=== PATIENT | female | born 1965 | race Caucasian/White ===

== ENCOUNTER 2017-05-15 14:13 | Emergency (ER) | payer OTHER, SELFPAY ==
[2017-05-15 14:14] VITALS: BP 176/107; PULSE 85; RESP 16; TEMP 36.8; O2SAT 98; BMI 37.8
--- NOTE | 2017-05-15 14:54 | ED.VISSUMM ---
- ER Visit Summary Date of Service: 05/15/17 Chief Complaint: Laceration History of Present Illness: The patient is a 51 F [id number]-wiky-ioxtqhno presenting with laceration to her right index finger that happened accidentally with a pair of scissors at home 1 hour ago. No other injuries. Physical Examination: She has a 1 cm partial-thickness laceration on the palmar aspect of the DIP right hand. She is neurovascular intact distally including two-point discrimination at 6 mm. Test Results: None Emergency Department Course and Treatment: Laceration was cleansed and irrigated. Verbal informed consent was obtained. She was infiltrated locally using 2 cc of lidocaine without epinephrine. It was then repaired using 2 size 5 sutures. She remains neurovascular intact distally afterwards. Treatment Plan: Follow-up for suture removal Disposition: Home in stable condition Impression: Initial encounter 1 cm right index finger laceration with repair This note was generated with [employer] dictation software. It may contain incorrect words, spelling, and punctuation that were not noted in review of the chart prior to signing ED Disposition - Plan for ED Patient: Chief Complaint: Laceration Instructions: ED Laceration All Referrals: Renetta Costa DO [Primary Care Provider] - 10 Day for suture removal
--- NOTE | 2017-05-15 15:00 | ED.DCSUM_ITS ---
- ER Visit Summary Date of Service: 05/15/17 Chief Complaint: Laceration History of Present Illness: The patient is a 51 F qwonc-ksjy-daunkire presenting with laceration to her right index finger that happened accidentally with a pair of scissors at home 1 hour ago. No other injuries. Physical Examination: She has a 1 cm partial-thickness laceration on the palmar aspect of the DIP right hand. She is neurovascular intact distally including two-point discrimination at 6 mm. Test Results: None Emergency Department Course and Treatment: Laceration was cleansed and irrigated. Verbal informed consent was obtained. She was infiltrated locally using 2 cc of lidocaine without epinephrine. It was then repaired using 2 size 5 sutures. She remains neurovascular intact distally afterwards. Treatment Plan: Follow-up for suture removal Disposition: Home in stable condition Impression: Initial encounter 1 cm right index finger laceration with repair This note was generated with [employer] dictation software. It may contain incorrect words, spelling, and punctuation that were not noted in review of the chart prior to signing ED Disposition - Plan for ED Patient: Chief Complaint: Laceration Instructions: ED Laceration All Referrals: Renetta Costa DO [Primary Care Provider] - 10 Day for suture removal
[2017-05-15] MEDS: Diphth,Pertuss(Acell),Tet Vac 0.5 ML Vial IM (15:09)
[2017-05-15 15:25] VITALS: BP 152/86; PULSE 92; RESP 16; O2SAT 98
== END 2017-05-15 15:38 | disposition home or self-care (01) ==
PROVIDERS: Emergency Provider Emergency Medicine; Family Provider Internal Medicine; PCP Internal Medicine
DX: S61.210A Laceration without foreign body of right index finger without damage to nail, initial encounter (principal); W27.2XXA Contact with scissors, initial encounter; Y93.9 Activity, unspecified; Y92.009 Unspecified place in unspecified non-institutional (private) residence as the place of occurrence of the external cause; Y99.9 Unspecified external cause status; I10 Essential (primary) hypertension
CPT/HCPCS: 12001; 90715; 99282

== ENCOUNTER → 2018-01-10 09:14 | Outpatient (CLI) | payer OTHER, SELFPAY ==
--- NOTE | 2018-01-10 09:16 | BI_ITS ---
MAMMOGRAPHY - BILATERAL SCREENING REASON FOR EXAM: Female, 52 years old. Routine annual screening examination. PERTINENT HISTORY: Non-contributory. History of left breast cyst. TECHNIQUE: Digital bilateral breast jenna (3D mammographic acquisition) in the CC and MLO projections. 2-D mediolateral oblique (MLO) and craniocaudad (CC) views of both breasts were obtained. CAD: Full Field Digital Mammography with Computer Added Detection was performed. COMPARISON: Comparison is made with prior outside examination dated December 10, 2016. FINDINGS: Breast Composition: The breasts are extremely dense, which lowers the sensitivity of mammography. There are no dominant masses or suspicious calcifications. No other significant abnormalities are identified. There has been no significant change since the prior study. BI/SCREENING MAMM (CAD), BILAT IMPRESSION: Stable bilateral screening mammogram. Yearly follow-up mammogram recommended. (A) ASSESSMENT CATEGORY: BIRADS Category 1: Negative. A letter regarding these results will be sent to the patient by the facility within 30 days. Approximately 10% of breast cancers are not detected by mammography. A normal mammogram should not delay biopsy of a clinically suspicious abnormality. [id number] Electronically Signed: Antonio Zaidi MD at 11:09 EDT Tel [phone], Service support ,
--- NOTE | 2018-01-10 09:21 | BD_ITS ---
STUDY: DUAL ENERGY X-RAY ABSORPTIOMETRY / DXA REASON FOR EXAM: Female, 52 years old. The patient is postmenopausal. No loss of height. TECHNIQUE: Bone Mineral Density (BMD) measurements of lumbar spine and bilateral hips were obtained. COMPARISON: None. FINDINGS: Lumbar Spine (L1-L4): g/cm2 (1.289) / T-score (0.9) / Z-score (1.5) Findings are suggestive of normal bone density with a low fracture risk. Left Femur Total: g/cm2 (1.183) / T-score (1.4) / Z-score (1.9) Left Femoral Neck: g/cm2 (1.102) / T-score (0.5) / Z-score (1.4) Right Femur Total: g/cm2 (1.176) / T-score (1.3) / Z-score (1.9) Right Femoral Neck: g/cm2 (1.042) / T-score (0.0) / Z-score (0.9) BD/Dexa Bone Density Study IMPRESSION: The patient is considered normal as outlined below according to World Steve Organization (WHO) criteria with a low fracture risk. Reference Information: The T-score is the number of standard deviations above or below the standard which is normal for young adults at their peak bone mineral density. The World Health Organization (WHO) interprets the T-scores as follows: Above -1 Normal bone density Between -1 and -2.5 Osteopenia Equal to / or below -2.5 Osteoporosis As a practical clinical guideline, osteopenia may be graded as follows: Mild -1 through -1.5 Moderate -1.6 through -2.0 Severe -2.1 through -2.4 The Z-score is the number of standard deviations above or below age-matched controls. A Z-score of less than -1.5 would be considered abnormal. References: 1. NIH Osteoporosis and Related Bone Diseases http://www.osteo.org 2. International Society for Clinical Densitometry http://www.iscd.org 3. National Osteoporosis Foundation http://www.nof.org Electronically Signed: Antonio Zaidi MD at 14:01 EDT Tel [phone], Service support ,
== END ==
PROVIDERS: Family Provider Internal Medicine; PCP Internal Medicine; Referring Provider Internal Medicine; Visit Provider Internal Medicine
DX: Z12.31 Encounter for screening mammogram for malignant neoplasm of breast (principal); Z78.0 Asymptomatic menopausal state
CPT/HCPCS: 77063; 77067; 77080

== ENCOUNTER → 2018-12-20 14:00 | Outpatient (CLI) | payer OTHER, SELFPAY ==
--- NOTE | 2018-12-20 15:34 | NEURO ---
NCS and/or EMG Patient Report Ordering Doctor: Renetta Costa DATE OF SERVICE: 12/20/18 Lyndsay Polanco is a 53-year-old female presents for electrodiagnostic testing of the upper limbs. She reports pain in the right elbow as well as numbness and tingling in both hands, worse on the right side. Electrodiagnostic findings: Right median motor nerve demonstrates prolonged distal latency with normal amplitude and conduction velocity. Normal left median motor response ulnar response is normal bilaterally, including conduction across the elbow. Normal median and ulnar F waves. Prolonged median sensory latency at the wrist bilaterally. Prolonged right median palmar latency normal ulnar and radial sensory responses. On needle EMG, all muscles tested in the upper limb showed no evidence of denervation with normal motor unit action potentials. Electrodiagnostic assessment: This is an abnormal study in the upper limbs. 1. Electrodiagnostic findings demonstrate bilateral median mononeuropathy. This is consistent with a mild left carpal tunnel syndrome and a moderate right carpal tunnel syndrome.
== END ==
PROVIDERS: Family Provider Internal Medicine; PCP Internal Medicine; Referring Provider Internal Medicine; Visit Provider Internal Medicine
DX: R20.2 Paresthesia of skin (principal)
CPT/HCPCS: 95886; 95912

== ENCOUNTER → 2019-01-25 14:23 | Outpatient (CLI) | payer OTHER, SELFPAY ==
[2019-01-25 14:09] VITALS: BMI 37.8
--- NOTE | 2019-01-25 14:24 | RAD_ITS ---
STUDY: X-RAY - RIGHT ELBOW REASON FOR EXAM: Female, 53 years old. Pain TECHNIQUE: 3 view(s) of the elbow. COMPARISON: None. FINDINGS: Normal visualized humerus, radius and ulna. 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 The soft tissue structures are unremarkable. RAD/Elbow min 3 Views IMPRESSION: Arthrosis of the elbow, as described above. Electronically Signed: Darrion Fry MD at 17:18 EDT , Service support ,
--- NOTE | 2019-01-25 14:24 | RAD_ITS ---
STUDY: X-RAY - RIGHT WRIST REASON FOR EXAM: Wrist pain. TECHNIQUE: 2 view(s) of the wrist were obtained. COMPARISON: Radiographs 04/19/2016. FINDINGS: Normal visualized distal radius and ulna. Normal radiocarpal articulation. Normal distal radioulnar articulation. Normal carpal bones. Normal carpal articulations. Normal carpometacarpal articulation of the thumb. Normal second through fifth carpometacarpal articulations. Normal visualized metacarpal bones. The soft tissue structures are unremarkable. RAD/Wrist 2 Views IMPRESSION: Normal x-ray examination of the right wrist. Electronically Signed: Rich Elizabeth MD at 15:35 EDT Tel , Service support ,
--- NOTE | 2019-01-25 14:24 | RAD_ITS ---
STUDY: X-RAY - LEFT WRIST REASON FOR EXAM: Wrist pain. TECHNIQUE: 2 view(s) of the wrist were obtained. COMPARISON: Radiograph report 09/01/2010. FINDINGS: Normal visualized distal radius and ulna. Normal radiocarpal articulation. Normal distal radioulnar articulation. Normal carpal bones. Normal carpal articulations. Normal carpometacarpal articulation of the thumb. Normal second through fifth carpometacarpal articulations. Normal visualized metacarpal bones. The soft tissue structures are unremarkable. RAD/Wrist 2 Views IMPRESSION: Normal x-ray examination of the left wrist. Electronically Signed: Rich Elizabeth MD at 15:40 EDT Tel , Service support ,
== END ==
PROVIDERS: Family Provider Internal Medicine; PCP Internal Medicine; Referring Provider Orthopaedic Surgery; Visit Provider Orthopaedic Surgery
DX: G56.03 Carpal tunnel syndrome, bilateral upper limbs (principal); M25.521 Pain in right elbow
CPT/HCPCS: 73080; 73100

== ENCOUNTER 2019-02-21 08:54 | Day surgery (SDC) | payer OTHER, SELFPAY ==
--- NOTE | 2019-01-25 03:54 | HP_ITS ---
I have re-examined the patient. There are no clinical changes since date of exam. Intake Vital Signs 01/25/19 Body Mass Index (BMI) 37.8 Intake Visit Reasons: Rt elbow Allergies acetaminophen [From Tylenol] Allergy (Verified 05/15/17 14:20) Rash cefadroxil hydrate [From Duricef] Allergy (Verified 05/15/17 14:20) Unknown Penicillins Allergy (Verified 05/15/17 14:20) Hives rofecoxib [From Vioxx] Allergy (Verified 05/15/17 14:20) Other zolpidem tartrate [From Ambien] Allergy (Verified 05/15/17 14:20) Swelling meperidine HCl [From Demerol] Adverse Reaction (Verified 05/15/17 14:20) Nausea Medications Atenolol [Tenormin (beta Joselin)] 25 mg PO DAILY 06/19/14 [History Confirmed 01/25/19] Fluticasone 0.05% [Flonase Nasal [place]] 2 spray NASAL DAILY 06/19/14 [History Confirmed 01/25/19] Valtrex 200 mg PO DAILY 06/19/14 [History Confirmed 01/25/19] duloxetine 30 mg capsule,delayed release 30 mg PO DAILY 01/25/19 [History Confirmed 01/25/19] lisinopril 20 mg tablet 20 mg PO DAILY 01/25/19 [History Confirmed 01/25/19] sertraline 100 mg tablet 100 mg PO DAILY 01/25/19 [History Confirmed 01/25/19] PFSH Social History (Updated 01/25/19 @ 15:54 by Lyndsay Parry DO) Smoking Status: Former smoker HPI Rt elbow: Surgical H&P: Yes Details: Parts of this documentation were recorded by a scribe, this documentation accurately reflects the service provided and the decisions made by me, Lyndsay Parry DO 01/25/19 [id number]. LYNDSAY GOSS is a 53 year old F here today for BL carpal tunnel syndrome. Patient had an EMG and this showed moderate carpal tunnel of the right wrist and mild carpal tunnel of the left wris.t Patient has had rigth elbow pain since last spring and has had her BL carpal tunnel syndrome for the last year. Patient has tried night splint which was not effective. Patient has a burning over right lateral epicondyle. Denies any injury or previosu injections. Denies any recent PT. Patient states her right lateral elbow causes her the greatest pain. ROS Const Reports weakness Musc Reports joint pain, Denies joint swelling, Reports muscle weakness, Reports numbness, Reports radiating pain into limb, Denies stiffness, Reports tingling Skin/Breast Denies redness, Denies lesions, Denies itching, Denies rash, Denies skin swelling Neuro Yes numbness, Yes tingling, Yes weakness Ortho Exam Right Wrist/Hand Right Wrist: Yes Durken's Test and Thenar Atrophy Motor: EPL: 5, FDP-2: 4, 1st Dorsal Interosseous: 5, APB: 5 Sensation: Radial: I, Ulnar: I, Median: D Left Wrist/Hand Left Wrist: Yes Durken's Test; no Thenar Atrophy Sensation: Radial: I, Ulnar: I, Median: I Right Elbow Test: Yes TTP Lateral Epicondyle, Yes Pain w/ resist wrist ext No rales rhonchi wheezing, no abdominal pain, no audible bruits Assessment & Plan Problems 1. Bilateral carpal tunnel syndrome G56.03 2. Right lateral epicondylitis M77.11 Plan X-rays were reviewed. There is no obvious fracture, dislocation, or lucency noted. Reviewed her EMG Educated on the anatomy of the wrists and innervation of the nerves, she has bilateral carpal tunnel, mild on left and moderate of the right, and her treatment options are do nothing, injections, night splint of the left wrist or release of the right due to the muscle wasting already visible. Reviewed the goal of surgery is stop progression, there may not be full return of strength. We can also inject the lateral epicondyle during surgery. Reviewed the pre-operative plans with the patient. Risks and benefits of the procedure were fully explained, including but not limited to infection, neurovascular injury, continued pain, arthritis, stiffness, need for further surgery, re-injury, DVT, PE, general risks of anesthesia, and loss of limb or life. The patient understands all the risks and does wish to proceed with written consent. Follow up post op or sooner if pain, swelling, numbness or associated symptoms, or concerns develop. All questions answered. Patient in agreement of plan. Orders Orders: Wrist 2 Views Today G56.03 Elbow min 3 Views Today M25.521 Wrist 2 Views Today G56.03 Wrist 2 Views Today G56.03 Coding Level of Care Code Off vis,est,level 4 Diagnoses Bilateral carpal tunnel syndrome G56.03 Right lateral epicondylitis M77.11 01/25/19 1554 <Electronically signed by Lyndsay drummond DO> Date _ Lyndsay Parry DO
[2019-01-25 14:09] VITALS: BMI 37.8
[2019-02-21] VITALS (7 sets, daily range): BP systolic 118–151; BP diastolic 84–95; PULSE 52–65; RESP 16–18; TEMP 36.1–36.5; O2SAT 98–100; BMI 35.5
[2019-02-21] MEDS: Lactated Ringers 1,000 ML 100 ML IV (09:29)
[2019-02-21] MEDS: Triamcinolone Acetonide 40 MG/ML Vial (10:35)
[2019-02-21] MEDS: Bupivacaine 0.5% PF 10 ML VIAL (10:35)
--- NOTE | 2019-02-21 10:57 | DCINST_ITS ---
Discharge Diet: No Restrictions - leave dressing intact, follow up in 2 weeks for dressing change, call with concerns Discharge Activity: May Not Drive May shower in (days): 1 Ice area for (Minutes): 20 - Every hour while awake. Weight Bearing Status: Weight bearing as tolerated Keep extremity elevated above heart level: Operative Extremity Call your doctor if your incision/area has: Continuous Slow Oozing, Sudden Increased Bleeding, Increased Pain/ Swelling, Increased Redness, Foul Smelling Discharge Call your doctor if you observe: Fever of 101 or Higher, Coldness, Increased [place] n, Numbness or Tingling, Change in Color, Calf discomfort Allergies/Adverse Reactions: Allergies acetaminophen [From Tylenol] Allergy (Verified 02/16/19 15:40) Rash cefadroxil hydrate [From Duricef] Allergy (Verified 02/16/19 15:40) Unknown Penicillins Allergy (Verified 02/16/19 15:40) Hives rofecoxib [From Vioxx] Allergy (Verified 02/16/19 15:40) Other zolpidem tartrate [From Ambien] Allergy (Verified 02/16/19 15:40) Swelling meperidine HCl [From Demerol] Adverse Reaction (Verified 02/16/19 15:40) Nausea Medications to take at Discharge Atenolol [Tenormin (beta Joselin)] 25 mg PO DAILY 06/19/14 Fluticasone 0.05% [Flonase Nasal [place]] 2 spray NASAL DAILY 06/19/14 Valtrex 200 mg PO DAILY 06/19/14 duloxetine 30 mg capsule,delayed release 30 mg PO DAILY 01/25/19 lisinopril 20 mg tablet 20 mg PO DAILY 01/25/19 sertraline 100 mg tablet 100 mg PO DAILY 01/25/19 Guanfacine HCl [Intuniv] 2 mg PO QHS 02/16/19 Oxycodone [Oxyir] 5 mg PO Q4H PRN PRN 5 Days #20 tab 02/21/19 The following prescriptions were given: Oxycodone [Oxyir] 5 mg PO Q4H PRN PRN 5 Days #20 tab PRN Reason: Pain Transmission Status: Sent to [facility] Primary Care Physician: Renetta Costa DO [Primary Care Provider] - Test Results: Test results from this visit will be discussed in further detail at your follow- up appointment, if applicable. Please Follow Up With: Lyndsay Parry, DO - [phone]
--- NOTE | 2019-02-21 10:58 | OP.PCM_ITS ---
Report of Operation Date of Procedure: 02/21/19 Pre-Operative Diagnosis: bilateral carpal tunnel syndrome, right lateral e picondylitis Post-Operative Diagnosis: same Surgery/Procedure Performed:: right carpal tunnel release, right lateral epicondyle injection, left carpal tunnel injection school age teacher: Javier Landaverde Type of Anesthesia:: Beto Lambert Anesthesiologist: Stanislaw Smith Estimated Blood Loss (mL): none Fluids Replaced: 500cc lr Description of Procedure: Preoperative note Patient is a 53 year old patient with nerve conduction study confirming carpal tunnel syndrome. Patient failed conservative treatment for her carpal tunnel elected proceed with right carpal tunnel release. Patient also has left carpal tunnel as well as right lateral epicondylitis and would like those injected Risks benefits and alternatives surgery discussed with patient. Risks including but not limited to blood loss, blood clot, infection, neurovascular injury, failure procedure, loss of life and loss of limb. Patient is aware like proceed with right carpal tunnel release, left carpal tunnel injection right lateral epicondyle injection. Operative note Patient seen and examined preoperative holding area. right hand was marked. History and physical and consent reviewed. Patient was brought to the operating room placed supine on the operating table. Sign in, anesthesia, antibiotics were administered. right upper extremity was prepped and draped after [place] block was initiated. All bony prominences well-padded SCDs placed on bilateral lower extremities. We marked out our incisions for our carpal tunnel release at the intersection of Luh's line in the fourth ray flexed. We extended about a centimeter and a half. Timeout was performed. We then checked ensure that the Beto block was working with pickups which it was not so we performed a local block of 10cc 1% lidocaine. We then used a 15 blade to make a skin incision. We then dissected down tenotomy syllable of the transverse carpal ligament. We then used a new 15 blade cut through the transverse carpal ligament down to the level of the median nerve. We then further released the median nerve the combination of the 15 blade and tenotomies. The nerve was grayish in color and adherent to the transverse carpal ligament volarly. We released the transverse carpal ligament distally to the fat pad and then proximally under standard technique. We then palpated to ensure that we released all of the transverse carpal ligament which we did. We irrigated the incision with copious amounts of sterile saline. All bleeders were coagulated. The incision was closed with interrupted 4-0 nylon stitches. Tourniquet was deflated for total working time of 9 minutes. Under standard sterile technique we also injected the left carpal tunnel as well as the right lateral epicondyle and placed Band-Aids. Patient tolerated procedure well there were no complications. Patient transferred to recovery room in stable condition. Postoperative note Hospital pharmacy has prescription Leave dressing clean dry and intact Follow-up in 2 weeks Call with concerns This note was generated with [employer] dictation software. It may contain incorrect words, spelling, and punctuation that were not noted in checking the note before signing
== END 2019-02-21 12:11 | disposition home or self-care (01) ==
LOC: SDC 08:54 → AC 08:55
PROVIDERS: Family Provider Internal Medicine; PCP Internal Medicine; Referring Provider Orthopaedic Surgery; Visit Provider Orthopaedic Surgery
PROC: (CPT 64721; principal; 2019-02-21 10:20)
DX: G56.03 Carpal tunnel syndrome, bilateral upper limbs (principal); M77.11 Lateral epicondylitis, right elbow; Z87.891 Personal history of nicotine dependence; Z88.0 Allergy status to penicillin; Z88.1 Allergy status to other antibiotic agents; Z88.5 Allergy status to narcotic agent; Z88.6 Allergy status to analgesic agent; Z88.8 Allergy status to other drugs, medicaments and biological substances
CPT/HCPCS: 01810; 20526; 64721; J7120; J2405

== ENCOUNTER → 2019-03-15 14:54 | Outpatient (CLI) | payer OTHER, SELFPAY ==
[2019-03-15 14:49] VITALS: BMI 35.5
--- NOTE | 2019-03-15 14:55 | RAD_ITS ---
STUDY: X-RAY - LEFT ANKLE REASON FOR EXAM: Pain, injury. TECHNIQUE: 3 view(s) of the ankle. COMPARISON: Radiographs of left foot 10/19/2016. FINDINGS: Normal visualized distal tibia and fibula. Normal medial and lateral malleoli. Normal tibiotalar articulation and ankle mortise. There are small posterior and plantar calcaneal enthesophytes. Otherwise, unremarkable visualized talus and calcaneus. The visualized subtalar, talonavicular, calcaneocuboid and tarsal articulations are normal. The soft tissue structures are unremarkable. RAD/Ankle min 3 Views IMPRESSION: Mild calcaneal enthesopathy. Otherwise, unremarkable x-ray examination of the left ankle. Electronically Signed: Rich Elizabeth MD at 15:26 EST Tel , Service support ,
== END ==
PROVIDERS: Family Provider Internal Medicine; PCP Internal Medicine; Referring Provider Orthopaedic Surgery; Visit Provider Orthopaedic Surgery
DX: M25.572 Pain in left ankle and joints of left foot (principal)
CPT/HCPCS: 73610

== ENCOUNTER 2019-03-21 06:55 | Emergency (ER) | payer OTHER, SELFPAY ==
[2019-03-15 14:49] VITALS: BMI 35.5
[2019-03-21 06:56] VITALS: BP 148/92; PULSE 64; RESP 16; TEMP 36.5; O2SAT 100; BMI 35.6
[2019-03-21 06:58] VITALS: BP 148/92; PULSE 65; RESP 16; TEMP 36.5; O2SAT 100
--- NOTE | 2019-03-21 07:11 | RAD_ITS ---
STUDY: X-RAY CHEST REASON FOR EXAM: Female, 53 years old. Nausea with chest pain. TECHNIQUE: AP portable chest. COMPARISON: None. FINDINGS: The lungs are clear and expanded. There is no demonstrated pleural abnormality. Normal size heart. Normal mediastinum and rika. Normal visualized pulmonary arteries. Normal visualized aortic arch and descending thoracic aorta. Normal visualized thoracic spine. Normal visualized ribs, clavicles, and shoulders. There is no demonstrated abnormality of the visualized soft tissue structures of the upper abdomen. RAD/Chest 1 View (Portable) IMPRESSION: Normal x-ray examination of the chest. Electronically Signed: Cain Flores MD at 7:34 EST , Service support ,
--- NOTE | 2019-03-21 07:11 | EKG12_ITS ---
Test Reason : Blood Pressure : / mmHG Vent. Rate : 057 BPM Atrial Rate : 057 BPM P-R Int : 138 ms QRS Dur : 072 ms QT Int : 468 ms P-R-T Axes : 029 -08 010 degrees QTc Int : 455 ms Sinus bradycardia Otherwise normal ECG Confirmed by MONALISA PIERSON, FRANCIS ([id number]), international editorial producer ANTHONY REECE ([id number]) on 03/28/2019 11:28:57 AM Referred By: KAYLAH Confirmed By:KOBI SHELDON MD
--- NOTE | 2019-03-21 07:12 | ED.VISSUMM ---
- ER Visit Summary Date of Service: 03/21/19 Chief Complaint: Epigastric pain History of Present Illness: The patient is a 53 F history hypertension and depression. Patient had a prior cholecystectomy. She states for a week she has been nauseated. The last 2 days she has had dry heaving primarily. And has developed epigastric abdominal pain. She denies any fever she has had some chills. No dysuria urgency nor frequency. No melena nor diarrhea or constipation. Nothing specifically makes the symptoms better or worse. She had some left wrist discomfort this morning and was concerned this could be potentially cardiac etiology and came in to be evaluated. She also thinks potentially this could be related to a new medication she started for depression in the last several weeks. Physical Examination: Middle-aged female no acute distress vital signs are stable and afebrile. Pulse ox 9% on room air no signs of hypoxia. H EENT exam unremarkable. Moist with membranes. Neck nontender no lymphadenopathy. Lungs clear to auscultation bilaterally. Heart regular rate and rhythm no murmur rate about 65. Abdomen is soft nontender normal bowel sounds no peritoneal signs. Where she complains of pain is epigastric region anteriorly not specifically tender. Nor is the right upper quadrant nor is the right lower quadrant. There is no Sandoval sign no McBurney's point tenderness. No hernia or masses. No signs of obstruction. No pulsatile mass. She is moving all 4 extremities. There are neurovascular intact. Calves are nontender without edema or cords. Both hands have equal and symmetrical tariff publishing agent strength. Strong radial pulses. And normal range of motion. Back is nontender. Neurologically she is awake and alert with no focal motor deficits. Test Results: CBC normal white count 11. Hemoglobin 15. Chemistries normal normal creatinine and gap. Liver enzymes normal. Lipase normal 107. Troponin normal. EKG sinus bradycardia rate of 57 unchanged from prior EKG from April. Chest x-ray portable 1 view read both by myself and the radiologist showed no acute abnormality with normal cardiac silhouette mediastinum. Emergency Department Course and Treatment: Patient has symptoms of nausea and primarily epigastric discomfort. She has a benign exam. Clinically I do not think is to be cardiac but we will do an EKG, chest x-ray and troponin along with abdominal labs. She will be treated with Zofran for her nausea. And reassess Treatment Plan: Repeat exam patient is doing well at 08 41. He is requesting additional nausea medication. I went over all test results with her and her family. Her abdomen is benign. She will be discharged home with outpatient follow-up. Zofran for nausea. And Protonix for possible gastritis. Disposition: dc Impression: Epigastric abdominal pain of uncertain etiology This note was generated with [employer] dictation software. It may contain incorrect words, spelling, and punctuation that were not noted in review of the chart prior to signing ED Disposition - Plan for ED Patient: Referrals: Renetta Costa DO [Primary Care Provider] -
[2019-03-21 07:18] VITALS: O2SAT 100
[2019-03-21] MEDS: Ondansetron 4 MG/2 ML Vial IV ×2 (07:21→08:46)
[2019-03-21 07:22] LABS: Absolute Lymphocyte Count 1.91 X10^3/uL (0.83-4.51); Absolute Neutrophil Count 8.7 X10^3/uL (2.0-7.7); Basophil# 0.04 X10^3/uL; Basophil% 0.4 % (0-1); Eosinophil# 0.06 X10^3/uL; Eosinophils% 0.5 % (0-5); Hemoglobin 15.1 g/dL (12.0-15.0); Lymphocyte # 1.91 X10^3/ul (4.0); Lymphocyte % 16.9 % (19-41); Mean Corpuscular Hgb 28.3 pg (27.0-32.0); Mean Corpuscular Volume 78.8 fL (81-99); Mean Platelet Vol. 10.3 fl (6.2-12.0); Monocyte# 0.58 X10^3/uL; Monocyte% 5.1 % (0-10); NRBC Flagged by Analyzer 0 % (0-5); Neutrophil # 8.68 X10^3/uL (2.7-7.7); Neutrophil % 76.7 % (47-70); Platelet Count 236 K/mm3 (150-450); RBC Distribution Width CV 13.1 % (11.6-14.6); RBC Distribution Width SD 36.8 fl (35.1-43.9); Red Blood Count 5.33 M/mm3 (4.2-5.4); White Blood Count 11.3 K/mm3 (4.4-11.0)
[2019-03-21 07:26] VITALS: BP 132/84; PULSE 60; RESP 17; O2SAT 100
[2019-03-21 07:40] LABS: AST(SGOT) 12 U/L (15-37); Alanine Aminotransfer ALT/SGPT 21 U/L (13-56); Albumin, Serum 4.3 g/dL (3.2-5.0); Alkaline Phosphatase 85 U/L (45-117); Anion Gap 7 (5-15); BUN 17 mg/dL (7-18); BUN/Creat Ratio 14.4 RATIO (10-20); Bilirubin, Direct 0.17 mg/dL (0.00-0.30); Calcium,Total 10.3 mg/dL (8.5-10.1); Chloride 106 mmol/L (98-107); Creatinine, Serum 1.18 mg/dL (0.55-1.02); EST Glomerular Filtration Rate 51 mL/min (>60); Est Glom Filt Rate - Afr Amer 62 mL/min (>60); Estimated Creatinine Clearance 47.61 ml/min; Globulin 3.5 g/dL (2.2-4.2); Glucose 118 mg/dL (74-106); Lipase 107 U/L (73-393); Potassium 3.9 mmol/L (3.5-5.1); Protein, Total 7.8 g/dL (6.4-8.2); Sodium Level 139 mmol/L (136-145)
--- NOTE | 2019-03-21 08:45 | ED.DEP ---
ED Disposition - Plan for ED Patient: Disposition: Home or Assisted Living Instructions: ABDOMINAL PAIN, Unknown Cause, (Female) Prescriptions: Pantoprazole Sodium [Protonix] 40 mg PO DAILY #20 tab Prescription Printed Ondansetron [Zofran Odt] 4 mg PO Q8H PRN PRN #10 tab PRN Reason: Nausea Prescription Printed Referrals: Renetta Costa DO [Primary Care Provider] - As soon as possible Additional Instructions: Follow-up with your doctor. Protonix for the abdominal pain which may be secondary to gastritis or reflux. Zofran as needed for nausea.
[2019-03-21 08:48] VITALS: BP 136/99; PULSE 59; RESP 16; TEMP 36.7; O2SAT 97
[2019-03-21 09:11] VITALS: BP 136/77; PULSE 78; RESP 16; O2SAT 98
--- NOTE | 2019-03-21 09:12 | ED.RN ---
THIS NURSE REVIEWED D/C INSTRUCTIONS WITH PT. PT VERBALIZED UNDERSTANDING OF INSTRUCTIONS. IV D/C. IV CATHETER INTACT. PT TOLERATED WELL. PT DENIES FURTHER NEEDS OR QUESTIONS AT THIS TIME. PT AMBULATES FROM ROOM ON OWN WITHOUT ASSISTANCE FROM STAFF
== END 2019-03-21 09:13 | disposition home or self-care (01) ==
PROVIDERS: Emergency Provider Emergency Medicine; Family Provider Internal Medicine; PCP Internal Medicine
DX: R10.13 Epigastric pain (principal); I10 Essential (primary) hypertension; F32.9 Major depressive disorder, single episode, unspecified; Z79.899 Other long term (current) drug therapy
CPT/HCPCS: 71045; 80048; 80076; 83690; 84484; 85025; 93005; 96374; 96375; 99284; A4216; J2405

== ENCOUNTER → 2019-04-02 11:07 | Outpatient (CLI) | payer OTHER, SELFPAY ==
[2019-03-21 06:56] VITALS: BMI 35.6
--- NOTE | 2019-04-02 11:08 | MRI_ITS ---
STUDY: MRI LEFT ANKLE WITHOUT CONTRAST REASON FOR EXAM: Female, 53 years old. Left ankle injury with deep central pain, particularly in the talonavicular region. TECHNIQUE: Standardized fat and water weighted pulse sequences were obtained in all 3 orthogonal planes. COMPARISON: Ankle x-rays dated March 15, 2019. FINDINGS: Normal subcutis adipose space. Mild posterior tibialis tenosynovitis (axial series 3 image 15). Normal flexor digitorum longus tendon. Normal flexor hallucis longus tendon. Normal peroneus longus and brevis tendons. Normal tibialis anterior tendon. Normal extensor hallucis longus tendon. Normal extensor digitorum longus tendons. Normal Achilles tendon and teno-osseous insertion. Normal plantar fascia. Normal plantar calcaneal tubercles. Normal intrinsic muscles of the rearfoot. Normal distal tibiofibular syndesmotic ligamentous complex. Normal lateral ligamentous complex. Normal subtalar ligaments and sinus tarsi. Normal deltoid ligamentous complexes. Normal plantar calcaneonavicular (spring) ligament. 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 Small inferior calcaneal spur (sagittal series 5 image 12). Normal talar dome. Normal subtalar articulations. Normal talonavicular articulation. Normal calcaneocuboid articulation. Normal navicular-cuneiform articulations. MRI/Lower Ext Joint Only (Routine) IMPRESSION: Mild posterior tibialis tenosynovitis. Small inferior calcaneal spur. 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 Electronically Signed: Juan Ness MD at 15:44 EST , Service support ,
== END ==
PROVIDERS: Family Provider Internal Medicine; PCP Internal Medicine; Referring Provider Orthopaedic Surgery; Visit Provider Orthopaedic Surgery
DX: M21.6X2 Other acquired deformities of left foot (principal); S99.912A Unspecified injury of left ankle, initial encounter
CPT/HCPCS: 73721

== ENCOUNTER → 2019-04-23 14:30 | Outpatient (CLI) | payer OTHER, SELFPAY ==
[2019-04-12 10:00] VITALS: BMI 35.6
--- NOTE | 2019-04-23 14:33 | BI_ITS ---
MAMMOGRAPHY - BILATERAL SCREENING REASON FOR EXAM: Female, 53 years old. Routine annual screening examination. PERTINENT HISTORY: Non-contributory. TECHNIQUE: Digital bilateral breast elijah (3D mammographic acquisition) in the CC and MLO projections. 2-D mediolateral oblique (MLO) and craniocaudad (CC) views of both breasts were obtained. CAD: Full Field Digital Mammography with Computer Added Detection was performed. COMPARISON: Comparison is made with prior study dated January 10, 2018. FINDINGS: Breast Composition: The breasts are extremely dense, which lowers the sensitivity of mammography. There are no dominant masses or suspicious calcifications. No other significant abnormalities are identified. There has been no significant change since the prior study. BI/SCREEN MAMM (CAD) W/ELIJAH BILAT IMPRESSION: Stable bilateral screening mammogram. Yearly follow-up mammogram recommended. (A) ASSESSMENT CATEGORY: BIRADS Category 1: Negative. A letter regarding these results will be sent to the patient by the facility within 30 days. Approximately 10% of breast cancers are not detected by mammography. A normal mammogram should not delay biopsy of a clinically suspicious abnormality. [id number] Electronically Signed: Antonio Zaidi, at 15:22 EST , Service support ,
== END ==
PROVIDERS: Family Provider Internal Medicine; PCP Internal Medicine; Referring Provider Internal Medicine; Visit Provider Internal Medicine
DX: Z12.31 Encounter for screening mammogram for malignant neoplasm of breast (principal)
CPT/HCPCS: 77063; 77067

== ENCOUNTER 2019-05-17 15:00 | Outpatient (RCR) | payer OTHER, SELFPAY ==
[2019-04-12 10:00] VITALS: BMI 35.6
--- NOTE | 2019-04-19 16:01 | HP.OTEVAL_ITS ---
Patient's Visit Information JAVY GOSS is a 53 year old F, referred to Occupational Therapy by Javy Parry DO, with a diagnosis of Right hand pillar pain following right. Date of Evaluation: 04/19/19 Occupational Therapist: DILLON Acevedo/Bernadette, CHT - Subjective Subjective: This 53 year old female was seen for OT eval with dx of pillar pain following a right CTR in 2018. Pt states pain is uncomfortable with ADLs and IADLS. 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 pt would like to decrease pain to return to PLOF. - ADLs Miscellaneous: Write Comments: pushing shopping cart - Pain right hand 3 Pain Intensity Range: 3, 5 - ROM Wrist: right/left WNL ROM Comments: pt demo full composite fist - Strength Timing Inspector: right 30# left 75# Lateral Pinch: right 6# left 12# Tripod Pinch: right 8# left 10# - Sensation Sensation Comments: states sensation returned following sx - Quick DASH-Disab of Arm,Shoulder& Hand Quick DASH Score: 40.0000 - Goals Goal:: PT will demo a increase in right local area network administrator strength by 20# to increase pts IND with ADLs and IADLS by d/c Goal:: pt will report no pain greater than 1/10 with right hand use with ADLs and IADLS by d.c Goal:: pt will demo understanding of scar mtg and desensitization by 3rd visit - Rehabilitation General Assessment: Pt demo with a decrease in right local area network administrator strength and pain limiting pts ind with ADLs and IADLs. Pt would benefit from skilled OT services 2x week for 4 weeks to decrease pain, increase strength to return pt to PLOF. Today therapist ed. pt on scar mtg pt demo understanding and agree to POC. Therapist will work on desensitization and PRE as pt vanesa. Rehabilitation Potential: Good - Anticipated Interventions Anticipated Interventions: A/AAROM/PROM, Strengthening, Scar Care, Desensitization, Sensory Retraining, Modalities - Visit Plan Frequency: 2x /Week Duration: 4 Weeks TEXT: Thank you for the opportunity to evaluate your patient. For Medicare and Medicare HMO plans, please review the plan of care and approve it. It will need to be FAXED BACK to us at [phone] for Medicare purposes. Please let me know if there are questions or concerns regarding this plan of care. Physician Signature: Date:
--- NOTE | 2019-05-18 08:56 | HP.OTDCSUM ---
HP - OT D/C Summary It has been my pleasure to treat LYNDSAY GOSS under orders from Dr. Lyndsay Parry, , for the diagnosis of Right hand pillar pain following right for a total of 8 visit(s). Please see the following information for a summary of their discharge status. - Overall Improvement % Improvement: 80 - Objective Objective/Function: Feels 80% improvement wants to continue at home. pt reports she is more ind. with ADLs does not have the pain with use of right hand for ADLS. noted some tenderness but better. right senior business objects developer strength 50#. Pt has met goals in OT and is D/C at this time. - Goals Patient Goals: Decrease Pain, Use Hand/Wrist/Arm Normally Again Goal:: PT will demo a increase in right senior business objects developer strength by 20# to increase pts IND with ADLs and IADLS by d/c Goal:: pt will report no pain greater than 1/10 with right hand use with ADLs and IADLS by d.c Goal:: pt will demo understanding of scar mtg and desensitization by 3rd visit - Plan Plan: D/C - D/C Information Discharge Comments: pt was seen 8 visitis in OT. Pt met goals in OT and will cont with HEP of scar mtg and desensitization. If there are questions or concerns regarding this patient's occupational therapy, please fell free to call me at [phone]. Thank you for the referral of this patient. Sincerely, Noemi Benjamin, OTR/L, CHT
== END 2019-05-17 19:00 | disposition home or self-care (01) ==
LOC: OT 15:00
PROVIDERS: Family Provider Internal Medicine; PCP Internal Medicine; Referring Provider Orthopaedic Surgery; Visit Provider Orthopaedic Surgery
DX: M79.641 Pain in right hand (principal)
CPT/HCPCS: 97035; 97110; 97140; 97166; 97530

== ENCOUNTER → 2019-11-26 | Outpatient (CLI) | payer OTHER, SELFPAY ==
[2019-04-12 10:00] VITALS: BMI 35.6
--- NOTE | 2019-11-26 17:19 | RAD_ITS ---
STUDY: X-RAY - CERVICAL SPINE REASON FOR EXAM: Female, 54 years old. Neck pain for years. TECHNIQUE: 3 view(s) of the cervical spine were obtained. COMPARISON: None FINDINGS: There are degenerative changes of the anterior atlantoaxial articulation. Normal odontoid process. Normal cervical lordosis. Normal vertebral bodies and endplates. Normal disc space heights. There is no evidence of acute fracture or loss of vertebral axial height. There is maintenance of normal alignment. The soft tissue structures are unremarkable. RAD/Cerv Spine 2 or 3 Views IMPRESSION: Degenerative changes of the atlantoaxial articulation. Electronically Signed: Guille Bolivar DO at 23:50 EDT Tel [phone], Service support ,
--- NOTE | 2019-11-26 17:20 | RAD_ITS ---
STUDY: X-RAY - RIGHT FOOT CLINICAL: Female, 54 years old. Pain for years. TECHNIQUE: 2 view(s) of the foot. COMPARISON: None. FINDINGS: There are enthesophytes at the insertions of the Achilles tendon and plantar aponeurosis upon an otherwise normal calcaneus. Normal talus and tarsal bones. Normal visualized subtalar, talonavicular, calcaneocuboid, tarsal and tarsometatarsal articulations. Normal metatarsi. There is degenerative arthrosis of the metatarsophalangeal joint of the hallux . Normal tibial and fibular sesamoid bones. Normal interphalangeal joint of the great toe. Normal phalanges of the great toe. Normal second through fifth metatarsophalangeal joints. Normal interphalangeal joints and phalanges of the lesser toes. The soft tissue structures are unremarkable. RAD/Foot 2 Views IMPRESSION: Mild arthrosis of the right foot. Electronically Signed: Guille Bolivar DO at 23:51 EDT Tel [phone], Service support ,
== END | disposition home or self-care (01) ==
LOC: MTRAD 17:19
PROVIDERS: PCP Internal Medicine; Referring Provider Internal Medicine; Visit Provider Internal Medicine
DX: M54.2 Cervicalgia (principal); M79.671 Pain in right foot
CPT/HCPCS: 72040; 73620

== ENCOUNTER 2020-01-22 15:46 | Outpatient (RCR) | payer OTHER, SELFPAY ==
[2019-12-04 15:54] VITALS: BMI 35.6
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
== END 2020-01-22 19:00 | disposition home or self-care (01) ==
LOC: PT 15:46
PROVIDERS: PCP Internal Medicine; Referring Provider Internal Medicine; Visit Provider Internal Medicine
DX: M54.2 Cervicalgia (principal)
CPT/HCPCS: 97110; 97161

== ENCOUNTER → 2020-06-06 10:05 | Outpatient (CLI) | payer OTHER, SELFPAY ==
[2019-12-04 15:54] VITALS: BMI 35.6
--- NOTE | 2020-06-06 10:21 | BI_ITS ---
MAMMOGRAPHY - BILATERAL SCREENING REASON FOR EXAM: Female, 54 years old. Routine annual screening examination. PERTINENT HISTORY: Non-contributory. TECHNIQUE: Digital bilateral breast elijah (3D mammographic acquisition) in the CC and MLO projections. 2-D mediolateral oblique (MLO) and craniocaudad (CC) views of both breasts were obtained. CAD: Full Field Digital Mammography with Computer Added Detection was performed. COMPARISON: Comparison is made with prior study dated 04/23/2019 and 01/10/2018. FINDINGS: Breast Composition: The breasts are extremely dense, which lowers the sensitivity of mammography. There are no dominant masses or suspicious calcifications. No other significant abnormalities are identified. There has been no significant change since the prior study. BI/SCRN MAMM (CAD)W/ELIJAH BILAT IMPRESSION: Stable bilateral screening mammogram. Yearly follow-up mammogram recommended. (A) ASSESSMENT CATEGORY: BIRADS Category 1: Negative. A letter regarding these results will be sent to the patient by the facility within 30 days. Approximately 10% of breast cancers are not detected by mammography. A normal mammogram should not delay biopsy of a clinically suspicious abnormality. [id number] Electronically Signed: Antonio Zaidi MD at 11:04 EST , Service support ,
== END ==
PROVIDERS: PCP Internal Medicine; Referring Provider Internal Medicine; Visit Provider Internal Medicine
DX: Z12.31 Encounter for screening mammogram for malignant neoplasm of breast (principal)
CPT/HCPCS: 77063; 77067

== ENCOUNTER 2021-04-20 16:51 | Outpatient (CLI) | payer OTHER, SELFPAY ==
--- NOTE | 2021-04-20 16:52 | MRI_ITS ---
EXAM: MR RIGHT UPPER EXTREMITY WITHOUT INTRAVENOUS CONTRAST, ELBOW CLINICAL INDICATION: pain ain radial side, posterior TECHNIQUE: Multiplanar and multisequence MR images of the right elbow without intravenous contrast. This report was created using [facility] report generation technology. COMPARISON: Pain from 03/26/2021 FINDINGS: LIGAMENTS: MEDIAL COLLATERAL: Unremarkable. Intact. LATERAL COLLATERAL: Unremarkable. Intact. ANNULAR: Unremarkable. Intact. TENDONS: BICEPS: Unremarkable. Intact. BRACHIALIS: Unremarkable. Intact. TRICEPS: Unremarkable. Intact. COMMON FLEXOR: Normal signal characteristics. COMMON EXTENSOR: Coronal STIR MR shows increased signal within a diffusely thickened common extensor tendon origin at the lateral humeral epicondyle. There is minimal fluid signal within the origin to indicate partial incomplete tear vs tendinopathy. MUSCLES: Unremarkable. Normal bulk and signal. FLUID: Unremarkable. No joint effusion. CARTILAGE: Unremarkable. Articular cartilage intact. BONES/JOINTS: Unremarkable. No fracture. No abnormal bone marrow signal. OTHER SOFT TISSUES: Unremarkable. The ulnar nerve is normal in the cubital tunnel. MRI/Upper Ext Joint Only(Routine) IMPRESSION: There is a partial incomplete tear vs tendinopathy of the common extensor tendon origin. Electronically Signed: Rogers Ward MD at 18:57 EST , Service support ,
== END 2021-04-20 23:59 | disposition short-term general hospital (02) ==
PROVIDERS: PCP Internal Medicine; Visit Provider Physician Assistant
DX: M77.11 Lateral epicondylitis, right elbow (principal)
CPT/HCPCS: 73221

== ENCOUNTER → 2021-10-03 | Outpatient (CLI) | payer OTHER, SELFPAY ==
--- NOTE | 2021-10-03 08:56 | MRI_ITS ---
EXAM: MR RIGHT UPPER EXTREMITY WITHOUT INTRAVENOUS CONTRAST, SHOULDER CLINICAL INDICATION: right shoulder pain -- continued pain despite conservative treatments TECHNIQUE: Multiplanar and multisequence MR images of the right shoulder without intravenous contrast. This report was created using [employer] report [employer] technology. COMPARISON: None. FINDINGS: TENDONS: SUPRASPINATUS: Unremarkable. Intact. INFRASPINATUS: Unremarkable. Intact. SUBSCAPULARIS: Unremarkable. Intact. TERES MINOR: Unremarkable. Intact. BICEPS BRACHII, LONG HEAD: Long head of biceps tendon and labral structures are intact. The extra-articular biceps tendon is in the bicipital groove. LIGAMENTS: GLENOHUMERAL: Unremarkable. Intact. MUSCLES: Muscles are unremarkable. No rotator cuff muscle atrophy. FLUID: Unremarkable. No joint effusion. No subacromial-subdeltoid space bursal fluid. CARTILAGE: No focal chondral defects or significant arthritic changes involving the glenohumeral joint. GLENOID LABRUM: Unremarkable. Intact, limited evaluation on non-arthrographic exam. BONES/JOINTS: Moderate hypertrophic degenerative changes of the acromioclavicular joint with small amount of AC joint fluid noted. Rotator cuff is intact. Physiologic amounts of glenohumeral joint fluid identified. Type II acromion with curved undersurface. No os acromiale. OTHER SOFT TISSUES: Unremarkable. No rotator interval edema. OTHER FINDINGS: No concerning marrow signal alterations. Neurovascular structures are unremarkable. MRI/Upper Ext Joint Only(Routine) IMPRESSION: 1. No rotator cuff or labral tearing. 2. Moderate hypertrophic degenerative changes of the acromioclavicular joint with mild mass effect on the underlying soft tissues. Electronically Signed: Doc Erazo MD at 11:40 EDT ,
== END | disposition home or self-care (01) ==
LOC: MRI 08:56
PROVIDERS: PCP Internal Medicine; Visit Provider Physician Assistant
DX: M75.41 Impingement syndrome of right shoulder (principal); M25.519 Pain in unspecified shoulder
CPT/HCPCS: 73221

== ENCOUNTER 2021-10-21 09:09 | Outpatient (RCR) | payer OTHER, SELFPAY | END 2021-10-21 09:09 | disposition home or self-care (01) | LOC: PT 09:09 | PROVIDERS: PCP Internal Medicine; Referring Provider Orthopaedic Surgery; Visit Provider Orthopaedic Surgery | DX: R69 Illness, unspecified (principal) ==

== ENCOUNTER → 2021-11-04 | Outpatient (CLI) | payer OTHER, SELFPAY ==
[2021-11-04 12:09] LABS: Hematocrit 36.4 % (37-47); Hemoglobin 12.5 g/dL (12.0-15.0); Mean Corp Hgb Conc 34.3 g/dL (32-36); Mean Corpuscular Hgb 28.3 pg (27.0-32.0); Mean Corpuscular Volume 82.5 fL (81-99); Mean Platelet Vol. 10.7 fl (6.2-12.0); Platelet Count 184 K/mm3 (150-450); RBC Distribution Width CV 13.3 % (11.6-14.6); RBC Distribution Width SD 40.1 fl (35.1-43.9); Red Blood Count 4.41 M/mm3 (4.2-5.4); White Blood Count 3.6 K/mm3 (4.4-11.0)
[2021-11-04 12:40] LABS: Vitamin B12 432 pg/mL (211-911); Vitamin D,25 Hydroxy 43.9 ng/mL
[2021-11-04 13:01] LABS: ALB/GLOB Ratio 1.2 RATIO (0.9-2.4); AST(SGOT) 11 U/L (15-37); Alanine Aminotransfer ALT/SGPT 19 U/L (13-56); Albumin, Serum 3.8 g/dL (3.2-5.0); Alkaline Phosphatase 76 U/L (45-117); Anion Gap 6 (5-15); BUN 25 mg/dL (7-18); BUN/Creat Ratio 19.7 RATIO (10-20); Calcium,Total 10.1 mg/dL (8.5-10.1); Chloride 108 mmol/L (98-107); Cholesterol 187 mg/dL (200); Creatinine, Serum 1.27 mg/dL (0.55-1.02); EST Glomerular Filtration Rate 46 mL/min (>60); Est Glom Filt Rate - Afr Amer 56 mL/min (>60); Ferritin 465 ng/mL (8-252); Globulin 3.1 g/dL (2.2-4.2); Glucose 96 mg/dL (74-106); High Density Lipoprotein 53 mg/dL; Iron 61 ug/dL (50-170); Iron Binding Capacity,Total 293 ug/dL (250-450); PERCENT IRON SATURATION 20.8 % (15.0-55.0); Potassium 3.7 mmol/L (3.5-5.1); Protein, Total 6.9 g/dL (6.4-8.2); Sodium Level 140 mmol/L (136-145); Thyroid Stim Hormone (TSH) 1.86 uIU/mL (0.358-3.74); Triglycerides 87 mg/dL; Very Low Density Lipoprotein 17 mg/dL (5-40)
[2021-11-04 15:09] LABS: Color, Urine Yellow (Yellow); Glucose, Dipstick Normal (Normal); Ketone-Dipstick Negative (Negative); Leukocyte Esterase-Dipstick 100 /ul (Negative); Nitrite-Dipstick Negative (Negative); Occult Blood-Urine Negative /ul (Negative); Protein-Dipstick 15 mg/dl (Negative); Urine Bilirubin Dipstick Negative (Negative); Urine Clarity Clear (Clear); Urine Urobilinogen Normal (Normal)
== END | disposition home or self-care (01) ==
LOC: MTLAB 11:05
PROVIDERS: PCP Internal Medicine; Referring Provider Physician Assistant; Visit Provider Physician Assistant
DX: Z79.899 Other long term (current) drug therapy (principal)
CPT/HCPCS: 36415; 80053; 80061; 81002; 82306; 82607; 82728; 82746; 83540; 83550; 84443; 85027

== ENCOUNTER 2021-11-11 10:30 | Outpatient (RCR) | payer OTHER, SELFPAY ==
--- NOTE | 2021-07-31 10:59 | HP.PTEVAL_ITS ---
Patient's Visit Information JAVY GOSS is a 56 year old F referred to Physical Therapy by VIRAJ Joseph with a diagnosis of Right Shoulder Impingment. Date of Evaluation: 07/31/21 Physical Therapist: Leila Romero DPT - Visit Plan Frequency: 2x /Week Duration: 4 Weeks Plan: Impingement of the right shoulder- Focus on scapular strength/stabilization- modality of US and TENS as needed for pain mgmt and inflammation. HEP Given IE: Postural education, scapular retractions, upper trap stretch, levator stretch - Subjective Patient reports that her right shoulder pain- has been going on since April- About 3 weeks ago she fell on the ice and she jammed the shoulder. Had a cortisone injection over spring but it did not help at all. The pain is a constant ache. Right in the shoulder joint-does radiate to the anterior shoul asif. Worst: 6/10 Agg: moving it backwards, pulling up pants in the back. Best: 0/10 Eases: resting it in close to her body. No finger dexterity or program coordinator executive education strength- no N/T. Right hand dominate. Does have some cervical pain along the upper trap- but no GONZALEZ, blurred vision or dizziness. Sleep: disturbed- hard to sleep on that side- side sleeper. Work: [employer] School [employer]- [employer]- sitting on her computer a lot. PMHx/Meds: in chart from ortho - Objective Posture: Fh, RS- does guard her right UE. Gait: no deviation noted- good arm swing and trunk rotation. Palpation: tender along infraspinatus, upper trap from the occiput to the tip of the acromion. ROM: Flexion/Abd: WFL pain from 90 degrees to 180 degrees, IR: greater troch, ER: 50 degrees. Strength: Learning Developer: Right: 40lbs Left: 50lbs Shoulder: Extn: 20 lbs Flexion: 18.4 lbs Abd: 8lbs Add: 22 lbs IR: 17lbs ER: 12.5, Flexion: 4+/5 Learning Developer: 50 - Special Tests R Shoulder Drop Sign - IS Test: Positive R Shoulder Empty Can - SS: Positive R Shoulder Belly Press - SupScap: Positive R Shoulder Neer - Impingement: Positive R Shoulder Patterson Vazquez - Impingement: Positive - Balance/Special Test Scores Quick DASH Score: 31.8175 - Goals Goal 1:: Patient will be I with HEP and progression Goal Time Frame: 4-6 Weeks Goal 2:: Patient will maintain proper posture t/o to demo increased scapular s/s Goal Time Frame: 4-6 Weeks Goal 3:: Patient will demo full AROM Goal Time Frame: 4-6 Weeks Goal 4:: Patient will report 80% improvement Goal Time Frame: 4-6 Weeks - Rehabilitation Potential Physical Therapy Diagnosis: Patient presents with hypomobility- she has decreased UE and scapular s/s, Shoulder pain free ROM and muscular endurance leading to poor posture and increased pain with ADL's. Rehabilitation Potential: Good - Anticipated Interventions Patient/Client Instruction: Educate patient on: Benefits of Fitness Program Therapeutic Exercise to Include: Strength training, Endurance training, Coordination, Agility training, Body mechanics, Postural training, Flexibilty training, Gait and locomotor training, Neuromotor development, Passive ROM, Active ROM, Dynamic Lumbar Stabilization, Scapular Strength/Stabilization For the Purpose of:: To improve muscle performance and motor function TENS: Yes Cryotherapy (ice pack, ice massage): Yes Thermo therapy (hot pack): Yes Ultrasound (thermal/non thermal): Yes Thank you for the opportunity to evaluate your patient. For Medicare and Medicare HMO plans, please review the plan of care and approve it. It will need to be FAXED BACK to us at [phone] for Medicare purposes. For Medicare only, by signing this I certify the plan of care. Please let me know if there are questions or concerns regarding this plan of care. Physician Signature: Date:
--- NOTE | 2021-09-02 15:52 | HP.PTDCSUM_ITS ---
It has been my pleasure to treat JAVY GOSS referred by VIRAJ Joseph, with the diagnosis of Right Shoulder Impingment for a total of 8 visit(s). Discharge Date: Please see the following information for a summary of their discharge status. Subjective: Patient reports that she is still having a lot of shoulder pain- thinks like closing a zip lock baggie, washing her hands etc. She has been doing all of his stuff at home and its just not better. Goes back Wed to [facility] RUE Pain Intensity (Out of 10): 3 % Improvement: 0 Objective/Function: Posture: Fh, RS- does guard her right UE. Gait: no deviation noted- good arm swing and trunk rotation. Palpation: tender along i nfraspinatus, upper trap from the occiput to the tip of the acromion. ROM: Flexion/Abd: WFL pain from 90 degrees to 130 degrees, IR: greater troch, ER: 50 degrees. Strength: Fusing Furnace Loader: Right: 40lbs Left: 50lbs Shoulder: Extn: 16.9 lbs Flexion: 16.3 lbs Abd: 8lbs Add: 25 lbs IR: 11 lbs ER: 13 , Flexion: 4+/5 Fusing Furnace Loader: 50 Goal 1:: Patient will be I with [facility] and progression Goal Progress: Progressing Goal 2:: Patient will maintain proper posture t/o to demo increased scapular s/s Goal Progress: Not Progressing Goal 3:: Patient will demo full AROM Goal Progress: Not Progressing Goal 4:: Patient will report 80% improvement Goal Progress: Not Progressing Plan: 09/02/21: Discharge to [facility] and return to [facility] for further evaluation. Impingement of the right shoulder- Focus on scapular strength/stabilization- modality of US and TENS as needed for pain mgmt and inflammation ,add manual therapy If there are questions or concerns regarding this patient's physical therapy, please feel free to call me at [phone]. Thank you for the referral of this patient. Sincerely, Leila Romero, LENNIET Balance/Gait/Functional tests - Balance/Special Test Scores Quick DASH Score: [phone]
--- NOTE | 2021-10-21 11:12 | HP.PTREVAL ---
VIRAJ Joseph, It has been my pleasure to treat JAVY GOSS over the last 9 visits for Right Shoulder Impingment. Please see the progress note below for an update on the physical therapy plan of care! Subjective: Patient reports that she had an MRI which was negative and she had a cortisone injection (2 weeks)- she has more movement and less pain but not gone. 20% to normal. Has not been doing exercises at home- but does move it in the pool. Pain is located in the top of the shoulder and radiates down to the anterior deltoid. Objective/Function: Posture: FH, RS- does guard her right UE. Gait: no deviation noted- good arm swing and trunk rotation. Palpation: tender along infraspinatus, upper trap from the occiput to the tip of the acromion. ROM: Flexion: 125 degrees Abd:100 degrees, IR: pocket, ER: 40 degrees. Strength: Marketing Analytics Manager: Right: 40lbs Left: 50lbs Shoulder: Extn: 17 lbs Flexion: 16 lbs Abd: 4lbs Add: 20 lbs IR: 13 lbs ER: 9 , Flexion: 4+/5 Marketing Analytics Manager: 40 Plan Plan: 10/21/21: 2x a week for 4 weeks to continue towards original goals- no tears on MRI. 09/02/21: Discharge to [facility] and return to [facility] for further evaluation. Impingement of the right shoulder- Focus on scapular strength/stabilization- modality of US and TENS as needed for pain mgmt and inflammation ,add manual therapy Balance/Gait/Functional tests - Balance/Special Test Scores Quick DASH Score: 27.2725 Goals Goal 1:: Patient will be I with HEP and progression Goal Time Frame: 4-6 Weeks Goal Progress: Progressing Goal 2:: Patient will maintain proper posture t/o to demo increased scapular s/s Goal Time Frame: 4-6 Weeks Goal Progress: Not Progressing Goal 3:: Patient will demo full AROM Goal Time Frame: 4-6 Weeks Goal Progress: Not Progressing Goal 4:: Patient will report 80% improvement Goal Time Frame: 4-6 Weeks Goal Progress: Not Progressing Anticipated Interventions Patient/Client Instruction: Educate patient on: Benefits of Fitness Program Therapeutic Exercise to Include: Strength training, Endurance training, Coordination, Agility training, Body mechanics, Postural training, Flexibilty training, Gait and locomotor training, Neuromotor development, Passive ROM, Active ROM, Dynamic Lumbar Stabilization, Scapular Strength/Stabilization For the Purpose of:: To improve muscle performance and motor function TENS: Yes Cryotherapy (ice pack, ice massage): Yes Thermo therapy (hot pack): Yes Ultrasound (thermal/non thermal): Yes Please do not hesitate to contact me at [phone] by phone or if you have questions or concerns regarding this new plan of care! Sincerely, LENNIE AraizaT
--- NOTE | 2021-11-11 11:18 | HP.PTDCSUM_ITS ---
It has been my pleasure to treat JAVY GOSS referred by VIRAJ Joseph, with the diagnosis of Right Shoulder Impingment for a total of 14 visit(s). Discharge Date: Please see the following information for a summary of their discharge status. Subjective: Patient reports the shoulder is a little better- no sharp/shooting pains- she has more ROM and less pain overall. The pain is always there achy- but its not as painful. She feels that going back to school she would like to try exercise on her own. RUE Pain Intensity (Out of 10): 1 % Improvement: 70 Objective/Function: Posture: FH, RS- does guard her right UE. Gait: no deviation noted- good arm swing and trunk rotation. Palpation: tender along infraspinatus, upper trap from the occiput to the tip of the acromion. ROM: Flexion: 140 degrees Abd:150 degrees, IR: pocket, ER: 50 degrees. Strength: Chief Executive Or Managing Director: Right: 40lbs Left: 50lbs Shoulder: Extn: 18 lbs Flexion: 23 lbs Abd: 8lbs Add: 22 lbs IR: 20 lbs ER: 12 , Flexion: 4+/5 Chief Executive Or Managing Director: 40 Goal 1:: Patient will be I with HEP and progression Goal Progress: Progressing Goal 2:: Patient will maintain proper posture t/o to demo increased scapular s/s Goal Progress: Not Progressing Goal 3:: Patient will demo full AROM Goal Progress: Not Progressing Goal 4:: Patient will report 80% improvement Goal Progress: Not Progressing Plan: 11/11/21: Discharge to home exercise program. Encouraged to call if question. If there are questions or concerns regarding this patient's physical therapy, please feel free to call me at [phone]. Thank you for the referral of this patient. Sincerely, Leila Romero, DPT Balance/Gait/Functional tests - Balance/Special Test Scores Quick DASH Score: 22.7250
== END 2021-11-11 12:38 | disposition home or self-care (01) ==
LOC: PT 10:30
PROVIDERS: PCP Internal Medicine; Referring Provider Physician Assistant; Visit Provider Physician Assistant
DX: M25.811 Other specified joint disorders, right shoulder (principal); M75.51 Bursitis of right shoulder
CPT/HCPCS: 97035; 97110; 97140; 97162; 97164

== ENCOUNTER → 2022-09-22 | Outpatient (CLI) | payer OTHER, SELFPAY ==
--- NOTE | 2022-09-22 14:33 | BI_ITS ---
MAMMOGRAPHY - BILATERAL SCREENING REASON FOR EXAM: Female, 57 years old. Routine annual screening examination. PERTINENT HISTORY: Non-contributory. TECHNIQUE: Digital bilateral breast elijah (3D mammographic acquisition) in the CC and MLO projections. 2-D mediolateral oblique (MLO) and craniocaudad (CC) views of both breasts were obtained. CAD: Full Field Digital Mammography with Computer Added Detection was performed. COMPARISON: Comparison is made with prior study dated 07/04/2020 and April 23, 2019. FINDINGS: Breast Composition: The breasts are extremely dense, which lowers the sensitivity of mammography. There are no dominant masses or suspicious calcifications. No other significant abnormalities are identified. There has been no significant change since the prior study. BI/SCRN MAMM (CAD)W/ELIJAH BILAT IMPRESSION: Stable bilateral screening mammogram. Yearly follow-up mammogram recommended. (A) ASSESSMENT CATEGORY: BIRADS Category 1: Negative. A letter regarding these results will be sent to the patient by the facility within 30 days. Approximately 10% of breast cancers are not detected by mammography. A normal mammogram should not delay biopsy of a clinically suspicious abnormality. [id number] Electronically Signed: Antonio Zaidi MD at 15:32 EDT ,
== END | disposition home or self-care (01) ==
LOC: OPBI 14:32
PROVIDERS: PCP Internal Medicine; Referring Provider Internal Medicine; Visit Provider Internal Medicine
DX: Z12.31 Encounter for screening mammogram for malignant neoplasm of breast (principal)
CPT/HCPCS: 77063; 77067

== ENCOUNTER → 2022-10-13 | Outpatient (CLI) | payer OTHER, SELFPAY ==
--- NOTE | 2022-10-13 12:28 | US_ITS ---
INDICATION: CKD, STAGE 3A EXAMINATION: Ultrasound US Kidney(s) complete (eg, kidneys and bladder) TECHNIQUE: Pal scale and color doppler images were obtained of the kidneys. COMPARISON: Renal ultrasound 04/29/2015 FINDINGS: RIGHT KIDNEY: 11.2 cm length. There is no hydronephrosis. Heterogeneous with increased cortical echogenicity. LEFT KIDNEY: 12.2 cm length. There is no hydronephrosis. No shadowing calculus, focal lesion or perinephric collection is demonstrated. URINARY BLADDER: Mildly distended. Volume 47 mL. Small nodule adjacent to the spleen likely a splenule. US/Kidney and Bladder IMPRESSION: No hydronephrosis. Right kidney with increased cortical echogenicity consistent with medical renal disease. Similar to prior study. Electronically Signed: Kassi English MD at 23:27 EDT ,
== END | disposition home or self-care (01) ==
LOC: US 12:28
PROVIDERS: PCP Internal Medicine; Referring Provider Internal Medicine Nephrology; Visit Provider Internal Medicine Nephrology
DX: N18.31 Chronic kidney disease, stage 3a (principal)
CPT/HCPCS: 76770

== ENCOUNTER → 2022-12-20 | Outpatient (CLI) | payer OTHER, SELFPAY ==
[2022-12-20 13:13] LABS: Bacteria 0 SEEN /hpf (None Seen); Mucous, Urine 0 SEEN /hpf (<or=2+); Red Blood Cells-Urine 0 SEEN /hpf (0-5); Squamous Epithelial Cells - UA 0 SEEN /hpf (5-10)
[2022-12-20 15:25] LABS: Absolute Neutrophil Count 3.7 X10^3/uL (2.0-7.7); Basophil# 0.03 X10^3/uL; Basophil% 0.4 % (0-1); Eosinophil# 0.25 X10^3/uL; Eosinophils% 3.7 % (0-5); Hemoglobin 15.1 g/dL (12.0-15.0); Mean Corp Hgb Conc 35.1 g/dL (32-36); Mean Corpuscular Hgb 27.6 pg (27.0-32.0); Mean Corpuscular Volume 78.5 fL (81-99); Mean Platelet Vol. 10.7 fl (6.2-12.0); Monocyte# 0.43 X10^3/uL; Monocyte% 6.4 % (0-10); NRBC Flagged by Analyzer 0 % (0-5); Neutrophil # 3.74 X10^3/uL (2.7-7.7); Neutrophil % 55.4 % (47-70); Platelet Count 326 K/mm3 (150-450); RBC Distribution Width CV 13.2 % (11.6-14.6); RBC Distribution Width SD 37.4 fl (35.1-43.9); Red Blood Count 5.48 M/mm3 (4.2-5.4); White Blood Count 6.8 K/mm3 (4.4-11.0)
[2022-12-20 15:44] LABS: Color, Urine Yellow (Yellow); Glucose, Dipstick Normal (Normal); Ketone-Dipstick Negative (Negative); Leukocyte Esterase-Dipstick 500 /ul (Negative); Nitrite-Dipstick Negative (Negative); Occult Blood-Urine Negative /ul (Negative); Protein-Dipstick Negative (Negative); Urine Bilirubin Dipstick Negative (Negative); Urine Clarity Clear (Clear); Urine Urobilinogen Normal (Normal); Urine pH 6.5 (5.0 - 8.0)
[2022-12-20 15:54] LABS: White Blood Cells 5-10 SEEN /hpf (0-5)
[2022-12-20 15:58] LABS: Vitamin B12 489 pg/mL (211-911); Vitamin D,25 Hydroxy 54.4 ng/mL
[2022-12-20 16:00] LABS: Hemoglobin A1c 4.8 % (3.8-5.6)
[2022-12-20 16:05] LABS: Microalbumin,Random Urine 5.9 mg/L (NO RANGE EST.); Microalbumin:Creatinine Ratio 3.5 mg/g CRE (<30 mg/g CRE)
[2022-12-20 16:22] LABS: ALB/GLOB Ratio 1.2 RATIO (0.9-2.4); AST(SGOT) 15 U/L (15-37); Alanine Aminotransfer ALT/SGPT 34 U/L (13-56); Alkaline Phosphatase 105 U/L (45-117); Anion Gap 9 (5-15); BUN 30 mg/dL (7-18); BUN/Creat Ratio 20.3 RATIO (10-20); Calcium,Total 10.3 mg/dL (8.5-10.1); Chloride 102 mmol/L (98-107); Cholesterol 170 mg/dL (200); Creatinine, Serum 1.48 mg/dL (0.55-1.02); EST Glomerular Filtration Rate 39 mL/min (>60); Est Glom Filt Rate - Afr Amer 47 mL/min (>60); Globulin 3.4 g/dL (2.2-4.2); Glucose 103 mg/dL (74-106); High Density Lipoprotein 45 mg/dL; Protein, Total 7.4 g/dL (6.4-8.2); Sodium Level 137 mmol/L (136-145); Triglycerides 175 mg/dL; Very Low Density Lipoprotein 35 mg/dL (5-40)
[2022-12-23 13:08] LABS: Angiotensin Convert Enzyme 45 U/L (14-82); PROEL- A/G Ratio 1.4 (0.7-1.7); PROEL- Albumin 4.1 g/dL (2.9-4.4); PROEL- Alpha-1 Globulin 0.2 g/dL (0.0-0.4); PROEL- Alpha-2 Globulin 0.8 g/dL (0.4-1.0); PROEL- Beta Globulin 1.1 g/dL (0.7-1.3); PROEL- Globulin, Total 2.9 g/dL (2.2-3.9)
== END | disposition home or self-care (01) ==
LOC: MTLAB 13:09
PROVIDERS: PCP Internal Medicine; Referring Provider Internal Medicine; Visit Provider Internal Medicine
DX: R73.01 Impaired fasting glucose (principal); I10 Essential (primary) hypertension; R53.83 Other fatigue
CPT/HCPCS: 36415; 80053; 80061; 81001; 82043; 82164; 82306; 82570; 82607; 83036; 84165; 84443; 85025

== ENCOUNTER → 2023-03-09 | Outpatient (CLI) | payer OTHER, SELFPAY ==
[2023-03-09 17:35] LABS: Color, Urine Yellow (Yellow); Glucose, Dipstick Normal (Normal); Ketone-Dipstick Negative (Negative); Leukocyte Esterase-Dipstick 100 /ul (Negative); Nitrite-Dipstick Negative (Negative); Occult Blood-Urine Negative /ul (Negative); Protein-Dipstick 15 mg/dl (Negative); Specific Gravity, Urine 1.025 (1.002-1.030); Urine Bilirubin Dipstick Negative (Negative); Urine Clarity Clear (Clear); Urine Urobilinogen Normal (Normal)
[2023-03-09 17:54] LABS: Anion Gap 7 (5-15); BUN 20 mg/dL (7-18); BUN/Creat Ratio 16.3 RATIO (10-20); Calcium,Total 9.7 mg/dL (8.5-10.1); Chloride 104 mmol/L (98-107); Creatinine, Serum 1.23 mg/dL (0.55-1.02); EST Glomerular Filtration Rate 48 mL/min (>60); Est Glom Filt Rate - Afr Amer 58 mL/min (>60); Glucose 83 mg/dL (74-106); Potassium 3.9 mmol/L (3.5-5.1); Sodium Level 137 mmol/L (136-145)
[2023-03-09 18:19] LABS: Microalbumin,Random Urine 18.4 mg/L (NO RANGE EST.); Microalbumin:Creatinine Ratio 8.4 mg/g CRE (<30 mg/g CRE)
== END | disposition home or self-care (01) ==
LOC: MTLAB 15:12
PROVIDERS: PCP Internal Medicine; Referring Provider Internal Medicine Nephrology; Visit Provider Internal Medicine Nephrology
DX: N18.31 Chronic kidney disease, stage 3a (principal)
CPT/HCPCS: 36415; 80048; 81002; 82043; 82570

== ENCOUNTER → 2023-06-06 | Outpatient (CLI) | payer OTHER, SELFPAY ==
[2023-06-06 17:58] LABS: Anion Gap 3 (5-15); BUN 20 mg/dL (7-18); BUN/Creat Ratio 16.7 RATIO (10-20); Calcium,Total 10.2 mg/dL (8.5-10.1); Chloride 108 mmol/L (98-107); EST Glomerular Filtration Rate 49 mL/min (>60); Est Glom Filt Rate - Afr Amer 59 mL/min (>60); Glucose 96 mg/dL (74-106); Sodium Level 139 mmol/L (136-145)
== END | disposition home or self-care (01) ==
PROVIDERS: PCP Internal Medicine; Referring Provider Internal Medicine Nephrology; Visit Provider Internal Medicine Nephrology
DX: N18.31 Chronic kidney disease, stage 3a (principal)
CPT/HCPCS: 36415; 80048

== ENCOUNTER → 2023-11-18 | Outpatient (CLI) | payer OTHER, SELFPAY ==
--- NOTE | 2023-11-18 12:37 | BI_ITS ---
MAMMOGRAPHY - BILATERAL SCREENING 3-D TOMOSYNTHESIS REASON FOR EXAM: Female, 58 years old. SCRN MAMM (CAD)W/ELIJAH BILAT -- Encounter for screening mammogram for mallignant neoplasm of fabian PERTINENT HISTORY: No significant family history. TECHNIQUE: 2-D mammograms and 3-D Tomosynthesis of the breast (s) were performed. CAD was performed. COMPARISON: 09/22/2022 FINDINGS: The breast composition is Extermely dense tissue. Scattered benign calcifications are seen. No dense spiculated masses or suspicious microcalcifications are identified. No architectural distortion is identified. There is no skin thickening or retraction. There has been no significant change since the prior study. BI/SCRN MAMM (CAD)W/ELIJAH BILAT IMPRESSION: No mammographic signs of malignancy. Routine yearly mammograms recommended. ASSESSMENT CATEGORY: BIRADS Category 1: Negative. A letter regarding these results will be sent to the patient by the facility within 30 days. FOLLOW UP RECOMMENDATION: Yearly follow up mammogram recommended. (A) Approximately 10% of breast cancers are not detected by mammography. A normal mammogram should not delay biopsy of a clinically suspicious abnormality. Electronically Signed: Benny Barlow MD at 13:13 EDT ,
== END | disposition home or self-care (01) ==
LOC: OPBI 12:36
PROVIDERS: PCP Internal Medicine; Referring Provider Internal Medicine; Visit Provider Internal Medicine
DX: Z12.31 Encounter for screening mammogram for malignant neoplasm of breast (principal)
CPT/HCPCS: 77063; 77067

== ENCOUNTER → 2024-07-07 | Outpatient (CLI) | payer OTHER, SELFPAY ==
[2024-07-07 10:49] LABS: Bacteria 0 SEEN /hpf (None Seen); Mucous, Urine 0 SEEN /hpf (<or=2+)
[2024-07-07 11:42] LABS: Color, Urine Yellow (Yellow); Glucose, Dipstick Normal (Normal); Ketone-Dipstick Negative (Negative); Leukocyte Esterase-Dipstick 25 /ul (Negative); Nitrite-Dipstick Negative (Negative); Occult Blood-Urine Negative /ul (Negative); Protein-Dipstick 15 mg/dl (Negative); Urine Bilirubin Dipstick Negative (Negative); Urine Clarity Clear (Clear); Urine Urobilinogen Normal (Normal)
[2024-07-07 12:00] LABS: Squamous Epithelial Cells - UA 0-5 SEEN /hpf (5-10); White Blood Cells 0-5 SEEN /hpf (0-5)
[2024-07-07 12:01] LABS: Red Blood Cells-Urine 0 SEEN /hpf (0-5)
[2024-07-07 13:04] LABS: Hemoglobin A1c 5.1 % (<=5.6)
[2024-07-07 13:21] LABS: ALB/GLOB Ratio 1.8 RATIO (0.9-2.4); AST(SGOT) 19 U/L (<=31); Alanine Aminotransfer ALT/SGPT 12 U/L (<=34); Albumin, Serum 4.2 g/dL (3.5-5.0); Alkaline Phosphatase 77 U/L (35-104); Anion Gap 10 (5-15); BUN 19 mg/dL (4-19); BUN/Creat Ratio 17.6 RATIO (10-20); Calcium,Total 10.3 mg/dL (7.6-11.0); Carbon Dioxide 24.9 mmol/L (21.0-32.0); Chloride 109 mmol/L (98-108); Cholesterol 174 mg/dL (<=200); Creatinine, Serum 1.07 mg/dL (0.70-1.20); EST Glomerular Filtration Rate 60 (>60); Globulin 2.3 g/dL (2.2-4.2); Glucose 116 mg/dL (70-99); High Density Lipoprotein 55 mg/dL; Low Density Lipoprotein Calc. 107 mg/dL; Potassium 5.1 mmol/L (3.3-5.1); Protein, Total 6.4 g/dL (5.9-8.4); Sodium Level 143 mmol/L (133-145); Total Bilirubin 0.37 mg/dL (0.00-1.30); Triglycerides 58 mg/dL; Very Low Density Lipoprotein 12 mg/dL (5-40); Vitamin B12 398 pg/mL (180-914); Vitamin D,25 Hydroxy 71.4 ng/mL (30-100); cholesterol:hdl ratio screen 3.15
[2024-07-07 17:44] LABS: Microalbumin,Random Urine < 12.0 mg/L (NO RANGE EST.); Microalbumin:Creatinine Ratio UNABLE TO CALCULATE mg/g CRE
== END | disposition home or self-care (01) ==
LOC: LAB 10:44
PROVIDERS: PCP Internal Medicine; Referring Provider Internal Medicine; Visit Provider Internal Medicine
DX: Z78.0 Asymptomatic menopausal state (principal); E66.9 Obesity, unspecified; E53.8 Deficiency of other specified B group vitamins; R73.01 Impaired fasting glucose
CPT/HCPCS: 36415; 80053; 80061; 81001; 82043; 82306; 82570; 82607; 83036; 84443

== ENCOUNTER → 2024-12-14 | Outpatient (CLI) | payer SELFPAY ==
--- NOTE | 2024-12-14 15:15 | CT_ITS ---
PROCEDURE: LIMITED CHEST CT CARDIAC ONLY 12/14/2024 REASON FOR EXAM: HPTN TECHNIQUE: Chest CT without contrast. Coronal and Sagittal reconstruction series were not provided. One or more dose reduction techniques were used (e.g., Automated exposure control, adjustment of the mA and/or kV according to patient size, use of iterative reconstruction technique RADIATION DOSE SUMMARY: CTDlvol: 12.19 mGy DLP: 243.79 mGycm COMPARISON: Chest radiograph dated 03/21/2019 FINDINGS: Hardware: None Lymph nodes: No lymphadenopathy Heart and Vasculature: Normal-size heart. Slight ectasia of the ascending aorta measuring 3.8 cm. Mild atherosclerosis. Descending aorta is of normal caliber. Coronary Artery Calcifications: No visible coronary arterial calcifications identified Lungs and Airways: Mild emphysematous changes. Patent airway. No suspicious pulmonary nodule or focal consolidation. Pleura: No effusion. No pneumothorax Upper Abdomen: Multiple hypodense lesions scattered through the liver statistically likely to be benign. These may reflect small cysts or hemangioma. Correlation with MRI with contrast is recommended. Mild splenomegaly. Atrophic right kidney. Bones: CT/Limited Chest CT Cardiac Only IMPRESSION: Coronary artery calcification (CAC) is is absent. Mild emphysematous changes. No suspicious pulmonary nodule or mass. Splenomegaly. Multiple hypodense lesions in the liver remain incompletely characterized. Fur ther evaluation with contrast-enhanced MRI is recommended. Atrophic right kidney. Ectasia of the ascending aorta. Reading Location: [facility]
--- NOTE | 2024-12-26 18:40 | CA.SCORE ---
Calcium Scoring Date of Study:: 12/14/24 Indications Indications: HTN Coronary Calcium Scoring: High-resolution Computed Tomographic imaging of the chest was performed on [ 12/14/24], with particular attention paid to the coronary arteries. Images from the examination were analyzed for the presence and extent of coronary artery calcification , using coronary calcium quantification software. The patient tolerated the procedure well and there were no complications. The results of the coronary calcification analysis are provided below. Findings Coronary Artery Left Main (LM): 0 Left Anterior Descending (LAD): 0 Left Circumflex (LCX): 0 Right Coronary Artery (RCA): 0 Total Agatston Score: 0 Percentile Rankin% Calcium Scoring Interpretation: Different methods to categorize the overall amount of coronary plaque. Overall amount CAC SIS Visual of coronary plaque P1 Mild -100 <2 1-2 vessels with mild amount of plaque P2 Moderate 101-300 3-4 1-2 vessels with moderate amount, 3 vessels with mild amount of plaque P3 Severe 301-999 5-7 3 vessels with moderate amount, 1 vessel with severe amount of plaque P4 Extensive >1000 >8 2-3 vessels with severe amount of plaque Conclusion: No atherosclerotic plaquing noted
== END | disposition home or self-care (01) ==
PROVIDERS: PCP Internal Medicine; Referring Provider Internal Medicine; Visit Provider Internal Medicine
DX: I10 Essential (primary) hypertension (principal)
CPT/HCPCS: 75571; 76380

== ENCOUNTER → 2024-12-15 | Outpatient (CLI) | payer OTHER, SELFPAY ==
--- OUTSIDE RECORDS SUMMARY | 2024-12-15 08:32 | XMS RPT_ITS | CCD ---
Author Organization [facility] Care Team Providers Care Community Product Specialist Name Role Phone Renetta Angulo Unavailable Ted Phillips Unavailable Alfonso Soni Unavailable Jamaal Duron Unavailable Brodie Pal Unavailable Celi Prieto Unavailable [phone] Anabela Rubalcava Unavailable Reny Bird Unavailable Unavailable Unavailable Unavailable Renetta Angulo Unavailable Ted Phillips Unavailable Alfonso Soni Unavailable Jamaal Duron Unavailable Brodie Pal Unavailable Celi Prieto Unavailable Anabela Rubalcava Unavailable Haley Pineda Unavailable Unavailable Reny Bird Unavailable Unavailable Eleanor Gregory Unavailable Unavailable Unavailable Ki Sethi Unavailable Juan Middleton Unavailable Unavailable Lyndsay Parry Unavailable [phone] Georgie Liz Unavailable Unavailable Reny Bird Unavailable Unavailable Juan Middleton Unavailable Unavailable Isabell Acosta Unavailable Unavailable [facility], [facility] Unavailable Bijal Masterson Unavailable Unavailable Emilia Gates Unavailable Unavailable Reny Longo Unavailable Unavailable Renetta Angulo DO Unavailable Lyndsay Parry Unavailable [phone] Ted Phillips MD Unavailable [facility], He [facility] Unavailable Mira Brooks Unavailable Nae HUDSON, Alfonso N Unavailable Brianarosalba Jamaal Unavailable Dr. Ki Sethi Unavailable Dr. Brodie Pal Unavailable Celi Prieto Unavailable [phone] Anabela Rubalcava Unavailable Ingrid Sandoval MA Unavailable Unavailable Marge PAUL, Reny Unavailable Unavailable Karla HOT BOX OPERATOR, Isabell Unavailable Unavailable Gravius BUTTON RECLAIMER, Bijal Unavailable Unavailable Haley Pineda Unavailable Unavailable Cross HOT BOX OPERATOR, Emilia Unavailable Unavailable Unavailable Unavailable Dr. Renetta Angulo Primary Care Provider Dr. Renetta Angulo Referring Provider Akhil CALI, VIRAJ Herrera Attending Provider [phone] Lexa Barbosa Attending Provider Dr. Joe Sharma Attending Provider [phone] Renetta Angulo DO Unavailable [place] BUTTON RECLAIMER, Kayela Unavailable Unavailable Bridget Diaz Unavailable Amelie Melissa MA Unavailable Unavailable Renetta Angulo DO Attending Unavailable Beatriz Maria MD Referring Unavailable Renetta Angulo DO Consulting Unavailable Renetta Angulo DO Primary Care Provider PARRISH AZEVEDO Referring Unavailable RENETTA ANGULO Primary Care Unavailab RENETTA Issa Primary Care Unavailab abdelrahman [place] HOT BOX OPERATOR, Kevin Unavailable Unavailable YOBANI DREW Attending Unavailable Renetta Angulo DO Primary Care Provider Dr. Renetta Angulo DO Primary Care Provider Dr. Renetta Angulo DO Attending Provider Dr. Renetta Angulo DO Referring Provider [phone] Dr. Renetta Angulo DO Primary Care Provider [phone] Cecilia PIERSON, Dr. Meyers Attending Provider Julissa NGUYỄN, Dr. Jackson Referring Provider [phone] Raymundo Ash Attending Provider [phone] Renetta Angulo Primary Care Unavailable Raymundo Ivan Attending Unavailable Julissa, Renetta Referring Unavailable Julissa, Renetta Attending Unavailable Julissa, Renetta Primary Care Unavailable Julissa, Renetta Referring Unavailable Julissa, Renetta Attending Unavailable Julissa, Renetta Primary Care Unavailable JulissaRenetta hardin Referring Unavailable Allergies Allergy Classification Reported Allergen(s) Allergy Type Date of Onset Reaction(s) Facility (20 sources) ampicillin; Translations: [Ampicillin *PENICILLINS*] Drug Allergy 6 [facility] Work Phone: (20 sources) cefadroxil; Translations: [Duricef *CEPHALOSPORINS*] Drug Allergy 6 [facility] Work Phone: (20 sources) meperidine; Translations: [Demerol *ANALGESICS - OPIOID*] Drug Allergy [facility] Work Phone: (20 sources) rofecoxib; Translations: [Vioxx *ANALGESICS - ANTI-INFLAMMATORY *] Drug Allergy 6 Other [facility] Work Phone: (15 sources) Acetaminophen; Translations: [ACETAMINOPHEN] Drug Allergy 6 Rash [facility] (12 sources) Cefadroxil; Translations: [cefadroxil hydrate] Drug Allergy 2 Unknown [facility] (12 sources) Meperidine; Translations: [meperidine HCl] Drug Allergy 2 Nausea [facility] (12 sources) Penicillins; Translations: [Penicillins] Allergy to substance 2 Hives [facility] (16 sources) zolpidem; Translations: [ZOLPIDEM TARTRATE] Drug Allergy 0 Swelling [facility] (1 source) Allergy to drug (finding) [facility]; [facility] Work Phone: (1 source) Allergy to drug (finding) [facility]; [facility] Work Phone: (1 source) Allergy to drug (finding) [facility]; [facility] Work Phone: (1 source) Allergy to drug (finding) [facility]; [facility] Work Phone: (1 source) Allergy to drug (finding) [facility]; [facility] Work Phone: (1 source) Allergy to drug (finding) [facility]; [facility] Work Phone: (1 source) Allergy to drug (finding) [facility]; [facility] Work Phone: (1 source) Allergy to drug (finding) [facility]; [facility] Work Phone: (1 source) Allergy to drug (finding) [facility]; [facility] Work Phone: (4 sources) Meperidine; Translations: [MEPERIDINE (PF)] Drug Allergy [address] [facility] Work Phone: (1 source) Ampicillin; Translations: [AMPICILLIN] Drug Allergy 6 [facility] Repository (1 source) Cefadroxil; Translations: [CEFADROXIL] Drug Allergy 6 [facility] Repository (2 sources) rofecoxib; Translations: [ROFECOXIB] Drug Allergy 6 [facility] Repository (1 source) Allergy to drug (finding) [facility]; [facility] Work Phone: (1 source) Allergy to drug (finding) [facility]; [facility] Work Phone: (1 source) Allergy to drug (finding) [facility]; [facility] Work Phone: (1 source) Acetaminophen Drug Allergy [address] [place] [address] Repository Medications Current Medications Medication Drug Class(es) Dates Sig (Normalized) Sig (Original) [id number] 200 actuat albuterol 0.09 mg/actuat metered dose inhaler (20 sources) beta2-Adrenergic Agonist Start: 12-13-2022 take 2 puff(s) by inhalation every six hours as needed for wheezing albuterol HFA (PROVENTIL HFA, VENTOLIN HFA) 90 mcg/actuation inhaler Indications: Acute cough Inhale 2 Puffs as instructed every 6 hours as needed for wheezing/shortnes s of breath. 1 Each 12/13/2022 Active Start: 06-16-2018 End: 04-12-2019 Start: 06-16-2018 End: 04-12-2019 take 2 puff(s) by inhalation three times daily as needed ProAir RespiClick 108 (90 Base) MCG/ACT Inhalation Aerosol Powder Breath Activated 2 (two) Puff Puff tid prn for 0 days Quantity: 1 {Inhaler} Refills: 0 Ordered: 12-Apr-2019 Isabell Acosta LPN Start : 16-Jun-2018 End : 12-Apr-2019 Inactive Comment on above: Inhale 2 Puffs as in structed every 6 hours as needed for wheezing/shortness of breath. atenolol 25 mg oral tablet (20 sources) beta-Adrenergic Joselin Start: 6 take 1 tablet by mouth once daily Atenolol 25 MG tablet Active 25 mg PO DAILY June 19, 2014 12:00am Comment on above: Mail order. Take one(1) tablet d aily. Dextromethorphan-Bu propion (Auvelity) 45-105 mg tablet, IR and ER, biphasic (1 source) Start: 5 Dextromethorphan -Bupropion (Auvelity) 45-105 mg tablet, IR and ER, biphasic Active 1 {tbl} PO EVERY MORNING November 07, 2024 12:00am esketamine (3 sources) Start: 3 SPRAVATO 84 mg (28 mg x 3) nasal spray 12/06/2022 Active Start: 12-06-2022 SPRAVATO 84 mg (28 mg x 3) nasal spray 24 hr guanFACINE 1 mg extended release oral tablet (20 sources) Central alpha-2 Adrenergic Agonist Start: 11-07-2024 take 1 tablet by mouth once daily Guanfacine 1 mg tablet extended release 24 hr Active 1 mg PO daily November 07, 2024 12:00am Start: 02-16-2019 End: 12-04-2019 take 1 tablet by mouth every twenty-four hours at bedtime Guanfacine 2 MG tablet extended release 24 hr Discontinued 2 mg PO AT BEDTIME February 16, 2019 1:00am December 04, 2019 3:34pm End: 04-12-2019 hydroCHLOROthiazide 25 mg oral tablet (3 sources) Thiazide Diuretic Start: 12-01-2022 take 1 tablet by mouth once daily in the morning hydroCHLOROthiazide 25 mg tablet TAKE 1 TABLET BY MOUTH EVERY DAY IN THE MORNING FOR 30 DAYS 12/01/2022 Active Comment on above: TAKE 1 TABLET BY ANTONY TH EVERY DAY IN THE MORNING FOR 30 DAYS Inhalational Spacing Device (1 source) Start: 12-13-2022 End: 12-13-2022 Inhalational Spacing Device 1 Device one time only for 1 dose. 1 Each 0 12/13/2022 12/13/2022 Active Comment on above: 1 Device one time on ly for 1 dose. melatonin 3 mg oral tablet (3 sources) take 3 mg by mouth once daily at bedtime melatonin 3 mg Take 3 mg by mouth daily at bedtime. Active Comment on above: Take 3 mg by mouth d aily at bedtime. evening dosing 24 hr methylphenidate hydrochloride 20 mg extended release oral capsule (7 sources) Central Nervous System Stimulant Start: 11-07-2024 take 1 capsule by mouth once daily in the evening Methylphenidate Hcl (Jornay Pm) 20 mg capsule,del rel,ext rel sprink Active 20 mg PO EVERY EVENING 0 November 07, 2024 12:00am Start: 11-30-2022 take 1 tablet by antony th once daily in the morning methylphenidate ER 18 mg biphasic tablet Take 18 mg by mouth every morning. 11/30/2022 Active Comment on above: Take 18 mg by mouth every morning. predniSONE 20 mg oral tablet (20 sources) Corticosteroid Start: take 3 tablets by mouth once daily, then take 2 tablets by mouth once daily, then take 1 tablet by mouth once daily Prednisone 20 mg tablet Active 20 mg PO As Directed 30 November 07, 2024 12:00am 3 tabs once daily x 5 days then 2 tabs once daily x 5 days then 1 tab once daily x 5 days Start: 12-13-2022 End: 12-18-2022 take 2 tablets by mouth once daily predniSONE (DELTASONE) 20 mg tablet Indications: Acute cough Take 2 tablets by mouth once daily for 5 days. 10 tablet 12/13/2022 12/18/2022 Start: 12-06-2014 End: 12-21-2014 Start: 12-06-2014 End: 12-21-2014 take 2 tablets by mouth once daily, then take 1 tablet by mouth once daily, then take 0.5 tablet by mouth once daily PREDNISONE, 20MG (Oral Tablet) 1 (one) Tablet uad for 15 days Refills: 0 Ordered: 06-Dec-2014 Candace PIERSON, Beatriz Feliz Start : 06-Dec-2014 End : 21-Dec-2014 Inactive Comments: 2 a d for 5 d, 1 a d for 5d, 1/2 a d for 5 d Start: 09-24-2009 End: 10-01-2009 Start: 09-24-2009 End: 10-01-2009 take 3 tablets by mouth once daily PREDNISONE, 10MG (Oral Tablet) 3 (three) Tablet daily for 7 days Quantity: 21 {Tablet} Refills: 0 Ordered: 24-Nov-2009 Eleanor Gregory CNP Start : 24-Sep-2009 End : 01-Oct-2009 Inactive Comment on above: 2 a d for 5 d, 1 a d for 5d, 1/2 a d for 5 d Take 2 tablets by mo ut once daily for 5 days. Vibegron (1 source) Start: 11-07-2024 take 1 tablet by mouth once daily Vibegron (Gemtesa) 75 mg tablet Active 75 mg PO daily November 07, 2024 12:00am vibegron (GEMTESA) 75 mg tablet (3 sources) take 1 tablet by mouth once daily vibegron (GEMTESA) 75 mg tablet 1 tablet Orally Once a day for 30 day(s) Active take 1 tablet by mouth once enmanuel y vibegron (GEMTESA) 75 mg tablet 1 tablet Orally Once a day for 30 day(s) 0 Active Comment on above: 1 tablet Orally Once a day for 30 day(s) Completed/Discontinued Medications Medication Drug Class(es) Dates Sig (Normalized) Sig (Original) acyclovir 400 mg oral tablet (20 sources) Herpesvirus Nucleoside Analog DNA Polymerase Inhibitor, Herpes Simplex Virus Nucleoside Analog DNA Polymerase Inhibitor, Herpes Zoster Virus Nucleoside Analog DNA Polymerase Inhibitor Start: 04-05-2019 End: 11-07-2024 Acyclovir 400 mg tablet Discontinued PO December 04, 2019 12:00am November 07, 2024 8:44am Start: 04-20-2018 take 1 tablet by antony th once daily Acyclovir 400 MG Oral Tablet 1 Tablet qd for 90 days Quantity: 90 {Tablet} Refills: 3 Ordered: 20-Apr-2018 Renetta Angulo DO, DO, Kathleen Start : 20-Apr-2018 Active Comments: Mail order. Start: 05-06-2017 take 1 tablet by antony th once daily Acyclovir 400 MG Oral Tablet 1 Tablet qd for 90 days Quantity: 90 {Tablet} Refills: 3 Ordered: 06-May-2017 Renetta Angulo DO, DO, Kathleen Start : 06-May-2017 Active End: 05-16-2007 End: 05-16-2007 ZOVIRAX, 1000MG (Intravenous Solution Reconstituted) Unsure As needed for 0 days Refills: 0 Ordered: 02-Jul-2008 Maricarmen Bethea End : 16-May-2007 Discontinued Comments: Medication taken as needed. End: 05-16-2007 ZOVIRAX, 1000MG (Intravenous Solution Reconstituted) Unsure As needed for 0 days Refills: 0 Ordered: 02-Jul-2008 Maricarmen Bethea End : 16-May-2007 Discontinued Comments: Medication taken as needed. Comment on above: Medication taken as needed. Mail order. azithromycin 500 mg oral tab let (20 sources) Macrolide Antimicrobial Start: 12-20-2022 Start: 06-27-2006 End: 04-24-2007 Start: 06-27-2006 End: 04-24-2007 ZITHROMAX Z-RADHA, 250MG (Oral Tablet) 1 Tablet as directed for 0 days Refills: 0 Ordered: 27-Jun-2006 Maricarmen Bethea Start : 27-Jun-2006 End : 24-Apr-2007 Discontinued benzonatate 100 mg oral capsule (20 sources) Non-narcotic Antitussive Start: 12-13-2022 End: 12-20-2022 take 1 capsule by mouth every eight hours as needed for cough and cough benzonatate (TESSALON PERLES) 100 mg capsule Indications: Acute cough Take 1 capsule by mouth three times daily as needed for up to 7 days. 21 capsule 12/13/2022 12/20/2022 Start: 06-22-2018 End: 06-29-2018 Comment on above: Take [address] [facility] three times daily as needed for up to 7 days. brexpiprazole 1 mg oral tablet (20 sources) Atypical Antipsychotic Start: 03-26-2021 End: 10-07-2021 Brexpiprazole (Rexulti) 1 mg tablet Discontinued NMA PO March 26, 2021 1:00am October 07, 2021 11:14am 24 hr buPROPion hydrochlorid e 150 mg extended release oral tablet (20 sources) Aminoketone Start: 02-13-2013 End: 09-25-2013 Comment on above: Mail order. busPIRone hydrochloride 15 m g oral tablet (20 sources) Start: 07-20-2017 End: 06-16-2018 take 1 tablet by mouth three raymundo es daily busPIRone (BUSPAR) 5 mg tablet 1 tablet Orally three times a day Active Comment on above: Mail order. 1 tablet Orally thre e times a day cetirizine hydrochloride 5 m g oral tablet (20 sources) Histamine-1 Receptor Antagonist End: 06-29-2011 Comment on above: This order discontin ued per [facility]. citalopram 20 mg oral tablet (20 sources) Serotonin Reuptake Inhibitor Start: 01-23-2013 End: 01-23-2013 clarithromycin 500 mg oral tablet (20 sources) Macrolide Antimicrobial Start: 04-22-2014 End: 05-06-2014 Start: 04-22-2014 End: 05-06-2014 take 2 tablets by mouth once daily BIAXIN XL PAC, 500MG (Oral Tablet Extended Release 24 Hour) 2 (two) Tablet ER 24HR daily for 14 days Quantity: 28 {Tablet} Refills: 0 Ordered: 22-Apr-2014 Beatriz Maria MD Start : 22-Apr-2014 End : 06-May-2014 Inactive Start: 04-22-2014 End: 05-06-2014 take 2 tablets by mouth once daily BIAXIN XL PAC, 500MG (Oral Tablet Extended Release 24 Hour) 2 (two) Tablet ER 24HR daily for 14 days Quantity: 28 {Tablet} Refills: 0 Ordered: 22-Apr-2014 Beatriz Maria MD Start : 22-Apr-2014 End : 06-May-2014 Inactive Start: 05-13-2009 End: 07-06-2018 clonazePAM 0.5 mg oral table t (20 sources) Benzodiazepine Start: 01-23-2013 End: 09-25-2013 Comment on above: thirty Deplin (algal oil) (12 sources) Start: 04-12-2013 End: 09-25-2013 Deplin 15 (7 sources) Start: 04-12-2013 End: 09-25-2013 Start: 04-12-2013 End: 09-25-2013 take 1 capsule by mouth once daily DEPLIN 15, 15-90.314MG (Oral Capsule) 1 Capsule daily for 0 days Quantity: 90 {Capsule} Refills: 3 Ordered: 25-Sep-2013 Maddie Cannon Start : 12-Apr-2013 End : 25-Sep-2013 Inactive DEPLIN 15, 15-90.314MG (Oral Capsule) (20 sources) Start: 04-12-2013 End: 09-25-2013 take 1 capsule by mouth once daily DEPLIN 15, 15-90.314MG (Oral Capsule) 1 Capsule daily for 0 days Quantity: 90 {Capsule} Refills: 3 Ordered: 25-Sep-2013 Maddie Cannon CMA Start : 12-Apr-2013 End : 25-Sep-2013 Inactive Start: 04-12-2013 End: 09-25-2013 take 1 capsule by mouth once daily DEPLIN 15, 15-90.314MG (Oral Capsule) 1 Capsule daily for 0 days Quantity: 90 {Capsule} Refills: 3 Ordered: 25-Sep-2013 Maddie Cannon Start : 12-Apr-2013 End : 25-Sep-2013 Inactive desoximetasone 2.5 mg/ml top ical cream (20 sources) Corticosteroid Start: 09-24-2009 Start: 09-24-2009 TOPICORT, 0.25 % (External Cream) 1 Cream bid for 0 days Quantity: 1 {Cream} Refills: 0 Ordered: 09-Dec-2009 RAMIOR Pagan LPN Start : 24-Sep-2009 Inactive 12 hr dextromethorphan polistirex 6 mg/ml extended release suspension (20 sources) Uncompetitive T-ysjddz-S-aspartate Receptor Antagonist, Sigma-1 Agonist Start: 06-16-2018 End: 07-14-2018 Start: 06-16-2018 End: 07-14-2018 take 1 mL by mouth twice daily Delsym 30 MG/5ML Oral S uspension Extended Release 1 (one) Milliliter Milliliter bid for 0 days Quantity: 1 {Milliliter} Refills: 0 Ordered: 14-Jul-2018 Juan Farooq LPN Start : 16-Jun-2018 End : 14-Jul-2018 Inactive doxycycline hyclate 100 mg o ral capsule (20 sources) Tetracycline-class Drug Start: 02-08-2020 End: 03-31-2020 Start: 02-20-2016 End: 04-19-2016 take 1 capsule by mouth twice daily Doxycycline Hyclate 100 MG Oral Capsule 1 (one) Capsule bid for 0 days Quantity: 20 {Capsule} Refills: 0 Ordered: 19-Apr-2016 Reny Bird RN Start : 20-Feb-2016 End : 19-Apr-2016 Inactive DULoxetine 30 mg delayed release oral capsule (20 sources) Serotonin and Norepinephrine Reuptake Inhibitor Start: 01-25-2019 End: 12-04-2019 take 1 capsule by mouth once daily Duloxetine (Cymbalta) 30 mg capsule,delayed release(DR/EC) Discontinued 30 mg PO DAILY January 25, 2019 12:00am December 04, 2019 3:34pm Start: 01-23-2018 End: 06-16-2018 Start: 01-23-2018 End: 06-16-2018 escitalopram 20 mg oral tablet (20 sources) Serotonin Reuptake Inhibitor Start: 12-04-2019 End: 10-07-2021 Escitalopram Oxalate 20 mg tablet Discontinued mg PO December 04, 2019 12:00am October 07, 2021 11:14am Start: 12-04-2019 End: 10-07-2021 Escitalopram Oxalate Discont inued MG PO December 03, 2019 11:00pm October 07, 2021 10:14am Start: 07-20-2017 End: 06-16-2018 take 1.5 tablets by mouth once daily Escitalopram Oxalate 20 MG Oral Tablet 1.5 Tablet daily for 0 days Quantity: 135 {Tablet} Refills: 3 Ordered: 16-Jun-2018 Haley Pineda Start : 20-Jul-2017 End : 16-Jun-2018 Discontinued Comments: Mail order. new dose Start: 06-19-2014 End: 01-25-2019 take 1 tablet by mouth once daily Escitalopram Oxalate 20 MG tablet Discontinued 20 mg PO DAILY June 19, 2014 12:00am January 25, 2019 2:16pm Start: 04-24-2007 End: 03-28-2008 take 1 tablet by mouth once daily LEXAPRO, 20MG (Oral Tablet) Tablet qd for 0 days Quantity: 90 {Tablet} Refills: 3 Ordered: 24-Apr-2007 Maricarmen Bethea Start : 24-Apr-2007 End : 28-Mar-2008 Inactive Comment on above: new dose Mail order. new dose Take 20 mg by mouth once daily. esomeprazole 20 mg / naproxe n 500 mg delayed release oral tablet (20 sources) Proton Pump Inhibitor, Nonsteroidal Anti-inflammatory Drug Start: 09-01-2010 End: 12-21-2010 estradiol 0.1 mg/ml vaginal cream (20 sources) Estrogen Start: 02-04-2021 Start: 11-21-2017 Estrace 0.1 MG /GM Vaginal Cream apply to vaginal vault and lab Gram qhs for 2weeks then mon/ wed/ frid for 0 days Quantity: 15 {Gram} Refills: 1 Ordered: 21-Nov-2017 Haley Pineda Start : 21-Nov-2017 Active eszopiclone 2 mg oral tablet (20 sources) Start: 11-26-2008 famotidine 20 mg oral tablet (20 sources) Histamine-2 Receptor Antagonist Start: 12-06-2014 End: 12-22-2015 fluticasone propionate 0.05 mg/actuat metered dose nasal spray (20 sources) Corticosteroid Start: 05-25-2022 Start: 05-15-2021 Start: 05-05-2020 Start: 05-05-2020 take 2 spray(s) nasa l route once daily as needed Fluticasone Propionate 50 MCG/ACT Nasal Suspension 2 (two) Sprays each nostril qd prn for 0 days Quantity: 3 {Canister} Refills: 3 Ordered: 05-May-2020 Eleanor Gregory CNP Start : 05-May-2020 Active Comments: Mail order. Start: 02-18-2020 take 2 spray(s) nasa l route once daily as needed Fluticasone Propionate 50 MCG/ACT Nasal Suspension 2 (two) Sprays each nostril qd prn for 0 days Quantity: 3 {Canister} Refills: 0 Ordered: 18-Feb-2020 Eleanor Gregory CNP Start : 18-Feb-2020 Active Comments: Mail order. Start: 11-22-2019 take 2 spray(s) nasa l route once daily as needed Fluticasone Propionate 50 MCG/ACT Nasal Suspension 2 (two) Sprays each nostril qd prn for 0 days Quantity: 3 {Canister} Refills: 0 Ordered: 22-Nov-2019 Eleanor Gregory CNP Start : 22-Nov-2019 Active Comments: Mail order. Start: 09-03-2019 take 2 spray(s) nasa l route once daily as needed Fluticasone Propionate 50 MCG/ACT Nasal Suspension 2 (two) Sprays each nostril qd prn for 0 days Quantity: 3 {Canister} Refills: 0 Ordered: 03-Sep-2019 Eleanor Gregory CNP Start : 03-Sep-2019 Active Comments: Mail order. Start: 12-08-2018 take 2 spray(s) nasa l route once daily as needed Fluticasone Propionate 50 MCG/ACT Nasal Suspension 2 (two) Sprays each nostril qd prn for 0 days Quantity: 3 {Canister} Refills: 0 Ordered: 08-Dec-2018 Eleanor Gregory CNP Start : 08-Dec-2018 Active Comments: Mail order. Start: 07-17-2018 take 2 spray(s) nasa l route once daily as needed Fluticasone Propionate 50 MCG/ACT Nasal Suspension 2 (two) Sprays each nostril qd prn for 0 days Quantity: 3 {Canister} Refills: 0 Ordered: 17-Jul-2018 Eleanor Gregory CNP Start : 17-Jul-2018 Active Comments: Mail order. Start: 06-19-2014 take 2 spray(s) nasa l route once daily as needed Fluticasone Propionate 50 MCG/ACT Nasal Suspension 2 (two) Sprays each nostril qd prn for 0 days Quantity: 3 {Canister} Refills: 0 Ordered: 16-Jun-2018 Eleanor Gregory CNP Start : 16-Jun-2018 Active Start: 06-19-2014 Fluticasone Pr opionate Active 2 SPRAY NASAL DAILY June 18, 2014 11:00pm Start: 07-08-2009 take 2 puff(s) nasal route onc e fluticasone propionate(FLONASE 50 MCG/ACTUATION NASAL SPRAY) Two puffs per nostril daily. 0 07/08/2009 Active Comment on above: Mail order. Two puffs per nostri l daily. hydroCHLOROthiazide 25 mg / lisinopril 20 mg oral tablet (20 sources) Thiazide Diuretic, Angiotensin Converting Enzyme Inhibitor Start: 04-01-2022 Start: 10-31-2020 Start: 11-19-2019 take 1 tablet by antony th once daily Lisinopril-hydroCHLOROthiazide 20-25 MG Oral Tablet 1 (one) Tablet qd for 90 days Quantity: 90 {Tablet} Refills: 3 Ordered: 19-Nov-2019 Renetta Angulo DO, DO, Kathleen Start : 19-Nov-2019 Active Comments: Mail order. per health insurance has to be this dose Start: 11-06-2018 take 1 tablet by antony th once daily Lisinopril-hydroCHLOROthiazide 20-25 MG Oral Tablet 1 (one) Tablet qd for 90 days Quantity: 180 {Tablet} Refills: 3 Ordered: 06-Nov-2018 Renetta Angulo DO, DO, Kathleen Start : 06-Nov-2018 Active Comments: Mail order. per health insurance has to be this dose Start: 11-21-2017 take 1 tablet by antony th once daily Lisinopril-Hydrochlorothiazide 20-25 MG Oral Tablet 1 (one) Tablet qd for 90 days Quantity: 180 {Tablet} Refills: 3 Ordered: 21-Nov-2017 Renetta Angulo DO, DO, Kathleen Start : 21-Nov-2017 Active Comments: Mail order. per health insurance has to be this dose Comment on above: per health insurance has to be this dose Mail order. per [facility] insurance has to be this dose hydrocortisone 25 mg/ml topi danny cream (20 sources) Corticosteroid Start: 07-20-2017 End: 06-16-2018 levoFLOXacin 500 mg oral tab let (20 sources) Quinolone Antimicrobial Start: 06-16-2018 End: 06-23-2018 Start: 06-01-2011 End: 06-08-2011 take 1 tablet by mouth once daily LEVAQUIN, 500MG (Oral Tablet) 1 Tablet daily for 7 days Quantity: 7 {Tablet} Refills: 0 Ordered: 01-Jun-2011 Eleanor Gregory CNP Start : 01-Jun-2011 End : 08-Jun-2011 Inactive 24 hr levomilnacipran 40 mg extended release oral capsule (10 sources) Serotonin and Norepinephrine Reuptake Inhibitor Start: 10-07-2021 End: 11-07-2024 take 1 capsule by mouth once daily Levomilnacipran (Fetzima) 40 mg capsule,extended release 24 hr Discontinued 80 mg PO DAILY October 07, 2021 12:00am November 07, 2024 8:44am levonorgestrel 0.604184 mg/hr intrauterine system (20 sources) Progestin, Progestin-containin g Intrauterine Device lisinopril 20 mg oral tablet (11 sources) Angiotensin Converting Enzyme Inhibitor Start: 01-25-2019 End: 11-07-2024 take 1 tablet by mouth once daily Lisinopril 20 mg tablet Discontinued 20 mg PO DAILY January 25, 2019 12:00am November 07, 2024 8:44am loratadine 10 mg oral tablet (20 sources) Start: 12-06-2014 LORazepam 0.5 mg oral tablet (20 sources) Benzodiazepine Start: 04-18-2019 Start: 01-09-2018 LORazepam 0.5 MG Oral Tablet 1 Tablet 2-3 times a week prn anxiety for 0 days Quantity: 20 {Tablet} Refills: 0 Ordered: 09-Jan-2018 Renetta Angulo DO, DO, Kathleen Start : 09-Jan-2018 Active Comments: [id number] Start: 05-10-2008 End: 06-17-2011 Start: 05-10-2008 End: 06-17-2011 take 1 tablet by mouth once daily ATIVAN, 0.5MG (Oral Tablet) Tablet QD for 0 days Quantity: 30 {Tablet} Refills: 0 Ordered: 17-Jun-2011 RAMIRO Pagan LPN Start : 10-May-2008 End : 17-Jun-2011 Inactive End: 05-16-2007 End: 05-16-2007 LORAZEPAM, 2MG/ML (Oral Conc entrate) Unsure As needed for 0 days Refills: 0 Ordered: 02-Jul-2008 Maricarmen Bethea End : 16-May-2007 Discontinued Comments: Medication taken as needed. Comment on above: [id number] Medication taken as needed. meloxicam 15 mg oral tablet (20 sources) Nonsteroidal Anti-inflammatory Drug Start: 10-13-2018 End: 04-12-2019 metroNIDAZOLE 7.5 mg/ml topi danny cream (20 sources) Nitroimidazole Antimicrobial Start: 01-23-2013 End: 12-06-2014 Start: 01-23-2013 End: 12-06-2014 METRONIDAZOLE, 0.75% ([employer] Cream) 1 Cream bid to face for 0 days Quantity: 1 {Cream} Refills: 0 Ordered: 06-Dec-2014 RAMIRO Pagan LPN Start : 23-Jan-2013 End : 06-Dec-2014 Inactive minocycline 100 mg oral capsule (20 sources) Tetracycline-class Drug Start: 01-24-2013 End: 02-23-2013 Comment on above: Mail order. 24 hr mirabegron 50 mg extended release oral tablet (11 sources) beta3-Adrenergic Agonist Start: 03-26-2021 End: 11-07-2024 Mirabegron (Myrbetriq) 50 mg tablet extended release 24 hr Discontinued NMA PO March 26, 2021 1:00am November 07, 2024 8:45am modafinil 100 mg oral tablet (20 sources) Sympathomimetic-like Agent Start: 04-22-2014 End: 12-06-2014 Comment on above: thirty mometasone furoate 0.05 mg/actuat metered dose nasal spray (20 sources) Corticosteroid Start: 04-24-2007 End: 03-28-2008 Start: 04-24-2007 End: 03-28-2008 take 2 spray(s) nasal route once daily NASONEX, 50MCG/ACT (Nasal Suspension) 2 sprays eash nostril Suspension qd for 0 days Quantity: 1 {Suspension} Refills: 0 Ordered: 24-Apr-2007 Maricarmen Bethea Start : 24-Apr-2007 End : 28-Mar-2008 Inactive montelukast 10 mg oral tablet (20 sources) Leukotriene Receptor Antagonist Start: 05-10-2008 End: 11-26-2008 24 hr nitroglycerin 0.2 mg/hr transdermal system (11 sources) Nitrate Vasodilator Start: 03-26-2021 End: 10-07-2021 apply 0.2 mg transdermal route every hour, then apply 1 dose transdermal route every twenty-four hours Nitroglycerin (Nitro-Dur) 0.2 mg/hr patch 24 hour Discontinued 0 TD DAILY 30 0 March 26, 2021 1:00am October 07, 2021 11:15am apply 1/4 patch transdermal daily to area of tenderness on elbow. nystatin 100 unt/mg topical powder (20 sources) Polyene Antifungal Start: 06-04-2015 End: 04-19-2016 Start: 06-04-2015 End: 04-19-2016 Nyamyc [id number] UNIT/GM [employer] Powder apply liberally Powder Powder bid for 0 days Quantity: 1 {Container} Refills: 2 Ordered: 19-Apr-2016 Reny Bird RN Start : 04-Jun-2015 End : 19-Apr-2016 Inactive ondansetron 4 mg disintegrating oral tablet (11 sources) Serotonin-3 Receptor Antagonist Start: 03-21-2019 End: 12-04-2019 take 1 tablet by mouth every eight hours as needed for nausea Ondansetron 4 MG tablet Discontinued 4 mg PO EVERY 8 HOURS NEEDED as needed for Nausea March 21, 2019 1:00am December 04, 2019 3:34pm 12 hr orphenadrine citrate 100 mg extended release oral tablet (20 sources) Muscle Relaxant Start: 05-16-2007 End: 05-10-2008 Start: 05-16-2007 End: 05-10-2008 take 1 tablet by mouth once daily at bedtime NORFLEX, 100MG (Oral Tablet Extended Release 12 Hour) Tablet ER 12HR QHS / HS for 0 days Quantity: 30 {Tablet_ER_12HR} Refills: 1 Ordered: 16-May-2007 Maricarmen Bethea Start : 16-May-2007 End : 10-May-2008 Inactive oxyCODONE hydrochloride 5 mg oral tablet (11 sources) Opioid Agonist Start: 02-21-2019 End: 02-26-2019 take 1 tablet by mouth every four hours as needed for pain Oxycodone 5 MG tablet Discontinued 5 mg PO EVERY 4 HOURS NEEDED as needed for Pain 20 5 0 February 21, 2019 February 25, 2019 1:00am February 26, 2019 1:08am Postoperative pain Other acute postprocedural pain 1-3 EVERY 4 HOURS NEEDED FOR PAIN oxymetazoline hydrochloride 10 mg/ml topical cream (20 sources) Rhofade 1 % Exte rnal Cream 1 qd (1 %) Active pantoprazole 40 mg delayed release oral tablet (20 sources) Proton Pump Inhibitor Start: 03-21-2019 End: 12-04-2019 take 1 tablet by mouth once daily Pantoprazole 40 MG tablet Discontinued 40 mg PO DAILY 20 March 21, 2019 1:00am December 04, 2019 3:35pm oxymetazoline hydrochloride 10 mg/ml topical cream (2 sources) Rhofade 1 % External Cream 1 qd (1 %) Active Rhofade 1 % Exte rnal Cream 1 qd (1 %) Active rOPINIRole 0.25 mg oral tablet (20 sources) Nonergot Dopamine Agonist Start: 04-22-2014 End: 04-22-2014 sertraline 100 mg oral tablet (20 sources) Serotonin Reuptake Inhibitor Start: 01-25-2019 End: 12-04-2019 take 1 tablet by mouth once daily Sertraline (Zoloft) 100 mg tablet Discontinued 100 mg PO DAILY January 25, 2019 12:00am December 04, 2019 3:36pm solifenacin succinate 10 mg oral tablet (17 sources) Cholinergic Muscarinic Antagonist Start: 01-21-2021 sulfamethoxazole 800 mg / trimethoprim 160 mg oral tablet (17 sources) Dihydrofolate Reductase Inhibitor Antibacterial, Sulfonamide Antimicrobial Start: 12-22-2020 End: 12-29-2020 traZODone hydrochloride 50 mg oral tablet (20 sources) Serotonin Reuptake Inhibitor Start: 03-28-2008 End: 05-10-2008 Start: 03-28-2008 End: 05-10-2008 TRAZODONE HCL, 50MG (Oral Ta blet) Tablet uad for 0 days Quantity: 30 {Tablet} Refills: 6 Ordered: 28-Mar-2008 Maricarmen Bethea Start : 28-Mar-2008 End : 10-May-2008 Inactive Comments: use 1/2 at night for 5 days then 1 a day can go to 2 a day Comment on above: use 1/2 at night for 5 days then 1 a day can go to 2 a day triamcinolone acetonide 40 mg/ml injectable suspension (3 sources) Corticosteroid Start: 07-20-2021 End: 07-20-2021 Kenalog (triamcinolone acetonide) 40 mg/mL suspension for injection Discontinued 80 MG INTRAARTIC ONCE 2 July 20, 2021 12:53pm July 20, 2021 3:28pm Start: 08-21-2020 End: 08-21-2020 Kenalog (triamcinolone aceto nide) 40 mg/mL suspension for injection Discontinued 20 MG INTRAARTIC ONCE 0.5 August 21, 2020 8:06am August 21, 2020 8:34am Start: 12-04-2019 End: 12-04-2019 Kenalog (triamcinolone aceto nide) 40 mg/mL suspension for injection Discontinued 20 MG INTRAARTIC ONCE 0.5 December 04, 2019 3:28pm December 04, 2019 3:56pm valACYclovir (20 sources) Herpesvirus Nucleoside Analog DNA Polymerase Inhibitor, Herpes Simplex Virus Nucleoside Analog DNA Polymerase Inhibitor, Herpes Zoster Virus Nucleoside Analog DNA Polymerase Inhibitor Start: 06-19-2014 End: 08-21-2020 take 200 mg by mouth once daily Valtrex Discontinued 200 MG PO DAILY June 19, 2014 3:19pm August 21, 2020 8:16am Start: 06-19-2014 End: 08-21-2020 take 1 tablet by mouth once daily Valtrex tablet Discontinued 200 mg PO DAILY June 19, 2014 12:00am August 21, 2020 8:16am Start: 06-19-2014 End: 08-21-2020 take 200 mg by mouth once daily Valtrex Discontinued 2 00 MG PO DAILY June 18, 2014 11:00pm August 21, 2020 7:16am Start: 06-19-2014 End: 08-21-2020 take 200 mg by mouth once daily Valtrex Discontinued 2 00 MG PO DAILY June 19, 2014 12:00am August 21, 2020 8:16am Start: 03-14-2006 End: 07-25-2012 VALTREX 500 MG TAB Take one( 1) tablet daily. 0 03/14/2006 Active End: 05-16-2007 VALTREX, 500MG (Oral Tablet) for 0 days Refills: 0 Ordered: 02-Jul-2008 Maricarmen Bethea End : 16-May-2007 Discontinued Comment on above: per insurance [facility] request Take one(1) tablet d aily. vilazodone hydrochloride 40 mg oral tablet (20 sources) Start: 03-15-2013 End: 03-15-2013 vortioxetine 5 mg oral table t (20 sources) zolpidem tartrate 10 mg oral tablet (20 sources) gamma-Aminobutyric Acid-ergic Agonist Start: 07-02-2008 Comment on above: tounge swelling Problems Active Problems Problem Classification Problem Date Documented Date Episodic/Chronic Administrative/socia l admission (20 sources) Patient encounter status; Translations: [Nutritional counseling] 01-12-2021 Episodic Allergic reactions (20 sources) Dermatitis; Translations: [Contact dermatitis due to poison shruthi] Onset: 11-07-2024 Resolved: 10-18-2013 02-25-2015 Episodic Comment on above: perioral. try oral d oxy not help to derm Anxiety disorders (20 sources) Acute stress disorder; Translations: [Anxiety] 11-21-2017 Chronic Comment on above: switching to cymbalt a to see if hleps with pain -- told fibro yrs ago but dx not in chart--- going to do 90mg doing well Biliary tract disease (14 sources) Biliary colic; Translations: [Calculus of bile duct without cholangitis or cholecystitis without obstruction] Onset: 05-19-2016 04-23-2016 Episodic Chronic kidney disease (6 sources) Chronic kidney disease stage 3; Translations: [CHRONIC KIDNEY DISEASE, STAGE III (MODERATE) (Renamed from Stage 3 chronic kidney disease)] 12-20-2022 Chronic Chronic obstructive pulmonary disease and bronchiectasis (6 sources) Bronchitis; Translations: [Bronchitis] 12-20-2022 Episodic Diabetes mellitus without complication (20 sources) Impaired fasting glucose; Translations: [Impaired fasting glycaemia] 11-21-2017 Episodic E Codes: Fall (20 sources) Fall in home; Translations: [Fall in home, initial encounter] 01-12-2021 Episodic Esophageal disorders (20 sources) Gastroesophageal reflux disease; Translations: [GERD (gastroesophageal reflux disease)] 07-04-2019 Chronic Essential hypertension (20 sources) Benign essential hypertension; Translations: [Benign essential hypertension] Onset: 10-03-2015 01-23-2018 Chronic Comment on above: ekg - wch 03/29 Fever of unknown origin (20 sources) Fever; Translations: [Fever] 02-08-2020 Episodic Genitourinary congenital anomalies (3 sources) Congenital renal atrophy; Translations: [Renal hypoplasia, unspecified] Onset: 10-03-2015 10-03-2015 Chronic Headache, including migraine (20 sources) Headache; Translations: [Headache] Resolved: 04-22-2014 01-14-2015 Episodic Comment on above: wrote for massothera py Hemorrhoids (20 sources) External hemorrhoids; Translations: [External hemorrhoid] 11-21-2017 Episodic Immunizations and screening for infectious disease (20 sources) Need for prophylactic vaccination and inoculation against influenza; Translations: [Contact with and (suspected) exposure to other viral communicable diseases] 05-01-2020 Episodic Malaise and fatigue (20 sources) Fatigue; Translations: [Fatigue] Resolved: 04-19-2016 10-01-2016 Episodic Menstrual disorders (3 sources) Menorrhagia; Translations: [Excessive and frequent menstruation with regular cycle] Onset: 11-06-2012 11-06-2012 Chronic Mood disorders (20 sources) Depressive disorder; Translations: [Depressive disorder] Onset: 11-06-2012 11-21-2017 Chronic Mycoses (20 sources) Candidiasis of skin; Translations: [Yeast dermatitis] Resolved: 04-19-2016 10-01-2016 Episodic Neoplasms of unspecified nature or uncertain behavior (20 sources) Neoplasm of uncertain behavior of skin; Translations: [Neoplasm of uncertain behavior of skin] Resolved: 10-18-2013 10-18-2013 Episodic Other and unspecified benign neoplasm (20 sources) History of polyp of colon; Translations: [History of colon polyps] 11-21-2017 Episodic Comment on above: last scope 10/2017- j abour Other circulatory disease (20 sources) Respiratory tract congestion; Translations: [Head congestion] Resolved: 04-15-2022 05-01-2020 Episodic Other connective tissue disease (20 sources) Foot pain; Translations: [Foot pain] Resolved: 10-18-2013 10-18-2013 Episodic Comment on above: had bunionectomies i n past. sesmoid bones bother joint. will get back to umbrella mender Other connective tissue disease (20 sources) Plantar fasciitis; Translations: [Plantar fasciitis] Resolved: 04-22-2014 02-28-2015 Episodic Other connective tissue disease (20 sources) Muscle pain; Translations: [Myalgia] Resolved: 10-07-2008 03-21-2015 Episodic Comment on above: ? fibro. use friends traction cervical--wrote for tractionseee chiropactor help Other connective tissue disease (20 sources) Primary fibromyalgia syndrome; Translations: [Fibromyalgia] 01-23-2018 Episodic Other connective tissue disease (20 sources) Hand pain; Translations: [Pain of hand, unspecified laterality] Resolved: 10-18-2013 02-25-2015 Episodic Other connective tissue disease (20 sources) Heel pain; Translations: [Inflammatory pain of left heel] Resolved: 10-27-2017 10-27-2017 Episodic Other connective tissue disease (20 sources) Pain in right foot; Translations: [Foot pain, right] Resolved: 03-31-2020 03-31-2020 Episodic Other connective tissue disease (11 sources) Lateral epicondylitis of right humerus; Translations: [Lateral epicondylitis, right elbow] 08-21-2020 Episodic Other connective tissue disease (11 sources) Impingement syndrome of shoulder region; Translations: [Impingement syndrome of right shoulder] 07-20-2021 Episodic Other connective tissue disease (4 sources) Impingement syndrome of right shoulder; Translations: [Other affections of shoulder region, not elsewhere classified] Episodic Other connective tissue disease (5 sources) Adhesive capsulitis of shoulder; Translations: [Adhesive capsulitis of right shoulder] 10-07-2021 Episodic Other connective tissue disease (2 sources) Adhesive capsulitis of right shoulder; Translations: [Adhesive capsulitis of shoulder] Episodic Other connective tissue disease (20 sources) Pain in left arm; Translations: [Arm pain, left] Resolved: 12-20-2022 04-15-2022 Episodic Other connective tissue disease (4 sources) Adhesive capsulitis of right shoulder; Translations: [Adhesive capsulitis of right shoulder] 10-07-2021 Episodic Other diseases of kidney and ureters (20 sources) Acquired renal cystic disease; Translations: [Cyst, kidney, acquired] 11-21-2017 Episodic Comment on above: last imaging demonst ated that they shrunk Other diseases of kidney and ureters (20 sources) Renal impairment; Translations: [Renal insufficiency] 12-07-2021 Episodic Other diseases of kidney and ureters (1 source) Kidney disease; Translations: [Disorder of kidney and ureter, unspecified] 11-07-2024 Episodic Other female genital disorders (20 sources) Premenstrual tension syndromes; Translations: [Premenstrual tension syndrome] Chronic Other female genital disorders (20 sources) Premenstrual tension syndrome; Translations: [Premenstrual tension syndrome] 11-21-2017 Chronic Comment on above: stable Other female genital disorders (20 sources) Vaginal dryness; Translations: [Vaginal dryness] 11-21-2017 Episodic Comment on above: pt had ablation so d ont know based on cycles if in menopause Other hereditary and degenerative nervous system conditions (20 sources) Restless legs syndrome; Translations: [Restless legs] Chronic Other hereditary and degenerative nervous system conditions (20 sources) Restless legs; Translations: [RLS (restless legs syndrome)] 11-21-2017 Chronic Other hereditary and degenerative nervous system conditions (20 sources) Serotonin syndrome; Translations: [Serotonin syndrome] 07-04-2019 Chronic Other inflammatory condition of skin (20 sources) Rosacea; Translations: [Dermatitis, perioral] Resolved: 10-18-2013 10-18-2013 Chronic Other inflammatory condition of skin (20 sources) Erythema multiforme; Translations: [Erythema multiforme] Resolved: 12-22-2015 10-01-2016 Episodic Comment on above: think related to annemarie khanna no viral signs and symptoms no catie boo. worsen since yesterday. she takes advill all time tylenol is what is new. not sure that food Other lower respiratory disease (20 sources) Dyspnea; Translations: [SOB (shortness of breath)] Resolved: 11-26-2019 07-14-2018 Episodic Other lower respiratory disease (20 sources) Cough; Translations: [Cough] Resolved: 11-24-2009 07-25-2012 Episodic Other nervous system disorders (20 sources) Paresthesia; Translations: [Paresthesia] 10-13-2018 Episodic Other non-traumatic joint disorders (20 sources) Pain in wrist; Translations: [Acute pain of right wrist] Resolved: 10-01-2016 10-01-2016 Episodic Other non-traumatic joint disorders (20 sources) Bilateral wrist pain; Translations: [Bilateral wrist pain] Resolved: 11-26-2019 02-08-2020 Episodic Other non-traumatic joint disorders (11 sources) Shoulder pain; Translations: [Pain in unspecified shoulder] 07-20-2021 Episodic Other non-traumatic joint disorders (4 sources) Pain in unspecified shoulder; Translations: [Pain in joint, shoulder region] Episodic Other nutritional; endocrine; and metabolic disorders (20 sources) Obesity, unspecified; Translations: [Obesity] 11-21-2017 Chronic Other nutritional; endocrine; and metabolic disorders (20 sources) Body mass index 30+ - obesity; Translations: [BMI 33.0-33.9,adult] Resolved: 11-18-2017 11-21-2017 Chronic Other nutritional; endocrine; and metabolic disorders (20 sources) Body mass index 40+ - severely obese; Translations: [BMI 40.0-44.9, adult] 11-21-2017 Chronic Other nutritional; endocrine; and metabolic disorders (20 sources) Obesity; Translations: [Obesity,unspecified (278.00)] Chronic Other skin disorders (20 sources) Excessive sweating; Translations: [Diaphoresis] Resolved: 04-22-2014 04-22-2014 Episodic Other skin disorders (20 sources) Skin lesion; Translations: [Skin lesion of chest wall] Resolved: 04-19-2016 10-01-2016 Episodic Other skin disorders (20 sources) Eruption; Translations: [Rash] Resolved: 11-21-2017 11-21-2017 Episodic Comment on above: cutaneous yeast -- c ont to use fungal powder and cotton to breathe --do not put skin on skin Other skin disorders (20 sources) Keratosis; Translations: [Keratosis] 07-14-2018 Episodic Other skin disorders (20 sources) Lentigo; Translations: [Lentiginosis] 11-26-2019 Episodic Comment on above: on lips - sees dr lala howard she will ask him if can laser them or how else to remove Other upper respiratory disease (20 sources) Allergic rhinitis; Translations: [Allergic rhinitis] Resolved: 11-21-2017 11-21-2017 Chronic Comment on above: cont flonase - resum e claritin Other upper respiratory disease (20 sources) Nasal sinus problem; Translations: [Sinus pressure] Resolved: 03-31-2020 07-14-2018 Episodic Other upper respiratory infections (20 sources) Chronic sinusitis, unspecified; Translations: [Bacterial sinusitis] Resolved: 04-15-2022 07-14-2018 Chronic Other upper respiratory infections (20 sources) Acute sinusitis, unspecified; Translations: [Acute sinusitis] Onset: 05-13-2009 Resolved: 12-06-2014 12-06-2014 Episodic Residual codes; unclassified (20 sources) Hypersomnia with sleep apnea, unspecified; Translations: [GENERAL SYMPTOMS, HYPERSOMNIA WITH SLEEP APNEA, UNSPECIFIED] 11-21-2017 Chronic Comment on above: cpap. use 5 out of 7 days. still needs 2 hour nap every affternoon. Residual codes; unclassified (20 sources) Obstructive sleep apnea of adult; Translations: [Obstructive sleep apnea, adult] 11-21-2017 Chronic Comment on above: no wear mask bc hate s it Residual codes; unclassified (20 sources) Hypersomnia; Translations: [Idiopathic hypersomnia (Renamed from Hypersomnia, idiopathic)] 01-12-2021 Chronic Residual codes; unclassified (20 sources) Idiopathic hypersomnia; Translations: [Idiopathic hypersomnia (Renamed from Hypersomnia, idiopathic)] 04-15-2022 Chronic Residual codes; unclassified (20 sources) Sleep disorder; Translations: [Sleep disorder] 11-21-2017 Episodic Residual codes; unclassified (20 sources) History of cholecystectomy; Translations: [History of cholecystectomy] 11-21-2017 Episodic Residual codes; unclassified (20 sources) Postmenopausal state; Translations: [Postmenopausal (Renamed from Postmenopausal status)] 11-21-2017 Episodic Residual codes; unclassified (20 sources) Needs influenza immunization; Translations: [Need for prophylactic vaccination and inoculation against influenza (Renamed from Need for immunization against influenza)] 01-23-2018 Episodic Residual codes; unclassified (20 sources) Current non-smoker ; Translations: [Current non-smoker] 11-26-2019 Episodic Residual codes; unclassified (20 sources) Non-smoker; Translations: [Non-smoker] 01-12-2021 Episodic Skin and subcutaneous tissue infections (20 sources) Cellulitis of chest wall ; Translations: [Infection of skin] Resolved: 04-19-2016 10-01-2016 Episodic Comment on above: vs localized inflamm atory reaction Spondylosis; intervertebral disc disorders; other back problems (20 sources) Neck pain; Translations: [Cervicalgia] Resolved: 12-06-2014 03-24-2015 Episodic Syncope (20 sources) Near syncope; Translations: [Near syncope] Resolved: 04-22-2014 04-22-2014 Episodic Comment on above: echo good. BS good o ne time. labs good. holter will get. talk baout keeping sugar stable. at this point no other signs and symptoms if holter negative watch. may need event monitor. try to even out diet and sugars Unclassified (20 sources) Obstructive sleep apnea syndrome; Translations: [Body mass index 40+ - severely obese] Onset: 10-03-2015 11-21-2017 Chronic Comment on above: cpap. use 5 out of 7 days. still needs 2 hour nap every affternoon. no wear mask bc hate s it Unclassified (20 sources) Eating disorder; Translations: [Eating disorder] Resolved: 11-26-2019 11-21-2017 Chronic Comment on above: emotional / bored ea ter - stress eater - food addiction Unclassified (20 sources) Breast neoplasm screening status; Translations: [Patient encounter status] 11-21-2017 Episodic Unclassified (20 sources) Hypersomnia; Translations: [Sleep disorder] 11-21-2017 Episodic Comment on above: SR melatonin working great Unclassified (20 sources) Unclassified (20 sources) Current non-smoker ; Translations: [Current non-smoker] 11-21-2017 Unclassified (20 sources) BMI 39.0-39.9,adult Unclassified (20 sources) RLS (restless legs syndrome) Unclassified (20 sources) Stress reaction Unclassified (20 sources) Obstructive sleep apnea, adult Unclassified (20 sources) Idiopathic hypersomnia (Renamed from Hypersomnia, idiopathic) Unclassified (20 sources) Fall in home, initial encounter Unclassified (20 sources) Acute pain of right wrist Unclassified (20 sources) BMI 38.0-38.9,adult Unclassified (20 sources) Abdominal Pain,Unspecified Site (789.00) Unclassified (20 sources) Plantar Fascititis (728.71) Unclassified (20 sources) GENERAL SYMPTOMS, HYPERSOMNIA WITH SLEEP APNEA, UNSPECIFIED (780.53) Unclassified (20 sources) Merana(IUD) PLACEMENT) 11-21-2017 Unclassified (20 sources) Stress Reaction (308.4) Unclassified (20 sources) Genital herpes, unspecified (054.10) Unclassified (20 sources) Cyst, kidney, acquired (593.2) Unclassified (20 sources) PHYSICAL EXAM, ROUTINE (V70.0) Unclassified (20 sources) Dermatitis, perioral (695.3) Unclassified (20 sources) Encounter for screening mammogram for breast cancer (Renamed from Encounter for screening mammogram for malignant neoplasm of breast) Unclassified (20 sources) Rash Unclassified (20 sources) External hemorrhoid Unclassified (20 sources) Myalgia, Unspecified(729.1) Unclassified (20 sources) BMI 37.0-37.9, adult Unclassified (20 sources) Cyst, kidney, acquired Unclassified (20 sources) Encounter for screening for malignant neoplasm of colon (Renamed from Special screening for malignant neoplasms, colon) Unclassified (20 sources) Encounter for screening colonoscopy Unclassified (20 sources) BMI 35.0-35.9,adult Unclassified (20 sources) Nutritional counseling Unclassified (17 sources) HSV (herpes simplex virus) anogenital infection Unclassified (20 sources) Non-smoker; Translations: [Non-smoker] 11-26-2019 Unclassified (20 sources) BMI 34.0-34.9,adult Unclassified (15 sources) Cervical pain Unclassified (15 sources) Foot pain, right Unclassified (1 source) Acute cough; Translations: [Acute cough] Onset: 12-14-2022 Viral infection (20 sources) Genital herpes simplex; Translations: [Anogenital herpesviral infection] Onset: 11-06-2012 Resolved: 10-18-2013 05-22-2015 Chronic Past or Other Problems Problem Classification Problem Date Documented Date Episodic/Chronic Abdominal pain (20 sources) Abdominal pain, unspecified site; Translations: [Abdominal pain] Onset: 01-19-2012 Resolved: 10-18-2013 02-26-2015 Episodic External Injury - Fall (20 sources) Fall in home; Translations: [Fall in home, initial encounter] 11-21-2017 Genitourinary symptoms and ill-defined conditions (20 sources) Increased frequency of urination; Translations: [Urinary frequency] Onset: 01-19-2012 01-21-2021 Episodic Headache, including migraine (20 sources) Headache, including migraine Influenza (17 sources) Influenza Mood disorders (20 sources) Mood disorders Other connective tissue disease (20 sources) Pain in left foot; Translations: [Pain in left foot] Resolved: 10-27-2017 10-27-2017 Episodic Other connective tissue disease (20 sources) Pain in left foot; Translations: [Left foot pain] Resolved: 10-27-2017 10-27-2017 Other connective tissue disease (15 sources) Pain in right foot; Translations: [Foot pain, right] Resolved: 03-31-2020 11-26-2019 Other diseases of kidney and ureters (13 sources) Cyst of kidney; Translations: [Cyst, kidney, acquired] 07-14-2018 Comment on above: last imaging demonst ated that they shrunk Other lower respiratory disease (20 sources) Dyspnea on exertion; Translations: [SOB (shortness of breath) on exertion] Resolved: 10-07-2008 02-21-2015 Episodic Comment on above: ? asthma now / aniet y, not sleeping stress Other non-traumatic joint disorders (20 sources) Bilateral wrist pain; Translations: [Bilateral wrist pain] Resolved: 11-26-2019 10-13-2018 Other skin disorders (13 sources) Inflammatory dermatosis; Translations: [Dermatitis] Resolved: 10-18-2013 10-18-2013 Episodic Comment on above: perioral. try oral d oxy not help to derm Residual codes; unclassified (3 sources) Abnormal cytology findings; Translations: [ASCUS favor benign] Onset: 11-06-2012 11-06-2012 Episodic Residual codes; unclassified (1 source) Asymptomatic menopausal state; Translations: [Asymptomatic menopausal state] Onset: 07-12-2024 Episodic Unclassified (20 sources) Patient encounter status; Translations: [Encounter for gynecological examination without abnormal finding] Resolved: 10-18-2013 11-21-2017 Comment on above: had pap [facility] steve. 50 due scope. needs flu shot last scope 2018 due in 3yrs Unclassified (20 sources) Cellulitis of chest wall Unclassified (20 sources) Skin lesion of chest wall Unclassified (20 sources) Postmenopausal (Renamed from Postmenopausal status) Unclassified (20 sources) History of colon polyps Unclassified (20 sources) Yeast dermatitis Unclassified (20 sources) Screening status; Translations: [Encounter for screening colonoscopy] 11-21-2017 Unclassified (20 sources) Pregnancies (); Translations: [Pregnancies ()] 11-21-2017 Comment on above: 4 Unclassified (20 sources) Abortions/Miscarriage s; Translations: [Abortions/Miscarriag es] 11-21-2017 Comment on above: 1 Unclassified (20 sources) Unspecified Diagnosis Resolved: 04-22-2014 04-22-2014 Unclassified (20 sources) BMI 40.0-44.9, adult Unclassified (20 sources) Deliveries (Parity); Translations: [Deliveries (Parity)] 11-21-2017 Comment on above: 3 Unclassified (20 sources) CONTACT DERMATITIS D/T POISON SHRUTHI, (692.6) Unclassified (20 sources) Allergic Reaction/Allergies (995.3) Unclassified (20 sources) PHARYNGITIS, ACUTE (462.) Unclassified (20 sources) Inflammatory pain of left heel Unclassified (20 sources) Encounter for gynecological examination without abnormal finding Unclassified (20 sources) Sinusitis, bacterial Unclassified (20 sources) Sinus pressure Unclassified (20 sources) BMI 36.0-36.9,adult Unclassified (20 sources) Bilateral wrist pain Unclassified (3 sources) Breast cancer screening Unclassified (1 source) Head congestion Unclassified (1 source) Exposure to SARS virus Results Test Name Value Interpretation Reference Range Facility Urgent Care Visit Reporton 0 11-07-2024 Urgent Care Visit Report [facility] [address], [address] [place] [address] OFFICE VISIT Date of Service: 11/07/24 MR#: [id number] Acct: [id number] Name: LYNDSAY GOSS Rep #: [id number] : 1965 Provider: RED Ivan Age/Sex: 59/F Location: [facility] Status: Signed Intake Vital Signs 10/07/21 11:13 11/07/24 08:38 Height 5 ft 4 in 5 ft 4 in Weight: 174 lb 5 oz BMI 29.9 BP 132/80 H Blood Pressure Location Lt brachial Position Sitting Respiration 16 Pulse 62 Pulse Source NIBP Temp 98.2 F Temp Source Oral Pulse Oximetry (%) 98 Oxygen Delivery Method room air Intake Visit Reasons: POISON SHRUTHI Chief Complaint: rash Database Coordinator Required: No Is patient in pain?: No Allergies acetaminophen (From Tylenol) Allergy (Verified 11/07/24 08:43) Rash cefadroxil hydrate (From Duricef) Allergy (Verified 11/07/24 08:43) Unknown Penicillins Allergy (Verified 11/07/24 08:43) Hives rofecoxib (From Vioxx) Allergy (Verified 11/07/24 08:43) Other zolpidem tartrate (From Ambien) Allergy (Verified 11/07/24 08:43) Swelling meperidine HCl (From Demerol) Adverse Reaction (Verified 11/07/24 08:43) Nausea Medications ???Medication ???Instructions ???Recorded ???Confirmed ???Type atenolol 25 mg tablet 25 mg PO DAILY 06/19/14 11/07/24 H istory fluticasone propionate 50 2 spray NASAL DAILY 06/19/1411/07 History mcg/actuation nasal spray,suspension dextromethorphan IR 45 1 tab PO QAM 11/07/24 11/07/24 His tory mg-bupropion ER 105 mg biphasic tablet (Auvelity) guanfacine 1 mg tablet,extended 1 mg PO QDAY 11/07/24 11/07/24 His tory release 24 hr methylphenidate HCl 20 mg 20 mg PO QPM 11/07/24 11/07/24 His tory capsule,delayed release,ext release sprinkle (Jorna PM) prednisone 20 mg tablet 20 mg PO DIRECTED #30 tabs 10/1111/07/24 Rx vibegron 75 mg tablet (Gemtesa) 75 mg PO QDAY 11/07/24 11/07/24 Hi story Is last menstrual period known: No Post menopausal: Yes Patient : No Have you fallen in the past year?: No Nurse's Note: rash to arms, legs, toes x 2 weeks with intense itching. has tried numerous otc meds without relief. [facility] Medical History (Updated 11/07/24 @ 08:57 by RED Renteria) Contact dermatitis due to poison shruthi Kidney disease HTN (hypertension) Surgical History History of carpal tunnel surgery of right wrist History of tonsillectomy History of bunionectomy of both great toes Hx of cholecystectomy Social History (Updated 11/07/24 @ 08:47 by Lorraine Azeveod) adopted: Yes Smoking Status: Former smoker alcohol intake: current substance use type: does not use HPI HPI Chief Complaint: rash Details: LYNDSAY GOSS, is a 59 F who presents to the office today for HPI: Patient presents today complaining of 2 weeks exposure to poison shruthi. She notes diffuse vesicular rash over her hands, arms, legs, and feet. She otherwise denies any nausea vomiting fever or any other health complaints. ROS: As noted in HPI Physical Exam: VITALS: Reviewed. GEN: Healthy appearing, well-developed, NAD. PSYCH: AOx3. Normal memory, mood, and affect. LUNGS: Normal respiratory effort. SKIN: Warm, well perfused. Scattered vesicular rash over arms, legs, hands, feet. MSK: Normal gait. NEURO: Ambulating with no limitations. Normal muscle strength and tone. No focal deficits. Coding Level of Care Code Off vis,new,level 3 Diagnoses Contact dermatitis due to poison shruthi L23.7 Assessment and Plan Assessment and Plan (1) Contact dermatitis due to poison shruthi: Status: Acute Plan: Patient's presentation most consistent with poison shruthi. She was given a 15-day taper of prednisone as noted below. 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 [facility] Anion gap in Serum or Plasma Ordered By: Renetta Angulo on 07-07-2024 Anion gap [Moles/Vol] 10 mmol/L 5-15 [facility] BUN/creatinine ratioOrdered By: Renetta Angluo on 07-07-2024 Urea nitrogen/Creatinine [Mass ratio] 17.6 mg/mg 10-20 [facility] Bilirubin Test strip Ql (U)O rdered By: Renetta Angulo on 07-07-2024 Bilirubin Ql (U) Negative Negative [facility] Bilirubin, totalOrdered By: Renetta Angulo on 07-07-2024 Bilirubin [Mass/Vol] 0.37 mg/dL 0.00-1.30 [facility] Calculated very low density lipoprotein (VLDL) cholesterol measurementOrdered By: Renetta Julissa on 07-07-2024 VLDL Cholesterol 12 mg/dL 5-40 [facility] Carbon dioxide, total [Moles /volume] in Central venous bloodOrdered By: Renettabriana Angulo on 07-07-2024 CO2 [Moles/Vol] 24.9 mmol/L 21.0-32.0 [facility] Chloride assayOrdered By: Shaw Wardon on 07-07-2024 Chloride [Moles/Vol] 109 mmol/L High 98-108 [facility] Comprehensive Metabolic Prof ilon 07-07-2024 Albumin [Mass/Vol] 4.2 g/dL Normal 3.5-5.0 [facility] Comment on above: Performed By: #### L 506.1001, L400.0001, L502.0250, L501.9985, L501.9520, L503.0106, L500.4050, L500.4100 #### [facility] [address] [place], [address] Albumin/Globulin [Mass ratio] 1.8 {ratio} Normal 0.9-2.4 [facility] Comment on above: Performed By: #### L 506.1001, L400.0001, L502.0250, L501.9985, L501.9520, L503.0106, L500.4050, L500.4100 #### [facility] [address] [place], [address] ALK PHOS 77 U/L Normal 35-104 [facility] Comment on above: Performed By: #### L 506.1001, L400.0001, L502.0250, L501.9985, L501.9520, L503.0106, L500.4050, L500.4100 #### [facility] [address] [place], [address] ALT [Catalytic activity/Vol] 12 U/L Normal <=34 [facility] Comment on above: Performed By: #### L 506.1001, L400.0001, L502.0250, L501.9985, L501.9520, L503.0106, L500.4050, L500.4100 #### [facility] [address] [place], [address] AST [Catalytic activity/Vol] 19 U/L Normal <=31 [facility] Comment on above: Performed By: #### L 506.1001, L400.0001, L502.0250, L501.9985, L501.9520, L503.0106, L500.4050, L500.4100 #### [facility] [address] [place], [address] Bilirubin [Mass/Vol] 0.37 mg/dL Normal 0.00-1.30 [facility] Comment on above: Performed By: #### L 506.1001, L400.0001, L502.0250, L501.9985, L501.9520, L503.0106, L500.4050, L500.4100 #### [facility] [address] [place], [address] BUN/CRE 17.6 RATIO Normal 10-20 [facility] Comment on above: Performed By: #### L 506.1001, L400.0001, L502.0250, L501.9985, L501.9520, L503.0106, L500.4050, L500.4100 #### [facility] [address] [place], [address] Calcium [Mass/Vol] 10.3 mg/dL Normal 7.6-11.0 [facility] Comment on above: Performed By: #### L 506.1001, L400.0001, L502.0250, L501.9985, L501.9520, L503.0106, L500.4050, L500.4100 #### [facility] [address] [place], [address] Chloride [Moles/Vol] 109 mmol/L High 98-108 [facility] Comment on above: Performed By: #### L 506.1001, L400.0001, L502.0250, L501.9985, L501.9520, L503.0106, L500.4050, L500.4100 #### [facility] [address] [place], [address] CO2 [Moles/Vol] 24.9 mmol/L Normal 21.0-32.0 [facility] Comment on above: Performed By: #### L 506.1001, L400.0001, L502.0250, L501.9985, L501.9520, L503.0106, L500.4050, L500.4100 #### [facility] [address] [place], [address] Creatinine [Mass/Vol] 1.07 mg/dL Normal 0.70-1.20 [facility] Comment on above: Performed By: #### L 506.1001, L400.0001, L502.0250, L501.9985, L501.9520, L503.0106, L500.4050, L500.4100 #### [facility] [address] [place], [address] GAP 10 Normal 5-15 [facility] Comment on above: Performed By: #### L 506.1001, L400.0001, L502.0250, L501.9985, L501.9520, L503.0106, L500.4050, L500.4100 #### [facility] [address] [place], [address] GFR/1.73 sq M.predicted among non-blacks MDRD (S/P/Bld) [Vol rate/Area] 60 mL/min/{1.73_m2} Normal >60 [facility] Comment on above: Result Comment: mL/m in/1.73m2 CKD-EPI Creatinine Equation (2020) Performed By: #### L 506.1001, L400.0001, L502.0250, L501.9985, L501.9520, L503.0106, L500.4050, L500.4100 #### [facility] [address] [place], [address] Globulin (S) [Mass/Vol] 2.3 g/dL Normal 2.2-4.2 [facility] Comment on above: Performed By: #### L 506.1001, L400.0001, L502.0250, L501.9985, L501.9520, L503.0106, L500.4050, L500.4100 #### [facility] [address] [place], [address] Glucose [Mass/Vol] 116 mg/dL High 70-99 [facility] Comment on above: Performed By: #### L 506.1001, L400.0001, L502.0250, L501.9985, L501.9520, L503.0106, L500.4050, L500.4100 #### [facility] [address] [place], [address] Potassium [Moles/Vol] 5.1 mmol/L Normal 3.3-5.1 [facility] Comment on above: Performed By: #### L 506.1001, L400.0001, L502.0250, L501.9985, L501.9520, L503.0106, L500.4050, L500.4100 #### [facility] [address] [place], [address] Sodium [Moles/Vol] 143 mmol/L Normal 133-145 [facility] Comment on above: Performed By: #### L 506.1001, L400.0001, L502.0250, L501.9985, L501.9520, L503.0106, L500.4050, L500.4100 #### [facility] [address] [place], [address] T PROT 6.4 g/dL Normal 5.9-8.4 [facility] Comment on above: Performed By: #### L 506.1001, L400.0001, L502.0250, L501.9985, L501.9520, L503.0106, L500.4050, L500.4100 #### [facility] [address] [place], [address] Urea nitrogen [Mass/Vol] 19 mg/dL Normal 4-19 [facility] Comment on above: Performed By: #### L 506.1001, L400.0001, L502.0250, L501.9985, L501.9520, L503.0106, L500.4050, L500.4100 #### [facility] [address] [place], [address] Creatinine Unsp time (U) [Ma ss/Vol]Ordered By: Renetta Angulo on 07-07-2024 Creatinine (U) [Mass/Vol] 132.00 mg/dL 28.00-217. 00 [facility] Epithelial cells.squamous LM Ql (Urine sed)Ordered By: Renetta Angulo on 07-07-2024 Epithelial cells.squamous LM.HPF (Urine sed) [#/Area] 0 /[HPF] 5-10 [facility] GFR/1.73 sq M.predicted adina g non-blacks MDRD (S/P/Bld) [Vol rate/Area]Ordered By: Renetta Angulo on 07-07-2024 Estimated GFR (MDRD) Non-Af Amer 60 >60 [facility] Comment on above: mL/min/1.73m2 CKD-EP I Creatinine Equation (2020) Glucose Ql (U)Ordered By: Shaw Angulo on 07-07-2024 Urine Glucose (UA) Normal mg/dl Normal [facility] Hemoglobin A1con 07-07-2024 HbA1c (Bld) [Mass fraction] 5.1 % Low <=5.6 [facility] Comment on above: Performed By: #### L 506.1001, L400.0001, L502.0250, L501.9985, L501.9520, L503.0106, L500.4050, L500.4100 #### [facility] [address] [place], [address] Hemoglobin A1c percentageOrd ered By: Renetta Julissa on 07-07-2024 HbA1c (Bld) [Mass fraction] 5.1 % Low >5.7 [facility] Ketones Test strip Ql (U)Ord ered By: Renettabriana Angulo on 07-07-2024 Ketones Ql (U) Negative Negative [facility] L503.0106on 07-07-2024 Cobalamin (Vitamin B12) [Mass/Vol] 398 pg/mL Normal 180-914 [facility] Comment on above: Performed By: #### L 506.1001, L400.0001, L502.0250, L501.9985, L501.9520, L503.0106, L500.4050, L500.4100 #### [facility] [address] [place], [address] L506.1001on 07-07-2024 Vitamin D 25-OH 71.4 ng/mL Normal 30-100 [facility] Comment on above: Result Comment: Carlee min D Status Deficiency: <20 ng/mL (50nmol/L) Insufficiency: 20-30 ng/mL (50-75 nmol/L) Sufficiency: 30-100 ng/mL (75-250 nmol/L) Toxicity: >100 ng/mL (>250 nmol/L) Performed By: #### L 506.1001, L400.0001, L502.0250, L501.9985, L501.9520, L503.0106, L500.4050, L500.4100 #### [facility] [address] [place], [address] LDL calc ser/plasOrdered By: Renetta Angulo on 07-07-2024 LDL Cholesterol, Calculated 107 mg/dL [facility] Comment on above: Tnrufdtlqi=055-136 m g/dL & Higher Bird=077 mg/dL or greater Laboratory - Chemistry and C hemistry - challengeOrdered By: Renetta Angulo on 07-07-2024 AST [Catalytic activity/Vol] 19 U/L <32 [facility] Lipid Profileon 07-07-2024 CHOL:HDL 3.15 Normal [facility] Comment on above: Performed By: #### L 506.1001, L400.0001, L502.0250, L501.9985, L501.9520, L503.0106, L500.4050, L500.4100 #### [facility] [address] [place], [address] Cholesterol [Mass/Vol] 174 mg/dL Normal <=200 [facility] Comment on above: Result Comment: Chol esterol level, Desirable <200 mg/dL Borderline high cholesterol 200-239 mg/dL High cholesterol >=240 mg/dL Recommendations of the NCEP Adult Treatment Panel for the following risk-cutoff thresholds for the [place] population. Performed By: #### L 506.1001, L400.0001, L502.0250, L501.9985, L501.9520, L503.0106, L500.4050, L500.4100 #### [facility] [address] [place], [address] Cholesterol in HDL [Mass/Vol] 55 mg/dL Normal [facility] Comment on above: Result Comment: Angelina onal Cholesterol Education Program (NCEP) guidelines: <40 mg/dL: Low HDL-cholesterol (major risk factor for CHD) >= 60 mg/dL: High HDL-cholesterol (negative risk factor for CHD) HDL-cholesterol is affected by a number of factors, e.g. smoking, exercise, hormones, sex and age. Performed By: #### L 506.1001, L400.0001, L502.0250, L501.9985, L501.9520, L503.0106, L500.4050, L500.4100 #### [facility] [address] [place], [address] Cholesterol in LDL [Mass/Vol] 107 mg/dL Normal [facility] Comment on above: Result Comment: Bord uoponk=355-675 mg/dL Higher Hufr=792 mg/dL or greater Performed By: #### L 506.1001, L400.0001, L502.0250, L501.9985, L501.9520, L503.0106, L500.4050, L500.4100 #### [facility] [address] [place], [address] Cholesterol in VLDL [Mass/Vol] 12 mg/dL Normal 5-40 [facility] Comment on above: Performed By: #### L 506.1001, L400.0001, L502.0250, L501.9985, L501.9520, L503.0106, L500.4050, L500.4100 #### [facility] [address] [place], [address] Triglyceride [Mass/Vol] 58 mg/dL Normal [facility] Comment on above: Result Comment: The drugs N-Acetylcysteine and Metamizole may falsely depress this assay. Normal range: <150 mg/dL Borderline High: 150-199 mg/dL High: 200-499 mg/dL Very High: >500 mg/dL Performed By: #### L 506.1001, L400.0001, L502.0250, L501.9985, L501.9520, L503.0106, L500.4050, L500.4100 #### [facility] [address] [place], [address] Microalb:Creat Ratio,Random URon 07-07-2024 Creatinine [Mass/Vol] 132.00 mg/dL Normal 28.00- 217. 00 [facility] Comment on above: Performed By: #### L 506.1001, L400.0001, L502.0250, L501.9985, L501.9520, L503.0106, L500.4050, L500.4100 #### [facility] [address] [place], [place], [id number] MALB:CREAT UNABLE TO CALCULATE Normal [facility] Comment on above: Performed By: #### L 506.1001, L400.0001, L502.0250, L501.9985, L501.9520, L503.0106, L500.4050, L500.4100 #### [facility] [address] [place], [place], [id number] MICROALBUMIN,UR < 12.0 Normal NO RANGE EST. [facility] Comment on above: Performed By: #### L 506.1001, L400.0001, L502.0250, L501.9985, L501.9520, L503.0106, L500.4050, L500.4100 #### [facility] [address] [facility] [place], [place], [id number] Microalbumin/creat ratio urO rdered By: Renetta Angulo on 07-07-2024 Urine Microalbumin/Creatinine Ratio UNABLE TO CALCULATE mg/g CRE [facility] Microscopic analysis of urin e for red blood cells (RBC)Ordered By: Renetta Angulo on 07-07-2024 Urine RBC 0 SEEN /hpf 0-5 [facility] Mucus LM Ql (Urine sed)Order ed By: Renetta Angulo on 07-07-2024 Mucus Ql (Urine sed) 0 SEEN /hpf [facility] Nitrite Test strip Ql (U)Ord ered By: Renetta Angulo on 07-07-2024 Nitrite Ql (U) Negative Negative [facility] Potassium (Unsp spec) [Mass/ Vol]Ordered By: Renetta Angulo on 07-07-2024 Potassium [Moles/Vol] 5.1 mmol/L 3.3-5.1 [facility] Protein Test strip Ql (U)Ord ered By: Renetta Angulo on 07-07-2024 Protein Ql (U) 15 mg/dl High Negative [facility] Screening total cholesterol/ high density lipoprotein (HDL) cholesterol ratioOrdered By: Renetta Angulo on 07-07-2024 Cholesterol.total/Choles terol in HDL [Mass ratio] 3.15 {ratio} [facility] Serum creatinine measurement (mass/volume)Ordered By: Renetta Angulo on 07-07-2024 Creatinine [Mass/Vol] 1.07 mg/dL 0.70-1.20 [facility] Serum globulin measurementOr dered By: Renetta Angulo on 07-07-2024 Globulin (S) [Mass/Vol] 2.3 g/dL 2.2-4.2 [facility] Serum glucose measurement (m ass/volume)Ordered By: Renetta Angulo on 07-07-2024 Glucose [Mass/Vol] 116 mg/dL High 70-99 [facility] Serum or plasma alanine garay otransferase (ALT) measurementOrdered By: Renetta Angulo on 07-07-2024 ALT [Catalytic activity/Vol] 12 U/L <35 [facility] Serum or plasma albumin raf urement (mass/volume)Ordered By: Renetta Angulo on 07-07-2024 Albumin [Mass/Vol] 4.2 g/dL 3.5-5.0 [facility] Serum or plasma albumin/glob ulin mass ratioOrdered By: Renetta Angulo on 07-07-2024 Albumin/Globulin [Mass ratio] 1.8 {ratio} 0.9-2.4 [facility] Serum or plasma alkaline karrie sphatase measurementOrdered By: Renetta Angulo on 07-07-2024 ALP [Catalytic activity/Vol] 77 U/L 35-104 [facility] Serum or plasma calcium raf urement (mass/volume)Ordered By: Renetta Angulo on 07-07-2024 Calcium [Mass/Vol] 10.3 mg/dL 7.6-11.0 [facility] Serum or plasma cholesterol in HDL measurement (mass/volume)Ordered By: Renetta Angulo on 07-07-2024 Cholesterol in HDL [Mass/Vol] 55 mg/dL >40 [facility] Comment on above: National Cholesterol Education Program (NCEP) guidelines:<40 mg/dL: Low HDL-cholesterol (major risk factor for CHD)>= 60 mg/dL: High HDL-cholesterol (negative risk factor for CHD)HDL-cholesterol is affected by a number of factors, e.g. smoking, exercise, hormones, sex and age. Serum or plasma cholesterol measurement (mass/volume)Ordered By: Renetta Angulo on 07-07-2024 Cholesterol [Mass/Vol] 174 mg/dL <201 [facility] Comment on above: Cholesterol level, D esirable <200 mg/dLBorderline high cholesterol 200-239 mg/dLHigh cholesterol >=240 mg/dLRecommendations of the NCEP Adult Treatment Panel for the following risk-cutoff thresholds for the [place] population. Serum or plasma urea nitroge n measurement (mass/volume)Ordered By: Renetta Angulo on 07-07-2024 Urea nitrogen [Mass/Vol] 19 mg/dL 4-19 [facility] Sodium levelOrdered By: Crissy Angulo on 07-07-2024 Sodium [Moles/Vol] 143 mmol/L 133-145 [facility] TSH DL <= 0.005 mIU/L QnOrde red By: Renetta Angulo on 07-07-2024 Thyroid Stimulating Hormone (TSH) 1.610 uIU/mL 0.300-4.20 0 [facility] Thyroid Stim Hormone (TSH)on 07-07-2024 TSH 1.610 uIU/mL Normal 0.300-4.20 0 [facility] Comment on above: Performed By: #### L 506.1001, L400.0001, L502.0250, L501.9985, L501.9520, L503.0106, L500.4050, L500.4100 #### [facility] [address] [place], [address] Total proteinOrdered By: Lesli Angulo on 07-07-2024 Protein [Mass/Vol] 6.4 g/dL 5.9-8.4 [facility] Triglycerides measurementOrd ered By: Renetta Angulo on 07-07-2024 Triglyceride [Mass/Vol] 58 mg/dL <199 [facility] Comment on above: The drugs N-Acetylcy steine and Metamizole may falsely depress this assay. Normal range: <150 mg/dLBorderline High: 150-199 mg/dLHigh: 200-499 mg/dLVery High: >500 mg/dL Urinalysis, Completeon 07-07 RBC 0 SEEN Normal 0-5 [facility] Comment on above: Order Comment: Urine , Random Performed By: #### L 506.1001, L400.0001, L502.0250, L501.9985, L501.9520, L503.0106, L500.4050, L500.4100 #### [facility] [address] [place], [address] EPI,SQUAMOUS 0-5 SEEN Normal 5-10 [facility] Comment on above: Order Comment: Urine , Random Performed By: #### L 506.1001, L400.0001, L502.0250, L501.9985, L501.9520, L503.0106, L500.4050, L500.4100 #### [facility] [address] [place], [address] WBC 0-5 SEEN Normal 0-5 [facility] Comment on above: Order Comment: Urine , Random Performed By: #### L 506.1001, L400.0001, L502.0250, L501.9985, L501.9520, L503.0106, L500.4050, L500.4100 #### [facility] [address] [place], [address] BACTERIA 0 SEEN Normal None Seen [facility] Comment on above: Order Comment: Urine , Random Performed By: #### L 506.1001, L400.0001, L502.0250, L501.9985, L501.9520, L503.0106, L500.4050, L500.4100 #### [facility] [address] [place], [address] Mucus Ql (Urine sed) 0 SEEN Normal [facility] Comment on above: Order Comment: Urine , Random Performed By: #### L 506.1001, L400.0001, L502.0250, L501.9985, L501.9520, L503.0106, L500.4050, L500.4100 #### [facility] [address] [place], [address] Urine blood detectionOrdered By: Renetta Angulo on 07-07-2024 Urine Occult Blood Negative Negative [facility] Urine clarityOrdered By: Lesli Angulo on 07-07-2024 Clarity (U) Clear Clear [facility] Urine color determinationOrd ered By: Renetta Angulo on 07-07-2024 Color (U) Yellow Yellow [facility] Urine leukocyte esterase det ection by dipstickOrdered By: Renetta Angulo on 07-07-2024 Leukocyte esterase Test strip Ql (U) 25 /ul High Negative [facility] Urine pHOrdered By: Renetta Angulo on 07-07-2024 pH (U) 6.0 [pH] 5.0 - 8.0 [facility] Urine sediment bacteria coun t by microscopy (number/high power field)Ordered By: Renetta Angulo on 07-07-2024 Bacteria LM.HPF (Urine sed) [#/Area] 0 /[HPF] None Seen [facility] Urine specific gravity measu rementOrdered By: Renetta Angulo on 07-07-2024 Specific gravity (U) [Rel density] 1.020 1.002-1.03 0 [facility] Urobilinogen Ql (U)Ordered B y: Renetta Angulo on 07-07-2024 Urine Urobilinogen Normal mg/dl Normal [facility] Vitamin B12 ser/plasOrdered By: Renetta Angulo on 07-07-2024 Cobalamin (Vitamin B12) [Mass/Vol] 398 pg/mL 180-914 [facility] Vitamin D, 25-hydroxyOrdered By: Renetta Angulo on 07-07-2024 Vitamin D 25-Hydroxy 71.4 ng/mL 30-100 [facility] Comment on above: Vitamin D StatusDefi ciency: <20 ng/mL (50nmol/L)Insufficiency: 20-30 ng/mL (50-75 nmol/L)Sufficiency: 30-100 ng/mL (75-250 nmol/L)Toxicity: >100 ng/mL (>250 nmol/L) White blood cell countOrdere d By: Renetta Angulo on 07-07-2024 Urine WBC 0-5 SEEN /hpf 0-5 [facility] MRI KNEE W/O CONTRAST RIGHTo n 06-24-2023 MRI KNEE W/O CONTRAST RIGHT ORIGINAL EXAMINATION: MRI OF THE RIGHT KNEE WITHOUT CONTRAST06/22/2023 3:37 pm TECHNIQUE: Multiplanar multisequence MRI of the right knee was performed without the administration of intravenous contrast. COMPARISON: None. HISTORY: ORDERING SYSTEM PROVIDED HISTORY: Reason for Exam: Contusion ORDERING SYSTEM PROVIDED HISTORY: Reason for Exam: Contusion FINDINGS: The ACL and PCL are intact. There is no evidence of meniscal tear. The medial and lateral collateral ligaments in the iliotibial band and biceps femoris tendons are normal. There is minor degenerative arthritic changes in the medial joint compartment. There is a small joint effusion. Patellofemoral alignment is normal. Patellofemoral ligaments are normal. There is subcutaneous edema in the prepatellar soft tissues without evidence of prepatellar bursitis. There is no fracture or bone contusions. There is no popliteal cyst. Hoffa's fat pad is normal. Quadriceps and patellar tendons are normal. IMPRESSION: 1. Posttraumatic soft tissue bruising-edema in the prepatellar soft tissues with no evidence of patellar fracture or patellar contusion. 2. Small knee joint effusion. 3. Mild degenerate arthritic changes in the medial joint compartment. Interpreted by: Brodie Lester Preliminary Report By: Brodie Lester Electronically signed By Brodie Lester Dictated Date: 06/24/2023 8:25:43 AM Prelim Date: 06/24/2023 8:28:55 AM Sign Date: 06/24/2023 8:28:55 AM Ordering Provider: [facility] ([place] Basophil percentageOrdered B y: Demetrius Anderson on 06-06-2023 Chloride [Moles/Vol] 108 mmol/L 98-107 [facility] Glucose [Mass/Vol] 96 mg/dL 74-106 [facility] Potassium [Moles/Vol] 4.0 mmol/L 3.5-5.1 [facility] Sodium [Moles/Vol] 139 mmol/L 136-145 [facility] Laboratory - Chemistry and C hemistry - challengeOrdered By: Demetrius Anderson on 06-06-2023 CO2 [Moles/Vol] 28.0 mmol/L 21.0-32.0 [facility] Urea nitrogen/Creatinine [Mass ratio] 16.7 mg/mg 10-20 [facility] No Panel InformationOrdered By: Demetrius Anderson on 06-06-2023 Estimated GFR (MDRD) Amer 59 mL/min >60 [facility] Comment on above: GFR Calc Estimated GFR (MDRD) Non-Af Amer 49 mL/min >60 [facility] Comment on above: Non- GFR Calc Serum or plasma calcium raf urement (mass/volume)Ordered By: Demetrius Anderson on 06-06-2023 Calcium [Mass/Vol] 10.2 mg/dL 8.5-10.1 [facility] Serum or plasma creatinine m easurement (mass/volume)Ordered By: Demetrius Anderson on 06-06-2023 Creatinine [Mass/Vol] 1.20 mg/dL 0.55-1.02 [facility] Comment on above: The validity of the calculated GFR & GFRAA in patients over 70 years has not been determined. Clinical correlation is essential. Serum or plasma urea nitroge n measurement (mass/volume)Ordered By: Demetrius Anderson on 06-06-2023 Urea nitrogen [Mass/Vol] 20 mg/dL 7-18 [facility] Thin prep Papanicolaou smear with manual screeningOrdered By: Demetrius Anderson on 06-06-2023 Thin prep Papanicolaou smear with manual screening 3 5-15 [facility] Basophil percentageOrdered B y: Demetrius Anderson on 03-09-2023 Chloride [Moles/Vol] 104 mmol/L 98-107 [facility] Glucose [Mass/Vol] 83 mg/dL 74-106 [facility] Potassium [Moles/Vol] 3.9 mmol/L 3.5-5.1 [facility] Sodium [Moles/Vol] 137 mmol/L 136-145 [facility] Bilirubin Test strip Ql (U)O rdered By: Demetrius Anderson on 03-09-2023 Bilirubin Ql (U) Negative Negative [facility] Ketones Test strip Ql (U)Ord ered By: Demetrius Anderson on 03-09-2023 Ketones Ql (U) Negative Negative [facility] Laboratory - Chemistry and C hemistry - challengeOrdered By: Demetrius Anderson on 03-09-2023 CO2 [Moles/Vol] 26.0 mmol/L 21.0-32.0 [facility] Urea nitrogen/Creatinine [Mass ratio] 16.3 mg/mg 10-20 [facility] Nitrite Test strip Ql (U)Ord ered By: Demetrius Anderson on 03-09-2023 Nitrite Ql (U) Negative Negative [facility] No Panel InformationOrdered By: Demetrius Anderson on 03-09-2023 Estimated GFR (MDRD) Amer 58 mL/min >60 [facility] Comment on above: GFR Calc Estimated GFR (MDRD) Non-Af Amer 48 mL/min >60 [facility] Comment on above: Non- GFR Calc Urine Microalbumin/Creatinine Ratio 8.4 mg/g CRE <30 [facility] Protein Test strip Ql (U)Ord ered By: Demetrius Anderson on 03-09-2023 Protein Ql (U) 15 mg/dl Negative [facility] Serum or plasma calcium raf urement (mass/volume)Ordered By: Demetrius Anderson on 03-09-2023 Calcium [Mass/Vol] 9.7 mg/dL 8.5-10.1 [facility] Serum or plasma creatinine m easurement (mass/volume)Ordered By: Demetrius Anderson on 03-09-2023 Creatinine [Mass/Vol] 1.23 mg/dL 0.55-1.02 [facility] Comment on above: The validity of the calculated GFR & GFRAA in patients over 70 years has not been determined. Clinical correlation is essential. Serum or plasma urea nitroge n measurement (mass/volume)Ordered By: Demetrius Anderson on 03-09-2023 Urea nitrogen [Mass/Vol] 20 mg/dL 7-18 [facility] Thin prep Papanicolaou smear with manual screeningOrdered By: Demetrius Anderson on 03-09-2023 Thin prep Papanicolaou smear with manual screening 7 5-15 [facility] Thin prep Papanicolaou smear with manual screening 18.4 mg/L NO RANGE EST. [facility] Urine blood detectionOrdered By: Demetrius Anderson on 03-09-2023 RBC Ql (U) Negative Negative [facility] Urine clarityOrdered By: Selvin Anderson on 03-09-2023 Clarity (U) Clear Clear [facility] Urine color determinationOrd ered By: Demetrius Anderson on 03-09-2023 Color (U) Yellow Yellow [facility] Urine creatinine measurement (mass/volume)Ordered By: Demetrius Anderson on 03-09-2023 Creatinine (U) [Mass/Vol] 220.00 mg/dL NO RANGE EST. [facility] Urine glucose detectionOrder ed By: Demetrius Anderson on 03-09-2023 Glucose Ql (U) Normal mg/dl Normal [facility] Urine leukocyte esterase det ection by dipstickOrdered By: Demetrius Anderson on 03-09-2023 Leukocyte esterase Test strip Ql (U) 100 /ul Negative [facility] Urine pHOrdered By: Calin Anderson on 03-09-2023 pH (U) 5.0 [pH] 5.0 - 8.0 [facility] Urine specific gravity measu rementOrdered By: Demetrius Anderson on 03-09-2023 Specific gravity (U) [Rel density] 1.025 1.002-1.03 0 [facility] Urobilinogen Auto test strip Ql (U)Ordered By: Demetrius Anderson on 03-09-2023 Urobilinogen Ql (U) Normal mg/dl Normal [facility] Absolute lymphocyte countOrd ered By: Renetta Angulo on 12-20-2022 Lymphocytes Auto (Unsp spec) [#/Vol] 2.30 10*3/uL 0.83-4.51 [facility] Basophil percentageOrdered B y: Renetta Angulo on 12-20-2022 Basophil percentage 5-10 SEEN /hpf 0-5 [facility] Basophils/100 WBC (Bld) 0.4 % 0-1 [facility] Bilirubin [Mass/Vol] 0.80 mg/dL 0.20-1.00 [facility] Comment on above: For patients on eltr ombopag therapy, use of Dimension [place] TBIL is not recommended. Chloride [Moles/Vol] 102 mmol/L 98-107 [facility] Cholesterol [Mass/Vol] 170 mg/dL <200 [facility] Comment on above: <200 mg/dL Desirable 200-240 mg/dL Borderline >240 mg/dL High Risk Eosinophils/100 WBC (Bld) 3.7 % 0-5 [facility] Glucose [Mass/Vol] 103 mg/dL 74-106 [facility] Comment on above: Fasting Glucose resu lt from 100 to 125 mg/dL suggests IMPAIRED HOMEOSTASIS per A.D.A. criteria. Neutrophils (Bld) [#/Vol] 3.7 10*3/uL 2.0-7.7 [facility] Neutrophils/100 WBC (Bld) 55.4 % 47-70 [facility] Potassium [Moles/Vol] 3.0 mmol/L 3.5-5.1 [facility] Protein [Mass/Vol] 7.4 g/dL 6.4-8.2 [facility] Sodium [Moles/Vol] 137 mmol/L 136-145 [facility] Triglyceride [Mass/Vol] 175 mg/dL <199 [facility] Comment on above: The drugs N-Acetylcy steine and Metamizole may falsely depress this assay.Serum Triglycerides Reference Interval Normal <150 mg/dL Borderline high 150 - 199 mg/dL High 200 - 499 mg/dL Very High > or = 500 mg/dL WBC (Bld) [#/Vol] 6.8 10*3/uL 4.4-11.0 [facility] Bilirubin Test strip Ql (U)O rdered By: Renetta Angulo on 12-20-2022 Bilirubin Ql (U) Negative Negative [facility] Blood erythrocytes count (nu mber/volume)Ordered By: Renetta Angulo on 12-20-2022 RBC (Bld) [#/Vol] 5.48 10*6/uL 4.2-5.4 [facility] Blood hemoglobin measurement (mass/volume)Ordered By: Renetta Angulo on 12-20-2022 Hemoglobin (Bld) [Mass/Vol] 15.1 g/dL 12.0-15.0 [facility] Blood lymphocytes/100 leukoc ytesOrdered By: Renetta Angulo on 12-20-2022 Lymphocytes/100 WBC (Bld) 34.0 % 19-41 [facility] Blood monocytes/100 leukocyt esOrdered By: Renetta Angulo on 12-20-2022 Monocytes/100 WBC (Bld) 6.4 % 0-10 [facility] Blood platelet mean volumeOr dered By: Renetta Angulo on 12-20-2022 Platelet mean volume (Bld) [Entitic vol] 10.7 fL 6.2-12.0 [facility] Determination of erythrocyte mean corpuscular volume (MCV)Ordered By: Renetta Angulo on 12-20-2022 MCV (RBC) [Entitic vol] 78.5 fL 81-99 [facility] Hematocrit Auto (Bld) [Volum e fraction]Ordered By: Renetta Angulo on 12-20-2022 Hematocrit (Bld) [Volume fraction] 43.0 % 37-47 [facility] Ketones Test strip Ql (U)Ord ered By: Renetta Angulo on 12-20-2022 Ketones Ql (U) Negative Negative [facility] Laboratory - Chemistry and C hemistry - challengeOrdered By: Renetta Angulo on 12-20-2022 Albumin [Mass/Vol] 4.1 g/dL 2.9-4.4 [facility] ALP [Catalytic activity/Vol] 105 U/L 45-117 [facility] ALT [Catalytic activity/Vol] 34 U/L 13-56 [facility] CO2 [Moles/Vol] 26.0 mmol/L 21.0-32.0 [facility] Cobalamin (Vitamin B12) [Mass/Vol] 489 pg/mL 211-911 [facility] Globulin (S) [Mass/Vol] 3.4 g/dL 2.2-4.2 [facility] Urea nitrogen/Creatinine [Mass ratio] 20.3 mg/mg 10-20 [facility] - Hematology and Cell countsOrdered By: Renetta Angulo on 12-20-2022 Erythrocyte distribution width (RBC) [Entitic vol] 37.4 fL 35.1-43.9 [facility] Erythrocyte distribution width (RBC) [Ratio] 13.2 % 11.6-14.6 [facility] Immature granulocytes/100 WBC (Bld) 0.100 % 0.0-0.9 [facility] Comment on above: IG% - Immature Granu locytes (promyelocytes, myelocytes and metamyelocytes) > 1% indicates that a LEFT SHIFT is Present. MCH (RBC) [Entitic mass] 27.6 pg 27.0-32.0 [facility] Nucleated RBC/100 WBC (Bld) [Ratio] 0 % 0-5 [facility] MCHC Auto (RBC) [Mass/Vol]Or dered By: Renetta Angulo on 12-20-2022 MCHC (RBC) [Mass/Vol] 35.1 g/dL 32-36 [facility] Mucus LM Ql (Urine sed)Order ed By: Renetta Angulo on 12-20-2022 Mucus Ql (Urine sed) 0 SEEN /hpf [facility] Nitrite Test strip Ql (U)Ord ered By: Renetta Agnulo on 12-20-2022 Nitrite Ql (U) Negative Negative [facility] No Panel InformationOrdered By: Renetta Angulo on 12-20-2022 Addendum Document Comment . [facility] Comment on above: The SPE pattern appe ars unremarkable. Evidence ofmonoclonal protein is not apparent. Dsjgz-8-Icajtztno 0.2 g/dL 0.0-0.4 [facility] Fxoae-5-Vpcdbrkve 0.8 g/dL 0.4-1.0 [facility] Estimated GFR (MDRD) Amer 47 mL/min >60 [facility] Comment on above: GFR Calc Estimated GFR (MDRD) Non-Af Amer 39 mL/min >60 [facility] Comment on above: Non- GFR Calc Gamma Globulins 1.0 g/dL 0.4-1.8 [facility] Thyroid Stimulating Hormone (TSH) 1.60 uIU/mL 0.358-3.74 [facility] Urine Microalbumin/Creatinine Ratio 3.5 mg/g CRE <30 [facility] Vitamin D 25-Hydroxy 54.4 ng/mL [facility] Comment on above: Vitamin D 25(OH) Sta tus Range Deficiency <20 ng/mL (50nmol/L) Insufficiency 20 - 30 ng/mL (50 - 75 nmol/L) Sufficiency 30 - 100 ng/mL (75 - 250 nmol/L) Toxicity >100 ng/mL (>250 nmol/L) Platelets bldOrdered By: Lesli Angulo on 12-20-2022 Platelets (Bld) [#/Vol] 326 10*3/uL 150-450 [facility] Protein Fractions Elph [Inte rp]Ordered By: Renetta Angulo on 12-20-2022 Protein Fractions [Interp] Comment . [facility] Comment on above: Protein electrophore sis scan will follow via computer,mail, or testing shaking shipping delivery. Protein Test strip Ql (U)Ord ered By: Renetta Angulo on 12-20-2022 Protein Ql (U) Negative Negative [facility] Serum albumin to globulin ra molina by protein electrophoresisOrdered By: Renetta Angulo on 12-20-2022 Albumin/Globulin Elph [Mass ratio] 1.4 0.7-1.7 [facility] Serum globulin measurement ( mass/volume)Ordered By: Renetta Angulo on 12-20-2022 Globulin (S) [Mass/Vol] 2.9 g/dL 2.2-3.9 [facility] Serum or plasma albumin raf urement (mass/volume)Ordered By: Renetta nAgulo on 12-20-2022 Albumin [Mass/Vol] 4.0 g/dL 3.2-5.0 [facility] Serum or plasma albumin/glob ulin mass ratioOrdered By: Renetta Angulo on 12-20-2022 Albumin/Globulin [Mass ratio] 1.2 {ratio} 0.9-2.4 [facility] Serum or plasma angiotensin converting enzyme measurement (enzymatic activity/volume)Ordered By: Renetta Angulo on 12-20-2022 Angiotensin converting enzyme [Catalytic activity/Vol] 45 U/L 14-82 [facility] Comment on above: Performed at: [address] [id number] Director: Brodie Vaca PhD, Phone: [phone] Serum or plasma beta globuli n measurement by electrophoresis (mass/volume)Ordered By: Renetta Angulo on 12-20-2022 Beta globulin Elph [Mass/Vol] 1.1 g/dL 0.7-1.3 [facility] Serum or plasma calcium raf urement (mass/volume)Ordered By: Renetta Angulo on 12-20-2022 Calcium [Mass/Vol] 10.3 mg/dL 8.5-10.1 [facility] Serum or plasma cholesterol in HDL measurement (mass/volume)Ordered By: Renetta Angulo on 12-20-2022 Cholesterol in HDL [Mass/Vol] 45 mg/dL >40 [facility] Comment on above: The drugs N-Acetylcy steine and Metamizole may falsely depress this assay. Reference Range HDL <40 mg/dL Low HDL Cholesterol HDL >or= 60 mg/dL High HDL Cholesterol Serum or plasma cholesterol in VLDL measurement (mass/volume)Ordered By: Renetta Angulo on 12-20-2022 Cholesterol in VLDL [Mass/Vol] 35 mg/dL 5-40 [facility] Serum or plasma creatinine m easurement (mass/volume)Ordered By: Renetta Angulo on 12-20-2022 Creatinine [Mass/Vol] 1.48 mg/dL 0.55-1.02 [facility] Comment on above: The validity of the calculated GFR & GFRAA in patients over 70 years has not been determined. Clinical correlation is essential. Serum or plasma low density lipoprotein (LDL) cholesterol measurement (mass/volume)Ordered By: Renetta Angulo on 12-20-2022 Cholesterol in LDL [Mass/Vol] 90 mg/dL 0-130 [facility] Serum or plasma urea nitroge n measurement (mass/volume)Ordered By: Renetta Angulo on 12-20-2022 Urea nitrogen [Mass/Vol] 30 mg/dL 7-18 [facility] Squamous epithelial cells de tection in urine sediment by light microscopyOrdered By: Renetta Angulo on 12-20-2022 Epithelial cells.squamous LM Ql (Urine sed) 0 SEEN /hpf 5-10 [facility] Thin prep Papanicolaou smear with manual screeningOrdered By: Renetta Angulo on 12-20-2022 Thin prep Papanicolaou smear with manual screening 15 U/L 15-37 [facility] Thin prep Papanicolaou smear with manual screening 9 5-15 [facility] Thin prep Papanicolaou smear with manual screening 5.9 mg/L NO RANGE EST. [facility] Thin prep Papanicolaou smear with manual screening See comment [facility] Comment on above: Comments: Not Observ ed Total protein bloodOrdered B y: Renetta Angulo on 12-20-2022 Protein [Mass/Vol] 7.0 g/dL 6.0-8.5 [facility] Urine blood detectionOrdered By: Renetta Angulo on 12-20-2022 RBC Ql (U) Negative Negative [facility] RBC Ql (U) 0 SEEN /hpf 0-5 [facility] Urine clarityOrdered By: Lesli Angulo on 12-20-2022 Clarity (U) Clear Clear [facility] Urine color determinationOrd ered By: Renetta Angulo on 12-20-2022 Color (U) Yellow Yellow [facility] Urine creatinine measurement (mass/volume)Ordered By: Renetta Angulo on 12-20-2022 Creatinine (U) [Mass/Vol] 171.00 mg/dL NO RANGE EST. [facility] Urine glucose detectionOrder ed By: Renetta Angulo on 12-20-2022 Glucose Ql (U) Normal mg/dl Normal [facility] Urine leukocyte esterase det ection by dipstickOrdered By: Renetta Angulo on 12-20-2022 Leukocyte esterase Test strip Ql (U) 500 /ul Negative [facility] Urine pHOrdered By: Renetta Angulo on 12-20-2022 pH (U) 6.5 [pH] 5.0 - 8.0 [facility] Urine sediment bacteria coun t by microscopy (number/high power field)Ordered By: Renettabriana Angulo on 12-20-2022 Bacteria LM.HPF (Urine sed) [#/Area] 0 /[HPF] None Seen [facility] Urine specific gravity measu rementOrdered By: Renetta Angulo on 12-20-2022 Specific gravity (U) [Rel density] 1.010 1.002-1.03 0 [facility] Urobilinogen Auto test strip Ql (U)Ordered By: Renetta Angulo on 12-20-2022 Urobilinogen Ql (U) Normal mg/dl Normal [facility] Whole blood hemoglobin A1c/t otal hemoglobin ratio (mass fraction)Ordered By: Renetta Angulo on 12-20-2022 HbA1c (Bld) [Mass fraction] 4.8 % 3.8-5.6 [facility] Comment on above: Normal < 5.7 % Predi abetic 5.7 - 6.4 % Diabetic >or= 6.5 % Please note range changes. [facility] LYNDSAY GOSS ([id number]) 1965 F Date Time Provider Department 12/14/22 PARRISH AZEVEDO [facility] During your visit today, we recorded the following information about you: Parrish Azevedo APRN.FIRE PROTECTION INSPECTOR 12/14/2022 5:09 PM Signed Please call patient and let her know that her x-ray came back with no acute findings and just to continue the care plan as discussed with provider. Inez Lopez 12/14/2022 7:06 PM Signed Left message for patient to return call. Christine Bonilla MA 12/15/2022 7:39 PM Signed Left message for pt to call back. RON Winston Alexandra, MA 12/16/2022 8:41 AM Signed Left VM instructing patient to return call to receive results. Patient has reviewed results on [employer], will also send letter to listed address today. Margo Irvin MA Allergies As of Date: 12/14/2022 Noted Allergy Reaction AMBIEN (ZOLPIDEM TARTRATE) 07/08/2009 7 - Swelling Comments: Tongue Swelling AMPICILLIN 03/11/2006 DEMEROL (MEPERIDINE (PF)) 03/11/2006 DURACEF (CEFADROXIL) 03/11/2006 TYLENOL (ACETAMINOPHEN) 07/22/2015 2 - Rash VIOXX (ROFECOXIB) 03/11/2006 Date Reviewed: 12/13/2022 Reviewed by: Inez Lopez - Fully Assessed Reason for Visit: Results [95] Prescriptions as of 12/16/2022 - busPIRone (BUSPAR) 5 mg tablet 1 tablet Orally three times a day - methylphenidate ER 18 mg biphasic tablet Take 18 mg by mouth every morning. - hydroCHLOROthiazide 25 mg tablet TAKE 1 TABLET BY MOUTH EVERY DAY IN THE MORNING FOR 30 DAYS - SPRAVATO 84 mg (28 mg x 3) nasal spray - vibegron (GEMTESA) 75 mg tablet 1 tablet Orally Once a day for 30 day(s) - albuterol HFA (PROVENTIL HFA, VENTOLIN HFA) 90 mcg/actuation inhaler Inhale 2 Puffs as instructed every 6 hours as needed for wheezing/shortness of breath. - benzonatate (TESSALON PERLES) 100 mg capsule Take 1 capsule by mouth three times daily as needed for up to 7 days. - predniSONE (DELTASONE) 20 mg tablet Take 2 tablets by mouth once daily for 5 days. - melatonin 3 mg Take 3 mg by mouth daily at bedtime. - escitalopram 20 mg tablet Take 20 mg by mouth once daily. - fluticasone propionate(FLONASE 50 MCG/ACTUATION NASAL SPRAY) Two puffs per nostril daily. - VALTREX 500 MG TAB Take one(1) tablet daily. - ATENOLOL 25 MG TAB Take one(1) tablet daily. Problem List As Of Date 12/14/2022 Noted Resolved Abdominal pain, right lower quadrant [R10.31] 01/19/2012 11/06/2012 Abdominal pain, left lower quadrant [R10.32] 01/19/2012 11/06/2012 Urgency of urination [R39.15] 01/19/2012 Genital herpes [A60.00] 11/06/2012 Depression [F32.A] 11/06/2012 Menorrhagia [N92.0] 11/06/2012 ASCUS favor benign [NPE5384] 11/06/2012 AUBRIE (obstructive sleep apnea) [G47.33] 10/03/2015 Essential hypertension [I10] 10/03/2015 Congenital atrophy of kidney [Q60.5] 10/03/2015 Chronic cholecystitis with calculus [K80.10] 05/19/2016 Letter Text Encounter Status:Closed by MARGO IRVIN on 12/16/22 Normal [facility] XR CHEST 2V FRONTAL/LATon XR CHEST 2V FRONTAL/LAT * * *Final Repor t* * * DATE OF EXAM: Dec 14 2022 4:03PM WOX [id number] - XR CHEST 2V FRONTAL/LAT / PROCEDURE REASON: Acute cough * * * * Physician Interpretation * * * * EXAMINATION: CHEST RADIOGRAPH (2 VIEW FRONTAL and LATERAL) CLINICAL HISTORY: Acute cough MQ: XC2_6 EXAM DATE/TIME: 12/14/2022 4:03 PM COMPARISON: No relevant prior studies available. RESULT: Lines, tubes, and devices: None. Lungs and pleura: No consolidation. No lung mass. No pleural effusion. No pneumothorax. Cardiomediastinal silhouette: Normal cardiomediastinal silhouette. Bones and soft tissues: There are degenerative changes in the spine. IMPRESSION: No acute radiographic abnormality. Backup Engineer: PSCB Transcribe Date/Time: Dec 14 2022 4:09P Dictated by : MICHELLE RODRIGUEZ MD This examination was interpreted and the report reviewed and electronically signed by: MICHELLE RODRIGUEZ MD on Dec 14 2022 4:09PM EST [id number] Normal [facility] XR Chest PA and Lateralon IMPRESSION: No acute radiographic abnormality. Backup Engineer: PSCB Transcribe Date/Time: Dec 14 2022 4:09P Dictated by : MICHELLE RODRIGUEZ MD This examination was interpreted and the report reviewed and electronically signed by: MICHELLE RODRIGUEZ MD on Dec 14 2022 4:09PM [facility] DIVISION OF RADIOLOGY * * *Final Report* * * DATE OF EXAM: Dec 14 2022 4:03PM WOX [id number] - XR CHEST 2V FRONTAL/LAT / PROCEDURE REASON: Acute cough * * * * Physician Interpretation * * * * EXAMINATION: CHEST RADIOGRAPH (2 VIEW FRONTAL & LATERAL) CLINICAL HISTORY: Acute cough MQ: XC2_6 EXAM DATE/TIME: 12/14/2022 4:03 PM COMPARISON: No relevant prior studies available. RESULT: Lines, tubes, and devices: None. Lungs and pleura: No consolidation. No lung mass. No pleural effusion. No pneumothorax. Cardiomediastinal silhouette: Normal cardiomediastinal silhouette. Bones and soft tissues: There are degenerative changes in the spine. DIVISION OF RADIOLOGY Provider, [facility] - 12/14/2022 * * *Final Report* * * DATE OF EXAM: Dec 14 2022 4:03PM WOX 5291 - XR CHEST 2V FRONTAL/LAT / PROCEDURE REASON: Acute cough * * * * Physician Interpretation * * * * EXAMINATION: CHEST RADIOGRAPH (2 VIEW FRONTAL & LATERAL) CLINICAL HISTORY: Acute cough MQ: XC2_6 EXAM DATE/TIME: 12/14/2022 4:03 PM COMPARISON: No relevant prior studies available. RESULT: Lines, tubes, and devices: None. Lungs and pleura: No consolidation. No lung mass. No pleural effusion. No pneumothorax. Cardiomediastinal silhouette: Normal cardiomediastinal silhouette. Bones and soft tissues: There are degenerative changes in the spine. IMPRESSION IMPRESSION: No acute radiographic abnormality. Backup Engineer: PSCB Transcribe Date/Time: Dec 14 2022 4:09P Dictated by : MICHELLE RODRIGUEZ MD This examination was interpreted and the report reviewed and electronically signed by: MICHELLE RODRIGUEZ MD on Dec 14 2022 4:09PM [facility] Radiology Study observation (narrative) [facility] XR Chest PA and LateralOrder ed By: Ccf Provider on 12-14-[address] [facility] CNOVon 12-13-2022 CNOV Office Visit ([facility] ) LYNDSAY GOSS ([id number]) 1965 F Date Time Provider Department 12/13/22 9:45 AM PARRISH AZEVEDO [facility] During your visit today, we recorded the following information about you: Temperature Pulse Respiration Blood pressure 96.9 degrees 70/minute 16/minute 118/82 Weight 86.6 kg Parrish Azevedo, AMANDA.FIRE PROTECTION INSPECTOR 12/13/2022 9:57 AM Signed CC: Patient presents with: Nasal Congestion: drainage, cough, sob x 5 days HPI: Lyndsay Goss is a 57 year old female who presents to the office with complaint of head congestion, cough, nonproductive, and rhinorrhea for a few days. Symptoms are worsening Associated symptoms includes nasal congestion. Denies nausea, vomiting , and diarrhea. Treatments tried include nothing so far. with no relief of symptoms. Sick contacts: unknown. History of asthma, frequent episodes of bronchitis, chronic bronchitis, bronchiectasis or COPD: No Smoker: No Seasonal/environmental allergies: No The ROS is otherwise negative. The patient's pmh, medications, allergies, and past visits are reviewed. PHYSICAL EXAM: BP 118/82 Pulse 70 Temp 36.1 ?C (96.9 ?F) Resp 16 Wt 86.6 kg (191 lb) LMP 09/29/2015 SpO2 100% BMI 32.79 kg/m? General appearance: alert, cooperative, pleasant, in no acute distress Head: Normocephalic Eyes: EOM's intact, conjunctiva pink and moist, no icterus, sclera white, non-injected Ears: Right ear: External ear/canal- Normal, TM - clear with good landmarks. Left ear: External ear/canal- Normal, TM - clear with good landmarks Oropharynx:moist without lesions, No erythema, exudates or tonsillar hypertrophy. Heart: Negative. RRR without obvious murmur, gallop, or rubs. No ectopy. Lungs: clear to auscultation, without rales or wheeze, good air exchange PAST MEDICAL HISTORY Diagnosis Date Abnormal glandular Papanicolaou smear of cervix ASCUS with neg HPV Dysthymic disorder Depression (non-psychotic) Genital herpes HTN (hypertension) Other anxiety states Sleep apnea PAST SURGICAL HISTORY Procedure Laterality Date ABLTJ SOF TISS INF TURBS UNI/BI SUPFC INTRAMURAL Turbinoplasty DELIVERY ONLY , low cervical CHOLECYSTECTOMY 04/2016 COLPOSCOPY CERVIX UPPER/ADJACENT VAGINA 06/14/01 Colposcopy CORRECT BUNION,SIMPLE Bunionectomy/bilateral ENDOMETRIAL BX W/WO ENDOCERVIX BX W/O DILAT SPX INSERTION OF IUD June 27, 2008,07/03/2013 Mirena IUD REMOVAL 10/2015 post removal performed uterine ablation LAPAROSCOPY SURG CHOLECYSTECTOMY 05/12/2016 LIG/TRNSXJ FLP TUBE ABDL/VAG APPR UNI/BI 05/22/97 Tubal ligation SALPINGECTOMY 1984 Ectopic SHOULDER SURGERY HX Left June 2014, December 2014 X2 TONSILLECTOMY PRIMARY/SECONDARY AGE 12/> ALLERGIES Ambien [Zolpidem Tartrate], Ampicillin, Demerol [Meperidine (Pf)], Duracef [Cefadroxil], Tylenol [Acetaminophen], and Vioxx [Rofecoxib] MEDICATIONS escitalopram 20 mg tablet Take 20 mg by mouth once daily. fluticasone propionate(FLONASE 50 MCG/ACTUATION NASAL SPRAY) Two puffs per nostril daily. VALTREX 500 MG TAB Take one(1) tablet daily. ATENOLOL 25 MG TAB Take one(1) tablet daily. busPIRone (BUSPAR) 5 mg tablet 1 tablet Orally three times a day methylphenidate ER 18 mg biphasic tablet Take 18 mg by mouth every morning. hydroCHLOROthiazide 25 mg tablet TAKE 1 TABLET BY MOUTH EVERY DAY IN THE MORNING FOR 30 DAYS SPRAVATO 84 mg (28 mg x 3) nasal spray vibegron (GEMTESA) 75 mg tablet 1 tablet Orally Once a day for 30 day(s) albuterol HFA (PROVENTIL HFA, VENTOLIN HFA) 90 mcg/actuation inhaler Inhale 2 Puffs as instructed every 6 hours as needed for wheezing/shortness of breath. Inhalational Spacing Device 1 Device one time only for 1 dose. benzonatate (TESSALON PERLES) 100 mg capsule Take 1 capsule by mouth three times daily as needed for up to 7 days. predniSONE (DELTASONE) 20 mg tablet Take 2 tablets by mouth once daily for 5 days. melatonin 3 mg Take 3 mg by mouth daily at bedtime. FAMILY HISTORY Adopted: Yes Problem Relation Age of Onset other (adopted) Daughter Social History Tobacco Use Smoking status: Former Smokeless tobacco: Never Tobacco comments: 5 years in college Substance Use Topics Alcohol use: Yes Comment: few drinks per month Drug use: No ASSESSMENT/PLAN: 1. Acute cough - ICD9: 786.2, ICD10: R05.1 (primary diagnosis) - ALBUTEROL SULFATE HFA 90 MCG/ACTUATION AEROSOL INHALER - BENZONATATE 100 MG CAPSULE - PREDNISONE 20 MG TABLET - XR CHEST 2V FRONTAL/LAT 2. URI, acute - ICD9: 465.9, ICD10: J06.9 - COVID AND INFLUENZA A/B AND RSV NAAT, ROUTINE No antibiotics at this time if x-ray is positive please treat accordingly. Differentials viral versus pneumonia. Prescription instructions reviewed with patient as applicable. Potential red flag symptoms discussed with the patient. Reviewed appropri (more content not included)... Normal [facility] ROUTINE FLU A/B + RSVon -0 FLUAV RNA BELÉN+probe Ql (Unsp spec) Not detected Normal Not Detected [facility] Comment on above: Order Comment: Speci men Type: SWAB OF INTERNAL NOSE Ordering Facility: [facility] Address: [address] [place] [address] Performed By: #### R TFRSV, [id number] #### [facility] CLIA [id number] [address] [place] [address] [place] FLUBV RNA BELÉN+probe Ql (Unsp spec) Not detected Normal Not Detected [facility] Comment on above: Order Comment: Speci men Type: SWAB OF INTERNAL NOSE Ordering Facility: [facility] Address: [address] [place] [address] Performed By: #### R TFRSV, 57506-4 #### [facility] CLIA [id number] [address] [place] [address] [place] RSV A RNA BELÉN+probe Ql (Unsp spec) Not detected Normal Not Detected [facility] Comment on above: Order Comment: Speci men Type: SWAB OF INTERNAL NOSE Ordering Facility: [facility] Address: [address] [place], [place] [id number] Performed By: #### R TFRSV, 62001-8 #### [facility] CLIA [id number] [address] [place] [address] [place] SARS-CoV-2 RNA Resp Ql BELÉN+p robeon 12-13-2022 SARS-CoV-2 (COVID-19) RNA BELÉN+probe Ql (Resp) COVID 19 RESULT: Not detected The method used is RT-PCR or an equivalent NAAT method. Reference Range (the expected result in uninfected individuals): Not detected Normal [facility] Comment on above: Performed By: #### R TFRSV, 74222-1 #### [facility] CLIA [id number] [address] [place] [address] [place] CBC W/AUTO DIFF WBC ([id number])O rdered By: Youth Nutrition[employer] Monitor on 08-06-2022 Basophils (Bld) [#/Vol] 0.0 10*3/uL Normal 0.0-0.2 [facility]; [facility] Work Phone: Basophils/100 WBC (Bld) 1 % Normal [facility]; [facility] Work Phone: Eosinophils (Bld) [#/Vol] 0.1 10*3/uL Normal 0.0-0.4 [facility]; [facility] Work Phone: Eosinophils/100 WBC (Bld) 4 % Normal [facility]; [facility] Work Phone: Erythrocyte distribution width (RBC) [Ratio] 14.7 % Normal 11.7-15.4 [facility]; [facility] Work Phone: Hematocrit (Bld) [Volume fraction] 37.2 % Normal 34.0-46.6 [facility]; [facility] Work Phone: Hemoglobin (Bld) [Mass/Vol] 12.3 g/dL Normal 11.1-15.9 [facility]; [facility] Work Phone: Immature granulocytes (Bld) [#/Vol] 0.0 10*3/uL Normal 0.0-0.1 [facility]; [facility] Work Phone: Immature granulocytes/100 WBC (Bld) 0 % Normal [facility]; [facility] Work Phone: Lymphocytes (Bld) [#/Vol] 1.3 10*3/uL Normal 0.7-3.1 [facility]; [facility] Work Phone: Lymphocytes/100 WBC (Bld) 31 % Normal [facility]; [facility] Work Phone: MCH (RBC) [Entitic mass] 27.6 pg Normal 26.6-33.0 [facility]; [facility] Work Phone: MCHC (RBC) [Mass/Vol] 33.1 g/dL Normal 31.5-35.7 [facility] prehensive [facility]; [facility] Work Phone: MCV (RBC) [Entitic vol] 83 fL Normal 79-97 [facility]; [facility] Work Phone: Monocytes (Bld) [#/Vol] 0.3 10*3/uL Normal 0.1-0.9 [facility]; [facility] Work Phone: Monocytes/100 WBC (Bld) 6 % Normal [facility]; [facility] Work Phone: Neutrophils (Bld) [#/Vol] 2.3 10*3/uL Normal 1.4-7.0 [facility]; [facility] Work Phone: Neutrophils/100 WBC (Bld) 58 % Normal [facility]; [facility] Work Phone: Platelets (Bld) [#/Vol] 186 10*3/uL Normal 150-450 [facility]; [facility] Work Phone: RBC (Bld) [#/Vol] 4.46 10*6/uL Normal 3.77-5.28 [facility]; [facility] Work Phone: WBC (Bld) [#/Vol] 4.0 10*3/uL Normal 3.4-10.8 [facility]; [facility] Work Phone: HGB A1C ([id number])Ordered By: S ystem Lumber Sticker on 08-06-2022 HbA1c (Bld) [Mass fraction] 5.1 % Normal 4.8-5.6 [facility]; [facility] Work Phone: LIPID PANEL ([id number])Ordered B y: Youth Nutritional Monitor on 08-06-2022 Cholesterol [Mass/Vol] 181 mg/dL Normal 100-199 [facility]; [facility] Work Phone: Cholesterol in HDL [Mass/Vol] 40 mg/dL Normal [facility]; [facility] Work Phone: Triglyceride [Mass/Vol] 121 mg/dL Normal 0-149 [facility]; [facility] Work Phone: LIPID PANEL ([id number]) 22 mg/dL Normal 5-40 [facility]; [facility] Work Phone: LIPID PANEL ([id number]) 119 mg/dL Abnormal 0-99 [facility]; [facility] Work Phone: LIPID PANEL ([id number]) 3.0 {ratio} Normal 0.0-3.2 [facility]; [facility] Work Phone: METABOLIC PANEL, COMPREHENSI VE ([id number])Ordered By: Youth Nutritional Monitor on 08-06-2022 Albumin [Mass/Vol] 4.2 g/dL Normal 3.8-4.9 [facility]; [facility] Work Phone: Albumin/Globulin [Mass ratio] 2.1 {ratio} Normal 1.2-2.2 [facility]; [facility] Work Phone: ALP [Catalytic activity/Vol] 82 U/L Normal 44-121 [facility]; [facility] Work Phone: ALT [Catalytic activity/Vol] 11 U/L Normal 0-32 [facility]; [facility] Work Phone: AST [Catalytic activity/Vol] 15 U/L Normal 0-40 [facility]; [facility] Work Phone: Bilirubin [Mass/Vol] 0.3 mg/dL Normal 0.0-1.2 [facility]; [facility] Work Phone: Calcium [Mass/Vol] 10.3 mg/dL Abnormal 8.7-10.2 [facility]; [facility] Work Phone: Chloride [Moles/Vol] 106 mmol/L Normal 96-106 [facility]; [facility] Work Phone: CO2 [Moles/Vol] 23 mmol/L Normal 20-29 [facility]; [facility] Work Phone: Creatinine [Mass/Vol] 1.41 mg/dL Abnormal 0.57-1.00 [facility]; [facility] Work Phone: Globulin (S) [Mass/Vol] 2.0 g/dL Normal 1.5-4.5 [facility]; [facility] Work Phone: Glucose [Mass/Vol] 88 mg/dL Normal 70-99 [facility]; [facility] Work Phone: Potassium [Moles/Vol] 4.6 mmol/L Normal 3.5-5.2 [facility]; [facility] Work Phone: Protein [Mass/Vol] 6.2 g/dL Normal 6.0-8.5 [facility]; [facility] Work Phone: Sodium [Moles/Vol] 142 mmol/L Normal 134-144 [facility]; [facility] Work Phone: Urea nitrogen [Mass/Vol] 39 mg/dL Abnormal 6-24 [facility]; [facility] Work Phone: Urea nitrogen/Creatinine [Mass ratio] 28 mg/mg Abnormal 9-23 [facility]; [facility] Work Phone: METABOLIC PANEL, [facility] ([id number]) 44 mL/min/1.73 Abnormal [facility]; [facility] Work Phone: MICROALBUMINOrdered By: Syst em Lumber Sticker on 08-06-2022 Albumin DL <= 20 mg/L (U) [Mass/Vol] mg/dL Normal [facility]; [facility] Work Phone: Albumin/Creatinine (U) [Mass ratio] <5 Normal 0-29 [facility]; [facility] Work Phone: Creatinine (U) [Mass/Vol] 62.8 mg/dL Normal [facility]; [facility] Work Phone: TSH ([id number])Ordered By: Zadegoe m Lumber Sticker on 08-06-2022 TSH Qn 2.540 {uIU/mL} Normal 0.450-4.50 0 [facility]; [facility] Work Phone: URINALYSIS, W/ MICRO ([id number]) Ordered By: Youth Nutritional Monitor on 08-06-2022 Appearance (U) Clear Normal [facility]; [facility] Work Phone: Bilirubin Ql (U) Negative Normal Compre[facility] nsive [facility]; [facility] Work Phone: Color (U) Yellow Normal [facility]; [facility] Work Phone: Glucose Ql (U) Negative Normal [facility]; [facility] Work Phone: Hemoglobin Ql (U) Negative Normal Compre[facility] ens[facility]; [facility] Work Phone: Ketones Ql (U) Negative Normal [facility]; [facility] Work Phone: Leukocyte esterase Test strip Ql (U) 1+ Abnormal [facility]; [facility] Work Phone: Microscopic observation LM Nom (Urine sed) See below: Normal [facility]; [facility] Work Phone: Nitrite Ql (U) Negative Normal [facility]; [facility] Work Phone: pH (U) 5.5 [pH] Normal 5.0-7.5 [facility]; [facility] Work Phone: Protein Ql (U) Negative Normal [facility]; [facility] Work Phone: Specific gravity (U) [Rel density] 1.014 1 Normal 1.005-1.03 0 [facility]; [facility] Work Phone: Urobilinogen (U) [Mass/Vol] 0.2 mg/dL Normal 0.2-1.0 [facility]; [facility] Work Phone: Blood Glucose , Office ([phone])Ordered By: Juan R Orozco on 12-07-2021 Glucose Glucometer (BldC) [Moles/Vol] 154 1 Normal [facility]; [facility] Work Phone: HgA1C , Office ([id number])Ordere d By: Juan R Orozco on 12-07-2021 HbA1c (Bld) [Mass fraction] 5.2 % Normal 4.6 - 7.1 [facility]; [facility] Work Phone: Basophil percentageon 2021 Bilirubin [Mass/Vol] 0.60 mg/dL 0.20-1.00 [facility] Work Phone: Comment on above: For patients on eltr ombopag therapy, use of Dimension [place] TBIL is not recommended. Chloride [Moles/Vol] 108 mmol/L 98-107 [facility] Work Phone: Cholesterol [Mass/Vol] 187 mg/dL <200 [facility] Work Phone: Comment on above: <200 mg/dL Desirable 200-240 mg/dL Borderline >240 mg/dL High Risk Glucose [Mass/Vol] 96 mg/dL 74-106 [facility] Work Phone: Potassium [Moles/Vol] 3.7 mmol/L 3.5-5.1 [facility] Work Phone: Protein [Mass/Vol] 6.9 g/dL 6.4-8.2 [facility] Work Phone: Sodium [Moles/Vol] 140 mmol/L 136-145 [facility] Work Phone: Triglyceride [Mass/Vol] 87 mg/dL <199 [facility] Work Phone: Comment on above: The drugs N-Acetylcy steine and Metamizole may falsely depress this assay.Serum Triglycerides Reference Interval Normal <150 mg/dL Borderline high 150 - 199 mg/dL High 200 - 499 mg/dL Very High > or = 500 mg/dL WBC (Bld) [#/Vol] 3.6 10*3/uL 4.4-11.0 [facility] Work Phone: Bilirubin Test strip Ql (U)o n 11-04-2021 Bilirubin Ql (U) Negative Negative [facility] Work Phone: Blood erythrocytes count (nu mber/volume)on 11-04-2021 RBC (Bld) [#/Vol] 4.41 10*6/uL 4.2-5.4 [facility] Work Phone: Blood hemoglobin measurement (mass/volume)on 11-04-2021 Hemoglobin (Bld) [Mass/Vol] 12.5 g/dL 12.0-15.0 [facility] Work Phone: Blood platelet mean volumeon 11-04-2021 Platelet mean volume (Bld) [Entitic vol] 10.7 fL 6.2-12.0 [facility] Work Phone: Determination of erythrocyte mean corpuscular volume (MCV)on 11-04-2021 MCV (RBC) [Entitic vol] 82.5 fL 81-99 [facility] Work Phone: Hematocrit Auto (Bld) [Volum e fraction]on 11-04-2021 Hematocrit (Bld) [Volume fraction] 36.4 % 37-47 [facility] Work Phone: Iron measurement (mass/mass) on 11-04-2021 Iron (Unsp spec) [Mass/Mass] 61 ug/dL 50-170 [facility] Work Phone: Ketones Test strip Ql (U)on 11-04-2021 Ketones Ql (U) Negative Negative [facility] Work Phone: Laboratory - Chemistry and C hemistry - challengeon 11-04-2021 ALP [Catalytic activity/Vol] 76 U/L 45-117 [facility] Work Phone: ALT [Catalytic activity/Vol] 19 U/L 13-56 [facility] Work Phone: CO2 [Moles/Vol] 26.0 mmol/L 21.0-32.0 [facility] Work Phone: Cobalamin (Vitamin B12) [Mass/Vol] 432 pg/mL 211-911 [facility] Work Phone: Globulin (S) [Mass/Vol] 3.1 g/dL 2.2-4.2 [facility] Work Phone: Urea nitrogen/Creatinine [Mass ratio] 19.7 mg/mg 10-20 [facility] Work Phone: Laboratory - Hematology and Cell countson 11-04-2021 Erythrocyte distribution width (RBC) [Entitic vol] 40.1 fL 35.1-43.9 [facility] Work Phone: Erythrocyte distribution width (RBC) [Ratio] 13.3 % 11.6-14.6 [facility] Work Phone: MCH (RBC) [Entitic mass] 28.3 pg 27.0-32.0 [facility] Work Phone: MCHC Auto (RBC) [Mass/Vol]on 11-04-2021 MCHC (RBC) [Mass/Vol] 34.3 g/dL 32-36 [facility] Work [facility]: Nitrite Test strip Ql (U)on 11-04-2021 Nitrite Ql (U) Negative Negative [facility] Work Phone: No Panel Informationon 11-04 Estimated GFR (MDRD) Amer 56 mL/min >60 [facility] Work Phone: Comment on above: GFR Calc Estimated GFR (MDRD) Non-Af Amer 46 mL/min >60 [facility] Work Phone: Comment on above: Non- GFR Calc Thyroid Stimulating Hormone (TSH) 1.86 uIU/mL 0.358-3.74 [facility] Work Phone: Total Iron Binding Capacity 293 ug/dL 250-450 [facility] Work Phone: Vitamin D 25-Hydroxy 43.9 ng/mL [facility] Work Phone: Comment on above: Vitamin D 25(OH) Sta tus Range Deficiency <20 ng/mL (50nmol/L) Insufficiency 20 - 30 ng/mL (50 - 75 nmol/L) Sufficiency 30 - 100 ng/mL (75 - 250 nmol/L) Toxicity >100 ng/mL (>250 nmol/L) Platelets bldon 11-04-2021 Platelets (Bld) [#/Vol] 184 10*3/uL 150-450 [facility] Work Phone: Protein Test strip Ql (U)on 11-04-2021 Protein Ql (U) 15 mg/dl Negative [facility] Work Phone: Serum or plasma albumin raf urement (mass/volume)on 11-04-2021 Albumin [Mass/Vol] 3.8 g/dL 3.2-5.0 [facility] Work Phone: Serum or plasma albumin/glob ulin mass ratioon 11-04-2021 Albumin/Globulin [Mass ratio] 1.2 {ratio} 0.9-2.4 [facility] Work Phone: Serum or plasma calcium raf urement (mass/volume)on 11-04-2021 Calcium [Mass/Vol] 10.1 mg/dL 8.5-10.1 [facility] Work Phone: Serum or plasma cholesterol in HDL measurement (mass/volume)on 11-04-2021 Cholesterol in HDL [Mass/Vol] 53 mg/dL >40 [facility] Work Phone: Comment on above: The drugs N-Acetylcy steine and Metamizole may falsely depress this assay. Reference Range HDL <40 mg/dL Low HDL Cholesterol HDL >or= 60 mg/dL High HDL Cholesterol Serum or plasma cholesterol in VLDL measurement (mass/volume)on 11-04-2021 Cholesterol in VLDL [Mass/Vol] 17 mg/dL 5-40 [facility] Work Phone: Serum or plasma creatinine m easurement (mass/volume)on 11-04-2021 Creatinine [Mass/Vol] 1.27 mg/dL 0.55-1.02 [facility] Work Phone: Comment on above: The validity of the calculated GFR & GFRAA in patients over 70 years has not been determined. Clinical correlation is essential. Serum or plasma ferritin kriss surement (mass/volume)on 11-04-2021 Ferritin [Mass/Vol] 465 ng/mL 8-252 [facility] Work Phone: Serum or plasma folate measu rement (mass/volume)on 11-04-2021 Folate [Mass/Vol] 16.50 ng/mL 3.1-55.4 [facility] Work Phone: Serum or plasma iron saturat ion measurement (mass fraction)on 11-04-2021 Iron saturation [Mass fraction] 20.8 % 15.0-55.0 [facility] Work Phone: Serum or plasma low density lipoprotein (LDL) cholesterol measurement (mass/volume)on 11-04-2021 Cholesterol in LDL [Mass/Vol] 117 mg/dL 0-130 [facility] Work Phone: Serum or plasma urea nitroge n measurement (mass/volume)on 11-04-2021 Urea nitrogen [Mass/Vol] 25 mg/dL 7-18 [facility] Work Phone: Thin prep Papanicolaou smear with manual screeningon 11-04-2021 Thin prep Papanicolaou smear with manual screening 11 U/L 15-37 [facility] Work Phone: Thin prep Papanicolaou smear with manual screening 6 5-15 [facility] Work Phone: Urine blood detectionon - RBC Ql (U) Negative Negative [facility] Work Phone: Urine clarityon 11-04-2021 Clarity (U) Clear Clear [facility] Work Phone: Urine color determinationon 11-04-2021 Color (U) Yellow Yellow [facility] Work Phone: Urine glucose detectionon Glucose Ql (U) Normal mg/dl Normal [facility] Work Phone: Urine leukocyte esterase det ection by dipstickon 11-04-2021 Leukocyte esterase Test strip Ql (U) 100 /ul Negative [facility] Work Phone: Urine pHon 11-04-2021 pH (U) 5.0 [pH] 5.0 - 8.0 [facility] Work Phone: Urine specific gravity measu rementon 11-04-2021 Specific gravity (U) [Rel density] 1.020 1.002-1.03 0 [facility] Work Phone: Urobilinogen Auto test strip Ql (U)on 11-04-2021 Urobilinogen Ql (U) Normal mg/dl Normal [facility] Work Phone: CBC W/AUTO DIFF WBC ([id number])O rdered By: Youth Nutritional Monitor on 12-05-2020 Basophils (Bld) [#/Vol] 0.1 10*3/uL Normal 0.0-0.2 [facility]; [facility] Work Phone: Basophils/100 WBC (Bld) 1 % Normal [facility]; [facility] Work Phone: Eosinophils (Bld) [#/Vol] 0.1 10*3/uL Normal 0.0-0.4 [facility]; [facility] Work Phone: Eosinophils/100 WBC (Bld) 2 % Normal [facility]; [facility] Work Phone: Erythrocyte distribution width (RBC) [Ratio] 14.2 % Normal 11.7-15.4 [facility]; [facility] Work Phone: Hematocrit (Bld) [Volume fraction] 38.1 % Normal 34.0-46.6 [facility]; [facility] Work Phone: Hemoglobin (Bld) [Mass/Vol] 13.0 g/dL Normal 11.1-15.9 [facility]; [facility] Work Phone: Immature granulocytes (Bld) [#/Vol] 0.0 10*3/uL Normal 0.0-0.1 [facility]; [facility] Work Phone: Immature granulocytes/100 WBC (Bld) 0 % Normal [facility]; [facility] Work Phone: Lymphocytes (Bld) [#/Vol] 1.4 10*3/uL Normal 0.7-3.1 [facility]; [facility] Work Phone: Lymphocytes/100 WBC (Bld) 30 % Normal [facility]; [facility] Work Phone: MCH (RBC) [Entitic mass] 28.7 pg Normal 26.6-33.0 [facility]; [facility] Work Phone: MCHC (RBC) [Mass/Vol] 34.1 g/dL Normal 31.5-35.7 [facility]; [facility] Work Phone: MCV (RBC) [Entitic vol] 84 fL Normal 79-97 [facility]; [facility] Work Phone: Monocytes (Bld) [#/Vol] 0.3 10*3/uL Normal 0.1-0.9 [facility]; [facility] Work Phone: Monocytes/100 WBC (Bld) 7 % Normal [facility]; [facility] Work Phone: Neutrophils (Bld) [#/Vol] 2.8 10*3/uL Normal 1.4-7.0 [facility]; [facility] Work Phone: Neutrophils/100 WBC (Bld) 60 % Normal [facility]; [facility] Work Phone: Platelets (Bld) [#/Vol] 213 10*3/uL Normal 150-450 [facility]; [facility] Work Phone: RBC (Bld) [#/Vol] 4.53 10*6/uL Normal 3.77-5.28 [facility] Work Phone: WBC (Bld) [#/Vol] 4.6 10*3/uL Normal 3.4-10.8 Com[facility]; [facility] Work Phone: HGB A1C ([id number])Ordered By: S ystem Lumber Sticker on 12-05-2020 HbA1c (Bld) [Mass fraction] 5.3 % Normal 4.8-5.6 [facility]; [facility] Work Phone: LIPID PANEL ([id number])Ordered B y: Youth Nutritional Monitor on 12-05-2020 Cholesterol [Mass/Vol] 205 mg/dL Abnormal 100-199 [facility]; [facility] Work Phone: Cholesterol in HDL [Mass/Vol] 47 mg/dL Normal [facility]; [facility] Work Phone: Triglyceride [Mass/Vol] 93 mg/dL Normal 0-149 [facility]; [facility] Work Phone: LIPID PANEL ([id number]) 17 mg/dL Normal 5-40 [facility]; [facility] Work Phone: LIPID PANEL ([id number]) 141 mg/dL Abnormal 0-99 [facility]; [facility] Work Phone: LIPID PANEL ([id number]) 3.0 {ratio} Normal 0.0-3.2 [facility] Work Phone: METABOLIC PANEL, COMPREHENSI VE ([id number])Ordered By: Youth Nutritional Monitor on 12-05-2020 Albumin [Mass/Vol] 4.4 g/dL Normal 3.8-4.9 [facility]; [facility] Work Phone: Albumin/Globulin [Mass ratio] 2.2 {ratio} Normal 1.2-2.2 [facility]; [facility] Work Phone: ALP [Catalytic activity/Vol] 77 U/L Normal 48-121 [facility]; [facility] Work Phone: ALT [Catalytic activity/Vol] 18 U/L Normal 0-32 [facility]; [facility] Work Phone: AST [Catalytic activity/Vol] 14 U/L Normal 0-40 [facility]; [facility] Work Phone: Bilirubin [Mass/Vol] 0.5 mg/dL Normal 0.0-1.2 [facility] Work Phone: Calcium [Mass/Vol] 10.3 mg/dL Abnormal 8.7-10.2 [facility]; [facility] Work Phone: Chloride [Moles/Vol] 105 mmol/L Normal 96-106 [facility] Work Phone: CO2 [Moles/Vol] 27 mmol/L Normal 20-29 [facility]; [facility] Work Phone: Creatinine [Mass/Vol] 1.09 mg/dL Abnormal 0.57-1.00 [facility]; [facility] Work Phone: GFR/1.73 sq M.predicted among blacks CKD-EPI (S/P/Bld) [Vol rate/Area] 66 mL/min/1.73 Normal [facility]; [facility] Work Phone: GFR/1.73 sq M.predicted among non-blacks CKD-EPI (S/P/Bld) [Vol rate/Area] 57 mL/min/1.73 Abnormal [facility]; [facility] Work Phone: Globulin (S) [Mass/Vol] 2.0 g/dL Normal 1.5-4.5 [facility]; [facility] Work Phone: Glucose [Mass/Vol] 95 mg/dL Normal 65-99 [facility]; [facility] Work Phone: Potassium [Moles/Vol] 4.3 mmol/L Normal 3.5-5.2 [facility] prehensive Internal [facility]; [facility] Work Phone: Protein [Mass/Vol] 6.4 g/dL Normal 6.0-8.5 [facility]; [facility] Work Phone: Sodium [Moles/Vol] 143 mmol/L Normal 134-144 [facility]; [facility] Work Phone: Urea nitrogen [Mass/Vol] 28 mg/dL Abnormal 6-24 [facility]; [facility] Work Phone: Urea nitrogen/Creatinine [Mass ratio] 26 mg/mg Abnormal 9-23 [facility]; [facility] Work Phone: MICROALBUMINOrdered By: Syst em Lumber Sticker on 12-05-2020 Albumin DL <= 20 mg/L (U) [Mass/Vol] mg/dL Normal [facility]; [facility] Work Phone: Albumin/Creatinine (U) [Mass ratio] <3 Normal 0-29 [facility]; [facility] Work Phone: Creatinine (U) [Mass/Vol] 96.8 mg/dL Normal [facility]; [facility] Work Phone: TSH ([id number])Ordered By: Jolene m Lumber Sticker on 12-05-2020 TSH Qn 1.780 {uIU/mL} Normal 0.450-4.50 0 [facility]; [facility] Work Phone: URINALYSIS, W/ MICRO ([id number]) Ordered By: Youth Nutritional Monitor on 12-05-2020 Appearance (U) Clear Normal [facility]; [facility] Work Phone: Bilirubin Ql (U) Negative Normal Comprehe nsive [facility]; [facility] Work Phone: Color (U) Yellow Normal [facility]; [facility] Work Phone: Glucose Ql (U) Negative Normal [facility]; [facility] Work Phone: Hemoglobin Ql (U) Negative Normal Compre[facility] ensive [facility]; [facility] Work Phone: Ketones Ql (U) Negative Normal [facility]; [facility] Work Phone: Leukocyte esterase Test strip Ql (U) Trace Abnormal [facility]; [facility] Work Phone: Microscopic observation LM Nom (Urine sed) See below: Normal [facility]; [facility] Work Phone: Nitrite Ql (U) Negative Normal [facility]; [facility] Work Phone: pH (U) 7.0 [pH] Normal 5.0-7.5 [facility]; [facility] Work Phone: Protein Ql (U) Negative Normal [facility]; [facility] Work Phone: Specific gravity (U) [Rel density] 1.019 1 Normal 1.005-1.03 0 [facility]; [facility] Work Phone: Urobilinogen (U) [Mass/Vol] 0.2 mg/dL Normal 0.2-1.0 [facility]; [facility] Work Phone: CBC W/AUTO DIFF WBC ([id number])O rdered By: Youth Nutritional Monitor on 06-28-2019 Basophils (Bld) [#/Vol] 0.0 {x10E3/uL} Normal 0.0-0.2 [facility] Work Phone: Comment on above: PATIENT WAS FASTINGP ERFORMED BY: [facility][id number] [facility] [id number] Basophils (Bld) [#/Vol] 0.0 10*3/uL Normal 0.0-0.2 [facility]; [facility] Work Phone: Basophils/100 WBC (Bld) 1 % Normal [facility] Work Phone: Comment on above: PATIENT WAS FASTINGP ERFORMED BY: KALPESH [facility] Pcyhof[address] [place] [id number] Eosinophils (Bld) [#/Vol] 0.1 {x10E3/uL} Normal 0.0-0.4 [facility] Work Phone: Comment on above: PATIENT WAS FASTINGP ERFORMED BY: KALPESH [facility] Hcfppt16[address] RoadDublin [place] [id number] Eosinophils (Bld) [#/Vol] 0.1 10*3/uL Normal 0.0-0.4 [facility]; [facility] Work Phone: Eosinophils/100 WBC (Bld) 2 % Normal [facility] Work Phone: Comment on above: PATIENT WAS FASTINGP ERFORMED BY: KALPESH [facility] [id number] RoadDublin [place] [id number] Erythrocyte distribution width (RBC) [Ratio] 13.6 % Normal 11.7-15.4 [facility] Work Phone: Comment on above: PATIENT WAS FASTINGP ERFORMED BY: [facility] Ugpamn45[address]Dublin [place] [id number] Hematocrit (Bld) [Volume fraction] 43.1 % Normal 34.0-46.6 [facility] Work Phone: Comment on above: PATIENT WAS FASTINGP ERFORMED BY: CB [facility] Lwqqfh4597 [address]Dublin [place] [id number] Hemoglobin (Bld) [Mass/Vol] 13.8 g/dL Normal 11.1-15.9 [facility] Work Phone: Comment on above: PATIENT WAS FASTINGP ERFORMED BY: CB [facility] Odhocl69[address] [place] [id number] Immature granulocytes (Bld) [#/Vol] 0.0 {x10E3/uL} Normal 0.0-0.1 [facility] Work Phone: Comment on above: PATIENT WAS FASTINGP ERFORMED BY: KALPESH [facility] SystemsAlexia HillFdhvot[address] [facility] [id number] Immature granulocytes (Bld) [#/Vol] 0.0 10*3/uL Normal 0.0-0.1 [facility]; [facility] Work Phone: Immature granulocytes/100 WBC (Bld) 0 % Normal [facility] Work Phone: Comment on above: PATIENT WAS FASTINGP ERFORMED BY: KALPESH Hilllin[address] [facility] [id number] Lymphocytes (Bld) [#/Vol] 1.5 {x10E3/uL} Normal 0.7-3.1 [facility] Work Phone: Comment on above: PATIENT WAS FASTINGP ERFORMED BY: KALPESH Hilllin[address] [facility] [id number] Lymphocytes (Bld) [#/Vol] 1.5 10*3/uL Normal 0.7-3.1 [facility]; [facility] Work Phone: Lymphocytes/100 WBC (Bld) 31 % Normal [facility] Work Phone: Comment on above: PATIENT WAS FASTINGP ERFORMED BY: KALPESH Hilllin[address] [facility] [id number] MCH (RBC) [Entitic mass] 26.8 pg Normal 26.6-33.0 [facility] Work Phone: Comment on above: PATIENT WAS FASTINGP ERFORMED BY: KALPESH [facility] [id number] [facility] [id number] MCHC (RBC) [Mass/Vol] 32.0 g/dL Normal 31.5-35.7 [facility] prehensive [facility] Work Phone: Comment on above: PATIENT WAS FASTINGP ERFORMED BY: KALPESH LabVeronica Ville [id number] [facility] [id number] MCV (RBC) [Entitic vol] 84 fL Normal 79-97 [facility] Work Phone: Comment on above: PATIENT WAS FASTINGP ERFORMED BY: KALPESH LabCocelena MillanObnbtr4[address]Dublin [place] [id number] Monocytes (Bld) [#/Vol] 0.2 {x10E3/uL} Normal 0.1-0.9 [facility] Work Phone: Comment on above: PATIENT WAS FASTINGP ERFORMED BY: KALPESH [facility] Cbnizk2[address]bl[address] [place] [id number] Monocytes (Bld) [#/Vol] 0.2 10*3/uL Normal 0.1-0.9 [facility]; [facility] Work Phone: Monocytes/100 WBC (Bld) 5 % Normal [facility] Work Phone: Comment on above: PATIENT WAS FASTINGP ERFORMED BY: KALPESH GoyoBritt Npicnl[address] [facility] [id number] Neutrophils (Bld) [#/Vol] 2.9 {x10E3/uL} Normal 1.4-7.0 [facility] Work Phone: Comment on above: PATIENT WAS FASTINGP ERFORMED BY: KALPESH LabBritt Gjhgoo[address] [facility] [place] [id number] Neutrophils (Bld) [#/Vol] 2.9 10*3/uL Normal 1.4-7.0 [facility]; [facility] Work Phone: Neutrophils/100 WBC (Bld) 61 % Normal [facility] Work Phone: Comment on above: PATIENT WAS FASTINGP ERFORMED BY: KALPESH [facility] Isjfct5[address] [place] [id number] Platelets (Bld) [#/Vol] 202 {x10E3/uL} Normal 150-450 [facility] Work Phone: Comment on above: PATIENT WAS FASTINGP ERFORMED BY: KALPESH [facility] Clmtfc[address] [facility] [id number] Platelets (Bld) [#/Vol] 202 10*3/uL Normal 150-450 [facility]; [facility] Work Phone: RBC (Bld) [#/Vol] 5.14 {x10E6/uL} Normal 3.77-5.28 [facility] Work Phone: Comment on above: PATIENT WAS FASTINGP ERFORMED BY: KALPESH LabBirthday Slam Bvthjt32[address] [facility] [id number] RBC (Bld) [#/Vol] 5.14 10*6/uL Normal 3.77-5.28 [facility]; [facility] Work Phone: WBC (Bld) [#/Vol] 4.8 {x10E3/uL} Normal 3.4-10.8 [facility] Work Phone: Comment on above: PATIENT WAS FASTINGP ERFORMED BY: KALPESH Huupy[address] [facility] [id number] WBC (Bld) [#/Vol] 4.8 10*3/uL Normal 3.4-10.8 [facility]; [facility] Work Phone: FSH AND LH ([id number])Ordered By : Youth Nutritional Monitor on 06-28-2019 Follitropin Qn 50.0 m[IU]/mL Normal Compreh ensive [facility] Work Phone: Comment on above: Adult Female: Follic ular phase 3.5 - 12.5 Ovulation phase 4.7 - 21.5 Luteal phase 1.7 - 7.7 Postmenopausal 25.8 - 134.8 PATIENT WAS FASTINGP ERFORMED BY: Huupy6[address] [facility] [id number] Lutropin Qn 51.6 m[IU]/mL Normal [facility]prehens [facility] Work Phone: Comment on above: Adult Female: Follic ular phase 2.4 - 12.6 Ovulation phase 14.0 - 95.6 Luteal phase 1.0 - 11.4 Postmenopausal 7.7 - 58.5 PATIENT WAS FASTINGP ERFORMED BY: CB [facility] Qtkggs5580 [address]Dublin [place] [id number] HGB A1C ([id number])Ordered By: S ystem Lumber Sticker on 06-28-2019 HbA1c (Bld) [Mass fraction] 4.8 % Normal 4.8-5.6 [facility] Work Phone: Comment on above: . Prediabetes: 5.7 - 6.4 Diabetes: >6.4 Glycemic control for adults with diabetes: <7.0 PATIENT WAS FASTINGP ERFORMED BY: CB [facility] Wiqoxj4434 [address] Roadbl[address] [place] [id number] METABOLIC PANEL, COMPREHENSI VE ([id number])Ordered By: Youth Nutritional Monitor on 06-28-2019 Albumin [Mass/Vol] 4.0 g/dL Normal 3.8-4.9 [facility] Work Phone: Comment on above: PATIENT WAS FASTINGP ERFORMED BY: CB [facility] Otweph18[address]bl[address] [place] [id number] Albumin/Globulin [Mass ratio] 1.7 {ratio} Normal 1.2-2.2 [facility] Work Phone: Comment on above: PATIENT WAS FASTINGP ERFORMED BY: CB [facility] Qmqiya16[address]bl[address] [place] [id number] ALP [Catalytic activity/Vol] 64 [iU]/L Normal 39-117 [facility] Work Phone: Comment on above: PATIENT WAS FASTINGP ERFORMED BY: CB [facility] Salbwf[address]bl[address] [place] [id number] ALP [Catalytic activity/Vol] 64 U/L Normal 39-117 [facility]; [facility] Work Phone: ALT [Catalytic activity/Vol] 12 [iU]/L Normal 0-32 [facility] Work Phone: Comment on above: PATIENT WAS FASTINGP ERFORMED BY: CB [facility] Qsxfup8[address]bl[address] [place] [id number] ALT [Catalytic activity/Vol] 12 U/L Normal 0-32 [facility]; [facility] Work Phone: AST [Catalytic activity/Vol] 12 [iU]/L Normal 0-40 [facility] Work Phone: Comment on above: PATIENT WAS FASTINGP ERFORMED BY: KALPESH [facility] Khjsjt[address] [facility]bl[facility] [place] [id number] AST [Catalytic activity/Vol] 12 U/L Normal 0-40 [facility]; [facility] Work Phone: Bilirubin [Mass/Vol] 0.4 mg/dL Normal 0.0-1.2 Comp rehensive [facility] Work Phone: Comment on above: PATIENT WAS FASTINGP ERFORMED BY: KALPESH [facility] Jyexqq[address] [facility] [id number] Calcium [Mass/Vol] 10.1 mg/dL Normal 8.7-10.2 [facility] [facility] Work Phone: Comment on above: PATIENT WAS FASTINGP ERFORMED BY: KALPESH [facility] Wbixso9473 [facility] [id number] Chloride [Moles/Vol] 105 mmol/L Normal 96-106 [facility] Work Phone: Comment on above: PATIENT WAS FASTINGP ERFORMED BY: [facility] Bgquvm7489 [facility] [place] [id number] CO2 [Moles/Vol] 25 mmol/L Normal 20-29 [facility] Internal Medicine Work Phone: Comment on above: PATIENT WAS FASTINGP ERFORMED BY: [facility] Hnufbd7582 [facility] [id number] Creatinine [Mass/Vol] 0.99 mg/dL Normal 0.57-1.00 [facility] Work Phone: Comment on above: PATIENT WAS FASTINGP ERFORMED BY: [facility] Tgsapf97[address] [facility] [id number] GFR/1.73 sq M predicted among blacks CKD-EPI (S/P/Bld) [Vol rate/Area] 75 mL/min/1.73 Normal [facility] Internal Medicine Work Phone: Comment on above: PATIENT WAS FASTINGP ERFORMED BY: [facility] Chxdma6901 Elizabeth RoadDublin [place] [id number] GFR/1.73 sq M predicted among non-blacks CKD-EPI (S/P/Bld) [Vol rate/Area] 65 mL/min/1.73 Normal [facility] Work Phone: Comment on above: PATIENT WAS FASTINGP ERFORMED BY: [facility] Iwkslq4904 Elizabeth RoadDublin [place] [id number] Globulin (S) [Mass/Vol] 2.3 g/dL Normal 1.5-4.5 [facility] Internal Medicine Work Phone: Comment on above: PATIENT WAS FASTINGP ERFORMED BY: [facility] Fwbtuv1991 Elizabeth RoadDublin [place] [id number] Glucose [Mass/Vol] 100 mg/dL Abnormal 65-99 [facility] Internal Medicine Work Phone: Comment on above: PATIENT WAS FASTINGP ERFORMED BY: [facility] Npzpbi3361 Elizabeth RoadDublin [place] [id number] Potassium [Moles/Vol] 4.8 mmol/L Normal 3.5-5.2 [facility] Internal Medicine Work Phone: Comment on above: PATIENT WAS FASTINGP ERFORMED BY: [facility] Bxbllw1409 Elizabeth RoadDublin [place] [id number] Protein [Mass/Vol] 6.3 g/dL Normal 6.0-8.5 [facility] Internal Medicine Work Phone: Comment on above: PATIENT WAS FASTINGP ERFORMED BY: [facility] Yewrik2955 [address] RoadDublin [place] [id number] Sodium [Moles/Vol] 141 mmol/L Normal 134-144 [facility] Internal Medicine Work Phone: Comment on above: PATIENT WAS FASTINGP ERFORMED BY: [facility] Fudpmj1724 Elizabeth RoadDublin [place] [id number] Urea nitrogen [Mass/Vol] 15 mg/dL Normal 6-24 [facility] Work Phone: Comment on above: PATIENT WAS FASTINGP ERFORMED BY: KALPESH GoyoAlexia HillQyllyi32[address] [facility] [id number] Urea nitrogen/Creatinine [Mass ratio] 15 mg/mg Normal 9-23 [facility] Work Phone: Comment on above: PATIENT WAS FASTINGP ERFORMED BY: KALPESH [facility] Nsrffb5587 [facility] [id number] MICROALBUMINOrdered By: Zadego em Lumber Sticker on 06-28-2019 Albumin DL <= 20 mg/L (U) [Mass/Vol] 4.2 ug/mL Normal [facility] Work Phone: Comment on above: PATIENT WAS FASTINGP ERFORMED BY: KALPESH Hilllin[address] [facility] [id number] Albumin/Creatinine (U) [Mass ratio] 4 {mg/g_creat} Normal 0-29 [facility] Work Phone: Comment on above: Normal: 0 - 29 Moder ately increased: 30 - 300 Severely increased: >300 Please note reference interval change PATIENT WAS FASTINGP ERFORMED BY: KALPESH Hilllin[address] [facility] [id number] Creatinine (U) [Mass/Vol] 117.2 mg/dL Normal [facility] Work Phone: Comment on above: PATIENT WAS FASTINGP ERFORMED BY: KALPESH Hilllin[address] [facility] [id number] TSH ([id number])Ordered By: [employer] m Lumber Sticker on 06-28-2019 TSH Qn 2.750 {uIU/mL} Normal 0.450-4.50 0 [facility] Work Phone: Comment on above: PATIENT WAS FASTINGP ERFORMED BY: KALPESH Hilllin[address] [facility] [id number] ANGELINA (ANTINUCLEAR ANTIBODY) ( [id number])Ordered By: Youth Nutritional Monitor on 10-13-2018 Nuclear Ab Ql (S) Negative Normal Compreh ensive Internal Medicine Work Phone: Comment on above: PATIENT NOT FASTINGP ERFORMED BY: KALPESH [facility] Czizhj0670 [facility] [place] [id number] Nuclear Ab Ql (S) Negative Normal Compreh ensive Internal Medicine; [facility] Work Phone: CBC & PLATELETS (AUTO) ([phone])Ordered By: Youth Nutritional Monitor on 10-13-2018 Erythrocyte distribution width (RBC) [Ratio] 14.5 % Normal 12.3-15.4 Comprehensiv e Internal Medicine Work Phone: Comment on above: PATIENT NOT FASTINGP ERFORMED BY: KALPESH [facility] Xhoqml8047 Elizabeth RoadLifecare Hospitals Of North Carolinain [place] [id number] Hematocrit (Bld) [Volume fraction] 39.7 % Normal 34.0-46.6 [facility] Work Phone: Comment on above: PATIENT NOT FASTINGP ERFORMED BY: KALPESH [facility] Hjdupz5801 [facility] [id number] Hemoglobin (Bld) [Mass/Vol] 13.5 g/dL Normal 11.1-15.9 [facility] Work Phone: Comment on above: PATIENT NOT FASTINGP ERFORMED BY: KALPESH [facility] Guaqjs2346 [facility]in [place] [id number] MCH (RBC) [Entitic mass] 27.6 pg Normal 26.6-33.0 [facility] Work Phone: Comment on above: PATIENT NOT FASTINGP ERFORMED BY: KALPESH [facility] Wzcxdf3646 [facility]in [place] [id number] MCHC (RBC) [Mass/Vol] 34.0 g/dL Normal 31.5-35.7 [facility] prehensive Internal Medicine Work Phone: Comment on above: PATIENT NOT FASTINGP ERFORMED BY: KALPESH [facility] Lxlhsu8103 [facility]in [place] [id number] MCV (RBC) [Entitic vol] 81 fL Normal 79-97 C omprehensive Internal Medicine Work Phone: Comment on above: PATIENT NOT FASTINGP ERFORMED BY: KALPESH [facility] Npohrl5145 Elizabeth [facility] [place] [id number] Platelets (Bld) [#/Vol] 218 {x10E3/uL} Normal 150-450 [facility] Work Phone: Comment on above: PATIENT NOT FASTINGP ERFORMED BY: KALPESH Millan6[address] [facility] [id number] Platelets (Bld) [#/Vol] 218 10*3/uL Normal 150-450 [facility]; [facility] Work Phone: RBC (Bld) [#/Vol] 4.89 {x10E6/uL} Normal 3.77-5.28 [facility] Internal Medicine Work Phone: Comment on above: PATIENT NOT FASTINGP ERFORMED BY: KALPESH Allison Xzdrhe4[address] [facility] [id number] RBC (Bld) [#/Vol] 4.89 10*6/uL Normal 3.77-5.28 [facility] Internal Medicine; [facility] Work Phone: WBC (Bld) [#/Vol] 5.4 {x10E3/uL} Normal 3.4-10.8 [facility] Internal Medicine Work Phone: Comment on above: PATIENT NOT FASTINGP ERFORMED BY: KALPESH Allison Xrkbpb7[address] [facility] [id number] WBC (Bld) [#/Vol] 5.4 10*3/uL Normal 3.4-10.8 [facility] Internal Medicine; [facility] Work Phone: HEPATITIS C ANTIBODY ([id number]) Ordered By: Youth Nutritional Monitor on 10-13-2018 HCV Ab Signal/Cutoff IA [Rel units/Vol] {ratio} Normal 0.0-0.9 [facility] Internal Medicine Work Phone: Comment on above: Negative: < 0.8 Inde terminate: 0.8 - 0.9 Positive: > 0.9 . The CDC recommends that a positive HCV antibody result be followed up with a HCV Nucleic Acid Amplification test (249998). PATIENT NOT FASTINGP ERFORMED BY: KALPESH [facility] Wwnxcf2137 [facility]in [place] [id number] HCV Ab Signal/Cutoff IA [Rel units/Vol] {ratio} Normal 0.0-0.9 [facility]; [facility] Work Phone: HGB A1C ([id number])Ordered By: S ystem Lumber Sticker on 10-13-2018 HbA1c (Bld) [Mass fraction] 4.7 % Abnormal 4.8-5.6 [facility] Work Phone: Comment on above: . Prediabetes: 5.7 - 6.4 Diabetes: >6.4 Glycemic control for adults with diabetes: <7.0 PATIENT NOT FASTINGP ERFORMED BY: CB [facility] Okszlo6448 [facility]in [place] [id number] METABOLIC PANEL, COMPREHENSI VE (21099)Ordered By: Youth Nutritional Monitor on 10-13-2018 Albumin [Mass/Vol] 4.3 g/dL Normal 3.5-5.5 [facility] Internal Medicine Work Phone: Comment on above: PATIENT NOT FASTINGP ERFORMED BY: CB [facility] Hkootk9275 Elizabeth RoadDublin [place] [id number] Albumin/Globulin [Mass ratio] 2.0 {ratio} Normal 1.2-2.2 [facility] Work Phone: Comment on above: PATIENT NOT FASTINGP ERFORMED BY: CB [facility] Bxzbdu7736 Elizabeth Roadblin [place] [id number] ALP [Catalytic activity/Vol] 67 [iU]/L Normal 39-117 [facility] Work Phone: Comment on above: PATIENT NOT FASTINGP ERFORMED BY: CB [facility] Nlhpnt8382 [address] RoadDublin [place] [id number] ALP [Catalytic activity/Vol] 67 U/L Normal 39-117 [facility]; [facility] Work Phone: ALT [Catalytic activity/Vol] 28 [iU]/L Normal 0-32 [facility] Work Phone: Comment on above: PATIENT NOT FASTINGP ERFORMED BY: CB [facility] Klyzsl6457 Elizabeth RoadDublin [place] [id number] ALT [Catalytic activity/Vol] 28 U/L Normal 0-32 [facility]; [facility] Work Phone: AST [Catalytic activity/Vol] 22 [iU]/L Normal 0-40 [facility] Internal Medicine Work Phone: Comment on above: PATIENT NOT FASTINGP ERFORMED BY: CB [facility] Rppvhd8760 Elizabeth RoadDublin [place] [id number] AST [Catalytic activity/Vol] 22 U/L Normal 0-40 [facility] Internal Medicine; [facility] Internal Medicine Work Phone: Bilirubin [Mass/Vol] 0.4 mg/dL Normal 0.0-1.2 [facility] Work Phone: Comment on above: PATIENT NOT FASTINGP ERFORMED BY: CB [facility] Ktyvlw1076 Elizabeth RoadDublin [place] [id number] Calcium [Mass/Vol] 10.2 mg/dL Normal 8.7-10.2 [facility] Internal Medicine Work Phone: Comment on above: PATIENT NOT FASTINGP ERFORMED BY: CB [facility] Exxdyc8363 [address] RoadDublin [place] [id number] Chloride [Moles/Vol] 102 mmol/L Normal 96-106 [facility] Internal Medicine Work Phone: Comment on above: PATIENT NOT FASTINGP ERFORMED BY: [facility] Kjkcaj8076 [address] RoadDublin [place] [id number] CO2 [Moles/Vol] 24 mmol/L Normal 20-29 [facility] Internal Medicine Work Phone: Comment on above: PATIENT NOT FASTINGP ERFORMED BY: CB [facility] Hbiiee2346 [address] RoadDublin [place] [id number] Creatinine [Mass/Vol] 0.99 mg/dL Normal 0.57-1.00 [facility] Internal Medicine Work Phone: Comment on above: PATIENT NOT FASTINGP ERFORMED BY: CB [facility] Ynvetv2317 [address] RoadDublin [place] [id number] GFR/1.73 sq M predicted among blacks CKD-EPI (S/P/Bld) [Vol rate/Area] 75 mL/min/1.73 Normal [facility] Work Phone: Comment on above: PATIENT NOT FASTINGP ERFORMED BY: CB [facility] Sktakf5522 [address] RoadDublin [place] [id number] GFR/1.73 sq M predicted among non-blacks CKD-EPI (S/P/Bld) [Vol rate/Area] 65 mL/min/1.73 Normal [facility] Work Phone: Comment on above: PATIENT NOT FASTINGP ERFORMED BY: CB [facility] Qyehqy7786 [address] RoadDublin [place] [id number] Globulin (S) [Mass/Vol] 2.2 g/dL Normal 1.5-4.5 [facility] Internal Medicine Work Phone: Comment on above: PATIENT NOT FASTINGP ERFORMED BY: CB [facility] Dmlpmb1557 [address] RoadDublin [place] [id number] Glucose [Mass/Vol] 92 mg/dL Normal 65-99 [facility] Internal Medicine Work Phone: Comment on above: PATIENT NOT FASTINGP ERFORMED BY: CB [facility] Ejxsvn7366 [address] RoadDublin [place] [id number] Potassium [Moles/Vol] 4.7 mmol/L Normal 3.5-5.2 [facility] Internal Medicine Work Phone: Comment on above: PATIENT NOT FASTINGP ERFORMED BY: CB [facility] Vfbrmg9684 [address] RoadDublin [place] [id number] Protein [Mass/Vol] 6.5 g/dL Normal 6.0-8.5 [facility] Internal Medicine Work Phone: Comment on above: PATIENT NOT FASTINGP ERFORMED BY: CB [facility] Qzhrby1810 [address] RoadDublin [place] [id number] Sodium [Moles/Vol] 139 mmol/L Normal 134-144 [facility] Internal Medicine Work Phone: Comment on above: PATIENT NOT FASTINGP ERFORMED BY: CB [facility] Pmzrhi5417 [address] RoadDublin [place] [id number] Urea nitrogen [Mass/Vol] 21 mg/dL Normal 6-24 [facility] Work Phone: Comment on above: PATIENT NOT FASTINGP ERFORMED BY: KALPESH Millan6[address] [facility] [id number] Urea nitrogen/Creatinine [Mass ratio] 21 mg/mg Normal 9-23 [facility] Work Phone: Comment on above: PATIENT NOT FASTINGP ERFORMED BY: KALPESH Hilllin[address] [facility] [id number] SED RATE ERYTHROCYTE ([id number]) Ordered By: Youth Nutritional Monitor on 10-13-2018 ESR (Bld) [Velocity] 2 mm/h Normal 0-40 [facility] Internal Medicine Work Phone: Comment on above: PATIENT NOT FASTINGP ERFORMED BY: KALPESH Eddy Hilllin[address] [facility] [id number] Serum Protein Electrophoresi s (SPEP) (98140)Ordered By: Youth Nutritional Monitor on 10-13-2018 Albumin [Mass/Vol] 3.9 g/dL Normal 2.9-4.4 [facility] Internal Medicine Work Phone: Comment on above: PATIENT NOT FASTINGP ERFORMED BY: KALPESH Hilllin[address] [facility] [id number] Albumin/Globulin [Mass ratio] 1.5 {ratio} Normal 0.7-1.7 [facility] Work Phone: Comment on above: PATIENT NOT FASTINGP ERFORMED BY: KALPESH Hilllin[address] [facility] [id number] Alpha 1 globulin Elph [Mass/Vol] 0.1 g/dL Normal 0.0-0.4 [facility] Work Phone: Comment on above: PATIENT NOT FASTINGP ERFORMED BY: KALPESH Hilllin[address] [facility] [id number] Alpha 2 globulin Elph [Mass/Vol] 0.6 g/dL Normal 0.4-1.0 [facility] Work Phone: Comment on above: PATIENT NOT FASTINGP ERFORMED BY: CB [facility] Ddzsih8519 Elizabeth RoadDublin [place] [id number] Beta globulin Elph [Mass/Vol] 1.0 g/dL Normal 0.7-1.3 [facility] Work Phone: Comment on above: PATIENT NOT FASTINGP ERFORMED BY: CB [facility] Zwjapm9104 [address] RoadDublin [place] [id number] Gamma globulin Elph [Mass/Vol] 0.9 g/dL Normal 0.4-1.8 [facility] Work Phone: Comment on above: PATIENT NOT FASTINGP ERFORMED BY: CB [facility] Tqggsm8882 [address] RoadDublin [place] [id number] Globulin (S) [Mass/Vol] 2.6 g/dL Normal 2.2-3.9 C omprehensive Internal Medicine Work Phone: Comment on above: PATIENT NOT FASTINGP ERFORMED BY: CB [facility] Jnflam6370 [facility]bl[facility] [place] [id number] Laboratory comment Jaycob (Report) SPRCS Normal [facility] Work Phone: Comment on above: Protein electrophore sis scan will follow via computer, mail, orcourier delivery. PATIENT NOT FASTINGP ERFORMED BY: CB [facility] Npqmng2849 [address] [facility] HospitalD[place] [id number] Laboratory report . Normal Compreh ensive Internal Medicine Work Phone: Comment on above: PATIENT NOT FASTINGP ERFORMED BY: CB [facility] Dorent3177 [address] [facility]blin [place] [id number] Protein.monoclonal Elph [Mass/Vol] Not Observed Normal [facility] Work Phone: Comment on above: PATIENT NOT FASTINGP ERFORMED BY: CB [facility] Giexgv5249 [address] RoadDublin [place] [id number] TSH (THYROID STIMULATING HOR ROLAND) (32928)Ordered By: Youth Nutritional Monitor on 10-13-2018 TSH Qn 1.880 {uIU/mL} Normal 0.450-4.50 0 [facility] Work Phone: Comment on above: PATIENT NOT FASTINGP ERFORMED BY: [facility] Zvjgbb3771 [facility] [id number] VITAMIN B-12 (CYANOCOBALAMIN ) (14176)Ordered By: Youth Nutritional Monitor on 10-13-2018 Cobalamin (Vitamin B12) [Mass/Vol] 465 pg/mL Normal 232-1245 [facility] Work Phone: Comment on above: PATIENT NOT FASTINGP ERFORMED BY: [facility] Slbtzl1640 [facility] [id number] Pap IG, rfx HPV all pthOrder ed By: Youth Nutritional Monitor on 11-21-2017 Microscopic observation Other stain Nom (Unsp spec) . Normal [facility] Work Phone: Comment on above: Source.............C ervix;EndocervixNo. of containers..01 ThinPrep VialPATIENT NOT FASTINGPERFORMED BY: [employer] Wfqehtlqdx[address] [id number] Information: [id number] Pathology report final diagnosis Narrative SPRCS Normal Comprehensiv e Internal Medicine Work Phone: Comment on above: NEGATIVE FOR INTRAEP ITHELIAL LESION AND MALIGNANCY.REACTIVE CELLULAR CHANGES AND/OR REPAIR ARE PRESENT.CELLULAR CHANGES ASSOCIATED WITH ATROPHY ARE PRESENT.Satisfactory for evaluation. Endocervical component may not bedistinguished in cases of atrophy.Areas of partially obscuring blood are present.Z01.Kory Chung, Institutional Cook (ASCP)Jocelyn Brown MD, Pathologist Source.............C ervix;EndocervixNo. of containers..01 ThinPrep VialPATIENT NOT FASTINGPERFORMED BY: [employer] Coafxpvogw[address] [id number] Information: [id number] Pap IG, rfx HPV all pth PAPSMR Normal C omprehensive Internal Medicine Work Phone: Comment on above: The Pap smear is a s creening test designed to aid in the detection ofpremalignant and malignant conditions of the uterine cervix. It is not adiagnostic procedure and should not be used as the sole means of detectingcervical cancer. Both false-positive and false-negative reports do occur. .This liquid based ThinPrep(R) pap test was screened with theuse of an image guided system.The HPV DNA reflex criteria were not met with this specimen resulttherefore, no HPV testing was performed. . Source.............C ervix;EndocervixNo. of containers..01 ThinPrep VialPATIENT NOT FASTINGPERFORMED BY: [employer] [address] [place] [id number] Information: [id number] CBC W/AUTO DIFF WBC (17647)O rdered By: Youth Nutritional Monitor on 11-18-2017 Basophils #/vol (Bld) 0.0 {x10E3/uL} Normal 0.0-0.2 [facility] Work Phone: Comment on above: PATIENT WAS FASTINGP ERFORMED BY: [employer]70 [facility]Nov[facility] [id number] Basophils (Bld) [#/Vol] 0.0 10*3/uL Normal 0.0-0.2 [facility]; [facility] Work Phone: Basophils Auto #/vol (Bld) 0.0 {x10E3/uL} Normal 0.0-0.2 [facility] Work Phone: Basophils/100 WBC (Bld) 1 % Normal C omprehensive Internal Medicine Work Phone: Comment on above: PATIENT WAS FASTINGP ERFORMED BY: Huupy6370 PhoteticaNov[facility] Health [facility] [id number] Basophils/100 WBC Auto (Bld) 1 % Normal [facility] Work Phone: Eosinophils #/vol (Bld) 0.2 {x10E3/uL} Normal 0.0-0.4 [facility] Work Phone: Comment on above: PATIENT WAS FASTINGP ERFORMED BY: CarbonCure TechnologiesDublin [place] [id number] Eosinophils (Bld) [#/Vol] 0.2 10*3/uL Normal 0.0-0.4 [facility]; [facility] Work Phone: Eosinophils Auto #/vol (Bld) 0.2 {x10E3/uL} Normal 0.0-0.4 [facility] Work Phone: Eosinophils/100 WBC (Bld) 3 % Normal [facility] Work Phone: Comment on above: PATIENT WAS FASTINGP ERFORMED BY: [employer] Fkxymm5835 [facility] [id number] Eosinophils/100 WBC Auto (Bld) 3 % Normal [facility] Work Phone: Erythrocyte distribution width Auto Ratio (RBC) 15.1 % Normal 12.3-15.4 [facility] Internal Medicine Work Phone: Erythrocyte distribution width Ratio (RBC) 15.1 % Normal 12.3-15.4 [facility] Work Phone: Comment on above: PATIENT WAS FASTINGP ERFORMED BY: [employer] Mtcucu9156 [facility] [id number] Hematocrit Auto Volume Fraction (Bld) 39.3 % Normal 34.0-46.6 [facility] Work Phone: Hematocrit Volume Fraction (Bld) 39.3 % Normal 34.0-46.6 [facility] Work Phone: Comment on above: PATIENT WAS FASTINGP ERFORMED BY: A[facility] InformaticsCapital Health System [facility])Lriept4808 [facility] [id number] Hemoglobin mass conc (Bld) 13.6 g/dL Normal 11.1-15.9 [facility] Work Phone: Comment on above: PATIENT WAS FASTINGP ERFORMED BY: Aver InformaticsCapital Health System [facility])Auaddv5476 [facility] [id number] Immature granulocytes #/vol (Bld) 0.0 {x10E3/uL} Normal 0.0-0.1 [facility] Work Phone: Comment on above: PATIENT WAS FASTINGP ERFORMED BY: [place] 6363970 [facility] [id number] Immature granulocytes (Bld) [#/Vol] 0.0 10*3/uL Normal 0.0-0.1 [facility]; [facility] Work Phone: Immature granulocytes/100 WBC (Bld) 0 % Normal [facility] Work Phone: Comment on above: PATIENT WAS FASTINGP ERFORMED BY: [place] 6363970 [facility] [id number] Lymphocytes #/vol (Bld) 2.0 {x10E3/uL} Normal 0.7-3.1 [facility] Work Phone: Comment on above: PATIENT WAS FASTINGP ERFORMED BY: [address] [id number] Lymphocytes (Bld) [#/Vol] 2.0 10*3/uL Normal 0.7-3.1 [facility]; [facility] Work Phone: Lymphocytes Auto #/vol (Bld) 2.0 {x10E3/uL} Normal 0.7-3.1 [facility] Work Phone: Lymphocytes/100 WBC (Bld) 33 % Normal [facility] Work Phone: Comment on above: PATIENT WAS FASTINGP ERFORMED BY: [place] 6363970 [facility] [id number] Lymphocytes/100 WBC Auto (Bld) 33 % Normal [facility] Work Phone: MCH Auto Entitic mass (RBC) 28.3 pg Normal 26.6-33.0 [facility] Work Phone: MCH Entitic mass (RBC) 28.3 pg Normal 26.6-33.0 [facility] Internal Medicine Work Phone: Comment on above: PATIENT WAS FASTINGP ERFORMED BY: [place] 6363970 [facility] [id number] MCHC Auto mass conc (RBC) 34.6 g/dL Normal 31.5-35.7 [facility] Work Phone: MCHC mass conc (RBC) 34.6 g/dL Normal 31.5-35.7 [facility] Internal Medicine Work Phone: Comment on above: PATIENT WAS FASTINGP ERFORMED BY: KALPESH RadionomyInsight Surgical Hospital[address] [facility] [id number] MCV Auto Entitic volume (RBC) 82 fL Normal 79-97 [facility] Work Phone: MCV Entitic volume (RBC) 82 fL Normal 79-97 [facility] Work Phone: Comment on above: PATIENT WAS FASTINGP ERFORMED BY: KALPESH [facility] [facility] [id number] Monocytes #/vol (Bld) 0.3 {x10E3/uL} Normal 0.1-0.9 [facility] Work Phone: Comment on above: PATIENT WAS FASTINGP ERFORMED BY: RadionomyInsight Surgical Hospital[address] [facility] [id number] Monocytes (Bld) [#/Vol] 0.3 10*3/uL Normal 0.1-0.9 [facility]; [facility] Work Phone: Monocytes Auto #/vol (Bld) 0.3 {x10E3/uL} Normal 0.1-0.9 [facility] Work Phone: Monocytes/100 WBC (Bld) 5 % Normal C [facility]mpunm [facility] Internal Medicine Work Phone: Comment on above: PATIENT WAS FASTINGP ERFORMED BY: [place] 63639[address] [facility] [id number] Monocytes/100 WBC Auto (Bld) 5 % Normal [facility] Work Phone: Neutrophils #/vol (Bld) 3.6 {x10E3/uL} Normal 1.4-7.0 [facility] Work Phone: Comment on above: PATIENT WAS FASTINGP ERFORMED BY: KALPESH [place] 2084270 [facility] [id number] Neutrophils (Bld) [#/Vol] 3.6 10*3/uL Normal 1.4-7.0 [facility]; [facility] Work Phone: Neutrophils Auto #/vol (Bld) 3.6 {x10E3/uL} Normal 1.4-7.0 [facility] Work Phone: Neutrophils/100 WBC (Bld) 58 % Normal [facility] Work Phone: Comment on above: PATIENT WAS FASTINGP ERFORMED BY: [facility] [facility] [id number] Neutrophils/100 WBC Auto (Bld) 58 % Normal [facility] Work Phone: Platelets #/vol (Bld) 200 {x10E3/uL} Normal 150-379 [facility] Work Phone: Comment on above: PATIENT WAS FASTINGP ERFORMED BY: KALPESH [facility] [facility] [id number] Platelets (Bld) [#/Vol] 200 10*3/uL Normal 150-379 [facility]; [facility] Work Phone: Platelets Auto #/vol (Bld) 200 {x10E3/uL} Normal 150-379 [facility] Work Phone: RBC #/vol (Bld) 4.80 {x10E6/uL} Normal 3.77-5.28 [facility] Internal Medicine Work Phone: Comment on above: PATIENT WAS FASTINGP ERFORMED BY: [facility] [facility] [id number] RBC (Bld) [#/Vol] 4.80 10*6/uL Normal 3.77-5.28 [facility] Internal Medicine; [facility] Work Phone: RBC Auto #/vol (Bld) 4.80 {x10E6/uL} Normal 3.77-5.28 [facility] Work Phone: WBC #/vol (Bld) 6.1 {x10E3/uL} Normal 3.4-10.8 Compr ehensive Internal Medicine Work Phone: Comment on above: PATIENT WAS FASTINGP ERFORMED BY: KALPESH [facility] [place] [facility] [place] [id number] WBC (Bld) [#/Vol] 6.1 10*3/uL Normal 3.4-10.8 Compre hensive Internal Medicine; [facility] Work Phone: WBC Auto #/vol (Bld) 6.1 {x10E3/uL} Normal 3.4-10.8 [facility] Work Phone: HGB A1C ([id number])Ordered By: S ystem Lumber Sticker on 11-18-2017 Hemoglobin A1c/Hemoglobin.total mass fraction (Bld) 4.9 % Normal 4.8-5.6 Comprehensiv e Internal Medicine Work Phone: Comment on above: . Pre-diabetes: 5.7 - 6.4 Diabetes: >6.4 Glycemic control for adults with diabetes: <7.0 PATIENT WAS FASTINGP ERFORMED BY: KALPESH LabAlexia Qhylow[address] [facility] [id number] LIPID PANEL ([id number])Ordered B y: Youth Nutritional Monitor on 11-18-2017 Cholesterol in HDL mass conc 40 mg/dL Normal [facility] Work Phone: Comment on above: PATIENT WAS FASTINGP ERFORMED BY: KALPESH [facility] Idxnto[address] [facility] [id number] Cholesterol in LDL mass conc 102 mg/dL Abnormal 0-99 [facility] Work Phone: Comment on above: PATIENT WAS FASTINGP ERFORMED BY: KALPESH [facility] Ucmocs[address] [facility] [id number] Cholesterol in LDL/Cholesterol in HDL mass ratio 2.6 {ratio} Normal 0.0-3.2 [facility] Work Phone: Comment on above: LDL/HDL Ratio Men Wo men 1/2 Avg.Risk 1.0 1.5 Avg.Risk 3.6 3.2 2X Avg.Risk 6.2 5.0 3X Avg.Risk 8.0 6.1 PATIENT WAS FASTINGP ERFORMED BY: KALPESH LabAlexia Iwczir[address] [facility] [id number] Cholesterol in VLDL mass conc 18 mg/dL Normal 5-40 [facility] Work Phone: Comment on above: PATIENT WAS FASTINGP ERFORMED BY: KALPESH LabAlexia HillOqbeyb2857 [facility] [place] [id number] Cholesterol mass conc 160 mg/dL Normal 100-199 Com prehensive Internal Medicine Work Phone: Comment on above: PATIENT WAS FASTINGP ERFORMED BY: KALPESH LabAlexia HillKqthak[address] [facility] [id number] Triglyceride mass conc 89 mg/dL Normal 0-149 Co mprehensive [facility] Medicine Work Phone: Comment on above: PATIENT WAS FASTINGP ERFORMED BY: KALPESH Hilllin[address] [facility] [id number] METABOLIC PANEL, COMPREHENSI VE ([id number])Ordered By: Youth Nutritional Monitor on 11-18-2017 Albumin mass conc 4.3 g/dL Normal 3.5-5.5 Compreh ensive Internal Medicine Work Phone: Comment on above: PATIENT WAS FASTINGP ERFORMED BY: KALPESH Hilllin[address] [facility] [id number] Albumin/Globulin mass ratio 2.0 {ratio} Normal 1.2-2.2 [facility] Work Phone: Comment on above: PATIENT WAS FASTINGP ERFORMED BY: KALPESH [facility] Pozvsd[address] [facility] [id number] ALP [Catalytic activity/Vol] 74 U/L Normal 39-117 [facility]; [facility] Work Phone: ALP enzyme act/vol 74 [iU]/L Normal 39-117 Compre hensive Internal Medicine Work Phone: Comment on above: PATIENT WAS FASTINGP ERFORMED BY: KALPESH LabAlexia HillCwfcux3943 [facility] [place] [id number] ALT [Catalytic activity/Vol] 17 U/L Normal 0-32 [facility]; [facility] Internal Medicine Work Phone: ALT enzyme act/vol 17 [iU]/L Normal 0-32 [facility] Internal Medicine Work Phone: Comment on above: PATIENT WAS FASTINGP ERFORMED BY: KALPESH [facility] Kbhiuf5315 [address] RoadDublin [place] [id number] AST [Catalytic activity/Vol] 17 U/L Normal 0-40 [facility] Internal Medicine; [facility] Internal Medicine Work Phone: AST enzyme act/vol 17 [iU]/L Normal 0-40 [facility] Internal Medicine Work Phone: Comment on above: PATIENT WAS FASTINGP ERFORMED BY: KALPESH LabCocelena HillFykhpu7556 Elizabeth RoadDublin [place] [id number] Bilirubin mass conc 0.4 mg/dL Normal 0.0-1.2 [facility] Internal Medicine Work Phone: Comment on above: PATIENT WAS FASTINGP ERFORMED BY: KALPESH [facility] Pryvfb6240 [address] RoadDublin [place] [id number] Calcium mass conc 9.8 mg/dL Normal 8.7-10.2 Compreh [facility] Work Phone: Comment on above: PATIENT WAS FASTINGP ERFORMED BY: KALPESH LabAlexia HillJrqyyc1992 [address] RoadDublin [place] [id number] Chloride molar conc 103 mmol/L Normal 96-106 Compr [facility] Internal Medicine Work Phone: Comment on above: PATIENT WAS FASTINGP ERFORMED BY: KALPESH [facility] Ylwknk4150 [address] RoadDublin [place] [id number] CO2 molar conc 23 mmol/L Normal 20-29 Comprehens [facility] Internal Medicine Work Phone: Comment on above: PATIENT WAS FASTINGP ERFORMED BY: KALPESH [facility] Tcmdsg7016 [address] RoadDublin [place] [id number] Creatinine mass conc 0.98 mg/dL Normal 0.57-1.00 [facility] Work Phone: Comment on above: PATIENT WAS FASTINGP ERFORMED BY: KALPESH LabAlexia HillTojmvt2897 Elizabeth Roadblin [place] [id number] GFR/1.73 sq M predicted among blacks CKD-EPI vol rate/area (S/P/Bld) 77 mL/min/1.73 Normal Comprehensiv e Internal Medicine Work Phone: Comment on above: PATIENT WAS FASTINGP ERFORMED BY: KALPESH LabAlexia HillQsvelv6013 [address] Roadblin [place] [id number] GFR/1.73 sq M predicted among non-blacks CKD-EPI vol rate/area (S/P/Bld) 67 mL/min/1.73 Normal Comprehe nsive Internal Medicine Work Phone: Comment on above: PATIENT WAS FASTINGP ERFORMED BY: KALPESH Hilllin6370 [facility] [id number] Globulin Calculated mass conc (S) 2.2 g/dL Normal 1.5-4.5 [facility] Work Phone: Globulin mass conc (S) 2.2 g/dL Normal 1.5-4.5 Co mprehensive Internal Medicine Work Phone: Comment on above: PATIENT WAS FASTINGP ERFORMED BY: KALPESH Hilllin[address] [facility] [id number] Glucose mass conc 99 mg/dL Normal 65-99 Compreh ensive Internal Medicine Work Phone: Comment on above: PATIENT WAS FASTINGP ERFORMED BY: KALPESH Hilllin[address] [facility] [id number] Potassium molar conc 3.8 mmol/L Normal 3.5-5.2 Comp rehensive Internal Medicine Work Phone: Comment on above: PATIENT WAS FASTINGP ERFORMED BY: KALPESH LabAlexia HillVyybcn5537 [facility] [id number] Protein mass conc 6.5 g/dL Normal 6.0-8.5 Compreh ensive Internal Medicine Work Phone: Comment on above: PATIENT WAS FASTINGP ERFORMED BY: KALPESH LabAlexia HillPssolz4236 [facility] [id number] Sodium molar conc 139 mmol/L Normal 134-144 Compreh ensive Internal Medicine Work Phone: Comment on above: PATIENT WAS FASTINGP ERFORMED BY: KALPESH LabCocelena Aznaha3228 [facility] [id number] Urea nitrogen mass conc 19 mg/dL Normal 6-24 C omprehensive Internal Medicine Work Phone: Comment on above: PATIENT WAS FASTINGP ERFORMED BY: KALPESH LabCo Xyqknd3985 [facility] [id number] Urea nitrogen/Creatinine mass ratio 19 mg/mg Normal 9-23 [facility] Work Phone: Comment on above: PATIENT WAS FASTINGP ERFORMED BY: KALPESH LabBritt Fdvnyf[address] [facility] [id number] MICROALBUMINOrdered By: Syst em Lumber Sticker on 11-18-2017 Albumin DL <= 20 mg/L mass conc (U) 6.9 ug/mL Normal [facility] Work Phone: Comment on above: PATIENT WAS FASTINGP ERFORMED BY: KALPESH [facility] Bmpchb[address] [facility] [id number] Albumin/Creatinine mass ratio (U) 4.5 {mg/g_creat} Normal 0.0-30.0 [facility] Work Phone: Comment on above: PATIENT WAS FASTINGP ERFORMED BY: KALPESH [facility] Fpmijy[address] [facility] [id number] Creatinine mass conc (U) 152.7 mg/dL Normal [facility] Work Phone: Comment on above: PATIENT WAS FASTINGP ERFORMED BY: KALPESH [facility] Ajdnex[address] [facility] [id number] Microscopic ExaminationOrder ed By: Youth Nutritional Monitor on 11-18-2017 Bacteria LM.HPF #/area (Urine sed) Few Normal [facility] Work Phone: Comment on above: PATIENT WAS FASTINGP ERFORMED BY: KALPESH LabCo Uozmka4917 [facility] [id number] Epithelial cells LM.HPF #/area (Urine sed) 0-10 Normal 0 - 10 [facility] Work Phone: Comment on above: PATIENT WAS FASTINGP ERFORMED BY: CB [facility] Kdliur9152 [address] RoadDublin [place] [id number] Mucus LM Ql (Urine sed) Present Normal C omprehensive Internal Medicine Work Phone: Mucus Ql (Urine sed) Present Normal Comp rehensive Internal Medicine Work Phone: Comment on above: PATIENT WAS FASTINGP ERFORMED BY: CB [facility] Jbdlvf4155 [address] RoadDublin [place] [id number] RBC LM.HPF #/area (Urine sed) 0-2 Normal 0 - 2 [facility] Work Phone: Comment on above: PATIENT WAS FASTINGP ERFORMED BY: CB [facility] Svmypb6621 [address] RoadDublin [place] [id number] WBC LM.HPF #/area (Urine sed) 0-5 Normal 0 - 5 [facility] Work Phone: Comment on above: PATIENT WAS FASTINGP ERFORMED BY: KALPESH [facility] Ubkenq5130 [address] RoadDublin [place] [id number] TSH ([id number])Ordered By: Syste m Lumber Sticker on 11-18-2017 Thyrotropin Qn 2.690 {uIU/mL} Normal 0.450-4.50 0 [facility] Work Phone: Comment on above: PATIENT WAS FASTINGP ERFORMED BY: CB [facility] Vvgdda2365 [address] RoadDublin [place] [id number] URINALYSIS, W/ MICRO ([id number]) Ordered By: Youth Nutritional Monitor on 11-18-2017 Appearance Nom (U) Clear Normal Compre hensive Internal Medicine Work Phone: Comment on above: PATIENT WAS FASTINGP ERFORMED BY: CB [facility] Kkjrlb5158 [address] RoadDublin [place] [id number] Bilirubin Ql (U) Negative Normal Comprehe nsive Internal Medicine Work Phone: Comment on above: PATIENT WAS FASTINGP ERFORMED BY: CB [facility] Dodnmu1352 [address] RoadDublin [place] [id number] Bilirubin Ql (U) Negative Normal Comprehe nsive Internal Medicine; [facility] Work Phone: Color Nom (U) Yellow Normal Comprehensi ve Internal Medicine Work Phone: Comment on above: PATIENT WAS FASTINGP ERFORMED BY: KALPESH Millan6[address] RoadD[address] [place] [id number] Glucose Ql (U) Negative Normal Comprehens delia Internal Medicine Work Phone: Comment on above: PATIENT WAS FASTINGP ERFORMED BY: KALPESH Millan6370 [address] RoadDuin [place] [id number] Glucose Ql (U) Negative Normal Comprehens delia Internal Medicine; [facility] Work Phone: Hemoglobin Ql (U) Negative Normal Compreh ensive Internal Medicine Work Phone: Comment on above: PATIENT WAS FASTINGP ERFORMED BY: KALPESH Millan6370 [facility]Nov[facility] [id number] Hemoglobin Ql (U) Negative Normal Compreh ensive Internal Medicine; [facility] Work Phone: Hemoglobin Test strip Ql (U) Negative Normal [facility] Work Phone: Ketones Ql (U) Negative Normal Comprehens delia Internal Medicine Work Phone: Comment on above: PATIENT WAS FASTINGP ERFORMED BY: KALPESH Millan6370 [facility] RoadNov[facility] [id number] Ketones Ql (U) Negative Normal Comprehens delia Internal Medicine; [facility] Work Phone: Leukocyte esterase Test strip Ql (U) Negative Normal [facility] Work Phone: Comment on above: PATIENT WAS FASTINGP ERFORMED BY: KALPESH Hilllin6[address] RoadLifecare Hospitals [facility] [place]ain [place] [id number] Leukocyte esterase Test strip Ql (U) Negative Normal [facility]; [facility] Work Phone: Microscopic observation LM Nom (Urine sed) MICRON Normal [facility] Work Phone: Comment on above: Microscopic follows if indicated. PATIENT WAS FASTINGP ERFORMED BY: KALPESH LabCocelena Kukngg7398 [address] RoadDublin [place] [id number] Microscopic observation LM Nom (Urine sed) See below: Normal [facility] Work Phone: Comment on above: Microscopic was angie cated and was performed. PATIENT WAS FASTINGP ERFORMED BY: KALPESH [facility] Weamzd9792 [address] RoadDublin [place] [id number] Nitrite Ql (U) Negative Normal Comprehens delia Internal Medicine Work Phone: Comment on above: PATIENT WAS FASTINGP ERFORMED BY: KALPESH [facility] Qmeuln5768 [address] RoadDublin [place] [id number] Nitrite Ql (U) Negative Normal Comprehens delia Internal Medicine; [facility] Work Phone: Nitrite Test strip Ql (U) Negative Normal [facility] Work Phone: pH (U) 5.0 [pH] Normal 5.0-7.5 [facility] Work Phone: Comment on above: PATIENT WAS FASTINGP ERFORMED BY: KALPESH [facility] Azuwig7987 [address] RoadDublin [place] [id number] pH Test strip (U) 5.0 [pH] Normal 5.0-7.5 Compreh ensive Internal Medicine Work Phone: Protein Ql (U) Negative Normal Comprehens delia Internal Medicine Work Phone: Comment on above: PATIENT WAS FASTINGP ERFORMED BY: KALPESH [facility] Pdgxqy2213 [address] RoadDublin [place] [id number] Protein Ql (U) Negative Normal Comprehens delia Internal Medicine; [facility] Work Phone: Protein Test strip Ql (U) Negative Normal [facility] Work Phone: Specific gravity Relative Density (U) 1.023 1 Normal 1.005-1.03 0 [facility] Work Phone: Comment on above: PATIENT WAS FASTINGP ERFORMED BY: KALPESH [facility] Wbkvsl7024 [address] RoadDublin [place] [id number] Urobilinogen (U) [Mass/Vol] 0.2 mg/dL Normal 0.2-1.0 [facility]; [facility] Work Phone: Urobilinogen Test strip mass conc (U) 0.2 mg/dL Normal 0.2-1.0 [facility] Work Phone: Comment on above: PATIENT WAS FASTINGP ERFORMED BY: [facility]Co[facility]Rodgdo[address] [facility] [id number] CBC W/Diff, AutomatedOrdered By: Youth Nutritional Monitor on 04-22-2016 Absolute Lymph 1.74 {X10_3/ul} Normal 0.83-4.51 Compr ehensive Internal Medicine Work Phone: Absolute Neut 5.2 {X10_3/uL} Normal 2.0-7.7 Compreh ensive Internal Medicine Work Phone: Comment on above: [facility] [address] [place], [address] Basophils/100 WBC (Bld) 0.3 % Normal 0-1 C omprehensive Internal Medicine Work Phone: Comment on above: [facility] [address] [place], [address] Basophils/100 WBC Auto (Bld) 0.3 % Normal 0-1 [facility] Work Phone: Eosinophils/100 WBC (Bld) 2.1 % Normal 0-5 [facility] Work Phone: Comment on above: [facility] [address] [place], [address] Eosinophils/100 WBC Auto (Bld) 2.1 % Normal 0-5 [facility] Work Phone: Erythrocyte distribution width Auto Ratio (RBC) 13.5 % Normal 11.6-14.6 Comprehen sive Internal Medicine Work Phone: Erythrocyte distribution width Ratio (RBC) 13.5 % Normal 11.6-14.6 [facility] Work Phone: Comment on above: [place] [id number] [place], [place], [phone] Hematocrit Auto Volume Fraction (Bld) 39.0 % Normal 37-47 [facility] Work Phone: Hematocrit Volume Fraction (Bld) 39.0 % Normal 37-47 [facility] Work Phone: Comment on above: [place] [address] [place], [address] Hemoglobin mass conc (Bld) 14.0 g/dL Normal 12.0-15.0 [facility] Work Phone: Comment on above: [place] [address] [place], [address] IM GRAN % 0.100 % Normal 0.0-0.9 [facility] Work Phone: Comment on above: IG% - Immature Granu locytes (promyelocytes, myelocytes andmetamyelocytes) > 1% indicates that a LEFT SHIFT is Present. [place] [address] [place], [place], [phone] Lymphocytes #/vol (Bld) 1.74 {X10_3/ul} Normal 0.83-4. 51 [facility] Work Phone: Comment on above: [place] [address] [place], [address] Lymphocytes/100 WBC (Bld) 23.3 % Normal 19-41 [facility] Work Phone: Comment on above: [facility] [address] [place], [address] Lymphocytes/100 WBC Auto (Bld) 23.3 % Normal 19-41 [facility] Work Phone: MCH Auto Entitic mass (RBC) 28.2 pg Normal 27.0-32.0 [facility] Work Phone: MCH Entitic mass (RBC) 28.2 pg Normal 27.0-32.0 Co mprehensive [facility] Medicine Work Phone: Comment on above: [facility] [address] [place], [address] MCHC Auto mass conc (RBC) 35.9 {g/gl} Normal 32-36 [facility] Work Phone: MCHC mass conc (RBC) 35.9 {g/gl} Normal 32-36 [facility] prehensive Internal Medicine Work Phone: Comment on above: [facility] [address] [place], [address] MCV Auto Entitic volume (RBC) 78.5 fL Abnormal 81-99 [facility] Work Phone: MCV Entitic volume (RBC) 78.5 fL Abnormal 81-99 [facility] Work Phone: Comment on above: [facility] [address] [place], [address] Monocytes/100 WBC Auto (Bld) 5.1 % Normal 0-10 [facility] Work Phone: Comment on above: [facility] [address] [place], [address] Monocytes/100 WBC Auto (Bld) 5.1 % Normal 0-10 [facility] Work Phone: Neutrophils/100 WBC (Bld) 69.1 % Normal 47-70 [facility] Work Phone: Comment on above: [facility] [address] [place], [address] Neutrophils/100 WBC Auto (Bld) 69.1 % Normal 47-70 [facility] Work Phone: Platelet mean volume Auto Entitic volume (Bld) 10.2 fL Normal 6.2-12.0 [facility] Work Phone: Platelet mean volume Entitic volume (Bld) 10.2 fL Normal 6.2-12.0 Comprehensi ve Internal Medicine Work Phone: Comment on above: [facility] [address] [place], [address] Platelets #/vol (Bld) 213 10*3/uL Normal 150-450 [facility]alehens[facility] Work Phone: Comment on above: [facility] [address] [place], [address] Platelets Auto #/vol (Bld) 213 10*3/uL Normal 150-450 [facility] Work Phone: RBC #/vol (Bld) 4.97 {M/mm3} Normal 4.2-5.4 Compreh ensive Internal Medicine Work Phone: Comment on above: [facility] [address] [place], [address] RBC Auto #/vol (Bld) 4.97 {M/mm3} Normal 4.2-5.4 [facility]alehens[facility] Work Phone: RDW SD 38.1 fL Normal 35.1-43.9 [facility] Work Phone: Comment on above: [facility] [address] [place], [address] WBC #/vol (Bld) 7.5 10*3/uL Normal 4.4-11.0 Comprehe nsive Internal Medicine Work Phone: Comment on above: [facility] [address] [place], [address] WBC Auto #/vol (Bld) 7.5 10*3/uL Normal 4.4-11.0 Com prehensive Internal Medicine Work Phone: CBC W/Diff, Automated 1.74 {X10_3/ul} Normal 0.83-4.51 [facility] Work Phone: CBC W/Diff, Automated 38.1 fL Normal 35.1-43.9 [facility] prehensive Internal Medicine Work Phone: CBC W/Diff, Automated 5.2 {X10_3/uL} Normal 2.0-7.7 [facility] Work Phone: CBC W/Diff, Automated 0.100 % Normal 0.0-0.9 [facility] prehensive Internal Medicine Work Phone: Comment on above: IG% - Immature Granu locytes (promyelocytes, myelocytes andmetamyelocytes) > 1% indicates that a LEFT SHIFT is Present. Comprehensive Metabolic Prof ilOrdered By: Youth Nutritional Monitor on 04-22-2016 Comprehensive metabolic 2000 panel 19 U/L Normal 12-78 [facility] Work Phone: Comment on above: 'TROP' Serial specim en #1, #2, #3, or #4: [address] [place] [address] [place], [address] Comprehensive metabolic 2000 panel 10 1 Normal 5-15 [facility] Work Phone: Comment on above: 'TROP' Serial specim en #1, #2, #3, or #4: [address] [place] [address] [place], [address] Comprehensive metabolic 2000 panel 3.9 g/dL Normal 3.4-5.0 [facility] Work Phone: Comment on above: 'TROP' Serial specim en #1, #2, #3, or #4: [address] [place] [address] [place], [place], [id number] Comprehensive metabolic 2000 panel 7.0 g/dL Normal 6.4-8.2 [facility] Work Phone: Comment on above: 'TROP' Serial specim en #1, #2, #3, or #4: [address] [place] [address] [place], [address] Comprehensive metabolic 2000 panel 3.1 g/dL Normal 2.3-3.5 [facility] Work Phone: Comment on above: 'TROP' Serial specim en #1, #2, #3, or #4: [address] [place] [address] [place], [place], [phone] Comprehensive metabolic 2000 panel 9.5 mg/dL Normal 8.5-10.1 [facility] Work Phone: Comment on above: 'TROP' Serial specim en #1, #2, #3, or #4: [address] [place] [address] [place], [place], [id number] Comprehensive metabolic 2000 panel 12 U/L Abnormal 15-37 [facility] Work Phone: Comment on above: 'TROP' Serial specim en #1, #2, #3, or #4: [address] [place] [address] [place], [place], [id number] Comprehensive metabolic 2000 panel 24.0 mmol/L Normal 21.0-32.0 [facility] Work Phone: Comment on above: 'TROP' Serial specim en #1, #2, #3, or #4: [address] [place] [address] [place], [place], [phone] Comprehensive metabolic 2000 panel 16.2 {RATIO} Normal 10-20 [facility] Work Phone: Comment on above: 'TROP' Serial specim en #1, #2, #3, or #4: [address] [place] [address] [place], [place], [id number] Comprehensive metabolic 2000 panel 105 mmol/L Normal 98-107 [facility] Work Phone: Comment on above: 'TROP' Serial specim en #1, #2, #3, or #4: [address] [place] [address] [place], [place], [phone] Comprehensive metabolic 2000 panel 59.30 ml/min Normal [facility] Work Phone: Comment on above: 'TROP' Serial specim en #1, #2, #3, or #4: [address] [place] [address] [place], [place], [id number] Comprehensive metabolic 2000 panel 77 mL/min Normal [facility] Work Phone: Comment on above: GFR Calc 'TROP' Serial specim en #1, #2, #3, or #4: [address] [place] [address] [place], [place], [id number] Comprehensive metabolic 2000 panel 63 mL/min Normal [facility] Work Phone: Comment on above: Non- GFR Calc 'TROP' Serial specim en #1, #2, #3, or #4: [address] [place] [address] [place], [place], [id number] Comprehensive metabolic 2000 panel 0.98 mg/dL Normal 0.55-1.02 [facility] Work Phone: Comment on above: The validity of the calculated GFR AND GFRAA in patients over70 years has not been determined. Clinical correlation isessential. 'TROP' Serial specim en #1, #2, #3, or #4: [address] [place] [address] [place], [place], [id number] Comprehensive metabolic 2000 panel 3.6 mmol/L Normal 3.5-5.1 [facility] Work Phone: Comment on above: 'TROP' Serial specim en #1, #2, #3, or #4: [address] [place] [address] [place], [address] Comprehensive metabolic 2000 panel 139 mmol/L Normal 136-145 [facility] Work Phone: Comment on above: 'TROP' Serial specim en #1, #2, #3, or #4: [address] [place] [address] [place], [place], [id number] Comprehensive metabolic 2000 panel 0.60 mg/dL Normal 0.20-1.00 [facility] Work Phone: Comment on above: 'TROP' Serial specim en #1, #2, #3, or #4: [address] [place] [address] [place], [place], [id number] Comprehensive metabolic 2000 panel 16 mg/dL Normal 7-18 [facility] Work Phone: Comment on above: 'TROP' Serial specim en #1, #2, #3, or #4: [address] [place] [address] [place], [place], [id number] Comprehensive metabolic 2000 panel 130 mg/dL Abnormal 70-110 [facility] Work Phone: Comment on above: Fasting Glucose resu lt greater than or equal to 126 mg/dLsuggests DIABETES MELLITUS per A.D.A. criteria. 'TROP' Serial specim en #1, #2, #3, or #4: [address] [place] [address] [place], [place], [id number] Comprehensive metabolic 2000 panel 68 U/L Normal 45-117 [facility] Work Phone: Comment on above: 'TROP' Serial specim en #1, #2, #3, or #4: [address] [place] [address] [place], [place], [phone] Comprehensive metabolic 2000 panel 1.3 {RATIO} Normal 0.9-2.4 [facility] Work Phone: Comment on above: 'TROP' Serial specim en #1, #2, #3, or #4: [address] [place] [address] [place], [place], [id number] LipaseOrdered By: System Man ager on 04-22-2016 Lipase enzyme act/vol 122 U/L Normal 73-393 Com prehensive Internal Medicine Work Phone: Comment on above: 'TROP' Serial specim en #1, #2, #3, or #4: [address] [place] [address] [place], [address] Troponin-IOrdered By: Youth Nutritional Monitor on 04-22-2016 Troponin I.cardiac mass conc ng/mL Normal [facility] Work Phone: Comment on above: TROPONIN-I EXPECTED VALUES <0.05 NEGATIVE 0.06 - 0.59 AT RISK OF [place] > OR = 0.60 SUGGEST [place] 'TROP' Serial specim en #1, #2, #3, or #4: [address] [place] [address] [address] [place], [address] CALCIFEDIOL ([id number])Ordered B y: Youth Nutritional Monitor on 04-07-2016 25-Hydroxyvitamin D2+25-Hydroxyvitamin D3 mass conc 28.4 ng/mL Abnormal 30.0-100.0 [facility] Work Phone: Comment on above: Vitamin D deficiency has been defined by the Jackson ofMedicine and an Endocrine Society practice guideline as alevel of serum 25-OH vitamin D less than 20 ng/mL (1,2).The Endocrine Society went on to further define vitamin Dinsufficiency as a level between 21 and 29 ng/mL (2).1. IOM (Jackson of Medicine). 2010. Dietary reference intakes for calcium and D. [place]: The National Academies Press.2. Silke MF, Juve NC, Zaria GONZALEZ, et al. Evaluation, treatment, and prevention of vitamin D deficiency: an Endocrine Society clinical practice guideline. JCEM. 2010; 96(7):1911-30. PATIENT WAS FASTINGP ERFORMED BY: [facility] ProductsOwensboro Health Regional Hospital [id number] CBC with auto diff ([id number])Or dered By: Youth Nutritional Monitor on 04-07-2016 Basophils #/vol (Bld) 0.0 {x10E3/uL} Normal 0.0-0.2 [facility] Work Phone: Comment on above: PATIENT WAS FASTINGP ERFORMED BY: [facility] CodeNov[facility] [id number] Basophils (Bld) [#/Vol] 0.0 10*3/uL Normal 0.0-0.2 [facility]; [facility] Work Phone: Basophils Auto #/vol (Bld) 0.0 {x10E3/uL} Normal 0.0-0.2 [facility] Work Phone: Basophils/100 WBC (Bld) 0 % Normal C omprehensive Internal Medicine Work Phone: Comment on above: PATIENT WAS FASTINGP ERFORMED BY: KALPESH [employer]70 Elizabeth Sadra MedicalNovant Health / [facility] [id number] Basophils/100 WBC Auto (Bld) 0 % Normal [facility] Work Phone: Eosinophils #/vol (Bld) 0.1 {x10E3/uL} Normal 0.0-0.4 [facility] Work Phone: Comment on above: PATIENT WAS FASTINGP ERFORMED BY: KALPESH [employer]70 EcoSwarmNovant Health / [facility] [id number] Eosinophils (Bld) [#/Vol] 0.1 10*3/uL Normal 0.0-0.4 [facility]; [facility] Work Phone: Eosinophils Auto #/vol (Bld) 0.1 {x10E3/uL} Normal 0.0-0.4 [facility] Work Phone: Eosinophils/100 WBC (Bld) 2 % Normal [facility] Work Phone: Comment on above: PATIENT WAS FASTINGP ERFORMED BY: [employer]70 Elizabeth EdRoverNovant Health [facility] [id number] Eosinophils/100 WBC Auto (Bld) 2 % Normal [facility] Work Phone: Erythrocyte distribution width Auto Ratio (RBC) 14.7 % Normal 12.3-15.4 Comprehen [facility] Internal Medicine Work Phone: Erythrocyte distribution width Ratio (RBC) 14.7 % Normal 12.3-15.4 [facility] Work Phone: Comment on above: PATIENT WAS FASTINGP ERFORMED BY: [employer]70 EcoSwarmNovant Health / [facility] [id number] Hematocrit Auto Volume Fraction (Bld) 41.8 % Normal 34.0-46.6 [facility] Work Phone: Hematocrit Volume Fraction (Bld) 41.8 % Normal 34.0-46.6 [facility] Work Phone: Comment on above: PATIENT WAS FASTINGP ERFORMED BY: [facility] [facility] [id number] Hemoglobin mass conc (Bld) 14.2 g/dL Normal 11.1-15.9 [facility] Work Phone: Comment on above: PATIENT WAS FASTINGP ERFORMED BY: [place] [id number] [facility] [id number] Immature granulocytes #/vol (Bld) 0.0 {x10E3/uL} Normal 0.0-0.1 [facility] Work Phone: Comment on above: PATIENT WAS FASTINGP ERFORMED BY: [place] [id number] [facility] [id number] Immature granulocytes (Bld) [#/Vol] 0.0 10*3/uL Normal 0.0-0.1 [facility]; [facility] Work Phone: Immature granulocytes/100 WBC (Bld) 0 % Normal [facility] Work Phone: Comment on above: PATIENT WAS FASTINGP ERFORMED BY: [facility] [facility] [id number] Lymphocytes #/vol (Bld) 1.5 {x10E3/uL} Normal 0.7-3.1 [facility] Work Phone: Comment on above: PATIENT WAS FASTINGP ERFORMED BY: [facility] [facility] [id number] Lymphocytes (Bld) [#/Vol] 1.5 10*3/uL Normal 0.7-3.1 [facility]; [facility] Work Phone: Lymphocytes Auto #/vol (Bld) 1.5 {x10E3/uL} Normal 0.7-3.1 [facility] Work Phone: Lymphocytes/100 WBC (Bld) 31 % Normal [facility] Work Phone: Comment on above: PATIENT WAS FASTINGP ERFORMED BY: KALPESH [facility] SystemsAlexia HillUvvxlj64[address] [facility] [id number] Lymphocytes/100 WBC Auto (Bld) 31 % Normal [facility] Work Phone: MCH Auto Entitic mass (RBC) 27.7 pg Normal 26.6-33.0 [facility] Work Phone: MCH Entitic mass (RBC) 27.7 pg Normal 26.6-33.0 Co [facility] Internal Medicine Work Phone: Comment on above: PATIENT WAS FASTINGP ERFORMED BY: KALPESH Hilllin[address] [facility] [id number] MCHC Auto mass conc (RBC) 34.0 g/dL Normal 31.5-35.7 [facility] Work Phone: MCHC mass conc (RBC) 34.0 g/dL Normal 31.5-35.7 [facility] Internal Medicine Work Phone: Comment on above: PATIENT WAS FASTINGP ERFORMED BY: KALPESH Hilllin[address] [facility] [id number] MCV Auto Entitic volume (RBC) 82 fL Normal 79-97 [facility] Work Phone: MCV Entitic volume (RBC) 82 fL Normal 79-97 [facility] Work Phone: Comment on above: PATIENT WAS FASTINGP ERFORMED BY: KALPESH [facility] [facility] [id number] Monocytes #/vol (Bld) 0.2 {x10E3/uL} Normal 0.1-0.9 [facility] Work Phone: Comment on above: PATIENT WAS FASTINGP ERFORMED BY: KALPESH [facility] [facility] [id number] Monocytes (Bld) [#/Vol] 0.2 10*3/uL Normal 0.1-0.9 [facility]; [facility] Work Phone: Monocytes Auto #/vol (Bld) 0.2 {x10E3/uL} Normal 0.1-0.9 [facility] Work Phone: Monocytes/100 WBC (Bld) 5 % Normal C omprehensive Internal Medicine Work Phone: Comment on above: PATIENT WAS FASTINGP ERFORMED BY: KALPESH [place] [address] [facility] [id number] Monocytes/100 WBC Auto (Bld) 5 % Normal [facility] Work Phone: Neutrophils #/vol (Bld) 3.1 {x10E3/uL} Normal 1.4-7.0 [facility] Work Phone: Comment on above: PATIENT WAS FASTINGP ERFORMED BY: KALPESH [place] [address] [facility] [id number] Neutrophils (Bld) [#/Vol] 3.1 10*3/uL Normal 1.4-7.0 [facility]; [facility] Work Phone: Neutrophils Auto #/vol (Bld) 3.1 {x10E3/uL} Normal 1.4-7.0 [facility] Work Phone: Neutrophils/100 WBC (Bld) 62 % Normal [facility] Work Phone: Comment on above: PATIENT WAS FASTINGP ERFORMED BY: [address] [id number] Neutrophils/100 WBC Auto (Bld) 62 % Normal [facility] Work Phone: Platelets #/vol (Bld) 178 {x10E3/uL} Normal 150-379 [facility] Work Phone: Comment on above: PATIENT WAS FASTINGP ERFORMED BY: [address] [id number] Platelets (Bld) [#/Vol] 178 10*3/uL Normal 150-379 [facility]; [facility] Work Phone: Platelets Auto #/vol (Bld) 178 {x10E3/uL} Normal 150-379 [facility] Work Phone: RBC #/vol (Bld) 5.13 {x10E6/uL} Normal 3.77-5.28 [facility] Internal Medicine Work Phone: Comment on above: PATIENT WAS FASTINGP ERFORMED BY: KALPESH Rockwell CollinsNovant Health / [facility] [id number] RBC (Bld) [#/Vol] 5.13 10*6/uL Normal 3.77-5.28 [facility] Internal Medicine; [facility] Work Phone: RBC Auto #/vol (Bld) 5.13 {x10E6/uL} Normal 3.77-5.28 [facility] Internal Medicine Work Phone: WBC #/vol (Bld) 5.0 {x10E3/uL} Normal 3.4-10.8 Compr [facility] Internal Medicine Work Phone: Comment on above: PATIENT WAS FASTINGP ERFORMED BY: KALPESH Rockwell CollinsNovant Health / [facility] [id number] WBC (Bld) [#/Vol] 5.0 10*3/uL Normal 3.4-10.8 [facility]; [facility] Work Phone: WBC Auto #/vol (Bld) 5.0 {x10E3/uL} Normal 3.4-10.8 [facility] Internal Medicine Work Phone: HGB A1C ([id number])Ordered By: S ystem Lumber Sticker on 04-07-2016 Hemoglobin A1c/Hemoglobin.total mass fraction (Bld) 5.3 % Normal 4.8-5.6 Comprehensiv e Internal Medicine Work Phone: Comment on above: . Pre-diabetes: 5.7 - 6.4 Diabetes: >6.4 Glycemic control for adults with diabetes: <7.0 PATIENT WAS FASTINGP ERFORMED BY: Particle CodeNovant Health / [facility] [id number] LIPID PANEL ([id number])Ordered B y: Youth Nutritional Monitor on 04-07-2016 Cholesterol in HDL mass conc 49 mg/dL Normal [facility] Work Phone: Comment on above: PATIENT WAS FASTINGP ERFORMED BY: KALPESH Eddy Millan[address] [facility] [id number] Cholesterol in LDL mass conc 103 mg/dL Abnormal 0-99 [facility] Work Phone: Comment on above: PATIENT WAS FASTINGP ERFORMED BY: KALPESH Eddy Millan[address] [facility] [id number] Cholesterol in LDL/Cholesterol in HDL mass ratio 2.1 {ratio_units} Normal 0.0-3.2 [facility] Work Phone: Comment on above: LDL/HDL Ratio Men Wo men 1/2 Avg.Risk 1.0 1.5 Avg.Risk 3.6 3.2 2X Avg.Risk 6.2 5.0 3X Avg.Risk 8.0 6.1 PATIENT WAS FASTINGP ERFORMED BY: KALPESH Keegancelena Uwxhyx[address] [facility] [id number] Cholesterol in VLDL mass conc 20 mg/dL Normal 5-40 [facility] Work Phone: Comment on above: PATIENT WAS FASTINGP ERFORMED BY: KALPESH Keegancelena Emneji[address] [facility] [id number] Cholesterol mass conc 172 mg/dL Normal 100-199 Com prehensive Internal Medicine Work Phone: Comment on above: PATIENT WAS FASTINGP ERFORMED BY: KALPESH GoyoAlexia HillSaesdv[address] [facility] [id number] Triglyceride mass conc 99 mg/dL Normal 0-149 Co mprehensive [facility] Medicine Work Phone: Comment on above: PATIENT WAS FASTINGP ERFORMED BY: KALPESH GoyoAlexia Fxwglm[address] [facility] [id number] METABOLIC PANEL, COMPREHENSI VE ([id number])Ordered By: Youth Nutritional Monitor on 04-07-2016 Albumin mass conc 4.2 g/dL Normal 3.5-5.5 Compreh ensive Internal Medicine Work Phone: Comment on above: PATIENT WAS FASTINGP ERFORMED BY: KALPESH [facility] Nbkyfi5396 Elizabeth RoadDublin [place] [id number] Albumin/Globulin mass ratio 1.9 {ratio} Normal 1.1-2.5 [facility] Internal Medicine Work Phone: Comment on above: PATIENT WAS FASTINGP ERFORMED BY: [facility] Tvhewf9767 Elizabeth RoadDublin [place] [id number] ALP [Catalytic activity/Vol] 67 U/L Normal 39-117 [facility]; [facility] Internal Medicine Work Phone: ALP enzyme act/vol 67 [iU]/L Normal 39-117 [facility] Internal Medicine Work Phone: Comment on above: PATIENT WAS FASTINGP ERFORMED BY: KALPESH [facility] Ledljj3165 [address] RoadDublin [place] [id number] ALT [Catalytic activity/Vol] 18 U/L Normal 0-32 [facility]; [facility] Internal Medicine Work Phone: ALT enzyme act/vol 18 [iU]/L Normal 0-32 [facility] Internal Medicine Work Phone: Comment on above: PATIENT WAS FASTINGP ERFORMED BY: [facility] Dfqneb1309 [address] RoadDublin [place] [id number] AST [Catalytic activity/Vol] 16 U/L Normal 0-40 [facility] Internal Medicine; [facility] Internal Medicine Work Phone: AST enzyme act/vol 16 [iU]/L Normal 0-40 [facility] Internal Medicine Work Phone: Comment on above: PATIENT WAS FASTINGP ERFORMED BY: [facility] Shdham4111 [address] RoadDublin [place] [id number] Bilirubin mass conc 0.6 mg/dL Normal 0.0-1.2 [facility] Internal Medicine Work Phone: Comment on above: PATIENT WAS FASTINGP ERFORMED BY: [facility] Mggqfu3831 Elizabeth RoadDublin [place] [id number] Calcium mass conc 9.8 mg/dL Normal 8.7-10.[address] [facility] Internal Medicine Work Phone: Comment on above: PATIENT WAS FASTINGP ERFORMED BY: KALPESH [facility] Vkogqr7439 Elizabeth RoadDublin [place] [id number] Chloride molar conc 104 mmol/L Normal 96-106 Compr ehensive Internal Medicine Work Phone: Comment on above: PATIENT WAS FASTINGP ERFORMED BY: KALPESH [facility] Tozgzl5173 [address] RoadDublin [place] [id number] CO2 molar conc 24 mmol/L Normal 18-29 Comprehens delia Internal Medicine Work Phone: Comment on above: PATIENT WAS FASTINGP ERFORMED BY: KALPESH [facility] Tlnegc6383 [address] RoadDublin [place] [id number] Creatinine mass conc 0.80 mg/dL Normal 0.57-1.00 Comp [facility] Work Phone: Comment on above: PATIENT WAS FASTINGP ERFORMED BY: KALPESH [facility] Ftcyot4414 [address] RoadDublin [place] [id number] GFR/1.73 sq M predicted among blacks CKD-EPI vol rate/area (S/P/Bld) 99 mL/min/1.73 Normal Comprehensiv e Internal Medicine Work Phone: Comment on above: PATIENT WAS FASTINGP ERFORMED BY: KALPESH [facility] Txgqxb1570 [address] RoadDublin [place] [id number] GFR/1.73 sq M predicted among non-blacks CKD-EPI vol rate/area (S/P/Bld) 86 mL/min/1.73 Normal Comprehe nsive Internal Medicine Work Phone: Comment on above: PATIENT WAS FASTINGP ERFORMED BY: KALPESH [facility] Liipwx7552 [address] RoadDublin [place] [id number] Globulin Calculated mass conc (S) 2.2 g/dL Normal 1.5-4.5 [facility] Work Phone: Globulin mass conc (S) 2.2 g/dL Normal 1.5-4.5 Co [facility] centerensive Internal Medicine Work Phone: Comment on above: PATIENT WAS FASTINGP ERFORMED BY: KALPESH [facility] Jowksg4535 [address] RoadDublin [place] [id number] Glucose mass conc 83 mg/dL Normal 65-99 Compreh ensive Internal Medicine Work Phone: Comment on above: PATIENT WAS FASTINGP ERFORMED BY: KALPESH [facility] Mgilrz5782 [address] [facility]in [place] [id number] Potassium molar conc 4.2 mmol/L Normal 3.5-5.2 Comp rehensive Internal Medicine Work Phone: Comment on above: PATIENT WAS FASTINGP ERFORMED BY: KALPESH [facility] Voqlzp4488 [address] [facility] [id number] Protein mass conc 6.4 g/dL Normal 6.0-8.5 Compreh ensive Internal Medicine Work Phone: Comment on above: PATIENT WAS FASTINGP ERFORMED BY: KALPESH [facility] Bdiqtb0260 [address] [facility] [id number] Sodium molar conc 141 mmol/L Normal 134-144 Compreh ensive Internal Medicine Work Phone: Comment on above: PATIENT WAS FASTINGP ERFORMED BY: KALPESH [facility] Xulbad4842 [address] [facility] [id number] Urea nitrogen mass conc 14 mg/dL Normal 6-24 C omprehensive Internal Medicine Work Phone: Comment on above: PATIENT WAS FASTINGP ERFORMED BY: KALPESH [facility] Hkxqkt0336 [address] [facility] [id number] Urea nitrogen/Creatinine mass ratio 18 mg/mg Normal 9-23 [facility] Work Phone: Comment on above: PATIENT WAS FASTINGP ERFORMED BY: LabC[facility] Wifgch2893 Elizabeth [facility]in [place] [id number] MICROALBUMINOrdered By: Syst em Lumber Sticker on 04-07-2016 Albumin DL <= 20 mg/L mass conc (U) 23.5 ug/mL Normal [facility] Work Phone: Comment on above: PATIENT WAS FASTINGP ERFORMED BY: [facility] Tazasb8430 Elizabeth [facility]in [place] [id number] Albumin/Creatinine mass ratio (U) 14.2 {mg/g_creat} Normal 0.0-30.0 [facility] Work Phone: Comment on above: PATIENT WAS FASTINGP ERFORMED BY: [facility]CoCap[facility])Xikfxq5[address] [facility] [id number] Creatinine mass conc (U) 165.2 mg/dL Normal [facility] Work Phone: Comment on above: PATIENT WAS FASTINGP ERFORMED BY: [facility] Ulnxis[address] [facility] [id number] TSH (THYROID STIMULATING HOR ROLAND) ([id number])Ordered By: Youth Nutritional Monitor on 04-07-2016 Thyrotropin Qn 3.580 {uIU/mL} Normal 0.450-4.50 0 [facility] Work Phone: Comment on above: PATIENT WAS FASTINGP ERFORMED BY: [facility] InformaticsCapital Health System [facility]Totuoi2[address] [facility] [id number] Basic Metabolic Profile (BMP )Ordered By: Youth Nutritional Monitor on 06-19-2014 Calcium mass conc 9.3 mg/dL Normal 8.5-10.1 Compreh ensive Internal Medicine Work Phone: Comment on above: Test performed at:[facility] [address] [place] [address] Chloride molar conc 104 mmol/L Normal 98-107 Compr ensive Internal Medicine Work Phone: Comment on above: Test performed at:[facility] [address] [place] [address] CO2 molar conc 28.0 mmol/L Normal 21.0-32.0 Comprehen [facility] Internal Medicine Work Phone: Comment on above: Test performed at:[facility] [address] [place] [address] Creatinine mass conc 0.9 mg/dL Normal 0.6-1.0 Comp [facility] Work Phone: Comment on above: Test performed at:[facility] [address]xnd[address] [place] [address] GFR/1.73 sq M predicted among non-blacks MDRD vol rate/area (S/P/Bld) 71 mL/min/{1.73_m2} Normal Comp rehensive Internal Medicine Work Phone: Comment on above: Test performed at:[facility] [address] [place] [address] Glucose mass conc 90 mg/dL Normal 70-110 Compreh ensive Internal Medicine Work Phone: Comment on above: Test performed at:[facility] [address] [place] [address] Potassium molar conc 3.6 mmol/L Normal 3.5-5.1 Comp rehensive Internal Medicine Work Phone: Comment on above: Test performed at:[facility] [address] [place] [address] Sodium molar conc 138 mmol/L Normal 136-145 Compreh ensive Internal Medicine Work Phone: Comment on above: Test performed at:[facility] [address] [place] [address] Urea nitrogen mass conc 12 mg/dL Normal 7-18 C omprehensive Internal Medicine Work Phone: Comment on above: Test performed at:[facility] [address] [place] [address] Basic Metabolic Profile (BMP) 13.3 {RATIO} Normal 10-20 [facility] Work Phone: Comment on above: Test performed at:[facility] [address] [place] [address] Basic Metabolic Profile (BMP) 86 mL/min Normal [facility] Work Phone: Comment on above: Test performed at:[facility] [address] [place] [address] Basic Metabolic Profile (BMP) 66.01 ml/min Normal [facility] Work Phone: Comment on above: Test performed at:[facility] [address] [place] [address] Basic Metabolic Profile (BMP) 6 1 Normal 5-15 [facility] Work Phone: Comment on above: Test performed at:[facility] [address] [place] [address] CBC-Complete Blood Cnt No Di ffOrdered By: Youth Nutritional Monitor on 06-19-2014 Erythrocyte distribution width Auto Ratio (RBC) 13.3 % Normal 11.6-14.6 [facility] Internal Medicine Work Phone: Erythrocyte distribution width Ratio (RBC) 13.3 % Normal 11.6-14.6 [facility] Work Phone: Comment on above: Test performed at:[facility] [address]tw[address] [place] [address] ; ordered by [employer] Hematocrit Auto Volume Fraction (Bld) 38.7 % Normal 37-47 [facility] Work Phone: Hematocrit Volume Fraction (Bld) 38.7 % Normal 37-47 [facility] Work Phone: Comment on above: Test performed at:[facility] [address]ns[address]ze[address] [place] [address] ; ordered by [employer] Hemoglobin mass conc (Bld) 13.4 g/dL Normal 12.0-15.0 [facility] Work Phone: Comment on above: Test performed at:[facility] [address] [place] [address] ; ordered by [employer] MCH Auto Entitic mass (RBC) 27.9 pg Normal 27.0-32.0 [facility] Work Phone: MCH Entitic mass (RBC) 27.9 pg Normal 27.0-32.0 [facility] Internal Medicine Work Phone: Comment on above: Test performed at:[facility] [address] [place], [place] [id number] ; ordered by Subitecsima MCHC Auto mass conc (RBC) 34.6 {g/gl} Normal 32-36 [facility] Work Phone: MCHC mass conc (RBC) 34.6 {g/gl} Normal 32-36 [facility] prehensive Internal Medicine Work Phone: Comment on above: Test performed at:[facility] [address] [place], [place] [id number] ; ordered by Subitecsima MCV Auto Entitic volume (RBC) 80.6 fL Abnormal 81-99 [facility] Work Phone: MCV Entitic volume (RBC) 80.6 fL Abnormal 81-99 [facility] Work Phone: Comment on above: Test performed at:[facility] [address] [place], [place] [id number] ; ordered by Subitecsima Platelet mean volume Auto Entitic volume (Bld) 10.6 fL Normal 6.2-12.0 [facility] Work Phone: Platelet mean volume Entitic volume (Bld) 10.6 fL Normal 6.2-12.0 Comprehensi ve Internal Medicine Work Phone: Comment on above: Test performed at:[facility] [address] [place], [place] [id number] ; ordered by Subitecsima Platelets #/vol (Bld) 193 10*3/uL Normal 150-450 [facility] Work Phone: Comment on above: Test performed at:[facility] [address] [place] [address] ; ordered by MiCarga Platelets Auto #/vol (Bld) 193 10*3/uL Normal 150-450 [facility] Work Phone: RBC #/vol (Bld) 4.80 {M/mm3} Normal 4.2-5.4 Compreh ensive Internal Medicine Work Phone: Comment on above: Test performed at:[facility] [address] [place] [address] ; ordered by INDOMjan RBC Auto #/vol (Bld) 4.80 {M/mm3} Normal 4.2-5.4 Co mprehensive [facility] Medicine Work Phone: RDW SD 39.0 fL Normal 35.1-43.9 [facility] Work Phone: WBC #/vol (Bld) 6.7 10*3/uL Normal 4.4-11.0 Comprehe nsive Internal Medicine Work Phone: Comment on above: Test performed at:[facility] [address] [place] [address] ; ordered by INDOMjan WBC Auto #/vol (Bld) 6.7 10*3/uL Normal 4.4-11.0 [facility] prehensive Internal Medicine Work Phone: CBC-Complete Blood Cnt No Diff 39.0 fL Normal 35.1-43.9 [facility] Work Phone: Comment on above: Test performed at:[facility] [address] [place] [address] ; ordered by huber Blood Glucose , Office ([phone])Ordered By: Viola Tyler on 10-18-2013 Glucose Glucometer molar conc (BldC) 105 1 Normal [facility] Work Phone: Comment on above: not fasting HgA1C , Office ([phone])Ordere d By: Viola Tyler on 10-18-2013 Hemoglobin A1c/Hemoglobin.total mass fraction (Bld) 5.2 % Normal 4.6 - 7.1 Comprehensiv e Internal Medicine Work Phone: CBC, Platelets & Auto Diff ( [id number])Ordered By: Youth Nutritional Monitor on 10-16-2013 Basophils #/vol (Bld) 0.0 {x10E3/uL} Normal 0.0-0.2 [facility] Work Phone: Comment on above: PATIENT WAS FASTINGP ERFORMED BY: [facility]Rtgizn[address] [facility] [id number] Information: [id number] Basophils (Bld) [#/Vol] 0.0 10*3/uL Normal 0.0-0.2 [facility]; [facility] Work Phone: Basophils Auto #/vol (Bld) 0.0 {x10E3/uL} Normal 0.0-0.2 [facility] Work Phone: Basophils/100 WBC (Bld) 1 % Normal 0-3 C omprehensive Internal Medicine Work Phone: Comment on above: PATIENT WAS FASTINGP ERFORMED BY: KALPESH [facility] [facility] [id number] Information: [id number] Basophils/100 WBC Auto (Bld) 1 % Normal 0-3 [facility] Work Phone: Eosinophils #/vol (Bld) 0.1 {x10E3/uL} Normal 0.0-0.4 [facility] Work Phone: Comment on above: PATIENT WAS FASTINGP ERFORMED BY: KALPESH [facility] [facility] [id number] Information: [id number] Eosinophils (Bld) [#/Vol] 0.1 10*3/uL Normal 0.0-0.4 [facility]; [facility] Work Phone: Eosinophils Auto #/vol (Bld) 0.1 {x10E3/uL} Normal 0.0-0.4 [facility] Work Phone: Eosinophils/100 WBC (Bld) 2 % Normal 0-5 [facility] Work Phone: Comment on above: PATIENT WAS FASTINGP ERFORMED BY: [facility] [facility] [id number] Information: [id number] Eosinophils/100 WBC Auto (Bld) 2 % Normal 0-5 [facility] Work Phone: Erythrocyte distribution width Auto Ratio (RBC) 14.5 % Normal 12.3-15.4 [facility] Internal Medicine Work Phone: Erythrocyte distribution width Ratio (RBC) 14.5 % Normal 12.3-15.4 [facility] Work Phone: Comment on above: PATIENT WAS FASTINGP ERFORMED BY: KALPESH [facility] Eecqzd4[address] [facility] [id number] Information: [id number] Hematocrit Auto Volume Fraction (Bld) 40.9 % Normal 34.0-46.6 [facility] Work Phone: Hematocrit Volume Fraction (Bld) 40.9 % Normal 34.0-46.6 [facility] Work Phone: Comment on above: PATIENT WAS FASTINGP ERFORMED BY: KALPESH [facility] Yznxuy9[address] [facility] [id number] Information: [id number] Hemoglobin mass conc (Bld) 13.7 g/dL Normal 11.1-15.9 [facility] Work Phone: Comment on above: PATIENT WAS FASTINGP ERFORMED BY: KALPESH [facility] Rciiyg1567 [facility] [id number] Information: [id number] Immature granulocytes #/vol (Bld) 0.0 {x10E3/uL} Normal 0.0-0.1 [facility] Work Phone: Comment on above: PATIENT WAS FASTINGP ERFORMED BY: KALPESH [facility] [facility] [id number] Information: [id number] Immature granulocytes (Bld) [#/Vol] 0.0 10*3/uL Normal 0.0-0.1 [facility]; [facility] Work Phone: Immature granulocytes/100 WBC (Bld) 0 % Normal 0-2 [facility] Work Phone: Comment on above: PATIENT WAS FASTINGP ERFORMED BY: KALPESH LabVeronica [place] [address] [facility] [id number] Information: [id number] Lymphocytes #/vol (Bld) 1.9 {x10E3/uL} Normal 0.7-3.1 [facility] Work Phone: Comment on above: PATIENT WAS FASTINGP ERFORMED BY: KALPESH [facility] [facility] [id number] Information: [id number] Lymphocytes (Bld) [#/Vol] 1.9 10*3/uL Normal 0.7-3.1 [facility]; [facility] Work Phone: Lymphocytes Auto #/vol (Bld) 1.9 {x10E3/uL} Normal 0.7-3.1 [facility] Work Phone: Lymphocytes/100 WBC (Bld) 30 % Normal 14-46 [facility] Work Phone: Comment on above: PATIENT WAS FASTINGP ERFORMED BY: KALPESH [place] [address] [facility] [id number] Information: [id number] Lymphocytes/100 WBC Auto (Bld) 30 % Normal 14-46 [facility] Work Phone: MCH Auto Entitic mass (RBC) 27.6 pg Normal 26.6-33.0 [facility] Work Phone: MCH Entitic mass (RBC) 27.6 pg Normal 26.6-33.0 Co [facility] Internal Medicine Work Phone: Comment on above: PATIENT WAS FASTINGP ERFORMED BY: [place] [address] [facility] [id number] Information: [id number] MCHC Auto mass conc (RBC) 33.5 g/dL Normal 31.5-35.7 [facility] Work Phone: MCHC mass conc (RBC) 33.5 g/dL Normal 31.5-35.7 [facility] Internal Medicine Work Phone: Comment on above: PATIENT WAS FASTINGP ERFORMED BY: KALPESH [place] [address] [facility] [id number] Information: [id number] MCV Auto Entitic volume (RBC) 82 fL Normal 79-97 [facility] Work Phone: MCV Entitic volume (RBC) 82 fL Normal 79-97 [facility] Work Phone: Comment on above: PATIENT WAS FASTINGP ERFORMED BY: KALPESH [address] [id number] Information: [id number] Monocytes #/vol (Bld) 0.4 {x10E3/uL} Normal 0.1-0.9 [facility] Work Phone: Comment on above: PATIENT WAS FASTINGP ERFORMED BY: KALPESH [address] [id number] Information: [id number] Monocytes (Bld) [#/Vol] 0.4 10*3/uL Normal 0.1-0.9 [facility]; [facility] Work Phone: Monocytes Auto #/vol (Bld) 0.4 {x10E3/uL} Normal 0.1-0.9 [facility] Work Phone: Monocytes/100 WBC (Bld) 7 % Normal 4-12 C omprehensive Internal Medicine Work Phone: Comment on above: PATIENT WAS FASTINGP ERFORMED BY: [place] [address] [facility] [id number] Information: [id number] Monocytes/100 WBC Auto (Bld) 7 % Normal 4-12 [facility] Work Phone: Neutrophils #/vol (Bld) 3.7 {x10E3/uL} Normal 1.4-7.0 [facility] Work Phone: Comment on above: PATIENT WAS FASTINGP ERFORMED BY: [place] [address] [facility] [id number] Information: [id number] Neutrophils (Bld) [#/Vol] 3.7 10*3/uL Normal 1.4-7.0 [facility]; [facility] Work Phone: Neutrophils Auto #/vol (Bld) 3.7 {x10E3/uL} Normal 1.4-7.0 [facility] Work Phone: Neutrophils/100 WBC (Bld) 60 % Normal 40-74 [facility] Work Phone: Comment on above: PATIENT WAS FASTINGP ERFORMED BY: KALPESH [facility] [facility] [id number] Information: [id number] Neutrophils/100 WBC Auto (Bld) 60 % Normal 40-74 [facility] Work Phone: Platelets #/vol (Bld) 190 {x10E3/uL} Normal 150-379 [facility] Work Phone: Comment on above: PATIENT WAS FASTINGP ERFORMED BY: KALPESH RadionomyVer[place] [address] [facility] [id number] Information: [id number] Platelets (Bld) [#/Vol] 190 10*3/uL Normal 150-379 [facility]; [facility] Work Phone: Platelets Auto #/vol (Bld) 190 {x10E3/uL} Normal 150-379 [facility] Work Phone: RBC #/vol (Bld) 4.97 {x10E6/uL} Normal 3.77-5.28 [facility] Internal Medicine Work Phone: Comment on above: PATIENT WAS FASTINGP ERFORMED BY: [facility] [facility] [id number] Information: [id number] RBC (Bld) [#/Vol] 4.97 10*6/uL Normal 3.77-5.28 [facility] Internal Medicine; [facility] Work Phone: RBC Auto #/vol (Bld) 4.97 {x10E6/uL} Normal 3.77-5.28 [facility] Work Phone: WBC #/vol (Bld) 6.2 {x10E3/uL} Normal 3.4-10.8 Compr ehensive Internal Medicine Work Phone: Comment on above: PATIENT WAS FASTINGP ERFORMED BY: LabBirthday Slam Lowyzl8902 [facility] EdRoverNovant Health Ball[facility] [id number] Information: [id number] WBC (Bld) [#/Vol] 6.2 10*3/uL Normal 3.4-10.8 Compre [facility] Internal Medicine; [facility] Work Phone: WBC Auto #/vol (Bld) 6.2 {x10E3/uL} Normal 3.4-10.8 [facility] Work Phone: Glucose, PP/2 Hour ([phone])Or dered By: Youth Nutritional Monitor on 10-16-2013 Glucose 2 hours p meal mass conc 84 mg/dL Normal 65-139 [facility] Work Phone: Comment on above: PATIENT WAS FASTINGP ERFORMED BY: LabBirthday Slam Jmrkwk6225 Elizabeth EdRoverNovant Health Ballantyne [facility] Center [id number] Information: [id number] [address] HITCHCOCK@ 1030AM Metabolic Panel, Comprehensi ve (80097)Ordered By: Youth Nutritional Monitor on 10-16-2013 Albumin mass conc 4.1 g/dL Normal 3.5-5.5 Compreh ensive Internal Medicine Work Phone: Comment on above: PATIENT WAS FASTINGP ERFORMED BY: LabCo Vuikat7508 Elizabeth EdRoverNovant Health Ballantyne [facility] [id number] Albumin/Globulin mass ratio 2.0 {ratio} Normal 1.1-2.5 [facility] Work Phone: Comment on above: PATIENT WAS FASTINGP ERFORMED BY: LabBirthday Slam Ojousg9800 Elizabeth EdRoverNovant Health Ballantyne [facility] [id number] ALP [Catalytic activity/Vol] 69 U/L Normal 39-117 [facility]; [facility] Work Phone: ALP enzyme act/vol 69 [iU]/L Normal 39-117 [facility] Internal [facility] Work Phone: Comment on above: PATIENT WAS FASTINGP ERFORMED BY: KALPESH GoyoAlexia HillGxenux4776 Elizabeth RoadDublin [place] [id number] ALT [Catalytic activity/Vol] 16 U/L Normal 0-32 [facility]; [facility] Internal Medicine Work Phone: ALT enzyme act/vol 16 [iU]/L Normal 0-32 [facility] Internal Medicine Work Phone: Comment on above: PATIENT WAS FASTINGP ERFORMED BY: KALPESH Hilllin[address] RoadDublin [place] [id number] AST [Catalytic activity/Vol] 12 U/L Normal 0-40 [facility]; [facility] Internal Medicine Work Phone: AST enzyme act/vol 12 [iU]/L Normal 0-40 [facility] Internal Medicine Work Phone: Comment on above: PATIENT WAS FASTINGP ERFORMED BY: KALPESH Hilllin[address] RoadLifecare Hospitals [facility] [place]ain [place] [id number] Bilirubin mass conc 0.6 mg/dL Normal 0.0-1.2 Compr ensive Internal Medicine Work Phone: Comment on above: PATIENT WAS FASTINGP ERFORMED BY: KALPESH [address]lin[address] [facility] [place] [id number] Calcium mass conc 9.7 mg/dL Normal 8.7-10.2 Compreh ensive Internal Medicine Work Phone: Comment on above: PATIENT WAS FASTINGP ERFORMED BY: KALPESH Hilllin[address] RoadLifecare Hospitals [facility] [place]ain [place] [id number] Chloride molar conc 101 mmol/L Normal 97-108 Compr ensive Internal Medicine Work Phone: Comment on above: PATIENT WAS FASTINGP ERFORMED BY: KALPESH LabAlexia HillHmlnsh9979 Elizabeth RoadDublin [place] [id number] CO2 molar conc 23 mmol/L Normal 18-29 Comprehens delia Internal Medicine Work Phone: Comment on above: PATIENT WAS FASTINGP ERFORMED BY: KALPESH Hilllin[address] [facility] [id number] Creatinine mass conc 0.83 mg/dL Normal 0.57-1.00 Comp rehensive Internal Medicine Work Phone: Comment on above: PATIENT WAS FASTINGP ERFORMED BY: LabCo Bmtctv6003 [address] [facility] [id number] GFR/1.73 sq M predicted among blacks CKD-EPI vol rate/area (S/P/Bld) 96 mL/min/1.73 Normal Comprehensiv e Internal Medicine Work Phone: Comment on above: PATIENT WAS FASTINGP ERFORMED BY: [facility]Ins[facility] [facility] [id number] GFR/1.73 sq M predicted among non-blacks CKD-EPI vol rate/area (S/P/Bld) 84 mL/min/1.73 Normal Comprehe nsive Internal Medicine Work Phone: Comment on above: PATIENT WAS FASTINGP ERFORMED BY: KALPESH [facility] [facility] [id number] Globulin Calculated mass conc (S) 2.1 g/dL Normal 1.5-4.5 [facility] Work Phone: Globulin mass conc (S) 2.1 g/dL Normal 1.5-4.5 Co mprehensive Internal Medicine Work Phone: Comment on above: PATIENT WAS FASTINGP ERFORMED BY: [facility]Insight [facility] [facility] [id number] Glucose mass conc 93 mg/dL Normal 65-99 Compreh ensive Internal Medicine Work Phone: Comment on above: PATIENT WAS FASTINGP ERFORMED BY: LabCo Fnelkg[address] [facility] [id number] Potassium molar conc 4.3 mmol/L Normal 3.5-5.2 Comp rehensive Internal Medicine Work Phone: Comment on above: PATIENT WAS FASTINGP ERFORMED BY: LabCo Rlzrpu[address] [facility] [id number] Protein mass conc 6.2 g/dL Normal 6.0-8.5 Compreh ensive Internal Medicine Work Phone: Comment on above: PATIENT WAS FASTINGP ERFORMED BY: KALPESH LabCo Cxfuta69[address] [facility] [id number] Sodium molar conc 138 mmol/L Normal 134-144 Compreh ensive Internal Medicine Work Phone: Comment on above: PATIENT WAS FASTINGP ERFORMED BY: KALPESH [facility] Andjxt7098 [address] EdRoverNovant Health Ballant[facility] [id number] Urea nitrogen mass conc 17 mg/dL Normal 6-24 C omprehensive Internal Medicine Work Phone: Comment on above: PATIENT WAS FASTINGP ERFORMED BY: KALPESH [facility] Ltsovg[address] [facility] [id number] Urea nitrogen/Creatinine mass ratio 20 mg/mg Normal 9-23 [facility] Work Phone: Comment on above: PATIENT WAS FASTINGP ERFORMED BY: KALPESH [facility] Mpjqju5[address] [facility] [id number] TSH ([id number])Ordered By: Syste m Lumber Sticker on 10-16-2013 Thyrotropin Qn 4.000 {uIU/mL} Normal 0.450-4.50 0 [facility] Work Phone: Comment on above: PATIENT WAS FASTINGP ERFORMED BY: KALPESH [facility] Cqdnyv[address] [facility] [id number] Urinalysis, Office ([phone])Or dered By: Melodie Charles on 09-25-2013 Bilirubin Ql (U) Negative Normal Comprehe nsive Internal Medicine Work Phone: Glucose Test strip mass conc (U) Negative Normal [facility] Work Phone: Hemoglobin Ql (U) Hemolyzed Large Normal Co mprehensive Internal Medicine Work Phone: Hemoglobin Test strip Ql (U) Hemolyzed Large Normal [facility] Work Phone: Ketones Ql (U) Negative Normal Comprehens delia Internal Medicine Work Phone: Leukocyte esterase Test strip Ql (U) Small Normal [facility] Work Phone: Nitrite Ql (U) Negative Normal Comprehens delia Internal Medicine Work Phone: Nitrite Test strip Ql (U) Negative Normal [facility] Work Phone: pH (U) 6 [pH] Abnormal [facility] Work Phone: pH Test strip (U) 6 [pH] Abnormal Compreh ensive Internal Medicine Work Phone: Protein Ql (U) 30 mg/dL Normal Comprehens delia Internal Medicine Work Phone: Protein Test strip Ql (U) 30 mg/dL Normal [facility] Work Phone: Specific gravity Relative Density (U) 1.025 1 Normal Comprehensi ve Internal Medicine Work Phone: Urobilinogen mass/time (24H U) Normal Normal [facility] Work Phone: Urinalysis, Office ([phone])on 09-25-2013 Bilirubin Ql (U) Negative Normal Comprehe nsive Internal Medicine; [facility] Work Phone: Glucose Test strip (U) [Mass/Vol] Negative Normal [facility]; [facility] Work Phone: Ketones Ql (U) Negative Normal Comprehens delia Internal Medicine; [facility] Work Phone: Nitrite Ql (U) Negative Normal Comprehens delia Internal Medicine; [facility] Work Phone: CBC (Auto) ([id number])Ordered By : Youth Nutritional Monitor on 02-11-2012 Erythrocyte distribution width Auto Ratio (RBC) 14.0 % Normal 12.3-15.4 Comprehen sive Internal Medicine Work Phone: Erythrocyte distribution width Ratio (RBC) 14.0 % Normal 12.3-15.4 [facility] Work Phone: Comment on above: PATIENT NOT FASTINGP ERFORMED BY: [facility]CoCap[facility])Fsstev07[address] [facility] [id number] Hematocrit Auto Volume Fraction (Bld) 42.1 % Normal 34.0-46.6 [facility] Work Phone: Hematocrit Volume Fraction (Bld) 42.1 % Normal 34.0-46.6 [facility] Work Phone: Comment on above: PATIENT NOT FASTINGP ERFORMED BY: KALPESH GoyoBritt Gxmhdv[address] [facility] [id number] Hemoglobin mass conc (Bld) 14.9 g/dL Normal 11.1-15.9 [facility] Work Phone: Comment on above: PATIENT NOT FASTINGP ERFORMED BY: KALPESH LabBritt Sfotpp[address] [facility] [id number] MCH Auto Entitic mass (RBC) 29.0 pg Normal 26.6-33.0 [facility] Work Phone: MCH Entitic mass (RBC) 29.0 pg Normal 26.6-33.0 [facility] Internal Medicine Work Phone: Comment on above: PATIENT NOT FASTINGP ERFORMED BY: KALPESH LabAlexia HillQazytw4728 [facility] [id number] MCHC Auto mass conc (RBC) 35.4 g/dL Normal 31.5-35.7 [facility] Work Phone: MCHC mass conc (RBC) 35.4 g/dL Normal 31.5-35.7 [facility] Internal Medicine Work Phone: Comment on above: PATIENT NOT FASTINGP ERFORMED BY: KALPESH LabVeronica V[place] 2857970 [facility] [id number] MCV Auto Entitic volume (RBC) 82 fL Normal 79-97 [facility] Work Phone: MCV Entitic volume (RBC) 82 fL Normal 79-97 [facility] Internal Medicine Work Phone: Comment on above: PATIENT NOT FASTINGP ERFORMED BY: KALPESH LabBrittChristopher Ville 7[address]1470 [facility] [id number] Platelets #/vol (Bld) 203 {x10E3/uL} Normal 140-415 [facility] Work Phone: Comment on above: PATIENT NOT FASTINGP ERFORMED BY: KALPESH Hilllin[address] [facility] [id number] Platelets (Bld) [#/Vol] 203 10*3/uL Normal 140-415 [facility]; [facility] Work Phone: Platelets Auto #/vol (Bld) 203 {x10E3/uL} Normal 140-415 [facility] Work Phone: RBC #/vol (Bld) 5.14 {x10E6/uL} Normal 3.77-5.28 [facility] Work Phone: Comment on above: PATIENT NOT FASTINGP ERFORMED BY: KALPESH Hilllin[address] [facility] [id number] RBC (Bld) [#/Vol] 5.14 10*6/uL Normal 3.77-5.28 Compr ensive Internal Medicine; [facility] Work Phone: RBC Auto #/vol (Bld) 5.14 {x10E6/uL} Normal 3.77-5.28 [facility] Work Phone: WBC #/vol (Bld) 5.1 {x10E3/uL} Normal 4.0-10.5 Compr [facility] Internal Medicine Work Phone: Comment on above: PATIENT NOT FASTINGP ERFORMED BY: KALPESH Hilllin[address] [facility] [id number] WBC (Bld) [#/Vol] 5.1 10*3/uL Normal 4.0-10.5 Compre [facility] Internal Medicine; [facility] Work Phone: WBC Auto #/vol (Bld) 5.1 {x10E3/uL} Normal 4.0-10.5 [facility] Work Phone: Metabolic Panel, Comprehensi ve ([id number])Ordered By: Youth Nutritional Monitor on 02-11-2012 Albumin mass conc 4.1 g/dL Normal 3.5-5.5 Compreh [facility] Internal [facility] Work Phone: Comment on above: PATIENT NOT FASTINGP ERFORMED BY: KALPESH AllisonChristopher [place] 7[address]1470 [facility] [id number] Information: [id number] Albumin/Globulin mass ratio 1.8 {ratio} Normal 1.1-2.5 [facility] Internal Medicine Work Phone: Comment on above: PATIENT NOT FASTINGP ERFORMED BY: KALPESH Allison Afbfle[address] [facility] [id number] Information: [id number] ALP [Catalytic activity/Vol] 72 U/L Normal 25-150 [facility] Internal Medicine; [facility] Internal Medicine Work Phone: ALP enzyme act/vol 72 [iU]/L Normal 25-150 [facility] Internal Medicine Work Phone: Comment on above: PATIENT NOT FASTINGP ERFORMED BY: KALPESH Allison Xhkcjv[address] [facility] [id number] Information: [id number] ALT [Catalytic activity/Vol] 14 U/L Normal 0-32 [facility] Internal Medicine; [facility] Internal Medicine Work Phone: ALT enzyme act/vol 14 [iU]/L Normal 0-32 [facility] Internal Medicine Work Phone: Comment on above: Please note refere nce interval change PATIENT NOT FASTINGP ERFORMED BY: KALPESH Allison Ljvtdd38[address] [facility] [id number] Information: [id number] AST [Catalytic activity/Vol] 13 U/L Normal 0-40 [facility] Internal Medicine; [facility] Internal Medicine Work Phone: AST enzyme act/vol 13 [iU]/L Normal 0-40 [facility] Internal Medicine Work Phone: Comment on above: PATIENT NOT FASTINGP ERFORMED BY: KALPESH [facility] Gyevku28[address] [facility] [id number] Information: [id number] Bilirubin mass conc 0.5 mg/dL Normal 0.0-1.2 [facility] [facility] Work Phone: Comment on above: PATIENT NOT FASTINGP ERFORMED BY: KALPESH [facility] Vtnxya3660 [facility] [id number] Information: [id number] Calcium mass conc 9.6 mg/dL Normal 8.7-10.2 Compreh ensive Internal Medicine Work Phone: Comment on above: PATIENT NOT FASTINGP ERFORMED BY: CB [facility] Rwbwmb5241 [facility] [id number] Information: [id number] Chloride molar conc 105 mmol/L Normal 97-108 Compr ehensive Internal Medicine Work Phone: Comment on above: PATIENT NOT FASTINGP ERFORMED BY: CB [facility] Gigimv6545 [facility] [id number] Information: [id number] CO2 molar conc 21 mmol/L Normal 20-32 Comprehens delia Internal Medicine Work Phone: Comment on above: PATIENT NOT FASTINGP ERFORMED BY: CB [facility] Rwkgxc0579 [facility] [id number] Information: [id number] Creatinine mass conc 0.94 mg/dL Normal 0.57-1.00 Comp rehensive Internal Medicine Work Phone: Comment on above: PATIENT NOT FASTINGP ERFORMED BY: CB [facility] Iqksgx7825 [facility] [id number] Information: [id number] GFR/1.73 sq M predicted among blacks CKD-EPI vol rate/area (S/P/Bld) 84 mL/min/1.73 Normal Comprehensiv e Internal Medicine Work Phone: Comment on above: PATIENT NOT FASTINGP ERFORMED BY: CB [facility] Lpgqma4664 [facility] [id number] Information: [id number] GFR/1.73 sq M predicted among non-blacks CKD-EPI vol rate/area (S/P/Bld) 73 mL/min/1.73 Normal Comprehe nsive Internal Medicine Work Phone: Comment on above: PATIENT NOT FASTINGP ERFORMED BY: KALPESH [facility] Hsnksi8497 [facility] [id number] Information: [id number] Globulin Calculated mass conc (S) 2.3 g/dL Normal 1.5-4.5 [facility] Work Phone: Globulin mass conc (S) 2.3 g/dL Normal 1.5-4.5 Co mprehensive Internal Medicine Work Phone: Comment on above: PATIENT NOT FASTINGP ERFORMED BY: KALPESH [facility] Fxhxpl5179 [facility] [id number] Information: [id number] Glucose mass conc 90 mg/dL Normal 65-99 Compreh ensive Internal Medicine Work Phone: Comment on above: PATIENT NOT FASTINGP ERFORMED BY: KALPESH Allison Hwmtqc2105 [facility] [id number] Information: 467371,[id number] Potassium molar conc 4.2 mmol/L Normal 3.5-5.2 Comp rehensive Internal Medicine Work Phone: Comment on above: PATIENT NOT FASTINGP ERFORMED BY: KALPESH Allison Twtmuf8[address] [facility] [id number] Information: [id number] Protein mass conc 6.4 g/dL Normal 6.0-8.5 Compreh ensive Internal Medicine Work Phone: Comment on above: PATIENT NOT FASTINGP ERFORMED BY: KALPESH [facility] Tlltmr7374 [facility] [id number] Information: [id number] Sodium molar conc 141 mmol/L Normal 134-144 Compreh ensive Internal Medicine Work Phone: Comment on above: PATIENT NOT FASTINGP ERFORMED BY: KALPESH [facility] Yxvyou4340 [facility] [id number] Information: [id number] Urea nitrogen mass conc 12 mg/dL Normal 6-24 C omprehensive Internal Medicine Work Phone: Comment on above: PATIENT NOT FASTINGP ERFORMED BY: CB [facility] Pqwtxi3995 [address] RoadD[address] [place] [id number] Information: [id number] Urea nitrogen/Creatinine mass ratio 13 mg/mg Normal 9- [facility] Work Phone: Comment on above: PATIENT NOT FASTINGP ERFORMED BY: CB [facility] Qpzisk5735 [address] RoadDublin [place] [id number] Information: [id number] URINALYSIS (00068)Ordered By : Youth Nutritional Monitor on 02-11-2012 Appearance Nom (U) Clear Normal Compre hensive Internal Medicine Work Phone: Comment on above: PATIENT NOT FASTINGP ERFORMED BY: CB [facility] Qktkdh6849 [address] RoadD[address] [place] [id number] Bilirubin Ql (U) Negative Normal Comprehe nsive Internal Medicine Work Phone: Comment on above: PATIENT NOT FASTINGP ERFORMED BY: CB [facility] Ivweey2570 [address] [place] [id number] Bilirubin Ql (U) Negative Normal Comprehe nsive Internal Medicine; [facility] Work Phone: Color Nom (U) Yellow Normal Comprehensi ve Internal Medicine Work Phone: Comment on above: PATIENT NOT FASTINGP ERFORMED BY: CB [facility] Mmuuns1612 [address] [place] [id number] Glucose Ql (U) Negative Normal Comprehens delia Internal Medicine Work Phone: Comment on above: PATIENT NOT FASTINGP ERFORMED BY: CB [facility] Ojxeia1173 [address] [place] [id number] Glucose Ql (U) Negative Normal Comprehens delia Internal Medicine; [facility] Work Phone: Hemoglobin Ql (U) Negative Normal Compreh ensive Internal Medicine Work Phone: Comment on above: PATIENT NOT FASTINGP ERFORMED BY: CB [facility] Lexylo2667 [address] [place] [id number] Hemoglobin Ql (U) Negative Normal Compreh ensive Internal Medicine; [facility] Work Phone: Hemoglobin Test strip Ql (U) Negative Normal [facility] Work Phone: Ketones Ql (U) Negative Normal Comprehens delia Internal Medicine Work Phone: Comment on above: PATIENT NOT FASTINGP ERFORMED BY: KALPESH LabCocelena HillWyhgdy8815 [address] RoadD[address] [place] [id number] Ketones Ql (U) Negative Normal Comprehens delia Internal Medicine; [facility] Work Phone: Leukocyte esterase Test strip Ql (U) Negative Normal [facility] Work Phone: Comment on above: PATIENT NOT FASTINGP ERFORMED BY: KALPESH LabCocelena HillRiozfp4858 [address] RoadD[address] [place] [id number] Leukocyte esterase Test strip Ql (U) Negative Normal [facility]; [facility] Work Phone: Microscopic observation LM Nom (Urine sed) MICRON Normal [facility] Work Phone: Comment on above: Microscopic follows if indicated. PATIENT NOT FASTINGP ERFORMED BY: KALPESH [facility] Jofemp0100 [address] [place] [id number] Nitrite Ql (U) Negative Normal Comprehens delia Internal Medicine Work Phone: Comment on above: PATIENT NOT FASTINGP ERFORMED BY: KALPESH LabCocelena HillSuwqlq9606 [address] RoadDublin [place] [id number] Nitrite Ql (U) Negative Normal Comprehens delia Internal Medicine; [facility] Work Phone: Nitrite Test strip Ql (U) Negative Normal [facility] Work Phone: pH (U) 7.0 [pH] Normal 5.0-7.5 [facility] Work Phone: Comment on above: PATIENT NOT FASTINGP ERFORMED BY: KALPESH [facility] Lukjrd1369 [address] RoadD[address] [place] [id number] pH Test strip (U) 7.0 [pH] Normal 5.0-7.5 Compreh ensive Internal Medicine Work Phone: Protein Ql (U) Negative Normal Comprehens delia Internal Medicine Work Phone: Comment on above: PATIENT NOT FASTINGP ERFORMED BY: KALPESH Aver Informaticscelena Yrofwa34[address] [facility] [id number] Protein Ql (U) Negative Normal Comprehens delia Internal Medicine; [facility] Work Phone: Protein Test strip Ql (U) Negative Normal [facility] Work Phone: Specific gravity Relative Density (U) 1.022 1 Normal 1.005-1.03 0 [facility] Work Phone: Comment on above: PATIENT NOT FASTINGP ERFORMED BY: KALPESH RadionomyAlexia HillOrthok14[address] [facility] [id number] Urobilinogen (U) [Mass/Vol] 0.2 mg/dL Normal 0.0-1.9 [facility]; [facility] Work Phone: Urobilinogen Test strip mass conc (U) 0.2 mg/dL Normal 0.0-1.9 [facility] Work Phone: Comment on above: PATIENT NOT FASTINGP ERFORMED BY: KALPESH LabCocelena HillCeoxec4809 [facility] [id number] ABDOMEN/PELVIS WITH CONTRAST Ordered By: Youth Nutritional Monitor on 02-03-2012 ABDOMEN/PELVIS WITH CONTRAST See Note Normal [facility] Work Phone: Comment on above: PROCEDURE: CT ABDOME N AND PELVIS WITH CONTRAST REASON FOR EXAM: Female, 46 years old. Abdominal pain RADIATION DOSAGE (If Supplied By Facility): CTDIvol = ( 19.35 ) mGy, DLP=( 2111.64 ) mGycm TECHNIQUE: Transaxial images were obtained from the dome of thediaphragmto the symphysis pubis with oral contrast. 100CC ml of Isovue 300contrastwas administered. COMPARISON: None. FINDINGS:The visualized lung bases are unremarkable. Several subcentimeter cysts of the liver. Normal gallbladder andextrahepatic biliary system. Normal enhanced spleen. Normal pancreas. Normal bilateral adrenal glands. Atrophic right kidney. There multiple large cysts. There are no rightrenal calculi. There is no right hydronephrosis. Normal visualizedrightureter. Normal size of the left kidney. There is no left renal mass. There arenoleft renal calculi. There is no left hydronephrosis. Normal visualizedleft ureter. Normal visualized stomach. Normal small intestine. Normal colon. Theappendix is visualized and appears normal. There is no demonstrated peritoneal fluid. Normal abdominal aorta. Normal inferior vena cava. Normalretroperitoneum. Normal urinary bladder. There is a left ovarian cystic lesion measuring2.5-cm. There is no pelvic fluid. IUD in the uterus. Normal abdominal wall. Normal osseous structures. IMPRESSION:Tiny cysts of the liver.A left ovarian cyst.Numerous cysts of the atrophic right kidney. Signed:Yony Rosenbaum D.O.February 03, 2012 at 9:16:19 PM [id number] Signed IF/IF If you are the referring physician and would like to consult with theradiologist who provided this interpretation, please contact Yony Rosenbaum D.O.at [phone]. If this radiologist is unavailable, you will be directedto another radiologist to assist. If you are a patient with a question regarding this report, pleasecontactyour referring physician directly. Professional Interpretation Provided By: [place], Phone , These documents contain legally protected and confidential healthinformation intended only for the use of the individual or entity namedabove. If you are not the intended recipient, you are hereby notifiedthatany disclosure, copying, distribution, or other use of these documents isstrictly prohibited. If you have received this information in error,pleasenotify the sender immediately and arrange for the return or destructionofthese documents. Dictated on 02/03/12 1609 by Francisco Rosenbaum DOranscribed on 02/03/122118 by ITS IMPORTSign by Yony Rosenbaum DO on 02/03/122119 Sign by: Yony Rosenbaum DO Blood Glucose , Office ([phone])Ordered By: RAMIRO Pagan on 06-17-2011 Glucose Glucometer molar conc ([facility]) 111 1 Normal [facility] Work Phone: HgA1C , Office ([phone])Ordere d By: RAMIRO Pagan on 06-17-2011 Hemoglobin A1c/Hemoglobin.total mass fraction (Bld) 5.2 % Normal 4.6 - 7.1 Comprehensiv e Internal Medicine Work Phone: CBC WITH MANUAL DIFF (04000) Ordered By: Youth Nutritional Monitor on 12-23-2010 Basophils #/vol (Bld) 0.1 {x10E3/uL} Normal 0.0-0.2 [facility] Work Phone: Comment on above: PATIENT WAS FASTINGP ERFORMED BY: LipModerna Therapeutics0 [facility] [id number] BY: KALPESH RadionomyAlexia HillKbarok0[address] [facility] [id number] Basophils (Bld) [#/Vol] 0.1 10*3/uL Normal 0.0-0.2 [facility]; [facility] Work Phone: Basophils Auto #/vol (Bld) 0.1 {x10E3/uL} Normal 0.0-0.2 [facility] Work Phone: Basophils/100 WBC (Bld) 1 % Normal 0-3 C omprehensive Internal Medicine Work Phone: Comment on above: PATIENT WAS FASTINGP ERFORMED BY: Affinity Wea3336 [facility] [id number] BY: KALPESH Hilllin[address] [facility] [id number] Basophils/100 WBC Auto (Bld) 1 % Normal 0-3 [facility] Work Phone: Eosinophils #/vol (Bld) 0.1 {x10E3/uL} Normal 0.0-0.4 [facility] Work Phone: Comment on above: PATIENT WAS FASTINGP ERFORMED BY: LipGroupsite Qkw4184 [facility] [id number] BY: KALPESH Aver Informaticscelena HillBxfsqs5533 [facility] [id number] Eosinophils (Bld) [#/Vol] 0.1 10*3/uL Normal 0.0-0.4 [facility]; [facility] Work Phone: Eosinophils Auto #/vol (Bld) 0.1 {x10E3/uL} Normal 0.0-0.4 [facility] Work Phone: Eosinophils/100 WBC (Bld) 2 % Normal 0-7 [facility] Work Phone: Comment on above: PATIENT WAS FASTINGP ERFORMED BY: S7 [employer] Wxw8873 [facility] [id number] BY: KALPESH Labconvoy therapeutics70 [facility] [id number] Eosinophils/100 WBC Auto (Bld) 2 % Normal 0-7 [facility] Work Phone: Erythrocyte distribution width Auto Ratio (RBC) 14.2 % Normal 11.7-15.0 [facility] Internal Medicine Work Phone: Erythrocyte distribution width Ratio (RBC) 14.2 % Normal 11.7-15.0 [facility] Internal Medicine Work Phone: Comment on above: PATIENT WAS FASTINGP ERFORMED BY: S7 LipoSciLocateB[place] Iqr0066 [facility] [id number] BY: KALPESH LabBirthday Slamrp Zfutur9956 [facility] [id number] Hematocrit Auto Volume Fraction (Bld) 41.1 % Normal 34.0-44.0 [facility] Work Phone: Hematocrit Volume Fraction (Bld) 41.1 % Normal 34.0-44.0 [facility] Internal Medicine Work Phone: Comment on above: PATIENT WAS FASTINGP ERFORMED BY: S7 [employer] Ajo0999 [facility] [id number] BY: KALPESH LabBirthday Slamrp Jgdayp9351 [facility] [id number] Hemoglobin mass conc (Bld) 13.9 g/dL Normal 11.5-15.0 [facility] Work Phone: Comment on above: PATIENT WAS FASTINGP ERFORMED BY: [employer] Kph6240 [facility] [id number] BY: KALPESH LabAlexia HillFywxll2707 [facility] [id number] Immature granulocytes #/vol (Bld) 0.0 {x10E3/uL} Normal 0.0-0.1 [facility] Work Phone: Comment on above: PATIENT WAS FASTINGP ERFORMED BY: [employer] Cgx7513 [facility] [id number] BY: KALPESH [facility] SystemsBritt Plmsxq1282 [facility] [id number] Immature granulocytes (Bld) [#/Vol] 0.0 10*3/uL Normal 0.0-0.1 [facility]; [facility] Work Phone: Immature granulocytes/100 WBC (Bld) 0 % Normal 0-2 [facility] Work Phone: Comment on above: Please note refere nce interval change PATIENT WAS FASTINGP ERFORMED BY: [employer] [address] [place] [address] [id number] BY: KALPESH [facility] SystemsAlexia Whtyeh19[address] [facility] [id number] Lymphocytes #/vol (Bld) 1.5 {x10E3/uL} Normal 0.7-4.5 [facility] Work Phone: Comment on above: PATIENT WAS FASTINGP ERFORMED BY: [employer] Zos6495 [facility] [id number] BY: KALPESH [facility] SystemsBrittCapital Health System ([facility])Vkgovz0595 [facility] [id number] Lymphocytes (Bld) [#/Vol] 1.5 10*3/uL Normal 0.7-4.5 [facility]; [facility] Work Phone: Lymphocytes Auto #/vol (Bld) 1.5 {x10E3/uL} Normal 0.7-4.5 [facility] Work Phone: Lymphocytes/100 WBC (Bld) 24 % Normal 14-46 [facility] Work Phone: Comment on above: PATIENT WAS FASTINGP ERFORMED BY: Lexi [employer] Ght6146 [facility] [id number] BY: KALPESH [facility] SystemsAlexia HillFliugi32[address] [facility] [id number] Lymphocytes/100 WBC Auto (Bld) 24 % Normal 14-46 [facility] Work Phone: MCH Auto Entitic mass (RBC) 28.0 pg Normal 27.0-34.0 [facility] Internal Medicine Work Phone: MCH Entitic mass (RBC) 28.0 pg Normal 27.0-34.0 [facility] Internal Medicine Work Phone: Comment on above: PATIENT WAS FASTINGP ERFORMED BY: Lexi [employer]oScience Qab5610 [facility] [id number] BY: KALPESH [facility] SystemsAlexia HillNqvprh34[address] [facility] [id number] MCHC Auto mass conc (RBC) 33.8 g/dL Normal 32.0-36.0 [facility] Internal Medicine Work Phone: MCHC mass conc (RBC) 33.8 g/dL Normal 32.0-36.0 [facility] Internal Medicine Work Phone: Comment on above: PATIENT WAS FASTINGP ERFORMED BY: Lexi [employer]oScience Gri8334 [facility] [id number] BY: KALPESH LabAlexia HillPvvqqo7117 [facility] [id number] MCV Auto Entitic volume (RBC) 83 fL Normal 80-98 [facility] Work Phone: MCV Entitic volume (RBC) 83 fL Normal 80-98 [facility] Work Phone: Comment on above: PATIENT WAS FASTINGP ERFORMED BY: Lexi [employer]oScience Qri5495 [facility] [id number] BY: KALPESH LabAlexia HillIayzuz4525 [facility] [id number] Monocytes #/vol (Bld) 0.4 {x10E3/uL} Normal 0.1-1.0 [facility] Work Phone: Comment on above: PATIENT WAS FASTINGP ERFORMED BY: [employer] Kpa9602 [facility] [id number] BY: [facility] Anbhcx9605 [facility] [id number] Monocytes (Bld) [#/Vol] 0.4 10*3/uL Normal 0.1-1.0 [facility]; [facility] Work Phone: Monocytes Auto #/vol (Bld) 0.4 {x10E3/uL} Normal 0.1-1.0 [facility] Work Phone: Monocytes/100 WBC (Bld) 7 % Normal 4-13 C omprehensive Internal Medicine Work Phone: Comment on above: PATIENT WAS FASTINGP ERFORMED BY: [employer] [address] [place] [address] [id number] BY: LabBirthday SlamUNM Children's Psychiatric CenterMcprav6584 [facility] [id number] Monocytes/100 WBC Auto (Bld) 7 % Normal 4-13 [facility] Work Phone: Neutrophils #/vol (Bld) 4.1 {x10E3/uL} Normal 1.8-7.8 [facility] Work Phone: Comment on above: PATIENT WAS FASTINGP ERFORMED BY: [employer] Jbe[address] [place] [address] [id number] BY: [facility] Kvplga7016 [facility] [id number] Neutrophils (Bld) [#/Vol] 4.1 10*3/uL Normal 1.8-7.8 [facility]; [facility] Work Phone: Neutrophils Auto #/vol (Bld) 4.1 {x10E3/uL} Normal 1.8-7.8 [facility] Work Phone: Neutrophils/100 WBC (Bld) 66 % Normal 40-74 [facility] Work Phone: Comment on above: PATIENT WAS FASTINGP ERFORMED BY: Lexi LipoScience Zcb8064 [facility] [id number] BY: KALPESH [facility] SystemsBirthday SlamCapital Health System ([facility])Epyabs9955 [facility] [id number] Neutrophils/100 WBC Auto (Bld) 66 % Normal 40-74 [facility] Work Phone: Platelets #/vol (Bld) 219 {x10E3/uL} Normal 140-415 [facility] Work Phone: Comment on above: PATIENT WAS FASTINGP ERFORMED BY: Lexi LipoScience Alo4223 [facility] [id number] BY: KALPESH [facility] SystemsBirthday SlamChristopher Ville 7[address]14[address] [facility] [id number] Platelets (Bld) [#/Vol] 219 10*3/uL Normal 140-415 [facility]; [facility] Work Phone: Platelets Auto #/vol (Bld) 219 {x10E3/uL} Normal 140-415 [facility] Work Phone: RBC #/vol (Bld) 4.96 {x10E6/uL} Normal 3.80-5.10 Comp [facility] Internal Medicine Work Phone: Comment on above: PATIENT WAS FASTINGP ERFORMED BY: Lexi LipoScience Ibu2487 [facility] [id number] BY: KALPESH [facility] SystemsBirthday SlamCapital Health System ([facility])Kjhxdh6034 [facility] [id number] RBC (Bld) [#/Vol] 4.96 10*6/uL Normal 3.80-5.10 Compr ensive Internal Medicine; [facility] Work Phone: RBC Auto #/vol (Bld) 4.96 {x10E6/uL} Normal 3.80-5.10 [facility] Work Phone: WBC #/vol (Bld) 6.1 {x10E3/uL} Normal 4.0-10.5 Compr [facility] Internal Medicine Work Phone: Comment on above: PATIENT WAS FASTINGP ERFORMED BY: S7 [employer] Dlf1423 [facility] [id number] BY: KALPESH Hilllin[address] [facility] [id number] WBC (Bld) [#/Vol] 6.1 10*3/uL Normal 4.0-10.5 Compre [facility] Internal Medicine; [facility] Work Phone: WBC Auto #/vol (Bld) 6.1 {x10E3/uL} Normal 4.0-10.5 [facility] Work Phone: Hemoglobin Glyclated (HGB A1 C) (55849)Ordered By: Youth Nutritional Monitor on 12-23-2010 Hemoglobin A1c/Hemoglobin.total mass fraction (Bld) 5.1 % Normal 4.8-5.6 Comprehensiv e Internal Medicine Work Phone: Comment on above: Increased risk for d iabetes: 5.7 - 6.4 Diabetes: >6.4 Glycemic control for adults with diabetes: <7.0 PATIENT WAS FASTINGP ERFORMED BY: Lexi LipoScience Jzu7488 [facility] [id number] BY: KALPESH RadionomyAlexia Vadzle50[address] [facility] [id number] LIPOPROTEIN, BLD, BY NMR (03 681)Ordered By: Youth Nutritional Monitor on 12-23-2010 Cholesterol in HDL mass conc 47 mg/dL Normal [facility] Work Phone: Comment on above: PATIENT WAS FASTINGP ERFORMED BY: S7 [employer] Xtn7615 [facility] [id number] BY: KALPESH LabAlexia Nlmujv77[address] [facility] [id number] Cholesterol in LDL mass conc 98 mg/dL Normal [facility] Work Phone: Comment on above: . Optimal < 100 Abov e optimal 100 - 129 Borderline 130 - 159 High 160 - 189 Very high > 189 . PATIENT WAS FASTINGP ERFORMED BY: S7 [employer] Rfk1163 [facility] [id number] BY: [employer] Xerbef38[address] [facility] [id number] Cholesterol mass conc 161 mg/dL Normal Com prehensive Internal Medicine Work Phone: Comment on above: PATIENT WAS FASTINGP ERFORMED BY: [employer] [facility] [id number] BY: [employer] Cxyamm15[address] [facility] [id number] Lipoprotein insulin resistance score Score 65 1 Abnormal Comprehen sive Internal Medicine Work Phone: Comment on above: The LP-IR Score comb merly information from lipoproteinparticle concentration and size to give improvedassessment of insulin resistance and diabetes risk.Small LDL-P, LDL Particle Size, HDL-Particle, andLP-IR Score have been validated by LipoSciencebut not cleared by [place] FDA; the clinical utilityof these test results has not been fully established.INSULIN RESISTANCE MARKER <--Insulin Sensitive Insulin Resistant--> Percentile in Reference PopulationInsulin Resistance ScoreLP-IR Score Low 25th 50th 75th High <27 27 45 63 >63 Lipoprotein.alpha molar conc 27.8 umol/L Abnormal [facility] Work Phone: Comment on above: PATIENT WAS FASTINGP ERFORMED BY: S7 [employer] [facility] [id number] BY: [employer] Dpeukd20[address] [facility] [id number] Lipoprotein.beta.subpart icle Entitic length 20.9 nm Normal Comprehensiv e Internal Medicine Work Phone: Comment on above: INTERPRETATIVE INFORMATION PARTICLE CONCENTRATION AND SIZE <--Lower CVD Risk Higher CVD Risk--> LDL AND HDL PARTICLES Percentile in Reference Population HDL-P (total) High 75th 50th 25th Low >34.9 34.9 30.5 26.7 <26.7 . Small LDL-P Low 25th 50th 75th High <117 [phone] >839 . LDL Size <-Large (Pattern A)-> <-Small (Pattern B)-> 23.0 20.6 20.5 19.0 PATIENT WAS FASTINGP ERFORMED BY: S7 LipoSciLocateB[place] Xii6483 [facility] [id number] BY: KALPESH [employer] Rucogh84[address] [facility] [id number] Lipoprotein.beta.subpart icle molar conc 1322 nmol/L Abnormal [facility] Work Phone: Comment on above: Low < 1000 Moderate 1000 - 1299 Borderline-High 1300 - 1599 High 1600 - 2000 Very High > 2000 PATIENT WAS FASTINGP ERFORMED BY: S7 [employer] Xiv4181 [facility] [id number] BY: KALPESH LabAlexia HillKsczxh3881 [facility] [id number] Lipoprotein.beta.subpart icle.small molar conc 747 nmol/L Abnormal Comprehens delia Internal Medicine Work Phone: Comment on above: PATIENT WAS FASTINGP ERFORMED BY: S7 [employer] Ewn9474 [facility] [id number] BY: KALPESH LabBirthday Slamcelena Njwkur22[address] [facility] [id number] Triglyceride mass conc 78 mg/dL Normal Co mprehensive Internal Medicine Work Phone: Comment on above: PATIENT WAS FASTINGP ERFORMED BY: S7 [employer] Hqp3143 [facility] [id number] BY: KALPESH LabBirthday Slam Jvrvfc6280 [facility] [id number] METABOLIC PANEL, COMPREHENSI VE ([id number])Ordered By: Youth Nutritional Monitor on 12-23-2010 Albumin mass conc 4.5 g/dL Normal 3.5-5.[address] [facility] Internal Medicine Work Phone: Comment on above: PATIENT WAS FASTINGP ERFORMED BY: [employer] Xfv9362 [facility] [id number] BY: KALPESH LabCo Xvdlyo9[address] [facility] [id number] Albumin/Globulin mass ratio 2.0 {ratio} Normal 1.1-2.5 [facility] Internal Medicine Work Phone: Comment on above: PATIENT WAS FASTINGP ERFORMED BY: LipoSciLocate[place] Beq4753 [facility] [id number] BY: KALPESH LabAlexia HillBrmqoa2378 [facility] [id number] ALP [Catalytic activity/Vol] 81 U/L Normal 25-150 [facility]; [facility] Internal Medicine Work Phone: ALP enzyme act/vol 81 [iU]/L Normal 25-150 [facility] Internal Medicine Work Phone: Comment on above: PATIENT WAS FASTINGP ERFORMED BY: [employer] Jgr7807 [facility] [id number] BY: KALPESH [facility]CoCap[facility]Ysemmq7806 [facility] [id number] ALT [Catalytic activity/Vol] 15 U/L Normal 0-40 [facility]; [facility] Internal Medicine Work Phone: ALT enzyme act/vol 15 [iU]/L Normal 0-40 [facility] Internal Medicine Work Phone: Comment on above: PATIENT WAS FASTINGP ERFORMED BY: [employer] Byu7040 [facility] [id number] BY: KALPESH LabCocelena Hkvsvm7480 [facility] [id number] AST [Catalytic activity/Vol] 13 U/L Normal 0-40 [facility]; [facility] Internal Medicine Work Phone: AST enzyme act/vol 13 [iU]/L Normal 0-40 [facility] Internal Medicine Work Phone: Comment on above: PATIENT WAS FASTINGP ERFORMED BY: S7 [employer] Myp8411 [facility] [id number] BY: KALPESH [facility] Zojyvx5846 [address] RoadDublin [place] [id number] Bilirubin mass conc 0.5 mg/dL Normal 0.0-1.2 Compr ensive Internal Medicine Work Phone: Comment on above: PATIENT WAS FASTINGP ERFORMED BY: S7 [employer] Qkk3358 [facility] [id number] BY: KALPESH [facility] Eaatvj4331 [address] RoadDublin [place] [id number] Calcium mass conc 9.8 mg/dL Normal 8.7-10.2 Compreh [facility] Work Phone: Comment on above: PATIENT WAS FASTINGP ERFORMED BY: S7 [employer] Wlk7546 [facility] [id number] BY: KALPESH [facility] Tfudub7060 [address] RoadDublin [place] [id number] Chloride molar conc 102 mmol/L Normal 97-108 [facility] Work Phone: Comment on above: PATIENT WAS FASTINGP ERFORMED BY: S7 [employer] Fyy0781 [facility] [id number] BY: KALPESH [facility] Mzbuwf6405 [address] RoadDublin [place] [id number] CO2 molar conc 22 mmol/L Normal 20-32 Comprehens delia Internal Medicine Work Phone: Comment on above: PATIENT WAS FASTINGP ERFORMED BY: S7 [employer] Zzt5246 [facility] [id number] BY: KALPESH [facility] Igbktf5531 [address] RoadDublin [place] [id number] Creatinine mass conc 0.90 mg/dL Normal 0.57-1.00 [facility] Work Phone: Comment on above: PATIENT WAS FASTINGP ERFORMED BY: S7 [employer] Cxk4181 [facility] [id number] BY: KALPESH LabBirthday Slamrp Xpypgt7064 [facility] [id number] GFR/1.73 sq M predicted among blacks MDRD vol rate/area (S/P/Bld) 89 mL/min/{1.73_m2} Normal Comprehe nsive Internal Medicine Work Phone: Comment on above: Note: A persistent e GFR <60 mL/min/1.73 m2 (3 months or more) mayindicate chronic kidney disease. An eGFR >59 mL/min/1.73 m2 with anelevated urine protein also may indicate chronic kidney disease.Calculated using CKD-EPI formula. PATIENT WAS FASTINGP ERFORMED BY: S7 [employer] Dzm1300 [facility] [id number] BY: KALPESH iTaggit Bcvvxd6270 [facility] [id number] GFR/1.73 sq M predicted among non-blacks CKD-EPI vol rate/area (S/P/Bld) 77 mL/min/1.73 Normal Comprehe nsive Internal Medicine Work Phone: Comment on above: PATIENT WAS FASTINGP ERFORMED BY: S7 [employer] Hcb0120 [facility] [id number] BY: KALPESH LabBirthday Slamrp Evvlbj1002 [facility] [id number] Globulin Calculated mass conc (S) 2.2 g/dL Normal 1.5-4.5 [facility] Work Phone: Globulin mass conc (S) 2.2 g/dL Normal 1.5-4.5 Co [facility]erensive [facility] Work Phone: Comment on above: PATIENT WAS FASTINGP ERFORMED BY: S7 [employer] Xjt7917 [facility] [id number] BY: KALPESH LabBirthday Slamrp Nkzkkk68[address] [facility] [id number] Glucose mass conc 90 mg/dL Normal 65-99 Compreh ensive Internal Medicine Work Phone: Comment on above: PATIENT WAS FASTINGP ERFORMED BY: S7 [employer] Kcj9559 [facility] [id number] BY: KALPESH Hilllin[address] RoadDublin [place] [id number] Potassium molar conc 4.4 mmol/L Normal 3.5-5.2 Comp rehensive Internal Medicine Work Phone: Comment on above: PATIENT WAS FASTINGP ERFORMED BY: S7 [employer] Adw6881 [facility] [id number] BY: KALPESH Hilllin[address] RoadDublin [place] [id number] Protein mass conc 6.7 g/dL Normal 6.0-8.5 Compreh ensive Internal Medicine Work Phone: Comment on above: PATIENT WAS FASTINGP ERFORMED BY: S7 [employer] Pul5606 [facility] [id number] BY: KALPESH Millan6370 [address] RoadDuin [place] [id number] Sodium molar conc 136 mmol/L Normal 135-145 Compreh ensive Internal Medicine Work Phone: Comment on above: PATIENT WAS FASTINGP ERFORMED BY: S7 [employer] Lli6222 [facility] [id number] BY: KALPESH Hilllin[address] RoadDublin [place] [id number] Urea nitrogen mass conc 16 mg/dL Normal 6-24 C omprehensive Internal Medicine Work Phone: Comment on above: PATIENT WAS FASTINGP ERFORMED BY: S7 [employer] Hhu4457 [facility] [id number] BY: KALPESH LabAlexia HillWvitkw1221 [address] RoadDublin [place] [id number] Urea nitrogen/Creatinine mass ratio 18 mg/mg Normal 9-23 [facility] Work Phone: Comment on above: PATIENT WAS FASTINGP ERFORMED BY: S7 [employer] Jmq5994 [facility] [id number] BY: KALPESH Millan[address] [facility] [id number] TSH (88073)Ordered By: Jolene m Lumber Sticker on 12-23-2010 Thyrotropin Qn 3.800 {uIU/mL} Normal 0.450-4.50 0 [facility] Work Phone: Comment on above: PATIENT WAS FASTINGP ERFORMED BY: Lexi LipGroupsite Xvn9547 [facility] [id number] BY: KALPESH NanceBirthday Slam Tuniut[address] [facility] [id number] WRIST,MIN 3 VIEWSOrdered By: Youth Nutritional Monitor on 09-01-2010 WRIST,MIN 3 VIEWS See Note Normal Compreh ensive Internal Medicine Work Phone: Comment on above: CLINICAL:Female, 45 years old. The patient presents with distal ulnar pain. X-RAY EXAMINATION - LEFT WRIST TECHNIQUE:Three views of the wrist were obtained. COMPARISON:None. FINDINGS:Normal visualized distal radius and ulna. Normal distal radioulnararticulation. Normal radiocarpal articulation. Normal carpal bones. Normal carpal articulations. Normal carpometacarpal articulation of the thumb. Normal second throughfifth carpometacarpal articulations. Normal visualized metacarpal bones. IMPRESSION:Normal x-ray examination of the wrist. Dictated on 09/01/10 1436 by Dejuan PIERSON,Edwardranscribed on 09/02/10 104 by ITS IMPORTSign by Antonio Zaidi MD on 09/02/10 1041 Sign by: Antonio Zaidi MD CBC (Auto) (12478)Ordered By : Youth Nutritional Monitor on 12-29-2009 Erythrocyte distribution width Auto Ratio (RBC) 13.7 % Normal 11.7-15.0 Comprehen [facility] Internal [facility] Work Phone: Erythrocyte distribution width Ratio (RBC) 13.7 % Normal 11.7-15.0 [facility] Work Phone: Comment on above: PATIENT WAS FASTINGP ERFORMED BY: KALPESH Millan[address] [facility] [id number] Hematocrit Auto Volume Fraction (Bld) 40.7 % Normal 34.0-44.0 [facility] Work Phone: Hematocrit Volume Fraction (Bld) 40.7 % Normal 34.0-44.0 [facility] Internal Medicine Work Phone: Comment on above: PATIENT WAS FASTINGP ERFORMED BY: KALPESH LabCoCapital Health System [facility])Bbwbfi5613 [facility] [id number] Hemoglobin mass conc (Bld) 14.5 g/dL Normal 11.5-15.0 [facility] Work Phone: Comment on above: PATIENT WAS FASTINGP ERFORMED BY: KALPESH LabC[facility] Oxcnvq6666 [facility] [id number] MCH Auto Entitic mass (RBC) 29.6 pg Normal 27.0-34.0 [facility] Internal Medicine Work Phone: MCH Entitic mass (RBC) 29.6 pg Normal 27.0-34.0 [facility] Internal Medicine Work Phone: Comment on above: PATIENT WAS FASTINGP ERFORMED BY: KALPESH LabInsight Surgical Hospital[address] [facility] [id number] MCHC Auto mass conc (RBC) 35.6 g/dL Normal 32.0-36.0 [facility] Internal Medicine Work Phone: MCHC mass conc (RBC) 35.6 g/dL Normal 32.0-36.0 [facility] Internal Medicine Work Phone: Comment on above: PATIENT WAS FASTINGP ERFORMED BY: LabInsight Surgical Hospital[address] [facility] [id number] MCV Auto Entitic volume (RBC) 83 fL Normal 80-98 [facility] Work Phone: MCV Entitic volume (RBC) 83 fL Normal 80-98 [facility] Internal Medicine Work Phone: Comment on above: PATIENT WAS FASTINGP ERFORMED BY: KALPESH LabInsight Surgical Hospital[address] [facility] [id number] Platelets #/vol (Bld) 214 {x10E3/uL} Normal 140-415 [facility] Work Phone: Comment on above: PATIENT WAS FASTINGP ERFORMED BY: [place] 6363970 [facility] [id number] Platelets (Bld) [#/Vol] 214 10*3/uL Normal 140-415 [facility]; [facility] Work Phone: Platelets Auto #/vol (Bld) 214 {x10E3/uL} Normal 140-415 [facility] Work Phone: RBC #/vol (Bld) 4.90 {x10E6/uL} Normal 3.80-5.10 [facility] Work Phone: Comment on above: PATIENT WAS FASTINGP ERFORMED BY: [place] 6363970 [facility] [id number] RBC (Bld) [#/Vol] 4.90 10*6/uL Normal 3.80-5.10 Compr ensive Internal Medicine; [facility] Work Phone: RBC Auto #/vol (Bld) 4.90 {x10E6/uL} Normal 3.80-5.10 [facility] Work Phone: WBC #/vol (Bld) 5.6 {x10E3/uL} Normal 4.0-10.5 Compr ensive Internal Medicine Work Phone: Comment on above: PATIENT WAS FASTINGP ERFORMED BY: [place] 6363970 [facility] [id number] WBC (Bld) [#/Vol] 5.6 10*3/uL Normal 4.0-10.5 Compre [facility] Internal Medicine; [facility] Work Phone: WBC Auto #/vol (Bld) 5.6 {x10E3/uL} Normal 4.0-10.5 [facility] Internal Medicine Work Phone: Cortisol, Urinary FreeOrdere d By: Youth Nutritional Monitor on 12-29-2009 Cortisol Free mass conc (U) 12 ug/L Normal [facility] Work Phone: Comment on above: PERFORMED BY: [facility] Alexia [address] [id number] Information: 919@730AM 12/29@630AM Cortisol Free mass/time (24H U) 14 {ug/24_hr} Normal 0-50 [facility] Work Phone: Comment on above: PERFORMED BY: [facility] Alexia [address] [id number] Information: 919@730AM 12/29@630AM Lipid Panel (13181)Ordered B y: Youth Nutritional Monitor on 12-29-2009 Cholesterol in HDL mass conc 39 mg/dL Abnormal [facility] Work Phone: Comment on above: According to ATP-III Guidelines, HDL-C >59 mg/dL is considered anegative risk factor for CHD. PATIENT WAS FASTINGP ERFORMED BY: KALPESH [facility] Rraxaa1839 [address] EdRoverDublin [place] [id number] Cholesterol in LDL mass conc 110 mg/dL Abnormal 0-99 [facility] Work Phone: Comment on above: PATIENT WAS FASTINGP ERFORMED BY: KALPESH [facility] Aiajmg6817 [address] RoadDublin [place] [id number] Cholesterol in LDL/Cholesterol in HDL mass ratio 2.8 {ratio_units} Normal 0.0-3.2 [facility] Work Phone: Comment on above: PATIENT WAS FASTINGP ERFORMED BY: KALPESH [facility] Xrmjsi6851 [address] EdRoverDuin [place] [id number] Cholesterol in VLDL mass conc 19 mg/dL Normal 5-40 [facility] Work Phone: Comment on above: PATIENT WAS FASTINGP ERFORMED BY: KALPESH [facility] Sircaz3765 [address] RoadDublin [place] [id number] Cholesterol mass conc 168 mg/dL Normal 100-199 Com prehensive Internal Medicine Work Phone: Comment on above: PATIENT WAS FASTINGP ERFORMED BY: KALPESH [facility] Fkwtbc0811 [address] EdRoverDublin [place] [id number] Triglyceride mass conc 96 mg/dL Normal 0-149 Co mprehensive Internal Medicine Work Phone: Comment on above: PATIENT WAS FASTINGP ERFORMED BY: KALPESH [facility] Ygbwuq0845 [facility] [id number] Metabolic Panel, Comprehensi ve (50995)Ordered By: Youth Nutritional Monitor on 12-29-2009 Albumin mass conc 4.2 g/dL Normal 3.5-5.5 [facility]preh [facility] Internal Medicine Work Phone: Comment on above: PATIENT WAS FASTINGP ERFORMED BY: CB [facility] Bfvxnz9886 [facility] [id number] Information: 03395,[id number] Albumin/Globulin mass ratio 1.8 {ratio} Normal 1.1-2.5 [facility] Internal Medicine Work Phone: Comment on above: PATIENT WAS FASTINGP ERFORMED BY: KALPESH LabCo Alfbgh4[address] [facility] [id number] Information: 15853,[id number] ALP [Catalytic activity/Vol] 76 U/L Normal 25-150 [facility]; [facility] Internal Medicine Work Phone: ALP enzyme act/vol 76 [iU]/L Normal 25-150 [facility] Internal Medicine Work Phone: Comment on above: PATIENT WAS FASTINGP ERFORMED BY: LabCo Mpgbfn0537 [facility] [id number] Information: 02981,[id number] ALT [Catalytic activity/Vol] 10 U/L Normal 0-40 [facility] Internal Medicine; [facility] Internal Medicine Work Phone: ALT enzyme act/vol 10 [iU]/L Normal 0-40 [facility] Internal Medicine Work Phone: Comment on above: PATIENT WAS FASTINGP ERFORMED BY: LabCo Qycdem6699 [facility] [id number] Information: 76172,[id number] AST [Catalytic activity/Vol] 11 U/L Normal 0-40 [facility]; [facility] Internal Medicine Work Phone: AST enzyme act/vol 11 [iU]/L Normal 0-40 Compre hensive Internal Medicine Work Phone: Comment on above: PATIENT WAS FASTINGP ERFORMED BY: KALPESH [facility] Rmwiir5761 [facility] [id number] Information: [id number],[id number] Bilirubin mass conc 0.3 mg/dL Normal 0.0-1.2 Compr ensive Internal Medicine Work Phone: Comment on above: PATIENT WAS FASTINGP ERFORMED BY: CB [facility] Vfcytg9640 [facility] [id number] Information: 03841,[id number] Calcium mass conc 9.9 mg/dL Normal 8.7-10.2 Compreh [facility] Internal [facility] Work Phone: Comment on above: PATIENT WAS FASTINGP ERFORMED BY: KALPESH [facility] Rrnesy17[address] [facility] [id number] Information: 29030,M56840 Chloride molar conc 104 mmol/L Normal 97-108 Compr [facility] Internal Medicine Work Phone: Comment on above: PATIENT WAS FASTINGP ERFORMED BY: KLAPESH [facility] Aiaxgy5542 [facility] [id number] Information: 88611,[id number] CO2 molar conc 22 mmol/L Normal 20-32 Comprehens delia Internal Medicine Work Phone: Comment on above: PATIENT WAS FASTINGP ERFORMED BY: KALPESH [facility] Lazrgz4523 [facility] [id number] Information: 77052,[id number] Creatinine mass conc 0.97 mg/dL Normal 0.57-1.00 Comp [facility] Internal Medicine Work Phone: Comment on above: PATIENT WAS FASTINGP ERFORMED BY: CB [facility] Kkhzll9829 [facility] [id number] Information: 59913,[id number] GFR/1.73 sq M predicted among blacks MDRD vol rate/area (S/P/Bld) mL/min/{1.73_m2} Normal Comprehensi ve Internal Medicine Work Phone: Comment on above: Note: Persistent red uction for 3 months or more in an eGFR<60 mL/min/1.73 m2 defines CKD. Patients with eGFR values>/=60 mL/min/1.73 m2 may also have CKD if evidence of persistentproteinuria is present. Additional information may be found [email or web address]. PATIENT WAS FASTINGP ERFORMED BY: KALPESH [facility] Hnboyo6[address] [facility] [id number] Information: 92370,[id number] GFR/1.73 sq M.predicted MDRD (S/P/Bld) [Vol rate/Area] mL/min/{1.73_m2} Normal [facility] Work Phone: Comment on above: PATIENT WAS FASTINGP ERFORMED BY: KALPESH [facility] Nanvtt1875 [facility] [id number] Information: 25920,M03351 GFR/1.73 sq M.predicted MDRD vol rate/area mL/min/{1.73_m2} Normal Comprehensiv e Internal Medicine Work Phone: Comment on above: PATIENT WAS FASTINGP ERFORMED BY: KALPESH [facility] Ngjccn16[address] [facility] [id number] Information: 10432,[id number] Globulin Calculated mass conc (S) 2.4 g/dL Normal 1.5-4.5 [facility] Work Phone: Globulin mass conc (S) 2.4 g/dL Normal 1.5-4.5 Co [facility] Internal Medicine Work Phone: Comment on above: PATIENT WAS FASTINGP ERFORMED BY: [facility] Dgwfqy9744 [facility] [id number] Information: 36966,[id number] Glucose mass conc 106 mg/dL Abnormal 65-99 Compreh ensive Internal Medicine Work Phone: Comment on above: PATIENT WAS FASTINGP ERFORMED BY: [facility] Dwsyil18[address] [facility] [id number] Information: 34611,[id number] Potassium molar conc 4.7 mmol/L Normal 3.5-5.2 Comp rehensive Internal Medicine Work Phone: Comment on above: PATIENT WAS FASTINGP ERFORMED BY: KALPESH [facility] Hqadiv2645 [facility] [id number] Information: 47373,[id number] Protein mass conc 6.6 g/dL Normal 6.0-8.5 Compreh ensive Internal Medicine Work Phone: Comment on above: PATIENT WAS FASTINGP ERFORMED BY: KALPESH [facility]Co Ouoctj36[address] [facility] [id number] Information: 89350,Q67639 Sodium molar conc 137 mmol/L Normal 135-145 Compreh ensive Internal Medicine Work Phone: Comment on above: PATIENT WAS FASTINGP ERFORMED BY: KALPESH [facility] Mgxjxd7597 [facility] [id number] Information: 46863,[id number] Urea nitrogen mass conc 18 mg/dL Normal 5-26 C omprehensive Internal Medicine Work Phone: Comment on above: PATIENT WAS FASTINGP ERFORMED BY: KALPESH [facility] Ofhlfi1369 [facility] [id number] Information: 57963,[id number] Urea nitrogen/Creatinine mass ratio 19 mg/mg Normal 8-27 [facility] Work Phone: Comment on above: PATIENT WAS FASTINGP ERFORMED BY: [facility] Pbjeap6440 [facility] [id number] Information: 26191,[id number] TSH (07510)Ordered By: Jolene Reeves on 12-29-2009 Thyrotropin Qn 3.370 {uIU/mL} Normal 0.450-4.50 0 [facility] Work Phone: Comment on above: PATIENT WAS FASTINGP ERFORMED BY: KALPESH [facility] Injzpj24[address] [facility] [id number] Rapid Strep Test, Office (48 420)Ordered By: Maricarmen Bethea on 05-28-2009 S. pyogenes Ag EIA Ql (Throat) Negative Normal [facility]; [facility] Work Phone: S. pyogenes Ag IA Ql (Unsp spec) Negative Normal [facility] Work Phone: CBCD,SMEAR DIFFOrdered By: Elena juddtem Lumber Sticker on 05-11-2007 Eosinophils/100 WBC (Bld) 2 % Normal 0-5 [facility] Work Phone: Eosinophils/100 WBC Auto (Bld) 2 % Normal 0-5 [facility] Work Phone: Erythrocyte distribution width Auto Ratio (RBC) 13.8 % Normal 11.6-14.6 [facility] Internal Medicine Work Phone: Erythrocyte distribution width Ratio (RBC) 13.8 % Normal 11.6-14.6 [facility] Work Phone: Hematocrit Auto Volume Fraction (Bld) 38.7 % Normal 37-47 [facility] Work Phone: Hematocrit Volume Fraction (Bld) 38.7 % Normal 37-47 [facility] Work Phone: Hemoglobin mass conc (Bld) 13.7 g/dL Normal 12.0-16.0 [facility] Work Phone: Lymphocytes/100 WBC (Bld) 38 % Normal 19-41 [facility] Work Phone: Lymphocytes/100 WBC Auto (Bld) 38 % Normal 19-41 [facility] Work Phone: MCH Auto Entitic mass (RBC) 28.7 pg Normal 27.0-32.0 [facility] Work Phone: MCH Entitic mass (RBC) 28.7 pg Normal 27.0-32.0 Co mprehensive Internal Medicine Work Phone: MCHC Auto mass conc (RBC) 35.4 g/dL Normal 32-36 [facility] Work Phone: MCHC mass conc (RBC) 35.4 g/dL Normal 32-36 Comp rehensive Internal Medicine Work Phone: MCV Auto Entitic volume (RBC) 81.2 fL Normal 81-99 [facility] Work Phone: MCV Entitic volume (RBC) 81.2 fL Normal 81-99 [facility] Work Phone: Monocytes/100 WBC (Bld) 7 % Normal 0-10 C omprehensive Internal Medicine Work Phone: Monocytes/100 WBC Auto (Bld) 7 % Normal 0-10 [facility] Work Phone: Platelets #/vol (Bld) SeeNote Normal Com prehensive Internal Medicine Work Phone: Comment on above: Result: ADEQUATE Platelets #/vol (Bld) 217 10*3/uL Normal 150-450 Co [facility] Work Phone: Platelets Auto #/vol (Bld) 217 10*3/uL Normal 150-450 [facility] Internal Medicine Work Phone: RBC #/vol (Bld) 4.77 {M/mm3} Normal 4.2-5.4 Compreh [facility] Work Phone: RBC Auto #/vol (Bld) 4.77 {M/mm3} Normal 4.2-5.4 [facility] Work Phone: WBC #/vol (Bld) 4.4 10*3/uL Normal 4.4-11.0 Comprehe [facility] Internal Medicine Work Phone: WBC Auto #/vol (Bld) 4.4 10*3/uL Normal 4.4-11.0 Com prehensive Internal Medicine Work Phone: CBCD,SMEAR DIFF 100 1 Normal Comprehen [facility] Internal Medicine Work Phone: CBCD,SMEAR DIFF SeeNote Normal Comprehen [facility] Internal Medicine Work Phone: Comment on above: Result: ADEQUATE Result: NORM C+C CBCD,SMEAR DIFF 53 % Normal 47-70 Comprehen [facility] Internal Medicine Work Phone: COMP METABOLICOrdered By: Sy stem Lumber Sticker on 05-11-2007 Albumin mass conc 4.0 g/dL Normal 3.4-5.0 Compreh ensive Internal Medicine Work Phone: Albumin/Globulin mass ratio 1.3 {RATIO} Normal 0.9-2.4 [facility] Internal Medicine Work Phone: ALP enzyme act/vol 91 U/L Normal 50-136 [facility] Internal Medicine Work Phone: ALT enzyme act/vol 30 [iU]/L Normal 30-65 [facility] Internal Medicine Work Phone: Anion gap 3 molar conc 10 mmol/L Normal 5-15 Co [facility] Internal Medicine Work Phone: Anion gap molar conc 10 mmol/L Normal 5-15 [facility] Internal Medicine Work Phone: AST enzyme act/vol 22 U/L Normal 15-37 [facility] Internal Medicine Work Phone: Bilirubin mass conc 0.70 mg/dL Normal 0.00-1.00 [facility] Internal Medicine Work Phone: Calcium mass conc 9.5 mg/dL Normal 8.5-10.[address] [facility] Internal Medicine Work Phone: Chloride molar conc 97 mmol/L Abnormal 98-107 [facility] Internal Medicine Work Phone: CO2 molar conc 30.7 mmol/L Normal 21.0-32.0 [facility] Work Phone: Comment on above: Please Note Refer ence Interval Change Creatinine mass conc 0.9 mg/dL Normal 0.6-1.0 [facility] Internal Medicine Work Phone: Globulin Calculated mass conc (S) 3.1 g/dL Normal 2.7-4.2 [facility] Internal Medicine Work Phone: Comment on above: Please Note Refer ence Interval Change Globulin mass conc (S) 3.1 g/dL Normal 2.7-4.2 [facility] Internal Medicine Work Phone: Comment on above: Please Note Refer ence Interval Change Glucose mass conc 92 mg/dL Normal 70-[address] [facility] Internal Medicine Work Phone: Potassium molar conc 3.7 mmol/L Normal 3.5-5.1 Comp rehensive Internal Medicine Work Phone: Protein mass conc 7.1 g/dL Normal 6.4-8.2 Compreh ensive Internal Medicine Work Phone: Sodium molar conc 138 mmol/L Normal 136-145 Compreh ensive Internal Medicine Work Phone: Urea nitrogen mass conc 12 mg/dL Normal 7-18 [facility] Internal Medicine Work Phone: Urea nitrogen/Creatinine mass ratio 13.3 {RATIO} Normal 10-20 [facility] Work Phone: LIPIDOrdered By: [employer] olga on 05-11-2007 Cholesterol in HDL mass conc 35 mg/dL Normal [facility] Work Phone: Comment on above: Reference Range HDL <40 mg/dL Low HDL Cholesterol HDL >or= 60 mg/dL High HDL Cholesterol Cholesterol in LDL mass conc 116 mg/dL Normal 0-130 [facility] Work Phone: Cholesterol in VLDL mass conc 25 mg/dL Normal 5-40 [facility] Work Phone: Cholesterol mass conc 176 mg/dL Normal Com prehensive Internal Medicine Work Phone: Comment on above: <200 mg/dL Desirable 200-240 mg/dL Borderline >240 mg/dL High Risk Triglyceride mass conc 123 mg/dL Normal Co [facility] Internal Medicine Work Phone: Comment on above: Serum Triglycerides Reference Interval Normal <150 mg/dL Borderline high 150 - 199 mg/dL High 200 - 499 mg/dL Very High > or = 500 mg/dL BMPOrdered By: System [employer] r on 02-14-2006 Anion gap 3 molar conc 9 mmol/L Normal 5-15 [facility] Internal Medicine Work Phone: Anion gap molar conc 9 mmol/L Normal 5-15 Comp rehensive Internal Medicine Work Phone: Comment on above: COMMENTS: BED 1Preca utions*: NOT APPLICABLEINDICATE CK '1', '2', '3', OR 'R' FOR RANDOM: 1 Calcium mass conc 9.1 mg/dL Normal 8.5-10.1 [facility] Internal Medicine Work Phone: Comment on above: COMMENTS: [address] hung*: NOT APPLICABLEINDICATE CK '1', '2', '3', OR 'R' FOR RANDOM: 1 Chloride molar conc 104 mmol/L Normal 98-107 Compr [facility] Internal Medicine Work Phone: Comment on above: COMMENTS: [address] hung*: NOT APPLICABLEINDICATE CK '1', '2', '3', OR 'R' FOR RANDOM: 1 CO2 molar conc 27.0 mmol/L Normal 22.0-29.0 [facility] Work Phone: Comment on above: COMMENTS: [address] hung*: NOT APPLICABLEINDICATE CK '1', '2', '3', OR 'R' FOR RANDOM: 1 Creatinine mass conc 0.8 mg/dL Normal 0.6-1.0 [facility] Internal Medicine Work Phone: Comment on above: COMMENTS: [address] hung*: NOT APPLICABLEINDICATE CK '1', '2', '3', OR 'R' FOR RANDOM: 1 Glucose mass conc 104 mg/dL Normal 70-110 [facility] Internal Medicine Work Phone: Comment on above: COMMENTS: [address] hung*: NOT APPLICABLEINDICATE CK '1', '2', '3', OR 'R' FOR RANDOM: 1 Potassium molar conc 4.2 mmol/L Normal 3.5-5.1 [facility] Internal Medicine Work Phone: Comment on above: COMMENTS: [address] hung*: NOT APPLICABLEINDICATE CK '1', '2', '3', OR 'R' FOR RANDOM: 1 Sodium molar conc 140 mmol/L Normal 136-145 [facility] Internal Medicine Work Phone: Comment on above: COMMENTS: [address] hung*: NOT APPLICABLEINDICATE CK '1', '2', '3', OR 'R' FOR RANDOM: 1 Urea nitrogen mass conc 15 mg/dL Normal 7-18 [facility] Internal Medicine Work Phone: Comment on above: COMMENTS: BED 1Preca utions*: NOT APPLICABLEINDICATE CK '1', '2', '3', OR 'R' FOR RANDOM: 1 Urea nitrogen/Creatinine mass ratio 18.8 {RATIO} Normal 10-20 [facility] Work Phone: Comment on above: COMMENTS: BED 1Preca utions*: NOT APPLICABLEINDICATE CK '1', '2', '3', OR 'R' FOR RANDOM: 1 CBCDOrdered By: [employer] er on 02-14-2006 Basophils/100 WBC (Bld) 0.8 % Normal 0-1 C [facility] Internal Medicine Work Phone: Comment on above: COMMENTS: BED 1Preca utions*: NOT APPLICABLE Basophils/100 WBC Auto (Bld) 0.8 % Normal 0-1 [facility] Work Phone: Eosinophils/100 WBC (Bld) 2.7 % Normal 0-5 [facility] Work Phone: Comment on above: COMMENTS: BED 1Preca utions*: NOT APPLICABLE Eosinophils/100 WBC Auto (Bld) 2.7 % Normal 0-5 [facility] Work Phone: Erythrocyte distribution width Auto Ratio (RBC) 12.9 % Normal 11.6-14.6 [facility] Internal Medicine Work Phone: Erythrocyte distribution width Ratio (RBC) 12.9 % Normal 11.6-14.6 [facility] Internal Medicine Work Phone: Comment on above: COMMENTS: BED 1Preca utions*: NOT APPLICABLE Hematocrit Auto Volume Fraction (Bld) 36.9 % Abnormal 37-47 [facility] Work Phone: Hematocrit Volume Fraction (Bld) 36.9 % Abnormal 37-47 [facility] Work Phone: Comment on above: COMMENTS: BED 1Preca utions*: NOT APPLICABLE Hemoglobin mass conc (Bld) 13.1 g/dL Normal 12.0-16.0 [facility] Internal Medicine Work Phone: Comment on above: COMMENTS: BED 1Preca utions*: NOT APPLICABLE Lymphocytes/100 WBC (Bld) 36.3 % Normal 19-41 [facility] Work Phone: Comment on above: COMMENTS: [facility] 1Precmelvi persaud*: NOT APPLICABLE Lymphocytes/100 WBC Auto (Bld) 36.3 % Normal 19-41 [facility] Work Phone: MCH Auto Entitic mass (RBC) 28.8 pg Normal 27.0-32.0 [facility] Work Phone: MCH Entitic mass (RBC) 28.8 pg Normal 27.0-32.0 [facility] Work Phone: Comment on above: COMMENTS: [facility] 1Precmelvi persaud*: NOT APPLICABLE MCHC Auto mass conc (RBC) 35.6 g/dL Normal 32-36 [facility] Work Phone: MCHC mass conc (RBC) 35.6 g/dL Normal 32-36 Comp [facility] Internal Medicine Work Phone: Comment on above: COMMENTS: [facility] 1Precmelvi persaud*: NOT APPLICABLE MCV Auto Entitic volume (RBC) 80.9 fL Abnormal 81-99 [facility] Work Phone: MCV Entitic volume (RBC) 80.9 fL Abnormal 81-99 [facility] Internal Medicine Work Phone: Comment on above: COMMENTS: [facility] 1Pmatheus persaud*: NOT APPLICABLE Monocytes/100 WBC (Bld) 7.2 % Normal 0-10 [facility] Internal Medicine Work Phone: Comment on above: COMMENTS: [facility] 1Precmelvi persaud*: NOT APPLICABLE Monocytes/100 WBC Auto (Bld) 7.2 % Normal 0-10 [facility] Work Phone: Neutrophils/100 WBC (Bld) 53.0 % Normal 47-70 [facility] Work Phone: Comment on above: COMMENTS: [facility] 1Precmelvi persaud*: NOT APPLICABLE Neutrophils/100 WBC Auto (Bld) 53.0 % Normal 47-70 [facility] Work Phone: Platelet mean volume Auto Entitic volume (Bld) 8.9 fL Normal 6.5-12.0 [facility] Work Phone: Platelet mean volume Entitic volume (Bld) 8.9 fL Normal 6.5-12.0 Comprehensi Internal Medicine Work Phone: Comment on above: COMMENTS: BED 1Preca utichristine*: NOT APPLICABLE Platelets #/vol (Bld) 223 10*3/uL Normal 150-450 [facility] Work Phone: Comment on above: COMMENTS: BED 1Preca utions*: NOT APPLICABLE Platelets Auto #/vol (Bld) 223 10*3/uL Normal 150-450 [facility] Work Phone: RBC #/vol (Bld) 4.56 {M/mm3} Normal 4.2-5.4 [facility] Work Phone: Comment on above: COMMENTS: BED 1Preca utichristine*: NOT APPLICABLE RBC Auto #/vol (Bld) 4.56 {M/mm3} Normal 4.2-5.4 [facility] Internal Medicine Work Phone: WBC #/vol (Bld) 5.9 10*3/uL Normal 4.4-11.0 Comprehe [facility] Internal Medicine Work Phone: Comment on above: COMMENTS: BED 1Precmelvi persaud*: NOT APPLICABLE WBC Auto #/vol (Bld) 5.9 10*3/uL Normal 4.4-11.0 [facility] Work Phone: CPK TOTALOrdered By: Youth Nutritional Monitor on 02-14-2006 CPK TOTAL 39 U/L Normal 21-215 [facility] Internal Medicine Work Phone: Comment on above: COMMENTS: 2 SETS CAR DIAC ENZYMESPrecautions*: NOT APPLICABLEINDICATE CK '1', '2', '3', OR 'R' FOR RANDOM: 2 CPK TOTAL 58 U/L Normal 21-215 [facility] Internal Medicine Work Phone: Comment on above: COMMENTS: BED 1Preca utions*: NOT APPLICABLEINDICATE CK '1', '2', '3', OR 'R' FOR RANDOM: 1 CPKMBOrdered By: System Isidra espinoza on 02-14-2006 CK.MB mass conc 0.8 ng/mL Normal 0.0-5.0 [facility] Internal Medicine Work Phone: Comment on above: CK-MB and RI Interpr etation MB Relative Index Non-AMI 5 5 > 4 COMMENTS: [facility] 1Pessentia healthmelvi persaud*: NOT APPLICABLEINDICATE CK '1', '2', '3', OR 'R' FOR RANDOM: 1 CK.MB mass conc 0.5 ng/mL Normal 0.0-5.0 [facility] Internal Medicine Work Phone: Comment on above: CK-MB and RI Interpr etation MB Relative Index Non-AMI 5 5 > 4 COMMENTS: 2 SETS CAR DIAC ENZYMESPrecautions*: NOT APPLICABLEINDICATE CK '1', '2', '3', OR 'R' FOR RANDOM: 2 D-DIMER QUANTOrdered By: Jaimie tem Lumber Sticker on 02-14-2006 D-DIMER QUANT <200 Normal [facility] Internal Medicine Work Phone: Comment on above: NORMAL D-Dimer level indicates no DVT or PE. COMMENTS: [facility] 1Pessentia healthmelvi persaud*: NOT APPLICABLE PTTOrdered By: System Manage r on 02-14-2006 aPTT Coag time (Bld) 30.4 s Normal 24.6-36.6 [facility] Internal Medicine Work Phone: Comment on above: COMMENTS: [address] persaud*: NOT APPLICABLE TROPONIN-IOrdered By: Youth Nutritional Monitor on 02-14-2006 Troponin I.cardiac mass conc 0.05 ng/mL Normal [facility] Internal Medicine Work Phone: Comment on above: TROPONIN-I EXPECTED VALUES < 0.50 NEGATIVE 0.50 - 1.49 INDETERMINANT > OR = 1.50 SUGGEST [place] COMMENTS: [facility] 1Pmatheus persaud*: NOT APPLICABLEINDICATE CK '1', '2', '3', OR 'R' FOR RANDOM: 1 Troponin I.cardiac mass conc ng/mL Normal [facility] Internal Medicine Work Phone: Comment on above: TROPONIN-I EXPECTED VALUES < 0.50 NEGATIVE 0.50 - 1.49 INDETERMINANT > OR = 1.50 SUGGEST [place] COMMENTS: 2 SETS CAR DIAC ENZYMESPrecautions*: NOT APPLICABLEINDICATE CK '1', '2', '3', OR 'R' FOR RANDOM: 2 Vital Signs Date Time Vital Sign Value Performing Clinician Facility 11-07-2024 08:38-0400 Body height 162.[address] Renetta Angulo DO Work Phone: [facility] 11-07-2024 08:38-0400 Body mass index (BMI) [Ratio] 29.9 kg/m2 Dr. Renetta Angulo DO Work Phone: [facility] 11-07-2024 08:38-0400 Body temperature 98.2 [degF] Dr. Renetta Angulo DO Work Phone: [facility] 11-07-2024 08:38-0400 Body weight 79.[address] Renetta Angulo DO Work Phone: [facility] 11-07-2024 08:38-0400 Diastolic blood pressure 80 mm[Hg] Dr. Renetta Angulo DO Work Phone: [facility] 11-07-2024 08:38-0400 Heart rate 62 /min Dr. Renetta Angulo DO Work Phone: [facility] 11-07-2024 08:38-0400 Respiratory rate 16 /min Dr. Renetta Angulo DO Work Phone: [facility] 11-07-2024 08:38-0400 SaO2% (BldA) [Mass fraction] 98 % Dr. Renetta Angulo DO Work Phone: [facility] 11-07-2024 08:38-0400 Systolic blood pressure 132 mm[Hg] Dr. Renetta Angulo DO Work Phone: [facility] 12-20-2022 11:43-0400 Body height 162.56 cm Kevin Olea LPN [facility]; [facility] Work Phone: 12-20-2022 11:43-0400 Body mass index (BMI) [Ratio] 32.1 kg/m2 [facility]; [facility] Work Phone: 12-20-2022 11:43-0400 Body surface area Derived from formula 1.9 m2 [facility]; [facility] Work Phone: 12-20-2022 11:43-0400 Body temperature 97.6 [degF] [facility]; [facility] Work Phone: 12-20-2022 11:43-0400 Body weight 84.82 kg [facility]; [facility] Work Phone: 12-20-2022 11:43-0400 Diastolic blood pressure 70 mm[Hg] [facility]; [facility] Work Phone: 12-20-2022 11:43-0400 Heart rate 60 /min [facility]; [facility] Work Phone: 12-20-2022 11:43-0400 Respiratory rate 18 /min [facility]; [facility] Work Phone: 12-20-2022 11:43-0400 SaO2% (BldA) [Mass fraction] 99 % [facility]; [facility] Work Phone: 12-20-2022 11:43-0400 Systolic blood pressure 120 mm[Hg] [facility]; [facility] Work Phone: 12-13-2022 09:37-0400 Body temperature 96.91 [degF] Parrish Azevedo APRN.FIRE PROTECTION INSPECTOR Work Phone: [facility] 12-13-2022 09:37-0400 Body weight 86.64 kg Parrish Azevedo APRN.FIRE PROTECTION INSPECTOR Work Phone: [facility] 12-13-2022 09:37-0400 Diastolic blood pressure 82 mm[Hg] Parrish Azevedo APRN.FIRE PROTECTION INSPECTOR Work Phone: [facility] 12-13-2022 09:37-0400 Heart rate 70 /min Parrish Azevedo APRN.FIRE PROTECTION INSPECTOR Work Phone: [facility] 12-13-2022 09:37-0400 Respiratory rate 16 /min Parrish Azevedo APRN.FIRE PROTECTION INSPECTOR Work Phone: [facility] 12-13-2022 09:37-0400 SaO2% (BldA) [Mass fraction] 100 % Parrish Azevedo APRN.FIRE PROTECTION INSPECTOR Work Phone: [facility] 12-13-2022 09:37-0400 Systolic blood pressure 118 mm[Hg] Parrish Azevedo APRN.FIRE PROTECTION INSPECTOR Work Phone: [facility] 04-15-2022 14:13-0500 Body height 162.56 cm [facility]; [facility] Work Phone: 04-15-2022 14:13-0500 Body mass index (BMI) [Ratio] 33.86 kg/m2 [facility]; [facility] Work Phone: 04-15-2022 14:13-0500 Body surface area Derived from formula 1.94 m2 [facility]; [facility] Work Phone: 04-15-2022 14:13-0500 Body temperature 96.1 [degF] [facility]; [facility] Work Phone: 04-15-2022 14:13-0500 Body weight 89.47 kg [facility]; [facility] Work Phone: 04-15-2022 14:13-0500 Diastolic blood pressure 80 mm[Hg] [facility]; [facility] Work Phone: 04-15-2022 14:13-0500 Heart rate 56 /min [facility]; [facility] Work Phone: 04-15-2022 14:13-0500 Respiratory rate 16 /min [facility]; [facility] Work Phone: 04-15-2022 14:13-0500 SaO2% (BldA) [Mass fraction] 99 % [facility]; [facility] Work Phone: 04-15-2022 14:13-0500 Systolic blood pressure 120 mm[Hg] [facility]; [facility] Work Phone: 12-07-2021 15:39-0400 Body height 162.56 cm [facility]; [facility] Work Phone: 12-07-2021 15:39-0400 Body mass index (BMI) [Ratio] 33.86 kg/m2 [facility]; [facility] Work Phone: 12-07-2021 15:39-0400 Body surface area Derived from formula 1.94 m2 [facility] Internal [facility]; [facility] Work Phone: 12-07-2021 15:39-0400 Body temperature 97.3 [degF] [facility]; [facility] Work Phone: 12-07-2021 15:39-0400 Body weight 89.47 kg [facility]; [facility] Work Phone: 12-07-2021 15:39-0400 Diastolic blood pressure 80 mm[Hg] [facility]; [facility] Work Phone: 12-07-2021 15:39-0400 Heart rate 67 /min [facility]; [facility] Work Phone: 12-07-2021 15:39-0400 Respiratory rate 16 /min [facility]; [facility] Work Phone: 12-07-2021 15:39-0400 SaO2% (BldA) [Mass fraction] 98 % Juan R [facility]; [facility] Work Phone: 12-07-2021 15:39-0400 Systolic blood pressure 138 mm[Hg] Juan R [facility]; [facility] Work Phone: 10-07-2021 11:13-0400 Body height 162.[address] Renetta Angulo Work Phone: [facility] Work Phone: 10-07-2021 11:13-0400 Body mass index (BMI) [Ratio] 35 kg/m2 Dr. Renetta Angulo Work Phone: [facility] Work Phone: 10-07-2021 11:13-0400 Body weight 92.[address] Renetta Angulo Work Phone: [facility] Work Phone: 01-12-2021 16:18-0400 Body height 162.56 cm Ingrid Sandoval MA [facility]; [facility] Work Phone: 01-12-2021 16:18-0400 Body mass index (BMI) [Ratio] 36.8 kg/m2 Ingrid Sandoval MA [facility]; [facility] Work Phone: 01-12-2021 16:18-0400 Body surface area Derived from formula 2.01 m2 Ignrid Sandoval MA [facility]; [facility] Work Phone: 01-12-2021 16:18-0400 Body temperature 97.1 [degF] Ingrid Sandoval MA [facility]; [facility] Work Phone: 01-12-2021 16:18-0400 Body weight 97.24 kg Ingrid Sandoval MA [facility]; [facility] Work Phone: 01-12-2021 16:18-0400 Diastolic blood pressure 80 mm[Hg] Ingrid Sandoval MA [facility]; [facility] Work Phone: 01-12-2021 16:18-0400 Heart rate 56 /min Ingrid Sandoval MA [facility]; [facility] Work Phone: 01-12-2021 16:18-0400 SaO2% (BldA) [Mass fraction] 99 % Ingrid Sandoval MA [facility]; [facility] Work Phone: 01-12-2021 16:18-0400 Systolic blood pressure 128 mm[Hg] Ingrid Sandoval MA [facility]; [facility] Work Phone: 12-22-2020 11:19-0400 Body height 162.56 cm Isabell Acosta LPN [facility]; [facility] Work Phone: 12-22-2020 11:19-0400 Body mass index (BMI) [Ratio] 33.19 kg/m2 Isabell Acosta LPN [facility]; [facility] Work Phone: 12-22-2020 11:19-0400 Body surface area Derived from formula 1.93 m2 Isabell Acosta LPN [facility]; [facility] Work Phone: 12-22-2020 11:19-0400 Body temperature 97.1 [degF] Isabell Acosta LPN [facility]; [facility] Work Phone: 12-22-2020 11:19-0400 Body weight 87.71 kg Isabell Acosta LPN [facility]; [facility] Work Phone: 12-22-2020 11:19-0400 Diastolic blood pressure 88 mm[Hg] Isabell Acosta LPN [facility]; [facility] Work Phone: 12-22-2020 11:19-0400 Heart rate 60 /min Isabell Acosta LPN [facility]; [facility] Work Phone: 12-22-2020 11:19-0400 Respiratory rate 16 /min Isabell Acosta LPN [facility]; [facility] Work Phone: 12-22-2020 11:19-0400 SaO2% (BldA) [Mass fraction] 98 % Isabell Acosta HOT BOX OPERATOR [facility]; [facility] Work Phone: 12-22-2020 11:19-0400 Systolic blood pressure 128 mm[Hg] Isabell Acosta HOT BOX OPERATOR [facility]; [facility] Work Phone: 12-05-2020 11:41-0400 Body height 162.56 cm Bijal Masterson [facility]; [facility] Work Phone: 12-05-2020 11:41-0400 Body mass index (BMI) [Ratio] 33.19 kg/m2 Bijal Shanteius [facility]; [facility] Work Phone: 12-05-2020 11:41-0400 Body surface area Derived from formula 1.93 m2 Bijal Masterson [facility]; [facility] Work Phone: 12-05-2020 11:41-0400 Body weight 87.71 kg Bijal Masterson [facility]; [facility] Work Phone: 05-01-2020 08:35-0500 BMI (Body Mass Index) 33.19 kg/m2 Isabelljeffrey Acosta HOT BOX OPERATOR Comprehe nsive Internal Medicine; [facility] Work Phone: 05-01-2020 08:35-0500 Body Temperature 98 [degF] Isabelljeffrey Woodman [facility]; [facility] Work Phone: Comment on above: Method: Infrared 05-01-2020 08:35-0500 Body weight 87.71 kg Isabell Karla HOT BOX OPERATOR [facility]; [facility] Work Phone: 05-01-2020 08:35-0500 BSA (Body Surface Area) 1.93 m2 Isabell Acosta [facility] [facility]; [facility] Work Phone: 05-01-2020 08:35-0500 Height 162.56 cm Isabell Acosta [facility]; [facility] Work Phone: 05-01-2020 08:35-0500 Pulse (Heart Rate) 62 /min Isabell Acosta [facility] Comprehensi ve Internal Medicine; [facility] Work Phone: Comment on above: Pattern: Regular 03-31-2020 15:03-0500 BMI (Body Mass Index) 34.39 kg/m2 Renetta Julissa DO Work Phone: [facility]; [facility] Work Phone: Comment on above: no vitals bc virtual visit 03-31-2020 15:03-0500 Body weight 90.89 kg Renetta Julissa DO Work Phone: [facility]; [facility] Work Phone: Comment on above: no vitals bc virtual visit 03-31-2020 15:03-0500 BSA (Body Surface Area) 1.96 m2 Renetta Julissa DO Work Phone: [facility]; [facility] Work Phone: Comment on above: no vitals bc virtual visit 03-31-2020 15:03-0500 Height 162.56 cm Renetta Julissa DO Work Phone: [facility]; [facility] Work Phone: Comment on above: no vitals bc virtual visit 02-08-2020 08:16-0400 BMI (Body Mass Index) 34.39 kg/m2 [facility] Comprehen sive Internal Medicine Work Phone: 02-08-2020 08:16-0400 Body weight 90.89 kg [facility] Work Phone: 02-08-2020 08:16-0400 BSA (Body Surface Area) 1.96 m2 [facility] Work Phone: 02-08-2020 08:16-0400 Height 162.56 cm [facility] Work Phone: 11-26-2019 16:14-0400 BMI (Body Mass Index) 34.39 kg/m2 Bijal Gravius [facility] Work Phone: 11-26-2019 16:14-0400 Body Temperature 97.1 [degF] Bijal Masterson [facility] Internal Medicine Work Phone: Comment on above: Method: Infrared 11-26-2019 16:14-0400 Body weight 90.89 kg Bijal Masterson [facility] Internal Medicine Work Phone: 11-26-2019 16:14-0400 BP Diastolic 84 mm[Hg] Bijal Masterson [facility] Internal Medicine Work Phone: Comment on above: Patient Position: Sitting; Cuff Location : Left Arm; Cuff Size: Standard 11-26-2019 16:14-0400 BP Systolic 118 mm[Hg] Bijal Masterson [facility] Internal Medicine Work Phone: Comment on above: Patient Position: Sitting; Cuff Location : Left Arm; Cuff Size: Standard 11-26-2019 16:14-0400 BSA (Body Surface Area) 1.96 m2 Bijal Masterson [facility] Internal Medicine Work Phone: 11-26-2019 16:14-0400 Height 162.56 cm Bijal Masterson [facility] Internal Medicine Work Phone: 11-26-2019 16:14-0400 Pulse (Heart Rate) 70 /min Bijal Masterson [facility] Internal Medicine Work Phone: Comment on above: Pattern: Regular 11-26-2019 16:14-0400 Pulse Oximetry 98 % Renetta Julissa [facility] Internal Medicine Work Phone: Comment on above: Room air 11-26-2019 16:14-0400 Respiratory Rate 18 /min Bijal Masterson [facility] Internal Medicine Work Phone: Comment on above: Pattern: Unlabored 11-26-2019 16:14-0400 SaO2% (BldA) [Mass fraction] 98 % Bijal Masterson [facility] Internal Medicine; [facility] Work Phone: 07-04-2019 14:22-0400 BMI (Body Mass Index) 35.08 kg/m2 Georgie montes Internal Medicine Work Phone: Comment on above: facetime visit--pt took her own vitals 07-04-2019 14:22-0400 Body weight 92.7 kg Georgie Liz GOVIND [facility] Work Phone: Comment on above: facetime visit--pt took her own vitals 07-04-2019 14:22-0400 BP Diastolic 94 mm[Hg] Georgie Liz HOT BOX OPERATOR [facility] Work Phone: Comment on above: Patient Position: Sitting; Cuff Location : Left Arm; Cuff Size: Standard facetime visit--pt t ook her own vitals 07-04-2019 14:22-0400 BP Systolic 170 mm[Hg] Georgie Liz GOVIND [facility] Work Phone: Comment on above: Patient Position: Sitting; Cuff Location : Left Arm; Cuff Size: Standard facetime visit--pt t ook her own vitals 07-04-2019 14:22-0400 BSA (Body Surface Area) 1.97 m2 Georgiemelvi Liz GOVIND [facility] Work Phone: Comment on above: facetime visit--pt took her own vitals 07-04-2019 14:22-0400 Height 162.56 cm Georgie Liz GOVIND [facility] Work Phone: Comment on above: facetime visit--pt took her own vitals 07-04-2019 14:22-0400 Pulse (Heart Rate) 57 /min Georgie Liz LPN Comprehens e Internal Medicine Work Phone: Comment on above: Pattern: Regular facetime visit--pt t ook her own vitals 04-18-2019 13:59-0500 BMI (Body Mass Index) 35.08 kg/m2 Reyn Bird RN [facility] Work Phone: 04-18-2019 13:59-0500 Body weight 92.7 kg Reny Bird RN [facility] Work Phone: 04-18-2019 13:59-0500 BP Diastolic 64 mm[Hg] Reny Bird RN [facility] Work Phone: Comment on above: Patient Position: Sitting; Cuff Location : Left Arm; Cuff Size: Large 04-18-2019 13:59-0500 BP Systolic 118 mm[Hg] Reny Bird RN [facility] Work Phone: Comment on above: Patient Position: Sitting; Cuff Location : Left Arm; Cuff Size: Large 04-18-2019 13:59-0500 BSA (Body Surface Area) 1.97 m2 Reny Bird RN [facility] Work Phone: 04-18-2019 13:59-0500 Height 162.56 cm Reny Bird RN [facility] Work Phone: 04-18-2019 13:59-0500 Pulse (Heart Rate) 60 /min Reny Bird RN [facility] Work Phone: Comment on above: Pattern: Regular 04-18-2019 13:59-0500 Pulse Oximetry 98 % Renetta Angulo [facility] Work Phone: Comment on above: Room air 04-18-2019 13:59-0500 Respiratory Rate 18 /min Reny Bird RN [facility] Work Phone: Comment on above: Pattern: Unlabored 04-18-2019 13:59-0500 SaO2% (BldA) [Mass fraction] 98 % Reny Bird RN [facility]; [facility] Work Phone: 04-12-2019 13:22-0500 BMI (Body Mass Index) 35.08 kg/m2 Isabell Acosta LPN Comprehe nsive Internal Medicine Work Phone: 04-12-2019 13:22-0500 Body Temperature 96.8 [degF] Isabell Acosta LPN [facility] Work Phone: Comment on above: Method: Temporal 04-12-2019 13:22-0500 Body weight 92.7 kg Isabell Acosta LPN [facility] Work Phone: 04-12-2019 13:22-0500 BP Diastolic 70 mm[Hg] Isabell Acosta LPN [facility] Work Phone: Comment on above: Patient Position: Sitting; Cuff Location : Left Arm; Cuff Size: Standard 04-12-2019 13:22-0500 BP Systolic 110 mm[Hg] Isabell Acosta LPN [facility] Work Phone: Comment on above: Patient Position: Sitting; Cuff Location : Left Arm; Cuff Size: Standard 04-12-2019 13:22-0500 BSA (Body Surface Area) 1.97 m2 Isabell Acosta LPN [facility] Internal Medicine Work Phone: 04-12-2019 13:22-0500 Height 162.56 cm Isabell Acosta LPN [facility] Internal Medicine Work Phone: 04-12-2019 13:22-0500 Pulse (Heart Rate) 64 /min Isabell Acosta LPN Comprehensi Internal Medicine Work Phone: Comment on above: Pattern: Regular 04-12-2019 13:22-0500 Pulse Oximetry 99 % Renetta Angulo [facility] Internal Medicine Work Phone: Comment on above: Room air 04-12-2019 13:22-0500 Respiratory Rate 16 /min Isabell Acosta LPN [facility] Internal Medicine Work Phone: Comment on above: Pattern: Unlabored 04-12-2019 13:22-0500 SaO2% (BldA) [Mass fraction] 99 % Isabell Acosta LPN [facility] Internal Medicine; [facility] Work Phone: 10-13-2018 10:54-0400 BMI (Body Mass Index) 36.41 kg/m2 Reny Bird RN [facility] Work Phone: 10-13-2018 10:54-0400 Body weight 96.22 kg Reny Bird RN [facility] Work Phone: 10-13-2018 10:54-0400 BP Diastolic 78 mm[Hg] Reny Bird RN [facility] Work Phone: Comment on above: Patient Position: Sitting; Cuff Location : Left Arm; Cuff Size: Large 10-13-2018 10:54-0400 BP Systolic 118 mm[Hg] Reny Bird RN [facility] Work Phone: Comment on above: Patient Position: Sitting; Cuff Location : Left Arm; Cuff Size: Large 10-13-2018 10:54-0400 BSA (Body Surface Area) 2.01 m2 Reny Bird RN [facility] Work Phone: 10-13-2018 10:54-0400 Height 162.56 cm Reny Bird RN [facility] Work Phone: 10-13-2018 10:54-0400 Pulse (Heart Rate) 55 /min Reny Bird RN [facility] Work Phone: Comment on above: Pattern: Regular 10-13-2018 10:54-0400 Pulse Oximetry 97 % Renetta Angulo [facility] Work Phone: Comment on above: Room air 10-13-2018 10:54-0400 Respiratory Rate 18 /min Reny Bird RN [facility] Work Phone: Comment on above: Pattern: Unlabored 10-13-2018 10:54-0400 SaO2% (BldA) [Mass fraction] 97 % Reny Bird RN [facility]; [facility] Work Phone: 07-14-2018 09:11-0400 BMI (Body Mass Index) 38.66 kg/m2 Juan Farooq LPN [facility] Internal Medicine Work Phone: 07-14-2018 09:11-0400 Body Temperature 97.6 [degF] Juan Farooq LPN [facility] Internal Medicine Work Phone: Comment on above: Method: Temporal 07-14-2018 09:11-0400 Body weight 102.17 kg Juan Farooq LPN [facility] Internal Medicine Work Phone: 07-14-2018 09:11-0400 BP Diastolic 74 mm[Hg] Juan Farooq LPN [facility] Work Phone: Comment on above: Patient Position: Sitting; Cuff Location : Left Arm; Cuff Size: Standard 07-14-2018 09:11-0400 BP Systolic 118 mm[Hg] Juan Farooq LPN [facility] Internal Medicine Work Phone: Comment on above: Patient Position: Sitting; Cuff Location : Left Arm; Cuff Size: Standard 07-14-2018 09:11-0400 BSA (Body Surface Area) 2.06 m2 Juan Farooq LPN [facility] Work Phone: 07-14-2018 09:11-0400 Height 162.56 cm Juan Farooq LPN [facility] Work Phone: 07-14-2018 09:11-0400 Pulse (Heart Rate) 67 /min Juan Farooq GOVIND Comprehensiv e Internal Medicine Work Phone: Comment on above: Pattern: Regular 07-14-2018 09:11-0400 Pulse Oximetry 99 % Renetta Angulo [facility] Internal Medicine Work Phone: Comment on above: Room air 07-14-2018 09:11-0400 Respiratory Rate 16 /min Juan Farooq GOVIND [facility] Work Phone: Comment on above: Pattern: Unlabored 07-14-2018 09:11-0400 SaO2% (BldA) [Mass fraction] 99 % Juan Farooq GOVIND [facility] Internal Medicine; [facility] Work Phone: 07-14-2018 09:11-0400 Weight 102.17 kg Renetta Angulo [facility] Internal Medicine Work Phone: 06-22-2018 13:39-0400 BMI (Body Mass Index) 38.66 kg/m2 Haley Annlear Comprehens delia Internal Medicine Work Phone: 06-22-2018 13:39-0400 Body Temperature 98 [degF] Haley Annlear [facility] Internal Medicine Work Phone: Comment on above: Method: Temporal 06-22-2018 13:39-0400 Body weight 102.17 kg Haley Annlear [facility] Internal Medicine Work Phone: 06-22-2018 13:39-0400 BP Diastolic 68 mm[Hg] Haley Edwin [facility] Internal Medicine Work Phone: Comment on above: Patient Position: Sitting; Cuff Location : Left Arm; Cuff Size: Standard 06-22-2018 13:39-0400 BP Systolic 110 mm[Hg] Haley Annlear [facility] Internal Medicine Work Phone: Comment on above: Patient Position: Sitting; Cuff Location : Left Arm; Cuff Size: Standard 06-22-2018 13:39-0400 BSA (Body Surface Area) 2.06 m2 Haley Edwin [facility] Internal Medicine Work Phone: 06-22-2018 13:39-0400 Height 162.56 cm Haley Pineda [facility] Internal Medicine Work Phone: 06-22-2018 13:39-0400 Pulse (Heart Rate) 70 /min Haley Pineda [facility] Internal Medicine Work Phone: Comment on above: Pattern: Regular 06-22-2018 13:39-0400 Pulse Oximetry 98 % Renetta Angulo [facility] Internal Medicine Work Phone: Comment on above: Room air 06-22-2018 13:39-0400 Respiratory Rate 17 /min Haley Pineda [facility] Internal Medicine Work Phone: Comment on above: Pattern: Unlabored 06-22-2018 13:39-0400 SaO2% (BldA) [Mass fraction] 98 % Haley Pineda [facility] Internal Medicine; [facility] Work Phone: 06-22-2018 13:39-0400 Weight 102.17 kg Renetta Angulo [facility] Internal Medicine Work Phone: 06-16-2018 13:47-0500 BMI (Body Mass Index) 38.66 kg/m2 Haley Pineda [facility] Internal Medicine Work Phone: 06-16-2018 13:47-0500 Body Temperature 97.8 [degF] Haley Pineda [facility] Internal Medicine Work Phone: Comment on above: Method: Temporal 06-16-2018 13:47-0500 Body weight 102.17 kg Haley Pineda [facility] Internal Medicine Work Phone: 06-16-2018 13:47-0500 BP Diastolic 78 mm[Hg] Haley Pineda [facility] Internal Medicine Work Phone: Comment on above: Patient Position: Sitting; Cuff Location : Left Arm; Cuff Size: Standard 06-16-2018 13:47-0500 BP Systolic 118 mm[Hg] Haley Pineda [facility] Internal Medicine Work Phone: Comment on above: Patient Position: Sitting; Cuff Location : Left Arm; Cuff Size: Standard 06-16-2018 13:47-0500 BSA (Body Surface Area) 2.06 m2 Haley Pineda [facility] Internal Medicine Work Phone: 06-16-2018 13:47-0500 Height 162.56 cm Haley Annlear [facility] Work Phone: 06-16-2018 13:47-0500 Pulse (Heart Rate) 71 /min Haley Pineda [facility] Work Phone: Comment on above: Pattern: Regular 06-16-2018 13:47-0500 Pulse Oximetry 98 % Renetta Angulo [facility] Work Phone: Comment on above: Room air 06-16-2018 13:47-0500 Respiratory Rate 16 /min Haley Pineda [facility] Work Phone: Comment on above: Pattern: Unlabored 06-16-2018 13:47-0500 SaO2% (BldA) [Mass fraction] 98 % Haley Annlear [facility]; [facility] Work Phone: 06-16-2018 13:47-0500 Weight 102.17 kg Renetta Wardon [facility] Work Phone: 01-23-2018 15:45-0400 BMI (Body Mass Index) 38.66 kg/m2 Reny Bird RN [facility] Work Phone: 01-23-2018 15:45-0400 Body weight 102.17 kg Reny Bird RN [facility] Work Phone: 01-23-2018 15:45-0400 BP Diastolic 78 mm[Hg] Reny Bird RN [facility] Work Phone: Comment on above: Patient Position: Sitting; Cuff Location : Left Arm; Cuff Size: Large 01-23-2018 15:45-0400 BP Systolic 128 mm[Hg] Reny Bird RN [facility] Work Phone: Comment on above: Patient Position: Sitting; Cuff Location : Left Arm; Cuff Size: Large 01-23-2018 15:45-0400 BSA (Body Surface Area) 2.06 m2 Reny Brid RN [facility] Work Phone: 01-23-2018 15:45-0400 Height 162.56 cm Reny Bird RN [facility] Work Phone: 01-23-2018 15:45-0400 Pulse (Heart Rate) 64 /min Reny Bird RN [facility] Work Phone: Comment on above: Pattern: Regular 01-23-2018 15:45-0400 Pulse Oximetry 98 % Renetta Angulo [facility] Work Phone: Comment on above: Room air 01-23-2018 15:45-0400 Respiratory Rate 18 /min Reny Bird RN [facility] Work Phone: Comment on above: Pattern: Unlabored 01-23-2018 15:45-0400 SaO2% (BldA) [Mass fraction] 98 % Reny Bird RN [facility]; [facility] Work Phone: 01-23-2018 15:45-0400 Weight 102.17 kg Renetta Angulo [facility] Work Phone: 11-21-2017 14:53-0400 BMI (Body Mass Index) 38.66 kg/m2 Reny Bird RN [facility] Work Phone: 11-21-2017 14:53-0400 Body Temperature 96.6 [degF] Reny Bird RN [facility] Work Phone: Comment on above: Method: Axillary 11-21-2017 14:53-0400 Body weight 102.17 kg Reny Bird RN [facility] Work Phone: 11-21-2017 14:53-0400 BP Diastolic 86 mm[Hg] Reny Bird RN [facility] Work Phone: Comment on above: Patient Position: Standing; Cuff Locatio n: Left Arm; Cuff Size: Large 11-21-2017 14:53-0400 BP Systolic 112 mm[Hg] Reny Bird RN [facility] Work Phone: Comment on above: Patient Position: Standing; Cuff Locatio n: Left Arm; Cuff Size: Large 11-21-2017 14:53-0400 BSA (Body Surface Area) 2.06 m2 Reny Bird RN [facility] Work Phone: 11-21-2017 14:53-0400 Height 162.56 cm Reny Bird RN [facility] Work Phone: 11-21-2017 14:53-0400 Pulse (Heart Rate) 49 /min Reny Bird RN [facility] Work Phone: Comment on above: Pattern: Regular 11-21-2017 14:53-0400 Pulse Oximetry 97 % Renetta Angulo [facility] Work Phone: Comment on above: Room air 11-21-2017 14:53-0400 Respiratory Rate 20 /min Reny Bird RN [facility] Work Phone: Comment on above: Pattern: Unlabored 11-21-2017 14:53-0400 SaO2% (BldA) [Mass fraction] 97 % Reny Bird RN [facility]; [facility] Work Phone: 11-21-2017 14:53-0400 Weight 102.17 kg Renetta Angulo [facility] Work Phone: 11-18-2017 10:03-0400 BMI (Body Mass Index) 38.84 kg/m2 Reny Bird RN [facility] Work Phone: 11-18-2017 10:03-0400 Body weight 102.63 kg Reny Bird RN [facility] Work Phone: 11-18-2017 10:03-0400 BP Diastolic 82 mm[Hg] Reny Bird RN [facility] Work Phone: Comment on above: Patient Position: Sitting; Cuff Location : Left Arm; Cuff Size: Large 11-18-2017 10:03-0400 BP Systolic 118 mm[Hg] Reny Bird RN [facility] Work Phone: Comment on above: Patient Position: Sitting; Cuff Location : Left Arm; Cuff Size: Large 11-18-2017 10:03-0400 BSA (Body Surface Area) 2.06 m2 Reny Bird RN [facility] Work Phone: 11-18-2017 10:03-0400 Height 162.56 cm Reny Bird RN [facility] Work Phone: 11-18-2017 10:03-0400 Pulse (Heart Rate) 56 /min Reny Bird RN [facility] Work Phone: Comment on above: Pattern: Regular 11-18-2017 10:03-0400 Pulse Oximetry 98 % Renetta Julissa [facility] Work Phone: Comment on above: Room air 11-18-2017 10:03-0400 Respiratory Rate 18 /min Reny Bird RN [facility] Work Phone: Comment on above: Pattern: Unlabored 11-18-2017 10:03-0400 SaO2% (BldA) [Mass fraction] 98 % Reny Bird RN [facility]; [facility] Work Phone: 11-18-2017 10:03-0400 Weight 102.63 kg Renetta Angulo [facility] Work Phone: 10-27-2017 12:05-0400 BMI (Body Mass Index) 41.11 kg/m2 Reny Bird RN [facility] Work Phone: 10-27-2017 12:05-0400 Body weight 108.64 kg Reny Bird RN [facility] Work Phone: 10-27-2017 12:05-0400 BP Diastolic 110 mm[Hg] Reny Bird RN [facility] Work Phone: Comment on above: Patient Position: Sitting; Cuff Location : Left Arm; Cuff Size: Large 10-27-2017 12:05-0400 BP Systolic 142 mm[Hg] Reny Bird RN [facility] Work Phone: Comment on above: Patient Position: Sitting; Cuff Location : Left Arm; Cuff Size: Large 10-27-2017 12:05-0400 BSA (Body Surface Area) 2.11 m2 Reny Bird RN [facility] Work Phone: 10-27-2017 12:05-0400 Height 162.56 cm Reny Bird RN [facility] Work Phone: 10-27-2017 12:05-0400 Pulse (Heart Rate) 55 /min Reny Bird RN [facility] Work Phone: Comment on above: Pattern: Regular 10-27-2017 12:05-0400 Pulse Oximetry 97 % Renetta Julissa [facility] Work Phone: Comment on above: Room air 10-27-2017 12:05-0400 Respiratory Rate 18 /min Reny Bird RN [facility] Work Phone: Comment on above: Pattern: Unlabored 10-27-2017 12:05-0400 SaO2% (BldA) [Mass fraction] 97 % Reny Bird RN [facility]; [facility] Work Phone: 10-27-2017 12:05-0400 Weight 108.64 kg Renetta Angulo [facility] Work Phone: 07-20-2017 08:36-0400 BMI (Body Mass Index) 39.91 kg/m2 Reny Bird RN [facility] Work Phone: 07-20-2017 08:36-0400 Body weight 105.46 kg Reny Bird RN [facility] Work Phone: 07-20-2017 08:36-0400 BP Diastolic 82 mm[Hg] Reny Bird RN [facility] Work Phone: Comment on above: Patient Position: Sitting; Cuff Location : Left Arm; Cuff Size: Large 07-20-2017 08:36-0400 BP Systolic 128 mm[Hg] Reny Bird RN [facility] Work Phone: Comment on above: Patient Position: Sitting; Cuff Location : Left Arm; Cuff Size: Large 07-20-2017 08:36-0400 BSA (Body Surface Area) 2.09 m2 Reny Bird RN [facility] Work Phone: 07-20-2017 08:36-0400 Height 162.56 cm Reny Bird RN [facility] Work Phone: 07-20-2017 08:36-0400 Pulse (Heart Rate) 74 /min Reny Bird RN [facility] Work Phone: Comment on above: Pattern: Regular 07-20-2017 08:36-0400 Pulse Oximetry 97 % Renetta Angulo [facility] Work Phone: Comment on above: Room air 07-20-2017 08:36-0400 Respiratory Rate 18 /min Reny Bird RN [facility] Work Phone: Comment on above: Pattern: Unlabored 07-20-2017 08:36-0400 SaO2% (BldA) [Mass fraction] 97 % Reny Bird RN [facility]; [facility] Work Phone: 07-20-2017 08:36-0400 Weight 105.46 kg Renetta Angulo [facility] Work Phone: 06-17-2017 14:05-0500 BMI (Body Mass Index) 39.91 kg/m2 Reny Bird RN [facility] Work Phone: 06-17-2017 14:05-0500 Body weight 105.46 kg Reny Bird RN [facility] Work Phone: 06-17-2017 14:05-0500 BP Diastolic 84 mm[Hg] Reny Bird RN [facility] Work Phone: Comment on above: Patient Position: Sitting; Cuff Location : Left Arm; Cuff Size: Standard 06-17-2017 14:05-0500 BP Systolic 132 mm[Hg] Reny Bird RN [facility] Work Phone: Comment on above: Patient Position: Sitting; Cuff Location : Left Arm; Cuff Size: Standard 06-17-2017 14:05-0500 BSA (Body Surface Area) 2.09 m2 Reny Bird RN [facility] Work Phone: 06-17-2017 14:05-0500 Height 162.56 cm Reny Bird RN [facility] Work Phone: 06-17-2017 14:05-0500 Pulse (Heart Rate) 71 /min Reny Bird RN [facility] Work Phone: Comment on above: Pattern: Regular 06-17-2017 14:05-0500 Pulse Oximetry 99 % Renetta Angulo [facility] Work Phone: Comment on above: Room air 06-17-2017 14:05-0500 Respiratory Rate 18 /min Reny Bird RN [facility] Work Phone: Comment on above: Pattern: Unlabored 06-17-2017 14:05-0500 SaO2% (BldA) [Mass fraction] 99 % Reny Bird RN [facility]; [facility] Work Phone: 06-17-2017 14:05-0500 Weight 105.46 kg Renetta Angulo [facility] Work Phone: 10-19-2016 13:0400 BMI (Body Mass Index) 37.59 kg/m2 Georgie Martinrb HOT BOX OPERATOR Comprehen sive Internal Medicine Work Phone: 10-19-2016 13:-0400 Body Temperature 97.5 [degF] Georgie Mariorb HOT BOX OPERATOR [facility] Work Phone: 10-19-2016 13:-0400 Body weight 99.34 kg Georgie Martinrb HOT BOX OPERATOR [facility] Work Phone: 10-19-2016 13:-0400 BP Diastolic 86 mm[Hg] Georgie Mariorb HOT BOX OPERATOR [facility] Work Phone: Comment on above: Patient Position: Sitting; Cuff Location : Left Arm; Cuff Size: Standard 10-19-2016 13:0400 BP Systolic 132 mm[Hg] Georgie Mariorb HOT BOX OPERATOR [facility] Work Phone: Comment on above: Patient Position: Sitting; Cuff Location : Left Arm; Cuff Size: Standard 10-19-2016 13:0400 BSA (Body Surface Area) 2.03 m2 Georgie Liz LPN [facility] Work Phone: 10-19-2016 13:040 Height 162.56 cm Georgie Mariorb HOT BOX [facility]ATOR [facility] Work Phone: 10-19-2016 13:0400 Pulse (Heart Rate) 67 /min Georgie Martinrb HOT BOX OPERATOR [facility] Work Phone: Comment on above: Pattern: Regular 10-19-2016 13:-0400 Pulse Oximetry 98 % Renetta Angulo [facility] Work Phone: Comment on above: Room air 10-19-2016 13:0400 Respiratory Rate 18 /min Georgie Liz HOT BOX OPERATOR [facility] Work Phone: Comment on above: Pattern: Unlabored 10-19-2016 13:21-0400 SaO2% (BldA) [Mass fraction] 98 % Georgie Liz LPN [facility]; [facility] Work Phone: 10-19-2016 13:210400 Weight 99.34 kg Renetta Angulo [facility] Work Phone: 10-01-2016 10:24-0400 BMI (Body Mass Index) 37.46 kg/m2 Reny Bird RN [facility] Work Phone: 10-01-2016 10:24-0400 Body weight 99 kg Reny Bird RN [facility] Work Phone: 10-01-2016 10:24-0400 BP Diastolic 72 mm[Hg] Reny Bird RN [facility] Work Phone: Comment on above: Patient Position: Sitting; Cuff Location : Left Arm; Cuff Size: Large 10-01-2016 10:24-0400 BP Systolic 110 mm[Hg] Reny Bird RN [facility] Work Phone: Comment on above: Patient Position: Sitting; Cuff Location : Left Arm; Cuff Size: Large 10-01-2016 10:240400 BSA (Body Surface Area) 2.03 m2 Reny Bird RN [facility] Work Phone: 10-01-2016 10:240400 Height 162.56 cm Reny Bird RN [facility] Work Phone: 10-01-2016 10:24-0400 Pulse (Heart Rate) 63 /min Reny Bird RN [facility] Work Phone: Comment on above: Pattern: Regular 10-01-2016 10:24-0400 Pulse Oximetry 95 % Renetta Angulo [facility] Work Phone: Comment on above: Room air 10-01-2016 10:24-0400 Respiratory Rate 18 /min Reny Bird RN [facility] Work Phone: Comment on above: Pattern: Unlabored 10-01-2016 10:24-0400 SaO2% (BldA) [Mass fraction] 95 % Reny Bird RN [facility]; [facility] Work Phone: 10-01-2016 10:24-0400 Weight 99 kg Renetta Angulo [facility] Work Phone: 04-19-2016 14:25-0500 BMI (Body Mass Index) 39.67 kg/m2 Reny Bird RN [facility] Work Phone: 04-19-2016 14:25-0500 Body weight 104.84 kg Reny Bird RN [facility] Work Phone: 04-19-2016 14:25-0500 BP Diastolic 84 mm[Hg] Reny Bird RN [facility] Work Phone: Comment on above: Patient Position: Sitting; Cuff Location : Left Arm; Cuff Size: Large 04-19-2016 14:25-0500 BP Systolic 122 mm[Hg] Reny Bird RN [facility] Work Phone: Comment on above: Patient Position: Sitting; Cuff Location : Left Arm; Cuff Size: Large 04-19-2016 14:25-0500 BSA (Body Surface Area) 2.08 m2 Reny Bird RN [facility] Work Phone: 04-19-2016 14:25-0500 Height 162.56 cm Reny Bird RN [facility] Work Phone: 04-19-2016 14:25-0500 Pulse (Heart Rate) 68 /min Reny Bird RN [facility] Work Phone: Comment on above: Pattern: Regular 04-19-2016 14:25-0500 Pulse Oximetry 96 % Renetta Angulo [facility] Work Phone: Comment on above: Room air 04-19-2016 14:25-0500 Respiratory Rate 18 /min Reny Bird RN [facility] Work Phone: Comment on above: Pattern: Unlabored 04-19-2016 14:25-0500 SaO2% (BldA) [Mass fraction] 96 % Reny Bird RN [facility]; [facility] Work Phone: 04-19-2016 14:25-0500 Weight 104.84 kg Renetta Angulo [facility] Work Phone: 02-20-2016 13:44-0500 BMI (Body Mass Index) 38.88 kg/m2 Lilia Eden [facility] Work Phone: 02-20-2016 13:44-0500 Body Temperature 96.9 [degF] Lilia Eden [facility] Work Phone: Comment on above: Method: Temporal 02-20-2016 13:44-0500 Body weight 102.74 kg Lilia Eden [facility] Work Phone: 02-20-2016 13:44-0500 BP Diastolic 92 mm[Hg] Lilia Eden [facility] Work Phone: Comment on above: Patient Position: Sitting; Cuff Location : Left Arm; Cuff Size: Large 02-20-2016 13:44-0500 BP Systolic 120 mm[Hg] Lilia Eden [facility] Work Phone: Comment on above: Patient Position: Sitting; Cuff Location : Left Arm; Cuff Size: Large 02-20-2016 13:44-0500 BSA (Body Surface Area) 2.06 m2 Lilia Eden [facility] Work Phone: 02-20-2016 13:44-0500 Height 162.56 cm Lilia Eden [facility] Work Phone: 02-20-2016 13:44-0500 Pulse (Heart Rate) 62 /min [facility] Work Phone: Comment on above: Pattern: Regular 02-20-2016 13:44-0500 Pulse Oximetry 97 % Renetta Angulo [facility] Work Phone: Comment on above: Room air 02-20-2016 13:44-0500 Respiratory Rate 16 /min Lilia Eden [facility] Work Phone: Comment on above: Pattern: Unlabored 02-20-2016 13:44-0500 SaO2% (BldA) [Mass fraction] 97 % Liliacatrachito Francogenaro [facility]; [facility] Work Phone: 02-20-2016 13:44-0500 Weight 102.74 kg Renetta Angulo [facility] Work Phone: 02-16-2016 14:35-0500 BMI (Body Mass Index) 38.88 kg/m2 Reny Bird RN [facility] Work Phone: 02-16-2016 14:35-0500 Body weight 102.74 kg Reny Bird RN [facility] Work Phone: 02-16-2016 14:35-0500 BP Diastolic 82 mm[Hg] Reny Bird RN [facility] Work Phone: 02-16-2016 14:35-0500 BP Systolic 118 mm[Hg] Reny Bird RN [facility] Work Phone: 02-16-2016 14:35-0500 BSA (Body Surface Area) 2.06 m2 Reny Bird RN [facility] Work Phone: 02-16-2016 14:35-0500 Height 162.56 cm Reny Bird RN [facility] Work Phone: 02-16-2016 14:35-0500 Pulse (Heart Rate) 57 /min Reny Bird RN [facility] Work Phone: Comment on above: Pattern: Regular 02-16-2016 14:35-0500 Pulse Oximetry 97 % Renetta Angulo [facility] Work Phone: Comment on above: Room air 02-16-2016 14:35-0500 SaO2% (BldA) [Mass fraction] 97 % Reny Bird RN [facility]; [facility] Work Phone: 02-16-2016 14:35-0500 Weight 102.74 kg Renetta Angulo [facility] Work Phone: 12-22-2015 13:43-0400 BMI (Body Mass Index) 37.14 kg/m2 Reny Bird RN [facility] Work Phone: 12-22-2015 13:43-0400 Body weight 98.15 kg Reny Bird RN [facility] Work Phone: 12-22-2015 13:43-0400 BP Diastolic 88 mm[Hg] Reny Bird RN [facility] Work Phone: Comment on above: Patient Position: Sitting; Cuff Location : Left Arm; Cuff Size: Large 12-22-2015 13:43-0400 BP Systolic 138 mm[Hg] Reny Bird RN [facility] Work Phone: Comment on above: Patient Position: Sitting; Cuff Location : Left Arm; Cuff Size: Large 12-22-2015 13:43-0400 BSA (Body Surface Area) 2.02 m2 Reny Bird RN [facility] Work Phone: 12-22-2015 13:43-0400 Height 162.56 cm Reny Bird RN [facility] Work Phone: 12-22-2015 13:43-0400 Pulse (Heart Rate) 60 /min Reny Bird RN [facility] Work Phone: Comment on above: Pattern: Regular 12-22-2015 13:43-0400 Pulse Oximetry 97 % Renetta Angulo [facility] Work Phone: Comment on above: Room air 12-22-2015 13:43-0400 Respiratory Rate 18 /min Reny Bird RN [facility] Work Phone: Comment on above: Pattern: Unlabored 12-22-2015 13:43-0400 SaO2% (BldA) [Mass fraction] 97 % Reny Bird RN [facility]; [facility] Work Phone: 12-22-2015 13:43-0400 Weight 98.15 kg Renetta Angulo [facility] Work Phone: 08-04-2015 15:57-0400 BMI (Body Mass Index) 36.99 kg/m2 Reny Bird RN [facility] Work Phone: 08-04-2015 15:57-0400 Body weight 97.75 kg Reny Bird RN [facility] Work Phone: 08-04-2015 15:57-0400 BP Diastolic 78 mm[Hg] Reny Bird RN [facility] Work Phone: Comment on above: Patient Position: Sitting; Cuff Location : Left Arm; Cuff Size: Large 08-04-2015 15:57-0400 BP Systolic 136 mm[Hg] Reny Bird RN [facility] Work Phone: Comment on above: Patient Position: Sitting; Cuff Location : Left Arm; Cuff Size: Large 08-04-2015 15:57-0400 BSA (Body Surface Area) 2.02 m2 Reny Bird RN [facility] Work Phone: 08-04-2015 15:57-0400 Height 162.56 cm Reny Bird RN [facility] Work Phone: 08-04-2015 15:57-0400 Pulse (Heart Rate) 61 /min Reny Bird RN [facility] Work Phone: Comment on above: Pattern: Regular 08-04-2015 15:57-0400 Pulse Oximetry 98 % Renetta Julissa [facility] Work Phone: Comment on above: Room air 08-04-2015 15:57-0400 Respiratory Rate 18 /min Reny Bird RN [facility] Work Phone: Comment on above: Pattern: Unlabored 08-04-2015 15:57-0400 SaO2% (BldA) [Mass fraction] 98 % Reny Bird RN [facility]; [facility] Work Phone: 08-04-2015 15:57-0400 Weight 97.75 kg Renetta Wardon [facility] Work Phone: 06-04-2015 14:59-0500 BMI (Body Mass Index) 36.26 kg/m2 Reny Bird RN [facility] Work Phone: 06-04-2015 14:59-0500 Body weight 95.82 kg Reny Bird RN [facility] Work Phone: 06-04-2015 14:59-0500 BP Diastolic 84 mm[Hg] Reny Bird RN [facility] Work Phone: Comment on above: Patient Position: Sitting; Cuff Location : Left Arm; Cuff Size: Large 06-04-2015 14:59-0500 BP Systolic 128 mm[Hg] Reny Bird RN [facility] Work Phone: Comment on above: Patient Position: Sitting; Cuff Location : Left Arm; Cuff Size: Large 06-04-2015 14:59-0500 BSA (Body Surface Area) 2 m2 Reny Bird RN [facility] Work Phone: 06-04-2015 14:59-0500 Height 162.56 cm Reny Bird RN [facility] Work Phone: 06-04-2015 14:59-0500 Pulse (Heart Rate) 61 /min Reny Bird RN [facility] Work Phone: Comment on above: Pattern: Regular 06-04-2015 14:59-0500 Pulse Oximetry 98 % Renetta Angulo [facility] Work Phone: Comment on above: Room air 06-04-2015 14:59-0500 Respiratory Rate 18 /min Reny Bird RN [facility] Work Phone: Comment on above: Pattern: Unlabored 06-04-2015 14:59-0500 SaO2% (BldA) [Mass fraction] 98 % Reny Bird RN [facility]; [facility] Work Phone: 06-04-2015 14:59-0500 Weight 95.82 kg Renetta Angulo [facility] Work Phone: 03-03-2015 15:42-0500 BMI (Body Mass Index) 36.73 kg/m2 Reny Bird RN [facility] Work Phone: 03-03-2015 15:42-0500 Body weight 97.07 kg Reny Bird RN [facility] Work Phone: 03-03-2015 15:42-0500 BP Diastolic 76 mm[Hg] Reny Bird RN [facility] Work Phone: Comment on above: Patient Position: Sitting; Cuff Location : Left Arm; Cuff Size: Large 03-03-2015 15:42-0500 BP Systolic 122 mm[Hg] Reny Bird RN [facility] Work Phone: Comment on above: Patient Position: Sitting; Cuff Location : Left Arm; Cuff Size: Large 03-03-2015 15:42-0500 BSA (Body Surface Area) 2.01 m2 Reny Bird RN [facility] Work Phone: 03-03-2015 15:42-0500 Height 162.56 cm Reny Bird RN [facility] Work Phone: 03-03-2015 15:42-0500 Pulse (Heart Rate) 63 /min Reny Bird RN [facility] Work Phone: Comment on above: Pattern: Regular 03-03-2015 15:42-0500 Pulse Oximetry 97 % Renetta Angulo [facility] Work Phone: Comment on above: Room air 03-03-2015 15:42-0500 Respiratory Rate 18 /min Reny Bird RN [facility] Work Phone: Comment on above: Pattern: Unlabored 03-03-2015 15:42-0500 SaO2% (BldA) [Mass fraction] 97 % Reyn Bird RN [facility]; [facility] Work Phone: 03-03-2015 15:42-0500 Weight 97.07 kg Renetta Angulo [facility] Work Phone: 01-27-2015 15:11-0400 BMI (Body Mass Index) 38.36 kg/m2 Reny Bird RN [facility] Work Phone: 01-27-2015 15:11-0400 Body weight 101.38 kg Reny Bird RN [facility] Work Phone: 01-27-2015 15:11-0400 BP Diastolic 84 mm[Hg] Reny Bird RN [facility] Work Phone: Comment on above: Patient Position: Sitting; Cuff Location : Left Arm; Cuff Size: Large 01-27-2015 15:11-0400 BP Systolic 120 mm[Hg] Reny Bird RN [facility] Work Phone: Comment on above: Patient Position: Sitting; Cuff Location : Left Arm; Cuff Size: Large 01-27-2015 15:11-0400 BSA (Body Surface Area) 2.05 m2 Reny Bird RN [facility] Work Phone: 01-27-2015 15:11-0400 Height 162.56 cm Reny Bird RN [facility] Work Phone: 01-27-2015 15:11-0400 Pulse (Heart Rate) 57 /min Reny Bird RN [facility] Work Phone: Comment on above: Pattern: Regular 01-27-2015 15:11-0400 Pulse Oximetry 97 % Renetta Julissa [facility] Work Phone: Comment on above: Room air 01-27-2015 15:11-0400 Respiratory Rate 18 /min Reny Bird RN [facility] Work Phone: Comment on above: Pattern: Unlabored 01-27-2015 15:11-0400 SaO2% (BldA) [Mass fraction] 97 % Reny Bird RN [facility]; [facility] Work Phone: 01-27-2015 15:11-0400 Weight 101.38 kg Renetta Angulo [facility] Work Phone: 12-06-2014 12:10-0400 BMI (Body Mass Index) 39.65 kg/m2 RAMIRO Pagan LPN [facility] Work Phone: 12-06-2014 12:10-0400 Body Temperature 97.6 [degF] RAMIRO Pagan LPN [facility] Work Phone: Comment on above: Method: Temporal 12-06-2014 12:10-0400 Body weight 104.78 kg RAMIRO Pagan LPN [facility] Work Phone: 12-06-2014 12:10-0400 BP Diastolic 78 mm[Hg] RAMIRO Pagan LPN [facility] Work Phone: Comment on above: Patient Position: Sitting; Cuff Location : Left Arm; Cuff Size: Large 12-06-2014 12:10-0400 BP Systolic 124 mm[Hg] RAMIRO Pagan LPN [facility] Work Phone: Comment on above: Patient Position: Sitting; Cuff Location : Left Arm; Cuff Size: Large 12-06-2014 12:10-0400 BSA (Body Surface Area) 2.08 m2 RAMIRO Pagan LPN [facility] Work Phone: 12-06-2014 12:10-0400 Height 162.56 cm RAMIRO Pagan LPN [facility] Work Phone: 12-06-2014 12:10-0400 Pulse (Heart Rate) 76 /min RAMIRO Pagan GOVIND [facility] Work Phone: Comment on above: Pattern: Regular 12-06-2014 12:10-0400 Pulse Oximetry 98 % Renetta Angulo [facility] Work Phone: Comment on above: Room air 12-06-2014 12:10-0400 Respiratory Rate 18 /min RAMIRO Pagan GOVIND [facility] Work Phone: Comment on above: Pattern: Unlabored 12-06-2014 12:10-0400 SaO2% (BldA) [Mass fraction] 98 % RAMIRO Pagan GOVIND [facility]; [facility] Work Phone: 12-06-2014 12:10-0400 Weight 104.78 kg Renetta Angulo [facility] Work Phone: 11-01-2014 12:04-0400 BMI (Body Mass Index) 39.65 kg/m2 Beatriz Maria MD Work Phone: [facility] Work Phone: 11-01-2014 12:04-0400 Body Temperature 98 [degF] Beatriz Maria MD Work Phone: [facility] Work Phone: Comment on above: Method: Oral 11-01-2014 12:04-0400 Body weight 104.78 kg Beatriz Maria MD Work Phone: [facility] Work Phone: 11-01-2014 12:04-0400 BP Diastolic 84 mm[Hg] Beatriz Maria MD Work Phone: [facility] Work Phone: Comment on above: Patient Position: Sitting 11-01-2014 12:04-0400 BP Systolic 128 mm[Hg] Beatriz Maria MD Work Phone: [facility] Work Phone: Comment on above: Patient Position: Sitting 11-01-2014 12:04-0400 BSA (Body Surface Area) 2.08 m2 Beatriz Maria MD Work Phone: [facility] Work Phone: 11-01-2014 12:04-0400 Height 162.56 cm Beatriz Maria MD Work Phone: [facility] Work Phone: 11-01-2014 12:04-0400 Pulse (Heart Rate) 72 /min Beatriz Maria MD Work Phone: [facility] Work Phone: Comment on above: Pattern: Regular 11-01-2014 12:04-0400 Respiratory Rate 16 /min Beatriz Maria MD Work Phone: [facility] Work Phone: 11-01-2014 12:04-0400 Weight 104.78 kg Renetta Angulo [facility] Work Phone: 04-22-2014 15:34-0500 BMI (Body Mass Index) 39.82 kg/m2 RAMIRO Pagan LPN [facility] Work Phone: 04-22-2014 15:34-0500 Body Temperature 98 [degF] RAMIRO Pagan LPN [facility] Work Phone: Comment on above: Method: Temporal 04-22-2014 15:34-0500 Body weight 105.24 kg RAMIRO Pagan LPN [facility] Work Phone: 04-22-2014 15:34-0500 BP Diastolic 80 mm[Hg] RAMIRO Pagan LPN [facility] Work Phone: Comment on above: Patient Position: Sitting; Cuff Location : Left Arm; Cuff Size: Large 04-22-2014 15:34-0500 BP Systolic 128 mm[Hg] RAMIRO Pagan LPN [facility] Work Phone: Comment on above: Patient Position: Sitting; Cuff Location : Left Arm; Cuff Size: Large 04-22-2014 15:34-0500 BSA (Body Surface Area) 2.08 m2 RAMIRO Pagan LPN [facility] Work Phone: 04-22-2014 15:34-0500 Height 162.56 cm RAMIRO Pagan LPN [facility] Work Phone: 04-22-2014 15:34-0500 Pulse (Heart Rate) 74 /min RAMIRO Pagan LPN [facility] Work Phone: Comment on above: Pattern: Regular 04-22-2014 15:34-0500 Respiratory Rate 20 /min RAMIRO Pagan LPN [facility] Work Phone: Comment on above: Pattern: Unlabored 04-22-2014 15:34-0500 Weight 105.24 kg Renetta Angulo [facility] Work Phone: 10-18-2013 08:29-0400 BMI (Body Mass Index) 38.79 kg/m2 Beatriz Maria MD Work Phone: [facility] Work Phone: 10-18-2013 08:29-0400 Body Temperature 98.2 [degF] Beatriz Maria MD Work Phone: [facility] Work Phone: Comment on above: Method: Temporal 10-18-2013 08:29-0400 Body weight 102.51 kg Beatriz Maria MD Work Phone: [facility] Work Phone: 10-18-2013 08:29-0400 BP Diastolic 74 mm[Hg] Beatriz Maria MD Work Phone: [facility] Work Phone: Comment on above: Patient Position: Sitting; Cuff Location : Left Arm; Cuff Size: Standard 10-18-2013 08:29-0400 BP Systolic 128 mm[Hg] Beatriz Maria MD Work Phone: [facility] Work Phone: Comment on above: Patient Position: Sitting; Cuff Location : Left Arm; Cuff Size: Standard 10-18-2013 08:29-0400 BSA (Body Surface Area) 2.06 m2 Beatriz Maria MD Work Phone: [facility] Work Phone: 10-18-2013 08:29-0400 Height 162.56 cm Beatriz Maria MD Work Phone: [facility] Work Phone: 10-18-2013 08:29-0400 Pulse (Heart Rate) 58 /min Beatriz Maria MD Work Phone: [facility] Work Phone: Comment on above: Pattern: Regular 10-18-2013 08:29-0400 Pulse Oximetry 98 % Renetta Angulo [facility] Work Phone: Comment on above: Room air 10-18-2013 08:29-0400 Respiratory Rate 16 /min Beatriz Maria MD Work Phone: [facility] Work Phone: Comment on above: Pattern: Unlabored 10-18-2013 08:29-0400 SaO2% (BldA) [Mass fraction] 98 % Beatriz Maria MD Work Phone: [facility]; [facility] Work Phone: 10-18-2013 08:29-0400 Weight 102.51 kg Renetta Angulo [facility] Work Phone: 09-25-2013 14:38-0400 BMI (Body Mass Index) 39.31 kg/m2 Maddie Cannon [facility] Work Phone: 09-25-2013 14:38-0400 Body weight 103.87 kg Maddie Manwandydylan [facility] Work Phone: 09-25-2013 14:38-0400 BP Diastolic 102 mm[Hg] Maddie Cannon [facility] Work Phone: Comment on above: Patient Position: Sitting; Cuff Location : Left Arm; Cuff Size: Standard 09-25-2013 14:38-0400 BP Systolic 150 mm[Hg] Maddie Boonewandydylan [facility] Work Phone: Comment on above: Patient Position: Sitting; Cuff Location : Left Arm; Cuff Size: Standard 09-25-2013 14:38-0400 BSA (Body Surface Area) 2.07 m2 Maddie Cannon [facility] Work Phone: 09-25-2013 14:38-0400 Height 162.56 cm Maddie Cannon [facility] Work Phone: 09-25-2013 14:38-0400 Pulse (Heart Rate) 77 /min Maddie Cannon [facility] Work Phone: Comment on above: Pattern: Regular 09-25-2013 14:38-0400 Pulse Oximetry 95 % Renetta Angulo [facility] Work Phone: Comment on above: Room air 09-25-2013 14:38-0400 Respiratory Rate 16 /min Maddie Cannon [facility] Work Phone: Comment on above: Pattern: Unlabored 09-25-2013 14:38-0400 SaO2% (BldA) [Mass fraction] 95 % Maddie Cannon [facility]; [facility] Work Phone: 09-25-2013 14:38-0400 Weight 103.87 kg Renetta Angulo [facility] Work Phone: 04-12-2013 11:07-0500 BMI (Body Mass Index) 38.62 kg/m2 [facility] Work Phone: 04-12-2013 11:07-0500 Body Temperature 98 [degF] RAMIRO Pagan [facility] Work Phone: Comment on above: Method: Oral 04-12-2013 11:07-0500 Body weight 102.06 kg RAMIRO Pagan HOT BOX OPERATOR [facility] Work Phone: 04-12-2013 11:07-0500 BP Diastolic 78 mm[Hg] RAMIRO Pagan [facility] Work Phone: Comment on above: Patient Position: Sitting; Cuff Location : Left Arm; Cuff Size: Standard 04-12-2013 11:07-0500 BP Systolic 120 mm[Hg] RAMIRO Pagan [facility] Work Phone: Comment on above: Patient Position: Sitting; Cuff Location : Left Arm; Cuff Size: Standard 04-12-2013 11:07-0500 BSA (Body Surface Area) 2.06 m2 RAMIRO Pagan LPN [facility] Work Phone: 04-12-2013 11:07-0500 Height 162.56 cm RAMIRO Pagan [facility] Work Phone: 04-12-2013 11:07-0500 Pulse (Heart Rate) 70 /min RAMIRO Pagan [facility] Work Phone: Comment on above: Pattern: Regular 04-12-2013 11:07-0500 Respiratory Rate 18 /min RAMIRO Pagan [facility] Work Phone: Comment on above: Pattern: Unlabored 04-12-2013 11:07-0500 Weight 102.06 kg Renetta Angulo [facility] Work Phone: 03-15-2013 10:31-0500 BMI (Body Mass Index) 38.62 kg/m2 RAMIRO Pagan [facility] Work Phone: 03-15-2013 10:31-0500 Body Temperature 97.6 [degF] RAMIRO Pagan [facility] Work Phone: Comment on above: Method: Oral 03-15-2013 10:31-0500 Body weight 102.06 kg RAMIRO Pagan [facility] Work Phone: 03-15-2013 10:31-0500 BP Diastolic 76 mm[Hg] RAMIRO Pagan [facility] Work Phone: Comment on above: Patient Position: Sitting; Cuff Location : Left Arm; Cuff Size: Standard 03-15-2013 10:31-0500 BP Systolic 124 mm[Hg] RAMIRO Pagan [facility] Work Phone: Comment on above: Patient Position: Sitting; Cuff Location : Left Arm; Cuff Size: Standard 03-15-2013 10:31-0500 BSA (Body Surface Area) 2.06 m2 RAMIRO Pagan HOT BOX OPERATOR [facility] Work Phone: 03-15-2013 10:31-0500 Height 162.56 cm RAMIRO Pagan [facility] Work Phone: 03-15-2013 10:31-0500 Pulse (Heart Rate) 70 /min RAMIRO Pagan [facility] Work Phone: Comment on above: Pattern: Regular 03-15-2013 10:31-0500 Respiratory Rate 20 /min RAMIRO Pagan [facility] Work Phone: Comment on above: Pattern: Unlabored 03-15-2013 10:31-0500 Weight 102.06 kg Renetta Angulo [facility] Work Phone: 01-23-2013 14:33-0400 BMI (Body Mass Index) 38.62 kg/m2 Viola Tyler RN [facility] Work Phone: 01-23-2013 14:33-0400 Body Temperature 98 [degF] Viola Tyler RN [facility] Work Phone: Comment on above: Method: Temporal 01-23-2013 14:33-0400 Body weight 102.06 kg Viola Tyler RN [facility] Work Phone: 01-23-2013 14:33-0400 BP Diastolic 72 mm[Hg] Viola Tyler RN [facility] Work Phone: Comment on above: Patient Position: Sitting; Cuff Location : Left Arm; Cuff Size: Standard 01-23-2013 14:33-0400 BP Systolic 124 mm[Hg] Viola Tyler RN [facility] Work Phone: Comment on above: Patient Position: Sitting; Cuff Location : Left Arm; Cuff Size: Standard 01-23-2013 14:33-0400 BSA (Body Surface Area) 2.06 m2 Viola Tyler RN [facility] Work Phone: 01-23-2013 14:33-0400 Height 162.56 cm Viola Tyler RN [facility] Work Phone: 01-23-2013 14:33-0400 Pulse (Heart Rate) 72 /min Viola Tyler RN [facility] Work Phone: Comment on above: Pattern: Regular 01-23-2013 14:33-0400 Respiratory Rate 16 /min Viola Tyler RN [facility] Work Phone: Comment on above: Pattern: Unlabored 01-23-2013 14:33-0400 Weight 102.06 kg Renetta Angulo [facility] Work Phone: 02-17-2012 14:14-0500 BMI (Body Mass Index) 35.87 kg/m2 Viola Tyler RN [facility] Work Phone: 02-17-2012 14:14-0500 Body Temperature 97.4 [degF] Viola Tyler RN [facility] Work Phone: Comment on above: Method: Oral 02-17-2012 14:14-0500 Body weight 94.8 kg Viola Tyler RN [facility] Work Phone: 02-17-2012 14:14-0500 BP Diastolic 76 mm[Hg] Viola Tyler RN [facility] Work Phone: Comment on above: Patient Position: Sitting; Cuff Location : Left Arm; Cuff Size: Standard 02-17-2012 14:14-0500 BP Systolic 124 mm[Hg] Viola Tyler RN [facility] Work Phone: Comment on above: Patient Position: Sitting; Cuff Location : Left Arm; Cuff Size: Standard 02-17-2012 14:14-0500 BSA (Body Surface Area) 1.99 m2 Viola Tyler RN [facility] Work Phone: 02-17-2012 14:14-0500 Height 162.56 cm Viola Tyler RN [facility] Work Phone: 02-17-2012 14:14-0500 Pulse (Heart Rate) 72 /min Viola Tyler RN [facility] Work Phone: Comment on above: Pattern: Regular 02-17-2012 14:14-0500 Respiratory Rate 16 /min Viola Tyler RN [facility] Work Phone: Comment on above: Pattern: Unlabored 02-17-2012 14:14-0500 Weight 94.8 kg Renetta Angulo [facility] Work Phone: 02-11-2012 10:45-0400 BMI (Body Mass Index) 35.87 kg/m2 Vannessa Moore [employer]OX [employer] [facility] Work Phone: 02-11-2012 10:45-0400 Body Temperature 98 [degF] Vannessa Moore HOT BOX OPERATOR [facility] Work Phone: 02-11-2012 10:45-0400 Body weight 94.8 kg Vannessa Moore LPN [facility] Work Phone: 02-11-2012 10:45-0400 BSA (Body Surface Area) 1.99 m2 Vannessa Moore HOT BOX OPERATOR [facility] Work Phone: 02-11-2012 10:45-0400 Height 162.56 cm Vannessa Moore HOT BOX OPERATOR [facility] Work Phone: 02-11-2012 10:45-0400 Weight 94.8 kg Renetta Angulo [facility] Work Phone: 01-27-2012 08:29-0400 BMI (Body Mass Index) 35.87 kg/m2 RAMIRO Pagan GOVIND [facility] Work Phone: 01-27-2012 08:29-0400 Body weight 94.8 kg RAMIRO Pagan GOVIND [facility] Work Phone: 01-27-2012 08:29-0400 BP Diastolic 86 mm[Hg] RAMIRO Pagan H[employer] BOX OPERATOR [facility] Work Phone: Comment on above: Patient Position: Sitting; Cuff Location : Left Arm; Cuff Size: Standard 01-27-2012 08:29-0400 BP Systolic 142 mm[Hg] RAMIRO Pagan H[employer] BOX OPERATOR [facility] Work Phone: Comment on above: Patient Position: Sitting; Cuff Location : Left Arm; Cuff Size: Standard 01-27-2012 08:29-0400 BSA (Body Surface Area) 1.99 m2 RAMIRO Ej GOVIND [facility] Work Phone: 01-27-2012 08:29-0400 Height 162.56 cm RAMIRO Pagan LPN [facility] Work Phone: 01-27-2012 08:29-0400 Pulse (Heart Rate) 74 /min RAMIRO Pagan LPN [facility] Work Phone: Comment on above: Pattern: Regular 01-27-2012 08:29-0400 Respiratory Rate 20 /min RAMIRO Pagan LPN [facility] Work Phone: Comment on above: Pattern: Unlabored 01-27-2012 08:29-0400 Weight 94.8 kg Renetta Angulo [facility] Work Phone: 06-29-2011 14:10-0400 BMI (Body Mass Index) 35.87 kg/m2 Roxanne Vargas [facility] Work Phone: 06-29-2011 14:10-0400 Body Temperature 99.2 [degF] Roxanne Vargas [facility] Work Phone: Comment on above: Method: Oral 06-29-2011 14:10-0400 Body weight 94.8 kg Roxanne Vargas [facility] Work Phone: 06-29-2011 14:10-0400 BP Diastolic 78 mm[Hg] Roxanne Vargas H[employer] B[employer] OPER[employer] [facility] Work Phone: Comment on above: Patient Position: Sitting; Cuff Location : Left Arm; Cuff Size: Standard 06-29-2011 14:10-0400 BP Systolic 126 mm[Hg] Roxanne Vargas [employer]OX OPER[employer] [facility] Work Phone: Comment on above: Patient Position: Sitting; Cuff Location : Left Arm; Cuff Size: Standard 06-29-2011 14:10-0400 BSA (Body Surface Area) 1.99 m2 Roxanne Vargas LPN [facility] Work Phone: 06-29-2011 14:10-0400 Height 162.56 cm Roxanne Vargas [facility] Work Phone: 06-29-2011 14:10-0400 Pulse (Heart Rate) 70 /min Roxanne Vargas LPN [facility] Work Phone: Comment on above: Pattern: Regular 06-29-2011 14:10-0400 Pulse Oximetry 96 % Renetta Angulo [facility] Work Phone: Comment on above: Room air 06-29-2011 14:10-0400 Respiratory Rate 18 /min Roxanne Vargas LPN [facility] Work Phone: 06-29-2011 14:10-0400 SaO2% (BldA) [Mass fraction] 96 % Roxanne Vargas LPN [facility]; [facility] Work Phone: 06-29-2011 14:10-0400 Weight 94.8 kg Renetta Angulo [facility] Work Phone: 06-17-2011 09:03-0500 BMI (Body Mass Index) 35.87 kg/m2 RAMIRO Pagan H[employer] BOX OPERATOR [facility] Work Phone: 06-17-2011 09:03-0500 Body Temperature 98 [degF] RAMIRO Pagan LPN [facility] Work Phone: Comment on above: Method: Oral 06-17-2011 09:03-0500 Body weight 94.8 kg RAMIRO Pagan LPN [facility] Work Phone: 06-17-2011 09:03-0500 BP Diastolic 90 mm[Hg] RAMIRO Pagan H[employer] BOX OPERATOR [facility] Work Phone: Comment on above: Patient Position: Sitting; Cuff Location : Left Arm; Cuff Size: Standard 06-17-2011 09:03-0500 BP Systolic 134 mm[Hg] RAMIRO Pagan H[employer] BOX OPERATOR [facility] Work Phone: Comment on above: Patient Position: Sitting; Cuff Location : Left Arm; Cuff Size: Standard 06-17-2011 09:03-0500 BSA (Body Surface Area) 1.99 m2 RAMIRO Pagan GOVIND [facility] Work Phone: 06-17-2011 09:03-0500 Height 162.56 cm RAMIRO Pagan H[employer] BOX OPERATOR [facility] Work Phone: 06-17-2011 09:03-0500 Pulse (Heart Rate) 70 /min RAMRIO Pagan GOVIND [facility] Work Phone: Comment on above: Pattern: Regular 06-17-2011 09:03-0500 Respiratory Rate 18 /min RAMIRO Pagan GOVIND [facility] Work Phone: Comment on above: Pattern: Unlabored 06-17-2011 09:03-0500 Weight 94.8 kg Renetta Angulo [facility] Work Phone: 06-01-2011 15:28-0500 BMI (Body Mass Index) 36.22 kg/m2 Viola Tyler RN [facility] Work Phone: 06-01-2011 15:28-0500 Body Temperature 99.3 [degF] Viola Tyler RN [facility] Work Phone: Comment on above: Method: Oral 06-01-2011 15:28-0500 Body weight 95.71 kg Viola Tyler RN [facility] Work Phone: 06-01-2011 15:28-0500 BP Diastolic 74 mm[Hg] Viola Tyler RN [facility] Work Phone: Comment on above: Patient Position: Sitting; Cuff Location : Left Arm; Cuff Size: Standard 06-01-2011 15:28-0500 BP Systolic 122 mm[Hg] Voila Tyler RN [facility] Work Phone: Comment on above: Patient Position: Sitting; Cuff Location : Left Arm; Cuff Size: Standard 06-01-2011 15:28-0500 BSA (Body Surface Area) 2 m2 Viola Tyler RN [facility] Work Phone: 06-01-2011 15:28-0500 Height 162.56 cm Viola Tyler RN [facility] Work Phone: 06-01-2011 15:28-0500 Pulse (Heart Rate) 76 /min Viola Tyler RN [facility] Work Phone: Comment on above: Pattern: Regular 06-01-2011 15:28-0500 Pulse Oximetry 95 % Renetta Angulo [facility] Work Phone: Comment on above: Room air 06-01-2011 15:28-0500 Respiratory Rate 16 /min Viola Tyler RN [facility] Work Phone: Comment on above: Pattern: Unlabored 06-01-2011 15:28-0500 SaO2% (BldA) [Mass fraction] 95 % Viola Tyler RN [facility]; [facility] Work Phone: 06-01-2011 15:28-0500 Weight 95.71 kg Renetta Angulo [facility] Work Phone: 12-21-2010 13:53-0400 BMI (Body Mass Index) 36.22 kg/m2 RAMIRO Pagan LPN [facility] Work Phone: 12-21-2010 13:53-0400 Body Temperature 98 [degF] RAMIRO Pagan LPN [facility] Work Phone: Comment on above: Method: Oral 12-21-2010 13:53-0400 Body weight 95.71 kg RAMIRO Ej FAUST [facility] Work Phone: 12-21-2010 13:53-0400 BP Diastolic 94 mm[Hg] RAMIRO Pagan LPN [facility] Work Phone: Comment on above: Patient Position: Sitting; Cuff Location : Left Arm; Cuff Size: Standard 12-21-2010 13:53-0400 BP Systolic 136 mm[Hg] RAMIRO Pagan LPN [facility] Work Phone: Comment on above: Patient Position: Sitting; Cuff Location : Left Arm; Cuff Size: Standard 12-21-2010 13:53-0400 BSA (Body Surface Area) 2 m2 RAMIRO Pagan LPN [facility] Work Phone: 12-21-2010 13:53-0400 Height 162.56 cm RAMIRO Pagan LPN [facility] Work Phone: 12-21-2010 13:53-0400 Pulse (Heart Rate) 74 /min RAMIRO Pagan LPN [facility] Work Phone: Comment on above: Pattern: Regular 12-21-2010 13:53-0400 Respiratory Rate 18 /min RAMIRO Pagan GOVIND [facility] Work Phone: Comment on above: Pattern: Unlabored 12-21-2010 13:53-0400 Weight 95.71 kg Renetta Angulo [facility] Work Phone: 09-14-2010 16:01-0400 BMI (Body Mass Index) 37.93 kg/m2 Viola Tyler RN [facility] Work Phone: 09-14-2010 16:01-0400 Body Temperature 97.9 [degF] Viola Tyler RN [facility] Work Phone: Comment on above: Method: Oral 09-14-2010 16:01-0400 Body weight 100.25 kg Viola Tyler RN [facility] Work Phone: 09-14-2010 16:01-0400 BP Diastolic 76 mm[Hg] Viola Tyler RN [facility] Work Phone: Comment on above: Patient Position: Sitting; Cuff Location : Left Arm; Cuff Size: Standard 09-14-2010 16:01-0400 BP Systolic 112 mm[Hg] Viola Tyler RN [facility] Work Phone: Comment on above: Patient Position: Sitting; Cuff Location : Left Arm; Cuff Size: Standard 09-14-2010 16:01-0400 BSA (Body Surface Area) 2.04 m2 Viola Tyler RN [facility] Work Phone: 09-14-2010 16:01-0400 Height 162.56 cm Viola Tyler RN [facility] Work Phone: 09-14-2010 16:01-0400 Pulse (Heart Rate) 68 /min Viola Tyler RN [facility] Work Phone: Comment on above: Pattern: Regular 09-14-2010 16:01-0400 Respiratory Rate 16 /min Viola Tyler RN [facility] Work Phone: Comment on above: Pattern: Unlabored 09-14-2010 16:01-0400 Weight 100.25 kg Renetta Angulo [facility] Work Phone: 09-01-2010 13:51-0400 BMI (Body Mass Index) 37.93 kg/m2 Roxanne Vargas LPN [facility] Work Phone: 09-01-2010 13:51-0400 Body Temperature 97.9 [degF] Roxanne Vargas [facility] Work Phone: Comment on above: Method: Oral 09-01-2010 13:51-0400 Body weight 100.25 kg Roxanne Vargas LPN [facility] Work Phone: 09-01-2010 13:51-0400 BP Diastolic 80 mm[Hg] Roxanne Vargas LPN [facility] Work Phone: Comment on above: Patient Position: Sitting; Cuff Location : Left Arm; Cuff Size: Standard 09-01-2010 13:51-0400 BP Systolic 124 mm[Hg] Roxanne Vargas LPN [facility] Work Phone: Comment on above: Patient Position: Sitting; Cuff Location : Left Arm; Cuff Size: Standard 09-01-2010 13:51-0400 BSA (Body Surface Area) 2.04 m2 Roxanne Vargas LPN [facility] Work Phone: 09-01-2010 13:51-0400 Height 162.56 cm Roxanne Vargas LPN [facility] Work Phone: 09-01-2010 13:51-0400 Pulse (Heart Rate) 72 /min Roxanne Vargas LPN [facility] Work Phone: Comment on above: Pattern: Regular 09-01-2010 13:51-0400 Respiratory Rate 16 /min Roxanne Vargas LPN [facility] Work Phone: Comment on above: Pattern: Unlabored 09-01-2010 13:51-0400 Weight 100.25 kg Renetta Angulo [facility] Work Phone: 12-09-2009 15:14-0400 Body Temperature 97.9 [degF] RAMIRO Pagan [facility] Work Phone: Comment on above: Method: Oral 12-09-2009 15:14-0400 Body weight 100.25 kg RAMIRO Pagan [facility] Work Phone: 12-09-2009 15:14-0400 BP Diastolic 78 mm[Hg] RAMIRO Pagan [facility] Work Phone: Comment on above: Patient Position: Sitting; Cuff Location : Left Arm; Cuff Size: Standard 12-09-2009 15:14-0400 BP Systolic 124 mm[Hg] RAMIRO Pagan [facility] Work Phone: Comment on above: Patient Position: Sitting; Cuff Location : Left Arm; Cuff Size: Standard 12-09-2009 15:14-0400 Pulse (Heart Rate) 74 /min RAMIRO Pagan [facility] Work Phone: Comment on above: Pattern: Regular 12-09-2009 15:14-0400 Respiratory Rate 18 /min RAMIRO Pagan [facility] Work Phone: Comment on above: Pattern: Unlabored 12-09-2009 15:14-0400 Weight 100.25 kg Renetta Angulo [facility] Work Phone: 09-24-2009 13:32-0400 Body Temperature 97.3 [degF] Roxanne Vargas [facility] Work Phone: Comment on above: Method: Oral 09-24-2009 13:32-0400 Body weight 102.97 kg Roxanne Vargas [facility] Work Phone: 09-24-2009 13:32-0400 BP Diastolic 70 mm[Hg] Roxanne Vargas [facility] Work Phone: Comment on above: Patient Position: Sitting; Cuff Location : Left Arm; Cuff Size: Standard 09-24-2009 13:32-0400 BP Systolic 118 mm[Hg] Roxanne Vargas [facility] Work Phone: Comment on above: Patient Position: Sitting; Cuff Location : Left Arm; Cuff Size: Standard 09-24-2009 13:32-0400 Pulse (Heart Rate) 74 /min Roxanne Vargas [facility] Work Phone: Comment on above: Pattern: Regular 09-24-2009 13:32-0400 Respiratory Rate 18 /min Roxanne Vargas H[employer] BOX OPERATOR [facility] Work Phone: Comment on above: Pattern: Unlabored 09-24-2009 13:32-0400 Weight 102.97 kg Renetta Angulo [facility] Work Phone: 06-16-2009 16:35-0500 Body weight 102.97 kg Reny Bird RN [facility] Work Phone: 06-16-2009 16:35-0500 BP Diastolic 84 mm[Hg] Reny Bird RN [facility] Work Phone: Comment on above: Patient Position: Sitting; Cuff Location : Left Arm; Cuff Size: Large 06-16-2009 16:35-0500 BP Systolic 138 mm[Hg] Reny Bird RN [facility] Work Phone: Comment on above: Patient Position: Sitting; Cuff Location : Left Arm; Cuff Size: Large 06-16-2009 16:35-0500 Pulse (Heart Rate) 80 /min Reny Bird RN [facility] Work Phone: Comment on above: Pattern: Regular 06-16-2009 16:35-0500 Respiratory Rate 20 /min Reny Bird RN [facility] Work Phone: Comment on above: Pattern: Unlabored 06-16-2009 16:35-0500 Weight 102.97 kg Renetta Angulo [facility] Work Phone: 05-28-2009 13:24-0500 Body Temperature 98.6 [degF] [facility] Work Phone: Comment on above: Method: Oral 05-28-2009 13:24-0500 BP Diastolic 68 mm[Hg] [facility] Work Phone: Comment on above: Patient Position: Sitting; Cuff Location : Left Arm; Cuff Size: Large 05-28-2009 13:24-0500 BP Systolic 108 mm[Hg] Maricarmen [facility] Work Phone: Comment on above: Patient Position: Sitting; Cuff Location : Left Arm; Cuff Size: Large 05-28-2009 13:24-0500 Pulse (Heart Rate) 60 /min [facility] Work Phone: Comment on above: Pattern: Regular 05-28-2009 13:24-0500 Respiratory Rate 18 /min [facility] Work Phone: Comment on above: Pattern: Unlabored 05-13-2009 08:32-0500 Body Temperature 98.6 [degF] Reny Bird RN [facility] Work Phone: Comment on above: Method: Oral 05-13-2009 08:32-0500 Body weight 102.97 kg Reny Bird RN [facility] Work Phone: 05-13-2009 08:32-0500 BP Diastolic 80 mm[Hg] Reny Bird RN [facility] Work Phone: Comment on above: Patient Position: Sitting; Cuff Location : Left Arm; Cuff Size: Large 05-13-2009 08:32-0500 BP Systolic 122 mm[Hg] Reny Bird RN [facility] Work Phone: Comment on above: Patient Position: Sitting; Cuff Location : Left Arm; Cuff Size: Large 05-13-2009 08:32-0500 Pulse (Heart Rate) 60 /min Reny Bird RN [facility] Work Phone: Comment on above: Pattern: Regular 05-13-2009 08:32-0500 Respiratory Rate 20 /min Reny Bird RN [facility] Work Phone: Comment on above: Pattern: Unlabored 05-13-2009 08:32-0500 Weight 102.97 kg Renetta Angulo [facility] Work Phone: 12-10-2008 15:18-0400 Body weight 0 kg RAMIRO Pagan LPN [facility] Work Phone: 12-10-2008 15:18-0400 BP Diastolic 86 mm[Hg] RAMIRO Pagan LPN [facility] Work Phone: Comment on above: Patient Position: Sitting; Cuff Location : Left Arm; Cuff Size: Large 12-10-2008 15:18-0400 BP Systolic 128 mm[Hg] RAMIRO Pagan [facility] Work Phone: Comment on above: Patient Position: Sitting; Cuff Location : Left Arm; Cuff Size: Large 12-10-2008 15:18-0400 Head Circumference 0 cm Renetta Angulo [facility] Work Phone: 12-10-2008 15:18-0400 Head Occipital-frontal circumference 0 cm RAMIRO Pagan H[employer] BOX OPERATOR [facility]; [facility] Work Phone: 12-10-2008 15:18-0400 Height 0 cm RAMIRO Pagan [facility] Work Phone: 12-10-2008 15:18-0400 Pulse (Heart Rate) 74 /min RAMIRO Pagan [facility] Work Phone: Comment on above: Pattern: Regular 12-10-2008 15:18-0400 Respiratory Rate 18 /min RAMIRO Pagan [facility] Work Phone: Comment on above: Pattern: Unlabored 12-10-2008 15:18-0400 Weight 0 kg Renetta Angulo [facility] Work Phone: 11-26-2008 12:01-0400 Body weight 0 kg RAMIRO Pagan H[employer] BOX OPERATOR [facility] Work Phone: 11-26-2008 12:01-0400 BP Diastolic 90 mm[Hg] RAMIRO Pagan [facility] Work Phone: Comment on above: Patient Position: Sitting; Cuff Location : Left Arm; Cuff Size: Large 11-26-2008 12:01-0400 BP Systolic 124 mm[Hg] RAMIRO Pagan [facility] Work Phone: Comment on above: Patient Position: Sitting; Cuff Location : Left Arm; Cuff Size: Large 11-26-2008 12:01-0400 Head Circumference 0 cm Renetta Angulo [facility] Work Phone: 11-26-2008 12:01-0400 Head Occipital-frontal circumference 0 cm RAMIRO Pagan [facility]; [facility] Work Phone: 11-26-2008 12:01-0400 Height 0 cm RAMIRO Pagan LPN [facility] Work Phone: 11-26-2008 12:01-0400 Pulse (Heart Rate) 68 /min RAMIRO Pagan LPN [facility] Work Phone: Comment on above: Pattern: Regular 11-26-2008 12:01-0400 Respiratory Rate 16 /min RAMIRO Pagan LPN [facility] Work Phone: Comment on above: Pattern: Unlabored 11-26-2008 12:01-0400 Weight 0 kg Renetta Angulo [facility] Work Phone: 07-29-2008 15:07-0400 Body weight 102.97 kg RAMIRO Pagan H[employer] BOX OPERATOR [facility] Work Phone: 07-29-2008 15:07-0400 BP Diastolic 82 mm[Hg] RAMIRO Pagan [facility] Work Phone: Comment on above: Patient Position: Sitting; Cuff Location : Left Arm; Cuff Size: Large 07-29-2008 15:07-0400 BP Systolic 126 mm[Hg] RAMIRO Pagan [facility] Work Phone: Comment on above: Patient Position: Sitting; Cuff Location : Left Arm; Cuff Size: Large 07-29-2008 15:07-0400 Head Circumference 0 cm Renetta Angulo [facility] Work Phone: 07-29-2008 15:07-0400 Head Occipital-frontal circumference 0 cm RAMIRO Pagan LPN [facility]; [facility] Work Phone: 07-29-2008 15:07-0400 Height 0 cm RAMIRO Pagan H[employer] BOX OPERATOR [facility] Work Phone: 07-29-2008 15:07-0400 Pulse (Heart Rate) 74 /min RAMIRO aPgan LPN [facility] Work Phone: Comment on above: Pattern: Regular 07-29-2008 15:07-0400 Respiratory Rate 18 /min RAMIRO Pagan H[employer] BOX OPER[employer] [facility] Work Phone: Comment on above: Pattern: Unlabored 07-29-2008 15:07-0400 Weight 102.97 kg Renetta Angulo [facility] Work Phone: 07-02-2008 15:03-0400 Body Temperature 99.4 [degF] [facility] Work Phone: Comment on above: Method: Oral 07-02-2008 15:03040 Body weight 103.42 kg [facility] Work Phone: 07-02-2008 15:03-0400 BP Diastolic 68 mm[Hg] [facility] Work Phone: Comment on above: Patient Position: Sitting; Cuff Location : Right Arm; Cuff Size: Large 07-02-2008 15:03-0400 BP Systolic 120 mm[Hg] [facility] Work Phone: Comment on above: Patient Position: Sitting; Cuff Location : Right Arm; Cuff Size: Large 07-02-2008 15:03-0400 Head Circumference 0 cm Renetta Angulo [facility] Work Phone: 07-02-2008 15:03-0400 Head Occipital-frontal circumference 0 cm [facility]; [facility] Work Phone: 07-02-2008 15:03-0400 Height 0 cm [facility] Work Phone: 07-02-2008 15:03-0400 Pulse (Heart Rate) 52 /min [facility] Work Phone: Comment on above: Pattern: Regular 07-02-2008 15:03-0400 Respiratory Rate 18 /min [facility] Work Phone: Comment on above: Pattern: Unlabored 07-02-2008 15:03-0400 Weight 103.42 kg Renetta Angulo [facility] Work Phone: 03-28-2008 11:31-0500 Body weight 100.25 kg RAMIRO Ej HOT BOX OPERATOR [facility] Medicine Work Phone: 03-28-2008 11:31-0500 BP Diastolic 80 mm[Hg] RAMIRO Pagan LPN [facility] Work Phone: Comment on above: Patient Position: Sitting; Cuff Location : Left Arm; Cuff Size: Large 03-28-2008 11:31-0500 BP Systolic 124 mm[Hg] RAMIRO Pagan [facility] Medicine Work Phone: Comment on above: Patient Position: Sitting; Cuff Location : Left Arm; Cuff Size: Large 03-28-2008 11:31-0500 Head Circumference 0 cm Renetta Angulo [facility] Work Phone: 03-28-2008 11:31-0500 Head Occipital-frontal circumference 0 cm RAMIRO Pagan LPN [facility]; [facility] Work Phone: 03-28-2008 11:31-0500 Height 0 cm RAMIRO Pagan LPN [facility] Work Phone: 03-28-2008 11:31-0500 Pulse (Heart Rate) 74 /min RAMIRO Pagan [facility] Work Phone: Comment on above: Pattern: Regular 03-28-2008 11:31-0500 Respiratory Rate 16 /min RAMIRO Pagan LPN [facility] Work Phone: Comment on above: Pattern: Unlabored 03-28-2008 11:31-0500 Weight 100.25 kg Renetta Angulo [facility] Work Phone: 05-16-2007 14:59-0500 Body Temperature 97.4 [degF] RAMIRO Pagan [facility] Work Phone: Comment on above: Method: Oral 05-16-2007 14:59-0500 Body weight 0 kg RAMIRO Pagan LPN [facility] Work Phone: 05-16-2007 14:59-0500 BP Diastolic 80 mm[Hg] RAMIRO Pagan [facility] Work Phone: Comment on above: Patient Position: Sitting; Cuff Location : Left Arm; Cuff Size: Large 05-16-2007 14:59-0500 BP Systolic 122 mm[Hg] RAMIRO Pagan [facility] Work Phone: Comment on above: Patient Position: Sitting; Cuff Location : Left Arm; Cuff Size: Large 05-16-2007 14:59-0500 Head Circumference 0 cm Renetta Angulo [facility] Work Phone: 05-16-2007 14:59-0500 Head Occipital-frontal circumference 0 cm RAMIRO Pagan [facility]; [facility] Work Phone: 05-16-2007 14:59-0500 Height 0 cm RAMIRO Pagan [facility] Work Phone: 05-16-2007 14:59-0500 Pulse (Heart Rate) 70 /min RAMIRO Pagan [facility] Work Phone: Comment on above: Pattern: Regular 05-16-2007 14:59-0500 Respiratory Rate 18 /min RAMIRO Pagan [facility] Work Phone: Comment on above: Pattern: Unlabored 05-16-2007 14:59-0500 [facility] Work Phone: 04-24-2007 15:07-0500 Body Temperature 97.8 [degF] [facility] Work Phone: Comment on above: Method: Oral 04-24-2007 15:07-0500 Body weight 104.33 kg [facility] Work Phone: 04-24-2007 15:07-0500 BP Diastolic 84 mm[Hg] [facility] Work Phone: Comment on above: Patient Position: Sitting; Cuff Location : Left Arm; Cuff Size: Large 04-24-2007 15:07-0500 BP Systolic 124 mm[Hg] [facility] Work Phone: Comment on above: Patient Position: Sitting; Cuff Location : Left Arm; Cuff Size: Large 04-24-2007 15:07-0500 Head Circumference 0 cm Renetta Angulo [facility] Work Phone: 04-24-2007 15:07-0500 Head Occipital-frontal circumference 0 cm [facility]; [facility] Work Phone: 04-24-2007 15:07-0500 Height 0 cm Maricarmen [facility] Work Phone: 04-24-2007 15:07-0500 Pulse (Heart Rate) 76 /min Maricarmen [facility] Work Phone: Comment on above: Pattern: Regular 04-24-2007 15:07-0500 Respiratory Rate 18 /min Maricarmen [facility] Work Phone: Comment on above: Pattern: Unlabored 04-24-2007 15:07-0500 Weight 104.33 kg Renetta Angulo [facility] Work Phone: 06-27-2006 16:19-0400 Body Temperature 98.9 [degF] RAMIRO Pagan [facility] Work Phone: Comment on above: Method: Oral 06-27-2006 16:19-0400 Body weight 0 kg RAMIRO Pagan HOT BOX OPERATOR [facility] Work Phone: 06-27-2006 16:19-0400 BP Diastolic 70 mm[Hg] RAMIRO Pagan [facility] Work Phone: Comment on above: Patient Position: Sitting; Cuff Location : Left Arm; Cuff Size: Standard 06-27-2006 16:19-0400 BP Systolic 118 mm[Hg] RAMIOR Pagan [facility] Work Phone: Comment on above: Patient Position: Sitting; Cuff Location : Left Arm; Cuff Size: Standard 06-27-2006 16:19-0400 Head Circumference 0 cm Renetta Angulo [facility] Work Phone: 06-27-2006 16:19-0400 Head Occipital-frontal circumference 0 cm RAMIRO Pagan LPN [facility]; [facility] Work Phone: 06-27-2006 16:19-0400 Height 0 cm RAMIRO Pagan HOT BOX OPERATOR [facility] Work Phone: 06-27-2006 16:19-0400 Pulse (Heart Rate) 74 /min RAMIRO Pagan HOT BOX OPERATOR [facility] Work Phone: Comment on above: Pattern: Regular 06-27-2006 16:19-0400 Respiratory Rate 22 /min RAMIRO Ej FAUST [facility] Work Phone: Comment on above: Pattern: Unlabored 06-27-2006 16:19-0400 Weight 0 kg Renetta Angulo [facility] Work Phone: 01-18-2006 15:00-0400 Body Temperature 98.6 [degF] Renetta Angulo [facility] Work Phone: Comment on above: Method: Undefined 01-18-2006 15:00-0400 Body weight 97.52 kg Renetta Angulo [facility] Work Phone: 01-18-2006 15:00-0400 BP Diastolic 70 mm[Hg] Renetta Angulo [facility] Work Phone: Comment on above: Patient Position: Sitting; Cuff Location : Left Arm; Cuff Size: Standard 01-18-2006 15:00-0400 BP Systolic 110 mm[Hg] Renetta Angulo [facility] Work Phone: Comment on above: Patient Position: Sitting; Cuff Location : Left Arm; Cuff Size: Standard 01-18-2006 15:00-0400 Head Circumference 0 cm Renetta Angulo [facility] Work Phone: 01-18-2006 15:00-0400 Head Occipital-frontal circumference 0 cm Renetta Angulo DO Work Phone: [facility] Work Phone: 01-18-2006 15:00-0400 Height 0 cm Renetta Angulo [facility] Work Phone: 01-18-2006 15:00-0400 Pulse (Heart Rate) 64 /min Renetta Angulo [facility] Work Phone: Comment on above: Pattern: Regular 01-18-2006 15:00-0400 Weight 97.52 kg Renetta Angulo [facility] Work Phone: Encounters Encounter Date Encounter Type Care Provider Facility Start: 12-14-2024 ambulatory Renettabriana Angulo Facilit y:[facility] [place] Start: 11-07-2024 End: 11-07-2024 Patient encounter procedure Raymundo Ivan HOT BOX OPERATOR-[facility] Work Phone: Start: 11-07-2024 End: 11-07-[address] Renetta Angulo DO Work Phone: [facility] Start: 10-09-2024 Non-patient / Non-visit Dr. Mira epperson MD [facility] Work Phone: Start: 07-07-2024 End: 07-07-[address] Renetta Angulo DO Work Phone: [facility] Work Phone: Start: 07-07-2024 End: 07-07-[address] Renetta Angulo DO -Laboratory Work Phone: Start: 07-07-2024 End: 07-07-2024 ambulatory Renetta Angulo Facility:[facility] Start: 06-22-2023 End: 06-23-2023 ambulatory YOBANI DREW Facility:[facility] Start: 06-22-2023 End: 06-22-2023 Patient encounter procedure [facility]RE[facility] Start: 06-06-2023 End: 06-06-2023 ambulatory [facility] Work Phone: Start: 06-06-2023 End: 06-06-2023 Patient encounter procedure [facility] Work Phone: Start: 03-09-2023 End: 03-09-2023 ambulatory [facility] Work Phone: Start: 03-09-2023 End: 03-09-2023 Patient encounter procedure [facility] Work Phone: Start: 12-20-2022 End: 12-20-2022 ambulatory [facility] Work Phone: Start: 12-20-2022 End: 12-20-2022 Patient encounter procedure [facility] Work Phone: Start: 12-20-2022 End: 12-20-2022 Office outpatient visit 25 minutes Renetta Wardon DO Work Phone: [facility] Start: 12-20-2022 Renetta Wardjamia n DO Work Phone: [facility] Start: 12-14-2022 End: 12-14-2022 ambulatory PARRISH AZEVEDO Facility:[facility] Start: 12-14-2022 End: 12-14-2022 Subsequent hospital visit by physician Xr [facility] [place] Work Phone: Radiology Comment on above: Acute cough [R05.1] Start: 12-14-2022 Telephone encounter Parrish Azevedo APRN.FIRE PROTECTION INSPECTOR Work Phone: [facility] Comment on above: Results Start: 12-13-2022 End: 12-13-2022 ambulatory RENETTA ANGULO Facility:[facility] Start: 12-13-2022 End: 12-13-2022 Patient encounter procedure Parrish Azevedo APRN.FIRE PROTECTION INSPECTOR Work Phone: [facility] Comment on above: Acute cough (Primary Dx); URI, acute Start: 10-13-2022 End: 10-13-2022 ambulatory [facility] Work Phone: Start: 10-13-2022 End: 10-13-2022 Patient encounter procedure [facility]-Ultrasound, [facility] Work Phone: Start: 09-22-2022 End: 09-22-2022 ambulatory [facility] Work Phone: Start: 09-22-2022 End: 09-22-2022 Patient encounter procedure [facility]-Outpatient Breast Imaging Start: 08-24-2022 End: 08-24-2022 Renetta Julissa DO Work Phone: [facility] Start: 07-08-2022 ambulatory Renetta Angulo DO [facility] Start: 07-08-2022 End: 07-08-2022 Office outpatient visit 5 minutes Renetta Julissa DO Work Phone: [facility] Start: 04-15-2022 Renetta vu DO Work Phone: [facility] Start: 04-15-2022 End: 04-16-2022 Office outpatient visit 25 minutes Renetta Angulo DO Work Phone: [facility] Start: 12-07-2021 End: 12-07-2021 Office outpatient visit 25 minutes Renetta Angulo DO Work Phone: [facility] Start: 11-04-2021 End: 11-04-[address] Renetta Angulo Work Phone: [facility] Start: 11-04-[address] Shoshana Angulo Work Phone: [facility]-Physical Therapy Start: 10-21-2021 End: 10-21-[address] Renetta Angulo Work Phone: [facility]-Physical Therapy Start: 10-07-2021 End: 10-07-[address] Renetta Angulo Work Phone: [facility] Start: 10-03-2021 End: 10-03-[address] Renetta Angulo Work Phone: [facility] Start: 09-02-2021 End: 09-02-[address] Renetta Angulo Work Phone: [facility]-Physical Therapy Start: 09-02-[address] Shoshana Angulo Work Phone: [facility]-Physical Therapy Start: 07-20-2021 End: 07-20-[address] Renetta Angulo Work Phone: [facility] Start: 01-21-2021 End: 01-21-2021 Renetta Angulo DO Work Phone: [facility] Start: 01-12-2021 End: 01-12-2021 Office outpatient visit 25 minutes Renteta Julissa DO Work Phone: [facility] Start: 12-22-2020 End: 12-22-2020 Office outpatient visit 15 minutes Renetta Julissa DO Work Phone: [facility] Start: 12-05-2020 Renettabriana Wardo n DO Work Phone: [facility] Start: 05-01-2020 End: 05-01-2020 Office outpatient visit 15 minutes Renetta Julissa [facility] Start: 04-01-2020 End: 04-01-2020 Annotation/Addendum Renetta Julissa [facility] Start: 04-01-2020 End: 04-01-2020 Renetta Julissa DO Work Phone: [facility] Start: 04-01-2020 End: 04-01-2020 Annotation/Addendum Renteta Julissa [facility] Start: 04-01-2020 End: 04-01-2020 Renetta Julissa DO Work Phone: [facility] Start: 03-31-2020 End: 03-31-2020 Office outpatient visit 25 minutes Renetta Julissa [facility] Start: 02-11-2020 End: 02-11-2020 Annotation/Addendum Renetta Julissa [facility] Start: 02-11-2020 End: 02-11-2020 Renetta Julissa DO Work Phone: [facility] Start: 02-08-2020 End: 02-08-2020 Office outpatient visit 15 minutes Renetta Julissa [facility] Start: 02-08-2020 Review Renetta Julissa [facility] Start: 11-26-2019 End: 11-26-2019 Office outpatient visit 25 minutes Renetta Julissa [facility] Start: 11-26-2019 Review Renetta Julissa [facility] Start: 07-04-2019 End: 07-04-2019 Office outpatient visit 25 minutes Renetta Julissa [facility] Start: 04-18-2019 End: 04-18-2019 Office outpatient visit 15 minutes Renetta Julissa [facility] Start: 04-12-2019 End: 04-12-2019 Patient encounter status Renetta Angulo DO Work Phone: [facility] Start: 04-12-2019 End: 04-12-2019 Periodic preventive med est patient 40-64yrs Renetta Wardon [facility] Start: 01-10-2019 End: 01-10-2019 Annotation/Addendum Renetta Angulo [facility] Start: 01-10-2019 End: 01-10-2019 Renetta Angulo DO Work Phone: [facility] Start: 10-13-2018 End: 10-13-2018 Office outpatient visit 15 minutes Renetta Angulo [facility] Start: 07-14-2018 End: 07-14-2018 Office outpatient visit 10 minutes Renetta Angulo [facility] Start: 06-22-2018 End: 06-22-2018 Office outpatient visit 15 minutes Renetta Angulo [facility] Start: 06-16-2018 End: 06-16-2018 Office outpatient visit 15 minutes Renetta Angulo [facility] Start: 01-23-2018 End: 01-23-2018 Office outpatient visit 15 minutes Renetta Julissa [facility] Start: 11-21-2017 End: 11-21-2017 Patient encounter status Renetta Angulo DO Work Phone: [facility] Start: 11-21-2017 End: 11-21-2017 Periodic preventive med est patient 40-64yrs Renetta Angulo [facility] Start: 11-18-2017 End: 11-18-2017 Office outpatient visit 25 minutes Renetta Angulo [facility] Start: 10-27-2017 End: 10-27-2017 Office outpatient visit 15 minutes Renetta Angulo [facility] Start: 08-12-2017 End: 08-12-2017 Phone Encounter Renetta Angulo [facility] Start: 08-12-2017 End: 08-12-2017 Renettabriana Angulo DO Work Phone: [facility] Start: 07-20-2017 End: 07-20-2017 Office outpatient visit 15 minutes Renetta Angulo [facility] Start: 06-17-2017 End: 06-17-2017 Office outpatient visit 25 minutes Renetta Angulo [facility] Start: 10-19-2016 End: 10-19-2016 Office outpatient visit 15 minutes Renetta Julissa [facility] Start: 10-01-2016 End: 10-01-2016 Office outpatient visit 25 minutes Renetta Angulo [facility] Start: 04-19-2016 End: 04-19-2016 Office outpatient visit 25 minutes Renetta Julissa [facility] Start: 02-20-2016 End: 02-22-2016 Office outpatient visit 15 minutes Renetta Angulo [facility] Start: 02-16-2016 End: 02-16-2016 Office outpatient visit 15 minutes Renetta Angulo [facility] Start: 12-22-2015 End: 12-22-2015 Office outpatient visit 25 minutes Renetta Angulo [facility] Start: 08-04-2015 End: 08-04-2015 Office outpatient visit 15 minutes Renetta Angulo [facility] Start: 06-04-2015 End: 06-04-2015 Office outpatient visit 25 minutes Renetta Angulo [facility] Start: 03-03-2015 End: 03-03-2015 Office outpatient visit 25 minutes Renetta Angulo [facility] Start: 01-27-2015 End: 01-27-2015 Office outpatient visit 15 minutes Renetta Julissa [facility] Start: 12-06-2014 End: 12-06-2014 Periodic preventive med est patient 18-39 yrs Renetta Julissa [facility] Start: 11-01-2014 End: 11-01-2014 Office outpatient visit 10 minutes Renetta Julissa [facility] Start: 04-22-2014 End: 04-22-2014 Periodic preventive med est patient 18-39 yrs Renetta Julissa [facility] Start: 10-18-2013 End: 10-18-2013 Patient encounter Renettabriana Wardon [facility] Start: 10-18-2013 End: 10-18-2013 Renetta Angulo DO Work Phone: [facility] Start: 09-25-2013 End: 09-25-2013 Office outpatient visit 25 minutes Renetta Angulo [facility] Start: 04-12-2013 End: 04-12-2013 Patient encounter Renettabriana Wardon [facility] Start: 04-12-2013 End: 04-12-2013 Renetta Angulo DO Work Phone: [facility] Start: 03-15-2013 End: 03-15-2013 Patient encounter Renetta Angulo [facility] Start: 03-15-2013 End: 03-15-2013 Renetta Angulo DO Work Phone: [facility] Start: 01-23-2013 End: 01-23-2013 Patient encounter Renetta Angulo [facility] Start: 01-23-2013 End: 01-23-2013 Physical examination Renetta Angulo DO Work Phone: [facility] Start: 01-23-2013 End: 01-23-2013 Renetta Angulo DO Work Phone: [facility] Start: 07-25-2012 End: 07-25-2012 Prescription Refill Renetta Angulo [facility] Start: 07-25-2012 End: 07-25-2012 Renetta Angulo DO Work Phone: [facility] Start: 02-17-2012 End: 02-17-2012 Patient encounter Renetta Angulo [facility] Start: 02-17-2012 End: 02-17-2012 Renetta Angulo DO Work Phone: [facility] Start: 02-11-2012 End: 02-14-2012 Patient encounter Renetta Angulo [facility] Start: 02-11-2012 End: 02-14-2012 Renetta Angulo DO Work Phone: [facility] Start: 01-27-2012 End: 01-27-2012 Patient encounter Renetta Angulo [facility] Start: 01-27-2012 End: 01-27-2012 Renetta Angulo DO Work Phone: [facility] Start: 06-29-2011 End: 06-29-2011 Patient encounter Renetta Angulo [facility] Start: 06-29-2011 End: 06-29-2011 Renetta Julissa DO Work Phone: [facility] Start: 06-17-2011 End: 06-17-2011 Patient encounter Renetta Angulo [facility] Start: 06-17-2011 End: 06-17-2011 Renetta Julissa DO Work Phone: [facility] Start: 06-01-2011 End: 06-01-2011 Office outpatient visit 15 minutes Renetta Angulo [facility] Start: 12-21-2010 End: 12-21-2010 Patient encounter Renetta Angulo [facility] Start: 12-21-2010 End: 12-21-2010 Renetta Angulo DO Work Phone: [facility] Start: 09-14-2010 End: 09-14-2010 Patient encounter Renetta Angulo [facility] Start: 09-14-2010 End: 09-14-2010 Renetta Angulo DO Work Phone: [facility] Start: 09-01-2010 End: 09-01-2010 Office outpatient visit 15 minutes Renetta Angulo [facility] Start: 12-09-2009 End: 12-09-2009 Patient encounter Renetta Angulo [facility] Start: 12-09-2009 End: 12-09-2009 Renetta Angulo DO Work Phone: [facility] Start: 09-24-2009 End: 09-24-2009 Office outpatient visit 15 minutes Renetta Angulo [facility] Start: 06-16-2009 End: 06-16-2009 Patient encounter Renetta Angulo [facility] Start: 06-16-2009 End: 06-16-2009 Renetta Angulo DO Work Phone: [facility] Start: 05-28-2009 End: 05-28-2009 Office outpatient visit 25 minutes Renetta Angulo [facility] Start: 05-13-2009 End: 05-13-2009 Patient encounter Renetta Angulo [facility] Start: 05-13-2009 End: 05-13-2009 Renetta Angulo DO Work Phone: [facility] Start: 12-10-2008 End: 12-10-2008 Office outpatient visit 15 minutes Renetta Angulo [facility] Start: 11-26-2008 End: 11-26-2008 Office outpatient visit 15 minutes Renetta Angulo [facility] Start: 10-31-2008 End: 10-31-2008 Phone Encounter Renetta Angulo [facility] Start: 10-31-2008 End: 10-31-2008 Renetta Angulo DO Work Phone: [facility] Start: 07-29-2008 End: 07-29-2008 Office outpatient visit 15 minutes Renetta Angulo [facility] Start: 07-02-2008 End: 07-02-2008 Office outpatient visit 15 minutes Renetta Angluo [facility] Start: 05-10-2008 End: 05-10-2008 Office outpatient visit 15 minutes Renetta Angulo [facility] Start: 03-28-2008 End: 03-28-2008 Patient encounter Renetta Angulo [facility] Start: 03-28-2008 End: 03-28-2008 Renetta Angulo DO Work Phone: [facility] Start: 05-16-2007 End: 05-16-2007 Office outpatient visit 15 minutes Renetta Angulo [facility] Start: 04-24-2007 End: 04-24-2007 Patient encounter Renetta Angulo [facility] Start: 04-24-2007 End: 04-24-2007 Renetta Angulo DO Work Phone: [facility] Start: 06-27-2006 End: 06-27-2006 Patient encounter Renetta Angulo [facility] Start: 06-27-2006 End: 06-27-2006 Renetta Angulo DO Work Phone: [facility] Start: 06-22-2006 End: 06-22-2006 Historical Summary Renetta Angulo [facility] Start: 06-22-2006 End: 06-22-2006 Renetta Angulo DO Work Phone: [facility] Start: 01-18-2006 End: 01-18-2006 Patient encounter Renetta Angulo [facility] Start: 01-18-2006 End: 01-18-2006 Renetta Angulo DO Work Phone: [facility] Start: 01-15-2006 End: 01-15-2006 Historical Summary Renetta Angulo [facility] Start: 01-15-2006 End: 01-15-2006 Renetta Angulo DO Work Phone: [facility] Patient encounter status Ingrid Sandoval MA [facility] Work Phone: Patient encounter status Juan R [facility]; [facility] Work Phone: Patient encounter status Juan R [facility]rozco [facility]; [facility] Work Phone: Patient encounter status Kevin Olea HOT BOX OPERATOR [facility]; [facility] Work Phone: End: 10-18-2013 Physical examination Claudia Duran [facility]; [facility] Work Phone: Procedures Date Procedure Procedure Detail Performing Clinician Start: 12-14-2022 Radiologic exam chest 2 views Parrish Azevedo APRN.FIRE PROTECTION INSPECTOR Work Phone: Start: 10-13-2022 US urinary tract Start: 10-13-2022 End: 10-13-2022 Procedure Note: See Note; NOTES: [facility] Imaging Services [address] [place] [address] Kidney and Bladder MR#: [id number] Acct: [id number] Name: LYNDSAY GOSS Rep #: [id number] : 1965 F 57 From: Kassi Brooks PCP: Dr. Renetta Angulo, DO Status: REG CLI Study: Kidney and Bladder Date of Exam: 10/13/22 Exam# [id number] Ordering Dr: Demetrius Anderson MD INDICATION: CKD, STAGE 3A EXAMINATION: Ultrasound US Kidney(s) complete (eg, kidneys and bladder) TECHNIQUE: Pal scale and color doppler images were obtained of the kidneys. COMPARISON: Renal ultrasound 04/29/2015 FINDINGS: RIGHT KIDNEY: 11.2 cm length. There is no hydronephrosis. Heterogeneous with increased cortical echogenicity. LEFT KIDNEY: 12.2 cm length. There is no hydronephrosis. No shadowing calculus, focal lesion or perinephric collection is demonstrated. URINARY BLADDER: Mildly distended. Volume 47 mL. Small nodule adjacent to the spleen likely a splenule. US/Kidney and Bladder IMPRESSION: No hydronephrosis. Right kidney with increased cortical echogenicity consistent with medical renal disease. Similar to prior study. Electronically Signed: Kassi English MD at 23:27 EDT , CC: Dr. Demetrius Anderson MD; Dr. Renetta Angulo DO Backup Engineer: Signed Renetta Angulo DO Work Phone: Start: 09-22-2022 Screening mammography Start: 09-22-2022 End: 09-22-2022 Procedure Note: See Note; NOTES: [facility] Imaging Services [address] [place] [address] SCRN MAMM (CAD)W/ELIJAH BILAT MR#: [id number] Acct: [id number] Name: LYNDSAY GOSS Rep #: [id number] : 1965 F 57 From: Antonio strong MD PCP: Dr. Renetta Angulo DO Status: REG CLI Study: SCRN MAMM (CAD)W/ELIJAH BILAT Date of Exam: 09/09 08/01 Exam# [id number] Ordering Dr: Renetta Angulo DO MAMMOGRAPHY - BILATERAL SCREENING REASON FOR EXAM: Female, 57 years old. Routine annual screening examination. PERTINENT HISTORY: Non-contributory. TECHNIQUE: Digital bilateral breast elijah (3D mammographic acquisition) in the CC and MLO projections. 2-D mediolateral oblique (MLO) and craniocaudad (CC) views of both breasts were obtained. CAD: Full Field Digital Mammography with Computer Added Detection was performed. COMPARISON: Comparison is made with prior study dated 07/04/2020 and April 23, 2019. FINDINGS: Breast Composition: The breasts are extremely dense, which lowers the sensitivity of mammography. There are no dominant masses or suspicious calcifications. No other significant abnormalities are identified. There has been no significant change since the prior study. BI/SCRN MAMM (CAD)W/ELIJAH BILAT IMPRESSION: Stable bilateral screening mammogram. Yearly follow-up mammogram recommended. (A) ASSESSMENT CATEGORY: BIRADS Category 1: Negative. A letter regarding these results will be sent to the patient by the facility within 30 days. Approximately 10% of breast cancers are not detected by mammography. A normal mammogram should not delay biopsy of a clinically suspicious abnormality. [id number] Electronically Signed: Antonio Zaidi MD at 15:32 EDT Reading Location ID and State: [facility] / [place] , Service support , CC: Dr. Renetta Angulo DO Backup Engineer: Signed Renetta Angulo DO Work Phone: Start: 11-11-2021 End: 11-11-2021 Procedure Note: See Note; NOTES: [facility] Physical [facility] [address] [place] [address]. [address] [place] [address] / REHABILITATION SERVICES DISCHARGE SUMMARY MR#: [id number] Acct: [id number] Name: LYNDSAY GOSS Rep #: [id number] : 1965 56 From: Leila Romero DPT Referring Dr.: VIRAJ Landaverde Status: REG RCR Insurance: [facility] It has been my pleasure to treat LYNDSAY GOSS referred by VIRAJ Joseph, with the diagnosis of Right Shoulder Impingment for a total of 14 visit(s). Discharge Date: Please see the following information for a summary of their discharge status. Subjective: Patient reports the shoulder is a little better- no sharp/shooting pains- she has more ROM and less pain overall. The pain is always there achy- but its not as painful. She feels that going back to school she would like to try exercise on her own. RUE Pain Intensity (Out of 10): 1 % Improvement: 70 Objective/Function: Posture: FH, RS- does guard her right UE. Gait: no deviation noted- good arm swing and trunk rotation. Palpation: tender along infraspinatus, upper trap from the occiput to the tip of the acromion. ROM: Flexion: 140 degrees Abd:150 degrees, IR: pocket, ER: 50 degrees. Strength: Sheriff Deputy: Right: 40lbs Left: 50lbs Shoulder: Extn: 18 lbs Flexion: 23 lbs Abd: 8lbs Add: 22 lbs IR: 20 lbs ER: 12 , Flexion: 4+/5 Sheriff Deputy: 40 Goal 1:: Patient will be I with HEP and progression Goal Progress: Progressing Goal 2:: Patient will maintain proper posture t/o to demo increased scapular s/s Goal Progress: Not Progressing Goal 3:: Patient will demo full AROM Goal Progress: Not Progressing Goal 4:: Patient will report 80% improvement Goal Progress: Not Progressing Plan: 11/11/21: Discharge to I home exercise program. Encouraged to call if question. If there are questions or concerns regarding this patient's physical therapy, please feel free to call me at [phone]. Thank you for the referral of this patient. Sincerely, Leila Romero, DPT Balance/Gait/Functional tests - Balance/Special Test Scores Quick DASH Score: 22.7250 <Electronically signed by Leila Romero DPT> 11/11/21 1118 CC: VIRAJ Landaverde; Dr. Renetta Angulo, DO ELR Signed Renetta Angulo DO Work Phone: Start: 10-21-2021 End: 10-21-2021 Procedure Note: See Note; NOTES: [facility] Physical Therapy [facility] [address] [place] [address]. [address] [place] [address] / REEVALUATION / MEDICARE RECERTIFICATION PHYSICAL THERAPY MR#: [id number] Acct: [id number] Name: LYNDSAY GOSS Rep #: [id number] : 1965 56 From: Leila Romero DPT Referring Dr.: VIRAJ Landaverde Status:REG RCR Insurance: [employer] [employer] VIRAJ Joseph, It has been my pleasure to treat LYNDSAY GOSS over the last 9 visits for Right Shoulder Impingment. Please see the progress note below for an update on the physical therapy plan of care! Subjective: Patient reports that she had an MRI which was negative and she had a cortisone injection (2 weeks)- she has more movement and less pain but not gone. 20% to normal. Has not been doing exercises at home- but does move it in the pool. Pain is located in the top of the shoulder and radiates down to the anterior deltoid. Objective/Function: Posture: FH, RS- does guard her right UE. Gait: no deviation noted- good arm swing and trunk rotation. Palpation: tender along infraspinatus, upper trap from the occiput to the tip of the acromion. ROM: Flexion: 125 degrees Abd:100 degrees, IR: pocket, ER: 40 degrees. Strength: Sheriff Deputy: Right: 40lbs Left: 50lbs Shoulder: Extn: 17 lbs Flexion: 16 lbs Abd: 4lbs Add: 20 lbs IR: 13 lbs ER: 9 , Flexion: 4+/5 Sheriff Deputy: 40 Plan Plan: 10/21/21: 2x a week for 4 weeks to continue towards original goals- no tears on MRI. 09/02/21: Discharge to [facility] and return to [place] for further evaluation. Impingement of the right shoulder- Focus on scapular strength/stabilization- modality of US and TENS as needed for pain mgmt and inflammation ,add manual therapy Balance/Gait/Functional tests - Balance/Special Test Scores Quick DASH Score: 27.2725 Goals Goal 1:: Patient will be I with HEP and progression Goal Time Frame: 4-6 Weeks Goal Progress: Progressing Goal 2:: Patient will maintain proper posture t/o to demo increased scapular s/s Goal Time Frame: 4-6 Weeks Goal Progress: Not Progressing Goal 3:: Patient will demo full AROM Goal Time Frame: 4-6 Weeks Goal Progress: Not Progressing Goal 4:: Patient will report 80% improvement Goal Time Frame: 4-6 Weeks Goal Progress: Not Progressing Anticipated Interventions Patient/Client Instruction: Educate patient on: Benefits of Fitness Program Therapeutic Exercise to Include: Strength training, Endurance training, Coordination, Agility training, Body mechanics, Postural training, Flexibilty training, Gait and locomotor training, Neuromotor development, Passive ROM, Active ROM, Dynamic Lumbar Stabilization, Scapular Strength/Stabilization For the Purpose of:: To improve muscle performance and motor function TENS: Yes Cryotherapy (ice pack, ice massage): Yes Thermo therapy (hot pack): Yes Ultrasound (thermal/non thermal): Yes Please do not hesitate to contact me at [phone] by phone or if you have questions or concerns regarding this new plan of care! Sincerely, Leila Romero DPT <Electronically signed by Leila Romero DPT> 10/21/21 1115 CC: VIRAJ Landaverde; Dr. Renetta Angulo DO ELR Signed For Medicare only, by signing this I certify the plan of care. _ Physicians Signature Date Renetta Angulo DO Work Phone: Start: 10-07-2021 End: 10-07-2021 Procedure Note: See Note; NOTES: [facility] [address] [place] [address] OFFICE VISIT Date of Service: 10/07/21 MR#: [id number] Acct: [id number] Name: LYNDSAY GOSS Rep #: [id number] : 1965 Provider: Dr. Joe duong DO Age/Sex: 56/F Location: [facility] Status: Signed Intake Vital Signs 10/07/21 11:13 Height 5 ft 4 in Weight: 204 lb BMI 35.0 Intake Visit Reasons: RIGHT SHOULDER Database Coordinator Required: No Accompanied by: Self Is patient in pain?: Yes Pain scale (1-10): 3 Allergies acetaminophen [From Tylenol] Allergy (Verified 10/07/21 11:14) Rash cefadroxil hydrate [From Duricef] Allergy (Verified 10/07/21 11:14) Unknown Penicillins Allergy (Verified 10/07/21 11:14) Hives rofecoxib [From Vioxx] Allergy (Verified 10/07/21 11:14) Other zolpidem tartrate [From Ambien] Allergy (Verified 10/07/21 11:14) Swelling meperidine HCl [From Demerol] Adverse Reaction (Verified 10/07/21 11:14) Nausea Medications atenolol 25 mg tablet 25 mg PO DAILY 06/19/14 [History Confirmed 10/07/21] fluticasone propionate 50 mcg/actuation nasal spray,suspension 2 spray NASAL DAILY 06/19/14 [History Confirmed 10/07/21] lisinopril 20 mg tablet 20 mg PO DAILY 01/25/19 [History Confirmed 10/07/21] acyclovir 400 mg tablet PO 12/04/19 [History Confirmed 10/07/21] mirabegron 50 mg tablet,extended release 24 hr tablet PO 03/26/21 [History Confirmed 10/07/21] levomilnacipran 40 mg capsule,24 hr,extended release (Fetzima) 80 mg PO DAILY 10/07/21 [History Confirmed 10/07/21] [facility] Medical History HTN (hypertension) Surgical History History of bunionectomy of both great toes History of carpal tunnel surgery of right wrist History of tonsillectomy Hx of cholecystectomy Social History Smoking Status: Former smoker HPI RIGHT SHOULDER Details: Parts of this documentation were recorded by a scribe, this documentation accurately reflects the service provided and the decisions made by me, Dr. Joe Sharma, DO 10/07/21 0802. LYNDSAY GOSS is a 56 year old F here today for follow-up on her right shoulder, she is new to me but previously seen by this office and had an injection 07/20/2021. SHe has been having the shoulder pain since 04/2021. Patient states in July of this year she fell on ice and landed on her right forearm which may have yunior the shoulser. Patient has completed physical therapy without any relief. On her last visit in July with VIRAJ Jenkins she received a cortisone injection into the right subacromial space without any relief as well. She denies applying ice to her shoulder. Patient says it doesn't seem to do anything. She take Advil as needed for pain relief. She rates her pain a 3/10 with resting. Ortho Exam General General: Yes no acute distress Neurologic: Yes alert and Yes oriented x3 Psychologic: Yes reasonable and appropriate Right Shoulder Skin/Wound: No ecchymosis, No erythema and No swelling Testing: Positive Hawkin's and belly press normal; Negative TTP Biceps, TTP AC Joint, Drop Arm, empty can or Load and Shift SHOULDER: TTP over lateral acromion no ac joint tenderness positive neers positive Patterson 95 active forward elevation 110 passive forward elevation external rotation 40 on right vs 80 left internal rotation 5 good resisted abduction strength Office Procedures Ortho Injections Injections Yes Glenohumeral Injection Right Details: Obtained consent for injection. Under sterile conditions, injected the patient's right GH joint with 1.5cc bupivacaine, 1.5cc lidocaine and 1.5cc Kenalog. The patient tolerated the injection well without any noted complication. Patient should call our office if redness develops, pain worsens or if they have any concerns. Office Meds Lester Performing Provider: Joe Sharma DO Administered by: Joe Sharma DO on 10/07/21 11:57 Dose Route Admin Location Lot Number Expiration Date [facility] Manufactu rer 60 mg intra-articular right GH joint injection [id number] 08/09/22 8016-1175-13 [facility] Supplemental Info 10/03/2021 MRI right shoulder:1. No rotator cuff or labral tearing. 2. Moderate hypertrophic degenerative changes of the acromioclavicular joint with mild mass effect on the underlying soft tissues. Educated that her MRI does not show any signs of rotator cuff tearing or significant burisits, there is some AC joint arthritis however that is not causing her significant shoulder stiffness, although not seen on MRI she is developed an adhesive capsulitis with significant stiffness compaired to her contralateral shoulder. her pain is not over her AC joint either. Recommended a GH joint injection of the right shoulder along with additional PT and a Dynasplint. This adhesive capsulitis can occur after a minor truama trauma. She wishes to proceed with GH joint injection today along with additional PT and we will also try to order a dynasplint from the insurance for forward flexion initially. Follow up in 6 weeks or sooner if pain, swelling, numbness or associated symptoms, or concerns develop. All questions answered. Patient in agreement of plan. Coding Level of Care Code Off vis,est,level 3 Diagnoses Adhesive capsulitis of right shoulder M75.01 CPT Codes clinical lab assistant.gh ([id number]) Assessment and Plan Assessment and Plan (1) Adhesive capsulitis of right shoulder: Status: Acute Orders: Orders Ortho Injections Today M75.01 - Adhesive capsulitis of right shoulder 10/07/21 1311 <Electronically signed by Joe Sharma DO> Date Joe Sharma DO Cosigner Signature: Date (if applicable) CC: Renetta Angulo DO Work Phone: Start: 10-03-2021 MRI of joint of lower extremity Dr. Renetta Angulo Work Phone: Start: 10-03-2021 End: 10-03-2021 Procedure Note: See Note; NOTES: [facility] Imaging Services [address] [place] [address] Upper Ext Joint Only(Routine) MR#: [id number] Acct: [id number] Name: LYNDSAY GOSS Rep #: [id number] : 1965 F 56 From: Doc Erazo MD PCP: Dr. Renetta Angulo, Status: REG CLI Study: Upper Ext Joint Only(Routine) Date of Exam: 0 10/03/21 Exam# [id number] Ordering Dr: Javier Landaverde EXAM: MR RIGHT UPPER EXTREMITY WITHOUT INTRAVENOUS CONTRAST, SHOULDER CLINICAL INDICATION: right shoulder pain -- continued pain despite conservative treatments TECHNIQUE: Multiplanar and multisequence MR images of the right shoulder without intravenous contrast. This report was created using [employer] report generation technology. COMPARISON: None. FINDINGS: TENDONS: SUPRASPINATUS: Unremarkable. Intact. INFRASPINATUS: Unremarkable. Intact. SUBSCAPULARIS: Unremarkable. Intact. TERES MINOR: Unremarkable. Intact. BICEPS BRACHII, LONG HEAD: Long head of biceps tendon and labral structures are intact. The extra-articular biceps tendon is in the bicipital groove. LIGAMENTS: GLENOHUMERAL: Unremarkable. Intact. MUSCLES: Muscles are unremarkable. No rotator cuff muscle atrophy. FLUID: Unremarkable. No joint effusion. No subacromial-subdeltoid space bursal fluid. CARTILAGE: No focal chondral defects or significant arthritic changes involving the glenohumeral joint. GLENOID LABRUM: Unremarkable. Intact, limited evaluation on non-arthrographic exam. BONES/JOINTS: Moderate hypertrophic degenerative changes of the acromioclavicular joint with small amount of AC joint fluid noted. Rotator cuff is intact. Physiologic amounts of glenohumeral joint fluid identified. Type II acromion with curved undersurface. No os acromiale. OTHER SOFT TISSUES: Unremarkable. No rotator interval edema. OTHER FINDINGS: No concerning marrow signal alterations. Neurovascular structures are unremarkable. MRI/Upper Ext Joint Only(Routine) IMPRESSION: 1. No rotator cuff or labral tearing. 2. Moderate hypertrophic degenerative changes of the acromioclavicular joint with mild mass effect on the underlying soft tissues. Electronically Signed: Doc Erazo MD at 11:40 EDT , CC: VIRAJ Landaverde; Dr. Renetta Angulo DO Backup Engineer: Signed Renetta Angulo DO Work Phone: Start: 09-02-2021 End: 09-02-2021 Procedure Note: See Note; NOTES: [facility] [address] [place] [address] [address] [place] [address] / REHABILITATION SERVICES DISCHARGE SUMMARY MR#: [id number] Acct: [id number] Name: LYNDSAY GOSS Rep #: [id number] : 1965 56 From: Leila Romero DPT Referring Dr.: VIRAJ Landaverde Status: REG RCR Insurance: [employer] [facility] It has been my pleasure to treat LYNDSAY GOSS referred by VIRAJ Joseph, with the diagnosis of Right Shoulder Impingment for a total of 8 visit(s). Discharge Date: Please see the following information for a summary of their discharge status. Subjective: Patient reports that she is still having a lot of shoulder pain- thinks like closing a zip lock baggie, washing her hands etc. She has been doing all of his stuff at home and its just not better. Goes back Wed to [place] RUE Pain Intensity (Out of 10): 3 % Improvement: 0 Objective/Function: Posture: Fh, RS- does guard her right UE. Gait: no deviation noted- good arm swing and trunk rotation. Palpation: tender along infraspinatus, upper trap from the occiput to the tip of the acromion. ROM: Flexion/Abd: WFL pain from 90 degrees to 130 degrees, IR: greater troch, ER: 50 degrees. Strength: Sheriff Deputy: Right: 40lbs Left: 50lbs Shoulder: Extn: 16.9 lbs Flexion: 16.3 lbs Abd: 8lbs Add: 25 lbs IR: 11 lbs ER: 13 , Flexion: 4+/5 Sheriff Deputy: 50 Goal 1:: Patient will be I with HEP and progression Goal Progress: Progressing Goal 2:: Patient will maintain proper posture t/o to demo increased scapular s/s Goal Progress: Not Progressing Goal 3:: Patient will demo full AROM Goal Progress: Not Progressing Goal 4:: Patient will report 80% improvement Goal Progress: Not Progressing Plan: 09/02/21: Discharge to [facility] and return to [place] for further evaluation. Impingement of the right shoulder- Focus on scapular strength/stabilization- modality of US and TENS as needed for pain mgmt and inflammation ,add manual therapy If there are questions or concerns regarding this patient's physical therapy, please feel free to call me at [phone]. Thank you for the referral of this patient. Sincerely, Leila Romero DPT Balance/Gait/Functional tests - Balance/Special Test Scores Quick DASH Score: 27.2725 <Electronically signed by Leila Romero DPT> 09/02/21 1552 CC: VIRAJ Landaverde; Dr. Renetta Angulo, DO ELR Signed Renetta Angulo DO Work Phone: Start: 07-31-2021 End: 07-31-2021 Procedure Note: See Note; NOTES: [facility] [place] [address] / REHABILITATION SERVICES INITIAL EVALUATION MR#: [id number] Acct: [id number] Name: LYNDSAY GOSS Rep #: [id number] : 1965 56 From: Leila Romero DPT Referring Dr.: VIRAJ Landaverde Status: REG RCR Insurance: [employer] [facility] Patient's Visit Information LYNDSAY GOSS is a 56 year old F referred to Physical Therapy by VIRAJ Joseph with a diagnosis of Right Shoulder Impingment. Date of Evaluation: 07/31/21 Physical Therapist: Leila Romero DPT - Visit Plan Frequency: 2x /Week Duration: 4 Weeks Plan: Impingement of the right shoulder- Focus on scapular strength/stabilization- modality of US and TENS as needed for pain mgmt and inflammation. HEP Given IE: Postural education, scapular retractions, upper trap stretch, levator stretch - Subjective Patient reports that her right shoulder pain- has been going on since April- About 3 weeks ago she fell on the ice and she jammed the shoulder. Had a cortisone injection over spring but it did not help at all. The pain is a constant ache. Right in the shoulder joint-does radiate to the anterior shoulder. Worst: 6/10 Agg: moving it backwards, pulling up pants in the back. Best: 0/10 Eases: resting it in close to her body. No finger dexterity or hand tool filer strength- no N/T. Right hand dominate. Does have some cervical pain along the upper trap- but no GONZALEZ, blurred vision or dizziness. Sleep: disturbed- hard to sleep on that side- side sleeper. Work: [employer]- sitting on her computer a lot. PMHx/Meds: in chart from ortho - Objective Posture: Fh, RS- does guard her right UE. Gait: no deviation noted- good arm swing and trunk rotation. Palpation: tender along infraspinatus, upper trap from the occiput to the tip of the acromion. ROM: Flexion/Abd: WFL pain from 90 degrees to 180 degrees, IR: greater troch, ER: 50 degrees. Strength: Sheriff Deputy: Right: 40lbs Left: 50lbs Shoulder: Extn: 20 lbs Flexion: 18.4 lbs Abd: 8lbs Add: 22 lbs IR: 17lbs ER: 12.5, Flexion: 4+/5 Sheriff Deputy: 50 - Special Tests R Shoulder Drop Sign - IS Test: Positive R Shoulder Empty Can - SS: Positive R Shoulder Belly Press - SupScap: Positive R Shoulder Neer - Impingement: Positive R Shoulder Patterson Vazquez - Impingement: Positive - Balance/Special Test Scores Quick DASH Score: 31.8175 - Goals Goal 1:: Patient will be I with HEP and progression Goal Time Frame: 4-6 Weeks Goal 2:: Patient will maintain proper posture t/o to demo increased scapular s/s Goal Time Frame: 4-6 Weeks Goal 3:: Patient will demo full AROM Goal Time Frame: 4-6 Weeks Goal 4:: Patient will report 80% improvement Goal Time Frame: 4-6 Weeks - Rehabilitation Potential Physical Therapy Diagnosis: Patient presents with hypomobility- she has decreased UE and scapular s/s, Shoulder pain free ROM and muscular endurance leading to poor posture and increased pain with ADL's. Rehabilitation Potential: Good - Anticipated Interventions Patient/Client Instruction: Educate patient on: Benefits of Fitness Program Therapeutic Exercise to Include: Strength training, Endurance training, Coordination, Agility training, Body mechanics, Postural training, Flexibilty training, Gait and locomotor training, Neuromotor development, Passive ROM, Active ROM, Dynamic Lumbar Stabilization, Scapular Strength/Stabilization For the Purpose of:: To improve muscle performance and motor function TENS: Yes Cryotherapy (ice pack, ice massage): Yes Thermo therapy (hot pack): Yes Ultrasound (thermal/non thermal): Yes Thank you for the opportunity to evaluate your patient. For Medicare and Medicare HMO plans, please review the plan of care and approve it. It will need to be FAXED BACK to us at [phone] for Medicare purposes. For Medicare only, by signing this I certify the plan of care. Please let me know if there are questions or concerns regarding this plan of care. Physician Signature: Date: <Electronically signed by Leila Romero DPT> 07/31/21 1058 CC: VIRAJ Landaverde; Dr. Renetta Angulo DO ELR Signed Renetta Angulo DO Work Phone: Start: 07-20-2021 Plain X-ray of shoulder Dr. Renetta Angulo Work Phone: Start: 07-20-2021 End: 07-20-2021 Procedure Note: See Note; NOTES: [facility] [address] [place] [address] Shoulder min 2 Views MR#: [id number] Acct: [id number] Name: LYNDSAY GOSS Rep #: [id number] : 1965 F 56 From: Rogers Brooks PCP: Dr. Renetta Angulo, Status: DEP AMB Study: Shoulder min 2 Views Date of Exam: 07/20/21 Exam# [id number] Ordering Dr: Javier Landaverde STUDY: XR Shoulder Min 2 Views REASON FOR EXAM: Female, 56 years old. PAIN TECHNIQUE: XR Shoulder Min 2 Views RIGHT COMPARISON: None. FINDINGS: Normal glenohumeral articulation. Normal acromioclavicular joint. Normal acromion. Normal humeral head and visualized proximal humerus. The soft tissue structures are unremarkable. Normal visualized pulmonary apex. RAD/Shoulder min 2 Views IMPRESSION: There are no acute findings of the shoulder. Electronically Signed: Rogers Ward MD at 18:40 EDT Reading Location ID and State: [facility] / [place] , Service support , CC: VIRAJ Landaverde; Dr. Renetta Angulo DO Backup Engineer: Signed Renetta Angulo DO Work Phone: Start: 07-20-2021 End: 07-20-2021 Procedure Note: See Note; NOTES: [facility] Sports Medicine [address] [place] [address] OFFICE VISIT Date of Service: 07/20/21 MR#: [id number] Acct: [id number] Name: LYNDSAY GOSS Dylan Rep #: [id number] : 1965 Provider: VIRAJ Landaverde Age/Sex: 56/F Location[place] [facility] [place] Status: Signed Intake Intake Visit Reasons: RIGHT SHOULDER Allergies acetaminophen [From Tylenol] Allergy (Verified 07/20/21 13:02) Rash cefadroxil hydrate [From Duricef] Allergy (Verified 07/20/21 13:02) Unknown Penicillins Allergy (Verified 07/20/21 13:02) Hives rofecoxib [From Vioxx] Allergy (Verified 07/20/21 13:02) Other zolpidem tartrate [From Ambien] Allergy (Verified 07/20/21 13:02) Swelling meperidine HCl [From Demerol] Adverse Reaction (Verified 07/20/21 13:02) Nausea Medications atenolol 25 mg PO DAILY 06/19/14 [History Confirmed 07/20/21] fluticasone propionate 2 spray NASAL DAILY 06/19/14 [History Confirmed 07/20/21] lisinopril 20 mg tablet 20 mg PO DAILY 01/25/19 [History Confirmed 07/20/21] acyclovir 400 mg tablet PO 12/04/19 [History Confirmed 07/20/21] escitalopram oxalate 20 mg tablet mg PO 12/04/19 [History Confirmed 07/20/21] brexpiprazole 1 mg tablet tablet PO 03/26/21 [History Confirmed 07/20/21] mirabegron 50 mg tablet,extended release 24 hr tablet PO 03/26/21 [History Confirmed 07/20/21] nitroglycerin 0.2 mg/hr transdermal 24 hour patch See Rx Instructions TRANSDERMAL DAILY #30 ea 03/26/21 [Rx Confirmed 07/20/21] PFSH Medical History HTN (hypertension) Surgical History History of bunionectomy of both great toes History of carpal tunnel surgery of right wrist History of tonsillectomy Hx of cholecystectomy Social History Smoking Status: Former smoker HPI RIGHT SHOULDER Details: Parts of this documentation were recorded by a scribe, this documentation accurately reflects the service provided and the decisions made by me, VIRAJ Joseph 07/20/21 3834. LYNDSAY GOSS is a 56 year old F here today for right shoulder pain. Pt states pain started in April. Pt states she fell on ice and landed on her forearm. Pt states she has limited ROM. Pt states she has increased pain at night time while trying to lay down. Pt describes pain as ache with sharp pains. Pt states most of pain is anterior and lateral. Pt denies any PT, injections, or surgeries. Pt wishes to have an injection today. Pt denies numbness or tingling. Pt states she has pain that radiates down her right arm not quite to her elbow. Pt also states she ices her shoulder and takes Ibuprofen once daily which doesn't help with the pain. Ortho Exam General General: Yes no acute distress Neurologic: Yes alert and Yes oriented x3 Psychologic: Yes reasonable and appropriate Right Shoulder Skin/Wound: No ecchymosis, No erythema and No swelling Testing: Positive Hawkin's, Neer's and empty can; Negative Speed's, TTP Biceps, TTP AC Joint, AROM-Forward Elevation 0-180, AROM-External Rotation at 90 0-60, Apprehension Test, Sulcus Sign, translation, cross arm, lift off or belly press normal Internal Rotation: Buttock SHOULDER: No acute abnormalities on inspection of the right shoulder. No localized generalized swelling today. No ecchymosis/bruising, erythema, or other skin changes. Patient does lack a little bit of forward elevation approximately 10 degrees compared to the left side. Initially patient can get approximately 95 degrees of abduction but then when she gets past a point she can actually go to approximately 160-170 degrees. Passively I can abduct to approximately 170-175 degrees. She does have some discomfort at full/terminal abduction. Patient has evident impingement signs today. No obvious evidence of labral or glenohumeral involvement. She does not appear to have major biceps signs as she has a negative speeds test and no anterior/biceps tenderness. No pain of the coracoid. She does have evident decreased internal rotation Office Procedures Ortho Injections Injections Yes Subacromial Injection Right Details: Obtained consent for injection. Under sterile conditions, injected the patients right subacromial with 8cc Bupivacaine and 2cc Kenalog. The patient tolerated the injection well without any noted complication. Patient should call our office if redness develops, pain worsens or if they have any concerns. Office Meds Kenalog Performing Provider: VIRAJ Dai Administered by: Lacie Cuba on 07/20/21 15:24 Dose Route Admin Location Lot Number Expiration Date [facility] Manufactu rer 80 mg intra-articular Right shoulder [id number] 05/12/22 5439-0850-01 [facility] Coding Level of Care Code Attention Breaker Tender Diagnoses Shoulder pain M25.519 Impingement syndrome of right shoulder M75.41 CPT Codes clinical lab assistant.sub () Comment CPT?injection/asp iration into a major joint/bursa. Assessment and Plan Assessment and Plan (1) Shoulder pain: Status: Acute (2) Impingement syndrome of right shoulder: Status: Acute Orders: Orders: Kenalog Injection Today M25.519 Shoulder min 2 Views Today M25.519 Plan - Javier CALI PA: Patient presents the office today with right shoulder pain. Patient states that she has been having pain for a few months now but that she fell approximately 1 week ago onto her elbow and it kind of yunior the shoulder a little more caused the pains to worsen. Since then patient has had pain with range of motion which is also limited her motion. Physical exam today shows evident impingement signs. She does have some weakness with resisted movements compared to the left shoulder. Positive empty can today. She has decreased internal rotation. No obvious signs of glenohumeral arthritis/involvement. At this time we did discuss anatomy physiology as well as impingement versus bursitis versus partial tearing of the rotator cuff. Patient has had multiple surgeries on the left shoulder and states she would like to start conservative with an injection. Risks and benefits of the injection were discussed with patient and consent was signed in office today injection was then given under normal sterile fashion in the subacromial space with patient seated upright and arm resting in her lap. Anterior/posterior approach used to live with contents of the syringe without resistance. Patient tolerated procedure with minimal discomfort. No complications observed. Patient should ice and take an anti-inflammatory for the next few days. Monitor notify of any erythema, warmth, increased pain, swelling, or any other signs or symptoms. Patient was also given a prescription for physical therapy that I would like her to begin especially while the injection is working. Return to the office following therapy in 2 to 3 months or sooner if she has no improvement or worsening signs or symptoms. This note was generated with [employer] dictation software. It may contain incorrect words, spelling, and punctuation that were not noted in checking the note before signing. 07/20/21 3371 <Electronically signed by Javier CALI> Date Javier CALI Cosigner Signature: Date (if applicable) CC: Renetta Julissa DO Work Phone: Start: 04-29-2021 End: 04-30-2021 Comments: See Note; NOTES: [facility] [facility] [address] [place] [address] OFFICE VISIT Date of Service: 04/29/21 MR#: [id number] Acct: [id number] Name: LYNDSAY GOSS Rep #: [id number] : 1965 Provider: VIRAJ Landaverde Age/Sex: 55/F Location: [facility] Status: Signed Intake Intake Visit Reasons: RIGHT ELBOW Is patient in pain?: Yes Allergies acetaminophen [From Tylenol] Allergy (Verified 04/29/21 15:27) Rash cefadroxil hydrate [From Duricef] Allergy (Verified 04/29/21 15:27) Unknown Penicillins Allergy (Verified 04/29/21 15:27) Hives rofecoxib [From Vioxx] Allergy (Verified 04/29/21 15:27) Other zolpidem tartrate [From Ambien] Allergy (Verified 04/29/21 15:27) Swelling meperidine HCl [From Demerol] Adverse Reaction (Verified 04/29/21 15:27) Nausea Medications atenolol 25 mg PO DAILY 06/19/14 [History Confirmed 04/29/21] fluticasone propionate 2 spray NASAL DAILY 06/19/14 [History Confirmed 04/29/21] lisinopril 20 mg tablet 20 mg PO DAILY 01/25/19 [History Confirmed 04/29/21] acyclovir 400 mg tablet PO 12/04/19 [History Confirmed 04/29/21] escitalopram oxalate 20 mg tablet mg PO 12/04/19 [History Confirmed 04/29/21] brexpiprazole 1 mg tablet tablet PO 03/26/21 [History Confirmed 04/29/21] mirabegron 50 mg tablet,extended release 24 hr tablet PO 03/26/21 [History Confirmed 04/29/21] nitroglycerin 0.2 mg/hr transdermal 24 hour patch See Rx Instructions TRANSDERMAL DAILY #30 ea 03/26/21 [Rx Confirmed 04/29/21] PFSH Medical History (Updated 03/26/21 @ 08:42 by Tamra Galarza) HTN (hypertension) Surgical History (Updated 03/26/21 @ 08:42 by Tamra Galarza) History of bunionectomy of both great toes History of carpal tunnel surgery of right wrist History of tonsillectomy Hx of cholecystectomy Social History (Updated 12/13/19 @ 11:[address] Lyndsay Parry, DO) Smoking Status: Former smoker HPI RIGHT ELBOW Details: Parts of this documentation were recorded by a scribe, this documentation accurately reflects the service provided and the decisions made by me, VIRAJ Joseph 04/29/21 1520. LYNDSAY GOSS is a 55 year old F here today for a followup on her right elbow MRI. She states that her pain is better but she continues to have lateral elbow pain. She has difficulty fully extending her elbow and pain with lifting up a cup to drink. She feels like the nitro patches were helpful. Her MRI is here for review. Ortho Exam Right Elbow Skin/Wound: No erythema and No Swelling ROM: Yes Flexion 0-140, Extension 0, Supination 0-90 and Pronation 0-80 Test: No TTP Medial Epicondyle, Yes TTP Lateral Epicondyle, Yes Pain w/ resist wrist ext, Yes Pain w/ resist pronation, Yes Pain w/ resist 3rd dig ext and No Tinel's Sensation: Radial: I, Ulnar: I and Median: I ELBOW: No acute abnormalities on inspection of the right elbow. There is no localized or generalized swelling and no ecchymosis/bruising, erythema, or other skin changes. Patient does have full range of motion of the elbow at the same time she has a little hesitation with full extension stating it does cause a little discomfort. She can perform full extension fairly easily. She does have good strength against resistance. She continues to have lateral epicondyle pain as well as pain with resisted extension as well as pronation. She has soft compartments throughout the upper extremity and normal distal radial pulses and capillary refill. Coding Level of Care Code Off vis,est,level 3 Diagnoses Right lateral epicondylitis M77.11 Assessment and Plan Assessment and Plan (1) Right lateral epicondylitis: Status: Acute Plan - Javier CALI PA: Patient presents the office today for follow-up of right elbow pain following an MRI of the elbow. Patient states that initially she was not seeing a lot of relief with the nitroglycerin patches at the same time after about 2 weeks she states she started to really see improvement in her pains. She still does have pains but states that they are not as severe or as frequent with the patches. She has not experienced any headaches or other side effects from the patches. She does admit that she has not been doing stretching or other modalities which we stressed the importance today. Continued extensive physical therapy is very important for this sort of injury as the patches alone are not going to be as effective. We did discuss surgical intervention for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 have shooting pains into her mid forearm. Denies numbness, tingling or other associated symptoms. Denies any injury. Has tried massage, aleve/advil which is semi- effective, she also tried ice. ROS Musc Reports joint pain Skin/Breast Reports system reviewed and no additional complaints, except as docu Neuro Yes system reviewed and no additional complaints, except as docu Ortho Exam Right Elbow Skin/Wound: No eccymosis, No erythema, No Swelling ROM: Yes Flexion 0-140, Extension 0, Supination 0-90 and Pronation 0-80 Test: No TTP Medial Epicondyle, Yes TTP Lateral Epicondyle, Yes Pain w/ resist wrist ext Sensation: Radial: I, Ulnar: I, Median: I Office Procedures Kenalog 40 mg/mL suspension for injection (triamcinolone acetonide) 20 mg intra-articular ONCE Injections Yes Lateral Epicondyle Right Details: Obtained consent for injection. Under sterile conditions, injected the patients right lateral epicondyle with a 3cc cocktail of 2cc bupivacaine and 1cc kenalog. The patient tolerated the injection well without any noted complication. Patient should call our office if redness develops, pain worsens or if they have any concerns. Office Meds Lester Performing Provider: Lyndsay Parry DO Administered by: Lyndsay Parry DO on 12/04/19 15:55 Dose Route Admin Location Lot Number Expiration Date NDC Manufactu rer 20 mg intra-articular right lateral epi [id number] 06/09/20 4563-6638-18 [facility] Assessment Plan Problems 1. Right lateral epicondylitis M77.11 Plan Patient educated that she has tennis elbow and since the last lateral epicondyle injections was effective for about 7 months it is recommended that she proceeds with the injection today. Patient wishes to proceed with the injection today. Educated on eccentric exercises along with ice and bracing. Follow up as needed or sooner if pain, swelling, numbness or associated symptoms, or concerns develop. All questions answered. Patient in agreement of plan. Orders Orders: Ortho Injections 12/04/19 M77.11 Coding Level of Care Code No Charge Diagnoses Right lateral epicondylitis M77.11 Additional Codes clinical lab assistant.lat ([id number]) 12/13/19 1123 <Electronically signed by Lyndsay Parry DO> Date Lyndsay Parry DO Cosigner Signature: Date (if applicable) CC: Renetta Angulo Start: 11-26-2019 End: 11-26-2019 Foot 2 Views Comments: See Note; NOTES: [facility] Imaging Services [address] [place] [address] Foot 2 Views MR#: [id number] Acct: [id number] Name: ANA PAULALYNDSAY Dylan Rep #: [id number] : 1965 F 54 From: Guille Bolivar DO PCP: Dr. Renetta Angulo DO Status: REG CLI Study: Foot 2 Views Date of Exam: 11/26/19 Exam# [id number] Ordering Dr: Renetta Angulo DO STUDY: X-RAY - RIGHT FOOT CLINICAL: Female, 54 years old. Pain for years. TECHNIQUE: 2 view(s) of the foot. COMPARISON: None. FINDINGS: There are enthesophytes at the insertions of the Achilles tendon and plantar aponeurosis upon an otherwise normal calcaneus. Normal talus and tarsal bones. Normal visualized subtalar, talonavicular, calcaneocuboid, tarsal and tarsometatarsal articulations. Normal metatarsi. There is degenerative arthrosis of the metatarsophalangeal joint of the hallux . Normal tibial and fibular sesamoid bones. Normal interphalangeal joint of the great toe. Normal phalanges of the great toe. Normal second through fifth metatarsophalangeal joints. Normal interphalangeal joints and phalanges of the lesser toes. The soft tissue structures are unremarkable. RAD/Foot 2 Views IMPRESSION: Mild arthrosis of the right foot. Electronically Signed: Guille Bolivar DO at 23:51 EDT Tel [phone], Service support , CC: Dr. Renetta Angulo DO Backup Engineer: Signed Renetta Angulo Work Phone: Start: 11-26-2019 End: 11-26-2019 Cerv Spine 2 or 3 Views Comments: See Note; NOTES: [facility] Imaging Services [address] [place] [address] Cerv Spine 2 or 3 Views MR#: [id number] Acct: [id number] Name: LYNDSAY GOSS Rep #: [id number] : 1965 F 54 From: Guille Bolivar DO PCP: Dr. Renetta Angulo DO Status: REG CLI Study: Cerv Spine 2 or 3 Views Date of Exam: 11/26/19 Exam# [id number] Ordering Dr: Renetta Angulo DO STUDY: X-RAY - CERVICAL SPINE REASON FOR EXAM: Female, 54 years old. Neck pain for years. TECHNIQUE: 3 view(s) of the cervical spine were obtained. COMPARISON: None FINDINGS: There are degenerative changes of the anterior atlantoaxial articulation. Normal odontoid process. Normal cervical lordosis. Normal vertebral bodies and endplates. Normal disc space heights. There is no evidence of acute fracture or loss of vertebral axial height. There is maintenance of normal alignment. The soft tissue structures are unremarkable. RAD/Cerv Spine 2 or 3 Views IMPRESSION: Degenerative changes of the atlantoaxial articulation. Electronically Signed: Guille Bolivar DO at 23:50 EDT Tel [phone], Service support , CC: Dr. Renetta Angulo DO Backup Engineer: Signed Renetta Angulo Work Phone: Start: 05-23-2019 End: 05-23-2019 OT D/C Summary Comments: See Note; NOTES: [facility] Occupational Therapy [address] [place] [address] / REHABILITATION SERVICES DISCHARGE SUMMARY MR#: [id number] Acct: [id number] Name: ANA PAULALYNDSAY Dylan Rep #: [id number] : 1965 53 From: Noemi Benjamin OTR/L, T Referring DrKaren: Lyndsay Parry DO Status: REG RCR Eval Date: Discharge Date: - OT D/C Summary It has been my pleasure to treat LYNDSAYReyes GOSS under orders from Dr. Lyndsay Parry DO, for the diagnosis of Right hand pillar pain following right for a total of 8 visit(s). Please see the following information for a summary of their discharge status. - Overall Improvement % Improvement: 80 - Objective Objective/Function: Feels 80% improvement wants to continue at home. pt reports she is more ind. with ADLs does not have the pain with use of right hand for ADLS. noted some tenderness but better. right hand tool filer strength 50#. Pt has met goals in OT and is D/C at this time. - Goals Patient Goals: Decrease Pain, Use Hand/Wrist/Arm Normally Again Goal:: PT will demo a increase in right hand tool filer strength by 20# to increase pts IND with ADLs and IADLS by d/c Goal:: pt will report no pain greater than 1/10 with right hand use with ADLs and IADLS by d.c Goal:: pt will demo understanding of scar mtg and desensitization by 3rd visit - Plan Plan: D/C - D/C Information Discharge Comments: pt was seen 8 visitis in OT. Pt met goals in OT and will cont with HEP of scar mtg and desensitization. If there are questions or concerns regarding this patient's occupational therapy, please fell free to call me at [phone]. Thank you for the referral of this patient. Sincerely, Noemi Benjamin OTR/Bernadette, CHT <Electronically signed by Noemi Benjamin OTR/Bernadette, CHT> 05/23/19 0849 CC: Lyndsay Parry DO; Renetta Angulo DO MK Signed Renetta Angulo Start: 04-23-2019 End: 04-23-2019 SCREEN MAMM (CAD) W/ELIJAH BILAT Comments: See Note; NOTES: [facility] Imaging Services [address] [place] [address] SCREEN MAMM (CAD) W/ELIJAH BILAT MR#: [id number] Acct: [id number] Name: ANA PAULALYNDSAY MACDAMS Dylan Rep #: [id number] : 1965 F 53 From: Antonio Zaidi MD PCP: Renetta Angulo DO Status: REG CLI Study: SCREEN MAMM (CAD) W/ELIJAH BILAT Date of Exam: 04/23/19 Exam# [id number] Ordering Dr: Renetta Angulo DO MAMMOGRAPHY - BILATERAL SCREENING REASON FOR EXAM: Female, 53 years old. Routine annual screening examination. PERTINENT HISTORY: Non-contributory. TECHNIQUE: Digital bilateral breast elijah (3D mammographic acquisition) in the CC and MLO projections. 2-D mediolateral oblique (MLO) and craniocaudad (CC) views of both breasts were obtained. CAD: Full Field Digital Mammography with Computer Added Detection was performed. COMPARISON: Comparison is made with prior study dated January 10, 2018. FINDINGS: Breast Composition: The breasts are extremely dense, which lowers the sensitivity of mammography. There are no dominant masses or suspicious calcifications. No other significant abnormalities are identified. There has been no significant change since the prior study. BI/SCREEN MAMM (CAD) W/ELIJAH BILAT IMPRESSION: Stable bilateral screening mammogram. Yearly follow-up mammogram recommended. (A) ASSESSMENT CATEGORY: BIRADS Category 1: Negative. A letter regarding these results will be sent to the patient by the facility within 30 days. Approximately 10% of breast cancers are not detected by mammography. A normal mammogram should not delay biopsy of a clinically suspicious abnormality. [id number] Electronically Signed: Antonio Zaidi, at 15:22 EST , Service support , CC: Renetta Angulo DO Backup Engineer: Signed Renetta Angulo Work Phone: Start: 04-20-2019 End: 04-20-2019 OT General Evaluation Comments: See Note; NOTES: [facility] Occupational [facility] [address] [place] [address]. [address] [place] [address] / REHABILITATION SERVICES INITIAL EVALUATION MR#: [id number] Acct: [id number] Name: LYNDSAY GOSS Rep #: [id number] : 1965 53 From: Noemi CARRANZA/JOSE ELIAS Fleming Referring Dr.: Lyndsay Parry DO Status: REG RCR Insurance: [facility] Date: SELF PAY INSURANCE Patient's Visit Information LYNDSAY GOSS is a 53 year old F, referred to Occupational Therapy by Lyndsay Parry DO, with a diagnosis of Right hand pillar pain following right. Date of Evaluation: 04/19/19 Occupational Therapist: Noemi Benjamin, DILLON/Bernadette, CHT - Subjective Subjective: This 53 year old female was seen for OT eval with dx of pillar pain following a right CTR in 2018. Pt states pain is uncomfortable with ADLs and IADLS. 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 pt would like to decrease pain to return to PLOF. - ADLs Miscellaneous: Write Comments: pushing shopping cart - Pain right hand 3 Pain Intensity Range: 3, 5 - ROM Wrist: right/left WNL ROM Comments: pt demo full composite fist - Strength Sheriff Deputy: right 30# left 75# Lateral Pinch: right 6# left 12# Tripod Pinch: right 8# left 10# - Sensation Sensation Comments: states sensation returned following sx - Quick DASH-Disab of Arm,Shoulder AND Hand Quick DASH Score: 40.0000 - Goals Goal:: PT will demo a increase in right hand tool filer strength by 20# to increase pts IND with ADLs and IADLS by d/c Goal:: pt will report no pain greater than 1/10 with right hand use with ADLs and IADLS by d.c Goal:: pt will demo understanding of scar mtg and desensitization by 3rd visit - Rehabilitation General Assessment: Pt demo with a decrease in right hand tool filer strength and pain limiting pts ind with ADLs and IADLs. Pt would benefit from skilled OT services 2x week for 4 weeks to decrease pain, increase strength to return pt to PLOF. Today therapist ed. pt on scar mtg pt demo understanding and agree to POC. Therapist will work on desensitization and PRE as pt vanesa. Rehabilitation Potential: Good - Anticipated Interventions Anticipated Interventions: A/AAROM/PROM, Strengthening, Scar Care, Desensitization, Sensory Retraining, Modalities - Visit Plan Frequency: 2x /Week Duration: 4 Weeks TEXT: Thank you for the opportunity to evaluate your patient. For Medicare and Medicare HMO plans, please review the plan of care and approve it. It will need to be FAXED BACK to us at [phone] for Medicare purposes. Please let me know if there are questions or concerns regarding this plan of care. Physician Signature: Date: <Electronically signed by Noeim ROSS CHT> 04/20/19 1114 CC: Lyndsay Parry DO; Renetta Angulo DO MK Signed For Medicare only, by signing this I certify the plan of care. _ Physicians Signature Date Renetta Angulo Start: 04-12-2019 End: 04-12-2019 Orthopedic Visit Report Comments: See Note; NOTES: [facility] Orthopaedics AND Sports Medicine [address] [place], [place] [id number] OFFICE VISIT Date of Service: 04/12/19 MR#: [id number] Acct: [id number] Name: LYNDSAY GOSS Rep #: [id number] : 1965 Provider: Lyndsay Parry DO Age/Sex: 53/F Location[place] [facility] [place] Status: Signed Intake Vital Signs04/12/19 BMI 35.6 Intake Visit Reasons: LEFT ANKLE Allergies acetaminophen [From Tylenol] Allergy (Verified 03/21/19 07:01) Rash cefadroxil hydrate [From Duricef] Allergy (Verified 03/21/19 07:01) Unknown Penicillins Allergy (Verified 03/21/19 07:01) Hives rofecoxib [From Vioxx] Allergy (Verified 03/21/19 07:01) Other zolpidem tartrate [From Ambien] Allergy (Verified 03/21/19 07:01) Swelling meperidine HCl [From Demerol] Adverse Reaction (Verified 03/21/19 07:01) Nausea Medications Atenolol [Tenormin (beta Joselin)] 25 mg PO DAILY 06/19/14 [History Confirmed 04/12/19] Fluticasone 0.05% [Flonase Nasal [place]] 2 spray NASAL DAILY 06/19/14 [History Confirmed 04/12/19] Valtrex 200 mg PO DAILY 06/19/14 [History Confirmed 04/12/19] duloxetine 30 mg capsule,delayed release 30 mg PO DAILY 01/25/19 [History Confirmed 04/12/19] lisinopril 20 mg tablet 20 mg PO DAILY 01/25/19 [History Confirmed 04/12/19] sertraline 100 mg tablet 100 mg PO DAILY 01/25/19 [History Confirmed 04/12/19] Guanfacine HCl [Intuniv] 2 mg PO QHS 02/16/19 [History Confirmed 04/12/19] Ondansetron [Zofran Odt] 4 mg PO Q8H PRN PRN #10 tab 03/21/19 [Rx Confirmed 04/12/19] Pantoprazole Sodium [Protonix] 40 mg PO DAILY #20 tab 03/21/19 [Rx Confirmed 04/12/19] PFSH Social History (Updated 04/12/19 @ 13:09 by Lyndsay Parry DO) Smoking Status: Former smoker HPI LEFT ANKLE: Details: Parts of this documentation were recorded by a scribe, this documentation accurately reflects the service provided and the decisions made by me, Lyndsay Parry DO 04/12/19 0957. LYNDSAY GOSS is a 53 year old F here today for F/U after having left ankle MRI. Patient states she sprained her ankle last year and has pain off and on for the last year. Denies numbness, tingling or other associated symptoms. Patient states she is having a deep joint pain. denies any recent sprains. Denies any changes in medications. She has been wearing an ankle sleeve off and on over the lasdt year. [facility] Reports joint pain Skin/Breast Reports system reviewed and no additional complaints, except as docu Neuro Yes system reviewed and no additional complaints, except as docu Ortho Exam Left Foot/Ankle Skin: No Soft Tissue Swelling Exam: No Soft tissue swelling Dorsiflexion 0-20: 20 degrees Plantar Flexion 0-40: 40 degrees ROM: No pain with ROM or crepitus with ROM Anterior Drawer: 1 Motor: Ankle Dorsiflextion: 5, Ankle Plantar Flexion: 5, Ankle Eversion: 5, Ankle Inversion: 5, EHL: 5 Sensation: Deep Peroneal Nerve: I, Superficial Peroneal Nerve: I, Tibial Nerve: I, Sural Nerve: I, Saphenous Nerve: I Assessment AND Plan Problems 1. 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 Pillar pain, post-operative G89.18 Plan Personally reviewed the MRI that reads mild posterior tibialis tenosynovitis, small inferior calcaneal spur, mild tibiotalar arthrosis with a small tibiotalar joint effusion but there is also an Os noted when reviewing the images today. Her treatment options are do nothing, PT or a steroid injection into the ankle but patient is not in great pain today. Instructed to continue to do her band exercises for ankle strengthening. If the conservative care fails we can discuss ankle arthroscopy for debridement She is getting pillar pain in the left hand and gave an OT script for treatment. Follow up as needed or sooner if pain, swelling, numbness or associated symptoms, or concerns develop. All questions answered. Patient in agreement of plan. 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 Pillar pain, post-operative G89.18 04/12/19 1309 <Electronically signed by Lyndsay Parry DO> Date Lyndsay Parry DO Cosigner Signature: Date (if applicable) CC: Renetta Angulo Start: 04-10-2019 End: 04-10-2019 12 lead ECG Comments: See Note; NOTES: [facility] Cardiovascular Services [address] [place] [address] 12 Lead EKG 03/21/19 0737 MR#: [id number] Acct: [id number] Name: LYNDSAY GOSS Rep #: [id number] : 1965 53 From: Gumaro Parker MD Attending Dr: Status: DEP ER Ordering Dr: Jaime Lopez MD Date: 03/21/19 Location: ED Sex: F C Admitted: Test Reason : Blood Pressure : / mmHG Vent. Rate : 057 BPM Atrial Rate : 057 BPM P-R Int : 138 ms QRS Dur : 072 ms QT Int : 468 ms P-R-T Axes : 029 -08 010 degrees QTc Int : 455 ms Sinus bradycardia Otherwise normal ECG Confirmed by MONALISA PIERSON, FRANCIS ([id number]), scientific publications editor ANTHONY REECE ([id number]) on 03/28/2019 11:28:57 AM Referred By: KAYLAH Confirmed By:KOBI PARKER MD 03/28/19 1128 Date Gumaro Parker MD CC: Jaime Lopez MD; Renetta Angulo DO Signed Beatriz Maria Work Phone: Start: 04-02-2019 End: 04-02-2019 Lower Ext Joint Only (Routine) Comments: See Note; NOTES: [facility] Imaging Services [address] [place] [address] Lower Ext Joint Only (Routine) MR#: [id number] Acct: [id number] Name: LYNDSAY GOSS Rep #: [id number] : 1965 F 53 From: Juan Ness MD PCP: Renetta Angulo DO Status: REG CLI Study: Lower Ext Joint Only (Routine) Date of Exam: 04/02/19 Exam# [id number] Ordering Dr: Lyndsay Parry DO STUDY: MRI LEFT ANKLE WITHOUT CONTRAST REASON FOR EXAM: Female, 53 years old. Left ankle injury with deep central pain, particularly in the talonavicular region. TECHNIQUE: Standardized fat and water weighted pulse sequences were obtained in all 3 orthogonal planes. COMPARISON: Ankle x-rays dated March 15, 2019. FINDINGS: Normal subcutis adipose space. Mild posterior tibialis tenosynovitis (axial series 3 image 15). Normal flexor digitorum longus tendon. Normal flexor hallucis longus tendon. Normal peroneus longus and brevis tendons. Normal tibialis anterior tendon. Normal extensor hallucis longus tendon. Normal extensor digitorum longus tendons. Normal Achilles tendon and teno-osseous insertion. Normal plantar fascia. Normal plantar calcaneal tubercles. Normal intrinsic muscles of the rearfoot. Normal distal tibiofibular syndesmotic ligamentous complex. Normal lateral ligamentous complex. Normal subtalar ligaments and sinus tarsi. Normal deltoid ligamentous complexes. Normal plantar calcaneonavicular (spring) ligament. 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 Small inferior calcaneal spur (sagittal series 5 image 12). Normal talar dome. Normal subtalar articulations. Normal talonavicular articulation. Normal calcaneocuboid articulation. Normal navicular-cuneiform articulations. MRI/Lower Ext Joint Only (Routine) IMPRESSION: Mild posterior tibialis tenosynovitis. Small inferior calcaneal spur. 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 Electronically Signed: Juan Ness MD at 15:44 EST , Service support , CC: Lyndsay Parry DO; Renetta Angulo DO Backup Engineer: Signed Renetta Angulo Start: 03-22-2019 End: 03-22-2019 Orthopedic Visit Report Comments: See Note; NOTES: [facility] Orthopaedics AND Sports Medicine [facility] [place] [address] OFFICE VISIT Date of Service: 03/15/19 MR#: [id number] Acct: [id number] Name: LYNDSAY GOSS Rep #: [id number] : 1965 Provider: Lyndsay Parry DO Age/Sex: 53/F Location[place] [facility] [place] Status: Signed Intake Vital Signs03/15/19 Body Mass Index (BMI) 35.5 02/23/19 Body Mass Index (BMI) 35.5 Intake Visit Reasons: LEFT ANKLE Is patient in pain?: Yes Allergies acetaminophen [From Tylenol] Allergy (Verified 03/21/19 07:01) Rash cefadroxil hydrate [From Duricef] Allergy (Verified 03/21/19 07:01) Unknown Penicillins Allergy (Verified 03/21/19 07:01) Hives rofecoxib [From Vioxx] Allergy (Verified 03/21/19 07:01) Other zolpidem tartrate [From Ambien] Allergy (Verified 03/21/19 07:01) Swelling meperidine HCl [From Demerol] Adverse Reaction (Verified 03/21/19 07:01) [facility] Social History (Updated 03/22/19 @ 13:00 by Lyndsay Parry DO) Smoking Status: Former smoker HPI LEFT ANKLE: Details: Parts of this documentation were recorded by a scribe, this documentation accurately reflects the service provided and the decisions made by me, Lyndsya Parry DO 03/15/19 1440. LYNDSAY GOSS is a 53 year old F here today for left ankle pain. Patient states that she sprained her ankle last year when she fell down the stairs. She states that her pain comes and goes. She notes that she has no pain currently but had her do some distraction, she felt a clunk and her pain felt better. She has pain over her posterior ankle. She notes that it feels like something isnt in the right place. Patient denies any swelling. She has decreased range of motion at times. She has seen a chiropractor and wears an ankle sleeve. She denies any xrays or MRI. She states that she had numbness when she sprained her ankle but the numbness improved. Patient had minimal swelling but had bruising after her injury. She notes that she has sprained her ankle multiple times. [facility] Reports joint pain Skin/Breast Reports system reviewed and no additional complaints, except as docu Neuro Yes system reviewed and no additional complaints, except as docu Ortho Exam Left Foot/Ankle Skin: No Soft Tissue Swelling Exam: No Soft tissue swelling Dorsiflexion 0-20: 20 degrees Plantar Flexion 0-40: 40 degrees ROM: Yes pain with ROM Sensation: Deep Peroneal Nerve: I, Superficial Peroneal Nerve: I, Tibial Nerve: I, Sural Nerve: I, Saphenous Nerve: I Assessment AND Plan Problems 1. 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 Injury of left ankle, subsequent encounter S99.827V Plan X-rays were reviewed. There is no obvious fracture, dislocation, or lucency noted but there are changes noted in the talus with flattening as well as a questionable small piece of bone from the tibia in the posterior ankle. She will need an mri to further eval the talus and the location of the bony piece. Follow up after MRI or sooner if pain, swelling, numbness or associated symptoms, or concerns develop. All questions answered. Patient in agreement of plan. 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 Injury of left ankle, subsequent encounter S99.085B Encounter type: subsequent encounter 03/22/19 1300 <Electronically signed by Lyndsay Parry DO> Date Lyndsay Parry DO Cosigner Signature: Date (if applicable) CC: Renetta Angulo Start: 03-21-2019 End: 03-21-2019 Discharge Instruction Comments: See Note; NOTES: [facility] Medical Records Department [address] [place] [address] Discharge Instruction 03/21/19 0845 MR#: [id number] Acct: [id number] Name: LYNDSAY GOSS Rep #: [id number] : 1965 53 From: Jaime Lopez MD PCP: Renetta Angulo DO Status: DEP ER ED Disposition - Plan for ED Patient: Disposition: Home or Assisted Living Instructions: ABDOMINAL PAIN, Unknown Cause, (Female) Prescriptions: Pantoprazole Sodium [Protonix] 40 mg PO DAILY #20 tab Prescription Printed Ondansetron [Zofran Odt] 4 mg PO Q8H PRN PRN #10 tab PRN Reason: Nausea Prescription Printed Referrals: Renetta Angulo DO [Primary Care Provider] - As soon as possible Additional Instructions: Follow-up with your doctor. Protonix for the abdominal pain which may be secondary to gastritis or reflux. Zofran as needed for nausea. What to do if you have Problems For any increased pain, shortness of breath, bleeding, nausea or vomiting, chest pain, or any unexpected problems, contact your Primary Care Provider. Call [facility] ([phone]) or report to the closest Emergency Room. Call 911 if necessary. 03/21/19 9145 <Electronically signed by Jaime Lopez MD> Date Jaime Lopez MD Cosigner Signature (If Indicated): Date CC: Renetta Argueta Start: 03-21-2019 End: 03-21-2019 Emergency Department Summary Comments: See Note; NOTES: [facility] Medical Records Department [address] [place] [address] Emergency Department Summary 03/21/19 0712 MR#: [id number] Acct: [id number] Name: LYNDSAY GOSS Rep #: [id number] : 1965 53 From: Jaime Lopez MD PCP: Renetta Angulo DO Status: DEP ER - ER Visit Summary Date of Service: 03/21/19 Chief Complaint: Epigastric pain History of Present Illness: The patient is a 53 F history hypertension and depression. Patient had a prior cholecystectomy. She states for a week she has been nauseated. The last 2 days she has had dry heaving primarily. And has developed epigastric abdominal pain. She denies any fever she has had some chills. No dysuria urgency nor frequency. No melena nor diarrhea or constipation. Nothing specifically makes the symptoms better or worse. She had some left wrist discomfort this morning and was concerned this could be potentially cardiac etiology and came in to be evaluated. She also thinks potentially this could be related to a new medication she started for depression in the last several weeks. Physical Examination: Middle-aged female no acute distress vital signs are stable and afebrile. Pulse ox 9% on room air no signs of hypoxia. H EENT exam unremarkable. Moist with membranes. Neck nontender no lymphadenopathy. Lungs clear to auscultation bilaterally. Heart regular rate and rhythm no murmur rate about 65. Abdomen is soft nontender normal bowel sounds no peritoneal signs. Where she complains of pain is epigastric region anteriorly not specifically tender. Nor is the right upper quadrant nor is the right lower quadrant. There is no Sandoval sign no McBurney's point tenderness. No hernia or masses. No signs of obstruction. No pulsatile mass. She is moving all 4 extremities. There are neurovascular intact. Calves are nontender without edema or cords. Both hands have equal and symmetrical hand tool filer strength. Strong radial pulses. And normal range of motion. Back is nontender. Neurologically she is awake and alert with no focal motor deficits. Test Results: CBC normal white count 11. Hemoglobin 15. Chemistries normal normal creatinine and gap. Liver enzymes normal. Lipase normal 107. Troponin normal. EKG sinus bradycardia rate of 57 unchanged from prior EKG from April. Chest x-ray portable 1 view read both by myself and the radiologist showed no acute abnormality with normal cardiac silhouette mediastinum. Emergency Department Course and Treatment: Patient has symptoms of nausea and primarily epigastric discomfort. She has a benign exam. Clinically I do not think is to be cardiac but we will do an EKG, chest x-ray and troponin along with abdominal labs. She will be treated with Zofran for her nausea. And reassess Treatment Plan: Repeat exam patient is doing well at 08 41. He is requesting additional nausea medication. I went over all test results with her and her family. Her abdomen is benign. She will be discharged home with outpatient follow-up. Zofran for nausea. And Protonix for possible gastritis. Disposition: dc Impression: Epigastric abdominal pain of uncertain etiology This note was generated with [employer] dictation software. It may contain incorrect words, spelling, and punctuation that were not noted in review of the chart prior to signing ED Disposition - Plan for ED Patient: Referrals: Renetta Angulo DO [Primary Care Provider] - What to do if you have Problems For any increased pain, shortness of breath, bleeding, nausea or vomiting, chest pain, or any unexpected problems, contact your Primary Care Provider. Call [facility] ([phone]) or report to the closest Emergency Room. Call 911 if necessary. 03/21/19 1509 <Electronically signed by Jaime Lopez MD> Date Jaime Lopez MD Cosigner Signature (If Indicated): Date CC: Renetta Argueta Start: 03-21-2019 End: 03-21-2019 Chest 1 View (Portable) Comments: See Note; NOTES: [facility] Imaging Services [address] [place] [address] Chest 1 View (Portable) MR#: [id number] Acct: [id number] Name: LYNDSAY GOSS Rep #: [id number] : 1965 F 53 From: Cain Flores PCP: Renetta Angulo DO Status: REG ER Study: Chest 1 View (Portable) Date of Exam: 03/21/19 Exam# [id number] Ordering Dr: Jaime Lopez MD STUDY: X-RAY CHEST REASON FOR EXAM: Female, 53 years old. Nausea with chest pain. TECHNIQUE: AP portable chest. COMPARISON: None. FINDINGS: The lungs are clear and expanded. There is no demonstrated pleural abnormality. Normal size heart. Normal mediastinum and rika. Normal visualized pulmonary arteries. Normal visualized aortic arch and descending thoracic aorta. Normal visualized thoracic spine. Normal visualized ribs, clavicles, and shoulders. There is no demonstrated abnormality of the visualized soft tissue structures of the upper abdomen. RAD/Chest 1 View (Portable) IMPRESSION: Normal x-ray examination of the chest. Electronically Signed: Cain Flores MD at 7:34 EST , Service support , CC: Jaime Lopez MD; Renetta Angulo DO Backup Engineer: Signed Beatriz Maria Work Phone: Start: 03-15-2019 End: 03-15-2019 Ankle min 3 Views Comments: See Note; NOTES: [facility] Imaging Services [address] [place] [address] Ankle min 3 Views MR#: [id number] Acct: [id number] Name: LYNDSAY GOSS Rep #: [id number] : 1965 F 53 From: Rich Elizabeth MD PCP: Renetta Angulo DO Status: REG CLI Study: Ankle min 3 Views Date of Exam: 03/15/19 Exam# [id number] Ordering Dr: Lyndsay Parry DO STUDY: X-RAY - LEFT ANKLE REASON FOR EXAM: Pain, injury. TECHNIQUE: 3 view(s) of the ankle. COMPARISON: Radiographs of left foot 10/19/2016. FINDINGS: Normal visualized distal tibia and fibula. Normal medial and lateral malleoli. Normal tibiotalar articulation and ankle mortise. There are small posterior and plantar calcaneal enthesophytes. Otherwise, unremarkable visualized talus and calcaneus. The visualized subtalar, talonavicular, calcaneocuboid and tarsal articulations are normal. The soft tissue structures are unremarkable. RAD/Ankle min 3 Views IMPRESSION: Mild calcaneal enthesopathy. Otherwise, unremarkable x-ray examination of the left ankle. Electronically Signed: Rich Elizabeth MD at 15:26 EST Tel , Service support , CC: Lyndsay Parry DO; Renetta Angulo DO Backup Engineer: Signed Renetta Angulo Start: 02-21-2019 End: 02-21-2019 Operative Report Comments: See Note; NOTES: [facility] Medical Records Department [address] [place] [address] Operative Report 02/21/19 1058 MR#: [id number] Acct: [id number] Name: LYNDSAY GOSS Rep #: [id number] : 1965 53 From: Lyndsay Parry DO PCP: Renetta Angulo DO Status: REG [facility] [place] [facility] Location: [place] [address] Report of Operation Date of Procedure: 02/21/19 Pre-Operative Diagnosis: bilateral carpal tunnel syndrome, right lateral epicondylitis Post-Operative Diagnosis: same Surgery/Procedure Performed:: right carpal tunnel release, right lateral epicondyle injection, left carpal tunnel injection manager pacu: Javier Landaverde Type of Anesthesia:: Beto Lambert Anesthesiologist: Stanislaw Smith Estimated Blood Loss (mL): none Fluids Replaced: 500cc lr Description of Procedure: Preoperative note Patient is a 53 year old patient with nerve conduction study confirming carpal tunnel syndrome. Patient failed conservative treatment for her carpal tunnel elected proceed with right carpal tunnel release. Patient also has left carpal tunnel as well as right lateral epicondylitis and would like those injected Risks benefits and alternatives surgery discussed with patient. Risks including but not limited to blood loss, blood clot, infection, neurovascular injury, failure procedure, loss of life and loss of limb. Patient is aware like proceed with right carpal tunnel release, left carpal tunnel injection right lateral epicondyle injection. Operative note Patient seen and examined preoperative holding area. right hand was marked. History and physical and consent reviewed. Patient was brought to the operating room placed supine on the operating table. Sign in, anesthesia, antibiotics were administered. right upper extremity was prepped and draped after [place] block was initiated. All bony prominences well-padded SCDs placed on bilateral lower extremities. We marked out our incisions for our carpal tunnel release at the intersection of Luh's line in the fourth ray flexed. We extended about a centimeter and a half. Timeout was performed. We then checked ensure that the Beto block was working with pickups which it was not so we performed a local block of 10cc 1% lidocaine. We then used a 15 blade to make a skin incision. We then dissected down tenotomy syllable of the transverse carpal ligament. We then used a new 15 blade cut through the transverse carpal ligament down to the level of the median nerve. We then further released the median nerve the combination of the 15 blade and tenotomies. The nerve was grayish in color and adherent to the transverse carpal ligament volarly. We released the transverse carpal ligament distally to the fat pad and then proximally under standard technique. We then palpated to ensure that we released all of the transverse carpal ligament which we did. We irrigated the incision with copious amounts of sterile saline. All bleeders were coagulated. The incision was closed with interrupted 4-0 nylon stitches. Tourniquet was deflated for total working time of 9 minutes. Under standard sterile technique we also injected the left carpal tunnel as well as the right lateral epicondyle and placed Band-Aids. Patient tolerated procedure well there were no complications. Patient transferred to recovery room in stable condition. Postoperative note Hospital pharmacy has prescription Leave dressing clean dry and intact Follow-up in 2 weeks Call with concerns This note was generated with [employer] software. It may contain incorrect words, spelling, and punctuation that were not noted in checking the note before signing 02/21/19 1104 <Electronically signed by Lyndsay Parry DO> Date Lyndsay Parry DO CC: Lyndsay Parry DO; Renetta Angulo DO Signed Renetta Angulo Start: 02-21-2019 End: 02-21-2019 Discharge Instruction Comments: See Note; NOTES: [facility] Medical Records Department [address] [facility] [place] [address] Instructions for Home/Discharge Instructions 02/21/19 1057 MR#: [id number] Acct: [id number] Name: ANA PAULALYNDSAY MCADAMS Dylan Rep #: [id number] : 1965 53 From: Lyndsay Parry DO PCP: Renetta Angulo DO Status: REG CAC Discharge Diet: No Restrictions - leave dressing intact, follow up in 2 weeks for dressing change, call with concerns Discharge Activity: May Not Drive May shower in (days): 1 Ice area for (Minutes): 20 - Every hour while awake. Weight Bearing Status: Weight bearing as tolerated Keep extremity elevated above heart level: Operative Extremity Call your doctor if your incision/area has: Continuous Slow Oozing, Sudden Increased Bleeding, Increased Pain/ Swelling, Increased Redness, Foul Smelling Discharge Call your doctor if you observe: Fever of 101 or Higher, Coldness, Increased Pain, Numbness or Tingling, Change in Color, Calf discomfort Allergies/Adverse Reactions: Allergies acetaminophen [From Tylenol] Allergy (Verified 02/16/19 15:40) Rash cefadroxil hydrate [From Duricef] Allergy (Verified 02/16/19 15:40) Unknown Penicillins Allergy (Verified 02/16/19 15:40) Hives rofecoxib [From Vioxx] Allergy (Verified 02/16/19 15:40) Other zolpidem tartrate [From Ambien] Allergy (Verified 02/16/19 15:40) Swelling meperidine HCl [From Demerol] Adverse Reaction (Verified 02/16/19 15:40) Nausea Medications to take at Discharge Atenolol [Tenormin (beta Joselin)] 25 mg PO DAILY 06/19/14 Fluticasone 0.05% [Flonase Nasal Enon] 2 spray NASAL DAILY 06/19/14 Valtrex 200 mg PO DAILY 06/19/14 duloxetine 30 mg capsule,delayed release 30 mg PO DAILY 01/25/19 lisinopril 20 mg tablet 20 mg PO DAILY 01/25/19 sertraline 100 mg tablet 100 mg PO DAILY 01/25/19 Guanfacine HCl [Intuniv] 2 mg PO QHS 02/16/19 Oxycodone [Oxyir] 5 mg PO Q4H PRN PRN 5 Days #20 tab 02/21/19 The following prescriptions were given: Oxycodone [Oxyir] 5 mg PO Q4H PRN PRN 5 Days #20 tab PRN Reason: Pain Transmission Status: Sent to [facility] Primary Care Physician: Renetta Angulo DO [Primary Care Provider] - Test Results: Test results from this visit will be discussed in further detail at your follow-up appointment, if applicable. Please Follow Up With: Lyndsay Parry DO - [phone] 02/21/19 1058 <Electronically signed by Lyndsay Parry DO> Date Lyndsay Parry DO CC: Renetta Angulo DO Signed Renetta Angulo Start: 02-21-2019 End: 02-21-2019 History and Physical Exam Comments: See Note; NOTES: [facility] Medical Records Department [address] [place] [address] History and Physical 01/25/19 0354 MR#: [id number] Acct: [id number] Name: LYNDSAY GOSS Rep #: [id number] : 1965 53 From: Lyndsay Parry DO PCP: Renetta Angulo DO Status: PRE [facility] Location: [facility] I have re-examined the patient. There are no clinical changes since date of exam. Intake Vital Signs 01/25/19 Body Mass Index (BMI) 37.8 Intake Visit Reasons: Rt elbow Allergies acetaminophen [From Tylenol] Allergy (Verified 05/15/17 14:20) Rash cefadroxil hydrate [From Duricef] Allergy (Verified 05/15/17 14:20) Unknown Penicillins Allergy (Verified 05/15/17 14:20) Hives rofecoxib [From Vioxx] Allergy (Verified 05/15/17 14:20) Other zolpidem tartrate [From Ambien] Allergy (Verified 05/15/17 14:20) Swelling meperidine HCl [From Demerol] Adverse Reaction (Verified 05/15/17 14:20) Nausea Medications Atenolol [Tenormin (beta Joselin)] 25 mg PO DAILY 06/19/14 [History Confirmed 01/25/19] Fluticasone 0.05% [Flonase Nasal Enon] 2 spray NASAL DAILY 06/19/14 [History Confirmed 01/25/19] Valtrex 200 mg PO DAILY 06/19/14 [History Confirmed 01/25/19] duloxetine 30 mg capsule,delayed release 30 mg PO DAILY 01/25/19 [History Confirmed 01/25/19] lisinopril 20 mg tablet 20 mg PO DAILY 01/25/19 [History Confirmed 01/25/19] sertraline 100 mg tablet 100 mg PO DAILY 01/25/19 [History Confirmed 01/25/19] PFSH Social History (Updated 01/25/19 @ 15:54 by Lyndsay Parry DO) Smoking Status: Former smoker HPI Rt elbow: Surgical H AND P: Yes Details: Parts of this documentation were recorded by a scribe, this documentation accurately reflects the service provided and the decisions made by me, Lyndsay Parry DO 01/25/19 0135. LYNDSAY GOSS is a 53 year old F here today for BL carpal tunnel syndrome. Patient had an EMG and this showed moderate carpal tunnel of the right wrist and mild carpal tunnel of the left wris.t Patient has had rigth elbow pain since last spring and has had her BL carpal tunnel syndrome for the last year. Patient has tried night splint which was not effective. Patient has a burning over right lateral epicondyle. Denies any injury or previosu injections. Denies any recent PT. Patient states her right lateral elbow causes her the greatest pain. ROS Const Reports weakness Musc Reports joint pain, Denies joint swelling, Reports muscle weakness, Reports numbness, Reports radiating pain into limb, Denies stiffness, Reports tingling Skin/Breast Denies redness, Denies lesions, Denies itching, Denies rash, Denies skin swelling Neuro Yes numbness, Yes tingling, Yes weakness Ortho Exam Right Wrist/Hand Right Wrist: Yes Durken's Test and Thenar Atrophy Motor: EPL: 5, FDP-2: 4, 1st Dorsal Interosseous: 5, APB: 5 Sensation: Radial: I, Ulnar: I, Median: D Left Wrist/Hand Left Wrist: Yes Durken's Test; no Thenar Atrophy Sensation: Radial: I, Ulnar: I, Median: I Right Elbow Test: Yes TTP Lateral Epicondyle, Yes Pain w/ resist wrist ext No rales rhonchi wheezing, no abdominal pain, no audible bruits Assessment AND Plan Problems 1. Bilateral carpal tunnel syndrome G56.03 2. Right lateral epicondylitis M77.11 Plan X-rays were reviewed. There is no obvious fracture, dislocation, or lucency noted. Reviewed her EMG Educated on the anatomy of the wrists and innervation of the nerves, she has bilateral carpal tunnel, mild on left and moderate of the right, and her treatment options are do nothing, injections, night splint of the left wrist or release of the right due to the muscle wasting already visible. Reviewed the goal of surgery is stop progression, there may not be full return of strength. We can also inject the lateral epicondyle during surgery. Reviewed the pre-operative plans with the patient. Risks and benefits of the procedure were fully explained, including but not limited to infection, neurovascular injury, continued pain, arthritis, stiffness, need for further surgery, re-injury, DVT, PE, general risks of anesthesia, and loss of limb or life. The patient understands all the risks and does wish to proceed with written consent. Follow up post op or sooner if pain, swelling, numbness or associated symptoms, or concerns develop. All questions answered. Patient in agreement of plan. Orders Orders: Coding Level of Care Code Off vis,est,level 4 Diagnoses Bilateral carpal tunnel syndrome G56.03 Right lateral epicondylitis M77.11 01/25/19 1554 <Electronically signed by Lyndsay Parry DO> Date Lyndsay Parry DO 02/21/19 0731 <Electronically signed by Lyndsay Parry DO> Date: Time: Lyndsay Parry DO CC: Lyndsay Parry DO; Renetta Angulo DO Date Dictated: 01/25/19 0354 Date Transcribed: 02/01/19 1639 Backup Engineer: Signed Renteta Angulo Start: 01-25-2019 End: 01-25-2019 Elbow min 3 Views Comments: See Note; NOTES: [facility] Imaging Services [address] [place] [address] Elbow min 3 Views MR#: [id number] Acct: [id number] Name: ANA PAULALYNDSAY K Rep #: [id number] : 1965 F 53 From: Tre Fry MD PCP: Renetta Angulo DO Status: REG CLI Study: Elbow min 3 Views Date of Exam: 01/25/19 Exam# [id number] Ordering Dr: Lyndsay Parry DO STUDY: X-RAY - RIGHT ELBOW REASON FOR EXAM: Female, 53 years old. Pain TECHNIQUE: 3 view(s) of the elbow. COMPARISON: None. FINDINGS: Normal visualized humerus, radius and ulna. 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 The soft tissue structures are unremarkable. RAD/Elbow min 3 Views IMPRESSION: Arthrosis of the elbow, as described above. Electronically Signed: Darrion Fry MD at 17:18 EDT , Service support , CC: Lyndsay Parry DO; Renetta Angulo DO Backup Engineer: Signed Renetta Angulo Start: 01-25-2019 End: 01-25-2019 Wrist 2 Views Comments: See Note; NOTES: [facility] Imaging Services [address] [place] [address] Wrist 2 Views MR#: [id number] Acct: [id number] Name: LYNDSAY GOSS Rep #: [id number] : 1965 F 53 From: Rich Elizabeth MD PCP: Renetta Angulo DO Status: REG CLI Study: Wrist 2 Views Date of Exam: 01/25/19 Exam# [id number] Ordering Dr: Lyndsay Parry DO STUDY: X-RAY - RIGHT WRIST REASON FOR EXAM: Wrist pain. TECHNIQUE: 2 view(s) of the wrist were obtained. COMPARISON: Radiographs 04/19/2016. FINDINGS: Normal visualized distal radius and ulna. Normal radiocarpal articulation. Normal distal radioulnar articulation. Normal carpal bones. Normal carpal articulations. Normal carpometacarpal articulation of the thumb. Normal second through fifth carpometacarpal articulations. Normal visualized metacarpal bones. The soft tissue structures are unremarkable. RAD/Wrist 2 Views IMPRESSION: Normal x-ray examination of the right wrist. Electronically Signed: Rich Elizabeth MD at 15:35 EDT Tel , Service support , CC: Lyndsay Parry DO; Renetta Angulo DO Backup Engineer: Signed Renetta Angulo Start: 12-20-2018 End: 12-20-2018 NCS and/or EMG Patient Comments: See Note; NOTES: [facility] Pulmonary Services/Neurology [address] [place] [address] MR#: [id number] Acct: [id number] Name: LYNDSAY OGSS Rep #: [id number] : 1965 53 From: Yue Pham MD Referring Dr: Renetta Angulo DO Status: REG CLI Location: PSN Date: 12/20/18 Sex: F C NCS and/or EMG Patient Report Ordering Doctor: Renetta Angulo DATE OF SERVICE: 12/20/18 Lyndsay Goss is a 53-year-old female presents for electrodiagnostic testing of the upper limbs. She reports pain in the right elbow as well as numbness and tingling in both hands, worse on the right side. Electrodiagnostic findings: Right median motor nerve demonstrates prolonged distal latency with normal amplitude and conduction velocity. Normal left median motor response ulnar response is normal bilaterally, including conduction across the elbow. Normal median and ulnar F waves. Prolonged median sensory latency at the wrist bilaterally. Prolonged right median palmar latency normal ulnar and radial sensory responses. On needle EMG, all muscles tested in the upper limb showed no evidence of denervation with normal motor unit action potentials. Electrodiagnostic assessment: This is an abnormal study in the upper limbs. 1. Electrodiagnostic findings demonstrate bilateral median mononeuropathy. This is consistent with a mild left carpal tunnel syndrome and a moderate right carpal tunnel syndrome. 12/20/18 1609 <Electronically signed by Yue Pham MD> Date Yue Pham MD CC: Yue Pham MD; Renetta Angulo DO Date Dictated: 12/20/18 1534 Date Transcribed: 12/20/18 1534 Backup Engineer: AA Signed Renettacynthia Angulo Start: 01-10-2018 End: 01-10-2018 Dexa Bone Density Study Comments: See Note; NOTES: [facility] Imaging Services [address] [place] [address] Dexa Bone Density Study MR#: [id number] Acct: [id number] Name: LYNDSAY GOSS Rep #: [id number] : 1965 F 52 From: Antonio Zaidi MD PCP: Renetta Angulo DO Status: REG CLI Study: Dexa Bone Density Study Date of Exam: 01/10/18 Exam# [id number] Ordering Dr: Renetta Angulo DO STUDY: DUAL ENERGY X-RAY ABSORPTIOMETRY / DXA REASON FOR EXAM: Female, 52 years old. The patient is postmenopausal. No loss of height. TECHNIQUE: Bone Mineral Density (BMD) measurements of lumbar spine and bilateral hips were obtained. COMPARISON: None. FINDINGS: Lumbar Spine (L1-L4): g/cm2 (1.289) / T-score (0.9) / Z-score (1.5) Findings are suggestive of normal bone density with a low fracture risk. Left Femur Total: g/cm2 (1.183) / T-score (1.4) / Z-score (1.9) Left Femoral Neck: g/cm2 (1.102) / T-score (0.5) / Z-score (1.4) Right Femur Total: g/cm2 (1.176) / T-score (1.3) / Z-score (1.9) Right Femoral Neck: g/cm2 (1.042) / T-score (0.0) / Z-score (0.9) BD/Dexa Bone Density Study IMPRESSION: The patient is considered normal as outlined below according to World Steve Organization (WHO) criteria with a low fracture risk. Reference Information: The T-score is the number of standard deviations above or below the standard which is normal for young adults at their peak bone mineral density. The World Health Organization (WHO) interprets the T-scores as follows: Above -1 Normal bone density Between -1 and -2.5 Osteopenia Equal to / or below -2.5 Osteoporosis As a practical clinical guideline, osteopenia may be graded as follows: Mild -1 through -1.5 Moderate -1.6 through -2.0 Severe -2.1 through -2.4 The Z-score is the number of standard deviations above or below age-matched controls. A Z-score of less than -1.5 would be considered abnormal. References: 1. NIH Osteoporosis and Related Bone Diseases http://www.osteo.org 2. International Society for Clinical Densitometry http://www.iscd.org 3. National Osteoporosis Foundation http://www.nof.org Electronically Signed: Antonio Zaidi MD at 14:01 EDT Tel [phone], Service support , CC: Renetta Angulo DO Backup Engineer: Signed Renetta Angulo Work Phone: Start: 01-10-2018 End: 01-10-2018 SCREENING MAMM (CAD), BILAT Comments: See Note; NOTES: [facility] Imaging Services [address] [place] [address] SCREENING MAMM (CAD), BILAT MR#: [id number] Acct: [id number] Name: LYNDSAY GOSS Rep #: [id number] : 1965 F 52 From: Antonio Zaidi MD PCP: Renetta Angulo DO Status: REG CLI Study: SCREENING MAMM (CAD), BILAT Date of Exam: 01/10/18 Exam# [id number] Ordering Dr: Renetta Angulo DO MAMMOGRAPHY - BILATERAL SCREENING REASON FOR EXAM: Female, 52 years old. Routine annual screening examination. PERTINENT HISTORY: Non-contributory. History of left breast cyst. TECHNIQUE: Digital bilateral breast elijah (3D mammographic acquisition) in the CC and MLO projections. 2-D mediolateral oblique (MLO) and craniocaudad (CC) views of both breasts were obtained. CAD: Full Field Digital Mammography with Computer Added Detection was performed. COMPARISON: Comparison is made with prior outside examination dated December 10, 2016. FINDINGS: Breast Composition: The breasts are extremely dense, which lowers the sensitivity of mammography. There are no dominant masses or suspicious calcifications. No other significant abnormalities are identified. There has been no significant change since the prior study. BI/SCREENING MAMM (CAD), BILAT IMPRESSION: Stable bilateral screening mammogram. Yearly follow-up mammogram recommended. (A) ASSESSMENT CATEGORY: BIRADS Category 1: Negative. A letter regarding these results will be sent to the patient by the facility within 30 days. Approximately 10% of breast cancers are not detected by mammography. A normal mammogram should not delay biopsy of a clinically suspicious abnormality. [id number] Electronically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 renal calculi. There is no left hydronephrosis. DISTAL LEFT URETER: There is non-visualization of the distal left ureter. There is no demonstrated left ureterovesical junction calculus. There is no demonstrated left ureteral jet. AORTA: Not imaged I.V.C.: Not imaged BLADDER: The distended urinary bladder has a volume of 41 ml. Incidental note is made of a calcified gallstone, and gallbladder sludge. IMPRESSION: There is poor visualization of the right kidney. The renal cortex is echogenic. There are several small cysts within the right kidney. There is compensatory hypertrophy within the left kidney. Cholelithiasis. Electronically Signed: Jaylen Estes DO at 6:56 EST Tel , Service support [phone], CC: Julissa Crabtree DO; Beatriz Maria MD Backup Engineer: Signed Renetta Angulo Start: 04-01-2015 End: 04-01-2015 Re-Evaluation - PT Comments: See Note; NOTES: [facility] Physical Therapy [facility] [address] [place] [address] Fax REEVALUATION / MEDICARE RECERTIFICATION Ruddy 4d PHYSICAL THERAPY MR#: [id number] Acct: [id number] Name: LYNDSAY GOSS Rep #: [id number] : 1965 49 From: Leila Romero Referring DrKaren: Lyndsay Parry DO Status: REG RCR Insurance: [facility] Lyndsay Parry, It has been my pleasure to treat LYNDSAY GOSS over the last 11 visits for Frozen Shoulder. Please see the progress note below for an update on the physical therapy plan of care! Subjective: Its way better then it was- still has stiffness and weakness through certain motions. Still not sleeping well. Behind the back or over the other shoulder is not my favorite. Worst: 07/19, Best:04/20. Patient feels that she is 65% better. Weakness, Stiffness and achyness. Thinks she needs to continue therapy. Objective/Function: Posture: FH, RS, Increased kyphosis- can correct with VC's. ROM: flexion/ abduction, ER- WNL- pain with end range flexion/abduction, IR: to belt line-pain. Strength: 4- /5 thoughout shoulder and elbow- wrist and hand:WNL. Special Test: Impingment-positive, Empty Can-negative Plan Plan: Continue 2x a week for 4- Focus on strength and ROM. Goals Goal 1:: Patient will be I with HEP and progression Goal Time Frame: 4-6 Weeks Goal Progress: Progressing Goal 2:: Patient will demo full AROM where deficit to ease ADL's. Goal Time Frame: 4-6 Weeks Goal Progress: Progressing Goal 3:: Patient will demo 5/5 strength in UE where deficit to ease ADL's. Goal 4:: Patient will maintain proper posture t/o tx session to demo increased scapular s/s. Goal Time Frame: 4-6 Weeks Goal Progress: Progressing Anticipated Interventions Patient/Client Instruction: Educate patient on: Benefits of Fitness Program Therapeutic Exercise to Include: Strength training, Endurance training, Body mechanics, Postural training, Passive ROM, Active ROM, Scapular Strength/Stabilization TENS: Yes Cryotherapy (ice pack, ice massage): Yes Thermo therapy (hot pack): Yes Ultrasound (thermal/non thermal): Yes Please do not hesitate to contact me at [phone] by phone or if you have questions or concerns regarding this new plan of care! Sincerely, Leila Romero <Electronically signed by Leila Romero > 04/01/15 1146 CC: Lyndsay Parry DO; Beatriz Maria MD ELR Signed For Medicare only, by signing this I certify the plan of care. _ Physicians Signature Date Renetta Angulo Start: 02-27-2015 End: 02-27-2015 Inital Evaluation - PT Comments: See Note; NOTES: [facility] Physical Therapy [facility] [place] [id number] Fax REHABILITATION SERVICES INITIAL EVALUATION MR#: [id number] Acct: [id number] Name: LYNDSAY GOSS Rep #: [id number] : 1965 49 From: Leila Romero Referring Dr.: Lyndsay Parry DO Status: REG R Insurance: [facility] Date: Patient's Visit Information LYNDSAY GOSS is a 49 year old F, referred to Physical Therapy by Lyndsay Parry,, with a diagnosis of Frozen Shoulder. Date of Evaluation: 02/27/15 Physical Therapist: Leila Romero - Visit Plan Frequency: 2-3x /Week Duration: 4 Weeks - Subjective Biceps tenotomy 9 weeks ago-now has severe pain started 4 weeks ago. No specific injury. Agg: movement, leaning on it, hanging down by the arm. Eases: medication. Worst: 10, Best: 10. Sharp shooting or constant ache all the time. Inside the joint- No radiating pain- no N/ T. Sleep- terrible-in a bed. Saw MD- thinks it may be frozen shoulder. No neck pain or increase in GONZALEZ. 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 Palpation: tender along medial border of the scapula and bicipital groove. Sensation: WNL. ROM:AROM: flexion:140 degrees, abduction:110 degrees, IR:belt line ER:70 degrees. Strength: in available range: 4/5 throughout with pain- Scap-fair minus. Special Test: impingment +, empty can-negative - Goals Goal 1:: Patient will be I with HEP and progression Goal Time Frame: 4-6 Weeks Goal 2:: Patient will demo full AROM where deficit to ease ADL's. Goal Time Frame: 4-6 Weeks Goal 3:: Patient will demo 5/5 strength in UE where deficit to ease ADL's. Goal 4:: Patient will maintain proper posture t/o tx session to demo increased scapular s/s. Goal Time Frame: 4-6 Weeks - Rehabilitation Potential Physical Therapy Diagnosis: Frozen Shoulder Rehabilitation Potential: Good - Anticipated Interventions Patient/Client Instruction: Educate patient on: Benefits of Fitness Program For the Purpose of:: To increase tolerance to activity/condition/position Therapeutic Exercise to Include: Strength training, Endurance training, Body mechanics, Postural training, Passive ROM, Active ROM, Scapular Strength/Stabilization For the Purpose of:: To improve muscle performance and motor function TENS: Yes Cryotherapy (ice pack, ice massage): Yes Thermo therapy (hot pack): Yes Ultrasound (thermal/non thermal): Yes For the Purpose of:: To decrease pain, To decrease swelling/inflammation Thank you for the opportunity to evaluate your patient. For Medicare and Medicare HMO plans, please review the plan of care and approve it. It will need to be FAXED BACK to us at [phone] for Medicare purposes. Please let me know if there are questions or concerns regarding this plan of care. Physician Signature: Date: <Electronically signed by Leila Romero > 02/27/15 1541 CC: Lyndsay Parry DO; Beatriz Maria MD ELR Signed For Medicare only, by signing this I certify the plan of care. _ Physicians Signature Date Renetta Angulo Start: 02-25-2015 End: 02-25-2015 PT Discharge Summary Comments: See Note; NOTES: [facility] Physical Therapy [address] [place] [address] Fax REHABILITATION SERVICES DISCHARGE SUMMARY MR#: [id number] Acct: [id number] Name: LYNDSAY GOSS Rep #: [id number] : 1965 49 From: Leila Romero Referring Dr.: Lyndsay Parry DO Status: PRE RCR Eval Date: Discharge Date: DATE OF SERVICE: Date of initial evaluation was August 19, 2014. The patient attended physical therapy for 9 sessions. Her last physical therapy session was September 18, 2014. At this point, she has not returned and PT feels it is appropriate she be discharged from [facility] Physical Therapy. Leila Romero DPT T: CAITLYN JOB: [id number] <Electronically signed by Leila Romero > 02/25/15 0952 CC: Beatriz Maria MD Signed Renetta Angulo Start: 01-15-2015 End: 01-15-2015 Operative Report Comments: See Note; NOTES: [facility] Medical Records Department [address] [place] [address] Operative Report 12/25/14 0820 MR#: [id number] Acct: [id number] Name: LYNDSAY GOSS Rep #: [id number] : 1965 49 From: Lyndsay Parry DO PCP: Beatriz Maria MD Status: DEP [facility] Y Location: [facility] Report of Operation Date of Procedure: 12/25/14 Pre-Operative Diagnosis: left knee biceps tendinosis, subscapularis tear Post-Operative Diagnosis: same Surgery/Procedure Performed:: sals, biceps tenotomy, subscap debridement Type of Anesthesia:: General, Local Anesthesiologist: Arias Otoole Estimated Blood Loss: minimal Fluids Replaced: 800cc LR Description of Procedure: Preoperative note Patient seen and examined in preop holding area. left biceps pain with use, better after medrol dose pack for allergic reaction to Tylenol after route canal. Positive speed's and Yergason's consistent with left biceps tendinosis. Risks benefits and alternative surgery were discussed with patient. Risks including but not limited to blood loss, blood clot, infection, neurovascular injury, continued pain, loss of life and loss of limb. Patient is aware would like to proceed with a left shoulder arthroscopy biceps tenotomy repair as indicated. Operative note next Patient seen and examined preoperative holding area. Left arm was marked. Patient was brought to the operative room placed supine on the operating table. Sign in, anesthesia, antibiotics were administered. The patient was placed supine on the operating table and all bony prominences were well-padded and SCDs were placed on her bilateral lower extremity. We then placed the patient in beachchair position please note the shelter through positioning we did repeat her blood pressure was stable. Left arm was prepped and draped in usual sterile fashion. We then marked out our bony landmarks for our portals. We did utilize our previous portal incisions. Timeout was performed. We then used an 11 blade for our posterior portal. We then were able to visualize glenohumeral joint. Which was intact. We then made an anterior portal under direct visualization. We then visualized the anterior biceps which has erythema when it was pulled further into the joint. There also was some subscapularis fraying at the most superior aspect of its insertion. We probed it was stable. Please note that preoperatively she had no subscap physical exam findings. We then used a combination of a shaver and an ablator and truncated the biceps at its insertion on the labrum. We then debrided back any residual labrum. We then debrided back the superior leading edge of the subscap that was frayed. We then moved into the subacromial space to ensure there was no further impingement. We visualized the rotator cuff there was no bursitis or any other impingement on the right knee tearing of the rotator cuff. We irrigated his acromial space out with irrigation. We then closed portals with interrupted 4-0 nylon stitches. Sterile dressings were applied after we injected one quarter percent bupivacaine with epi into the posterior and anterior portals. The patient tolerated procedure well and there were no complications. Postoperative note Pictures given to Oxycodone and Zofran prescriptions in chart May remove sling as tolerated next Follow-up in 2 weeks for suture removal or sooner if other if other issues arise This note was generated with Go Try It Onation software. It may contain incorrect words, spelling, and punctuation that were not noted in checking the note before signing. 01/15/15 1314 <Electronically signed by Lyndsay Parry DO> Date Lyndsay Parry DO CC: Lyndsay Parry DO; Beatriz Maria MD Signed Renetta Angulo Start: 12-25-2014 End: 12-25-2014 Discharge Instruction Comments: See Note; NOTES: [facility] Medical Records Department [address] [place] [address] Instructions for Home/Discharge Instructions 12/25/14 0819 MR#: [id number] Acct: [id number] Name: LYNDSAY GOSS Rep #: [id number] : 1965 49 From: Lyndsay Parry DO PCP: Beatriz Maria MD Status: REG [facility] Discharge Diet: No Restrictions - may remove sling as tolerated Discharge Activity: May Not Drive May shower in (days): 1 Ice area for (Minutes): 20 - Every hour while awake. Weight Bearing Status: Weight bearing as vanesa Keep extremity elevated above heart level: Operative Extremity Call your doctor if your incision/area has: Continuous Slow Oozing, Sudden Increased Bleeding, Increased Pain/ Swelling, Increased Redness, Foul Smelling Discharge Call your doctor if you observe: Fever of 101 or Higher, Coldness, Increased Pain, Numbness or Tingling, Change in Color, Calf discomfort Allergies/Adverse Reactions: Allergies acetaminophen [From Tylenol] Allergy (Verified 12/18/14 14:15) Rash cefadroxil hydrate [From Duricef] Allergy (Verified 06/25/14 11:08) Unknown Penicillins Allergy (Verified 06/19/14 15:19) Hives rofecoxib [From Vioxx] Allergy (Verified 06/19/14 15:19) Other zolpidem tartrate [From Ambien] Allergy (Verified 06/19/14 15:19) Swelling meperidine HCl [From Demerol] Adverse Reaction (Verified 06/19/14 15:19) Nausea Medications to take at Discharge Atenolol [Tenormin (beta Joselin)] 25 mg PO DAILY 06/19/14 Escitalopram Oxalate [Lexapro] 20 mg PO DAILY 06/19/14 Fluticasone 0.05% [Flonase Nasal Enon] 2 spray NASAL DAILY 06/19/14 Valtrex 200 mg PO DAILY 06/19/14 Levonorgestrel [Mirena] 1 each IY UD 12/18/14 Ondansetron [Zofran] 8 mg PO Q8H PRN PRN #20 tablet 12/25/14 Oxycodone [Oxyir] 5 mg PO Q4H PRN PRN #60 tablet 12/25/14 The following prescriptions were given: Oxycodone [Oxyir] 5 mg PO Q4H PRN PRN #60 tablet PRN Reason: Pain Ondansetron [Zofran] 8 mg PO Q8H PRN PRN #20 tablet PRN Reason: Nausea Please Follow Up With: Lyndsay Parry - [phone] 12/25/14 0820 <Electronically signed by Lyndsay Parry DO> Date Lyndsay Parry DO CC: Beatriz Angulo Start: 08-20-2014 End: 08-20-2014 Inital Evaluation - PT Comments: See Note; NOTES: [facility] Physical Therapy [facility] [address] [place] [address]. [address] [place] [address] Fax REHABILITATION SERVICES INITIAL EVALUATION MR#: [id number] Acct: [id number] Name: LYNDSAY GOSS Rep #: [id number] : 1965 49 From: Leila Romero Referring DrKaren: Lyndsay Parry DO Status: REG RCR Insurance: [facility] Date: DATE OF SERVICE: 08/19/2014 REASON FOR EVALUATION: Lyndsay Goss is a 49-year-old female referred to physical therapy with a medical diagnosis of status post left shoulder surgery. Date of surgery was June 26, [address] Parry. SUBJECTIVE: The patient reports that she has been having problems with her shoulder on and off for years. She especially had it cleaned out on June 26, 2014. She reports now she is having pain in her elbow, which Dr. Parry diagnosed with lateral upper epicondylitis, pain in her shoulder, worst is 5/10, best is 0/10, currently is 1/10. In her elbow, the worst is an 8/10, best is 0/10, currently is 0/10. The patient reports mostly dull and achy. She has no numbness and tingling. No increase in headaches. Aggravated by night pain, lifting things, eases are nothing. PAST MEDICAL HISTORY AND MEDICATIONS: [facility] 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 Functionally, she reports unable to sleep on the affected side, wash her opposite axilla, comb hair, push or pull on objects or get dressed without compensation. OBJECTIVE: POSTURE: Forward head, rounded shoulders, increased kyphosis, increased guarding of the left upper extremity. PALPATION: Not tender. RANGE OF MOTION: Within functional limits; however, she does report increased pain at end range flexion and abduction. SENSATION/REFLEXES: Intact. STRENGTH: Scapular strength/stabilization is poor. Flexion is 3+/5, abduction is 3/5, internal and external rotation 3+/5. Elbow flexion, extension is 5/5. Sheriff Deputy strength on the right is 80 for 3 trials, on the left is 60, 60, 50 through 3 trials. SPECIAL TESTS: Impingement is negative. INITIAL TREATMENT EVALUATION: Educated the patient on diagnosis and plan of care. The patient is agreeable to plan of care. Instructed the patient on home exercise program, which included postural education. ASSESSMENT: Lyndsay is a 49-year-old female referred to physical therapy with medical diagnosis of status post left shoulder surgery. Throughout my evaluation, the patient presents with hypomobility. The patient has decreased upper extremity strength, muscular endurance, poor posture with decreased scapular strength/stabilization. The patient's potential is fair. The patient will benefit from skilled physical therapy to solve the following goals. PROBLEM LIST: 1. Decreased home exercise program. 2. Decreased strength. 3. Poor posture. 4. Increased pain. GOALS: 1. The patient will be independent with home exercise program progression. 2. The patient will demonstrate 5/5 strength in upper extremity where deficit to ease ADLs. 3. The patient will maintain proper posture through treatment session and demonstrate increased scapular strength/stabilization. 4. The patient will report 0/10 pain for 1 week with all normalized activities. PLAN OF CARE: The patient will be seen 2 times a week for 4 weeks. The patient will be educated on diagnosis and plan of care. The patient will be educated in home exercise program progression, interventions to include therapeutic exercise, therapeutic activity, neuromuscular education, gait, and manual modalities. The patient's discharge plan is independent with home exercise program and return to normalized activities with decreased pain. Leila Romero DPT T: NTS JOB: [id number] <Electronically signed by Leila Romero > 08/20/14 1625 CC: Signed For Medicare only, by signing this I certify the plan of care. _ Physicians Signature Date Renetta Angulo Start: 06-26-2014 End: 06-26-2014 Operative Report Comments: See Note; NOTES: [facility] Medical Records Department [address] [place] [address] Operative Report 06/26/14 0842 MR#: [id number] Acct: [id number] Name: LYNDSAY GOSS Rep #: [id number] : 1965 48 From: Lyndsay Parry DO PCP: Beatriz Maria MD Status: REG SDC Y Location: [place] [address]- Report of Operation Date of Procedure: 06/26/14 Pre-Operative Diagnosis: left shoulder impingment syndrome, rc tear Post-Operative Diagnosis: same manager pacu: Pelon Butt Type of Anesthesia:: General/Regional Anesthesiologist: Stanislaw Smith Specimen's removed: none Estimated Blood Loss: minimal Fluids Replaced: 1800cc Description of Procedure: Patient preoperative note Patient seen and examined in preoperative holding area. Left arm is painful. Patient is experiencing pain for over a year now. Physical exam c/w impingement syndrome. She has failed conservative treatment and MRI shows nothing of concern as far as pathology however she does does show some underlying bursitis anterior synovitis of biceps tendon. The risks benefits and alternatives to surgery were discussed with patient. Risks including but not limited to blood loss, blood clot, infection, neurovascular injury, failure procedure, loss of life and loss of limb. Patient is aware would like to proceed with left shoulder arthroscopy repair as indicated. Operative note Patient seen and examined in preoperative holding area. Left arm was marked. History and physical and consent were reviewed. The patient was brought to the operating room placed supine on the operating table with all bony prominences well-padded and SCDs placed on the bilateral lower extremities. Sign in anesthesia and antibiotics were administered. Patient was placed in beachchair positioning and blood pressures taken about shelter through. Positioning to make sure that her blood pressure was stable which it was. Her left arm was prepped and draped in usual sterile fashion. Timeout was performed. We then began our diagnostic arthroscopy. We marked out our bony landmarks and then created our posterior portal. We then were able to visualize the glenohumeral joint which was intact without cartilage damage The biceps tendon was intact. We then created our anterior portal under direct visualization. We able to use a probe to probe the biceps tendon further into the joint and we did note that it was not torn the and there was no erythema around the biceps tendon. We also evaluated the biceps labral anchor which was intact as well. There was some fraying of the rotator cuff at the anterior most border of the supraspinatus. We then inserted a meniscotome and gently debrided back the anterior rotator cuff that was torn to a stable rim. There was no loose bodies in the inferior recess. The rest of the rotator cuff was intact. We then inserted our scope into the subacromial space. We then created our lateral portal under direct visualization. There was extensive bursitis throughout the subacromial space. This was gently debrided back with a combination of a meniscotome and a burner. Her acromion had a type I configuration was not pointed or sloped. She had a little bit of undersurface arthritis at the AC junction when this was gently debrided with a bur. We irrigated the shoulder with copious amounts of sterile saline. We made sure that the bursa was excised totally paying special attention to the possibly from the hot water from the ablator. The portals were closed with 4-0 nylon. Dressings were applied. The patient had a postoperative regional block. The patient tolerated procedure well and there were no complications. Next Postoperative note Jason Zendejas Removed dressing and a days Call with increased pain, numbness, channeling or other issues arise 06/26/14918 <Electronically signed by Lyndsay Parry DO> Date Lyndsay Parry DO CC: Lyndsay Parry DO; Beatriz Maria MD Signed Renetta Angulo Start: 06-26-2014 End: 06-26-2014 Discharge Instruction Comments: See Note; NOTES: [facility] Medical Records Department [address] [place] [address] Instructions for Home/Discharge Instructions 06/26/14 0715 MR#: [id number] Acct: [id number] Name: ANA PAULALYNDSAY Rep #: [id number] : 1965 48 From: Lyndsay Parry DO PCP: Beatriz Maria MD Status: REG [facility] Discharge Diet: No Restrictions - leave dressing on until postop day 8 and apply bandaids to incision sites may remove sling as tolerated and move arm as pain allows call with concerns Discharge Activity: May Not Drive May shower in (days): 1 Ice area for (Minutes): 20 - Every hour while awake. Weight Bearing Status: Weight bearing as vanesa Keep extremity elevated above heart level: Operative Extremity Call your doctor if your incision/area has: Continuous Slow Oozing, Sudden Increased Bleeding, Increased Pain/ Swelling, Increased Redness, Foul Smelling Discharge Call your doctor if you observe: Fever of 101 or Higher, Coldness, Increased Pain, Numbness or Tingling, Change in Color, Calf discomfort Allergies/Adverse Reactions: Allergies cefadroxil hydrate [From Duricef] Allergy (Verified 06/25/14 11:08) Unknown Penicillins Allergy (Verified 06/19/14 15:19) Hives rofecoxib [From Vioxx] Allergy (Verified 06/19/14 15:19) Other zolpidem tartrate [From Ambien] Allergy (Verified 06/19/14 15:19) Swelling meperidine HCl [From Demerol] Adverse Reaction (Verified 06/19/14 15:19) Nausea Medications to take at Discharge Atenolol [Tenormin (beta Joselin)] 25 mg PO DAILY Escitalopram Oxalate [Lexapro] 20 mg PO DAILY Fluticasone 0.05% [Flonase Nasal Enon] 2 spray NASAL DAILY Modafinil [Provigil] 100 mg PO DAILY Valtrex 200 mg PO DAILY Ondansetron [Zofran] 8 mg PO Q8H PRN PRN #20 tablet Oxycodone HCl/Acetaminophen [Percocet 5/325] 1 - 2 tablet PO Q6H PRN PRN #60 tablet The following prescriptions were given: Oxycodone HCl/Acetaminophen [Percocet 5/325] 1 - 2 tablet PO Q6H PRN PRN #60 tablet PRN Reason: Pain Ondansetron [Zofran] 8 mg PO Q8H PRN PRN #20 tablet PRN Reason: Nausea Primary Care Physician: Beatriz Maria MD [Primary Care Provider] - Please Follow Up With: Lyndsay Parry - [phone] 06/26/14 0842 <Electronically signed by Lyndsay Parry DO> Date Lyndsay Parry DO CC: Beatriz Angulo Start: 06-21-2014 End: 06-21-2014 12 lead ECG Comments: See Note; NOTES: [facility] Cardiovascular Services [address] [place] [address] 12 Lead EKG 06/19/14 1444 MR#: [id number] Acct: [id number] Name: LYNDSAY GOSS Rep #: [id number] : 1965 48 From: Johnnie Klein MD Attending Dr: Lyndsay Parry DO Status: PRE SDC Ordering Dr: Lyndsay Parry DO Date: 06/19/14 Location: [facility] Sex: F C Admitted: Test Reason : Blood Pressure : / mmHG Vent. Rate : 054 BPM Atrial Rate : 054 BPM P-R Int : 136 ms QRS Dur : 074 ms QT Int : 440 ms P-R-T Axes : 043 -03 013 degrees QTc Int : 417 ms Sinus bradycardia Otherwise normal ECG Confirmed by JOHNNIE KLEIN ([id number]), scientific publications editor ZA RICARDO ([id number]) on 06/21/2014 11 :30:56 AM Referred By: YOMI PARRY Confirmed By:JOHNNIE KLEIN 06/21/14 1131 Date Johnnie Klein MD CC: Beatriz Maria MD Date Dictated: 06/19/14 1444 Date Transcribed: 06/19/14 144 Backup Engineer: Signed Renetta Angulo Start: 10-17-2013 End: 10-17-2013 PT Discharge Summary Comments: See Note; NOTES: [facility] Physical Therapy [address] [place] [address] Fax REHABILITATION SERVICES DISCHARGE SUMMARY MR#: [id number] Acct: [id number] Name: LYNDSAY GOSS Rep #: [id number] : 1965 48 From: Leila Romero Referring DrKaren: Lyndsay Parry DO Status: DIS RCR Eval Date: Discharge Date: 10/08/13 DATE OF SERVICE: Lyndsay Goss was referred to our care by Dr. Parry on the date of June 19, 2013. She attended physical therapy for 9 visits. On September 20, 2013 subjectively, she reports pain in her arm is better at night, but it depends on how she lays. She is unable to do some of her ADLs secondary to increase in pain and is planning to return to doctor for MRI. Pain at its worst is a 2-3/10, best is 0/10, mostly at rest. Range of motion within normal limits. Strength is 4-/5 throughout. Patterson-Vazquez is positive. Empty can is positive. Her plan is to return to MD for further evaluation. At this time, it is appropriate she be discharged from [facility] Physical Therapy. Leila Romero DPT T: CAITLYN JOB: [id number] <Electronically signed by Leila Romero > 10/17/13 1544 CC: Signed Renetta Julissa Start: 10-04-2013 End: 10-04-2013 Echocardiogram Complete Comments: See Note; NOTES: [facility] Cardiovascular Services [address] [place] [address] Echo Complete 10/03/13 1210 MR#: [id number] Acct: [id number] Name: LYNDSAY GOSS Rep #: [id number] : 1965 48 From: Johnnie Klein MD Attending Dr: Eleanor Gregory Status: REG CLI Ordering Dr: Eleanor Gregory Date: 10/03/13 Location: [facility] Sex: F C Admitted: Procedure This was a 2D Doppler, Color Flow transthoracic echocardiogram. Exam performed in department. Left Ventricle Normal size and thickness. The estimated ejection fraction is 60 %. Normal diastology for age. No regional wall motion abnormalities noted. Right Ventricle Normal size and thickness. Normal systolic function. Atria Normal left atrium. Normal right atrium. Normal atrial septum. Mitral Valve The mitral valve is structurally normal. No prolapse or stenosis seen. Tricuspid Valve Normal tricuspid valve. Unable to estimate RV systolic pressure. Aortic Valve Normal aortic valve. Trisinus/trileaflet aortic valve. Pulmonic Valve Normal pulmonic valve. Great Vessels Normal aortic root. Normal arch. Normal inferior vena cava. Inferior vena cava collapse with sniff. Pericardium/Pleural No pericardial effusion. LVIDd: 4.9 cm IVSd: 1.0 cm Ao root diam: 3.3 cm LAV(MOD-bp): 61.9 ml LVIDs: 2.4 cm LVPWd: 1.1 cm Ao root area: 8.3 cm2 LAV(MOD-bp) Indexed: 29.8 ml/m2 RVDd: 2.8 cm FS: 51.0 % LA dimension: 4.1 cm LAV(MOD-sp2): 81.6 ml LAV(MOD-sp4): 39.1 ml LA A4 area: 15.9 cm2 RA A4 area: 12.7 cm2 MV E max merrick: Lat Peak E' Merrick: Med Peak E' Merrick: Ao V2 max: 88.7 cm/sec 12.1 cm/sec 8.6 cm/sec 139.8 cm/sec MV A max merrick: Ao max P.8 mmHg 86.8 cm/sec MV E/A: 1.0 LV V1 max: 121.9 cm/sec PA V2 max: 95.8 cm/sec E/E' lat: 7.3 E /E' med: 10.3 LV V1 max P.9 mmHg PA max P.7 mmHg Interpretation Summary The estimated ejection fraction is 60 %. Normal diastology for age. Unable to estimate RV systolic pressure. Compared to echo report dated 08/13/2005, no changes noted. Ordering Physician: Eleanor Gregory Referring Physician: Beatriz Maria M.D. Performed By: Radha Hernandez RVT : Eleanor Gregory; Beatriz Maria MD Date Dictated: 10/03/13 1210 Date Transcribed: 10/04/13 1156 Backup Engineer: Signed Renetta Angulo Start: 10-02-2013 End: 10-02-2013 Upper Ext Joint Only(Routine) Comments: See Note; NOTES: [facility] Imaging Services [address] [facility] [place] [address] MRI Report MR#: [id number] Acct: [id number] Name: LYNDSAY GOSS Rep #: [id number] : 1965 F 48 From: Selvin Mason MD PCP: Beartiz Maria MD Status: REG CLI Study: Upper Ext Joint Only(Routine) Date of Exam: 10/02/13 Exam# [id number] Ordering Dr: Tommie Denise DO STUDY: MRI LEFT SHOULDER REASON FOR EXAM: Female, 48 years old. Left shoulder pain for 6 months TECHNIQUE: Standardized fat and water weighted pulse sequences were obtained in all 3 orthogonal planes. COMPARISON: X-rays of the left shoulder on 05-29-13 FINDINGS: Normal supraspinatus tendon. Normal infraspinatus tendon. Normal subscapularis tendon. Normal teres minor tendon. Normal supraspinatus muscle. Normal infraspinatus muscle. Normal subscapularis muscle. Normal teres minor muscle. Normal glenohumeral articulation. Normal humeral head and visualized proximal humerus. Normal biceps labral complex. Normal intracapsular long biceps tendon. Normal labrum. Normal capsulo- ligamentous complex. Normal rotator interval. There is mild arthrosis of the acromioclavicular articulation. There is a Type II morphology (curved), with a neutral orientation. There is no subacromial-subdeltoid bursal fluid. Normal visualized coracohumeral and coracoacromial ligaments. Normal quadrilateral space. Normal axillary space. Normal deltoid muscle. Normal trapezius muscle. IMPRESSION: Mild arthrosis of the acromioclavicular joint. Otherwise unremarkable examination Electronically Signed: Selvin Mason MD, FACR at 21:15 EDT , Service support [phone], CC: Beatriz Maria MD; Tommie Denise Backup Engineer: Signed Renetta Angulo Start: 09-25-2013 End: 09-25-2013 Ecg routine ecg w/least 12 lds w/i&r [MEASUREMENTS ANALYSIS] Date of Test: 09/25/2013 15:03:21; Heart Rate: 66; GA Interval: 136; QRS: 86; QT Interval: 404; Corrected QT Interval (QTc): 414; P Wave Basye: 39; QRS Wave Basye: -11; T Wave Basye: -1; Blood Pressure: 150/102 [ECG DIAGNOSTIC STATEMENTS] Date of Test: 09/25/2013 15:03:21; Summary: Sinus Rhythm WITHIN NORMAL LIMITS Eleanor Gregory Work Phone: Start: 07-26-2013 End: 07-26-2013 Cerv Spine 4 or 5 Views Comments: See Note; NOTES: [facility] Imaging Services [address] [place] [address] Radiology Report MR#: [id number] Acct: [id number] Name: LYNDSAY GOSS Rep #: [id number] : 1965 F 48 From: Juan Ness MD PCP: Beatriz Maria MD Status: REG CLI Study: Cerv Spine 4 or 5 Views Date of Exam: 07/26/13 Exam# [id number] Ordering Dr: Lyndsay Parry DO STUDY: X-RAY - CERVICAL SPINE REASON FOR EXAM: Female, 48 years old. Neck pain for several years. Right arm pain. TECHNIQUE: 6 view(s) of the cervical spine were obtained. COMPARISON: None FINDINGS: Normal anterior atlantoaxial articulation. Normal odontoid process. Normal cervical lordosis. Normal vertebral bodies and endplates. Normal disc space heights. Normal visualized intervertebral neuroforamina. The soft tissue structures are unremarkable. IMPRESSION: Normal x-ray examination of the visualized cervical spine. Electronically Signed: Juan Ness MD at 17:29 EDT , Service support [phone], CC: Lyndsay Parry DO; Beatriz Maria MD Backup Engineer: Signed Beatriz Maria Work Phone: Start: 11-06-2012 Lipid 1996 panel - Serum or Plasma Xr [place] Work Phone: section Reny silveira section Haley abreu section Juan Justin h section Georgie Slar b section Bijal Grav ius section Emilia Cros s section Isabell Coffm an section Haley abreu Etopic Reny Carlareyes ngrichard Etopic Haley abreu Etopic Juan Justin h Etopic Georgie Slar b Etopic Bijal Grav ius Etopic Emilia Cros s Etopic Isabell Coffm an Etopic Haley abreu Gallbladder Surgery Reny [place] ssenger Gallbladder Surgery Haley Fleming ocklbailey Gallbladder Surgery Juan S mith Gallbladder Surgery Georgie S larb Gallbladder Surgery Bijal G ravius Gallbladder Surgery Emilia vazquez Gallbladder Surgery Haley bowman History of cholecystectomy Ingrid Sandoval MA History of cholecystectomy Juan R Orozco CMA History of cholecystectomy Renetta Angulo DO Work Phone: History of cholecystectomy Juan R Orozco CMA History of cholecystectomy Kevin Olea LPN Operation on gallbladder Jaxon kareem Gates Operation on gallbladder Tra cy Karla Operation on gallbladder Rajiv Sandoval MA Operation on gallbladder Jessie kathie Orozco BUTTON RECLAIMER Operation on gallbladder Jessie Orozco BUTTON RECLAIMER Operation on gallbladder Dak seed potato arranger [place] 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 BOX 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 Operative procedure on shoulder Emilia Gates Comment on above: lt 12/25/14 Operative procedure on shoulder Isabelljeffrey Acosta Comment on above: lt 12/25/14 Operative procedure on shoulder Ingrid Sandoval MA Operative procedure on shoulder Juan R Orozco CMA Operative procedure on shoulder Juan R Orozco BUTTON RECLAIMER Operative procedure on shoulder [place] HOT BOX OPERATOR Other bilateral liga tion and division of fallopian tubes Reny Bird Other bilateral liga tion and division of fallopian tubes Haley Pineda Other bilateral liga tion and division of fallopian tubes Juan Middleton Other bilateral liga tion and division of fallopian tubes Georgie Slarb Other bilateral liga tion and division of fallopian tubes Bijal Gravius Other bilateral liga tion and division of fallopian tubes Emilia Gates Other bilateral liga tion and division of fallopian tubes Isabell Karla Other bilateral liga tion and division of fallopian tubes Haley Pineda Shoulder Surgery Reny silveira Comment on above: lt 12/25/14 Shoulder Surgery Haley abreu Comment on above: lt 12/25/14 Shoulder Surgery Juan martinez Comment on above: lt 12/25/14 Shoulder Surgery Georgie Slar b Comment on above: lt 12/25/14 Shoulder Surgery Bijal Grav ius Comment on above: lt 12/25/14 Shoulder Surgery Emilia chaudhry Comment on above: lt 12/25/14 Shoulder Surgery Haley abreu Comment on above: lt 12/25/14 Ingrid Schulz [place] BUTTON RECLAIMER [place]aca [place] BUTTON RECLAIMER Kevin Lefty LP N Plan of Treatment Date Care Activity Detail Author Start: 05-15-2027 Urine microalbumin profile DTaP,Tdap,Td Vaccine (2 - Td or Tdap) [facility] Start: 12-11-2023 Covid-19 Vaccine () Covid-19 Vaccine () [facility] Start: 12-11-2023 Influenza vaccination Influenza Vaccine (#1) [facility] Start: 12-20-2022 Procedure Education [facility]; [facility] Work Phone: Start: 12-20-2022 Cyanocobalamin vitamin b-12 [facility]; [facility] Work Phone: Start: 12-20-2022 Assay of thyroid stimulating hormone tsh [facility]; [facility] Work Phone: Start: 12-20-2022 Urnls dip stick/tablet reagent auto microscopy [facility]; [facility] Work Phone: Start: 12-20-2022 Urine albumin quantitative [facility]; [facility] Work Phone: Start: 12-20-2022 Comprehensive metabolic panel [facility]; [facility] Work Phone: Start: 12-20-2022 Lipid panel [facility]; [facility] Work Phone: Start: 12-20-2022 Blood count complete auto&auto difrntl wbc [facility]; [facility] Work Phone: Start: 12-20-2022 Hemoglobin glycosylated a1c [facility]; [facility] Work Phone: Start: 12-13-2022 End: 12-27-2022 COVID & INFLUENZA A/B & RSV NAAT, ROUTINE COVID & INFLUENZA A/B & RSV NAAT, ROUTINE Microbiology Routine URI, acute Expected: 12/13/2022, Expires: 12/27/2022 [facility] Work Phone: Comment on above: Expected: 12/13/2022, Expires: 3 Start: 12-10-2022 Influenza vaccination INFLUENZA (#1) [facility] Start: 04-15-2022 Hemoglobin glycosylated a1c [facility]; [facility] Work Phone: Start: 04-15-2022 Assay of thyroid stimulating hormone tsh [facility]; [facility] Work Phone: Start: 04-15-2022 Urnls dip stick/tablet reagent auto microscopy [facility]; [facility] Work Phone: Start: 04-15-2022 Urine albumin quantitative [facility]; [facility] Work Phone: Start: 04-15-2022 Comprehensive metabolic panel [facility]; [facility] Work Phone: Start: 04-15-2022 Lipid panel [facility]; [facility] Work Phone: Start: 04-15-2022 Blood count complete auto&auto difrntl wbc [facility]; [facility] Work Phone: Start: 04-15-2022 Procedure Education [facility]; [facility] Work Phone: Start: 04-15-2022 Provider Instructions for Treatment [facility]; [facility] Work Phone: Start: 12-07-2021 Basic metabolic panel calcium total [facility]; [facility] Work Phone: Start: 12-07-2021 End: 12-07-2021 Screening for depression performed [facility]; [facility] Work Phone: Start: 12-07-2021 Procedure Education [facility]; [facility] Work Phone: Start: 12-07-2021 Provider Instructions for Treatment [facility]; [facility] Work Phone: Start: 01-12-2021 Hemoglobin glycosylated a1c [facility]; [facility] Work Phone: Start: 01-12-2021 Procedure Education [facility]; [facility] Work Phone: Start: 01-12-2021 Provider Instructions for Treatment [facility]; [facility] Work Phone: Start: 12-22-2020 Procedure Education [facility]; [facility] Work Phone: Start: 12-22-2020 Provider Instructions for Treatment [facility]; [facility] Work Phone: Start: 12-05-2020 Procedure Education [facility]; [facility] Work Phone: Start: 12-05-2020 Culture bct isol&prsmptv id isolate ea urine [facility]; [facility] Work Phone: Start: 08-27-2021 Urnls dip stick/tablet rgnt non-auto w/o micrscp [facility]; [facility] Work Phone: Start: 05-01-2020 Procedure Education [facility]; [facility] Work Phone: Start: 05-01-2020 Iaadiadoo influenza [facility]; [facility] Work Phone: Start: 03-31-2020 Urnls dip stick/tablet reagent auto microscopy URINALYSIS, W/ MICRO (85641) [facility]; [facility] Work Phone: Start: 03-31-2020 Urine albumin quantitative MICROALBUMIN: CREATININE RATIO (13845) AND (30135) [facility]; [facility] Work Phone: Start: 03-31-2020 Lipid panel LIPID PANEL (15744) [facility]; [facility] Work Phone: Start: 03-31-2020 Comprehensive metabolic panel METABOLIC PANEL, COMPREHENSIVE (47791) [facility]; [facility] Work Phone: Start: 03-31-2020 Blood count complete auto&auto difrntl wbc CBC W/AUTO DIFF WBC (01954) [facility]; [facility] Work Phone: Start: 03-31-2020 TSH Qn TSH (89178) [facility]; [facility] Work Phone: Start: 03-31-2020 HbA1c (Bld) [Mass fraction] HGB A1C (44122) [facility]; [facility] Work Phone: Start: 03-31-2020 Procedure Education [facility]; [facility] Work Phone: Start: 03-31-2020 Provider Instructions for Treatment [facility]; [facility] Work Phone: Start: 02-08-2020 Procedure Education [facility] Work Phone: Start: 02-08-2020 [place]adoo influenza [facility] Work Phone: Start: 11-26-2019 Procedure Education [facility] Work Phone: Start: 11-26-2019 Provider Instructions for Treatment [facility] Work Phone: Start: 07-04-2019 Procedure Education [facility] Work Phone: Start: 07-04-2019 Provider Instructions for Treatment [facility] Work Phone: Start: 05-05-2019 DIABETES SCREEN DIABETES SCREEN [facility] Start: 05-05-2019 Diabetes Screening Diabetes Screening [facility] Start: 04-18-2019 Urnls dip stick/tablet reagent auto microscopy [facility] Work Phone: Start: 04-18-2019 Provider Instructions for Treatment [facility] Work Phone: Start: 04-12-2019 Procedure Education [facility] Work Phone: Start: 04-12-2019 Provider Instructions for Treatment [facility] Work Phone: Start: 10-13-2018 Hepatitis c antibody HEPATITIS C ANTIBODY (32229) [facility] Work Phone: Start: 10-13-2018 HbA1c (Bld) [Mass fraction] HGB A1C (77172) [facility] Work Phone: Start: 10-13-2018 Nuclear Ab IF (S) [Titer] ANGELINA (ANTINUCLEAR ANTIBODY) (16615) [facility] Work Phone: Start: 10-13-2018 Protein [Mass/Vol] Serum Protein Electrophoresis (SPEP) (40670) [facility] Work Phone: Start: 10-13-2018 Cobalamin (Vitamin B12) [Mass/Vol] VITAMIN B-12 (CYANOCOBALAMIN) (65050) [facility] Work Phone: Start: 10-13-2018 TSH Qn TSH (THYROID STIMULATING HORMONE) (94338) [facility] Work Phone: Start: 10-13-2018 Sedimentation rate rbc non-automated SED RATE ERYTHROCYTE (61122) [facility] Work Phone: Start: 10-13-2018 Comprehensive metabolic panel METABOLIC PANEL, COMPREHENSIVE (15024) [facility] Work Phone: Start: 10-13-2018 Blood count complete automated CBC & PLATELETS (AUTO) (85470) [facility] Work Phone: Start: 07-14-2018 Procedure Education [facility] Work Phone: Start: 06-22-2018 Patient Education [facility] Work Phone: Start: 06-22-2018 Procedure Education [facility] Work Phone: Start: 06-22-2018 Provider Instructions for Treatment [facility] Work Phone: Start: 06-16-2018 Procedure Education [facility] Work Phone: Start: 01-23-2018 Provider Instructions for Treatment [facility] Work Phone: Start: 12-10-2017 Screening for malignant neoplasm of breast Mammogram Screening [facility] Start: 11-21-2017 Cytp cerv/vag auto thin layer prep mnl screen [facility] Work Phone: Start: 11-21-2017 Provider Instructions for Treatment [facility] Work Phone: Start: 11-18-2017 Provider Instructions for Treatment [facility] Work Phone: Start: 11-06-2017 HPV TESTING HPV TESTING [facility] Start: 11-06-2017 Lipid panel Lipid Screening [facility] Start: 11-06-2017 LIPID SCREEN LIPID SCREEN [facility] Start: 11-06-2017 PAP TESTING PAP TESTING [facility] Start: 11-06-2017 Screening for malignant neoplasm of cervix Cervical Cancer Screening [facility] Start: 10-27-2017 Provider Instructions for Treatment [facility] Work Phone: Start: 07-20-2017 Provider Instructions for Treatment [facility] Work Phone: Start: 06-17-2017 Provider Instructions for Treatment [facility] Work Phone: Start: 10-19-2016 Procedure Education [facility] Work Phone: Start: 10-01-2016 Provider Instructions for Treatment [facility] Work Phone: Start: 07-21-2016 Mammography MAMMOGRAM [facility] Start: 04-19-2016 Procedure Education [facility] Work Phone: Start: 04-19-2016 Provider Instructions for Treatment [facility] Work Phone: Start: 02-20-2016 Procedure Education [facility] Work Phone: Start: 02-16-2016 Provider Instructions for Treatment [facility] Work Phone: Start: 12-22-2015 Procedure Education [facility] Work Phone: Start: 12-22-2015 Provider Instructions for Treatment [facility] Work Phone: Start: 08-04-2015 Provider Instructions for Treatment [facility] Work Phone: Start: 07-11-2015 SHINGRIX VACCINE (1 of 2) SHINGRIX VACCINE (1 of 2) [facility] Start: 06-04-2015 Provider Instructions for Treatment [facility] Work Phone: Start: 01-27-2015 Patient Education [facility] Work Phone: Start: 01-27-2015 Procedure Education [facility] Work Phone: Start: 01-27-2015 Provider Instructions for Treatment [facility] Work Phone: Start: 11-01-2014 25 hydroxy includes fractions if performed [facility] Work Phone: Start: 11-01-2014 Urnls dip stick/tablet reagent auto microscopy [facility] Work Phone: Start: 11-01-2014 Comprehensive metabolic panel [facility] Work Phone: Start: 11-01-2014 Lipid panel [facility] Work Phone: Start: 11-01-2014 Blood count manual cell count each [facility] Work Phone: Start: 11-01-2014 Assay of free thyroxine [facility]; [facility] Work Phone: Start: 11-01-2014 T4 free mass conc T4, FREE (THYROXINE) (51983) [facility] Work Phone: Start: 11-01-2014 Assay of thyroid stimulating hormone tsh [facility]; [facility] Work Phone: Start: 11-01-2014 Thyrotropin Qn TSH (38759) [facility] Work Phone: Start: 04-22-2014 Hemoglobin A1c/Hemoglobin.total mass fraction (Bld) Hemoglobin Glyclated (HGB A1C) (13983) [facility] Work Phone: Start: 04-22-2014 Hemoglobin glycosylated a1c [facility]; [facility] Work Phone: Start: 04-22-2014 Urnls dip stick/tablet reagent auto microscopy [facility] Work Phone: Start: 04-22-2014 Comprehensive metabolic panel [facility] Work Phone: Start: 04-22-2014 Lipid panel [facility] Work Phone: Start: 04-22-2014 Blood count complete auto&auto difrntl wbc [facility] Work Phone: Start: 04-22-2014 Procedure Education [facility] Work Phone: Start: 10-18-2013 Procedure Education [facility] Work Phone: Start: 10-18-2013 Assay of thyroid stimulating hormone tsh [facility]; [facility] Work Phone: Start: 10-18-2013 Thyrotropin Qn TSH (01854) [facility] Work Phone: Start: 10-18-2013 Urnls dip stick/tablet reagent auto microscopy [facility] Work Phone: Start: 10-18-2013 Comprehensive metabolic panel [facility] Work Phone: Start: 10-18-2013 Lipid panel [facility] Work Phone: Start: 10-18-2013 Blood count manual cell count each [facility] Work Phone: Start: 09-25-2013 Patient Education [facility] Work Phone: Start: 09-25-2013 Procedure Education [facility] Work Phone: Start: 09-25-2013 Provider Instructions for Treatment [facility] Work Phone: Start: 01-23-2013 Lipid panel [facility] Work Phone: Comment on above: screening Start: 01-23-2013 Patient Education [facility] Work Phone: Start: 01-27-2012 Patient Education [facility] Work Phone: Start: 06-29-2011 Provider Instructions for Treatment [facility] Work Phone: Start: 12-21-2010 Provider Instructions for Treatment [facility] Work Phone: Start: 09-14-2010 Urnls dip stick/tablet reagent auto microscopy [facility] Work Phone: Start: 2010 COLOGUARD (FIT-DNA) COLOGUARD (FIT-DNA) [facility] Start: 2010 Colonoscopy COLONOSCOPY [facility] Start: 2010 COLORECTAL CANCER SCREENING COLORECTAL CANCER SCREENING [facility] Start: [address] COLONOGRAPHY [facility] Start: 2010 FECAL OCCULT BLOOD FECAL OCCULT BLOOD [facility] Start: 2010 Screening for malignant neoplasm of colon [facility] Start: 2010 SIGMOIDOSCOPY SIGMOIDOSCOPY [facility] Start: 12-09-2009 Cortisol free [facility] Work Phone: Comment on above: 24 hour urine Start: 09-24-2009 Provider Instructions for Treatment [facility] Work Phone: Start: 06-16-2009 Provider Instructions for Treatment [facility] Work Phone: Start: 05-13-2009 Provider Instructions for Treatment [facility] Work Phone: Start: 04-24-2007 Blood count manual cell count each [facility] Work Phone: Start: 04-24-2007 Lipid panel [facility] Work Phone: Start: 04-24-2007 Comprehensive metabolic panel [facility] Work Phone: Start: 06-27-2006 Provider Instructions for Treatment [facility] Work Phone: Start: 01-18-2006 Comprehensive metabolic panel [facility] Work Phone: Start: 01-18-2006 Lipid panel [facility] Work Phone: Start: 01-18-2006 Blood count manual cell count each [facility] Work Phone: Comment on above: all in 2-07 Start: 01-18-2006 Provider Instructions for Treatment [facility] Work Phone: Start: 1984 Hepatitis B Vaccine (1 of 3 - 19+ 3-dose series) Hepatitis B Vaccine (1 of 3 - 19+ 3-dose series) [facility] Start: 1984 Urine microalbumin profile DTAP,TDAP,TD (1 - Tdap) [facility] Start: 07-11-1983 ANNUAL PCP TEAM CHRONIC DISEASE VISIT ANNUAL PCP TEAM CHRONIC DISEASE VISIT [facility] Start: 07-11-1983 Anxiety Screening Anxiety Screening [facility] Start: 07-11-1983 BP CONTROLLED (<130/80) BP CONTROLLED (<130/80) [facility] in Start: 07-11-1983 HEPATITIS C SCREENING HEPATITIS C SCREENING [facility] Start: 07-11-1983 Hepatitis C screening Hepatitis C Screening [facility] Start: 1965 HEPATITIS B (1 of 3 - 3-dose series) HEPATITIS B (1 of 3 - 3-dose series) [facility] End: 01-12-2024 Radiologic exam chest 2 views XR CHEST 2V FRONTAL/LAT Radiology STAT Acute cough 1 Occurrences starting 12/13/2022 until 01/12/2024 [facility] Work Phone: Comment on above: 1 Occurrences starting 12/13/2022 until 01/12/2024 ROUTINE FLU A/B + RSV ROUTINE FL U A/B + RSV Lab Routine URI, acute Ordered: 12/13/2022 [facility] Work Phone: Comment on above: Ordered: 12/13/2022 SARS-CoV-2 (COVID-19 ) RNA [Presence] in Respiratory specimen by BELÉN with probe detection COVID NAAT, ROUTINE Microbiology Routine URI, acute Ordered: 12/13/2022 [facility] Work Phone: Comment on above: Ordered: 12/13/2022 [facility] Work Phone: [facility] Work Phone: [facility] Work Phone: [facility] Work Phone: [facility] Work Phone[facility] Work Phone: [facility] Work Phone: [facility]: [facility] Work Phone: [facility] Work Phone: [facility] Work Phone: [facility] Work Phone: [facility] Work Phone: [facility] Work Phone: [facility] Work Phone: [facility] Work Phone: [facility] Work Phone: [facility] Phone: [facility] Work Phone: [facility] Work Phone: [facility] Work Phone: [facility] Work Phone: [facility] Work Phone: [facility] Work Phone: [facility] Work Phone: [facility] Work Phone[facility] Work Phone[facility] Work Phone: [facility] Work Phone: [facility]; [facility] Work Phone: [facility]; [facility] Work Phone: [facility]; [facility] Work Phone: [facility]; [facility] Work Phone: [facility]; [facility] Work Phone: [facility]; [facility] Work Phone: Immunizations Immunization Date Immunization Notes Care Provider [facility] 04-13-2022 influenza virus vaccine, unspecified formulation [facility] Work Phone: [facility] 04-11-2018 influenza, seasonal, injectable Renetta Angulo [facility] Work Phone: Comment on above: at school 05-15-2017 tetanus toxoid, reduced diphtheria toxoid, and acellular pertussis vaccine, adsorbed Dr. 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 Work Phone: Payers Date Payer Category Payer Self-pay [id number] 2023 Unknown [id number] 2018 Unknown 2012 Unknown [id number] 2011 Unknown [id number] 2008 Private Health Insurance [id number] 1965 Unknown [id number] 1965 Unknown [id number] Unknown [id number] Unknown [id number] Unknown [id number] Unknown [id number] Social History Date Type Detail Facility Start: 12-13-2022 Alcohol Use Former smoker [facility] Work Phone: Comment on above: Occasional alcohol u se none 01/23 Inactive , heterosexua l, 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 [facility] Work Phone: Former smoker. [facility]; [facility] Work Phone: Start: 07-20-2021 End: 10-07-2021 Tobacco smoking status [facility] Unknown if ever smoked [facility] Start: 03-21-2019 Non-smoker [facility] Start: 1965 Sex Assigned At Female W [facility] Start: 12-13-2022 End: 11-07-2024 Tobacco smoking status NHIS Ex-smoker [facility] Work Phone: History of tobacco use Current smoker [facility] Work Phone: Start: 12-13-2022 Tobacco use and exposure Smokeless tobacco non-user [facility] Work Phone: Start: 12-13-2022 Alcohol intake Current drinke r of alcohol (finding) [facility] Start: 12-13-2022 Tobacco use panel [facility] Start: 12-13-2022 Tobacco Comment 5 years in college [facility] Start: 10-03-2015 Alcohol Comment few drinks per month [facility] Start: 1965 Sex Assigned At Not on file C [facility] Tobacco smoking status No Smokin g Status Entered [facility] Start: 07-12-2024 Sex Female (finding) [facility] Functional Status Date Assessment Result Facility 12-23-2010 LP-IR Score 65 [facility] Work Phone: Comment on above: The LP-IR Score comb merly information from lipoproteinparticle concentration and size to give improvedassessment of insulin resistance and diabetes risk.Small LDL-P, LDL Particle Size, HDL-Particle, andLP-IR Score have been validated by [place] not cleared by [place] FDA; the clinical utilityof these test results has not been fully established.INSULIN RESISTANCE MARKER <--Insulin Sensitive Insulin Resistant--> Percentile in Reference PopulationInsulin Resistance ScoreLP-IR Score Low 25th 50th 75th High <27 27 45 63 >63 PATIENT WAS FASTINGP ERFORMED BY: S7 Affinity [id number] [facility] [id number] BY: KALPESH [facility][id number] [facility] [id number] Clinical Notes 01-19-2012 to 11-07-2024 Note Date & Type Note Facility 11-07-2024 Progress note [facility] 11-07-2024 Progress note Note Date/Time November 07, 2024 8:57am [facility] [address], [address] [place] [address] OFFICE VISIT Date of Service: 11/07/24 MR#: [id number] Acct: [id number] Name: LYNDSAY GOSS Rep #: [id number] : 1965 Provider: RED Ivan Age/Sex: 59/F Location: [facility] Status: Signed Intake Vital Signs 10/07/21 11:13 11/07/24 08:38 Height 5 ft 4 in 5 ft 4 in Weight: 174 lb 5 oz BMI 29.9 BP 132/80 H Blood Pressure Location Lt brachial Position Sitting Respiration 16 Pulse 62 Pulse Source NIBP Temp 98.2 F Temp Source Oral Pulse Oximetry (%) 98 Oxygen Delivery Method room air Intake Visit Reasons: POISON SHRUTHI Chief Complaint: rash Database Coordinator Required: No Is patient in pain?: No Allergies acetaminophen (From Tylenol) Allergy (Verified 11/07/24 08:43) Rash cefadroxil hydrate (From Duricef) Allergy (Verified 11/07/24 08:43) Unknown Penicillins Allergy (Verified 11/07/24 08:43) Hives rofecoxib (From Vioxx) Allergy (Verified 11/07/24 08:43) Other zolpidem tartrate (From Ambien) Allergy (Verified 11/07/24 08:43) Swelling meperidine HCl (From Demerol) Adverse Reaction (Verified 11/07/24 08:43) Nausea Medications ?Medication ?Instructions ?Recorded ?Confirmed ?Type atenolol 25 mg tablet 25 mg PO DAILY 06/19/1410/11 History fluticasone propionate 50 2 spray NASAL DAILY 06/19/14 11/07/24 History mcg/actuation nasal spray,suspension dextromethorphan IR 45 1 tab PO QAM 11/07/24 History mg-bupropion ER 105 mg biphasic tablet (Auvelity) guanfacine 1 mg tablet,extended 1 mg PO QDAY 11/07/24 11/07/24 History release 24 hr methylphenidate HCl 20 mg 20 mg PO QPM 11/07/24 History capsule,delayed release,ext release sprinkle (Jornay PM) prednisone 20 mg tablet 20 mg PO DIRECTED #30 tab s 11/07/24 11/07/24 Rx vibegron 75 mg tablet (Gemtesa) 75 mg PO QDAY 11/07/24 11/07/24 History Is last menstrual period known: No Post menopausal: Yes Patient : No Have you fallen in the past year?: No Nurse's Note: rash to arms, legs, toes x 2 weeks with intense itching. has tried numerous otcmeds without relief. [facility] Medical History (Updated 11/07/24 @ 08:57 by JOHNATHAN RenteriaC) Contact dermatitis due to poison shruthi Kidney disease HTN (hypertension) Surgical History History of carpal tunnel surgery of right wrist History of tonsillectomy History of bunionectomy of both great toes Hx of cholecystectomy Social History (Updated 11/07/24 @ 08:47 by Lorraine Azevedo) adopted: Yes Smoking Status: Former smoker alcohol intake: current substance use type: does not use HPI HPI Chief Complaint: rash Details: LYNDSAY GOSS, is a 59 F who presents to the office today for HPI: Patient presents today complaining of 2 weeks exposure to poison shruthi. She notesdiffuse vesicular rash over her hands, arms, legs, and feet. She otherwise denies any nausea vomiting fever or any other health complaints. ROS: As noted in HPI Physical Exam: VITALS: Reviewed. GEN: Healthy appearing, well-developed, NAD. PSYCH: AOx3. Normal memory, mood, and affect. LUNGS: Normal respiratory effort. SKIN: Warm, well perfused. Scattered vesicular rash over arms, legs, hands, feet. MSK: Normal gait. NEURO: Ambulating with no limitations. Normal muscle strength and tone. No focaldeficits. Coding Level of Care Code Off vis,new,level 3 Diagnoses Contact dermatitis due to poison shruthi L23.7 Assessment and Plan Assessment and Plan (1) Contact dermatitis due to poison shruhti: Status: Acute Plan: Patient's presentation most consistent with poison shruthi. She was given a 15-day taper of prednisone as noted below. Medications: New prednisone 3 tabs once daily x 5 days then 2 tabs once daily x 5 days then 1 tab once daily x 5 days 20 mg PO DIRECTED 30 tabs 0RF Clinical Quality Measures Falls Risk Screening/Assistive Devices Have you fallen in the past year?: No 11/07/24 0857 <Electronically signed by Raymundo Sher> Date _ Raymundo MOON Cosigner Signature: Date (if applicable) CC: ~ [facility] Work Phone: [phone]) 934-825409-07-2023 Miscellaneous Notes* Telephone Encounter - Margo Irvin MA - 12/16/2022 8:38 AM EDT Left VM instructing patient to return call to receive results. Patient has reviewed results on [employer], will also send letter to listed address today. Margo Irvin MA * Telephone Encounter - Christine Durham MA - 12/15/2022 7:38 PM EDT Left message for pt to call back. Christine Durham MA * Telephone Encounter - Inez Lopez - 12/14/2022 7:05 PM EDT Left message for patient to return call. Inez Lopez * Telephone Encounter - Parrish Azevedo APRN.CNP - 12/14/2022 5:08 PM EDT Please call patient and let her know that her x-ray came back with no acute findings and just to continue the care plan as discussed with provider. documented in this encounterUniversity [facility]als [facility]. [facility]-2023 NoteHNO ID: [id number] Author: Naomie Jiménez RT(R) Service: Radiology Author Type: Technologist Type: Progress Notes Filed: 12/14/2022 4:04 PM Note Text: Radiology Service Progress Note PATIENT NAME: Lyndsay Goss DATE OF SERVICE: December 14, 2022 TIME: 3:52 PM PATIENT IDENTITY VERIFICATION COMPLETED USING TWO (2) IDENTIFIERS: Name and Date of confirmed by patient verbally. FALL SCREENING: Has the patient had 2 falls in the last year or 1 fall with injury or currently using an Ambulatory Assistive Device (Walker, Cane, Wheelchair, Crutches, etc.)? No PATIENT GENDER DATA: Female. status: : No status: NO. PATIENT RELEVANT IMPLANT DATA REVIEWED: Yes RADIOLOGY DEPARTMENT: General X-ray: Exam(s) Completed: Chest X-Ray PERIPHERAL IV DATA: Not applicable SIGNED BY: RT Cindy(R) December 14, 2022 3:52 [facility]09-05-2023 History of Present illness Narrative* Naomie Jiménez RT(R) - 12/14/2022 4:00 PM EDT Radiology Service Progress Note PATIENT NAME: Lyndsay Goss DATE OF SERVICE: December 14, 2022 TIME: 3:52 PM PATIENT IDENTITY VERIFICATION COMPLETED USING TWO (2) IDENTIFIERS: Name and Date of confirmedby patient verbally. FALL SCREENING: Has the patient had 2 falls in the last year or 1 fall with injury or currently using an Ambulatory Assistive Device (Walker, Cane, Wheelchair, Crutches, etc.)? No PATIENT GENDER DATA: Female. status: : No status: NO. PATIENT RELEVANT IMPLANT DATA REVIEWED: Yes RADIOLOGY DEPARTMENT: General X-ray: Exam(s) Completed: Chest X-Ray PERIPHERAL IV DATA: Not applicable SIGNED BY: RT Cindy(R) December 14, 2022 3:52 PM documented in this encounterUniversity Hospitals St. [facility]09-04-2023 NoteHNO ID: [id number] Author: Parrish Azevedo APRN.LEON Service: ? Author Type: Nurse Practitioner Type: Progress Notes Filed: 12/13/2022 9:57 AM Note Text: CC: Patient presents with: Nasal Congestion: drainage, cough, sob x 5 days HPI: Lyndsay Goss is a 57 year old female who presents to the office with complaint of head congestion, cough, nonproductive, and rhinorrhea for a few days. Symptoms are worsening Associated symptoms includes nasal congestion. Denies nausea, vomiting , and diarrhea. Treatments tried include nothing so far. with no relief of symptoms. Sick contacts: unknown. History of asthma, frequent episodes of bronchitis, chronic bronchitis, bronchiectasis or COPD: No Smoker: No Seasonal/environmental allergies: No The ROS is otherwise negative. The patient's pmh, medications, allergies, and past visits are reviewed. PHYSICAL EXAM: BP 118/82 Pulse 70 Temp 36.1 ?C (96.9 ?F) Resp 16 Wt 86.6 kg (191 lb) LMP 09/29/2015 SpO2 100% BMI 32.79 kg/m? General appearance: alert, cooperative, pleasant, in no acute distress Head: Normocephalic Eyes: EOM's intact, conjunctiva pink and moist, no icterus, sclera white, non-injected Ears: Right ear: External ear/canal- Normal, TM - clear with good landmarks. Left ear: External ear/canal- Normal, TM - clear with good landmarks Oropharynx:moist without lesions, No erythema, exudates or tonsillar hypertrophy. Heart: Negative. RRR without obvious murmur, gallop, or rubs. No ectopy. Lungs: clear to auscultation, without rales or wheeze, good air exchange PAST MEDICAL HISTORY Diagnosis Date Abnormal glandular Papanicolaou smear of cervix ASCUS with neg HPV Dysthymic disorder Depression (non-psychotic) Genital herpes HTN (hypertension) Other anxiety states Sleep apnea PAST SURGICAL HISTORY Procedure Laterality Date ABLTJ SOF TISS INF TURBS UNI/BI SUPFC INTRAMURAL Turbinoplasty DELIVERY ONLY , low cervical CHOLECYSTECTOMY 04/2016 COLPOSCOPY CERVIX UPPER/ADJACENT VAGINA 06/14/01 Colposcopy CORRECT BUNION,SIMPLE Bunionectomy/bilateral ENDOMETRIAL BX W/WO ENDOCERVIX BX W/O DILAT SPX INSERTION OF IUD June 27, 2008,07/03/2013 Mirena IUD REMOVAL 10/2015 post removal performed uterine ablation LAPAROSCOPY SURG CHOLECYSTECTOMY 05/12/2016 LIG/TRNSXJ FLP TUBE ABDL/VAG APPR UNI/BI 05/22/97 Tubal ligation SALPINGECTOMY 1984 Ectopic SHOULDER SURGERY HX Left June 2014, December 2014 X2 TONSILLECTOMY PRIMARY/SECONDARY AGE 12/> ALLERGIES Ambien [Zolpidem Tartrate], Ampicillin, Demerol [Meperidine (Pf)], Duracef [Cefadroxil], Tylenol [Acetaminophen], and Vioxx [Rofecoxib] MEDICATIONS escitalopram 20 mg tablet Take 20 mg by mouth once daily. fluticasone propionate(FLONASE 50 MCG/ACTUATION NASAL SPRAY) Two puffs per nostril daily. VALTREX 500 MG TAB Take one(1) tablet daily. ATENOLOL 25 MG TAB Take one(1) tablet daily. busPIRone (BUSPAR) 5 mg tablet 1 tablet Orally three times a day methylphenidate ER 18 mg biphasic tablet Take 18 mg by mouth every morning. hydroCHLOROthiazide 25 mg tablet TAKE 1 TABLET BY MOUTH EVERY DAY IN THE MORNING FOR 30 DAYS SPRAVATO 84 mg (28 mg x 3) nasal spray vibegron (GEMTESA) 75 mg tablet 1 tablet Orally Once a day for 30 day(s) albuterol HFA (PROVENTIL HFA, VENTOLIN HFA) 90 mcg/actuation inhaler Inhale 2 Puffs as instructed every 6 hours as needed for wheezing/shortness of breath. Inhalational Spacing Device 1 Device one time only for 1 dose. benzonatate (TESSALON PERLES) 100 mg capsule Take 1 capsule by mouth three times daily as needed for up to 7 days. predniSONE (DELTASONE) 20 mg tablet Take 2 tablets by mouth once daily for 5 days. melatonin 3 mg Take 3 mg by mouth daily at bedtime. FAMILY HISTORY Adopted: Yes Problem Relation Age of Onset other (adopted) Daughter Social History Tobacco Use Smoking status: Former Smokeless tobacco: Never Tobacco comments: 5 years in college Substance Use Topics Alcohol use: Yes Comment: few drinks per month Drug use: No ASSESSMENT/PLAN: 1. Acute cough - ICD9: 786.2, ICD10: R05.1 (primary diagnosis) - ALBUTEROL SULFATE HFA 90 MCG/ACTUATION AEROSOL INHALER - BENZONATATE 100 MG CAPSULE - PREDNISONE 20 MG TABLET - XR CHEST 2V FRONTAL/LAT 2. URI, acute - ICD9: 465.9, ICD10: J06.9 - COVID AND INFLUENZA A/B AND RSV NAAT, ROUTINE No antibiotics at this time if x-ray is positive please treat accordingly. Differentials viral versus pneumonia. Prescription instructions reviewed with patient as applicable. Potential red flag symptoms discussed with the patient. Reviewed appropriate action plan to take if red flag symptoms occur. Patient agreeable to treatment plan. Parrish Azevedo APRN.[facility]09-04-2023 History of Present illness Narrative* Parrish Azevedo APRN.[facility] - 12/13/2022 9:44 AM EDT CC: Patient presents with: Nasal Congestion: drainage, cough, sob x 5 days HPI: Lyndsay Goss is a 57 year old female who presents to the office with complaint of head congestion,cough, nonproductive, and rhinorrhea for a few days. Symptoms are worsening Associated symptoms includes nasal congestion. Denies nausea, vomiting , and diarrhea. Treatments tried include nothing so far. with no relief of symptoms. Sick contacts: unknown. History of asthma, frequent episodes of bronchitis, chronic bronchitis, bronchiectasis or COPD: No Smoker: No Seasonal/environmental allergies: No The ROS is otherwise negative. The patient's pmh, medications, allergies, and past visits are reviewed. PHYSICAL EXAM: BP 118/82 Pulse 70 Temp 36.1 C (96.9 F) Resp 16 Wt 86.6 kg (191 lb) LMP 09/29/2015 [id number]% BMI 32.79 kg/m General appearance: alert, cooperative, pleasant, in no acute distress Head: Normocephalic Eyes: EOM's intact, conjunctiva pink and moist, no icterus, sclera white, non-injected Ears: Right ear: External ear/canal- Normal, TM - clear with good landmarks. Left ear: External ear/canal- Normal, TM - clear with good landmarks Oropharynx:moist without lesions, No erythema, exudates or tonsillar hypertrophy. Heart: Negative. RRR without obvious murmur, gallop, or rubs. No ectopy. Lungs: clear to auscultation, without rales or wheeze, good air exchange PAST MEDICAL HISTORY Diagnosis Date Abnormal glandular Papanicolaou smear of cervix ASCUS with neg HPV Dysthymic disorder Depression (non-psychotic) Genital herpes HTN (hypertension) Other anxiety states Sleep apnea PAST SURGICAL HISTORY Procedure Laterality Date ABLTJ SOF TISS INF TURBS UNI/BI SUPFC INTRAMURAL Turbinoplasty DELIVERY ONLY , low cervical CHOLECYSTECTOMY 04/2016 COLPOSCOPY CERVIX UPPER/ADJACENT VAGINA 06/14/01 Colposcopy CORRECT BUNION,SIMPLE Bunionectomy/bilateral ENDOMETRIAL BX W/WO ENDOCERVIX BX W/O DILAT SPX INSERTION OF IUD June 27, 2008,07/03/2013 Mirena IUD REMOVAL 10/2015 post removal performed uterine ablation LAPAROSCOPY SURG CHOLECYSTECTOMY 05/12/2016 LIG/TRNSXJ FLP TUBE ABDL/VAG APPR UNI/BI 05/22/97 Tubal ligation SALPINGECTOMY 1984 Ectopic SHOULDER SURGERY HX Left June 2014, December 2014 X2 TONSILLECTOMY PRIMARY/SECONDARY AGE 12/> ALLERGIES Ambien [Zolpidem Tartrate], Ampicillin, Demerol [Meperidine (Pf)], Duracef [Cefadroxil], Tylenol [Acetaminophen], and Vioxx [Rofecoxib] MEDICATIONS escitalopram 20 mg tablet Take 20 mg by mouth once daily. fluticasone propionate(FLONASE 50 MCG/ACTUATION NASAL SPRAY) Two puffs per nostril daily. VALTREX 500 MG TAB Take one(1) tablet daily. ATENOLOL 25 MG TAB Take one(1) tablet daily. busPIRone (BUSPAR) 5 mg tablet 1 tablet Orally three times a day methylphenidate ER 18 mg biphasic tablet Take 18 mg by mouth every morning. hydroCHLOROthiazide 25 mg tablet TAKE 1 TABLET BY MOUTH EVERY DAY IN THE MORNING FOR 30 DAYS SPRAVATO 84 mg (28 mg x 3) nasal spray vibegron (GEMTESA) 75 mg tablet 1 tablet Orally Once a day for 30 day(s) albuterol HFA (PROVENTIL HFA, VENTOLIN HFA) 90 mcg/actuation inhaler Inhale 2 Puffs as instructed every 6 hours as needed for wheezing/shortness of breath. Inhalational Spacing Device 1 Device one time only for 1 dose. benzonatate (TESSALON PERLES) 100 mg capsule Take 1 capsule by mouth three times daily as needed for up to 7 days. predniSONE (DELTASONE) 20 mg tablet Take 2 tablets by mouth once daily for 5 days. melatonin 3 mg Take 3 mg by mouth daily at bedtime. FAMILY HISTORY Adopted: Yes Problem Relation Age of Onset other (adopted) Daughter Social History Tobacco Use Smoking status: Former Smokeless tobacco: Never Tobacco comments: 5 years in college Substance Use Topics Alcohol use: Yes Comment: few drinks per month Drug use: No ASSESSMENT/PLAN: 1. Acute cough - ICD9: 786.2, ICD10: R05.1 (primary diagnosis) - ALBUTEROL SULFATE HFA 90 MCG/ACTUATION AEROSOL INHALER - BENZONATATE 100 MG CAPSULE - PREDNISONE 20 MG TABLET - XR CHEST 2V FRONTAL/LAT 2. URI, acute - ICD9: 465.9, ICD10: J06.9 - COVID & INFLUENZA A/B & RSV NAAT, ROUTINE No antibiotics at this time if x-ray is positive please treat accordingly. Differentials viral versus pneumonia. Prescription instructions reviewed with patient as applicable. Potential red flag symptoms discussed with the patient. Reviewed appropriate action plan to take if red flag symptoms occur. Patient agreeable to treatment plan. Parrish Azevedo APRN.LEON documented in this encounterUniversity Hospitals St. [facility]10-10-2012 History of Past illness Narrative* Problem Noted Date Diagnosed Date Resolved Date Abdominal pain, right lower quadrant 01/19/2012 11/06/2012 Abdominal pain, left lower quadrant 01/19/2012 11/06/2012 documented as of this encounter (statuses as of 12/13/2022) [facility]10-[facility]-2012 History of Past illness Narrative* Problem Noted Date Diagnosed Date Resolved Date Abdominal pain, right lower quadrant 01/19/2012 11/06/2012 Abdominal pain, left lower quadrant 01/19/2012 11/06/2012 documented as of this encounter (statuses as of 12/16/2022) [facility] note No data available for this section [facility] Evaluation note* Diagnosis Onset Date Resolution Status Impingement syndrome of right shoulder acute Shoulder pain acute [facility] Work Phone: Evaluation note* Diagnosis Onset Date Resolution Status Impingement syndrome of right shoulder acute Shoulder pain acute Adhesive capsulitis of right shoulder acute [facility] Work Phone: Evaluation noteNo assessment information available [facility] Work Phone: Evaluation note* Diagnosis Acute cough- Primary URI, acute Acute upper respiratory infections of unspecified site documented [facility] this encounter [facility] Diagnosis Acute cough documented in this encounter [facility] note* Diagnosis Onset Date Resolution Status Admit Date Contact dermatitis due to po warner shruthi acute November 07, 2024 8:37am [facility] Work Phone: Hospital Discharge instructions No data available for this section [facility] Instructions* Name Dates Details Patient Instructions Indication:BMI 33.0-33.9,adult Start:12-Jan-2021 Instruction Type:Provider Instructions for Treatment How to Access Health Informa tion Online using Patient Portal and [employer] Apps Indication:BMI 33.0-33.9,adult Start:12-Jan-2021 Instruction Type:Patient Education Patient Instructions Indication:BMI 33.0-33.9,adult Start:22-Dec-2020 Instruction Type:Provider Instructions for Treatment How to Access Health Informa tion Online using Patient Portal and [employer] Apps Indication:BMI 33.0-33.9,adult Start:22-Dec-2020 Instruction Type:Patient Education Patient Instructions Indication:BMI 33.0-33.9,adult Start:05-Dec-2020 Instruction Type:Provider Instructions for Treatment How to Access Health Informa tion Online using Patient Portal and [employer] Apps Indication:BMI 33.0-33.9,adult Start:05-Dec-2020 Instruction Type:Patient Education Patient Instructions Indication:BMI 34.0-34.9,adult Start:01-May-2020 Instruction Type:Provider Instructions for Treatment How to Access Health Informa tion Online using Patient Portal and [employer] Apps Indication:BMI 34.0-34.9,adult Start:01-May-2020 Instruction Type:Patient Education How to Access Health Informa tion Online using Patient Portal and [employer] Apps Indication:Non-smoker Start:31-Mar-2020 Instruction Type:Patient Education Patient Instructions Indication:Non-smoker Start:31-Mar-2020 Instruction Type:Provider Instructions for Treatment How to access health informa tion online Indication:Non-smoker Start:08-Feb-2020 Instruction Type:Patient Education How to access health informa tion online - Detail Indication:Non-smoker Start:08-Feb-2020 Instruction Type:Patient Education Patient Instructions Indication:Non-smoker Start:08-Feb-2020 Instruction Type:Provider Instructions for Treatment How to access health informa tion online Indication:Non-smoker Start:26-Nov-2019 Instruction Type:Patient Education How to access health informa tion online - Detail Indication:Non-smoker Start:26-Nov-2019 Instruction Type:Patient Education Patient Instructions Indication:Non-smoker Start:26-Nov-2019 Instruction Type:Provider Instructions for Treatment How to access health informa tion online Indication:BMI 35.0-35.9,adult Start:04-Jul-2019 Instruction Type:Patient Education How to access health informa tion online - Detail Indication:BMI 35.0-35.9,adult Start:04-Jul-2019 Instruction Type:Patient Education Patient Instructions Indication:BMI 35.0-35.9,adult Start:04-Jul-2019 Instruction Type:Provider Instructions for Treatment How to access health informa tion online Indication:Anxiety Start:18-Apr-2019 Instruction Type:Patient Education How to access health informa tion online - Detail Indication:Anxiety Start:18-Apr-2019 Instruction Type:Patient Education Patient Instructions Indication:Anxiety Start:18-Apr-2019 Instruction Type:Provider Instructions for Treatment How to access health informa tion online Indication:BMI 35.0-35.9,adult Start:12-Apr-2019 Instruction Type:Patient Education How to access health informa tion online - Detail Indication:BMI 35.0-35.9,adult Start:12-Apr-2019 Instruction Type:Patient Education Patient Instructions Indication:BMI 35.0-35.9,adult Start:12-Apr-2019 Instruction Type:Provider Instructions for Treatment How to access health informa tion online Indication:BMI 36.0-36.9,adult Start:13-Oct-2018 Instruction Type:Patient Education How to access health informa tion online - Detail Indication:BMI 36.0-36.9,adult Start:13-Oct-2018 Instruction Type:Patient Education Patient Instructions Indication:BMI 36.0-36.9,adult Start:13-Oct-2018 Instruction Type:Provider Instructions for Treatment How to access health informa tion online Indication:Current non-smoker Start:14-Jul-2018 Instruction Type:Patient Education How to access health informa tion online - Detail Indication:Current non-smoker Start:14-Jul-2018 Instruction Type:Patient Education Patient Instructions Indication:Current non-smoker Start:14-Jul-2018 Instruction Type:Provider Instructions for Treatment How to access health informa tion online Indication:Current non-smoker Start:22-Jun-2018 Instruction Type:Patient Education How to access health informa tion online - Detail Indication:Current non-smoker Start:22-Jun-2018 Instruction Type:Patient Education Patient Instructions Indication:Sinusitis, bacterial Start:22-Jun-2018 Instruction Type:Provider Instructions for Treatment How to access health informa tion online Indication:Current non-smoker Start:16-Jun-2018 Instruction Type:Patient Education How to access health informa tion online - Detail Indication:Current non-smoker Start:16-Jun-2018 Instruction Type:Patient Education Patient Instructions Indication:Current non-smoker Start:16-Jun-2018 Instruction Type:Provider Instructions for Treatment Patient Instructions Indication:BMI 38.0-38.9,adult Start:23-Jan-2018 Instruction Type:Provider Instructions for Treatment How to access health informa tion online Indication:BMI 38.0-38.9,adult Start:23-Jan-2018 Instruction Type:Patient Education How to access health informa tion online - Detail Indication:BMI 38.0-38.9,adult Start:23-Jan-2018 Instruction Type:Patient Education Patient Instructions Indication:BMI 38.0-38.9,adult Start:23-Jan-2018 Instruction Type:Provider Instructions for Treatment How to access health informa tion online Indication:Current non-smoker Start:21-Nov-2017 Instruction Type:Patient Education How to access health informa tion online - Detail Indication:Current non-smoker Start:21-Nov-2017 Instruction Type:Patient Education Patient Instructions Indication:Current non-smoker Start:21-Nov-2017 Instruction Type:Provider Instructions for Treatment How to access health informa tion online Indication:BMI 38.0-38.9,adult Start:18-Nov-2017 Instruction Type:Patient Education How to access health informa tion online - Detail Indication:BMI 38.0-38.9,adult Start:18-Nov-2017 Instruction Type:Patient Education Patient Instructions Indication:BMI 38.0-38.9,adult Start:18-Nov-2017 Instruction Type:Provider Instructions for Treatment How to access health informa tion online Indication:Current non-smoker Start:27-Oct-2017 Instruction Type:Patient Education How to access health informa tion online - Detail Indication:Current non-smoker Start:27-Oct-2017 Instruction Type:Patient Education Patient Instructions Indication:Current non-smoker Start:27-Oct-2017 Instruction Type:Provider Instructions for Treatment How to access health informa tion online Indication:Current non-smoker Start:20-Jul-2017 Instruction Type:Patient Education How to access health informa tion online - Detail Indication:Current non-smoker Start:20-Jul-2017 Instruction Type:Patient Education Patient Instructions Indication:Current non-smoker Start:20-Jul-2017 Instruction Type:Provider Instructions for Treatment How to access health informa tion online Indication:Current non-smoker Start:17-Jun-2017 Instruction Type:Patient Education How to access health informa tion online - Detail Indication:Current non-smoker Start:17-Jun-2017 Instruction Type:Patient Education Patient Instructions Indication:Current non-smoker Start:17-Jun-2017 Instruction Type:Provider Instructions for Treatment How to access health informa tion online Indication:BMI 37.0-37.9, adult Start:19-Oct-2016 Instruction Type:Patient Education How to access health informa tion online - Detail Indication:Current non-smoker Start:19-Oct-2016 Instruction Type:Patient Education Patient Instructions Indication:Current non-smoker Start:19-Oct-2016 Instruction Type:Provider Instructions for Treatment How to access health informa tion online Indication:Current non-smoker Start:01-Oct-2016 Instruction Type:Patient Education Patient Instructions Indication:Current non-smoker Start:01-Oct-2016 Instruction Type:Provider Instructions for Treatment How to access health informa tion online Indication:BMI 39.0-39.9,adult Start:19-Apr-2016 Instruction Type:Patient Education How to access health informa tion online - Detail Indication:BMI 39.0-39.9,adult Start:19-Apr-2016 Instruction Type:Patient Education Patient Instructions Indication:BMI 39.0-39.9,adult Start:19-Apr-2016 Instruction Type:Provider Instructions for Treatment How to access health informa tion online Indication:BMI 38.0-38.9,adult Start:20-Feb-2016 Instruction Type:Patient Education How to access health informa tion online - Detail Indication:BMI 38.0-38.9,adult Start:20-Feb-2016 Instruction Type:Patient Education Patient Instructions Indication:BMI 38.0-38.9,adult Start:20-Feb-2016 Instruction Type:Provider Instructions for Treatment How to access health informa tion online Indication:Current non-smoker Start:16-Feb-2016 Instruction Type:Patient Education How to access health informa tion online - Detail Indication:Current non-smoker Start:16-Feb-2016 Instruction Type:Patient Education Patient Instructions Indication:Current non-smoker Start:16-Feb-2016 Instruction Type:Provider Instructions for Treatment How to access health informa tion online Indication:Impaired fasting glucose Start:22-Dec-2015 Instruction Type:Patient Education How to access health informa tion online - Detail Indication:Impaired fasting glucose Start:22-Dec-2015 Instruction Type:Patient Education Patient Instructions Indication:Impaired fasting glucose Start:22-Dec-2015 Instruction Type:Provider Instructions for Treatment Patient Instructions Indication:Stress reaction Start:04-Aug-2015 Instruction Type:Provider Instructions for Treatment Patient Instructions Indication:Impaired fasting glucose Start:03-Mar-2015 Instruction Type:Provider Instructions for Treatment How to access health informa tion online Indication:Need for prophylactic vaccination and inoculation against influenza Start:27-Jan-2015 Instruction Type:Patient Education How to access health informa tion online - Detail Indication:Need for prophylactic vaccination and inoculation against influenza Start:27-Jan-2015 Instruction Type:Patient Education Patient Instructions Indication:Need for prophylactic vaccination and inoculation against influenza Start:27-Jan-2015 Instruction Type:Provider Instructions for Treatment Patient Instructions Indication:Obesity, unspecified Start:01-Nov-2014 Instruction Type:Provider Instructions for Treatment Patient Instructions Indication:Obesity, unspecified Start:22-Apr-2014 Instruction Type:Provider Instructions for Treatment Patient Instructions Indication:Near syncope Start:18-Oct-2013 Instruction Type:Provider Instructions for Treatment Patient Instructions Indication:Depressive disorder Start:25-Sep-2013 Instruction Type:Provider Instructions for Treatment instructions Indication:Depressive disorder Start:15-Mar-2013 Instruction Type:Provider Instructions for Treatment Patient Instructions Indication:Depressive disorder Start:23-Jan-2013 Instruction Type:Provider Instructions for Treatment Patient Instructions Indication:Cyst, kidney, acquired Start:17-Feb-2012 Instruction Type:Provider Instructions for Treatment Patient Instructions Indication:Depressive disorder Start:27-Jan-2012 Instruction Type:Provider Instructions for Treatment [facility]; [facility] Work Phone: Instructions* Name Dates Details Patient Instructions Indication:BMI 33.0-33.9,adult Start:12-Jan-2021 Instruction Type:Provider Instructions for Treatment How to Access Health Informa tion Online using Patient Portal and [employer] Apps Indication:BMI 33.0-33.9,adult Start:12-Jan-2021 Instruction Type:Patient Education Patient Instructions Indication:BMI 33.0-33.9,adult Start:22-Dec-2020 Instruction Type:Provider Instructions for Treatment How to Access Health Informa tion Online using Patient Portal and [employer] Apps Indication:BMI 33.0-33.9,adult Start:22-Dec-2020 Instruction Type:Patient Education Patient Instructions Indication:BMI 34.0-34.9,adult Start:01-May-2020 Instruction Type:Provider Instructions for Treatment How to Access Health Informa tion Online using Patient Portal and [employer] Apps Indication:BMI 34.0-34.9,adult Start:01-May-2020 Instruction Type:Patient Education How to Access Health Informa tion Online using Patient Portal and [employer] Apps Indication:Non-smoker Start:31-Mar-2020 Instruction Type:Patient Education Patient Instructions Indication:Non-smoker Start:31-Mar-2020 Instruction Type:Provider Instructions for Treatment How to access health informa tion online Indication:Non-smoker Start:08-Feb-2020 Instruction Type:Patient Education How to access health informa tion online - Detail Indication:Non-smoker Start:08-Feb-2020 Instruction Type:Patient Education Patient Instructions Indication:Non-smoker Start:08-Feb-2020 Instruction Type:Provider Instructions for Treatment How to access health informa tion online Indication:Non-smoker Start:26-Nov-2019 Instruction Type:Patient Education How to access health informa tion online - Detail Indication:Non-smoker Start:26-Nov-2019 Instruction Type:Patient Education Patient Instructions Indication:Non-smoker Start:26-Nov-2019 Instruction Type:Provider Instructions for Treatment How to access health informa tion online Indication:BMI 35.0-35.9,adult Start:04-Jul-2019 Instruction Type:Patient Education How to access health informa tion online - Detail Indication:BMI 35.0-35.9,adult Start:04-Jul-2019 Instruction Type:Patient Education Patient Instructions Indication:BMI 35.0-35.9,adult Start:04-Jul-2019 Instruction Type:Provider Instructions for Treatment How to access health informa tion online Indication:Anxiety Start:18-Apr-2019 Instruction Type:Patient Education How to access health informa tion online - Detail Indication:Anxiety Start:18-Apr-2019 Instruction Type:Patient Education Patient Instructions Indication:Anxiety Start:18-Apr-2019 Instruction Type:Provider Instructions for Treatment How to access health informa tion online Indication:BMI 35.0-35.9,adult Start:12-Apr-2019 Instruction Type:Patient Education How to access health informa tion online - Detail Indication:BMI 35.0-35.9,adult Start:12-Apr-2019 Instruction Type:Patient Education Patient Instructions Indication:BMI 35.0-35.9,adult Start:12-Apr-2019 Instruction Type:Provider Instructions for Treatment How to access health informa tion online Indication:BMI 36.0-36.9,adult Start:13-Oct-2018 Instruction Type:Patient Education How to access health informa tion online - Detail Indication:BMI 36.0-36.9,adult Start:13-Oct-2018 Instruction Type:Patient Education Patient Instructions Indication:BMI 36.0-36.9,adult Start:13-Oct-2018 Instruction Type:Provider Instructions for Treatment How to access health informa tion online Indication:Current non-smoker Start:14-Jul-2018 Instruction Type:Patient Education How to access health informa tion online - Detail Indication:Current non-smoker Start:14-Jul-2018 Instruction Type:Patient Education Patient Instructions Indication:Current non-smoker Start:14-Jul-2018 Instruction Type:Provider Instructions for Treatment How to access health informa tion online Indication:Current non-smoker Start:22-Jun-2018 Instruction Type:Patient Education How to access health informa tion online - Detail Indication:Current non-smoker Start:22-Jun-2018 Instruction Type:Patient Education Patient Instructions Indication:Sinusitis, bacterial Start:22-Jun-2018 Instruction Type:Provider Instructions for Treatment How to access health informa tion online Indication:Current non-smoker Start:16-Jun-2018 Instruction Type:Patient Education How to access health informa tion online - Detail Indication:Current non-smoker Start:16-Jun-2018 Instruction Type:Patient Education Patient Instructions Indication:Current non-smoker Start:16-Jun-2018 Instruction Type:Provider Instructions for Treatment Patient Instructions Indication:BMI 38.0-38.9,adult Start:23-Jan-2018 Instruction Type:Provider Instructions for Treatment How to access health informa tion online Indication:BMI 38.0-38.9,adult Start:23-Jan-2018 Instruction Type:Patient Education How to access health informa tion online - Detail Indication:BMI 38.0-38.9,adult Start:23-Jan-2018 Instruction Type:Patient Education Patient Instructions Indication:BMI 38.0-38.9,adult Start:23-Jan-2018 Instruction Type:Provider Instructions for Treatment How to access health informa tion online Indication:Current non-smoker Start:21-Nov-2017 Instruction Type:Patient Education How to access health informa tion online - Detail Indication:Current non-smoker Start:21-Nov-2017 Instruction Type:Patient Education Patient Instructions Indication:Current non-smoker Start:21-Nov-2017 Instruction Type:Provider Instructions for Treatment How to access health informa tion online Indication:BMI 38.0-38.9,adult Start:18-Nov-2017 Instruction Type:Patient Education How to access health informa tion online - Detail Indication:BMI 38.0-38.9,adult Start:18-Nov-2017 Instruction Type:Patient Education Patient Instructions Indication:BMI 38.0-38.9,adult Start:18-Nov-2017 Instruction Type:Provider Instructions for Treatment How to access health informa tion online Indication:Current non-smoker Start:27-Oct-2017 Instruction Type:Patient Education How to access health informa tion online - Detail Indication:Current non-smoker Start:27-Oct-2017 Instruction Type:Patient Education Patient Instructions Indication:Current non-smoker Start:27-Oct-2017 Instruction Type:Provider Instructions for Treatment How to access health informa tion online Indication:Current non-smoker Start:20-Jul-2017 Instruction Type:Patient Education How to access health informa tion online - Detail Indication:Current non-smoker Start:20-Jul-2017 Instruction Type:Patient Education Patient Instructions Indication:Current non-smoker Start:20-Jul-2017 Instruction Type:Provider Instructions for Treatment How to access health informa tion online Indication:Current non-smoker Start:17-Jun-2017 Instruction Type:Patient Education How to access health informa tion online - Detail Indication:Current non-smoker Start:17-Jun-2017 Instruction Type:Patient Education Patient Instructions Indication:Current non-smoker Start:17-Jun-2017 Instruction Type:Provider Instructions for Treatment How to access health informa tion online Indication:BMI 37.0-37.9, adult Start:19-Oct-2016 Instruction Type:Patient Education How to access health informa tion online - Detail Indication:Current non-smoker Start:19-Oct-2016 Instruction Type:Patient Education Patient Instructions Indication:Current non-smoker Start:19-Oct-2016 Instruction Type:Provider Instructions for Treatment How to access health informa tion online Indication:Current non-smoker Start:01-Oct-2016 Instruction Type:Patient Education Patient Instructions Indication:Current non-smoker Start:01-Oct-2016 Instruction Type:Provider Instructions for Treatment How to access health informa tion online Indication:BMI 39.0-39.9,adult Start:19-Apr-2016 Instruction Type:Patient Education How to access health informa tion online - Detail Indication:BMI 39.0-39.9,adult Start:19-Apr-2016 Instruction Type:Patient Education Patient Instructions Indication:BMI 39.0-39.9,adult Start:19-Apr-2016 Instruction Type:Provider Instructions for Treatment How to access health informa tion online Indication:BMI 38.0-38.9,adult Start:20-Feb-2016 Instruction Type:Patient Education How to access health informa tion online - Detail Indication:BMI 38.0-38.9,adult Start:20-Feb-2016 Instruction Type:Patient Education Patient Instructions Indication:BMI 38.0-38.9,adult Start:20-Feb-2016 Instruction Type:Provider Instructions for Treatment How to access health informa tion online Indication:Current non-smoker Start:16-Feb-2016 Instruction Type:Patient Education How to access health informa tion online - Detail Indication:Current non-smoker Start:16-Feb-2016 Instruction Type:Patient Education Patient Instructions Indication:Current non-smoker Start:16-Feb-2016 Instruction Type:Provider Instructions for Treatment How to access health informa tion online Indication:Impaired fasting glucose Start:22-Dec-2015 Instruction Type:Patient Education How to access health informa tion online - Detail Indication:Impaired fasting glucose Start:22-Dec-2015 Instruction Type:Patient Education Patient Instructions Indication:Impaired fasting glucose Start:22-Dec-2015 Instruction Type:Provider Instructions for Treatment Patient Instructions Indication:Stress reaction Start:04-Aug-2015 Instruction Type:Provider Instructions for Treatment Patient Instructions Indication:Impaired fasting glucose Start:03-Mar-2015 Instruction Type:Provider Instructions for Treatment How to access health informa tion online Indication:Need for prophylactic vaccination and inoculation against influenza Start:27-Jan-2015 Instruction Type:Patient Education How to access health informa tion online - Detail Indication:Need for prophylactic vaccination and inoculation against influenza Start:27-Jan-2015 Instruction Type:Patient Education Patient Instructions Indication:Need for prophylactic vaccination and inoculation against influenza Start:27-Jan-2015 Instruction Type:Provider Instructions for Treatment Patient Instructions Indication:Obesity, unspecified Start:01-Nov-2014 Instruction Type:Provider Instructions for Treatment Patient Instructions Indication:Obesity, unspecified Start:22-Apr-2014 Instruction Type:Provider Instructions for Treatment Patient Instructions Indication:Near syncope Start:18-Oct-2013 Instruction Type:Provider Instructions for Treatment Patient Instructions Indication:Depressive disorder Start:25-Sep-2013 Instruction Type:Provider Instructions for Treatment instructions Indication:Depressive disorder Start:15-Mar-2013 Instruction Type:Provider Instructions for Treatment Patient Instructions Indication:Depressive disorder Start:23-Jan-2013 Instruction Type:Provider Instructions for Treatment Patient Instructions Indication:Cyst, kidney, acquired Start:17-Feb-2012 Instruction Type:Provider Instructions for Treatment Patient Instructions Indication:Depressive disorder Start:27-Jan-2012 Instruction Type:Provider Instructions for Treatment [facility]; [facility] Work Phone: Instructions* Name Dates Details Patient Instructions Indication:Non-smoker Start:07-Dec-2021 Instruction Type:Provider Instructions for Treatment How to Access Health Informa tion Online using Patient Portal and [employer] Apps Indication:Non-smoker Start:07-Dec-2021 Instruction Type:Patient Education Patient Instructions Indication:BMI 33.0-33.9,adult Start:12-Jan-2021 Instruction Type:Provider Instructions for Treatment How to Access Health Informa tion Online using Patient Portal and [employer] Apps Indication:BMI 33.0-33.9,adult Start:12-Jan-2021 Instruction Type:Patient Education Patient Instructions Indication:BMI 33.0-33.9,adult Start:22-Dec-2020 Instruction Type:Provider Instructions for Treatment How to Access Health Informa tion Online using Patient Portal and [employer] Apps Indication:BMI 33.0-33.9,adult Start:22-Dec-2020 Instruction Type:Patient Education Patient Instructions Indication:BMI 34.0-34.9,adult Start:01-May-2020 Instruction Type:Provider Instructions for Treatment How to Access Health Informa tion Online using Patient Portal and [employer] Apps Indication:BMI 34.0-34.9,adult Start:01-May-2020 Instruction Type:Patient Education How to Access Health Informa tion Online using Patient Portal and [employer] Apps Indication:Non-smoker Start:31-Mar-2020 Instruction Type:Patient Education Patient Instructions Indication:Non-smoker Start:31-Mar-2020 Instruction Type:Provider Instructions for Treatment How to access health informa tion online Indication:Non-smoker Start:08-Feb-2020 Instruction Type:Patient Education How to access health informa tion online - Detail Indication:Non-smoker Start:08-Feb-2020 Instruction Type:Patient Education Patient Instructions Indication:Non-smoker Start:08-Feb-2020 Instruction Type:Provider Instructions for Treatment How to access health informa tion online Indication:Non-smoker Start:26-Nov-2019 Instruction Type:Patient Education How to access health informa tion online - Detail Indication:Non-smoker Start:26-Nov-2019 Instruction Type:Patient Education Patient Instructions Indication:Non-smoker Start:26-Nov-2019 Instruction Type:Provider Instructions for Treatment How to access health informa tion online Indication:BMI 35.0-35.9,adult Start:04-Jul-2019 Instruction Type:Patient Education How to access health informa tion online - Detail Indication:BMI 35.0-35.9,adult Start:04-Jul-2019 Instruction Type:Patient Education Patient Instructions Indication:BMI 35.0-35.9,adult Start:04-Jul-2019 Instruction Type:Provider Instructions for Treatment How to access health informa tion online Indication:Anxiety Start:18-Apr-2019 Instruction Type:Patient Education How to access health informa tion online - Detail Indication:Anxiety Start:18-Apr-2019 Instruction Type:Patient Education Patient Instructions Indication:Anxiety Start:18-Apr-2019 Instruction Type:Provider Instructions for Treatment How to access health informa tion online Indication:BMI 35.0-35.9,adult Start:12-Apr-2019 Instruction Type:Patient Education How to access health informa tion online - Detail Indication:BMI 35.0-35.9,adult Start:12-Apr-2019 Instruction Type:Patient Education Patient Instructions Indication:BMI 35.0-35.9,adult Start:12-Apr-2019 Instruction Type:Provider Instructions for Treatment How to access health informa tion online Indication:BMI 36.0-36.9,adult Start:13-Oct-2018 Instruction Type:Patient Education How to access health informa tion online - Detail Indication:BMI 36.0-36.9,adult Start:13-Oct-2018 Instruction Type:Patient Education Patient Instructions Indication:BMI 36.0-36.9,adult Start:13-Oct-2018 Instruction Type:Provider Instructions for Treatment How to access health informa tion online Indication:Current non-smoker Start:14-Jul-2018 Instruction Type:Patient Education How to access health informa tion online - Detail Indication:Current non-smoker Start:14-Jul-2018 Instruction Type:Patient Education Patient Instructions Indication:Current non-smoker Start:14-Jul-2018 Instruction Type:Provider Instructions for Treatment How to access health informa tion online Indication:Current non-smoker Start:22-Jun-2018 Instruction Type:Patient Education How to access health informa tion online - Detail Indication:Current non-smoker Start:22-Jun-2018 Instruction Type:Patient Education Patient Instructions Indication:Sinusitis, bacterial Start:22-Jun-2018 Instruction Type:Provider Instructions for Treatment How to access health informa tion online Indication:Current non-smoker Start:16-Jun-2018 Instruction Type:Patient Education How to access health informa tion online - Detail Indication:Current non-smoker Start:16-Jun-2018 Instruction Type:Patient Education Patient Instructions Indication:Current non-smoker Start:16-Jun-2018 Instruction Type:Provider Instructions for Treatment Patient Instructions Indication:BMI 38.0-38.9,adult Start:23-Jan-2018 Instruction Type:Provider Instructions for Treatment How to access health informa tion online Indication:BMI 38.0-38.9,adult Start:23-Jan-2018 Instruction Type:Patient Education How to access health informa tion online - Detail Indication:BMI 38.0-38.9,adult Start:23-Jan-2018 Instruction Type:Patient Education Patient Instructions Indication:BMI 38.0-38.9,adult Start:23-Jan-2018 Instruction Type:Provider Instructions for Treatment How to access health informa tion online Indication:Current non-smoker Start:21-Nov-2017 Instruction Type:Patient Education How to access health informa tion online - Detail Indication:Current non-smoker Start:21-Nov-2017 Instruction Type:Patient Education Patient Instructions Indication:Current non-smoker Start:21-Nov-2017 Instruction Type:Provider Instructions for Treatment How to access health informa tion online Indication:BMI 38.0-38.9,adult Start:18-Nov-2017 Instruction Type:Patient Education How to access health informa tion online - Detail Indication:BMI 38.0-38.9,adult Start:18-Nov-2017 Instruction Type:Patient Education Patient Instructions Indication:BMI 38.0-38.9,adult Start:18-Nov-2017 Instruction Type:Provider Instructions for Treatment How to access health informa tion online Indication:Current non-smoker Start:27-Oct-2017 Instruction Type:Patient Education How to access health informa tion online - Detail Indication:Current non-smoker Start:27-Oct-2017 Instruction Type:Patient Education Patient Instructions Indication:Current non-smoker Start:27-Oct-2017 Instruction Type:Provider Instructions for Treatment How to access health informa tion online Indication:Current non-smoker Start:20-Jul-2017 Instruction Type:Patient Education How to access health informa tion online - Detail Indication:Current non-smoker Start:20-Jul-2017 Instruction Type:Patient Education Patient Instructions Indication:Current non-smoker Start:20-Jul-2017 Instruction Type:Provider Instructions for Treatment How to access health informa tion online Indication:Current non-smoker Start:17-Jun-2017 Instruction Type:Patient Education How to access health informa tion online - Detail Indication:Current non-smoker Start:17-Jun-2017 Instruction Type:Patient Education Patient Instructions Indication:Current non-smoker Start:17-Jun-2017 Instruction Type:Provider Instructions for Treatment How to access health informa tion online Indication:BMI 37.0-37.9, adult Start:19-Oct-2016 Instruction Type:Patient Education How to access health informa tion online - Detail Indication:Current non-smoker Start:19-Oct-2016 Instruction Type:Patient Education Patient Instructions Indication:Current non-smoker Start:19-Oct-2016 Instruction Type:Provider Instructions for Treatment How to access health informa tion online Indication:Current non-smoker Start:01-Oct-2016 Instruction Type:Patient Education Patient Instructions Indication:Current non-smoker Start:01-Oct-2016 Instruction Type:Provider Instructions for Treatment How to access health informa tion online Indication:BMI 39.0-39.9,adult Start:19-Apr-2016 Instruction Type:Patient Education How to access health informa tion online - Detail Indication:BMI 39.0-39.9,adult Start:19-Apr-2016 Instruction Type:Patient Education Patient Instructions Indication:BMI 39.0-39.9,adult Start:19-Apr-2016 Instruction Type:Provider Instructions for Treatment How to access health informa tion online Indication:BMI 38.0-38.9,adult Start:20-Feb-2016 Instruction Type:Patient Education How to access health informa tion online - Detail Indication:BMI 38.0-38.9,adult Start:20-Feb-2016 Instruction Type:Patient Education Patient Instructions Indication:BMI 38.0-38.9,adult Start:20-Feb-2016 Instruction Type:Provider Instructions for Treatment How to access health informa tion online Indication:Current non-smoker Start:16-Feb-2016 Instruction Type:Patient Education How to access health informa tion online - Detail Indication:Current non-smoker Start:16-Feb-2016 Instruction Type:Patient Education Patient Instructions Indication:Current non-smoker Start:16-Feb-2016 Instruction Type:Provider Instructions for Treatment How to access health informa tion online Indication:Impaired fasting glucose Start:22-Dec-2015 Instruction Type:Patient Education How to access health informa tion online - Detail Indication:Impaired fasting glucose Start:22-Dec-2015 Instruction Type:Patient Education Patient Instructions Indication:Impaired fasting glucose Start:22-Dec-2015 Instruction Type:Provider Instructions for Treatment Patient Instructions Indication:Stress reaction Start:04-Aug-2015 Instruction Type:Provider Instructions for Treatment Patient Instructions Indication:Impaired fasting glucose Start:03-Mar-2015 Instruction Type:Provider Instructions for Treatment How to access health informa tion online Indication:Need for prophylactic vaccination and inoculation against influenza Start:27-Jan-2015 Instruction Type:Patient Education How to access health informa tion online - Detail Indication:Need for prophylactic vaccination and inoculation against influenza Start:27-Jan-2015 Instruction Type:Patient Education Patient Instructions Indication:Need for prophylactic vaccination and inoculation against influenza Start:27-Jan-2015 Instruction Type:Provider Instructions for Treatment Patient Instructions Indication:Obesity, unspecified Start:01-Nov-2014 Instruction Type:Provider Instructions for Treatment Patient Instructions Indication:Obesity, unspecified Start:22-Apr-2014 Instruction Type:Provider Instructions for Treatment Patient Instructions Indication:Near syncope Start:18-Oct-2013 Instruction Type:Provider Instructions for Treatment Patient Instructions Indication:Depressive disorder Start:25-Sep-2013 Instruction Type:Provider Instructions for Treatment instructions Indication:Depressive disorder Start:15-Mar-2013 Instruction Type:Provider Instructions for Treatment Patient Instructions Indication:Depressive disorder Start:23-Jan-2013 Instruction Type:Provider Instructions for Treatment Patient Instructions Indication:Cyst, kidney, acquired Start:17-Feb-2012 Instruction Type:Provider Instructions for Treatment Patient Instructions Indication:Depressive disorder Start:27-Jan-2012 Instruction Type:Provider Instructions for Treatment [facility]; [facility] Work Phone: Instructions* Name Dates Details Patient Instructions Indication:Non-smoker Start:07-Dec-2021 Instruction Type:Provider Instructions for Treatment How to Access Health Informa tion Online using Patient Portal and [employer] Apps Indication:Non-smoker Start:07-Dec-2021 Instruction Type:Patient Education Patient Instructions Indication:BMI 33.0-33.9,adult Start:12-Jan-2021 Instruction Type:Provider Instructions for Treatment How to Access Health Informa tion Online using Patient Portal and [employer] Apps Indication:BMI 33.0-33.9,adult Start:12-Jan-2021 Instruction Type:Patient Education Patient Instructions Indication:BMI 33.0-33.9,adult Start:22-Dec-2020 Instruction Type:Provider Instructions for Treatment How to Access Health Informa tion Online using Patient Portal and [employer] Apps Indication:BMI 33.0-33.9,adult Start:22-Dec-2020 Instruction Type:Patient Education Patient Instructions Indication:BMI 34.0-34.9,adult Start:01-May-2020 Instruction Type:Provider Instructions for Treatment How to Access Health Informa tion Online using Patient Portal and [employer] Apps Indication:BMI 34.0-34.9,adult Start:01-May-2020 Instruction Type:Patient Education How to Access Health Informa tion Online using Patient Portal and [employer] Apps Indication:Non-smoker Start:31-Mar-2020 Instruction Type:Patient Education Patient Instructions Indication:Non-smoker Start:31-Mar-2020 Instruction Type:Provider Instructions for Treatment How to access health informa tion online Indication:Non-smoker Start:08-Feb-2020 Instruction Type:Patient Education How to access health informa tion online - Detail Indication:Non-smoker Start:08-Feb-2020 Instruction Type:Patient Education Patient Instructions Indication:Non-smoker Start:08-Feb-2020 Instruction Type:Provider Instructions for Treatment How to access health informa tion online Indication:Non-smoker Start:26-Nov-2019 Instruction Type:Patient Education How to access health informa tion online - Detail Indication:Non-smoker Start:26-Nov-2019 Instruction Type:Patient Education Patient Instructions Indication:Non-smoker Start:26-Nov-2019 Instruction Type:Provider Instructions for Treatment How to access health informa tion online Indication:BMI 35.0-35.9,adult Start:04-Jul-2019 Instruction Type:Patient Education How to access health informa tion online - Detail Indication:BMI 35.0-35.9,adult Start:04-Jul-2019 Instruction Type:Patient Education Patient Instructions Indication:BMI 35.0-35.9,adult Start:04-Jul-2019 Instruction Type:Provider Instructions for Treatment How to access health informa tion online Indication:Anxiety Start:18-Apr-2019 Instruction Type:Patient Education How to access health informa tion online - Detail Indication:Anxiety Start:18-Apr-2019 Instruction Type:Patient Education Patient Instructions Indication:Anxiety Start:18-Apr-2019 Instruction Type:Provider Instructions for Treatment How to access health informa tion online Indication:BMI 35.0-35.9,adult Start:12-Apr-2019 Instruction Type:Patient Education How to access health informa tion online - Detail Indication:BMI 35.0-35.9,adult Start:12-Apr-2019 Instruction Type:Patient Education Patient Instructions Indication:BMI 35.0-35.9,adult Start:12-Apr-2019 Instruction Type:Provider Instructions for Treatment How to access health informa tion online Indication:BMI 36.0-36.9,adult Start:13-Oct-2018 Instruction Type:Patient Education How to access health informa tion online - Detail Indication:BMI 36.0-36.9,adult Start:13-Oct-2018 Instruction Type:Patient Education Patient Instructions Indication:BMI 36.0-36.9,adult Start:13-Oct-2018 Instruction Type:Provider Instructions for Treatment How to access health informa tion online Indication:Current non-smoker Start:14-Jul-2018 Instruction Type:Patient Education How to access health informa tion online - Detail Indication:Current non-smoker Start:14-Jul-2018 Instruction Type:Patient Education Patient Instructions Indication:Current non-smoker Start:14-Jul-2018 Instruction Type:Provider Instructions for Treatment How to access health informa tion online Indication:Current non-smoker Start:22-Jun-2018 Instruction Type:Patient Education How to access health informa tion online - Detail Indication:Current non-smoker Start:22-Jun-2018 Instruction Type:Patient Education Patient Instructions Indication:Sinusitis, bacterial Start:22-Jun-2018 Instruction Type:Provider Instructions for Treatment How to access health informa tion online Indication:Current non-smoker Start:16-Jun-2018 Instruction Type:Patient Education How to access health informa tion online - Detail Indication:Current non-smoker Start:16-Jun-2018 Instruction Type:Patient Education Patient Instructions Indication:Current non-smoker Start:16-Jun-2018 Instruction Type:Provider Instructions for Treatment Patient Instructions Indication:BMI 38.0-38.9,adult Start:23-Jan-2018 Instruction Type:Provider Instructions for Treatment How to access health informa tion online Indication:BMI 38.0-38.9,adult Start:23-Jan-2018 Instruction Type:Patient Education How to access health informa tion online - Detail Indication:BMI 38.0-38.9,adult Start:23-Jan-2018 Instruction Type:Patient Education Patient Instructions Indication:BMI 38.0-38.9,adult Start:23-Jan-2018 Instruction Type:Provider Instructions for Treatment How to access health informa tion online Indication:Current non-smoker Start:21-Nov-2017 Instruction Type:Patient Education How to access health informa tion online - Detail Indication:Current non-smoker Start:21-Nov-2017 Instruction Type:Patient Education Patient Instructions Indication:Current non-smoker Start:21-Nov-2017 Instruction Type:Provider Instructions for Treatment How to access health informa tion online Indication:BMI 38.0-38.9,adult Start:18-Nov-2017 Instruction Type:Patient Education How to access health informa tion online - Detail Indication:BMI 38.0-38.9,adult Start:18-Nov-2017 Instruction Type:Patient Education Patient Instructions Indication:BMI 38.0-38.9,adult Start:18-Nov-2017 Instruction Type:Provider Instructions for Treatment How to access health informa tion online Indication:Current non-smoker Start:27-Oct-2017 Instruction Type:Patient Education How to access health informa tion online - Detail Indication:Current non-smoker Start:27-Oct-2017 Instruction Type:Patient Education Patient Instructions Indication:Current non-smoker Start:27-Oct-2017 Instruction Type:Provider Instructions for Treatment How to access health informa tion online Indication:Current non-smoker Start:20-Jul-2017 Instruction Type:Patient Education How to access health informa tion online - Detail Indication:Current non-smoker Start:20-Jul-2017 Instruction Type:Patient Education Patient Instructions Indication:Current non-smoker Start:20-Jul-2017 Instruction Type:Provider Instructions for Treatment How to access health informa tion online Indication:Current non-smoker Start:17-Jun-2017 Instruction Type:Patient Education How to access health informa tion online - Detail Indication:Current non-smoker Start:17-Jun-2017 Instruction Type:Patient Education Patient Instructions Indication:Current non-smoker Start:17-Jun-2017 Instruction Type:Provider Instructions for Treatment How to access health informa tion online Indication:BMI 37.0-37.9, adult Start:19-Oct-2016 Instruction Type:Patient Education How to access health informa tion online - Detail Indication:Current non-smoker Start:19-Oct-2016 Instruction Type:Patient Education Patient Instructions Indication:Current non-smoker Start:19-Oct-2016 Instruction Type:Provider Instructions for Treatment How to access health informa tion online Indication:Current non-smoker Start:01-Oct-2016 Instruction Type:Patient Education Patient Instructions Indication:Current non-smoker Start:01-Oct-2016 Instruction Type:Provider Instructions for Treatment How to access health informa tion online Indication:BMI 39.0-39.9,adult Start:19-Apr-2016 Instruction Type:Patient Education How to access health informa tion online - Detail Indication:BMI 39.0-39.9,adult Start:19-Apr-2016 Instruction Type:Patient Education Patient Instructions Indication:BMI 39.0-39.9,adult Start:19-Apr-2016 Instruction Type:Provider Instructions for Treatment How to access health informa tion online Indication:BMI 38.0-38.9,adult Start:20-Feb-2016 Instruction Type:Patient Education How to access health informa tion online - Detail Indication:BMI 38.0-38.9,adult Start:20-Feb-2016 Instruction Type:Patient Education Patient Instructions Indication:BMI 38.0-38.9,adult Start:20-Feb-2016 Instruction Type:Provider Instructions for Treatment How to access health informa tion online Indication:Current non-smoker Start:16-Feb-2016 Instruction Type:Patient Education How to access health informa tion online - Detail Indication:Current non-smoker Start:16-Feb-2016 Instruction Type:Patient Education Patient Instructions Indication:Current non-smoker Start:16-Feb-2016 Instruction Type:Provider Instructions for Treatment How to access health informa tion online Indication:Impaired fasting glucose Start:22-Dec-2015 Instruction Type:Patient Education How to access health informa tion online - Detail Indication:Impaired fasting glucose Start:22-Dec-2015 Instruction Type:Patient Education Patient Instructions Indication:Impaired fasting glucose Start:22-Dec-2015 Instruction Type:Provider Instructions for Treatment Patient Instructions Indication:Stress reaction Start:04-Aug-2015 Instruction Type:Provider Instructions for Treatment Patient Instructions Indication:Impaired fasting glucose Start:03-Mar-2015 Instruction Type:Provider Instructions for Treatment How to access health informa tion online Indication:Need for prophylactic vaccination and inoculation against influenza Start:27-Jan-2015 Instruction Type:Patient Education How to access health informa tion online - Detail Indication:Need for prophylactic vaccination and inoculation against influenza Start:27-Jan-2015 Instruction Type:Patient Education Patient Instructions Indication:Need for prophylactic vaccination and inoculation against influenza Start:27-Jan-2015 Instruction Type:Provider Instructions for Treatment Patient Instructions Indication:Obesity, unspecified Start:01-Nov-2014 Instruction Type:Provider Instructions for Treatment Patient Instructions Indication:Obesity, unspecified Start:22-Apr-2014 Instruction Type:Provider Instructions for Treatment Patient Instructions Indication:Near syncope Start:18-Oct-2013 Instruction Type:Provider Instructions for Treatment Patient Instructions Indication:Depressive disorder Start:25-Sep-2013 Instruction Type:Provider Instructions for Treatment instructions Indication:Depressive disorder Start:15-Mar-2013 Instruction Type:Provider Instructions for Treatment Patient Instructions Indication:Depressive disorder Start:23-Jan-2013 Instruction Type:Provider Instructions for Treatment Patient Instructions Indication:Cyst, kidney, acquired Start:17-Feb-2012 Instruction Type:Provider Instructions for Treatment Patient Instructions Indication:Depressive disorder Start:27-Jan-2012 Instruction Type:Provider Instructions for Treatment [facility]; [facility] Work Phone: Instructions* Name Dates Details Patient Instructions Indication:BMI 33.0-33.9,adult Start:15-Apr-2022 Instruction Type:Provider Instructions for Treatment How to Access Health Informa tion Online using Patient Portal and [employer] Apps Indication:BMI 33.0-33.9,adult Start:15-Apr-2022 Instruction Type:Patient Education Patient Instructions Indication:Non-smoker Start:07-Dec-2021 Instruction Type:Provider Instructions for Treatment How to Access Health Informa tion Online using Patient Portal and [employer] Apps Indication:Non-smoker Start:07-Dec-2021 Instruction Type:Patient Education Patient Instructions Indication:BMI 33.0-33.9,adult Start:12-Jan-2021 Instruction Type:Provider Instructions for Treatment How to Access Health Informa tion Online using Patient Portal and [employer] Apps Indication:BMI 33.0-33.9,adult Start:12-Jan-2021 Instruction Type:Patient Education Patient Instructions Indication:BMI 33.0-33.9,adult Start:22-Dec-2020 Instruction Type:Provider Instructions for Treatment How to Access Health Informa tion Online using Patient Portal and [employer] Apps Indication:BMI 33.0-33.9,adult Start:22-Dec-2020 Instruction Type:Patient Education Patient Instructions Indication:BMI 34.0-34.9,adult Start:01-May-2020 Instruction Type:Provider Instructions for Treatment How to Access Health Informa tion Online using Patient Portal and [employer] Apps Indication:BMI 34.0-34.9,adult Start:01-May-2020 Instruction Type:Patient Education How to Access Health Informa tion Online using Patient Portal and [employer] Apps Indication:Non-smoker Start:31-Mar-2020 Instruction Type:Patient Education Patient Instructions Indication:Non-smoker Start:31-Mar-2020 Instruction Type:Provider Instructions for Treatment How to access health informa tion online Indication:Non-smoker Start:08-Feb-2020 Instruction Type:Patient Education How to access health informa tion online - Detail Indication:Non-smoker Start:08-Feb-2020 Instruction Type:Patient Education Patient Instructions Indication:Non-smoker Start:08-Feb-2020 Instruction Type:Provider Instructions for Treatment How to access health informa tion online Indication:Non-smoker Start:26-Nov-2019 Instruction Type:Patient Education How to access health informa tion online - Detail Indication:Non-smoker Start:26-Nov-2019 Instruction Type:Patient Education Patient Instructions Indication:Non-smoker Start:26-Nov-2019 Instruction Type:Provider Instructions for Treatment How to access health informa tion online Indication:BMI 35.0-35.9,adult Start:04-Jul-2019 Instruction Type:Patient Education How to access health informa tion online - Detail Indication:BMI 35.0-35.9,adult Start:04-Jul-2019 Instruction Type:Patient Education Patient Instructions Indication:BMI 35.0-35.9,adult Start:04-Jul-2019 Instruction Type:Provider Instructions for Treatment How to access health informa tion online Indication:Anxiety Start:18-Apr-2019 Instruction Type:Patient Education How to access health informa tion online - Detail Indication:Anxiety Start:18-Apr-2019 Instruction Type:Patient Education Patient Instructions Indication:Anxiety Start:18-Apr-2019 Instruction Type:Provider Instructions for Treatment How to access health informa tion online Indication:BMI 35.0-35.9,adult Start:12-Apr-2019 Instruction Type:Patient Education How to access health informa tion online - Detail Indication:BMI 35.0-35.9,adult Start:12-Apr-2019 Instruction Type:Patient Education Patient Instructions Indication:BMI 35.0-35.9,adult Start:12-Apr-2019 Instruction Type:Provider Instructions for Treatment How to access health informa tion online Indication:BMI 36.0-36.9,adult Start:13-Oct-2018 Instruction Type:Patient Education How to access health informa tion online - Detail Indication:BMI 36.0-36.9,adult Start:13-Oct-2018 Instruction Type:Patient Education Patient Instructions Indication:BMI 36.0-36.9,adult Start:13-Oct-2018 Instruction Type:Provider Instructions for Treatment How to access health informa tion online Indication:Current non-smoker Start:14-Jul-2018 Instruction Type:Patient Education How to access health informa tion online - Detail Indication:Current non-smoker Start:14-Jul-2018 Instruction Type:Patient Education Patient Instructions Indication:Current non-smoker Start:14-Jul-2018 Instruction Type:Provider Instructions for Treatment How to access health informa tion online Indication:Current non-smoker Start:22-Jun-2018 Instruction Type:Patient Education How to access health informa tion online - Detail Indication:Current non-smoker Start:22-Jun-2018 Instruction Type:Patient Education Patient Instructions Indication:Sinusitis, bacterial Start:22-Jun-2018 Instruction Type:Provider Instructions for Treatment How to access health informa tion online Indication:Current non-smoker Start:16-Jun-2018 Instruction Type:Patient Education How to access health informa tion online - Detail Indication:Current non-smoker Start:16-Jun-2018 Instruction Type:Patient Education Patient Instructions Indication:Current non-smoker Start:16-Jun-2018 Instruction Type:Provider Instructions for Treatment Patient Instructions Indication:BMI 38.0-38.9,adult Start:23-Jan-2018 Instruction Type:Provider Instructions for Treatment How to access health informa tion online Indication:BMI 38.0-38.9,adult Start:23-Jan-2018 Instruction Type:Patient Education How to access health informa tion online - Detail Indication:BMI 38.0-38.9,adult Start:23-Jan-2018 Instruction Type:Patient Education Patient Instructions Indication:BMI 38.0-38.9,adult Start:23-Jan-2018 Instruction Type:Provider Instructions for Treatment How to access health informa tion online Indication:Current non-smoker Start:21-Nov-2017 Instruction Type:Patient Education How to access health informa tion online - Detail Indication:Current non-smoker Start:21-Nov-2017 Instruction Type:Patient Education Patient Instructions Indication:Current non-smoker Start:21-Nov-2017 Instruction Type:Provider Instructions for Treatment How to access health informa tion online Indication:BMI 38.0-38.9,adult Start:18-Nov-2017 Instruction Type:Patient Education How to access health informa tion online - Detail Indication:BMI 38.0-38.9,adult Start:18-Nov-2017 Instruction Type:Patient Education Patient Instructions Indication:BMI 38.0-38.9,adult Start:18-Nov-2017 Instruction Type:Provider Instructions for Treatment How to access health informa tion online Indication:Current non-smoker Start:27-Oct-2017 Instruction Type:Patient Education How to access health informa tion online - Detail Indication:Current non-smoker Start:27-Oct-2017 Instruction Type:Patient Education Patient Instructions Indication:Current non-smoker Start:27-Oct-2017 Instruction Type:Provider Instructions for Treatment How to access health informa tion online Indication:Current non-smoker Start:20-Jul-2017 Instruction Type:Patient Education How to access health informa tion online - Detail Indication:Current non-smoker Start:20-Jul-2017 Instruction Type:Patient Education Patient Instructions Indication:Current non-smoker Start:20-Jul-2017 Instruction Type:Provider Instructions for Treatment How to access health informa tion online Indication:Current non-smoker Start:17-Jun-2017 Instruction Type:Patient Education How to access health informa tion online - Detail Indication:Current non-smoker Start:17-Jun-2017 Instruction Type:Patient Education Patient Instructions Indication:Current non-smoker Start:17-Jun-2017 Instruction Type:Provider Instructions for Treatment How to access health informa tion online Indication:BMI 37.0-37.9, adult Start:19-Oct-2016 Instruction Type:Patient Education How to access health informa tion online - Detail Indication:Current non-smoker Start:19-Oct-2016 Instruction Type:Patient Education Patient Instructions Indication:Current non-smoker Start:19-Oct-2016 Instruction Type:Provider Instructions for Treatment How to access health informa tion online Indication:Current non-smoker Start:01-Oct-2016 Instruction Type:Patient Education Patient Instructions Indication:Current non-smoker Start:01-Oct-2016 Instruction Type:Provider Instructions for Treatment How to access health informa tion online Indication:BMI 39.0-39.9,adult Start:19-Apr-2016 Instruction Type:Patient Education How to access health informa tion online - Detail Indication:BMI 39.0-39.9,adult Start:19-Apr-2016 Instruction Type:Patient Education Patient Instructions Indication:BMI 39.0-39.9,adult Start:19-Apr-2016 Instruction Type:Provider Instructions for Treatment How to access health informa tion online Indication:BMI 38.0-38.9,adult Start:20-Feb-2016 Instruction Type:Patient Education How to access health informa tion online - Detail Indication:BMI 38.0-38.9,adult Start:20-Feb-2016 Instruction Type:Patient Education Patient Instructions Indication:BMI 38.0-38.9,adult Start:20-Feb-2016 Instruction Type:Provider Instructions for Treatment How to access health informa tion online Indication:Current non-smoker Start:16-Feb-2016 Instruction Type:Patient Education How to access health informa tion online - Detail Indication:Current non-smoker Start:16-Feb-2016 Instruction Type:Patient Education Patient Instructions Indication:Current non-smoker Start:16-Feb-2016 Instruction Type:Provider Instructions for Treatment How to access health informa tion online Indication:Impaired fasting glucose Start:22-Dec-2015 Instruction Type:Patient Education How to access health informa tion online - Detail Indication:Impaired fasting glucose Start:22-Dec-2015 Instruction Type:Patient Education Patient Instructions Indication:Impaired fasting glucose Start:22-Dec-2015 Instruction Type:Provider Instructions for Treatment Patient Instructions Indication:Stress reaction Start:04-Aug-2015 Instruction Type:Provider Instructions for Treatment Patient Instructions Indication:Impaired fasting glucose Start:03-Mar-2015 Instruction Type:Provider Instructions for Treatment How to access health informa tion online Indication:Need for prophylactic vaccination and inoculation against influenza Start:27-Jan-2015 Instruction Type:Patient Education How to access health informa tion online - Detail Indication:Need for prophylactic vaccination and inoculation against influenza Start:27-Jan-2015 Instruction Type:Patient Education Patient Instructions Indication:Need for prophylactic vaccination and inoculation against influenza Start:27-Jan-2015 Instruction Type:Provider Instructions for Treatment Patient Instructions Indication:Obesity, unspecified Start:01-Nov-2014 Instruction Type:Provider Instructions for Treatment Patient Instructions Indication:Obesity, unspecified Start:22-Apr-2014 Instruction Type:Provider Instructions for Treatment Patient Instructions Indication:Near syncope Start:18-Oct-2013 Instruction Type:Provider Instructions for Treatment Patient Instructions Indication:Depressive disorder Start:25-Sep-2013 Instruction Type:Provider Instructions for Treatment instructions Indication:Depressive disorder Start:15-Mar-2013 Instruction Type:Provider Instructions for Treatment Patient Instructions Indication:Depressive disorder Start:23-Jan-2013 Instruction Type:Provider Instructions for Treatment Patient Instructions Indication:Cyst, kidney, acquired Start:17-Feb-2012 Instruction Type:Provider Instructions for Treatment Patient Instructions Indication:Depressive disorder Start:27-Jan-2012 Instruction Type:Provider Instructions for Treatment [facility]; [facility] Work Phone: Instructions* Name Dates Details Patient Instructions Indication:BMI 33.0-33.9,adult Start:15-Apr-2022 Instruction Type:Provider Instructions for Treatment How to Access Health Informa tion Online using Patient Portal and [employer] Indication:BMI 33.0-33.9,adult Start:15-Apr-2022 Instruction Type:Patient Education Patient Instructions Indication:Non-smoker Start:07-Dec-2021 Instruction Type:Provider Instructions for Treatment How to Access Health Informa tion Online using Patient Portal and [employer] Indication:Non-smoker Start:07-Dec-2021 Instruction Type:Patient Education Patient Instructions Indication:BMI 33.0-33.9,adult Start:12-Jan-2021 Instruction Type:Provider Instructions for Treatment How to Access Health Informa tion Online using Patient Portal and [employer] Indication:BMI 33.0-33.9,adult Start:12-Jan-2021 Instruction Type:Patient Education Patient Instructions Indication:BMI 33.0-33.9,adult Start:22-Dec-2020 Instruction Type:Provider Instructions for Treatment How to Access Health Informa tion Online using Patient Portal and [employer] Indication:BMI 33.0-33.9,adult Start:22-Dec-2020 Instruction Type:Patient Education Patient Instructions Indication:BMI 34.0-34.9,adult Start:01-May-2020 Instruction Type:Provider Instructions for Treatment How to Access Health Informa tion Online using Patient Portal and [employer] Indication:BMI 34.0-34.9,adult Start:01-May-2020 Instruction Type:Patient Education How to Access Health Informa tion Online using Patient Portal and [employer] Indication:Non-smoker Start:31-Mar-2020 Instruction Type:Patient Education Patient Instructions Indication:Non-smoker Start:31-Mar-2020 Instruction Type:Provider Instructions for Treatment How to access health informa tion online Indication:Non-smoker Start:08-Feb-2020 Instruction Type:Patient Education How to access health informa tion online - Detail Indication:Non-smoker Start:08-Feb-2020 Instruction Type:Patient Education Patient Instructions Indication:Non-smoker Start:08-Feb-2020 Instruction Type:Provider Instructions for Treatment How to access health informa tion online Indication:Non-smoker Start:26-Nov-2019 Instruction Type:Patient Education How to access health informa tion online - Detail Indication:Non-smoker Start:26-Nov-2019 Instruction Type:Patient Education Patient Instructions Indication:Non-smoker Start:26-Nov-2019 Instruction Type:Provider Instructions for Treatment How to access health informa tion online Indication:BMI 35.0-35.9,adult Start:04-Jul-2019 Instruction Type:Patient Education How to access health informa tion online - Detail Indication:BMI 35.0-35.9,adult Start:04-Jul-2019 Instruction Type:Patient Education Patient Instructions Indication:BMI 35.0-35.9,adult Start:04-Jul-2019 Instruction Type:Provider Instructions for Treatment How to access health informa tion online Indication:Anxiety Start:18-Apr-2019 Instruction Type:Patient Education How to access health informa tion online - Detail Indication:Anxiety Start:18-Apr-2019 Instruction Type:Patient Education Patient Instructions Indication:Anxiety Start:18-Apr-2019 Instruction Type:Provider Instructions for Treatment How to access health informa tion online Indication:BMI 35.0-35.9,adult Start:12-Apr-2019 Instruction Type:Patient Education How to access health informa tion online - Detail Indication:BMI 35.0-35.9,adult Start:12-Apr-2019 Instruction Type:Patient Education Patient Instructions Indication:BMI 35.0-35.9,adult Start:12-Apr-2019 Instruction Type:Provider Instructions for Treatment How to access health informa tion online Indication:BMI 36.0-36.9,adult Start:13-Oct-2018 Instruction Type:Patient Education How to access health informa tion online - Detail Indication:BMI 36.0-36.9,adult Start:13-Oct-2018 Instruction Type:Patient Education Patient Instructions Indication:BMI 36.0-36.9,adult Start:13-Oct-2018 Instruction Type:Provider Instructions for Treatment How to access health informa tion online Indication:Current non-smoker Start:14-Jul-2018 Instruction Type:Patient Education How to access health informa tion online - Detail Indication:Current non-smoker Start:14-Jul-2018 Instruction Type:Patient Education Patient Instructions Indication:Current non-smoker Start:14-Jul-2018 Instruction Type:Provider Instructions for Treatment How to access health informa tion online Indication:Current non-smoker Start:22-Jun-2018 Instruction Type:Patient Education How to access health informa tion online - Detail Indication:Current non-smoker Start:22-Jun-2018 Instruction Type:Patient Education Patient Instructions Indication:Sinusitis, bacterial Start:22-Jun-2018 Instruction Type:Provider Instructions for Treatment How to access health informa tion online Indication:Current non-smoker Start:16-Jun-2018 Instruction Type:Patient Education How to access health informa tion online - Detail Indication:Current non-smoker Start:16-Jun-2018 Instruction Type:Patient Education Patient Instructions Indication:Current non-smoker Start:16-Jun-2018 Instruction Type:Provider Instructions for Treatment Patient Instructions Indication:BMI 38.0-38.9,adult Start:23-Jan-2018 Instruction Type:Provider Instructions for Treatment How to access health informa tion online Indication:BMI 38.0-38.9,adult Start:23-Jan-2018 Instruction Type:Patient Education How to access health informa tion online - Detail Indication:BMI 38.0-38.9,adult Start:23-Jan-2018 Instruction Type:Patient Education Patient Instructions Indication:BMI 38.0-38.9,adult Start:23-Jan-2018 Instruction Type:Provider Instructions for Treatment How to access health informa tion online Indication:Current non-smoker Start:21-Nov-2017 Instruction Type:Patient Education How to access health informa tion online - Detail Indication:Current non-smoker Start:21-Nov-2017 Instruction Type:Patient Education Patient Instructions Indication:Current non-smoker Start:21-Nov-2017 Instruction Type:Provider Instructions for Treatment How to access health informa tion online Indication:BMI 38.0-38.9,adult Start:18-Nov-2017 Instruction Type:Patient Education How to access health informa tion online - Detail Indication:BMI 38.0-38.9,adult Start:18-Nov-2017 Instruction Type:Patient Education Patient Instructions Indication:BMI 38.0-38.9,adult Start:18-Nov-2017 Instruction Type:Provider Instructions for Treatment How to access health informa tion online Indication:Current non-smoker Start:27-Oct-2017 Instruction Type:Patient Education How to access health informa tion online - Detail Indication:Current non-smoker Start:27-Oct-2017 Instruction Type:Patient Education Patient Instructions Indication:Current non-smoker Start:27-Oct-2017 Instruction Type:Provider Instructions for Treatment How to access health informa tion online Indication:Current non-smoker Start:20-Jul-2017 Instruction Type:Patient Education How to access health informa tion online - Detail Indication:Current non-smoker Start:20-Jul-2017 Instruction Type:Patient Education Patient Instructions Indication:Current non-smoker Start:20-Jul-2017 Instruction Type:Provider Instructions for Treatment How to access health informa tion online Indication:Current non-smoker Start:17-Jun-2017 Instruction Type:Patient Education How to access health informa tion online - Detail Indication:Current non-smoker Start:17-Jun-2017 Instruction Type:Patient Education Patient Instructions Indication:Current non-smoker Start:17-Jun-2017 Instruction Type:Provider Instructions for Treatment How to access health informa tion online Indication:BMI 37.0-37.9, adult Start:19-Oct-2016 Instruction Type:Patient Education How to access health informa tion online - Detail Indication:Current non-smoker Start:19-Oct-2016 Instruction Type:Patient Education Patient Instructions Indication:Current non-smoker Start:19-Oct-2016 Instruction Type:Provider Instructions for Treatment How to access health informa tion online Indication:Current non-smoker Start:01-Oct-2016 Instruction Type:Patient Education Patient Instructions Indication:Current non-smoker Start:01-Oct-2016 Instruction Type:Provider Instructions for Treatment How to access health informa tion online Indication:BMI 39.0-39.9,adult Start:19-Apr-2016 Instruction Type:Patient Education How to access health informa tion online - Detail Indication:BMI 39.0-39.9,adult Start:19-Apr-2016 Instruction Type:Patient Education Patient Instructions Indication:BMI 39.0-39.9,adult Start:19-Apr-2016 Instruction Type:Provider Instructions for Treatment How to access health informa tion online Indication:BMI 38.0-38.9,adult Start:20-Feb-2016 Instruction Type:Patient Education How to access health informa tion online - Detail Indication:BMI 38.0-38.9,adult Start:20-Feb-2016 Instruction Type:Patient Education Patient Instructions Indication:BMI 38.0-38.9,adult Start:20-Feb-2016 Instruction Type:Provider Instructions for Treatment How to access health informa [employer] online Indication:Current non-smoker Start:16-Feb-2016 Instruction Type:Patient Education How to access health informa tion online - Detail Indication:Current non-smoker Start:16-Feb-2016 Instruction Type:Patient Education Patient Instructions Indication:Current non-smoker Start:16-Feb-2016 Instruction Type:Provider Instructions for Treatment How to access health informa [employer] online Indication:Impaired fasting glucose Start:22-Dec-2015 Instruction Type:Patient Education How to access health informa tion online - Detail Indication:Impaired fasting glucose Start:22-Dec-2015 Instruction Type:Patient Education Patient Instructions Indication:Impaired fasting glucose Start:22-Dec-2015 Instruction Type:Provider Instructions for Treatment Patient Instructions Indication:Stress reaction Start:04-Aug-2015 Instruction Type:Provider Instructions for Treatment Patient Instructions Indication:Impaired fasting glucose Start:03-Mar-2015 Instruction Type:Provider Instructions for Treatment How to access health informa [employer] Indication:Need for prophylactic vaccination and inoculation against influenza Start:27-Jan-2015 Instruction Type:Patient Education How to access health informa tion online - Detail Indication:Need for prophylactic vaccination and inoculation against influenza Start:27-Jan-2015 Instruction Type:Patient Education Patient Instructions Indication:Need for prophylactic vaccination and inoculation against influenza Start:27-Jan-2015 Instruction Type:Provider Instructions for Treatment Patient Instructions Indication:Obesity, unspecified Start:01-Nov-2014 Instruction Type:Provider Instructions for Treatment Patient Instructions Indication:Obesity, unspecified Start:22-Apr-2014 Instruction Type:Provider Instructions for Treatment Patient Instructions Indication:Near syncope Start:18-Oct-2013 Instruction Type:Provider Instructions for Treatment Patient Instructions Indication:Depressive disorder Start:25-Sep-2013 Instruction Type:Provider Instructions for Treatment instructions Indication:Depressive disorder Start:15-Mar-2013 Instruction Type:Provider Instructions for Treatment Patient Instructions Indication:Depressive disorder Start:23-Jan-2013 Instruction Type:Provider Instructions for Treatment Patient Instructions Indication:Cyst, kidney, acquired Start:17-Feb-2012 Instruction Type:Provider Instructions for Treatment Patient Instructions Indication:Depressive disorder Start:27-Jan-2012 Instruction Type:Provider Instructions for Treatment [facility]; [facility] Work Phone: Instructions* Name Dates Details Patient Instructions Indication:BMI 33.0-33.9,adult Start:15-Apr-2022 Instruction Type:Provider Instructions for Treatment How to Access Health Informa tion Online using Patient Portal and [employer] Indication:BMI 33.0-33.9,adult Start:15-Apr-2022 Instruction Type:Patient Education Patient Instructions Indication:Non-smoker Start:07-Dec-2021 Instruction Type:Provider Instructions for Treatment How to Access Health Informa tion Online using Patient Portal and [employer] Indication:Non-smoker Start:07-Dec-2021 Instruction Type:Patient Education Patient Instructions Indication:BMI 33.0-33.9,adult Start:12-Jan-2021 Instruction Type:Provider Instructions for Treatment How to Access Health Informa tion Online using Patient Portal and [employer] Indication:BMI 33.0-33.9,adult Start:12-Jan-2021 Instruction Type:Patient Education Patient Instructions Indication:BMI 33.0-33.9,adult Start:22-Dec-2020 Instruction Type:Provider Instructions for Treatment How to Access Health Informa tion Online using Patient Portal and [employer] Indication:BMI 33.0-33.9,adult Start:22-Dec-2020 Instruction Type:Patient Education Patient Instructions Indication:BMI 34.0-34.9,adult Start:01-May-2020 Instruction Type:Provider Instructions for Treatment How to Access Health Informa tion Online using Patient Portal and [employer] Indication:BMI 34.0-34.9,adult Start:01-May-2020 Instruction Type:Patient Education How to Access Health Informa tion Online using Patient Portal and [employer] Indication:Non-smoker Start:31-Mar-2020 Instruction Type:Patient Education Patient Instructions Indication:Non-smoker Start:31-Mar-2020 Instruction Type:Provider Instructions for Treatment How to access health informa tion online Indication:Non-smoker Start:08-Feb-2020 Instruction Type:Patient Education How to access health informa tion online - Detail Indication:Non-smoker Start:08-Feb-2020 Instruction Type:Patient Education Patient Instructions Indication:Non-smoker Start:08-Feb-2020 Instruction Type:Provider Instructions for Treatment How to access health informa tion online Indication:Non-smoker Start:26-Nov-2019 Instruction Type:Patient Education How to access health informa tion online - Detail Indication:Non-smoker Start:26-Nov-2019 Instruction Type:Patient Education Patient Instructions Indication:Non-smoker Start:26-Nov-2019 Instruction Type:Provider Instructions for Treatment How to access health informa tion online Indication:BMI 35.0-35.9,adult Start:04-Jul-2019 Instruction Type:Patient Education How to access health informa tion online - Detail Indication:BMI 35.0-35.9,adult Start:04-Jul-2019 Instruction Type:Patient Education Patient Instructions Indication:BMI 35.0-35.9,adult Start:04-Jul-2019 Instruction Type:Provider Instructions for Treatment How to access health informa tion online Indication:Anxiety Start:18-Apr-2019 Instruction Type:Patient Education How to access health informa tion online - Detail Indication:Anxiety Start:18-Apr-2019 Instruction Type:Patient Education Patient Instructions Indication:Anxiety Start:18-Apr-2019 Instruction Type:Provider Instructions for Treatment How to access health informa tion online Indication:BMI 35.0-35.9,adult Start:12-Apr-2019 Instruction Type:Patient Education How to access health informa tion online - Detail Indication:BMI 35.0-35.9,adult Start:12-Apr-2019 Instruction Type:Patient Education Patient Instructions Indication:BMI 35.0-35.9,adult Start:12-Apr-2019 Instruction Type:Provider Instructions for Treatment How to access health informa tion online Indication:BMI 36.0-36.9,adult Start:13-Oct-2018 Instruction Type:Patient Education How to access health informa tion online - Detail Indication:BMI 36.0-36.9,adult Start:13-Oct-2018 Instruction Type:Patient Education Patient Instructions Indication:BMI 36.0-36.9,adult Start:13-Oct-2018 Instruction Type:Provider Instructions for Treatment How to access health informa tion online Indication:Current non-smoker Start:14-Jul-2018 Instruction Type:Patient Education How to access health informa tion online - Detail Indication:Current non-smoker Start:14-Jul-2018 Instruction Type:Patient Education Patient Instructions Indication:Current non-smoker Start:14-Jul-2018 Instruction Type:Provider Instructions for Treatment How to access health informa tion online Indication:Current non-smoker Start:22-Jun-2018 Instruction Type:Patient Education How to access health informa tion online - Detail Indication:Current non-smoker Start:22-Jun-2018 Instruction Type:Patient Education Patient Instructions Indication:Sinusitis, bacterial Start:22-Jun-2018 Instruction Type:Provider Instructions for Treatment How to access health informa tion online Indication:Current non-smoker Start:16-Jun-2018 Instruction Type:Patient Education How to access health informa tion online - Detail Indication:Current non-smoker Start:16-Jun-2018 Instruction Type:Patient Education Patient Instructions Indication:Current non-smoker Start:16-Jun-2018 Instruction Type:Provider Instructions for Treatment Patient Instructions Indication:BMI 38.0-38.9,adult Start:23-Jan-2018 Instruction Type:Provider Instructions for Treatment How to access health informa tion online Indication:BMI 38.0-38.9,adult Start:23-Jan-2018 Instruction Type:Patient Education How to access health informa tion online - Detail Indication:BMI 38.0-38.9,adult Start:23-Jan-2018 Instruction Type:Patient Education Patient Instructions Indication:BMI 38.0-38.9,adult Start:23-Jan-2018 Instruction Type:Provider Instructions for Treatment How to access health informa tion online Indication:Current non-smoker Start:21-Nov-2017 Instruction Type:Patient Education How to access health informa tion online - Detail Indication:Current non-smoker Start:21-Nov-2017 Instruction Type:Patient Education Patient Instructions Indication:Current non-smoker Start:21-Nov-2017 Instruction Type:Provider Instructions for Treatment How to access health informa tion online Indication:BMI 38.0-38.9,adult Start:18-Nov-2017 Instruction Type:Patient Education How to access health informa tion online - Detail Indication:BMI 38.0-38.9,adult Start:18-Nov-2017 Instruction Type:Patient Education Patient Instructions Indication:BMI 38.0-38.9,adult Start:18-Nov-2017 Instruction Type:Provider Instructions for Treatment How to access health informa tion online Indication:Current non-smoker Start:27-Oct-2017 Instruction Type:Patient Education How to access health informa tion online - Detail Indication:Current non-smoker Start:27-Oct-2017 Instruction Type:Patient Education Patient Instructions Indication:Current non-smoker Start:27-Oct-2017 Instruction Type:Provider Instructions for Treatment How to access health informa tion online Indication:Current non-smoker Start:20-Jul-2017 Instruction Type:Patient Education How to access health informa tion online - Detail Indication:Current non-smoker Start:20-Jul-2017 Instruction Type:Patient Education Patient Instructions Indication:Current non-smoker Start:20-Jul-2017 Instruction Type:Provider Instructions for Treatment How to access health informa tion online Indication:Current non-smoker Start:17-Jun-2017 Instruction Type:Patient Education How to access health informa tion online - Detail Indication:Current non-smoker Start:17-Jun-2017 Instruction Type:Patient Education Patient Instructions Indication:Current non-smoker Start:17-Jun-2017 Instruction Type:Provider Instructions for Treatment How to access health informa tion online Indication:BMI 37.0-37.9, adult Start:19-Oct-2016 Instruction Type:Patient Education How to access health informa tion online - Detail Indication:Current non-smoker Start:19-Oct-2016 Instruction Type:Patient Education Patient Instructions Indication:Current non-smoker Start:19-Oct-2016 Instruction Type:Provider Instructions for Treatment How to access health informa tion online Indication:Current non-smoker Start:01-Oct-2016 Instruction Type:Patient Education Patient Instructions Indication:Current non-smoker Start:01-Oct-2016 Instruction Type:Provider Instructions for Treatment How to access health informa tion online Indication:BMI 39.0-39.9,adult Start:19-Apr-2016 Instruction Type:Patient Education How to access health informa tion online - Detail Indication:BMI 39.0-39.9,adult Start:19-Apr-2016 Instruction Type:Patient Education Patient Instructions Indication:BMI 39.0-39.9,adult Start:19-Apr-2016 Instruction Type:Provider Instructions for Treatment How to access health informa tion online Indication:BMI 38.0-38.9,adult Start:20-Feb-2016 Instruction Type:Patient Education How to access health informa tion online - Detail Indication:BMI 38.0-38.9,adult Start:20-Feb-2016 Instruction Type:Patient Education Patient Instructions Indication:BMI 38.0-38.9,adult Start:20-Feb-2016 Instruction Type:Provider Instructions for Treatment How to access health informa [employer] online Indication:Current non-smoker Start:16-Feb-2016 Instruction Type:Patient Education How to access health informa tion online - Detail Indication:Current non-smoker Start:16-Feb-2016 Instruction Type:Patient Education Patient Instructions Indication:Current non-smoker Start:16-Feb-2016 Instruction Type:Provider Instructions for Treatment How to access health informa tion online Indication:Impaired fasting glucose Start:22-Dec-2015 Instruction Type:Patient Education How to access health informa tion online - Detail Indication:Impaired fasting glucose Start:22-Dec-2015 Instruction Type:Patient Education Patient Instructions Indication:Impaired fasting glucose Start:22-Dec-2015 Instruction Type:Provider Instructions for Treatment Patient Instructions Indication:Stress reaction Start:04-Aug-2015 Instruction Type:Provider Instructions for Treatment Patient Instructions Indication:Impaired fasting glucose Start:03-Mar-2015 Instruction Type:Provider Instructions for Treatment How to access health informa tion online Indication:Need for prophylactic vaccination and inoculation against influenza Start:27-Jan-2015 Instruction Type:Patient Education How to access health informa tion online - Detail Indication:Need for prophylactic vaccination and inoculation against influenza Start:27-Jan-2015 Instruction Type:Patient Education Patient Instructions Indication:Need for prophylactic vaccination and inoculation against influenza Start:27-Jan-2015 Instruction Type:Provider Instructions for Treatment Patient Instructions Indication:Obesity, unspecified Start:01-Nov-2014 Instruction Type:Provider Instructions for Treatment Patient Instructions Indication:Obesity, unspecified Start:22-Apr-2014 Instruction Type:Provider Instructions for Treatment Patient Instructions Indication:Near syncope Start:18-Oct-2013 Instruction Type:Provider Instructions for Treatment Patient Instructions Indication:Depressive disorder Start:25-Sep-2013 Instruction Type:Provider Instructions for Treatment instructions Indication:Depressive disorder Start:15-Mar-2013 Instruction Type:Provider Instructions for Treatment Patient Instructions Indication:Depressive disorder Start:23-Jan-2013 Instruction Type:Provider Instructions for Treatment Patient Instructions Indication:Cyst, kidney, acquired Start:17-Feb-2012 Instruction Type:Provider Instructions for Treatment Patient Instructions Indication:Depressive disorder Start:27-Jan-2012 Instruction Type:Provider Instructions for Treatment [facility]; [facility] Work Phone: Instructions* Name Dates Details Patient Instructions Indication:BMI 33.0-33.9,adult Start:15-Apr-2022 Instruction Type:Provider Instructions for Treatment How to Access Health Informa tion Online using Patient Portal and [employer] Indication:BMI 33.0-33.9,adult Start:15-Apr-2022 Instruction Type:Patient Education Patient Instructions Indication:Non-smoker Start:07-Dec-2021 Instruction Type:Provider Instructions for Treatment How to Access Health Informa tion Online using Patient Portal and [employer] Indication:Non-smoker Start:07-Dec-2021 Instruction Type:Patient Education Patient Instructions Indication:BMI 33.0-33.9,adult Start:12-Jan-2021 Instruction Type:Provider Instructions for Treatment How to Access Health Informa tion Online using Patient Portal and [employer] Indication:BMI 33.0-33.9,adult Start:12-Jan-2021 Instruction Type:Patient Education Patient Instructions Indication:BMI 33.0-33.9,adult Start:22-Dec-2020 Instruction Type:Provider Instructions for Treatment How to Access Health Informa tion Online using Patient Portal and [employer] Indication:BMI 33.0-33.9,adult Start:22-Dec-2020 Instruction Type:Patient Education Patient Instructions Indication:BMI 34.0-34.9,adult Start:01-May-2020 Instruction Type:Provider Instructions for Treatment How to Access Health Informa tion Online using Patient Portal and [employer] Indication:BMI 34.0-34.9,adult Start:01-May-2020 Instruction Type:Patient Education How to Access Health Informa tion Online using Patient Portal and [employer] Indication:Non-smoker Start:31-Mar-2020 Instruction Type:Patient Education Patient Instructions Indication:Non-smoker Start:31-Mar-2020 Instruction Type:Provider Instructions for Treatment How to access health informa tion online Indication:Non-smoker Start:08-Feb-2020 Instruction Type:Patient Education How to access health informa tion online - Detail Indication:Non-smoker Start:08-Feb-2020 Instruction Type:Patient Education Patient Instructions Indication:Non-smoker Start:08-Feb-2020 Instruction Type:Provider Instructions for Treatment How to access health informa tion online Indication:Non-smoker Start:26-Nov-2019 Instruction Type:Patient Education How to access health informa tion online - Detail Indication:Non-smoker Start:26-Nov-2019 Instruction Type:Patient Education Patient Instructions Indication:Non-smoker Start:26-Nov-2019 Instruction Type:Provider Instructions for Treatment How to access health informa tion online Indication:BMI 35.0-35.9,adult Start:04-Jul-2019 Instruction Type:Patient Education How to access health informa tion online - Detail Indication:BMI 35.0-35.9,adult Start:04-Jul-2019 Instruction Type:Patient Education Patient Instructions Indication:BMI 35.0-35.9,adult Start:04-Jul-2019 Instruction Type:Provider Instructions for Treatment How to access health informa tion online Indication:Anxiety Start:18-Apr-2019 Instruction Type:Patient Education How to access health informa tion online - Detail Indication:Anxiety Start:18-Apr-2019 Instruction Type:Patient Education Patient Instructions Indication:Anxiety Start:18-Apr-2019 Instruction Type:Provider Instructions for Treatment How to access health informa tion online Indication:BMI 35.0-35.9,adult Start:12-Apr-2019 Instruction Type:Patient Education How to access health informa tion online - Detail Indication:BMI 35.0-35.9,adult Start:12-Apr-2019 Instruction Type:Patient Education Patient Instructions Indication:BMI 35.0-35.9,adult Start:12-Apr-2019 Instruction Type:Provider Instructions for Treatment How to access health informa tion online Indication:BMI 36.0-36.9,adult Start:13-Oct-2018 Instruction Type:Patient Education How to access health informa tion online - Detail Indication:BMI 36.0-36.9,adult Start:13-Oct-2018 Instruction Type:Patient Education Patient Instructions Indication:BMI 36.0-36.9,adult Start:13-Oct-2018 Instruction Type:Provider Instructions for Treatment How to access health informa tion online Indication:Current non-smoker Start:14-Jul-2018 Instruction Type:Patient Education How to access health informa tion online - Detail Indication:Current non-smoker Start:14-Jul-2018 Instruction Type:Patient Education Patient Instructions Indication:Current non-smoker Start:14-Jul-2018 Instruction Type:Provider Instructions for Treatment How to access health informa tion online Indication:Current non-smoker Start:22-Jun-2018 Instruction Type:Patient Education How to access health informa tion online - Detail Indication:Current non-smoker Start:22-Jun-2018 Instruction Type:Patient Education Patient Instructions Indication:Sinusitis, bacterial Start:22-Jun-2018 Instruction Type:Provider Instructions for Treatment How to access health informa tion online Indication:Current non-smoker Start:16-Jun-2018 Instruction Type:Patient Education How to access health informa tion online - Detail Indication:Current non-smoker Start:16-Jun-2018 Instruction Type:Patient Education Patient Instructions Indication:Current non-smoker Start:16-Jun-2018 Instruction Type:Provider Instructions for Treatment Patient Instructions Indication:BMI 38.0-38.9,adult Start:23-Jan-2018 Instruction Type:Provider Instructions for Treatment How to access health informa tion online Indication:BMI 38.0-38.9,adult Start:23-Jan-2018 Instruction Type:Patient Education How to access health informa tion online - Detail Indication:BMI 38.0-38.9,adult Start:23-Jan-2018 Instruction Type:Patient Education Patient Instructions Indication:BMI 38.0-38.9,adult Start:23-Jan-2018 Instruction Type:Provider Instructions for Treatment How to access health informa tion online Indication:Current non-smoker Start:21-Nov-2017 Instruction Type:Patient Education How to access health informa tion online - Detail Indication:Current non-smoker Start:21-Nov-2017 Instruction Type:Patient Education Patient Instructions Indication:Current non-smoker Start:21-Nov-2017 Instruction Type:Provider Instructions for Treatment How to access health informa tion online Indication:BMI 38.0-38.9,adult Start:18-Nov-2017 Instruction Type:Patient Education How to access health informa tion online - Detail Indication:BMI 38.0-38.9,adult Start:18-Nov-2017 Instruction Type:Patient Education Patient Instructions Indication:BMI 38.0-38.9,adult Start:18-Nov-2017 Instruction Type:Provider Instructions for Treatment How to access health informa tion online Indication:Current non-smoker Start:27-Oct-2017 Instruction Type:Patient Education How to access health informa tion online - Detail Indication:Current non-smoker Start:27-Oct-2017 Instruction Type:Patient Education Patient Instructions Indication:Current non-smoker Start:27-Oct-2017 Instruction Type:Provider Instructions for Treatment How to access health informa tion online Indication:Current non-smoker Start:20-Jul-2017 Instruction Type:Patient Education How to access health informa tion online - Detail Indication:Current non-smoker Start:20-Jul-2017 Instruction Type:Patient Education Patient Instructions Indication:Current non-smoker Start:20-Jul-2017 Instruction Type:Provider Instructions for Treatment How to access health informa tion online Indication:Current non-smoker Start:17-Jun-2017 Instruction Type:Patient Education How to access health informa tion online - Detail Indication:Current non-smoker Start:17-Jun-2017 Instruction Type:Patient Education Patient Instructions Indication:Current non-smoker Start:17-Jun-2017 Instruction Type:Provider Instructions for Treatment How to access health informa tion online Indication:BMI 37.0-37.9, adult Start:19-Oct-2016 Instruction Type:Patient Education How to access health informa tion online - Detail Indication:Current non-smoker Start:19-Oct-2016 Instruction Type:Patient Education Patient Instructions Indication:Current non-smoker Start:19-Oct-2016 Instruction Type:Provider Instructions for Treatment How to access health informa tion online Indication:Current non-smoker Start:01-Oct-2016 Instruction Type:Patient Education Patient Instructions Indication:Current non-smoker Start:01-Oct-2016 Instruction Type:Provider Instructions for Treatment How to access health informa tion online Indication:BMI 39.0-39.9,adult Start:19-Apr-2016 Instruction Type:Patient Education How to access health informa tion online - Detail Indication:BMI 39.0-39.9,adult Start:19-Apr-2016 Instruction Type:Patient Education Patient Instructions Indication:BMI 39.0-39.9,adult Start:19-Apr-2016 Instruction Type:Provider Instructions for Treatment How to access health informa tion online Indication:BMI 38.0-38.9,adult Start:20-Feb-2016 Instruction Type:Patient Education How to access health informa tion online - Detail Indication:BMI 38.0-38.9,adult Start:20-Feb-2016 Instruction Type:Patient Education Patient Instructions Indication:BMI 38.0-38.9,adult Start:20-Feb-2016 Instruction Type:Provider Instructions for Treatment How to access health informa tion online Indication:Current non-smoker Start:16-Feb-2016 Instruction Type:Patient Education How to access health informa tion online - Detail Indication:Current non-smoker Start:16-Feb-2016 Instruction Type:Patient Education Patient Instructions Indication:Current non-smoker Start:16-Feb-2016 Instruction Type:Provider Instructions for Treatment How to access health informa tion online Indication:Impaired fasting glucose Start:22-Dec-2015 Instruction Type:Patient Education How to access health informa tion online - Detail Indication:Impaired fasting glucose Start:22-Dec-2015 Instruction Type:Patient Education Patient Instructions Indication:Impaired fasting glucose Start:22-Dec-2015 Instruction Type:Provider Instructions for Treatment Patient Instructions Indication:Stress reaction Start:04-Aug-2015 Instruction Type:Provider Instructions for Treatment Patient Instructions Indication:Impaired fasting glucose Start:03-Mar-2015 Instruction Type:Provider Instructions for Treatment How to access health informa tion online Indication:Need for prophylactic vaccination and inoculation against influenza Start:27-Jan-2015 Instruction Type:Patient Education How to access health informa tion online - Detail Indication:Need for prophylactic vaccination and inoculation against influenza Start:27-Jan-2015 Instruction Type:Patient Education Patient Instructions Indication:Need for prophylactic vaccination and inoculation against influenza Start:27-Jan-2015 Instruction Type:Provider Instructions for Treatment Patient Instructions Indication:Obesity, unspecified Start:01-Nov-2014 Instruction Type:Provider Instructions for Treatment Patient Instructions Indication:Obesity, unspecified Start:22-Apr-2014 Instruction Type:Provider Instructions for Treatment Patient Instructions Indication:Near syncope Start:18-Oct-2013 Instruction Type:Provider Instructions for Treatment Patient Instructions Indication:Depressive disorder Start:25-Sep-2013 Instruction Type:Provider Instructions for Treatment instructions Indication:Depressive disorder Start:15-Mar-2013 Instruction Type:Provider Instructions for Treatment Patient Instructions Indication:Depressive disorder Start:23-Jan-2013 Instruction Type:Provider Instructions for Treatment Patient Instructions Indication:Cyst, kidney, acquired Start:17-Feb-2012 Instruction Type:Provider Instructions for Treatment Patient Instructions Indication:Depressive disorder Start:27-Jan-2012 Instruction Type:Provider Instructions for Treatment [facility]; [facility] Work Phone: Instructions* Name Dates Details Patient Instructions Indication:BMI 33.0-33.9,adult Start:15-Apr-2022 Instruction Type:Provider Instructions for Treatment How to Access Health Informa tion [employer] using Patient Portal and [employer] Indication:BMI 33.0-33.9,adult Start:15-Apr-2022 Instruction Type:Patient Education Patient Instructions Indication:Non-smoker Start:07-Dec-2021 Instruction Type:Provider Instructions for Treatment How to Access Health Informa tion Online using Patient Portal and [employer] Indication:Non-smoker Start:07-Dec-2021 Instruction Type:Patient Education Patient Instructions Indication:BMI 33.0-33.9,adult Start:12-Jan-2021 Instruction Type:Provider Instructions for Treatment How to Access Health Informa tion Online using Patient Portal and [employer] Indication:BMI 33.0-33.9,adult Start:12-Jan-2021 Instruction Type:Patient Education Patient Instructions Indication:BMI 33.0-33.9,adult Start:22-Dec-2020 Instruction Type:Provider Instructions for Treatment How to Access Health Informa tion Online using Patient Portal and [employer] Indication:BMI 33.0-33.9,adult Start:22-Dec-2020 Instruction Type:Patient Education Patient Instructions Indication:BMI 34.0-34.9,adult Start:01-May-2020 Instruction Type:Provider Instructions for Treatment How to Access Health Informa tion Online using Patient Portal and [employer] Indication:BMI 34.0-34.9,adult Start:01-May-2020 Instruction Type:Patient Education How to Access Health Informa tion Online using Patient Portal and [employer] Indication:Non-smoker Start:31-Mar-2020 Instruction Type:Patient Education Patient Instructions Indication:Non-smoker Start:31-Mar-2020 Instruction Type:Provider Instructions for Treatment How to access health informa tion online Indication:Non-smoker Start:08-Feb-2020 Instruction Type:Patient Education How to access health informa tion online - Detail Indication:Non-smoker Start:08-Feb-2020 Instruction Type:Patient Education Patient Instructions Indication:Non-smoker Start:08-Feb-2020 Instruction Type:Provider Instructions for Treatment How to access health informa tion online Indication:Non-smoker Start:26-Nov-2019 Instruction Type:Patient Education How to access health informa tion online - Detail Indication:Non-smoker Start:26-Nov-2019 Instruction Type:Patient Education Patient Instructions Indication:Non-smoker Start:26-Nov-2019 Instruction Type:Provider Instructions for Treatment How to access health informa tion online Indication:BMI 35.0-35.9,adult Start:04-Jul-2019 Instruction Type:Patient Education How to access health informa tion online - Detail Indication:BMI 35.0-35.9,adult Start:04-Jul-2019 Instruction Type:Patient Education Patient Instructions Indication:BMI 35.0-35.9,adult Start:04-Jul-2019 Instruction Type:Provider Instructions for Treatment How to access health informa tion online Indication:Anxiety Start:18-Apr-2019 Instruction Type:Patient Education How to access health informa tion online - Detail Indication:Anxiety Start:18-Apr-2019 Instruction Type:Patient Education Patient Instructions Indication:Anxiety Start:18-Apr-2019 Instruction Type:Provider Instructions for Treatment How to access health informa tion online Indication:BMI 35.0-35.9,adult Start:12-Apr-2019 Instruction Type:Patient Education How to access health informa tion online - Detail Indication:BMI 35.0-35.9,adult Start:12-Apr-2019 Instruction Type:Patient Education Patient Instructions Indication:BMI 35.0-35.9,adult Start:12-Apr-2019 Instruction Type:Provider Instructions for Treatment How to access health informa tion online Indication:BMI 36.0-36.9,adult Start:13-Oct-2018 Instruction Type:Patient Education How to access health informa tion online - Detail Indication:BMI 36.0-36.9,adult Start:13-Oct-2018 Instruction Type:Patient Education Patient Instructions Indication:BMI 36.0-36.9,adult Start:13-Oct-2018 Instruction Type:Provider Instructions for Treatment How to access health informa tion online Indication:Current non-smoker Start:14-Jul-2018 Instruction Type:Patient Education How to access health informa tion online - Detail Indication:Current non-smoker Start:14-Jul-2018 Instruction Type:Patient Education Patient Instructions Indication:Current non-smoker Start:14-Jul-2018 Instruction Type:Provider Instructions for Treatment How to access health informa tion online Indication:Current non-smoker Start:22-Jun-2018 Instruction Type:Patient Education How to access health informa tion online - Detail Indication:Current non-smoker Start:22-Jun-2018 Instruction Type:Patient Education Patient Instructions Indication:Sinusitis, bacterial Start:22-Jun-2018 Instruction Type:Provider Instructions for Treatment How to access health informa tion online Indication:Current non-smoker Start:16-Jun-2018 Instruction Type:Patient Education How to access health informa tion online - Detail Indication:Current non-smoker Start:16-Jun-2018 Instruction Type:Patient Education Patient Instructions Indication:Current non-smoker Start:16-Jun-2018 Instruction Type:Provider Instructions for Treatment Patient Instructions Indication:BMI 38.0-38.9,adult Start:23-Jan-2018 Instruction Type:Provider Instructions for Treatment How to access health informa tion online Indication:BMI 38.0-38.9,adult Start:23-Jan-2018 Instruction Type:Patient Education How to access health informa tion online - Detail Indication:BMI 38.0-38.9,adult Start:23-Jan-2018 Instruction Type:Patient Education Patient Instructions Indication:BMI 38.0-38.9,adult Start:23-Jan-2018 Instruction Type:Provider Instructions for Treatment How to access health informa tion online Indication:Current non-smoker Start:21-Nov-2017 Instruction Type:Patient Education How to access health informa tion online - Detail Indication:Current non-smoker Start:21-Nov-2017 Instruction Type:Patient Education Patient Instructions Indication:Current non-smoker Start:21-Nov-2017 Instruction Type:Provider Instructions for Treatment How to access health informa tion online Indication:BMI 38.0-38.9,adult Start:18-Nov-2017 Instruction Type:Patient Education How to access health informa tion online - Detail Indication:BMI 38.0-38.9,adult Start:18-Nov-2017 Instruction Type:Patient Education Patient Instructions Indication:BMI 38.0-38.9,adult Start:18-Nov-2017 Instruction Type:Provider Instructions for Treatment How to access health informa tion online Indication:Current non-smoker Start:27-Oct-2017 Instruction Type:Patient Education How to access health informa tion online - Detail Indication:Current non-smoker Start:27-Oct-2017 Instruction Type:Patient Education Patient Instructions Indication:Current non-smoker Start:27-Oct-2017 Instruction Type:Provider Instructions for Treatment How to access health informa tion online Indication:Current non-smoker Start:20-Jul-2017 Instruction Type:Patient Education How to access health informa tion online - Detail Indication:Current non-smoker Start:20-Jul-2017 Instruction Type:Patient Education Patient Instructions Indication:Current non-smoker Start:20-Jul-2017 Instruction Type:Provider Instructions for Treatment How to access health informa tion online Indication:Current non-smoker Start:17-Jun-2017 Instruction Type:Patient Education How to access health informa tion online - Detail Indication:Current non-smoker Start:17-Jun-2017 Instruction Type:Patient Education Patient Instructions Indication:Current non-smoker Start:17-Jun-2017 Instruction Type:Provider Instructions for Treatment How to access health informa tion online Indication:BMI 37.0-37.9, adult Start:19-Oct-2016 Instruction Type:Patient Education How to access health informa tion online - Detail Indication:Current non-smoker Start:19-Oct-2016 Instruction Type:Patient Education Patient Instructions Indication:Current non-smoker Start:19-Oct-2016 Instruction Type:Provider Instructions for Treatment How to access health informa tion online Indication:Current non-smoker Start:01-Oct-2016 Instruction Type:Patient Education Patient Instructions Indication:Current non-smoker Start:01-Oct-2016 Instruction Type:Provider Instructions for Treatment How to access health informa tion online Indication:BMI 39.0-39.9,adult Start:19-Apr-2016 Instruction Type:Patient Education How to access health informa tion online - Detail Indication:BMI 39.0-39.9,adult Start:19-Apr-2016 Instruction Type:Patient Education Patient Instructions Indication:BMI 39.0-39.9,adult Start:19-Apr-2016 Instruction Type:Provider Instructions for Treatment How to access health informa tion online Indication:BMI 38.0-38.9,adult Start:20-Feb-2016 Instruction Type:Patient Education How to access health informa tion online - Detail Indication:BMI 38.0-38.9,adult Start:20-Feb-2016 Instruction Type:Patient Education Patient Instructions Indication:BMI 38.0-38.9,adult Start:20-Feb-2016 Instruction Type:Provider Instructions for Treatment How to access health informa tion online Indication:Current non-smoker Start:16-Feb-2016 Instruction Type:Patient Education How to access health informa tion online - Detail Indication:Current non-smoker Start:16-Feb-2016 Instruction Type:Patient Education Patient Instructions Indication:Current non-smoker Start:16-Feb-2016 Instruction Type:Provider Instructions for Treatment How to access health informa tion online Indication:Impaired fasting glucose Start:22-Dec-2015 Instruction Type:Patient Education How to access health informa tion online - Detail Indication:Impaired fasting glucose Start:22-Dec-2015 Instruction Type:Patient Education Patient Instructions Indication:Impaired fasting glucose Start:22-Dec-2015 Instruction Type:Provider Instructions for Treatment Patient Instructions Indication:Stress reaction Start:04-Aug-2015 Instruction Type:Provider Instructions for Treatment Patient Instructions Indication:Impaired fasting glucose Start:03-Mar-2015 Instruction Type:Provider Instructions for Treatment How to access health informa tion online Indication:Need for prophylactic vaccination and inoculation against influenza Start:27-Jan-2015 Instruction Type:Patient Education How to access health informa tion online - Detail Indication:Need for prophylactic vaccination and inoculation against influenza Start:27-Jan-2015 Instruction Type:Patient Education Patient Instructions Indication:Need for prophylactic vaccination and inoculation against influenza Start:27-Jan-2015 Instruction Type:Provider Instructions for Treatment Patient Instructions Indication:Obesity, unspecified Start:01-Nov-2014 Instruction Type:Provider Instructions for Treatment Patient Instructions Indication:Obesity, unspecified Start:22-Apr-2014 Instruction Type:Provider Instructions for Treatment Patient Instructions Indication:Near syncope Start:18-Oct-2013 Instruction Type:Provider Instructions for Treatment Patient Instructions Indication:Depressive disorder Start:25-Sep-2013 Instruction Type:Provider Instructions for Treatment instructions Indication:Depressive disorder Start:15-Mar-2013 Instruction Type:Provider Instructions for Treatment Patient Instructions Indication:Depressive disorder Start:23-Jan-2013 Instruction Type:Provider Instructions for Treatment Patient Instructions Indication:Cyst, kidney, acquired Start:17-Feb-2012 Instruction Type:Provider Instructions for Treatment Patient Instructions Indication:Depressive disorder Start:27-Jan-2012 Instruction Type:Provider Instructions for Treatment [facility]; [facility] Work Phone: Instructions* Name Dates Details Patient Instructions Indication:Non-smoker Start:20-Dec-2022 Instruction Type:Provider Instructions for Treatment How to Access Health Informa tion Online using Patient Portal and [employer] Apps Indication:Non-smoker Start:20-Dec-2022 Instruction Type:Patient Education Patient Instructions Indication:BMI 33.0-33.9,adult Start:15-Apr-2022 Instruction Type:Provider Instructions for Treatment How to Access Health Informa tion Online using Patient Portal and [employer] Apps Indication:BMI 33.0-33.9,adult Start:15-Apr-2022 Instruction Type:Patient Education Patient Instructions Indication:Non-smoker Start:07-Dec-2021 Instruction Type:Provider Instructions for Treatment How to Access Health Informa tion Online using Patient Portal and [employer] Apps Indication:Non-smoker Start:07-Dec-2021 Instruction Type:Patient Education Patient Instructions Indication:BMI 33.0-33.9,adult Start:12-Jan-2021 Instruction Type:Provider Instructions for Treatment How to Access Health Informa tion Online using Patient Portal and [employer] Apps Indication:BMI 33.0-33.9,adult Start:12-Jan-2021 Instruction Type:Patient Education Patient Instructions Indication:BMI 33.0-33.9,adult Start:22-Dec-2020 Instruction Type:Provider Instructions for Treatment How to Access Health Informa tion Online using Patient Portal and [employer] Apps Indication:BMI 33.0-33.9,adult Start:22-Dec-2020 Instruction Type:Patient Education Patient Instructions Indication:BMI 34.0-34.9,adult Start:01-May-2020 Instruction Type:Provider Instructions for Treatment How to Access Health Informa tion Online using Patient Portal and [employer] Apps Indication:BMI 34.0-34.9,adult Start:01-May-2020 Instruction Type:Patient Education How to Access Health Informa tion Online using Patient Portal and [employer] Apps Indication:Non-smoker Start:31-Mar-2020 Instruction Type:Patient Education Patient Instructions Indication:Non-smoker Start:31-Mar-2020 Instruction Type:Provider Instructions for Treatment How to access health informa tion online Indication:Non-smoker Start:08-Feb-2020 Instruction Type:Patient Education How to access health informa tion online - Detail Indication:Non-smoker Start:08-Feb-2020 Instruction Type:Patient Education Patient Instructions Indication:Non-smoker Start:08-Feb-2020 Instruction Type:Provider Instructions for Treatment How to access health informa tion online Indication:Non-smoker Start:26-Nov-2019 Instruction Type:Patient Education How to access health informa tion online - Detail Indication:Non-smoker Start:26-Nov-2019 Instruction Type:Patient Education Patient Instructions Indication:Non-smoker Start:26-Nov-2019 Instruction Type:Provider Instructions for Treatment How to access health informa tion online Indication:BMI 35.0-35.9,adult Start:04-Jul-2019 Instruction Type:Patient Education How to access health informa tion online - Detail Indication:BMI 35.0-35.9,adult Start:04-Jul-2019 Instruction Type:Patient Education Patient Instructions Indication:BMI 35.0-35.9,adult Start:04-Jul-2019 Instruction Type:Provider Instructions for Treatment How to access health informa tion online Indication:Anxiety Start:18-Apr-2019 Instruction Type:Patient Education How to access health informa tion online - Detail Indication:Anxiety Start:18-Apr-2019 Instruction Type:Patient Education Patient Instructions Indication:Anxiety Start:18-Apr-2019 Instruction Type:Provider Instructions for Treatment How to access health informa tion online Indication:BMI 35.0-35.9,adult Start:12-Apr-2019 Instruction Type:Patient Education How to access health informa tion online - Detail Indication:BMI 35.0-35.9,adult Start:12-Apr-2019 Instruction Type:Patient Education Patient Instructions Indication:BMI 35.0-35.9,adult Start:12-Apr-2019 Instruction Type:Provider Instructions for Treatment How to access health informa tion online Indication:BMI 36.0-36.9,adult Start:13-Oct-2018 Instruction Type:Patient Education How to access health informa tion online - Detail Indication:BMI 36.0-36.9,adult Start:13-Oct-2018 Instruction Type:Patient Education Patient Instructions Indication:BMI 36.0-36.9,adult Start:13-Oct-2018 Instruction Type:Provider Instructions for Treatment How to access health informa tion online Indication:Current non-smoker Start:14-Jul-2018 Instruction Type:Patient Education How to access health informa tion online - Detail Indication:Current non-smoker Start:14-Jul-2018 Instruction Type:Patient Education Patient Instructions Indication:Current non-smoker Start:14-Jul-2018 Instruction Type:Provider Instructions for Treatment How to access health informa tion online Indication:Current non-smoker Start:22-Jun-2018 Instruction Type:Patient Education How to access health informa tion online - Detail Indication:Current non-smoker Start:22-Jun-2018 Instruction Type:Patient Education Patient Instructions Indication:Sinusitis, bacterial Start:22-Jun-2018 Instruction Type:Provider Instructions for Treatment How to access health informa tion online Indication:Current non-smoker Start:16-Jun-2018 Instruction Type:Patient Education How to access health informa tion online - Detail Indication:Current non-smoker Start:16-Jun-2018 Instruction Type:Patient Education Patient Instructions Indication:Current non-smoker Start:16-Jun-2018 Instruction Type:Provider Instructions for Treatment Patient Instructions Indication:BMI 38.0-38.9,adult Start:23-Jan-2018 Instruction Type:Provider Instructions for Treatment How to access health informa tion online Indication:BMI 38.0-38.9,adult Start:23-Jan-2018 Instruction Type:Patient Education How to access health informa tion online - Detail Indication:BMI 38.0-38.9,adult Start:23-Jan-2018 Instruction Type:Patient Education Patient Instructions Indication:BMI 38.0-38.9,adult Start:23-Jan-2018 Instruction Type:Provider Instructions for Treatment How to access health informa tion online Indication:Current non-smoker Start:21-Nov-2017 Instruction Type:Patient Education How to access health informa tion online - Detail Indication:Current non-smoker Start:21-Nov-2017 Instruction Type:Patient Education Patient Instructions Indication:Current non-smoker Start:21-Nov-2017 Instruction Type:Provider Instructions for Treatment How to access health informa tion online Indication:BMI 38.0-38.9,adult Start:18-Nov-2017 Instruction Type:Patient Education How to access health informa tion online - Detail Indication:BMI 38.0-38.9,adult Start:18-Nov-2017 Instruction Type:Patient Education Patient Instructions Indication:BMI 38.0-38.9,adult Start:18-Nov-2017 Instruction Type:Provider Instructions for Treatment How to access health informa tion online Indication:Current non-smoker Start:27-Oct-2017 Instruction Type:Patient Education How to access health informa tion online - Detail Indication:Current non-smoker Start:27-Oct-2017 Instruction Type:Patient Education Patient Instructions Indication:Current non-smoker Start:27-Oct-2017 Instruction Type:Provider Instructions for Treatment How to access health informa tion online Indication:Current non-smoker Start:20-Jul-2017 Instruction Type:Patient Education How to access health informa tion online - Detail Indication:Current non-smoker Start:20-Jul-2017 Instruction Type:Patient Education Patient Instructions Indication:Current non-smoker Start:20-Jul-2017 Instruction Type:Provider Instructions for Treatment How to access health informa tion online Indication:Current non-smoker Start:17-Jun-2017 Instruction Type:Patient Education How to access health informa tion online - Detail Indication:Current non-smoker Start:17-Jun-2017 Instruction Type:Patient Education Patient Instructions Indication:Current non-smoker Start:17-Jun-2017 Instruction Type:Provider Instructions for Treatment How to access health informa tion online Indication:BMI 37.0-37.9, adult Start:19-Oct-2016 Instruction Type:Patient Education How to access health informa tion online - Detail Indication:Current non-smoker Start:19-Oct-2016 Instruction Type:Patient Education Patient Instructions Indication:Current non-smoker Start:19-Oct-2016 Instruction Type:Provider Instructions for Treatment How to access health informa tion online Indication:Current non-smoker Start:01-Oct-2016 Instruction Type:Patient Education Patient Instructions Indication:Current non-smoker Start:01-Oct-2016 Instruction Type:Provider Instructions for Treatment How to access health informa tion online Indication:BMI 39.0-39.9,adult Start:19-Apr-2016 Instruction Type:Patient Education How to access health informa tion online - Detail Indication:BMI 39.0-39.9,adult Start:19-Apr-2016 Instruction Type:Patient Education Patient Instructions Indication:BMI 39.0-39.9,adult Start:19-Apr-2016 Instruction Type:Provider Instructions for Treatment How to access health informa tion online Indication:BMI 38.0-38.9,adult Start:20-Feb-2016 Instruction Type:Patient Education How to access health informa tion online - Detail Indication:BMI 38.0-38.9,adult Start:20-Feb-2016 Instruction Type:Patient Education Patient Instructions Indication:BMI 38.0-38.9,adult Start:20-Feb-2016 Instruction Type:Provider Instructions for Treatment How to access health informa tion online Indication:Current non-smoker Start:16-Feb-2016 Instruction Type:Patient Education How to access health informa tion online - Detail Indication:Current non-smoker Start:16-Feb-2016 Instruction Type:Patient Education Patient Instructions Indication:Current non-smoker Start:16-Feb-2016 Instruction Type:Provider Instructions for Treatment How to access health informa tion online Indication:Impaired fasting glucose Start:22-Dec-2015 Instruction Type:Patient Education How to access health informa tion online - Detail Indication:Impaired fasting glucose Start:22-Dec-2015 Instruction Type:Patient Education Patient Instructions Indication:Impaired fasting glucose Start:22-Dec-2015 Instruction Type:Provider Instructions for Treatment Patient Instructions Indication:Stress reaction Start:04-Aug-2015 Instruction Type:Provider Instructions for Treatment Patient Instructions Indication:Impaired fasting glucose Start:03-Mar-2015 Instruction Type:Provider Instructions for Treatment How to access health informa tion online Indication:Need for prophylactic vaccination and inoculation against influenza Start:27-Jan-2015 Instruction Type:Patient Education How to access health informa tion online - Detail Indication:Need for prophylactic vaccination and inoculation against influenza Start:27-Jan-2015 Instruction Type:Patient Education Patient Instructions Indication:Need for prophylactic vaccination and inoculation against influenza Start:27-Jan-2015 Instruction Type:Provider Instructions for Treatment Patient Instructions Indication:Obesity, unspecified Start:01-Nov-2014 Instruction Type:Provider Instructions for Treatment Patient Instructions Indication:Obesity, unspecified Start:22-Apr-2014 Instruction Type:Provider Instructions for Treatment Patient Instructions Indication:Near syncope Start:18-Oct-2013 Instruction Type:Provider Instructions for Treatment Patient Instructions Indication:Depressive disorder Start:25-Sep-2013 Instruction Type:Provider Instructions for Treatment instructions Indication:Depressive disorder Start:15-Mar-2013 Instruction Type:Provider Instructions for Treatment Patient Instructions Indication:Depressive disorder Start:23-Jan-2013 Instruction Type:Provider Instructions for Treatment Patient Instructions Indication:Cyst, kidney, acquired Start:17-Feb-2012 Instruction Type:Provider Instructions for Treatment Patient Instructions Indication:Depressive disorder Start:27-Jan-2012 Instruction Type:Provider Instructions for Treatment [facility]; [facility] Work Phone: Instructions* Name Dates Details Patient Instructions Indication:Non-smoker Start:20-Dec-2022 Instruction Type:Provider Instructions for Treatment How to Access Health Informa tion Online using Patient Portal and [employer] Apps Indication:Non-smoker Start:20-Dec-2022 Instruction Type:Patient Education Patient Instructions Indication:BMI 33.0-33.9,adult Start:15-Apr-2022 Instruction Type:Provider Instructions for Treatment How to Access Health Informa tion Online using Patient Portal and [employer] Indication:BMI 33.0-33.9,adult Start:15-Apr-2022 Instruction Type:Patient Education Patient Instructions Indication:Non-smoker Start:07-Dec-2021 Instruction Type:Provider Instructions for Treatment How to Access Health Informa tion Online using Patient Portal and [employer] Indication:Non-smoker Start:07-Dec-2021 Instruction Type:Patient Education Patient Instructions Indication:BMI 33.0-33.9,adult Start:12-Jan-2021 Instruction Type:Provider Instructions for Treatment How to Access Health Informa tion Online using Patient Portal and [employer] Indication:BMI 33.0-33.9,adult Start:12-Jan-2021 Instruction Type:Patient Education Patient Instructions Indication:BMI 33.0-33.9,adult Start:22-Dec-2020 Instruction Type:Provider Instructions for Treatment How to Access Health Informa tion Online using Patient Portal and [employer] Indication:BMI 33.0-33.9,adult Start:22-Dec-2020 Instruction Type:Patient Education Patient Instructions Indication:BMI 34.0-34.9,adult Start:01-May-2020 Instruction Type:Provider Instructions for Treatment How to Access Health Informa tion Online using Patient Portal and [employer] Indication:BMI 34.0-34.9,adult Start:01-May-2020 Instruction Type:Patient Education How to Access Health Informa tion Online using Patient Portal and [employer] Apps Indication:Non-smoker Start:31-Mar-2020 Instruction Type:Patient Education Patient Instructions Indication:Non-smoker Start:31-Mar-2020 Instruction Type:Provider Instructions for Treatment How to access health informa tion online Indication:Non-smoker Start:08-Feb-2020 Instruction Type:Patient Education How to access health informa tion online - Detail Indication:Non-smoker Start:08-Feb-2020 Instruction Type:Patient Education Patient Instructions Indication:Non-smoker Start:08-Feb-2020 Instruction Type:Provider Instructions for Treatment How to access health informa tion online Indication:Non-smoker Start:26-Nov-2019 Instruction Type:Patient Education How to access health informa tion online - Detail Indication:Non-smoker Start:26-Nov-2019 Instruction Type:Patient Education Patient Instructions Indication:Non-smoker Start:26-Nov-2019 Instruction Type:Provider Instructions for Treatment How to access health informa tion online Indication:BMI 35.0-35.9,adult Start:04-Jul-2019 Instruction Type:Patient Education How to access health informa tion online - Detail Indication:BMI 35.0-35.9,adult Start:04-Jul-2019 Instruction Type:Patient Education Patient Instructions Indication:BMI 35.0-35.9,adult Start:04-Jul-2019 Instruction Type:Provider Instructions for Treatment How to access health informa tion online Indication:Anxiety Start:18-Apr-2019 Instruction Type:Patient Education How to access health informa tion online - Detail Indication:Anxiety Start:18-Apr-2019 Instruction Type:Patient Education Patient Instructions Indication:Anxiety Start:18-Apr-2019 Instruction Type:Provider Instructions for Treatment How to access health informa tion online Indication:BMI 35.0-35.9,adult Start:12-Apr-2019 Instruction Type:Patient Education How to access health informa tion online - Detail Indication:BMI 35.0-35.9,adult Start:12-Apr-2019 Instruction Type:Patient Education Patient Instructions Indication:BMI 35.0-35.9,adult Start:12-Apr-2019 Instruction Type:Provider Instructions for Treatment How to access health informa tion online Indication:BMI 36.0-36.9,adult Start:13-Oct-2018 Instruction Type:Patient Education How to access health informa tion online - Detail Indication:BMI 36.0-36.9,adult Start:13-Oct-2018 Instruction Type:Patient Education Patient Instructions Indication:BMI 36.0-36.9,adult Start:13-Oct-2018 Instruction Type:Provider Instructions for Treatment How to access health informa tion online Indication:Current non-smoker Start:14-Jul-2018 Instruction Type:Patient Education How to access health informa tion online - Detail Indication:Current non-smoker Start:14-Jul-2018 Instruction Type:Patient Education Patient Instructions Indication:Current non-smoker Start:14-Jul-2018 Instruction Type:Provider Instructions for Treatment How to access health informa tion online Indication:Current non-smoker Start:22-Jun-2018 Instruction Type:Patient Education How to access health informa tion online - Detail Indication:Current non-smoker Start:22-Jun-2018 Instruction Type:Patient Education Patient Instructions Indication:Sinusitis, bacterial Start:22-Jun-2018 Instruction Type:Provider Instructions for Treatment How to access health informa tion online Indication:Current non-smoker Start:16-Jun-2018 Instruction Type:Patient Education How to access health informa tion online - Detail Indication:Current non-smoker Start:16-Jun-2018 Instruction Type:Patient Education Patient Instructions Indication:Current non-smoker Start:16-Jun-2018 Instruction Type:Provider Instructions for Treatment Patient Instructions Indication:BMI 38.0-38.9,adult Start:23-Jan-2018 Instruction Type:Provider Instructions for Treatment How to access health informa tion online Indication:BMI 38.0-38.9,adult Start:23-Jan-2018 Instruction Type:Patient Education How to access health informa tion online - Detail Indication:BMI 38.0-38.9,adult Start:23-Jan-2018 Instruction Type:Patient Education Patient Instructions Indication:BMI 38.0-38.9,adult Start:23-Jan-2018 Instruction Type:Provider Instructions for Treatment How to access health informa tion online Indication:Current non-smoker Start:21-Nov-2017 Instruction Type:Patient Education How to access health informa tion online - Detail Indication:Current non-smoker Start:21-Nov-2017 Instruction Type:Patient Education Patient Instructions Indication:Current non-smoker Start:21-Nov-2017 Instruction Type:Provider Instructions for Treatment How to access health informa tion online Indication:BMI 38.0-38.9,adult Start:18-Nov-2017 Instruction Type:Patient Education How to access health informa tion online - Detail Indication:BMI 38.0-38.9,adult Start:18-Nov-2017 Instruction Type:Patient Education Patient Instructions Indication:BMI 38.0-38.9,adult Start:18-Nov-2017 Instruction Type:Provider Instructions for Treatment How to access health informa tion online Indication:Current non-smoker Start:27-Oct-2017 Instruction Type:Patient Education How to access health informa tion online - Detail Indication:Current non-smoker Start:27-Oct-2017 Instruction Type:Patient Education Patient Instructions Indication:Current non-smoker Start:27-Oct-2017 Instruction Type:Provider Instructions for Treatment How to access health informa tion online Indication:Current non-smoker Start:20-Jul-2017 Instruction Type:Patient Education How to access health informa tion online - Detail Indication:Current non-smoker Start:20-Jul-2017 Instruction Type:Patient Education Patient Instructions Indication:Current non-smoker Start:20-Jul-2017 Instruction Type:Provider Instructions for Treatment How to access health informa tion online Indication:Current non-smoker Start:17-Jun-2017 Instruction Type:Patient Education How to access health informa tion online - Detail Indication:Current non-smoker Start:17-Jun-2017 Instruction Type:Patient Education Patient Instructions Indication:Current non-smoker Start:17-Jun-2017 Instruction Type:Provider Instructions for Treatment How to access health informa tion online Indication:BMI 37.0-37.9, adult Start:19-Oct-2016 Instruction Type:Patient Education How to access health informa tion online - Detail Indication:Current non-smoker Start:19-Oct-2016 Instruction Type:Patient Education Patient Instructions Indication:Current non-smoker Start:19-Oct-2016 Instruction Type:Provider Instructions for Treatment How to access health informa tion online Indication:Current non-smoker Start:01-Oct-2016 Instruction Type:Patient Education Patient Instructions Indication:Current non-smoker Start:01-Oct-2016 Instruction Type:Provider Instructions for Treatment How to access health informa tion online Indication:BMI 39.0-39.9,adult Start:19-Apr-2016 Instruction Type:Patient Education How to access health informa tion online - Detail Indication:BMI 39.0-39.9,adult Start:19-Apr-2016 Instruction Type:Patient Education Patient Instructions Indication:BMI 39.0-39.9,adult Start:19-Apr-2016 Instruction Type:Provider Instructions for Treatment How to access health informa tion online Indication:BMI 38.0-38.9,adult Start:20-Feb-2016 Instruction Type:Patient Education How to access health informa tion online - Detail Indication:BMI 38.0-38.9,adult Start:20-Feb-2016 Instruction Type:Patient Education Patient Instructions Indication:BMI 38.0-38.9,adult Start:20-Feb-2016 Instruction Type:Provider Instructions for Treatment How to access health informa tion online Indication:Current non-smoker Start:16-Feb-2016 Instruction Type:Patient Education How to access health informa tion online - Detail Indication:Current non-smoker Start:16-Feb-2016 Instruction Type:Patient Education Patient Instructions Indication:Current non-smoker Start:16-Feb-2016 Instruction Type:Provider Instructions for Treatment How to access health informa tion online Indication:Impaired fasting glucose Start:22-Dec-2015 Instruction Type:Patient Education How to access health informa tion online - Detail Indication:Impaired fasting glucose Start:22-Dec-2015 Instruction Type:Patient Education Patient Instructions Indication:Impaired fasting glucose Start:22-Dec-2015 Instruction Type:Provider Instructions for Treatment Patient Instructions Indication:Stress reaction Start:04-Aug-2015 Instruction Type:Provider Instructions for Treatment Patient Instructions Indication:Impaired fasting glucose Start:03-Mar-2015 Instruction Type:Provider Instructions for Treatment How to access health informa tion online Indication:Need for prophylactic vaccination and inoculation against influenza Start:27-Jan-2015 Instruction Type:Patient Education How to access health informa tion online - Detail Indication:Need for prophylactic vaccination and inoculation against influenza Start:27-Jan-2015 Instruction Type:Patient Education Patient Instructions Indication:Need for prophylactic vaccination and inoculation against influenza Start:27-Jan-2015 Instruction Type:Provider Instructions for Treatment Patient Instructions Indication:Obesity, unspecified Start:01-Nov-2014 Instruction Type:Provider Instructions for Treatment Patient Instructions Indication:Obesity, unspecified Start:22-Apr-2014 Instruction Type:Provider Instructions for Treatment Patient Instructions Indication:Near syncope Start:18-Oct-2013 Instruction Type:Provider Instructions for Treatment Patient Instructions Indication:Depressive disorder Start:25-Sep-2013 Instruction Type:Provider Instructions for Treatment instructions Indication:Depressive disorder Start:15-Mar-2013 Instruction Type:Provider Instructions for Treatment Patient Instructions Indication:Depressive disorder Start:23-Jan-2013 Instruction Type:Provider Instructions for Treatment Patient Instructions Indication:Cyst, kidney, acquired Start:17-Feb-2012 Instruction Type:Provider Instructions for Treatment Patient Instructions Indication:Depressive disorder Start:27-Jan-2012 Instruction Type:Provider Instructions for Treatment [facility] Work Phone: progress note No data available for this section [facility] Reason for referral (narrative)No [facility] for [facility]: Instructions Name Dates Details BMI 38.0-38.9,adult : Patien t Instructions Indication:BMI 38.0-38.9,adult BMI 38.0-38.9,adult : How to access health information online Indication:BMI 38.0-38.9,adult BMI 38.0-38.9,adult : How to access health information online - Detail Indication:BMI 38.0-38.9,adult Current non-smoker : How to access health information online Indication:Current non-smoker Current non-smoker : How to access health information online - Detail Indication:Current non-smoker Current non-smoker : Patient Instructions Indication:Current non-smoker BMI 37.0-37.9, adult : How t o access health information online Indication:BMI 37.0-37.9, adult BMI 39.0-39.9,adult : How to access health information online Indication:BMI 39.0-39.9,adult BMI 39.0-39.9,adult : How to access health information online - Detail Indication:BMI 39.0-39.9,adult BMI 39.0-39.9,adult : Patien t Instructions Indication:BMI 39.0-39.9,adult Impaired fasting glucose : H ow to access health information online Indication:Impaired fasting glucose Impaired fasting glucose : H ow to access health information online - Detail Indication:Impaired fasting glucose Impaired fasting glucose : P atient Instructions Indication:Impaired fasting glucose Stress reaction : Patient In structions Indication:Stress reaction Need for prophylactic vaccin ation and inoculation against influenza : How to access health information online Indication:Need for prophylactic vaccination and inoculation against influenza Need for prophylactic vaccin ation and inoculation against influenza : How to access health information online - Detail Indication:Need for prophylactic vaccination and inoculation against influenza Need for prophylactic vaccin ation and inoculation against influenza : Patient Instructions Indication:Need for prophylactic vaccination and inoculation against influenza Obesity, unspecified : Patie nt Instructions Indication:Obesity, unspecified Near syncope : Patient Instr uctions Indication:Near syncope Depressive disorder : Patien t Instructions Indication:Depressive disorder Depressive disorder : instru ctions Indication:Depressive disorder Cyst, kidney, acquired : Pat ient Instructions Indication:Cyst, kidney, acquired Name Dates Details BMI 38.0-38.9,adult : Patien t Instructions Indication:BMI 38.0-38.9,adult BMI 38.0-38.9,adult : How to access health information online Indication:BMI 38.0-38.9,adult BMI 38.0-38.9,adult : How to access health information online - Detail Indication:BMI 38.0-38.9,adult Current non-smoker : How to access health information online Indication:Current non-smoker Current non-smoker : How to access health information online - Detail Indication:Current non-smoker Current non-smoker : Patient Instructions Indication:Current non-smoker BMI 37.0-37.9, adult : How t o access health information online Indication:BMI 37.0-37.9, adult BMI 39.0-39.9,adult : How to access health information online Indication:BMI 39.0-39.9,adult BMI 39.0-39.9,adult : How to access health information online - Detail Indication:BMI 39.0-39.9,adult BMI 39.0-39.9,adult : Patien t Instructions Indication:BMI 39.0-39.9,adult Impaired fasting glucose : H ow to access health information online Indication:Impaired fasting glucose Impaired fasting glucose : H ow to access health information online - Detail Indication:Impaired fasting glucose Impaired fasting glucose : P atient Instructions Indication:Impaired fasting glucose Stress reaction : Patient In structions Indication:Stress reaction Need for prophylactic vaccin ation and inoculation against influenza : How to access health information online Indication:Need for prophylactic vaccination and inoculation against influenza Need for prophylactic vaccin ation and inoculation against influenza : How to access health information online - Detail Indication:Need for prophylactic vaccination and inoculation against influenza Need for prophylactic vaccin ation and inoculation against influenza : Patient Instructions Indication:Need for prophylactic vaccination and inoculation against influenza Obesity, unspecified : Patie nt Instructions Indication:Obesity, unspecified Near syncope : Patient Instr uctions Indication:Near syncope Depressive disorder : Patien t Instructions Indication:Depressive disorder Depressive disorder : instru ctions Indication:Depressive disorder Cyst, kidney, acquired : Pat ient Instructions Indication:Cyst, kidney, acquired Name Dates Details Current non-smoker : How to access health information online Indication:Current non-smoker Current non-smoker : How to access health information online - Detail Indication:Current non-smoker Current non-smoker : Patient Instructions Indication:Current non-smoker BMI 38.0-38.9,adult : Patien t Instructions Indication:BMI 38.0-38.9,adult BMI 38.0-38.9,adult : How to access health information online Indication:BMI 38.0-38.9,adult BMI 38.0-38.9,adult : How to access health information online - Detail Indication:BMI 38.0-38.9,adult BMI 37.0-37.9, adult : How t o access health information online Indication:BMI 37.0-37.9, adult BMI 39.0-39.9,adult : How to access health information online Indication:BMI 39.0-39.9,adult BMI 39.0-39.9,adult : How to access health information online - Detail Indication:BMI 39.0-39.9,adult BMI 39.0-39.9,adult : Patien t Instructions Indication:BMI 39.0-39.9,adult Impaired fasting glucose : H ow to access health information online Indication:Impaired fasting glucose Impaired fasting glucose : H ow to access health information online - Detail Indication:Impaired fasting glucose Impaired fasting glucose : P atient Instructions Indication:Impaired fasting glucose Stress reaction : Patient In structions Indication:Stress reaction Need for prophylactic vaccin ation and inoculation against influenza : How to access health information online Indication:Need for prophylactic vaccination and inoculation against influenza Need for prophylactic vaccin ation and inoculation against influenza : How to access health information online - Detail Indication:Need for prophylactic vaccination and inoculation against influenza Need for prophylactic vaccin ation and inoculation against influenza : Patient Instructions Indication:Need for prophylactic vaccination and inoculation against influenza Obesity, unspecified : Patie nt Instructions Indication:Obesity, unspecified Near syncope : Patient Instr uctions Indication:Near syncope Depressive disorder : Patien t Instructions Indication:Depressive disorder Depressive disorder : instru ctions Indication:Depressive disorder Cyst, kidney, acquired : Pat ient Instructions Indication:Cyst, kidney, acquired Name Dates Details Current non-smoker : How to access health information online Indication:Current non-smoker Current non-smoker : How to access health information online - Detail Indication:Current non-smoker Current non-smoker : Patient Instructions Indication:Current non-smoker Sinusitis, bacterial : Patie nt Instructions Indication:Sinusitis, bacterial BMI 38.0-38.9,adult : Patien t Instructions Indication:BMI 38.0-38.9,adult BMI 38.0-38.9,adult : How to access health information online Indication:BMI 38.0-38.9,adult BMI 38.0-38.9,adult : How to access health information online - Detail Indication:BMI 38.0-38.9,adult BMI 37.0-37.9, adult : How t o access health information online Indication:BMI 37.0-37.9, adult BMI 39.0-39.9,adult : How to access health information online Indication:BMI 39.0-39.9,adult BMI 39.0-39.9,adult : How to access health information online - Detail Indication:BMI 39.0-39.9,adult BMI 39.0-39.9,adult : Patien t Instructions Indication:BMI 39.0-39.9,adult Impaired fasting glucose : H ow to access health information online Indication:Impaired fasting glucose Impaired fasting glucose : H ow to access health information online - Detail Indication:Impaired fasting glucose Impaired fasting glucose : P atient Instructions Indication:Impaired fasting glucose Stress reaction : Patient In structions Indication:Stress reaction Need for prophylactic vaccin ation and inoculation against influenza : How to access health information online Indication:Need for prophylactic vaccination and inoculation against influenza Need for prophylactic vaccin ation and inoculation against influenza : How to access health information online - Detail Indication:Need for prophylactic vaccination and inoculation against influenza Need for prophylactic vaccin ation and inoculation against influenza : Patient Instructions Indication:Need for prophylactic vaccination and inoculation against influenza Obesity, unspecified : Patie nt Instructions Indication:Obesity, unspecified Near syncope : Patient Instr uctions Indication:Near syncope Depressive disorder : Patien t Instructions Indication:Depressive disorder Depressive disorder : instru ctions Indication:Depressive disorder Cyst, kidney, acquired : Pat ient Instructions Indication:Cyst, kidney, acquired Name Dates Details How to access health informa tion online Indication:BMI 36.0-36.9,adult Start:13-Oct-2018 Instruction Type:Patient Education How to access health informa tion online - Detail Indication:BMI 36.0-36.9,adult Start:13-Oct-2018 Instruction Type:Patient Education Patient Instructions Indication:BMI 36.0-36.9,adult Start:13-Oct-2018 Instruction Type:Provider Instructions for Treatment How to access health informa tion online Indication:Current non-smoker Start:14-Jul-2018 Instruction Type:Patient Education How to access health informa tion online - Detail Indication:Current non-smoker Start:14-Jul-2018 Instruction Type:Patient Education Patient Instructions Indication:Current non-smoker Start:14-Jul-2018 Instruction Type:Provider Instructions for Treatment How to access health informa tion online Indication:Current non-smoker Start:22-Jun-2018 Instruction Type:Patient Education How to access health informa tion online - Detail Indication:Current non-smoker Start:22-Jun-2018 Instruction Type:Patient Education Patient Instructions Indication:Sinusitis, bacterial Start:22-Jun-2018 Instruction Type:Provider Instructions for Treatment How to access health informa tion online Indication:Current non-smoker Start:16-Jun-2018 Instruction Type:Patient Education How to access health informa tion online - Detail Indication:Current non-smoker Start:16-Jun-2018 Instruction Type:Patient Education Patient Instructions Indication:Current non-smoker Start:16-Jun-2018 Instruction Type:Provider Instructions for Treatment Patient Instructions Indication:BMI 38.0-38.9,adult Start:23-Jan-2018 Instruction Type:Provider Instructions for Treatment How to access health informa tion online Indication:BMI 38.0-38.9,adult Start:23-Jan-2018 Instruction Type:Patient Education How to access health informa tion online - Detail Indication:BMI 38.0-38.9,adult Start:23-Jan-2018 Instruction Type:Patient Education How to access health informa tion online Indication:Current non-smoker Start:21-Nov-2017 Instruction Type:Patient Education How to access health informa tion online - Detail Indication:Current non-smoker Start:21-Nov-2017 Instruction Type:Patient Education Patient Instructions Indication:Current non-smoker Start:21-Nov-2017 Instruction Type:Provider Instructions for Treatment How to access health informa tion online Indication:BMI 38.0-38.9,adult Start:18-Nov-2017 Instruction Type:Patient Education How to access health informa tion online - Detail Indication:BMI 38.0-38.9,adult Start:18-Nov-2017 Instruction Type:Patient Education Patient Instructions Indication:BMI 38.0-38.9,adult Start:18-Nov-2017 Instruction Type:Provider Instructions for Treatment How to access health informa tion online Indication:Current non-smoker Start:27-Oct-2017 Instruction Type:Patient Education How to access health informa tion online - Detail Indication:Current non-smoker Start:27-Oct-2017 Instruction Type:Patient Education Patient Instructions Indication:Current non-smoker Start:27-Oct-2017 Instruction Type:Provider Instructions for Treatment How to access health informa tion online Indication:Current non-smoker Start:20-Jul-2017 Instruction Type:Patient Education How to access health informa tion online - Detail Indication:Current non-smoker Start:20-Jul-2017 Instruction Type:Patient Education Patient Instructions Indication:Current non-smoker Start:20-Jul-2017 Instruction Type:Provider Instructions for Treatment How to access health informa tion online Indication:Current non-smoker Start:17-Jun-2017 Instruction Type:Patient Education How to access health informa tion online - Detail Indication:Current non-smoker Start:17-Jun-2017 Instruction Type:Patient Education Patient Instructions Indication:Current non-smoker Start:17-Jun-2017 Instruction Type:Provider Instructions for Treatment How to access health informa tion online Indication:BMI 37.0-37.9, adult Start:19-Oct-2016 Instruction Type:Patient Education How to access health informa tion online - Detail Indication:Current non-smoker Start:19-Oct-2016 Instruction Type:Patient Education Patient Instructions Indication:Current non-smoker Start:19-Oct-2016 Instruction Type:Provider Instructions for Treatment How to access health informa tion online Indication:Current non-smoker Start:01-Oct-2016 Instruction Type:Patient Education Patient Instructions Indication:Current non-smoker Start:01-Oct-2016 Instruction Type:Provider Instructions for Treatment How to access health informa tion online Indication:BMI 39.0-39.9,adult Start:19-Apr-2016 Instruction Type:Patient Education How to access health informa tion online - Detail Indication:BMI 39.0-39.9,adult Start:19-Apr-2016 Instruction Type:Patient Education Patient Instructions Indication:BMI 39.0-39.9,adult Start:19-Apr-2016 Instruction Type:Provider Instructions for Treatment How to access health informa tion online Indication:BMI 38.0-38.9,adult Start:20-Feb-2016 Instruction Type:Patient Education How to access health informa tion online - Detail Indication:BMI 38.0-38.9,adult Start:20-Feb-2016 Instruction Type:Patient Education Patient Instructions Indication:BMI 38.0-38.9,adult Start:20-Feb-2016 Instruction Type:Provider Instructions for Treatment How to access health [employer] online Indication:Current non-smoker Start:16-Feb-2016 Instruction Type:Patient Education How to access health informa tion online - Detail Indication:Current non-smoker Start:16-Feb-2016 Instruction Type:Patient Education Patient Instructions Indication:Current non-smoker Start:16-Feb-2016 Instruction Type:Provider Instructions for Treatment How to access health informa tion online Indication:Impaired fasting glucose Start:22-Dec-2015 Instruction Type:Patient Education How to access health informa tion online - Detail Indication:Impaired fasting glucose Start:22-Dec-2015 Instruction Type:Patient Education Patient Instructions Indication:Impaired fasting glucose Start:22-Dec-2015 Instruction Type:Provider Instructions for Treatment Patient Instructions Indication:Stress reaction Start:04-Aug-2015 Instruction Type:Provider Instructions for Treatment Patient Instructions Indication:Impaired fasting glucose Start:03-Mar-2015 Instruction Type:Provider Instructions for Treatment How to access health informa tion online Indication:Need for prophylactic vaccination and inoculation against influenza Start:27-Jan-2015 Instruction Type:Patient Education How to access health informa tion online - Detail Indication:Need for prophylactic vaccination and inoculation against influenza Start:27-Jan-2015 Instruction Type:Patient Education Patient Instructions Indication:Need for prophylactic vaccination and inoculation against influenza Start:27-Jan-2015 Instruction Type:Provider Instructions for Treatment Patient Instructions Indication:Obesity, unspecified Start:01-Nov-2014 Instruction Type:Provider Instructions for Treatment Patient Instructions Indication:Obesity, unspecified Start:22-Apr-2014 Instruction Type:Provider Instructions for Treatment Patient Instructions Indication:Near syncope Start:18-Oct-2013 Instruction Type:Provider Instructions for Treatment Patient Instructions Indication:Depressive disorder Start:25-Sep-2013 Instruction Type:Provider Instructions for Treatment instructions Indication:Depressive disorder Start:15-Mar-2013 Instruction Type:Provider Instructions for Treatment Patient Instructions Indication:Depressive disorder Start:23-Jan-2013 Instruction Type:Provider Instructions for Treatment Patient Instructions Indication:Cyst, kidney, acquired Start:17-Feb-2012 Instruction Type:Provider Instructions for Treatment Patient Instructions Indication:Depressive disorder Start:27-Jan-2012 Instruction Type:Provider Instructions for Treatment Name Dates Details How to access health [employer] Indication:BMI 36.0-36.9,adult Start:13-Oct-2018 Instruction Type:Patient Education How to access health informa tion online - Detail Indication:BMI 36.0-36.9,adult Start:13-Oct-2018 Instruction Type:Patient Education Patient Instructions Indication:BMI 36.0-36.9,adult Start:13-Oct-2018 Instruction Type:Provider Instructions for Treatment How to access health informa tion online Indication:Current non-smoker Start:14-Jul-2018 Instruction Type:Patient Education How to access health informa tion online - Detail Indication:Current non-smoker Start:14-Jul-2018 Instruction Type:Patient Education Patient Instructions Indication:Current non-smoker Start:14-Jul-2018 Instruction Type:Provider Instructions for Treatment How to access health informa tion online Indication:Current non-smoker Start:22-Jun-2018 Instruction Type:Patient Education How to access health informa tion online - Detail Indication:Current non-smoker Start:22-Jun-2018 Instruction Type:Patient Education Patient Instructions Indication:Sinusitis, bacterial Start:22-Jun-2018 Instruction Type:Provider Instructions for Treatment How to access health informa tion online Indication:Current non-smoker Start:16-Jun-2018 Instruction Type:Patient Education How to access health informa tion online - Detail Indication:Current non-smoker Start:16-Jun-2018 Instruction Type:Patient Education Patient Instructions Indication:Current non-smoker Start:16-Jun-2018 Instruction Type:Provider Instructions for Treatment Patient Instructions Indication:BMI 38.0-38.9,adult Start:23-Jan-2018 Instruction Type:Provider Instructions for Treatment How to access health informa tion online Indication:BMI 38.0-38.9,adult Start:23-Jan-2018 Instruction Type:Patient Education How to access health informa tion online - Detail Indication:BMI 38.0-38.9,adult Start:23-Jan-2018 Instruction Type:Patient Education How to access health informa tion online Indication:Current non-smoker Start:21-Nov-2017 Instruction Type:Patient Education How to access health informa tion online - Detail Indication:Current non-smoker Start:21-Nov-2017 Instruction Type:Patient Education Patient Instructions Indication:Current non-smoker Start:21-Nov-2017 Instruction Type:Provider Instructions for Treatment How to access health informa tion online Indication:BMI 38.0-38.9,adult Start:18-Nov-2017 Instruction Type:Patient Education How to access health informa tion online - Detail Indication:BMI 38.0-38.9,adult Start:18-Nov-2017 Instruction Type:Patient Education Patient Instructions Indication:BMI 38.0-38.9,adult Start:18-Nov-2017 Instruction Type:Provider Instructions for Treatment How to access health informa tion online Indication:Current non-smoker Start:27-Oct-2017 Instruction Type:Patient Education How to access health informa tion online - Detail Indication:Current non-smoker Start:27-Oct-2017 Instruction Type:Patient Education Patient Instructions Indication:Current non-smoker Start:27-Oct-2017 Instruction Type:Provider Instructions for Treatment How to access health informa tion online Indication:Current non-smoker Start:20-Jul-2017 Instruction Type:Patient Education How to access health informa tion online - Detail Indication:Current non-smoker Start:20-Jul-2017 Instruction Type:Patient Education Patient Instructions Indication:Current non-smoker Start:20-Jul-2017 Instruction Type:Provider Instructions for Treatment How to access health informa tion online Indication:Current non-smoker Start:17-Jun-2017 Instruction Type:Patient Education How to access health informa tion online - Detail Indication:Current non-smoker Start:17-Jun-2017 Instruction Type:Patient Education Patient Instructions Indication:Current non-smoker Start:17-Jun-2017 Instruction Type:Provider Instructions for Treatment How to access health informa tion online Indication:BMI 37.0-37.9, adult Start:19-Oct-2016 Instruction Type:Patient Education How to access health informa tion online - Detail Indication:Current non-smoker Start:19-Oct-2016 Instruction Type:Patient Education Patient Instructions Indication:Current non-smoker Start:19-Oct-2016 Instruction Type:Provider Instructions for Treatment How to access health informa tion online Indication:Current non-smoker Start:01-Oct-2016 Instruction Type:Patient Education Patient Instructions Indication:Current non-smoker Start:01-Oct-2016 Instruction Type:Provider Instructions for Treatment How to access health informa tion online Indication:BMI 39.0-39.9,adult Start:19-Apr-2016 Instruction Type:Patient Education How to access health informa tion online - Detail Indication:BMI 39.0-39.9,adult Start:19-Apr-2016 Instruction Type:Patient Education Patient Instructions Indication:BMI 39.0-39.9,adult Start:19-Apr-2016 Instruction Type:Provider Instructions for Treatment How to access health informa tion online Indication:BMI 38.0-38.9,adult Start:20-Feb-2016 Instruction Type:Patient Education How to access health informa tion online - Detail Indication:BMI 38.0-38.9,adult Start:20-Feb-2016 Instruction Type:Patient Education Patient Instructions Indication:BMI 38.0-38.9,adult Start:20-Feb-2016 Instruction Type:Provider Instructions for Treatment How to access health informa tion online Indication:Current non-smoker Start:16-Feb-2016 Instruction Type:Patient Education How to access health informa tion online - Detail Indication:Current non-smoker Start:16-Feb-2016 Instruction Type:Patient Education Patient Instructions Indication:Current non-smoker Start:16-Feb-2016 Instruction Type:Provider Instructions for Treatment How to access health informa tion online Indication:Impaired fasting glucose Start:22-Dec-2015 Instruction Type:Patient Education How to access health informa tion online - Detail Indication:Impaired fasting glucose Start:22-Dec-2015 Instruction Type:Patient Education Patient Instructions Indication:Impaired fasting glucose Start:22-Dec-2015 Instruction Type:Provider Instructions for Treatment Patient Instructions Indication:Stress reaction Start:04-Aug-2015 Instruction Type:Provider Instructions for Treatment Patient Instructions Indication:Impaired fasting glucose Start:03-Mar-2015 Instruction Type:Provider Instructions for Treatment How to access health informa tion online Indication:Need for prophylactic vaccination and inoculation against influenza Start:27-Jan-2015 Instruction Type:Patient Education How to access health informa tion online - Detail Indication:Need for prophylactic vaccination and inoculation against influenza Start:27-Jan-2015 Instruction Type:Patient Education Patient Instructions Indication:Need for prophylactic vaccination and inoculation against influenza Start:27-Jan-2015 Instruction Type:Provider Instructions for Treatment Patient Instructions Indication:Obesity, unspecified Start:01-Nov-2014 Instruction Type:Provider Instructions for Treatment Patient Instructions Indication:Obesity, unspecified Start:22-Apr-2014 Instruction Type:Provider Instructions for Treatment Patient Instructions Indication:Near syncope Start:18-Oct-2013 Instruction Type:Provider Instructions for Treatment Patient Instructions Indication:Depressive disorder Start:25-Sep-2013 Instruction Type:Provider Instructions for Treatment instructions Indication:Depressive disorder Start:15-Mar-2013 Instruction Type:Provider Instructions for Treatment Patient Instructions Indication:Depressive disorder Start:23-Jan-2013 Instruction Type:Provider Instructions for Treatment Patient Instructions Indication:Cyst, kidney, acquired Start:17-Feb-2012 Instruction Type:Provider Instructions for Treatment Patient Instructions Indication:Depressive disorder Start:27-Jan-2012 Instruction Type:Provider Instructions for Treatment Name Dates Details How to access health informa tion online Indication:BMI 36.0-36.9,adult Start:13-Oct-2018 Instruction Type:Patient Education How to access health informa tion online - Detail Indication:BMI 36.0-36.9,adult Start:13-Oct-2018 Instruction Type:Patient Education Patient Instructions Indication:BMI 36.0-36.9,adult Start:13-Oct-2018 Instruction Type:Provider Instructions for Treatment How to access health informa tion online Indication:Current non-smoker Start:14-Jul-2018 Instruction Type:Patient Education How to access health informa tion online - Detail Indication:Current non-smoker Start:14-Jul-2018 Instruction Type:Patient Education Patient Instructions Indication:Current non-smoker Start:14-Jul-2018 Instruction Type:Provider Instructions for Treatment How to access health informa tion online Indication:Current non-smoker Start:22-Jun-2018 Instruction Type:Patient Education How to access health informa tion online - Detail Indication:Current non-smoker Start:22-Jun-2018 Instruction Type:Patient Education Patient Instructions Indication:Sinusitis, bacterial Start:22-Jun-2018 Instruction Type:Provider Instructions for Treatment How to access health informa tion online Indication:Current non-smoker Start:16-Jun-2018 Instruction Type:Patient Education How to access health informa tion online - Detail Indication:Current non-smoker Start:16-Jun-2018 Instruction Type:Patient Education Patient Instructions Indication:Current non-smoker Start:16-Jun-2018 Instruction Type:Provider Instructions for Treatment Patient Instructions Indication:BMI 38.0-38.9,adult Start:23-Jan-2018 Instruction Type:Provider Instructions for Treatment How to access health informa tion online Indication:BMI 38.0-38.9,adult Start:23-Jan-2018 Instruction Type:Patient Education How to access health informa tion online - Detail Indication:BMI 38.0-38.9,adult Start:23-Jan-2018 Instruction Type:Patient Education How to access health informa tion online Indication:Current non-smoker Start:21-Nov-2017 Instruction Type:Patient Education How to access health informa tion online - Detail Indication:Current non-smoker Start:21-Nov-2017 Instruction Type:Patient Education Patient Instructions Indication:Current non-smoker Start:21-Nov-2017 Instruction Type:Provider Instructions for Treatment How to access health informa tion online Indication:BMI 38.0-38.9,adult Start:18-Nov-2017 Instruction Type:Patient Education How to access health informa tion online - Detail Indication:BMI 38.0-38.9,adult Start:18-Nov-2017 Instruction Type:Patient Education Patient Instructions Indication:BMI 38.0-38.9,adult Start:18-Nov-2017 Instruction Type:Provider Instructions for Treatment How to access health informa tion online Indication:Current non-smoker Start:27-Oct-2017 Instruction Type:Patient Education How to access health informa tion online - Detail Indication:Current non-smoker Start:27-Oct-2017 Instruction Type:Patient Education Patient Instructions Indication:Current non-smoker Start:27-Oct-2017 Instruction Type:Provider Instructions for Treatment How to access health informa tion online Indication:Current non-smoker Start:20-Jul-2017 Instruction Type:Patient Education How to access health informa tion online - Detail Indication:Current non-smoker Start:20-Jul-2017 Instruction Type:Patient Education Patient Instructions Indication:Current non-smoker Start:20-Jul-2017 Instruction Type:Provider Instructions for Treatment How to access health informa tion online Indication:Current non-smoker Start:17-Jun-2017 Instruction Type:Patient Education How to access health informa tion online - Detail Indication:Current non-smoker Start:17-Jun-2017 Instruction Type:Patient Education Patient Instructions Indication:Current non-smoker Start:17-Jun-2017 Instruction Type:Provider Instructions for Treatment How to access health informa tion online Indication:BMI 37.0-37.9, adult Start:19-Oct-2016 Instruction Type:Patient Education How to access health informa tion online - Detail Indication:Current non-smoker Start:19-Oct-2016 Instruction Type:Patient Education Patient Instructions Indication:Current non-smoker Start:19-Oct-2016 Instruction Type:Provider Instructions for Treatment How to access health informa tion online Indication:Current non-smoker Start:01-Oct-2016 Instruction Type:Patient Education Patient Instructions Indication:Current non-smoker Start:01-Oct-2016 Instruction Type:Provider Instructions for Treatment How to access health informa tion online Indication:BMI 39.0-39.9,adult Start:19-Apr-2016 Instruction Type:Patient Education How to access health informa tion online - Detail Indication:BMI 39.0-39.9,adult Start:19-Apr-2016 Instruction Type:Patient Education Patient Instructions Indication:BMI 39.0-39.9,adult Start:19-Apr-2016 Instruction Type:Provider Instructions for Treatment How to access health informa tion online Indication:BMI 38.0-38.9,adult Start:20-Feb-2016 Instruction Type:Patient Education How to access health informa tion online - Detail Indication:BMI 38.0-38.9,adult Start:20-Feb-2016 Instruction Type:Patient Education Patient Instructions Indication:BMI 38.0-38.9,adult Start:20-Feb-2016 Instruction Type:Provider Instructions for Treatment How to access health informa tion online Indication:Current non-smoker Start:16-Feb-2016 Instruction Type:Patient Education How to access health informa tion online - Detail Indication:Current non-smoker Start:16-Feb-2016 Instruction Type:Patient Education Patient Instructions Indication:Current non-smoker Start:16-Feb-2016 Instruction Type:Provider Instructions for Treatment How to access health informa tion online Indication:Impaired fasting glucose Start:22-Dec-2015 Instruction Type:Patient Education How to access health informa tion online - Detail Indication:Impaired fasting glucose Start:22-Dec-2015 Instruction Type:Patient Education Patient Instructions Indication:Impaired fasting glucose Start:22-Dec-2015 Instruction Type:Provider Instructions for Treatment Patient Instructions Indication:Stress reaction Start:04-Aug-2015 Instruction Type:Provider Instructions for Treatment Patient Instructions Indication:Impaired fasting glucose Start:03-Mar-2015 Instruction Type:Provider Instructions for Treatment How to access health informa tion online Indication:Need for prophylactic vaccination and inoculation against influenza Start:27-Jan-2015 Instruction Type:Patient Education How to access health informa tion online - Detail Indication:Need for prophylactic vaccination and inoculation against influenza Start:27-Jan-2015 Instruction Type:Patient Education Patient Instructions Indication:Need for prophylactic vaccination and inoculation against influenza Start:27-Jan-2015 Instruction Type:Provider Instructions for Treatment Patient Instructions Indication:Obesity, unspecified Start:01-Nov-2014 Instruction Type:Provider Instructions for Treatment Patient Instructions Indication:Obesity, unspecified Start:22-Apr-2014 Instruction Type:Provider Instructions for Treatment Patient Instructions Indication:Near syncope Start:18-Oct-2013 Instruction Type:Provider Instructions for Treatment Patient Instructions Indication:Depressive disorder Start:25-Sep-2013 Instruction Type:Provider Instructions for Treatment instructions Indication:Depressive disorder Start:15-Mar-2013 Instruction Type:Provider Instructions for Treatment Patient Instructions Indication:Depressive disorder Start:23-Jan-2013 Instruction Type:Provider Instructions for Treatment Patient Instructions Indication:Cyst, kidney, acquired Start:17-Feb-2012 Instruction Type:Provider Instructions for Treatment Patient Instructions Indication:Depressive disorder Start:27-Jan-2012 Instruction Type:Provider Instructions for Treatment Name Dates Details How to access health informa tion online Indication:BMI 35.0-35.9,adult Start:04-Jul-2019 Instruction Type:Patient Education How to access health informa tion online - Detail Indication:BMI 35.0-35.9,adult Start:04-Jul-2019 Instruction Type:Patient Education Patient Instructions Indication:BMI 35.0-35.9,adult Start:04-Jul-2019 Instruction Type:Provider Instructions for Treatment How to access health informa tion online Indication:Anxiety Start:18-Apr-2019 Instruction Type:Patient Education How to access health informa tion online - Detail Indication:Anxiety Start:18-Apr-2019 Instruction Type:Patient Education Patient Instructions Indication:Anxiety Start:18-Apr-2019 Instruction Type:Provider Instructions for Treatment How to access health informa tion online Indication:BMI 35.0-35.9,adult Start:12-Apr-2019 Instruction Type:Patient Education How to access health informa tion online - Detail Indication:BMI 35.0-35.9,adult Start:12-Apr-2019 Instruction Type:Patient Education Patient Instructions Indication:BMI 35.0-35.9,adult Start:12-Apr-2019 Instruction Type:Provider Instructions for Treatment How to access health informa tion online Indication:BMI 36.0-36.9,adult Start:13-Oct-2018 Instruction Type:Patient Education How to access health informa tion online - Detail Indication:BMI 36.0-36.9,adult Start:13-Oct-2018 Instruction Type:Patient Education Patient Instructions Indication:BMI 36.0-36.9,adult Start:13-Oct-2018 Instruction Type:Provider Instructions for Treatment How to access health informa tion online Indication:Current non-smoker Start:14-Jul-2018 Instruction Type:Patient Education How to access health informa tion online - Detail Indication:Current non-smoker Start:14-Jul-2018 Instruction Type:Patient Education Patient Instructions Indication:Current non-smoker Start:14-Jul-2018 Instruction Type:Provider Instructions for Treatment How to access health informa tion online Indication:Current non-smoker Start:22-Jun-2018 Instruction Type:Patient Education How to access health informa tion online - Detail Indication:Current non-smoker Start:22-Jun-2018 Instruction Type:Patient Education Patient Instructions Indication:Sinusitis, bacterial Start:22-Jun-2018 Instruction Type:Provider Instructions for Treatment How to access health informa tion online Indication:Current non-smoker Start:16-Jun-2018 Instruction Type:Patient Education How to access health informa tion online - Detail Indication:Current non-smoker Start:16-Jun-2018 Instruction Type:Patient Education Patient Instructions Indication:Current non-smoker Start:16-Jun-2018 Instruction Type:Provider Instructions for Treatment Patient Instructions Indication:BMI 38.0-38.9,adult Start:23-Jan-2018 Instruction Type:Provider Instructions for Treatment How to access health informa tion online Indication:BMI 38.0-38.9,adult Start:23-Jan-2018 Instruction Type:Patient Education How to access health informa tion online - Detail Indication:BMI 38.0-38.9,adult Start:23-Jan-2018 Instruction Type:Patient Education How to access health informa tion online Indication:Current non-smoker Start:21-Nov-2017 Instruction Type:Patient Education How to access health informa tion online - Detail Indication:Current non-smoker Start:21-Nov-2017 Instruction Type:Patient Education Patient Instructions Indication:Current non-smoker Start:21-Nov-2017 Instruction Type:Provider Instructions for Treatment How to access health informa tion online Indication:BMI 38.0-38.9,adult Start:18-Nov-2017 Instruction Type:Patient Education How to access health informa tion online - Detail Indication:BMI 38.0-38.9,adult Start:18-Nov-2017 Instruction Type:Patient Education Patient Instructions Indication:BMI 38.0-38.9,adult Start:18-Nov-2017 Instruction Type:Provider Instructions for Treatment How to access health informa tion online Indication:Current non-smoker Start:27-Oct-2017 Instruction Type:Patient Education How to access health informa tion online - Detail Indication:Current non-smoker Start:27-Oct-2017 Instruction Type:Patient Education Patient Instructions Indication:Current non-smoker Start:27-Oct-2017 Instruction Type:Provider Instructions for Treatment How to access health informa tion online Indication:Current non-smoker Start:20-Jul-2017 Instruction Type:Patient Education How to access health informa tion online - Detail Indication:Current non-smoker Start:20-Jul-2017 Instruction Type:Patient Education Patient Instructions Indication:Current non-smoker Start:20-Jul-2017 Instruction Type:Provider Instructions for Treatment How to access health informa tion online Indication:Current non-smoker Start:17-Jun-2017 Instruction Type:Patient Education How to access health informa tion online - Detail Indication:Current non-smoker Start:17-Jun-2017 Instruction Type:Patient Education Patient Instructions Indication:Current non-smoker Start:17-Jun-2017 Instruction Type:Provider Instructions for Treatment How to access health informa tion online Indication:BMI 37.0-37.9, adult Start:19-Oct-2016 Instruction Type:Patient Education How to access health informa tion online - Detail Indication:Current non-smoker Start:19-Oct-2016 Instruction Type:Patient Education Patient Instructions Indication:Current non-smoker Start:19-Oct-2016 Instruction Type:Provider Instructions for Treatment How to access health informa tion online Indication:Current non-smoker Start:01-Oct-2016 Instruction Type:Patient Education Patient Instructions Indication:Current non-smoker Start:01-Oct-2016 Instruction Type:Provider Instructions for Treatment How to access health informa tion online Indication:BMI 39.0-39.9,adult Start:19-Apr-2016 Instruction Type:Patient Education How to access health informa tion online - Detail Indication:BMI 39.0-39.9,adult Start:19-Apr-2016 Instruction Type:Patient Education Patient Instructions Indication:BMI 39.0-39.9,adult Start:19-Apr-2016 Instruction Type:Provider Instructions for Treatment How to access health informa tion online Indication:BMI 38.0-38.9,adult Start:20-Feb-2016 Instruction Type:Patient Education How to access health informa tion online - Detail Indication:BMI 38.0-38.9,adult Start:20-Feb-2016 Instruction Type:Patient Education Patient Instructions Indication:BMI 38.0-38.9,adult Start:20-Feb-2016 Instruction Type:Provider Instructions for Treatment How to access health informa tion online Indication:Current non-smoker Start:16-Feb-2016 Instruction Type:Patient Education How to access health informa tion online - Detail Indication:Current non-smoker Start:16-Feb-2016 Instruction Type:Patient Education Patient Instructions Indication:Current non-smoker Start:16-Feb-2016 Instruction Type:Provider Instructions for Treatment How to access health informa tion online Indication:Impaired fasting glucose Start:22-Dec-2015 Instruction Type:Patient Education How to access health informa tion online - Detail Indication:Impaired fasting glucose Start:22-Dec-2015 Instruction Type:Patient Education Patient Instructions Indication:Impaired fasting glucose Start:22-Dec-2015 Instruction Type:Provider Instructions for Treatment Patient Instructions Indication:Stress reaction Start:04-Aug-2015 Instruction Type:Provider Instructions for Treatment Patient Instructions Indication:Impaired fasting glucose Start:03-Mar-2015 Instruction Type:Provider Instructions for Treatment How to access health informa tion online Indication:Need for prophylactic vaccination and inoculation against influenza Start:27-Jan-2015 Instruction Type:Patient Education How to access health informa tion online - Detail Indication:Need for prophylactic vaccination and inoculation against influenza Start:27-Jan-2015 Instruction Type:Patient Education Patient Instructions Indication:Need for prophylactic vaccination and inoculation against influenza Start:27-Jan-2015 Instruction Type:Provider Instructions for Treatment Patient Instructions Indication:Obesity, unspecified Start:01-Nov-2014 Instruction Type:Provider Instructions for Treatment Patient Instructions Indication:Obesity, unspecified Start:22-Apr-2014 Instruction Type:Provider Instructions for Treatment Patient Instructions Indication:Near syncope Start:18-Oct-2013 Instruction Type:Provider Instructions for Treatment Patient Instructions Indication:Depressive disorder Start:25-Sep-2013 Instruction Type:Provider Instructions for Treatment instructions Indication:Depressive disorder Start:15-Mar-2013 Instruction Type:Provider Instructions for Treatment Patient Instructions Indication:Depressive disorder Start:23-Jan-2013 Instruction Type:Provider Instructions for Treatment Patient Instructions Indication:Cyst, kidney, acquired Start:17-Feb-2012 Instruction Type:Provider Instructions for Treatment Patient Instructions Indication:Depressive disorder Start:27-Jan-2012 Instruction Type:Provider Instructions for Treatment Name Dates Details How to access health informa tion online Indication:Non-smoker Start:26-Nov-2019 Instruction Type:Patient Education How to access health informa tion online - Detail Indication:Non-smoker Start:26-Nov-2019 Instruction Type:Patient Education Patient Instructions Indication:Non-smoker Start:26-Nov-2019 Instruction Type:Provider Instructions for Treatment How to access health informa tion online Indication:BMI 35.0-35.9,adult Start:04-Jul-2019 Instruction Type:Patient Education How to access health informa tion online - Detail Indication:BMI 35.0-35.9,adult Start:04-Jul-2019 Instruction Type:Patient Education Patient Instructions Indication:BMI 35.0-35.9,adult Start:04-Jul-2019 Instruction Type:Provider Instructions for Treatment How to access health informa tion online Indication:Anxiety Start:18-Apr-2019 Instruction Type:Patient Education How to access health informa tion online - Detail Indication:Anxiety Start:18-Apr-2019 Instruction Type:Patient Education Patient Instructions Indication:Anxiety Start:18-Apr-2019 Instruction Type:Provider Instructions for Treatment How to access health informa tion online Indication:BMI 35.0-35.9,adult Start:12-Apr-2019 Instruction Type:Patient Education How to access health informa tion online - Detail Indication:BMI 35.0-35.9,adult Start:12-Apr-2019 Instruction Type:Patient Education Patient Instructions Indication:BMI 35.0-35.9,adult Start:12-Apr-2019 Instruction Type:Provider Instructions for Treatment How to access health informa tion online Indication:BMI 36.0-36.9,adult Start:13-Oct-2018 Instruction Type:Patient Education How to access health informa tion online - Detail Indication:BMI 36.0-36.9,adult Start:13-Oct-2018 Instruction Type:Patient Education Patient Instructions Indication:BMI 36.0-36.9,adult Start:13-Oct-2018 Instruction Type:Provider Instructions for Treatment How to access health informa tion online Indication:Current non-smoker Start:14-Jul-2018 Instruction Type:Patient Education How to access health informa tion online - Detail Indication:Current non-smoker Start:14-Jul-2018 Instruction Type:Patient Education Patient Instructions Indication:Current non-smoker Start:14-Jul-2018 Instruction Type:Provider Instructions for Treatment How to access health informa tion online Indication:Current non-smoker Start:22-Jun-2018 Instruction Type:Patient Education How to access health informa tion online - Detail Indication:Current non-smoker Start:22-Jun-2018 Instruction Type:Patient Education Patient Instructions Indication:Sinusitis, bacterial Start:22-Jun-2018 Instruction Type:Provider Instructions for Treatment How to access health informa tion online Indication:Current non-smoker Start:16-Jun-2018 Instruction Type:Patient Education How to access health informa tion online - Detail Indication:Current non-smoker Start:16-Jun-2018 Instruction Type:Patient Education Patient Instructions Indication:Current non-smoker Start:16-Jun-2018 Instruction Type:Provider Instructions for Treatment Patient Instructions Indication:BMI 38.0-38.9,adult Start:23-Jan-2018 Instruction Type:Provider Instructions for Treatment How to access health informa tion online Indication:BMI 38.0-38.9,adult Start:23-Jan-2018 Instruction Type:Patient Education How to access health informa tion online - Detail Indication:BMI 38.0-38.9,adult Start:23-Jan-2018 Instruction Type:Patient Education How to access health informa tion online Indication:Current non-smoker Start:21-Nov-2017 Instruction Type:Patient Education How to access health informa tion online - Detail Indication:Current non-smoker Start:21-Nov-2017 Instruction Type:Patient Education Patient Instructions Indication:Current non-smoker Start:21-Nov-2017 Instruction Type:Provider Instructions for Treatment How to access health informa tion online Indication:BMI 38.0-38.9,adult Start:18-Nov-2017 Instruction Type:Patient Education How to access health informa tion online - Detail Indication:BMI 38.0-38.9,adult Start:18-Nov-2017 Instruction Type:Patient Education Patient Instructions Indication:BMI 38.0-38.9,adult Start:18-Nov-2017 Instruction Type:Provider Instructions for Treatment How to access health informa tion online Indication:Current non-smoker Start:27-Oct-2017 Instruction Type:Patient Education How to access health informa tion online - Detail Indication:Current non-smoker Start:27-Oct-2017 Instruction Type:Patient Education Patient Instructions Indication:Current non-smoker Start:27-Oct-2017 Instruction Type:Provider Instructions for Treatment How to access health informa tion online Indication:Current non-smoker Start:20-Jul-2017 Instruction Type:Patient Education How to access health informa tion online - Detail Indication:Current non-smoker Start:20-Jul-2017 Instruction Type:Patient Education Patient Instructions Indication:Current non-smoker Start:20-Jul-2017 Instruction Type:Provider Instructions for Treatment How to access health informa tion online Indication:Current non-smoker Start:17-Jun-2017 Instruction Type:Patient Education How to access health informa tion online - Detail Indication:Current non-smoker Start:17-Jun-2017 Instruction Type:Patient Education Patient Instructions Indication:Current non-smoker Start:17-Jun-2017 Instruction Type:Provider Instructions for Treatment How to access health informa tion online Indication:BMI 37.0-37.9, adult Start:19-Oct-2016 Instruction Type:Patient Education How to access health informa tion online - Detail Indication:Current non-smoker Start:19-Oct-2016 Instruction Type:Patient Education Patient Instructions Indication:Current non-smoker Start:19-Oct-2016 Instruction Type:Provider Instructions for Treatment How to access health informa tion online Indication:Current non-smoker Start:01-Oct-2016 Instruction Type:Patient Education Patient Instructions Indication:Current non-smoker Start:01-Oct-2016 Instruction Type:Provider Instructions for Treatment How to access health informa tion online Indication:BMI 39.0-39.9,adult Start:19-Apr-2016 Instruction Type:Patient Education How to access health informa tion online - Detail Indication:BMI 39.0-39.9,adult Start:19-Apr-2016 Instruction Type:Patient Education Patient Instructions Indication:BMI 39.0-39.9,adult Start:19-Apr-2016 Instruction Type:Provider Instructions for Treatment How to access health informa tion online Indication:BMI 38.0-38.9,adult Start:20-Feb-2016 Instruction Type:Patient Education How to access health informa tion online - Detail Indication:BMI 38.0-38.9,adult Start:20-Feb-2016 Instruction Type:Patient Education Patient Instructions Indication:BMI 38.0-38.9,adult Start:20-Feb-2016 Instruction Type:Provider Instructions for Treatment How to access health informa [employer] online Indication:Current non-smoker Start:16-Feb-2016 Instruction Type:Patient Education How to access health informa tion online - Detail Indication:Current non-smoker Start:16-Feb-2016 Instruction Type:Patient Education Patient Instructions Indication:Current non-smoker Start:16-Feb-2016 Instruction Type:Provider Instructions for Treatment How to access health informa tion online Indication:Impaired fasting glucose Start:22-Dec-2015 Instruction Type:Patient Education How to access health informa tion online - Detail Indication:Impaired fasting glucose Start:22-Dec-2015 Instruction Type:Patient Education Patient Instructions Indication:Impaired fasting glucose Start:22-Dec-2015 Instruction Type:Provider Instructions for Treatment Patient Instructions Indication:Stress reaction Start:04-Aug-2015 Instruction Type:Provider Instructions for Treatment Patient Instructions Indication:Impaired fasting glucose Start:03-Mar-2015 Instruction Type:Provider Instructions for Treatment How to access health informa tion online Indication:Need for prophylactic vaccination and inoculation against influenza Start:27-Jan-2015 Instruction Type:Patient Education How to access health informa tion online - Detail Indication:Need for prophylactic vaccination and inoculation against influenza Start:27-Jan-2015 Instruction Type:Patient Education Patient Instructions Indication:Need for prophylactic vaccination and inoculation against influenza Start:27-Jan-2015 Instruction Type:Provider Instructions for Treatment Patient Instructions Indication:Obesity, unspecified Start:01-Nov-2014 Instruction Type:Provider Instructions for Treatment Patient Instructions Indication:Obesity, unspecified Start:22-Apr-2014 Instruction Type:Provider Instructions for Treatment Patient Instructions Indication:Near syncope Start:18-Oct-2013 Instruction Type:Provider Instructions for Treatment Patient Instructions Indication:Depressive disorder Start:25-Sep-2013 Instruction Type:Provider Instructions for Treatment instructions Indication:Depressive disorder Start:15-Mar-2013 Instruction Type:Provider Instructions for Treatment Patient Instructions Indication:Depressive disorder Start:23-Jan-2013 Instruction Type:Provider Instructions for Treatment Patient Instructions Indication:Cyst, kidney, acquired Start:17-Feb-2012 Instruction Type:Provider Instructions for Treatment Patient Instructions Indication:Depressive disorder Start:27-Jan-2012 Instruction Type:Provider Instructions for Treatment Name Dates Details How to access health informa tion online Indication:Non-smoker Start:26-Nov-2019 Instruction Type:Patient Education How to access health informa tion online - Detail Indication:Non-smoker Start:26-Nov-2019 Instruction Type:Patient Education Patient Instructions Indication:Non-smoker Start:26-Nov-2019 Instruction Type:Provider Instructions for Treatment How to access health informa tion online Indication:BMI 35.0-35.9,adult Start:04-Jul-2019 Instruction Type:Patient Education How to access health informa tion online - Detail Indication:BMI 35.0-35.9,adult Start:04-Jul-2019 Instruction Type:Patient Education Patient Instructions Indication:BMI 35.0-35.9,adult Start:04-Jul-2019 Instruction Type:Provider Instructions for Treatment How to access health informa tion online Indication:Anxiety Start:18-Apr-2019 Instruction Type:Patient Education How to access health informa tion online - Detail Indication:Anxiety Start:18-Apr-2019 Instruction Type:Patient Education Patient Instructions Indication:Anxiety Start:18-Apr-2019 Instruction Type:Provider Instructions for Treatment How to access health informa tion online Indication:BMI 35.0-35.9,adult Start:12-Apr-2019 Instruction Type:Patient Education How to access health informa tion online - Detail Indication:BMI 35.0-35.9,adult Start:12-Apr-2019 Instruction Type:Patient Education Patient Instructions Indication:BMI 35.0-35.9,adult Start:12-Apr-2019 Instruction Type:Provider Instructions for Treatment How to access health informa tion online Indication:BMI 36.0-36.9,adult Start:13-Oct-2018 Instruction Type:Patient Education How to access health informa tion online - Detail Indication:BMI 36.0-36.9,adult Start:13-Oct-2018 Instruction Type:Patient Education Patient Instructions Indication:BMI 36.0-36.9,adult Start:13-Oct-2018 Instruction Type:Provider Instructions for Treatment How to access health informa tion online Indication:Current non-smoker Start:14-Jul-2018 Instruction Type:Patient Education How to access health informa tion online - Detail Indication:Current non-smoker Start:14-Jul-2018 Instruction Type:Patient Education Patient Instructions Indication:Current non-smoker Start:14-Jul-2018 Instruction Type:Provider Instructions for Treatment How to access health informa tion online Indication:Current non-smoker Start:22-Jun-2018 Instruction Type:Patient Education How to access health informa tion online - Detail Indication:Current non-smoker Start:22-Jun-2018 Instruction Type:Patient Education Patient Instructions Indication:Sinusitis, bacterial Start:22-Jun-2018 Instruction Type:Provider Instructions for Treatment How to access health informa tion online Indication:Current non-smoker Start:16-Jun-2018 Instruction Type:Patient Education How to access health informa tion online - Detail Indication:Current non-smoker Start:16-Jun-2018 Instruction Type:Patient Education Patient Instructions Indication:Current non-smoker Start:16-Jun-2018 Instruction Type:Provider Instructions for Treatment Patient Instructions Indication:BMI 38.0-38.9,adult Start:23-Jan-2018 Instruction Type:Provider Instructions for Treatment How to access health informa tion online Indication:BMI 38.0-38.9,adult Start:23-Jan-2018 Instruction Type:Patient Education How to access health informa tion online - Detail Indication:BMI 38.0-38.9,adult Start:23-Jan-2018 Instruction Type:Patient Education How to access health informa tion online Indication:Current non-smoker Start:21-Nov-2017 Instruction Type:Patient Education How to access health informa tion online - Detail Indication:Current non-smoker Start:21-Nov-2017 Instruction Type:Patient Education Patient Instructions Indication:Current non-smoker Start:21-Nov-2017 Instruction Type:Provider Instructions for Treatment How to access health informa tion online Indication:BMI 38.0-38.9,adult Start:18-Nov-2017 Instruction Type:Patient Education How to access health informa tion online - Detail Indication:BMI 38.0-38.9,adult Start:18-Nov-2017 Instruction Type:Patient Education Patient Instructions Indication:BMI 38.0-38.9,adult Start:18-Nov-2017 Instruction Type:Provider Instructions for Treatment How to access health informa tion online Indication:Current non-smoker Start:27-Oct-2017 Instruction Type:Patient Education How to access health informa tion online - Detail Indication:Current non-smoker Start:27-Oct-2017 Instruction Type:Patient Education Patient Instructions Indication:Current non-smoker Start:27-Oct-2017 Instruction Type:Provider Instructions for Treatment How to access health informa tion online Indication:Current non-smoker Start:20-Jul-2017 Instruction Type:Patient Education How to access health informa tion online - Detail Indication:Current non-smoker Start:20-Jul-2017 Instruction Type:Patient Education Patient Instructions Indication:Current non-smoker Start:20-Jul-2017 Instruction Type:Provider Instructions for Treatment How to access health informa tion online Indication:Current non-smoker Start:17-Jun-2017 Instruction Type:Patient Education How to access health informa tion online - Detail Indication:Current non-smoker Start:17-Jun-2017 Instruction Type:Patient Education Patient Instructions Indication:Current non-smoker Start:17-Jun-2017 Instruction Type:Provider Instructions for Treatment How to access health informa tion online Indication:BMI 37.0-37.9, adult Start:19-Oct-2016 Instruction Type:Patient Education How to access health informa tion online - Detail Indication:Current non-smoker Start:19-Oct-2016 Instruction Type:Patient Education Patient Instructions Indication:Current non-smoker Start:19-Oct-2016 Instruction Type:Provider Instructions for Treatment How to access health informa tion online Indication:Current non-smoker Start:01-Oct-2016 Instruction Type:Patient Education Patient Instructions Indication:Current non-smoker Start:01-Oct-2016 Instruction Type:Provider Instructions for Treatment How to access health informa tion online Indication:BMI 39.0-39.9,adult Start:19-Apr-2016 Instruction Type:Patient Education How to access health informa tion online - Detail Indication:BMI 39.0-39.9,adult Start:19-Apr-2016 Instruction Type:Patient Education Patient Instructions Indication:BMI 39.0-39.9,adult Start:19-Apr-2016 Instruction Type:Provider Instructions for Treatment How to access health informa tion online Indication:BMI 38.0-38.9,adult Start:20-Feb-2016 Instruction Type:Patient Education How to access health informa tion online - Detail Indication:BMI 38.0-38.9,adult Start:20-Feb-2016 Instruction Type:Patient Education Patient Instructions Indication:BMI 38.0-38.9,adult Start:20-Feb-2016 Instruction Type:Provider Instructions for Treatment How to access health [employer] online Indication:Current non-smoker Start:16-Feb-2016 Instruction Type:Patient Education How to access health informa tion online - Detail Indication:Current non-smoker Start:16-Feb-2016 Instruction Type:Patient Education Patient Instructions Indication:Current non-smoker Start:16-Feb-2016 Instruction Type:Provider Instructions for Treatment How to access health informa [employer] online Indication:Impaired fasting glucose Start:22-Dec-2015 Instruction Type:Patient Education How to access health informa tion online - Detail Indication:Impaired fasting glucose Start:22-Dec-2015 Instruction Type:Patient Education Patient Instructions Indication:Impaired fasting glucose Start:22-Dec-2015 Instruction Type:Provider Instructions for Treatment Patient Instructions Indication:Stress reaction Start:04-Aug-2015 Instruction Type:Provider Instructions for Treatment Patient Instructions Indication:Impaired fasting glucose Start:03-Mar-2015 Instruction Type:Provider Instructions for Treatment How to access [employer] informa [employer] online Indication:Need for prophylactic vaccination and inoculation against influenza Start:27-Jan-2015 Instruction Type:Patient Education How to access health informa tion online - Detail Indication:Need for prophylactic vaccination and inoculation against influenza Start:27-Jan-2015 Instruction Type:Patient Education Patient Instructions Indication:Need for prophylactic vaccination and inoculation against influenza Start:27-Jan-2015 Instruction Type:Provider Instructions for Treatment Patient Instructions Indication:Obesity, unspecified Start:01-Nov-2014 Instruction Type:Provider Instructions for Treatment Patient Instructions Indication:Obesity, unspecified Start:22-Apr-2014 Instruction Type:Provider Instructions for Treatment Patient Instructions Indication:Near syncope Start:18-Oct-2013 Instruction Type:Provider Instructions for Treatment Patient Instructions Indication:Depressive disorder Start:25-Sep-2013 Instruction Type:Provider Instructions for Treatment instructions Indication:Depressive disorder Start:15-Mar-2013 Instruction Type:Provider Instructions for Treatment Patient Instructions Indication:Depressive disorder Start:23-Jan-2013 Instruction Type:Provider Instructions for Treatment Patient Instructions Indication:Cyst, kidney, acquired Start:17-Feb-2012 Instruction Type:Provider Instructions for Treatment Patient Instructions Indication:Depressive disorder Start:27-Jan-2012 Instruction Type:Provider Instructions for Treatment Name Dates Details How to access [employer] Indication:Non-smoker Start:26-Nov-2019 Instruction Type:Patient Education How to access health informa tion online - Detail Indication:Non-smoker Start:26-Nov-2019 Instruction Type:Patient Education Patient Instructions Indication:Non-smoker Start:26-Nov-2019 Instruction Type:Provider Instructions for Treatment How to access health informa tion online Indication:BMI 35.0-35.9,adult Start:04-Jul-2019 Instruction Type:Patient Education How to access health informa tion online - Detail Indication:BMI 35.0-35.9,adult Start:04-Jul-2019 Instruction Type:Patient Education Patient Instructions Indication:BMI 35.0-35.9,adult Start:04-Jul-2019 Instruction Type:Provider Instructions for Treatment How to access health informa tion online Indication:Anxiety Start:18-Apr-2019 Instruction Type:Patient Education How to access health informa tion online - Detail Indication:Anxiety Start:18-Apr-2019 Instruction Type:Patient Education Patient Instructions Indication:Anxiety Start:18-Apr-2019 Instruction Type:Provider Instructions for Treatment How to access health informa tion online Indication:BMI 35.0-35.9,adult Start:12-Apr-2019 Instruction Type:Patient Education How to access health informa tion online - Detail Indication:BMI 35.0-35.9,adult Start:12-Apr-2019 Instruction Type:Patient Education Patient Instructions Indication:BMI 35.0-35.9,adult Start:12-Apr-2019 Instruction Type:Provider Instructions for Treatment How to access health informa tion online Indication:BMI 36.0-36.9,adult Start:13-Oct-2018 Instruction Type:Patient Education How to access health informa tion online - Detail Indication:BMI 36.0-36.9,adult Start:13-Oct-2018 Instruction Type:Patient Education Patient Instructions Indication:BMI 36.0-36.9,adult Start:13-Oct-2018 Instruction Type:Provider Instructions for Treatment How to access health informa tion online Indication:Current non-smoker Start:14-Jul-2018 Instruction Type:Patient Education How to access health informa tion online - Detail Indication:Current non-smoker Start:14-Jul-2018 Instruction Type:Patient Education Patient Instructions Indication:Current non-smoker Start:14-Jul-2018 Instruction Type:Provider Instructions for Treatment How to access health informa tion online Indication:Current non-smoker Start:22-Jun-2018 Instruction Type:Patient Education How to access health informa tion online - Detail Indication:Current non-smoker Start:22-Jun-2018 Instruction Type:Patient Education Patient Instructions Indication:Sinusitis, bacterial Start:22-Jun-2018 Instruction Type:Provider Instructions for Treatment How to access health informa tion online Indication:Current non-smoker Start:16-Jun-2018 Instruction Type:Patient Education How to access health informa tion online - Detail Indication:Current non-smoker Start:16-Jun-2018 Instruction Type:Patient Education Patient Instructions Indication:Current non-smoker Start:16-Jun-2018 Instruction Type:Provider Instructions for Treatment Patient Instructions Indication:BMI 38.0-38.9,adult Start:23-Jan-2018 Instruction Type:Provider Instructions for Treatment How to access health informa tion online Indication:BMI 38.0-38.9,adult Start:23-Jan-2018 Instruction Type:Patient Education How to access health informa tion online - Detail Indication:BMI 38.0-38.9,adult Start:23-Jan-2018 Instruction Type:Patient Education How to access health informa tion online Indication:Current non-smoker Start:21-Nov-2017 Instruction Type:Patient Education How to access health informa tion online - Detail Indication:Current non-smoker Start:21-Nov-2017 Instruction Type:Patient Education Patient Instructions Indication:Current non-smoker Start:21-Nov-2017 Instruction Type:Provider Instructions for Treatment How to access health informa tion online Indication:BMI 38.0-38.9,adult Start:18-Nov-2017 Instruction Type:Patient Education How to access health informa tion online - Detail Indication:BMI 38.0-38.9,adult Start:18-Nov-2017 Instruction Type:Patient Education Patient Instructions Indication:BMI 38.0-38.9,adult Start:18-Nov-2017 Instruction Type:Provider Instructions for Treatment How to access health informa tion online Indication:Current non-smoker Start:27-Oct-2017 Instruction Type:Patient Education How to access health informa tion online - Detail Indication:Current non-smoker Start:27-Oct-2017 Instruction Type:Patient Education Patient Instructions Indication:Current non-smoker Start:27-Oct-2017 Instruction Type:Provider Instructions for Treatment How to access health informa tion online Indication:Current non-smoker Start:20-Jul-2017 Instruction Type:Patient Education How to access health informa tion online - Detail Indication:Current non-smoker Start:20-Jul-2017 Instruction Type:Patient Education Patient Instructions Indication:Current non-smoker Start:20-Jul-2017 Instruction Type:Provider Instructions for Treatment How to access health informa tion online Indication:Current non-smoker Start:17-Jun-2017 Instruction Type:Patient Education How to access health informa tion online - Detail Indication:Current non-smoker Start:17-Jun-2017 Instruction Type:Patient Education Patient Instructions Indication:Current non-smoker Start:17-Jun-2017 Instruction Type:Provider Instructions for Treatment How to access health informa tion online Indication:BMI 37.0-37.9, adult Start:19-Oct-2016 Instruction Type:Patient Education How to access health informa tion online - Detail Indication:Current non-smoker Start:19-Oct-2016 Instruction Type:Patient Education Patient Instructions Indication:Current non-smoker Start:19-Oct-2016 Instruction Type:Provider Instructions for Treatment How to access health informa tion online Indication:Current non-smoker Start:01-Oct-2016 Instruction Type:Patient Education Patient Instructions Indication:Current non-smoker Start:01-Oct-2016 Instruction Type:Provider Instructions for Treatment How to access health informa tion online Indication:BMI 39.0-39.9,adult Start:19-Apr-2016 Instruction Type:Patient Education How to access health informa tion online - Detail Indication:BMI 39.0-39.9,adult Start:19-Apr-2016 Instruction Type:Patient Education Patient Instructions Indication:BMI 39.0-39.9,adult Start:19-Apr-2016 Instruction Type:Provider Instructions for Treatment How to access health informa tion online Indication:BMI 38.0-38.9,adult Start:20-Feb-2016 Instruction Type:Patient Education How to access health informa tion online - Detail Indication:BMI 38.0-38.9,adult Start:20-Feb-2016 Instruction Type:Patient Education Patient Instructions Indication:BMI 38.0-38.9,adult Start:20-Feb-2016 Instruction Type:Provider Instructions for Treatment How to access health informa tion online Indication:Current non-smoker Start:16-Feb-2016 Instruction Type:Patient Education How to access health informa tion online - Detail Indication:Current non-smoker Start:16-Feb-2016 Instruction Type:Patient Education Patient Instructions Indication:Current non-smoker Start:16-Feb-2016 Instruction Type:Provider Instructions for Treatment How to access health informa tion online Indication:Impaired fasting glucose Start:22-Dec-2015 Instruction Type:Patient Education How to access health informa tion online - Detail Indication:Impaired fasting glucose Start:22-Dec-2015 Instruction Type:Patient Education Patient Instructions Indication:Impaired fasting glucose Start:22-Dec-2015 Instruction Type:Provider Instructions for Treatment Patient Instructions Indication:Stress reaction Start:04-Aug-2015 Instruction Type:Provider Instructions for Treatment Patient Instructions Indication:Impaired fasting glucose Start:03-Mar-2015 Instruction Type:Provider Instructions for Treatment How to access health informa tion online Indication:Need for prophylactic vaccination and inoculation against influenza Start:27-Jan-2015 Instruction Type:Patient Education How to access health informa tion online - Detail Indication:Need for prophylactic vaccination and inoculation against influenza Start:27-Jan-2015 Instruction Type:Patient Education Patient Instructions Indication:Need for prophylactic vaccination and inoculation against influenza Start:27-Jan-2015 Instruction Type:Provider Instructions for Treatment Patient Instructions Indication:Obesity, unspecified Start:01-Nov-2014 Instruction Type:Provider Instructions for Treatment Patient Instructions Indication:Obesity, unspecified Start:22-Apr-2014 Instruction Type:Provider Instructions for Treatment Patient Instructions Indication:Near syncope Start:18-Oct-2013 Instruction Type:Provider Instructions for Treatment Patient Instructions Indication:Depressive disorder Start:25-Sep-2013 Instruction Type:Provider Instructions for Treatment instructions Indication:Depressive disorder Start:15-Mar-2013 Instruction Type:Provider Instructions for Treatment Patient Instructions Indication:Depressive disorder Start:23-Jan-2013 Instruction Type:Provider Instructions for Treatment Patient Instructions Indication:Cyst, kidney, acquired Start:17-Feb-2012 Instruction Type:Provider Instructions for Treatment Patient Instructions Indication:Depressive disorder Start:27-Jan-2012 Instruction Type:Provider Instructions for Treatment Name Dates Details How to access health informa tion online Indication:Non-smoker Start:08-Feb-2020 Instruction Type:Patient Education How to access health informa tion online - Detail Indication:Non-smoker Start:08-Feb-2020 Instruction Type:Patient Education Patient Instructions Indication:Non-smoker Start:08-Feb-2020 Instruction Type:Provider Instructions for Treatment How to access health informa tion online Indication:Non-smoker Start:26-Nov-2019 Instruction Type:Patient Education How to access health informa tion online - Detail Indication:Non-smoker Start:26-Nov-2019 Instruction Type:Patient Education Patient Instructions Indication:Non-smoker Start:26-Nov-2019 Instruction Type:Provider Instructions for Treatment How to access health informa tion online Indication:BMI 35.0-35.9,adult Start:04-Jul-2019 Instruction Type:Patient Education How to access health informa tion online - Detail Indication:BMI 35.0-35.9,adult Start:04-Jul-2019 Instruction Type:Patient Education Patient Instructions Indication:BMI 35.0-35.9,adult Start:04-Jul-2019 Instruction Type:Provider Instructions for Treatment How to access health informa tion online Indication:Anxiety Start:18-Apr-2019 Instruction Type:Patient Education How to access health informa tion online - Detail Indication:Anxiety Start:18-Apr-2019 Instruction Type:Patient Education Patient Instructions Indication:Anxiety Start:18-Apr-2019 Instruction Type:Provider Instructions for Treatment How to access health informa tion online Indication:BMI 35.0-35.9,adult Start:12-Apr-2019 Instruction Type:Patient Education How to access health informa tion online - Detail Indication:BMI 35.0-35.9,adult Start:12-Apr-2019 Instruction Type:Patient Education Patient Instructions Indication:BMI 35.0-35.9,adult Start:12-Apr-2019 Instruction Type:Provider Instructions for Treatment How to access health informa tion online Indication:BMI 36.0-36.9,adult Start:13-Oct-2018 Instruction Type:Patient Education How to access health informa tion online - Detail Indication:BMI 36.0-36.9,adult Start:13-Oct-2018 Instruction Type:Patient Education Patient Instructions Indication:BMI 36.0-36.9,adult Start:13-Oct-2018 Instruction Type:Provider Instructions for Treatment How to access health informa tion online Indication:Current non-smoker Start:14-Jul-2018 Instruction Type:Patient Education How to access health informa tion online - Detail Indication:Current non-smoker Start:14-Jul-2018 Instruction Type:Patient Education Patient Instructions Indication:Current non-smoker Start:14-Jul-2018 Instruction Type:Provider Instructions for Treatment How to access health informa tion online Indication:Current non-smoker Start:22-Jun-2018 Instruction Type:Patient Education How to access health informa tion online - Detail Indication:Current non-smoker Start:22-Jun-2018 Instruction Type:Patient Education Patient Instructions Indication:Sinusitis, bacterial Start:22-Jun-2018 Instruction Type:Provider Instructions for Treatment How to access health informa tion online Indication:Current non-smoker Start:16-Jun-2018 Instruction Type:Patient Education How to access health informa tion online - Detail Indication:Current non-smoker Start:16-Jun-2018 Instruction Type:Patient Education Patient Instructions Indication:Current non-smoker Start:16-Jun-2018 Instruction Type:Provider Instructions for Treatment Patient Instructions Indication:BMI 38.0-38.9,adult Start:23-Jan-2018 Instruction Type:Provider Instructions for Treatment How to access health informa tion online Indication:BMI 38.0-38.9,adult Start:23-Jan-2018 Instruction Type:Patient Education How to access health informa tion online - Detail Indication:BMI 38.0-38.9,adult Start:23-Jan-2018 Instruction Type:Patient Education How to access health informa tion online Indication:Current non-smoker Start:21-Nov-2017 Instruction Type:Patient Education How to access health informa tion online - Detail Indication:Current non-smoker Start:21-Nov-2017 Instruction Type:Patient Education Patient Instructions Indication:Current non-smoker Start:21-Nov-2017 Instruction Type:Provider Instructions for Treatment How to access health informa tion online Indication:BMI 38.0-38.9,adult Start:18-Nov-2017 Instruction Type:Patient Education How to access health informa tion online - Detail Indication:BMI 38.0-38.9,adult Start:18-Nov-2017 Instruction Type:Patient Education Patient Instructions Indication:BMI 38.0-38.9,adult Start:18-Nov-2017 Instruction Type:Provider Instructions for Treatment How to access health informa tion online Indication:Current non-smoker Start:27-Oct-2017 Instruction Type:Patient Education How to access health informa tion online - Detail Indication:Current non-smoker Start:27-Oct-2017 Instruction Type:Patient Education Patient Instructions Indication:Current non-smoker Start:27-Oct-2017 Instruction Type:Provider Instructions for Treatment How to access health informa tion online Indication:Current non-smoker Start:20-Jul-2017 Instruction Type:Patient Education How to access health informa tion online - Detail Indication:Current non-smoker Start:20-Jul-2017 Instruction Type:Patient Education Patient Instructions Indication:Current non-smoker Start:20-Jul-2017 Instruction Type:Provider Instructions for Treatment How to access health informa tion online Indication:Current non-smoker Start:17-Jun-2017 Instruction Type:Patient Education How to access health informa tion online - Detail Indication:Current non-smoker Start:17-Jun-2017 Instruction Type:Patient Education Patient Instructions Indication:Current non-smoker Start:17-Jun-2017 Instruction Type:Provider Instructions for Treatment How to access health informa tion online Indication:BMI 37.0-37.9, adult Start:19-Oct-2016 Instruction Type:Patient Education How to access health informa tion online - Detail Indication:Current non-smoker Start:19-Oct-2016 Instruction Type:Patient Education Patient Instructions Indication:Current non-smoker Start:19-Oct-2016 Instruction Type:Provider Instructions for Treatment How to access health informa tion online Indication:Current non-smoker Start:01-Oct-2016 Instruction Type:Patient Education Patient Instructions Indication:Current non-smoker Start:01-Oct-2016 Instruction Type:Provider Instructions for Treatment How to access health informa tion online Indication:BMI 39.0-39.9,adult Start:19-Apr-2016 Instruction Type:Patient Education How to access health informa tion online - Detail Indication:BMI 39.0-39.9,adult Start:19-Apr-2016 Instruction Type:Patient Education Patient Instructions Indication:BMI 39.0-39.9,adult Start:19-Apr-2016 Instruction Type:Provider Instructions for Treatment How to access health informa tion online Indication:BMI 38.0-38.9,adult Start:20-Feb-2016 Instruction Type:Patient Education How to access health informa tion online - Detail Indication:BMI 38.0-38.9,adult Start:20-Feb-2016 Instruction Type:Patient Education Patient Instructions Indication:BMI 38.0-38.9,adult Start:20-Feb-2016 Instruction Type:Provider Instructions for Treatment How to access health informa tion online Indication:Current non-smoker Start:16-Feb-2016 Instruction Type:Patient Education How to access health informa tion online - Detail Indication:Current non-smoker Start:16-Feb-2016 Instruction Type:Patient Education Patient Instructions Indication:Current non-smoker Start:16-Feb-2016 Instruction Type:Provider Instructions for Treatment How to access [employer] online Indication:Impaired fasting glucose Start:22-Dec-2015 Instruction Type:Patient Education How to access health informa tion online - Detail Indication:Impaired fasting glucose Start:22-Dec-2015 Instruction Type:Patient Education Patient Instructions Indication:Impaired fasting glucose Start:22-Dec-2015 Instruction Type:Provider Instructions for Treatment Patient Instructions Indication:Stress reaction Start:04-Aug-2015 Instruction Type:Provider Instructions for Treatment Patient Instructions Indication:Impaired fasting glucose Start:03-Mar-2015 Instruction Type:Provider Instructions for Treatment How to access [employer] online Indication:Need for prophylactic vaccination and inoculation against influenza Start:27-Jan-2015 Instruction Type:Patient Education How to access health informa tion online - Detail Indication:Need for prophylactic vaccination and inoculation against influenza Start:27-Jan-2015 Instruction Type:Patient Education Patient Instructions Indication:Need for prophylactic vaccination and inoculation against influenza Start:27-Jan-2015 Instruction Type:Provider Instructions for Treatment Patient Instructions Indication:Obesity, unspecified Start:01-Nov-2014 Instruction Type:Provider Instructions for Treatment Patient Instructions Indication:Obesity, unspecified Start:22-Apr-2014 Instruction Type:Provider Instructions for Treatment Patient Instructions Indication:Near syncope Start:18-Oct-2013 Instruction Type:Provider Instructions for Treatment Patient Instructions Indication:Depressive disorder Start:25-Sep-2013 Instruction Type:Provider Instructions for Treatment instructions Indication:Depressive disorder Start:15-Mar-2013 Instruction Type:Provider Instructions for Treatment Patient Instructions Indication:Depressive disorder Start:23-Jan-2013 Instruction Type:Provider Instructions for Treatment Patient Instructions Indication:Cyst, kidney, acquired Start:17-Feb-2012 Instruction Type:Provider Instructions for Treatment Patient Instructions Indication:Depressive disorder Start:27-Jan-2012 Instruction Type:Provider Instructions for Treatment Name Dates Details How to access [facility] [employer] Indication:Non-smoker Start:08-Feb-2020 Instruction Type:Patient Education How to access health informa [employer] online - Detail Indication:Non-smoker Start:08-Feb-2020 Instruction Type:Patient Education Patient Instructions Indication:Non-smoker Start:08-Feb-2020 Instruction Type:Provider Instructions for Treatment How to access health informa tion online Indication:Non-smoker Start:26-Nov-2019 Instruction Type:Patient Education How to access health informa tion online - Detail Indication:Non-smoker Start:26-Nov-2019 Instruction Type:Patient Education Patient Instructions Indication:Non-smoker Start:26-Nov-2019 Instruction Type:Provider Instructions for Treatment How to access health informa tion online Indication:BMI 35.0-35.9,adult Start:04-Jul-2019 Instruction Type:Patient Education How to access health informa tion online - Detail Indication:BMI 35.0-35.9,adult Start:04-Jul-2019 Instruction Type:Patient Education Patient Instructions Indication:BMI 35.0-35.9,adult Start:04-Jul-2019 Instruction Type:Provider Instructions for Treatment How to access health informa tion online Indication:Anxiety Start:18-Apr-2019 Instruction Type:Patient Education How to access health informa tion online - Detail Indication:Anxiety Start:18-Apr-2019 Instruction Type:Patient Education Patient Instructions Indication:Anxiety Start:18-Apr-2019 Instruction Type:Provider Instructions for Treatment How to access health informa tion online Indication:BMI 35.0-35.9,adult Start:12-Apr-2019 Instruction Type:Patient Education How to access health informa tion online - Detail Indication:BMI 35.0-35.9,adult Start:12-Apr-2019 Instruction Type:Patient Education Patient Instructions Indication:BMI 35.0-35.9,adult Start:12-Apr-2019 Instruction Type:Provider Instructions for Treatment How to access health informa tion online Indication:BMI 36.0-36.9,adult Start:13-Oct-2018 Instruction Type:Patient Education How to access health informa tion online - Detail Indication:BMI 36.0-36.9,adult Start:13-Oct-2018 Instruction Type:Patient Education Patient Instructions Indication:BMI 36.0-36.9,adult Start:13-Oct-2018 Instruction Type:Provider Instructions for Treatment How to access health informa tion online Indication:Current non-smoker Start:14-Jul-2018 Instruction Type:Patient Education How to access health informa tion online - Detail Indication:Current non-smoker Start:14-Jul-2018 Instruction Type:Patient Education Patient Instructions Indication:Current non-smoker Start:14-Jul-2018 Instruction Type:Provider Instructions for Treatment How to access health informa tion online Indication:Current non-smoker Start:22-Jun-2018 Instruction Type:Patient Education How to access health informa tion online - Detail Indication:Current non-smoker Start:22-Jun-2018 Instruction Type:Patient Education Patient Instructions Indication:Sinusitis, bacterial Start:22-Jun-2018 Instruction Type:Provider Instructions for Treatment How to access health informa tion online Indication:Current non-smoker Start:16-Jun-2018 Instruction Type:Patient Education How to access health informa tion online - Detail Indication:Current non-smoker Start:16-Jun-2018 Instruction Type:Patient Education Patient Instructions Indication:Current non-smoker Start:16-Jun-2018 Instruction Type:Provider Instructions for Treatment Patient Instructions Indication:BMI 38.0-38.9,adult Start:23-Jan-2018 Instruction Type:Provider Instructions for Treatment How to access health informa tion online Indication:BMI 38.0-38.9,adult Start:23-Jan-2018 Instruction Type:Patient Education How to access health informa tion online - Detail Indication:BMI 38.0-38.9,adult Start:23-Jan-2018 Instruction Type:Patient Education How to access health informa tion online Indication:Current non-smoker Start:21-Nov-2017 Instruction Type:Patient Education How to access health informa tion online - Detail Indication:Current non-smoker Start:21-Nov-2017 Instruction Type:Patient Education Patient Instructions Indication:Current non-smoker Start:21-Nov-2017 Instruction Type:Provider Instructions for Treatment How to access health informa tion online Indication:BMI 38.0-38.9,adult Start:18-Nov-2017 Instruction Type:Patient Education How to access health informa tion online - Detail Indication:BMI 38.0-38.9,adult Start:18-Nov-2017 Instruction Type:Patient Education Patient Instructions Indication:BMI 38.0-38.9,adult Start:18-Nov-2017 Instruction Type:Provider Instructions for Treatment How to access health informa tion online Indication:Current non-smoker Start:27-Oct-2017 Instruction Type:Patient Education How to access health informa tion online - Detail Indication:Current non-smoker Start:27-Oct-2017 Instruction Type:Patient Education Patient Instructions Indication:Current non-smoker Start:27-Oct-2017 Instruction Type:Provider Instructions for Treatment How to access health informa tion online Indication:Current non-smoker Start:20-Jul-2017 Instruction Type:Patient Education How to access health informa tion online - Detail Indication:Current non-smoker Start:20-Jul-2017 Instruction Type:Patient Education Patient Instructions Indication:Current non-smoker Start:20-Jul-2017 Instruction Type:Provider Instructions for Treatment How to access health informa tion online Indication:Current non-smoker Start:17-Jun-2017 Instruction Type:Patient Education How to access health informa tion online - Detail Indication:Current non-smoker Start:17-Jun-2017 Instruction Type:Patient Education Patient Instructions Indication:Current non-smoker Start:17-Jun-2017 Instruction Type:Provider Instructions for Treatment How to access health informa tion online Indication:BMI 37.0-37.9, adult Start:19-Oct-2016 Instruction Type:Patient Education How to access health informa tion online - Detail Indication:Current non-smoker Start:19-Oct-2016 Instruction Type:Patient Education Patient Instructions Indication:Current non-smoker Start:19-Oct-2016 Instruction Type:Provider Instructions for Treatment How to access health informa tion online Indication:Current non-smoker Start:01-Oct-2016 Instruction Type:Patient Education Patient Instructions Indication:Current non-smoker Start:01-Oct-2016 Instruction Type:Provider Instructions for Treatment How to access health informa tion online Indication:BMI 39.0-39.9,adult Start:19-Apr-2016 Instruction Type:Patient Education How to access health informa tion online - Detail Indication:BMI 39.0-39.9,adult Start:19-Apr-2016 Instruction Type:Patient Education Patient Instructions Indication:BMI 39.0-39.9,adult Start:19-Apr-2016 Instruction Type:Provider Instructions for Treatment How to access health informa tion online Indication:BMI 38.0-38.9,adult Start:20-Feb-2016 Instruction Type:Patient Education How to access health informa tion online - Detail Indication:BMI 38.0-38.9,adult Start:20-Feb-2016 Instruction Type:Patient Education Patient Instructions Indication:BMI 38.0-38.9,adult Start:20-Feb-2016 Instruction Type:Provider Instructions for Treatment How to access health informa tion online Indication:Current non-smoker Start:16-Feb-2016 Instruction Type:Patient Education How to access health informa tion online - Detail Indication:Current non-smoker Start:16-Feb-2016 Instruction Type:Patient Education Patient Instructions Indication:Current non-smoker Start:16-Feb-2016 Instruction Type:Provider Instructions for Treatment How to access health informa tion online Indication:Impaired fasting glucose Start:22-Dec-2015 Instruction Type:Patient Education How to access health informa tion online - Detail Indication:Impaired fasting glucose Start:22-Dec-2015 Instruction Type:Patient Education Patient Instructions Indication:Impaired fasting glucose Start:22-Dec-2015 Instruction Type:Provider Instructions for Treatment Patient Instructions Indication:Stress reaction Start:04-Aug-2015 Instruction Type:Provider Instructions for Treatment Patient Instructions Indication:Impaired fasting glucose Start:03-Mar-2015 Instruction Type:Provider Instructions for Treatment How to access health informa tion online Indication:Need for prophylactic vaccination and inoculation against influenza Start:27-Jan-2015 Instruction Type:Patient Education How to access health informa tion online - Detail Indication:Need for prophylactic vaccination and inoculation against influenza Start:27-Jan-2015 Instruction Type:Patient Education Patient Instructions Indication:Need for prophylactic vaccination and inoculation against influenza Start:27-Jan-2015 Instruction Type:Provider Instructions for Treatment Patient Instructions Indication:Obesity, unspecified Start:01-Nov-2014 Instruction Type:Provider Instructions for Treatment Patient Instructions Indication:Obesity, unspecified Start:22-Apr-2014 Instruction Type:Provider Instructions for Treatment Patient Instructions Indication:Near syncope Start:18-Oct-2013 Instruction Type:Provider Instructions for Treatment Patient Instructions Indication:Depressive disorder Start:25-Sep-2013 Instruction Type:Provider Instructions for Treatment instructions Indication:Depressive disorder Start:15-Mar-2013 Instruction Type:Provider Instructions for Treatment Patient Instructions Indication:Depressive disorder Start:23-Jan-2013 Instruction Type:Provider Instructions for Treatment Patient Instructions Indication:Cyst, kidney, acquired Start:17-Feb-2012 Instruction Type:Provider Instructions for Treatment Patient Instructions Indication:Depressive disorder Start:27-Jan-2012 Instruction Type:Provider Instructions for Treatment Name Dates Details How to access health informa tion online Indication:Non-smoker Start:08-Feb-2020 Instruction Type:Patient Education How to access health informa tion online - Detail Indication:Non-smoker Start:08-Feb-2020 Instruction Type:Patient Education Patient Instructions Indication:Non-smoker Start:08-Feb-2020 Instruction Type:Provider Instructions for Treatment How to access health informa tion online Indication:Non-smoker Start:26-Nov-2019 Instruction Type:Patient Education How to access health informa tion online - Detail Indication:Non-smoker Start:26-Nov-2019 Instruction Type:Patient Education Patient Instructions Indication:Non-smoker Start:26-Nov-2019 Instruction Type:Provider Instructions for Treatment How to access health informa tion online Indication:BMI 35.0-35.9,adult Start:04-Jul-2019 Instruction Type:Patient Education How to access health informa tion online - Detail Indication:BMI 35.0-35.9,adult Start:04-Jul-2019 Instruction Type:Patient Education Patient Instructions Indication:BMI 35.0-35.9,adult Start:04-Jul-2019 Instruction Type:Provider Instructions for Treatment How to access health informa tion online Indication:Anxiety Start:18-Apr-2019 Instruction Type:Patient Education How to access health informa tion online - Detail Indication:Anxiety Start:18-Apr-2019 Instruction Type:Patient Education Patient Instructions Indication:Anxiety Start:18-Apr-2019 Instruction Type:Provider Instructions for Treatment How to access health informa tion online Indication:BMI 35.0-35.9,adult Start:12-Apr-2019 Instruction Type:Patient Education How to access health informa tion online - Detail Indication:BMI 35.0-35.9,adult Start:12-Apr-2019 Instruction Type:Patient Education Patient Instructions Indication:BMI 35.0-35.9,adult Start:12-Apr-2019 Instruction Type:Provider Instructions for Treatment How to access health informa tion online Indication:BMI 36.0-36.9,adult Start:13-Oct-2018 Instruction Type:Patient Education How to access health informa tion online - Detail Indication:BMI 36.0-36.9,adult Start:13-Oct-2018 Instruction Type:Patient Education Patient Instructions Indication:BMI 36.0-36.9,adult Start:13-Oct-2018 Instruction Type:Provider Instructions for Treatment How to access health informa tion online Indication:Current non-smoker Start:14-Jul-2018 Instruction Type:Patient Education How to access health informa tion online - Detail Indication:Current non-smoker Start:14-Jul-2018 Instruction Type:Patient Education Patient Instructions Indication:Current non-smoker Start:14-Jul-2018 Instruction Type:Provider Instructions for Treatment How to access health informa tion online Indication:Current non-smoker Start:22-Jun-2018 Instruction Type:Patient Education How to access health informa tion online - Detail Indication:Current non-smoker Start:22-Jun-2018 Instruction Type:Patient Education Patient Instructions Indication:Sinusitis, bacterial Start:22-Jun-2018 Instruction Type:Provider Instructions for Treatment How to access health informa tion online Indication:Current non-smoker Start:16-Jun-2018 Instruction Type:Patient Education How to access health informa tion online - Detail Indication:Current non-smoker Start:16-Jun-2018 Instruction Type:Patient Education Patient Instructions Indication:Current non-smoker Start:16-Jun-2018 Instruction Type:Provider Instructions for Treatment Patient Instructions Indication:BMI 38.0-38.9,adult Start:23-Jan-2018 Instruction Type:Provider Instructions for Treatment How to access health informa tion online Indication:BMI 38.0-38.9,adult Start:23-Jan-2018 Instruction Type:Patient Education How to access health informa tion online - Detail Indication:BMI 38.0-38.9,adult Start:23-Jan-2018 Instruction Type:Patient Education How to access health informa tion online Indication:Current non-smoker Start:21-Nov-2017 Instruction Type:Patient Education How to access health informa tion online - Detail Indication:Current non-smoker Start:21-Nov-2017 Instruction Type:Patient Education Patient Instructions Indication:Current non-smoker Start:21-Nov-2017 Instruction Type:Provider Instructions for Treatment How to access health informa tion online Indication:BMI 38.0-38.9,adult Start:18-Nov-2017 Instruction Type:Patient Education How to access health informa tion online - Detail Indication:BMI 38.0-38.9,adult Start:18-Nov-2017 Instruction Type:Patient Education Patient Instructions Indication:BMI 38.0-38.9,adult Start:18-Nov-2017 Instruction Type:Provider Instructions for Treatment How to access health informa tion online Indication:Current non-smoker Start:27-Oct-2017 Instruction Type:Patient Education How to access health informa tion online - Detail Indication:Current non-smoker Start:27-Oct-2017 Instruction Type:Patient Education Patient Instructions Indication:Current non-smoker Start:27-Oct-2017 Instruction Type:Provider Instructions for Treatment How to access health informa tion online Indication:Current non-smoker Start:20-Jul-2017 Instruction Type:Patient Education How to access health informa tion online - Detail Indication:Current non-smoker Start:20-Jul-2017 Instruction Type:Patient Education Patient Instructions Indication:Current non-smoker Start:20-Jul-2017 Instruction Type:Provider Instructions for Treatment How to access health informa tion online Indication:Current non-smoker Start:17-Jun-2017 Instruction Type:Patient Education How to access health informa tion online - Detail Indication:Current non-smoker Start:17-Jun-2017 Instruction Type:Patient Education Patient Instructions Indication:Current non-smoker Start:17-Jun-2017 Instruction Type:Provider Instructions for Treatment How to access health informa tion online Indication:BMI 37.0-37.9, adult Start:19-Oct-2016 Instruction Type:Patient Education How to access health informa tion online - Detail Indication:Current non-smoker Start:19-Oct-2016 Instruction Type:Patient Education Patient Instructions Indication:Current non-smoker Start:19-Oct-2016 Instruction Type:Provider Instructions for Treatment How to access health informa tion online Indication:Current non-smoker Start:01-Oct-2016 Instruction Type:Patient Education Patient Instructions Indication:Current non-smoker Start:01-Oct-2016 Instruction Type:Provider Instructions for Treatment How to access health informa tion online Indication:BMI 39.0-39.9,adult Start:19-Apr-2016 Instruction Type:Patient Education How to access health informa tion online - Detail Indication:BMI 39.0-39.9,adult Start:19-Apr-2016 Instruction Type:Patient Education Patient Instructions Indication:BMI 39.0-39.9,adult Start:19-Apr-2016 Instruction Type:Provider Instructions for Treatment How to access health informa tion online Indication:BMI 38.0-38.9,adult Start:20-Feb-2016 Instruction Type:Patient Education How to access health informa tion online - Detail Indication:BMI 38.0-38.9,adult Start:20-Feb-2016 Instruction Type:Patient Education Patient Instructions Indication:BMI 38.0-38.9,adult Start:20-Feb-2016 Instruction Type:Provider Instructions for Treatment How to access health [employer] online Indication:Current non-smoker Start:16-Feb-2016 Instruction Type:Patient Education How to access health informa tion online - Detail Indication:Current non-smoker Start:16-Feb-2016 Instruction Type:Patient Education Patient Instructions Indication:Current non-smoker Start:16-Feb-2016 Instruction Type:Provider Instructions for Treatment How to access health informa tion online Indication:Impaired fasting glucose Start:22-Dec-2015 Instruction Type:Patient Education How to access health informa tion online - Detail Indication:Impaired fasting glucose Start:22-Dec-2015 Instruction Type:Patient Education Patient Instructions Indication:Impaired fasting glucose Start:22-Dec-2015 Instruction Type:Provider Instructions for Treatment Patient Instructions Indication:Stress reaction Start:04-Aug-2015 Instruction Type:Provider Instructions for Treatment Patient Instructions Indication:Impaired fasting glucose Start:03-Mar-2015 Instruction Type:Provider Instructions for Treatment How to access health informa tion online Indication:Need for prophylactic vaccination and inoculation against influenza Start:27-Jan-2015 Instruction Type:Patient Education How to access health informa tion online - Detail Indication:Need for prophylactic vaccination and inoculation against influenza Start:27-Jan-2015 Instruction Type:Patient Education Patient Instructions Indication:Need for prophylactic vaccination and inoculation against influenza Start:27-Jan-2015 Instruction Type:Provider Instructions for Treatment Patient Instructions Indication:Obesity, unspecified Start:01-Nov-2014 Instruction Type:Provider Instructions for Treatment Patient Instructions Indication:Obesity, unspecified Start:22-Apr-2014 Instruction Type:Provider Instructions for Treatment Patient Instructions Indication:Near syncope Start:18-Oct-2013 Instruction Type:Provider Instructions for Treatment Patient Instructions Indication:Depressive disorder Start:25-Sep-2013 Instruction Type:Provider Instructions for Treatment instructions Indication:Depressive disorder Start:15-Mar-2013 Instruction Type:Provider Instructions for Treatment Patient Instructions Indication:Depressive disorder Start:23-Jan-2013 Instruction Type:Provider Instructions for Treatment Patient Instructions Indication:Cyst, kidney, acquired Start:17-Feb-2012 Instruction Type:Provider Instructions for Treatment Patient Instructions Indication:Depressive disorder Start:27-Jan-2012 Instruction Type:Provider Instructions for Treatment Name Dates Details How to access health informa tion online Indication:Non-smoker Start:08-Feb-2020 Instruction Type:Patient Education How to access health informa tion online - Detail Indication:Non-smoker Start:08-Feb-2020 Instruction Type:Patient Education Patient Instructions Indication:Non-smoker Start:08-Feb-2020 Instruction Type:Provider Instructions for Treatment How to access health informa tion online Indication:Non-smoker Start:26-Nov-2019 Instruction Type:Patient Education How to access health informa tion online - Detail Indication:Non-smoker Start:26-Nov-2019 Instruction Type:Patient Education Patient Instructions Indication:Non-smoker Start:26-Nov-2019 Instruction Type:Provider Instructions for Treatment How to access health informa tion online Indication:BMI 35.0-35.9,adult Start:04-Jul-2019 Instruction Type:Patient Education How to access health informa tion online - Detail Indication:BMI 35.0-35.9,adult Start:04-Jul-2019 Instruction Type:Patient Education Patient Instructions Indication:BMI 35.0-35.9,adult Start:04-Jul-2019 Instruction Type:Provider Instructions for Treatment How to access health informa tion online Indication:Anxiety Start:18-Apr-2019 Instruction Type:Patient Education How to access health informa tion online - Detail Indication:Anxiety Start:18-Apr-2019 Instruction Type:Patient Education Patient Instructions Indication:Anxiety Start:18-Apr-2019 Instruction Type:Provider Instructions for Treatment How to access health informa tion online Indication:BMI 35.0-35.9,adult Start:12-Apr-2019 Instruction Type:Patient Education How to access health informa tion online - Detail Indication:BMI 35.0-35.9,adult Start:12-Apr-2019 Instruction Type:Patient Education Patient Instructions Indication:BMI 35.0-35.9,adult Start:12-Apr-2019 Instruction Type:Provider Instructions for Treatment How to access health informa tion online Indication:BMI 36.0-36.9,adult Start:13-Oct-2018 Instruction Type:Patient Education How to access health informa tion online - Detail Indication:BMI 36.0-36.9,adult Start:13-Oct-2018 Instruction Type:Patient Education Patient Instructions Indication:BMI 36.0-36.9,adult Start:13-Oct-2018 Instruction Type:Provider Instructions for Treatment How to access health informa tion online Indication:Current non-smoker Start:14-Jul-2018 Instruction Type:Patient Education How to access health informa tion online - Detail Indication:Current non-smoker Start:14-Jul-2018 Instruction Type:Patient Education Patient Instructions Indication:Current non-smoker Start:14-Jul-2018 Instruction Type:Provider Instructions for Treatment How to access health informa tion online Indication:Current non-smoker Start:22-Jun-2018 Instruction Type:Patient Education How to access health informa tion online - Detail Indication:Current non-smoker Start:22-Jun-2018 Instruction Type:Patient Education Patient Instructions Indication:Sinusitis, bacterial Start:22-Jun-2018 Instruction Type:Provider Instructions for Treatment How to access health informa tion online Indication:Current non-smoker Start:16-Jun-2018 Instruction Type:Patient Education How to access health informa tion online - Detail Indication:Current non-smoker Start:16-Jun-2018 Instruction Type:Patient Education Patient Instructions Indication:Current non-smoker Start:16-Jun-2018 Instruction Type:Provider Instructions for Treatment Patient Instructions Indication:BMI 38.0-38.9,adult Start:23-Jan-2018 Instruction Type:Provider Instructions for Treatment How to access health informa tion online Indication:BMI 38.0-38.9,adult Start:23-Jan-2018 Instruction Type:Patient Education How to access health informa tion online - Detail Indication:BMI 38.0-38.9,adult Start:23-Jan-2018 Instruction Type:Patient Education How to access health informa tion online Indication:Current non-smoker Start:21-Nov-2017 Instruction Type:Patient Education How to access health informa tion online - Detail Indication:Current non-smoker Start:21-Nov-2017 Instruction Type:Patient Education Patient Instructions Indication:Current non-smoker Start:21-Nov-2017 Instruction Type:Provider Instructions for Treatment How to access health informa tion online Indication:BMI 38.0-38.9,adult Start:18-Nov-2017 Instruction Type:Patient Education How to access health informa tion online - Detail Indication:BMI 38.0-38.9,adult Start:18-Nov-2017 Instruction Type:Patient Education Patient Instructions Indication:BMI 38.0-38.9,adult Start:18-Nov-2017 Instruction Type:Provider Instructions for Treatment How to access health informa tion online Indication:Current non-smoker Start:27-Oct-2017 Instruction Type:Patient Education How to access health informa tion online - Detail Indication:Current non-smoker Start:27-Oct-2017 Instruction Type:Patient Education Patient Instructions Indication:Current non-smoker Start:27-Oct-2017 Instruction Type:Provider Instructions for Treatment How to access health informa tion online Indication:Current non-smoker Start:20-Jul-2017 Instruction Type:Patient Education How to access health informa tion online - Detail Indication:Current non-smoker Start:20-Jul-2017 Instruction Type:Patient Education Patient Instructions Indication:Current non-smoker Start:20-Jul-2017 Instruction Type:Provider Instructions for Treatment How to access health informa tion online Indication:Current non-smoker Start:17-Jun-2017 Instruction Type:Patient Education How to access health informa tion online - Detail Indication:Current non-smoker Start:17-Jun-2017 Instruction Type:Patient Education Patient Instructions Indication:Current non-smoker Start:17-Jun-2017 Instruction Type:Provider Instructions for Treatment How to access health informa tion online Indication:BMI 37.0-37.9, adult Start:19-Oct-2016 Instruction Type:Patient Education How to access health informa tion online - Detail Indication:Current non-smoker Start:19-Oct-2016 Instruction Type:Patient Education Patient Instructions Indication:Current non-smoker Start:19-Oct-2016 Instruction Type:Provider Instructions for Treatment How to access health informa tion online Indication:Current non-smoker Start:01-Oct-2016 Instruction Type:Patient Education Patient Instructions Indication:Current non-smoker Start:01-Oct-2016 Instruction Type:Provider Instructions for Treatment How to access health informa tion online Indication:BMI 39.0-39.9,adult Start:19-Apr-2016 Instruction Type:Patient Education How to access health informa tion online - Detail Indication:BMI 39.0-39.9,adult Start:19-Apr-2016 Instruction Type:Patient Education Patient Instructions Indication:BMI 39.0-39.9,adult Start:19-Apr-2016 Instruction Type:Provider Instructions for Treatment How to access health informa tion online Indication:BMI 38.0-38.9,adult Start:20-Feb-2016 Instruction Type:Patient Education How to access health informa tion online - Detail Indication:BMI 38.0-38.9,adult Start:20-Feb-2016 Instruction Type:Patient Education Patient Instructions Indication:BMI 38.0-38.9,adult Start:20-Feb-2016 Instruction Type:Provider Instructions for Treatment How to access health informa tion online Indication:Current non-smoker Start:16-Feb-2016 Instruction Type:Patient Education How to access health informa tion online - Detail Indication:Current non-smoker Start:16-Feb-2016 Instruction Type:Patient Education Patient Instructions Indication:Current non-smoker Start:16-Feb-2016 Instruction Type:Provider Instructions for Treatment How to access health informa tion online Indication:Impaired fasting glucose Start:22-Dec-2015 Instruction Type:Patient Education How to access health informa tion online - Detail Indication:Impaired fasting glucose Start:22-Dec-2015 Instruction Type:Patient Education Patient Instructions Indication:Impaired fasting glucose Start:22-Dec-2015 Instruction Type:Provider Instructions for Treatment Patient Instructions Indication:Stress reaction Start:04-Aug-2015 Instruction Type:Provider Instructions for Treatment Patient Instructions Indication:Impaired fasting glucose Start:03-Mar-2015 Instruction Type:Provider Instructions for Treatment How to access health informa tion online Indication:Need for prophylactic vaccination and inoculation against influenza Start:27-Jan-2015 Instruction Type:Patient Education How to access health informa tion online - Detail Indication:Need for prophylactic vaccination and inoculation against influenza Start:27-Jan-2015 Instruction Type:Patient Education Patient Instructions Indication:Need for prophylactic vaccination and inoculation against influenza Start:27-Jan-2015 Instruction Type:Provider Instructions for Treatment Patient Instructions Indication:Obesity, unspecified Start:01-Nov-2014 Instruction Type:Provider Instructions for Treatment Patient Instructions Indication:Obesity, unspecified Start:22-Apr-2014 Instruction Type:Provider Instructions for Treatment Patient Instructions Indication:Near syncope Start:18-Oct-2013 Instruction Type:Provider Instructions for Treatment Patient Instructions Indication:Depressive disorder Start:25-Sep-2013 Instruction Type:Provider Instructions for Treatment instructions Indication:Depressive disorder Start:15-Mar-2013 Instruction Type:Provider Instructions for Treatment Patient Instructions Indication:Depressive disorder Start:23-Jan-2013 Instruction Type:Provider Instructions for Treatment Patient Instructions Indication:Cyst, kidney, acquired Start:17-Feb-2012 Instruction Type:Provider Instructions for Treatment Patient Instructions Indication:Depressive disorder Start:27-Jan-2012 Instruction Type:Provider Instructions for Treatment Name Dates Details How to access health informa tion online Indication:Non-smoker Start:08-Feb-2020 Instruction Type:Patient Education How to access health informa tion online - Detail Indication:Non-smoker Start:08-Feb-2020 Instruction Type:Patient Education Patient Instructions Indication:Non-smoker Start:08-Feb-2020 Instruction Type:Provider Instructions for Treatment How to access health informa tion online Indication:Non-smoker Start:26-Nov-2019 Instruction Type:Patient Education How to access health informa tion online - Detail Indication:Non-smoker Start:26-Nov-2019 Instruction Type:Patient Education Patient Instructions Indication:Non-smoker Start:26-Nov-2019 Instruction Type:Provider Instructions for Treatment How to access health informa tion online Indication:BMI 35.0-35.9,adult Start:04-Jul-2019 Instruction Type:Patient Education How to access health informa tion online - Detail Indication:BMI 35.0-35.9,adult Start:04-Jul-2019 Instruction Type:Patient Education Patient Instructions Indication:BMI 35.0-35.9,adult Start:04-Jul-2019 Instruction Type:Provider Instructions for Treatment How to access health informa tion online Indication:Anxiety Start:18-Apr-2019 Instruction Type:Patient Education How to access health informa tion online - Detail Indication:Anxiety Start:18-Apr-2019 Instruction Type:Patient Education Patient Instructions Indication:Anxiety Start:18-Apr-2019 Instruction Type:Provider Instructions for Treatment How to access health informa tion online Indication:BMI 35.0-35.9,adult Start:12-Apr-2019 Instruction Type:Patient Education How to access health informa tion online - Detail Indication:BMI 35.0-35.9,adult Start:12-Apr-2019 Instruction Type:Patient Education Patient Instructions Indication:BMI 35.0-35.9,adult Start:12-Apr-2019 Instruction Type:Provider Instructions for Treatment How to access health informa tion online Indication:BMI 36.0-36.9,adult Start:13-Oct-2018 Instruction Type:Patient Education How to access health informa tion online - Detail Indication:BMI 36.0-36.9,adult Start:13-Oct-2018 Instruction Type:Patient Education Patient Instructions Indication:BMI 36.0-36.9,adult Start:13-Oct-2018 Instruction Type:Provider Instructions for Treatment How to access health informa tion online Indication:Current non-smoker Start:14-Jul-2018 Instruction Type:Patient Education How to access health informa tion online - Detail Indication:Current non-smoker Start:14-Jul-2018 Instruction Type:Patient Education Patient Instructions Indication:Current non-smoker Start:14-Jul-2018 Instruction Type:Provider Instructions for Treatment How to access health informa tion online Indication:Current non-smoker Start:22-Jun-2018 Instruction Type:Patient Education How to access health informa tion online - Detail Indication:Current non-smoker Start:22-Jun-2018 Instruction Type:Patient Education Patient Instructions Indication:Sinusitis, bacterial Start:22-Jun-2018 Instruction Type:Provider Instructions for Treatment How to access health informa tion online Indication:Current non-smoker Start:16-Jun-2018 Instruction Type:Patient Education How to access health informa tion online - Detail Indication:Current non-smoker Start:16-Jun-2018 Instruction Type:Patient Education Patient Instructions Indication:Current non-smoker Start:16-Jun-2018 Instruction Type:Provider Instructions for Treatment Patient Instructions Indication:BMI 38.0-38.9,adult Start:23-Jan-2018 Instruction Type:Provider Instructions for Treatment How to access health informa tion online Indication:BMI 38.0-38.9,adult Start:23-Jan-2018 Instruction Type:Patient Education How to access health informa tion online - Detail Indication:BMI 38.0-38.9,adult Start:23-Jan-2018 Instruction Type:Patient Education How to access health informa tion online Indication:Current non-smoker Start:21-Nov-2017 Instruction Type:Patient Education How to access health informa tion online - Detail Indication:Current non-smoker Start:21-Nov-2017 Instruction Type:Patient Education Patient Instructions Indication:Current non-smoker Start:21-Nov-2017 Instruction Type:Provider Instructions for Treatment How to access health informa tion online Indication:BMI 38.0-38.9,adult Start:18-Nov-2017 Instruction Type:Patient Education How to access health informa tion online - Detail Indication:BMI 38.0-38.9,adult Start:18-Nov-2017 Instruction Type:Patient Education Patient Instructions Indication:BMI 38.0-38.9,adult Start:18-Nov-2017 Instruction Type:Provider Instructions for Treatment How to access health informa tion online Indication:Current non-smoker Start:27-Oct-2017 Instruction Type:Patient Education How to access health informa tion online - Detail Indication:Current non-smoker Start:27-Oct-2017 Instruction Type:Patient Education Patient Instructions Indication:Current non-smoker Start:27-Oct-2017 Instruction Type:Provider Instructions for Treatment How to access health informa tion online Indication:Current non-smoker Start:20-Jul-2017 Instruction Type:Patient Education How to access health informa tion online - Detail Indication:Current non-smoker Start:20-Jul-2017 Instruction Type:Patient Education Patient Instructions Indication:Current non-smoker Start:20-Jul-2017 Instruction Type:Provider Instructions for Treatment How to access health informa tion online Indication:Current non-smoker Start:17-Jun-2017 Instruction Type:Patient Education How to access health informa tion online - Detail Indication:Current non-smoker Start:17-Jun-2017 Instruction Type:Patient Education Patient Instructions Indication:Current non-smoker Start:17-Jun-2017 Instruction Type:Provider Instructions for Treatment How to access health informa tion online Indication:BMI 37.0-37.9, adult Start:19-Oct-2016 Instruction Type:Patient Education How to access health informa tion online - Detail Indication:Current non-smoker Start:19-Oct-2016 Instruction Type:Patient Education Patient Instructions Indication:Current non-smoker Start:19-Oct-2016 Instruction Type:Provider Instructions for Treatment How to access health informa tion online Indication:Current non-smoker Start:01-Oct-2016 Instruction Type:Patient Education Patient Instructions Indication:Current non-smoker Start:01-Oct-2016 Instruction Type:Provider Instructions for Treatment How to access health informa tion online Indication:BMI 39.0-39.9,adult Start:19-Apr-2016 Instruction Type:Patient Education How to access health informa tion online - Detail Indication:BMI 39.0-39.9,adult Start:19-Apr-2016 Instruction Type:Patient Education Patient Instructions Indication:BMI 39.0-39.9,adult Start:19-Apr-2016 Instruction Type:Provider Instructions for Treatment How to access health informa tion online Indication:BMI 38.0-38.9,adult Start:20-Feb-2016 Instruction Type:Patient Education How to access health informa tion online - Detail Indication:BMI 38.0-38.9,adult Start:20-Feb-2016 Instruction Type:Patient Education Patient Instructions Indication:BMI 38.0-38.9,adult Start:20-Feb-2016 Instruction Type:Provider Instructions for Treatment How to access health informa [employer] online Indication:Current non-smoker Start:16-Feb-2016 Instruction Type:Patient Education How to access health informa tion online - Detail Indication:Current non-smoker Start:16-Feb-2016 Instruction Type:Patient Education Patient Instructions Indication:Current non-smoker Start:16-Feb-2016 Instruction Type:Provider Instructions for Treatment How to access health informa tion online Indication:Impaired fasting glucose Start:22-Dec-2015 Instruction Type:Patient Education How to access health informa tion online - Detail Indication:Impaired fasting glucose Start:22-Dec-2015 Instruction Type:Patient Education Patient Instructions Indication:Impaired fasting glucose Start:22-Dec-2015 Instruction Type:Provider Instructions for Treatment Patient Instructions Indication:Stress reaction Start:04-Aug-2015 Instruction Type:Provider Instructions for Treatment Patient Instructions Indication:Impaired fasting glucose Start:03-Mar-2015 Instruction Type:Provider Instructions for Treatment How to access health informa tion online Indication:Need for prophylactic vaccination and inoculation against influenza Start:27-Jan-2015 Instruction Type:Patient Education How to access health informa tion online - Detail Indication:Need for prophylactic vaccination and inoculation against influenza Start:27-Jan-2015 Instruction Type:Patient Education Patient Instructions Indication:Need for prophylactic vaccination and inoculation against influenza Start:27-Jan-2015 Instruction Type:Provider Instructions for Treatment Patient Instructions Indication:Obesity, unspecified Start:01-Nov-2014 Instruction Type:Provider Instructions for Treatment Patient Instructions Indication:Obesity, unspecified Start:22-Apr-2014 Instruction Type:Provider Instructions for Treatment Patient Instructions Indication:Near syncope Start:18-Oct-2013 Instruction Type:Provider Instructions for Treatment Patient Instructions Indication:Depressive disorder Start:25-Sep-2013 Instruction Type:Provider Instructions for Treatment instructions Indication:Depressive disorder Start:15-Mar-2013 Instruction Type:Provider Instructions for Treatment Patient Instructions Indication:Depressive disorder Start:23-Jan-2013 Instruction Type:Provider Instructions for Treatment Patient Instructions Indication:Cyst, kidney, acquired Start:17-Feb-2012 Instruction Type:Provider Instructions for Treatment Patient Instructions Indication:Depressive disorder Start:27-Jan-2012 Instruction Type:Provider Instructions for Treatment Name Dates Details How to Access Health Informa tion Online using Patient Portal and [employer] Indication:Non-smoker Start:31-Mar-2020 Instruction Type:Patient Education Patient Instructions Indication:Non-smoker Start:31-Mar-2020 Instruction Type:Provider Instructions for Treatment How to access health informa tion online Indication:Non-smoker Start:08-Feb-2020 Instruction Type:Patient Education How to access health informa tion online - Detail Indication:Non-smoker Start:08-Feb-2020 Instruction Type:Patient Education Patient Instructions Indication:Non-smoker Start:08-Feb-2020 Instruction Type:Provider Instructions for Treatment How to access health informa tion online Indication:Non-smoker Start:26-Nov-2019 Instruction Type:Patient Education How to access health informa tion online - Detail Indication:Non-smoker Start:26-Nov-2019 Instruction Type:Patient Education Patient Instructions Indication:Non-smoker Start:26-Nov-2019 Instruction Type:Provider Instructions for Treatment How to access health informa tion online Indication:BMI 35.0-35.9,adult Start:04-Jul-2019 Instruction Type:Patient Education How to access health informa tion online - Detail Indication:BMI 35.0-35.9,adult Start:04-Jul-2019 Instruction Type:Patient Education Patient Instructions Indication:BMI 35.0-35.9,adult Start:04-Jul-2019 Instruction Type:Provider Instructions for Treatment How to access health informa tion online Indication:Anxiety Start:18-Apr-2019 Instruction Type:Patient Education How to access health informa tion online - Detail Indication:Anxiety Start:18-Apr-2019 Instruction Type:Patient Education Patient Instructions Indication:Anxiety Start:18-Apr-2019 Instruction Type:Provider Instructions for Treatment How to access health informa tion online Indication:BMI 35.0-35.9,adult Start:12-Apr-2019 Instruction Type:Patient Education How to access health informa tion online - Detail Indication:BMI 35.0-35.9,adult Start:12-Apr-2019 Instruction Type:Patient Education Patient Instructions Indication:BMI 35.0-35.9,adult Start:12-Apr-2019 Instruction Type:Provider Instructions for Treatment How to access health informa tion online Indication:BMI 36.0-36.9,adult Start:13-Oct-2018 Instruction Type:Patient Education How to access health informa tion online - Detail Indication:BMI 36.0-36.9,adult Start:13-Oct-2018 Instruction Type:Patient Education Patient Instructions Indication:BMI 36.0-36.9,adult Start:13-Oct-2018 Instruction Type:Provider Instructions for Treatment How to access health informa tion online Indication:Current non-smoker Start:14-Jul-2018 Instruction Type:Patient Education How to access health informa tion online - Detail Indication:Current non-smoker Start:14-Jul-2018 Instruction Type:Patient Education Patient Instructions Indication:Current non-smoker Start:14-Jul-2018 Instruction Type:Provider Instructions for Treatment How to access health informa tion online Indication:Current non-smoker Start:22-Jun-2018 Instruction Type:Patient Education How to access health informa tion online - Detail Indication:Current non-smoker Start:22-Jun-2018 Instruction Type:Patient Education Patient Instructions Indication:Sinusitis, bacterial Start:22-Jun-2018 Instruction Type:Provider Instructions for Treatment How to access health informa tion online Indication:Current non-smoker Start:16-Jun-2018 Instruction Type:Patient Education How to access health informa tion online - Detail Indication:Current non-smoker Start:16-Jun-2018 Instruction Type:Patient Education Patient Instructions Indication:Current non-smoker Start:16-Jun-2018 Instruction Type:Provider Instructions for Treatment Patient Instructions Indication:BMI 38.0-38.9,adult Start:23-Jan-2018 Instruction Type:Provider Instructions for Treatment How to access health informa tion online Indication:BMI 38.0-38.9,adult Start:23-Jan-2018 Instruction Type:Patient Education How to access health informa tion online - Detail Indication:BMI 38.0-38.9,adult Start:23-Jan-2018 Instruction Type:Patient Education How to access health informa tion online Indication:Current non-smoker Start:21-Nov-2017 Instruction Type:Patient Education How to access health informa tion online - Detail Indication:Current non-smoker Start:21-Nov-2017 Instruction Type:Patient Education Patient Instructions Indication:Current non-smoker Start:21-Nov-2017 Instruction Type:Provider Instructions for Treatment How to access health informa tion online Indication:BMI 38.0-38.9,adult Start:18-Nov-2017 Instruction Type:Patient Education How to access health informa tion online - Detail Indication:BMI 38.0-38.9,adult Start:18-Nov-2017 Instruction Type:Patient Education Patient Instructions Indication:BMI 38.0-38.9,adult Start:18-Nov-2017 Instruction Type:Provider Instructions for Treatment How to access health informa tion online Indication:Current non-smoker Start:27-Oct-2017 Instruction Type:Patient Education How to access health informa tion online - Detail Indication:Current non-smoker Start:27-Oct-2017 Instruction Type:Patient Education Patient Instructions Indication:Current non-smoker Start:27-Oct-2017 Instruction Type:Provider Instructions for Treatment How to access health informa tion online Indication:Current non-smoker Start:20-Jul-2017 Instruction Type:Patient Education How to access health informa tion online - Detail Indication:Current non-smoker Start:20-Jul-2017 Instruction Type:Patient Education Patient Instructions Indication:Current non-smoker Start:20-Jul-2017 Instruction Type:Provider Instructions for Treatment How to access health informa tion online Indication:Current non-smoker Start:17-Jun-2017 Instruction Type:Patient Education How to access health informa tion online - Detail Indication:Current non-smoker Start:17-Jun-2017 Instruction Type:Patient Education Patient Instructions Indication:Current non-smoker Start:17-Jun-2017 Instruction Type:Provider Instructions for Treatment How to access health informa tion online Indication:BMI 37.0-37.9, adult Start:19-Oct-2016 Instruction Type:Patient Education How to access health informa tion online - Detail Indication:Current non-smoker Start:19-Oct-2016 Instruction Type:Patient Education Patient Instructions Indication:Current non-smoker Start:19-Oct-2016 Instruction Type:Provider Instructions for Treatment How to access health informa tion online Indication:Current non-smoker Start:01-Oct-2016 Instruction Type:Patient Education Patient Instructions Indication:Current non-smoker Start:01-Oct-2016 Instruction Type:Provider Instructions for Treatment How to access health informa tion online Indication:BMI 39.0-39.9,adult Start:19-Apr-2016 Instruction Type:Patient Education How to access health informa tion online - Detail Indication:BMI 39.0-39.9,adult Start:19-Apr-2016 Instruction Type:Patient Education Patient Instructions Indication:BMI 39.0-39.9,adult Start:19-Apr-2016 Instruction Type:Provider Instructions for Treatment How to access health informa tion online Indication:BMI 38.0-38.9,adult Start:20-Feb-2016 Instruction Type:Patient Education How to access health informa tion online - Detail Indication:BMI 38.0-38.9,adult Start:20-Feb-2016 Instruction Type:Patient Education Patient Instructions Indication:BMI 38.0-38.9,adult Start:20-Feb-2016 Instruction Type:Provider Instructions for Treatment How to access health informa tion online Indication:Current non-smoker Start:16-Feb-2016 Instruction Type:Patient Education How to access health informa tion online - Detail Indication:Current non-smoker Start:16-Feb-2016 Instruction Type:Patient Education Patient Instructions Indication:Current non-smoker Start:16-Feb-2016 Instruction Type:Provider Instructions for Treatment How to access health informa tion online Indication:Impaired fasting glucose Start:22-Dec-2015 Instruction Type:Patient Education How to access health informa tion online - Detail Indication:Impaired fasting glucose Start:22-Dec-2015 Instruction Type:Patient Education Patient Instructions Indication:Impaired fasting glucose Start:22-Dec-2015 Instruction Type:Provider Instructions for Treatment Patient Instructions Indication:Stress reaction Start:04-Aug-2015 Instruction Type:Provider Instructions for Treatment Patient Instructions Indication:Impaired fasting glucose Start:03-Mar-2015 Instruction Type:Provider Instructions for Treatment How to access health informa tion online Indication:Need for prophylactic vaccination and inoculation against influenza Start:27-Jan-2015 Instruction Type:Patient Education How to access health informa tion online - Detail Indication:Need for prophylactic vaccination and inoculation against influenza Start:27-Jan-2015 Instruction Type:Patient Education Patient Instructions Indication:Need for prophylactic vaccination and inoculation against influenza Start:27-Jan-2015 Instruction Type:Provider Instructions for Treatment Patient Instructions Indication:Obesity, unspecified Start:01-Nov-2014 Instruction Type:Provider Instructions for Treatment Patient Instructions Indication:Obesity, unspecified Start:22-Apr-2014 Instruction Type:Provider Instructions for Treatment Patient Instructions Indication:Near syncope Start:18-Oct-2013 Instruction Type:Provider Instructions for Treatment Patient Instructions Indication:Depressive disorder Start:25-Sep-2013 Instruction Type:Provider Instructions for Treatment instructions Indication:Depressive disorder Start:15-Mar-2013 Instruction Type:Provider Instructions for Treatment Patient Instructions Indication:Depressive disorder Start:23-Jan-2013 Instruction Type:Provider Instructions for Treatment Patient Instructions Indication:Cyst, kidney, acquired Start:17-Feb-2012 Instruction Type:Provider Instructions for Treatment Patient Instructions Indication:Depressive disorder Start:27-Jan-2012 Instruction Type:Provider Instructions for Treatment Name Dates Details How to Access Health Informa tion Online using Patient Portal and [employer] Apps Indication:Non-smoker Start:31-Mar-2020 Instruction Type:Patient Education Patient Instructions Indication:Non-smoker Start:31-Mar-2020 Instruction Type:Provider Instructions for Treatment How to access health informa tion online Indication:Non-smoker Start:08-Feb-2020 Instruction Type:Patient Education How to access health informa tion online - Detail Indication:Non-smoker Start:08-Feb-2020 Instruction Type:Patient Education Patient Instructions Indication:Non-smoker Start:08-Feb-2020 Instruction Type:Provider Instructions for Treatment How to access health informa tion online Indication:Non-smoker Start:26-Nov-2019 Instruction Type:Patient Education How to access health informa tion online - Detail Indication:Non-smoker Start:26-Nov-2019 Instruction Type:Patient Education Patient Instructions Indication:Non-smoker Start:26-Nov-2019 Instruction Type:Provider Instructions for Treatment How to access health informa tion online Indication:BMI 35.0-35.9,adult Start:04-Jul-2019 Instruction Type:Patient Education How to access health informa tion online - Detail Indication:BMI 35.0-35.9,adult Start:04-Jul-2019 Instruction Type:Patient Education Patient Instructions Indication:BMI 35.0-35.9,adult Start:04-Jul-2019 Instruction Type:Provider Instructions for Treatment How to access health informa tion online Indication:Anxiety Start:18-Apr-2019 Instruction Type:Patient Education How to access health informa tion online - Detail Indication:Anxiety Start:18-Apr-2019 Instruction Type:Patient Education Patient Instructions Indication:Anxiety Start:18-Apr-2019 Instruction Type:Provider Instructions for Treatment How to access health informa tion online Indication:BMI 35.0-35.9,adult Start:12-Apr-2019 Instruction Type:Patient Education How to access health informa tion online - Detail Indication:BMI 35.0-35.9,adult Start:12-Apr-2019 Instruction Type:Patient Education Patient Instructions Indication:BMI 35.0-35.9,adult Start:12-Apr-2019 Instruction Type:Provider Instructions for Treatment How to access health informa tion online Indication:BMI 36.0-36.9,adult Start:13-Oct-2018 Instruction Type:Patient Education How to access health informa tion online - Detail Indication:BMI 36.0-36.9,adult Start:13-Oct-2018 Instruction Type:Patient Education Patient Instructions Indication:BMI 36.0-36.9,adult Start:13-Oct-2018 Instruction Type:Provider Instructions for Treatment How to access health informa tion online Indication:Current non-smoker Start:14-Jul-2018 Instruction Type:Patient Education How to access health informa tion online - Detail Indication:Current non-smoker Start:14-Jul-2018 Instruction Type:Patient Education Patient Instructions Indication:Current non-smoker Start:14-Jul-2018 Instruction Type:Provider Instructions for Treatment How to access health informa tion online Indication:Current non-smoker Start:22-Jun-2018 Instruction Type:Patient Education How to access health informa tion online - Detail Indication:Current non-smoker Start:22-Jun-2018 Instruction Type:Patient Education Patient Instructions Indication:Sinusitis, bacterial Start:22-Jun-2018 Instruction Type:Provider Instructions for Treatment How to access health informa tion online Indication:Current non-smoker Start:16-Jun-2018 Instruction Type:Patient Education How to access health informa tion online - Detail Indication:Current non-smoker Start:16-Jun-2018 Instruction Type:Patient Education Patient Instructions Indication:Current non-smoker Start:16-Jun-2018 Instruction Type:Provider Instructions for Treatment Patient Instructions Indication:BMI 38.0-38.9,adult Start:23-Jan-2018 Instruction Type:Provider Instructions for Treatment How to access health informa tion online Indication:BMI 38.0-38.9,adult Start:23-Jan-2018 Instruction Type:Patient Education How to access health informa tion online - Detail Indication:BMI 38.0-38.9,adult Start:23-Jan-2018 Instruction Type:Patient Education How to access health informa tion online Indication:Current non-smoker Start:21-Nov-2017 Instruction Type:Patient Education How to access health informa tion online - Detail Indication:Current non-smoker Start:21-Nov-2017 Instruction Type:Patient Education Patient Instructions Indication:Current non-smoker Start:21-Nov-2017 Instruction Type:Provider Instructions for Treatment How to access health informa tion online Indication:BMI 38.0-38.9,adult Start:18-Nov-2017 Instruction Type:Patient Education How to access health informa tion online - Detail Indication:BMI 38.0-38.9,adult Start:18-Nov-2017 Instruction Type:Patient Education Patient Instructions Indication:BMI 38.0-38.9,adult Start:18-Nov-2017 Instruction Type:Provider Instructions for Treatment How to access health informa tion online Indication:Current non-smoker Start:27-Oct-2017 Instruction Type:Patient Education How to access health informa tion online - Detail Indication:Current non-smoker Start:27-Oct-2017 Instruction Type:Patient Education Patient Instructions Indication:Current non-smoker Start:27-Oct-2017 Instruction Type:Provider Instructions for Treatment How to access health informa tion online Indication:Current non-smoker Start:20-Jul-2017 Instruction Type:Patient Education How to access health informa tion online - Detail Indication:Current non-smoker Start:20-Jul-2017 Instruction Type:Patient Education Patient Instructions Indication:Current non-smoker Start:20-Jul-2017 Instruction Type:Provider Instructions for Treatment How to access health informa tion online Indication:Current non-smoker Start:17-Jun-2017 Instruction Type:Patient Education How to access health informa tion online - Detail Indication:Current non-smoker Start:17-Jun-2017 Instruction Type:Patient Education Patient Instructions Indication:Current non-smoker Start:17-Jun-2017 Instruction Type:Provider Instructions for Treatment How to access health informa tion online Indication:BMI 37.0-37.9, adult Start:19-Oct-2016 Instruction Type:Patient Education How to access health informa tion online - Detail Indication:Current non-smoker Start:19-Oct-2016 Instruction Type:Patient Education Patient Instructions Indication:Current non-smoker Start:19-Oct-2016 Instruction Type:Provider Instructions for Treatment How to access health informa tion online Indication:Current non-smoker Start:01-Oct-2016 Instruction Type:Patient Education Patient Instructions Indication:Current non-smoker Start:01-Oct-2016 Instruction Type:Provider Instructions for Treatment How to access health informa tion online Indication:BMI 39.0-39.9,adult Start:19-Apr-2016 Instruction Type:Patient Education How to access health informa tion online - Detail Indication:BMI 39.0-39.9,adult Start:19-Apr-2016 Instruction Type:Patient Education Patient Instructions Indication:BMI 39.0-39.9,adult Start:19-Apr-2016 Instruction Type:Provider Instructions for Treatment How to access health informa tion online Indication:BMI 38.0-38.9,adult Start:20-Feb-2016 Instruction Type:Patient Education How to access health informa tion online - Detail Indication:BMI 38.0-38.9,adult Start:20-Feb-2016 Instruction Type:Patient Education Patient Instructions Indication:BMI 38.0-38.9,adult Start:20-Feb-2016 Instruction Type:Provider Instructions for Treatment How to access health informa tion online Indication:Current non-smoker Start:16-Feb-2016 Instruction Type:Patient Education How to access health informa tion online - Detail Indication:Current non-smoker Start:16-Feb-2016 Instruction Type:Patient Education Patient Instructions Indication:Current non-smoker Start:16-Feb-2016 Instruction Type:Provider Instructions for Treatment How to access health informa tion online Indication:Impaired fasting glucose Start:22-Dec-2015 Instruction Type:Patient Education How to access health informa tion online - Detail Indication:Impaired fasting glucose Start:22-Dec-2015 Instruction Type:Patient Education Patient Instructions Indication:Impaired fasting glucose Start:22-Dec-2015 Instruction Type:Provider Instructions for Treatment Patient Instructions Indication:Stress reaction Start:04-Aug-2015 Instruction Type:Provider Instructions for Treatment Patient Instructions Indication:Impaired fasting glucose Start:03-Mar-2015 Instruction Type:Provider Instructions for Treatment How to access health informa tion online Indication:Need for prophylactic vaccination and inoculation against influenza Start:27-Jan-2015 Instruction Type:Patient Education How to access health informa tion online - Detail Indication:Need for prophylactic vaccination and inoculation against influenza Start:27-Jan-2015 Instruction Type:Patient Education Patient Instructions Indication:Need for prophylactic vaccination and inoculation against influenza Start:27-Jan-2015 Instruction Type:Provider Instructions for Treatment Patient Instructions Indication:Obesity, unspecified Start:01-Nov-2014 Instruction Type:Provider Instructions for Treatment Patient Instructions Indication:Obesity, unspecified Start:22-Apr-2014 Instruction Type:Provider Instructions for Treatment Patient Instructions Indication:Near syncope Start:18-Oct-2013 Instruction Type:Provider Instructions for Treatment Patient Instructions Indication:Depressive disorder Start:25-Sep-2013 Instruction Type:Provider Instructions for Treatment instructions Indication:Depressive disorder Start:15-Mar-2013 Instruction Type:Provider Instructions for Treatment Patient Instructions Indication:Depressive disorder Start:23-Jan-2013 Instruction Type:Provider Instructions for Treatment Patient Instructions Indication:Cyst, kidney, acquired Start:17-Feb-2012 Instruction Type:Provider Instructions for Treatment Patient Instructions Indication:Depressive disorder Start:27-Jan-2012 Instruction Type:Provider Instructions for Treatment Name Dates Details How to Access Health Informa tion Online using Patient Portal and [employer] Apps Indication:Non-smoker Start:31-Mar-2020 Instruction Type:Patient Education Patient Instructions Indication:Non-smoker Start:31-Mar-2020 Instruction Type:Provider Instructions for Treatment How to access health informa tion online Indication:Non-smoker Start:08-Feb-2020 Instruction Type:Patient Education How to access health informa tion online - Detail Indication:Non-smoker Start:08-Feb-2020 Instruction Type:Patient Education Patient Instructions Indication:Non-smoker Start:08-Feb-2020 Instruction Type:Provider Instructions for Treatment How to access health informa tion online Indication:Non-smoker Start:26-Nov-2019 Instruction Type:Patient Education How to access health informa tion online - Detail Indication:Non-smoker Start:26-Nov-2019 Instruction Type:Patient Education Patient Instructions Indication:Non-smoker Start:26-Nov-2019 Instruction Type:Provider Instructions for Treatment How to access health informa tion online Indication:BMI 35.0-35.9,adult Start:04-Jul-2019 Instruction Type:Patient Education How to access health informa tion online - Detail Indication:BMI 35.0-35.9,adult Start:04-Jul-2019 Instruction Type:Patient Education Patient Instructions Indication:BMI 35.0-35.9,adult Start:04-Jul-2019 Instruction Type:Provider Instructions for Treatment How to access health informa tion online Indication:Anxiety Start:18-Apr-2019 Instruction Type:Patient Education How to access health informa tion online - Detail Indication:Anxiety Start:18-Apr-2019 Instruction Type:Patient Education Patient Instructions Indication:Anxiety Start:18-Apr-2019 Instruction Type:Provider Instructions for Treatment How to access health informa tion online Indication:BMI 35.0-35.9,adult Start:12-Apr-2019 Instruction Type:Patient Education How to access health informa tion online - Detail Indication:BMI 35.0-35.9,adult Start:12-Apr-2019 Instruction Type:Patient Education Patient Instructions Indication:BMI 35.0-35.9,adult Start:12-Apr-2019 Instruction Type:Provider Instructions for Treatment How to access health informa tion online Indication:BMI 36.0-36.9,adult Start:13-Oct-2018 Instruction Type:Patient Education How to access health informa tion online - Detail Indication:BMI 36.0-36.9,adult Start:13-Oct-2018 Instruction Type:Patient Education Patient Instructions Indication:BMI 36.0-36.9,adult Start:13-Oct-2018 Instruction Type:Provider Instructions for Treatment How to access health informa tion online Indication:Current non-smoker Start:14-Jul-2018 Instruction Type:Patient Education How to access health informa tion online - Detail Indication:Current non-smoker Start:14-Jul-2018 Instruction Type:Patient Education Patient Instructions Indication:Current non-smoker Start:14-Jul-2018 Instruction Type:Provider Instructions for Treatment How to access health informa tion online Indication:Current non-smoker Start:22-Jun-2018 Instruction Type:Patient Education How to access health informa tion online - Detail Indication:Current non-smoker Start:22-Jun-2018 Instruction Type:Patient Education Patient Instructions Indication:Sinusitis, bacterial Start:22-Jun-2018 Instruction Type:Provider Instructions for Treatment How to access health informa tion online Indication:Current non-smoker Start:16-Jun-2018 Instruction Type:Patient Education How to access health informa tion online - Detail Indication:Current non-smoker Start:16-Jun-2018 Instruction Type:Patient Education Patient Instructions Indication:Current non-smoker Start:16-Jun-2018 Instruction Type:Provider Instructions for Treatment Patient Instructions Indication:BMI 38.0-38.9,adult Start:23-Jan-2018 Instruction Type:Provider Instructions for Treatment How to access health informa tion online Indication:BMI 38.0-38.9,adult Start:23-Jan-2018 Instruction Type:Patient Education How to access health informa tion online - Detail Indication:BMI 38.0-38.9,adult Start:23-Jan-2018 Instruction Type:Patient Education How to access health informa tion online Indication:Current non-smoker Start:21-Nov-2017 Instruction Type:Patient Education How to access health informa tion online - Detail Indication:Current non-smoker Start:21-Nov-2017 Instruction Type:Patient Education Patient Instructions Indication:Current non-smoker Start:21-Nov-2017 Instruction Type:Provider Instructions for Treatment How to access health informa tion online Indication:BMI 38.0-38.9,adult Start:18-Nov-2017 Instruction Type:Patient Education How to access health informa tion online - Detail Indication:BMI 38.0-38.9,adult Start:18-Nov-2017 Instruction Type:Patient Education Patient Instructions Indication:BMI 38.0-38.9,adult Start:18-Nov-2017 Instruction Type:Provider Instructions for Treatment How to access health informa tion online Indication:Current non-smoker Start:27-Oct-2017 Instruction Type:Patient Education How to access health informa tion online - Detail Indication:Current non-smoker Start:27-Oct-2017 Instruction Type:Patient Education Patient Instructions Indication:Current non-smoker Start:27-Oct-2017 Instruction Type:Provider Instructions for Treatment How to access health informa tion online Indication:Current non-smoker Start:20-Jul-2017 Instruction Type:Patient Education How to access health informa tion online - Detail Indication:Current non-smoker Start:20-Jul-2017 Instruction Type:Patient Education Patient Instructions Indication:Current non-smoker Start:20-Jul-2017 Instruction Type:Provider Instructions for Treatment How to access health informa tion online Indication:Current non-smoker Start:17-Jun-2017 Instruction Type:Patient Education How to access health informa tion online - Detail Indication:Current non-smoker Start:17-Jun-2017 Instruction Type:Patient Education Patient Instructions Indication:Current non-smoker Start:17-Jun-2017 Instruction Type:Provider Instructions for Treatment How to access health informa tion online Indication:BMI 37.0-37.9, adult Start:19-Oct-2016 Instruction Type:Patient Education How to access health informa tion online - Detail Indication:Current non-smoker Start:19-Oct-2016 Instruction Type:Patient Education Patient Instructions Indication:Current non-smoker Start:19-Oct-2016 Instruction Type:Provider Instructions for Treatment How to access health informa tion online Indication:Current non-smoker Start:01-Oct-2016 Instruction Type:Patient Education Patient Instructions Indication:Current non-smoker Start:01-Oct-2016 Instruction Type:Provider Instructions for Treatment How to access health informa tion online Indication:BMI 39.0-39.9,adult Start:19-Apr-2016 Instruction Type:Patient Education How to access health informa tion online - Detail Indication:BMI 39.0-39.9,adult Start:19-Apr-2016 Instruction Type:Patient Education Patient Instructions Indication:BMI 39.0-39.9,adult Start:19-Apr-2016 Instruction Type:Provider Instructions for Treatment How to access health informa tion online Indication:BMI 38.0-38.9,adult Start:20-Feb-2016 Instruction Type:Patient Education How to access health informa tion online - Detail Indication:BMI 38.0-38.9,adult Start:20-Feb-2016 Instruction Type:Patient Education Patient Instructions Indication:BMI 38.0-38.9,adult Start:20-Feb-2016 Instruction Type:Provider Instructions for Treatment How to access health informa tion online Indication:Current non-smoker Start:16-Feb-2016 Instruction Type:Patient Education How to access health informa tion online - Detail Indication:Current non-smoker Start:16-Feb-2016 Instruction Type:Patient Education Patient Instructions Indication:Current non-smoker Start:16-Feb-2016 Instruction Type:Provider Instructions for Treatment How to access health informa tion online Indication:Impaired fasting glucose Start:22-Dec-2015 Instruction Type:Patient Education How to access health informa tion online - Detail Indication:Impaired fasting glucose Start:22-Dec-2015 Instruction Type:Patient Education Patient Instructions Indication:Impaired fasting glucose Start:22-Dec-2015 Instruction Type:Provider Instructions for Treatment Patient Instructions Indication:Stress reaction Start:04-Aug-2015 Instruction Type:Provider Instructions for Treatment Patient Instructions Indication:Impaired fasting glucose Start:03-Mar-2015 Instruction Type:Provider Instructions for Treatment How to access health informa tion online Indication:Need for prophylactic vaccination and inoculation against influenza Start:27-Jan-2015 Instruction Type:Patient Education How to access health informa tion online - Detail Indication:Need for prophylactic vaccination and inoculation against influenza Start:27-Jan-2015 Instruction Type:Patient Education Patient Instructions Indication:Need for prophylactic vaccination and inoculation against influenza Start:27-Jan-2015 Instruction Type:Provider Instructions for Treatment Patient Instructions Indication:Obesity, unspecified Start:01-Nov-2014 Instruction Type:Provider Instructions for Treatment Patient Instructions Indication:Obesity, unspecified Start:22-Apr-2014 Instruction Type:Provider Instructions for Treatment Patient Instructions Indication:Near syncope Start:18-Oct-2013 Instruction Type:Provider Instructions for Treatment Patient Instructions Indication:Depressive disorder Start:25-Sep-2013 Instruction Type:Provider Instructions for Treatment instructions Indication:Depressive disorder Start:15-Mar-2013 Instruction Type:Provider Instructions for Treatment Patient Instructions Indication:Depressive disorder Start:23-Jan-2013 Instruction Type:Provider Instructions for Treatment Patient Instructions Indication:Cyst, kidney, acquired Start:17-Feb-2012 Instruction Type:Provider Instructions for Treatment Patient Instructions Indication:Depressive disorder Start:27-Jan-2012 Instruction Type:Provider Instructions for Treatment Name Dates Details How to access health informa tion online Indication:BMI 36.0-36.9,adult Start:13-Oct-2018 Instruction Type:Patient Education How to access health informa tion online - Detail Indication:BMI 36.0-36.9,adult Start:13-Oct-2018 Instruction Type:Patient Education Patient Instructions Indication:BMI 36.0-36.9,adult Start:13-Oct-2018 Instruction Type:Provider Instructions for Treatment How to access health informa tion online Indication:Current non-smoker Start:14-Jul-2018 Instruction Type:Patient Education How to access health informa tion online - Detail Indication:Current non-smoker Start:14-Jul-2018 Instruction Type:Patient Education Patient Instructions Indication:Current non-smoker Start:14-Jul-2018 Instruction Type:Provider Instructions for Treatment How to access health informa tion online Indication:Current non-smoker Start:22-Jun-2018 Instruction Type:Patient Education How to access health informa tion online - Detail Indication:Current non-smoker Start:22-Jun-2018 Instruction Type:Patient Education Patient Instructions Indication:Sinusitis, bacterial Start:22-Jun-2018 Instruction Type:Provider Instructions for Treatment How to access health informa tion online Indication:Current non-smoker Start:16-Jun-2018 Instruction Type:Patient Education How to access health informa tion online - Detail Indication:Current non-smoker Start:16-Jun-2018 Instruction Type:Patient Education Patient Instructions Indication:Current non-smoker Start:16-Jun-2018 Instruction Type:Provider Instructions for Treatment Patient Instructions Indication:BMI 38.0-38.9,adult Start:23-Jan-2018 Instruction Type:Provider Instructions for Treatment How to access health informa tion online Indication:BMI 38.0-38.9,adult Start:23-Jan-2018 Instruction Type:Patient Education How to access health informa tion online - Detail Indication:BMI 38.0-38.9,adult Start:23-Jan-2018 Instruction Type:Patient Education How to access health informa tion online Indication:Current non-smoker Start:21-Nov-2017 Instruction Type:Patient Education How to access health informa tion online - Detail Indication:Current non-smoker Start:21-Nov-2017 Instruction Type:Patient Education Patient Instructions Indication:Current non-smoker Start:21-Nov-2017 Instruction Type:Provider Instructions for Treatment How to access health informa tion online Indication:BMI 38.0-38.9,adult Start:18-Nov-2017 Instruction Type:Patient Education How to access health informa tion online - Detail Indication:BMI 38.0-38.9,adult Start:18-Nov-2017 Instruction Type:Patient Education Patient Instructions Indication:BMI 38.0-38.9,adult Start:18-Nov-2017 Instruction Type:Provider Instructions for Treatment How to access health informa tion online Indication:Current non-smoker Start:27-Oct-2017 Instruction Type:Patient Education How to access health informa tion online - Detail Indication:Current non-smoker Start:27-Oct-2017 Instruction Type:Patient Education Patient Instructions Indication:Current non-smoker Start:27-Oct-2017 Instruction Type:Provider Instructions for Treatment How to access health informa tion online Indication:Current non-smoker Start:20-Jul-2017 Instruction Type:Patient Education How to access health informa tion online - Detail Indication:Current non-smoker Start:20-Jul-2017 Instruction Type:Patient Education Patient Instructions Indication:Current non-smoker Start:20-Jul-2017 Instruction Type:Provider Instructions for Treatment How to access health informa tion online Indication:Current non-smoker Start:17-Jun-2017 Instruction Type:Patient Education How to access health informa tion online - Detail Indication:Current non-smoker Start:17-Jun-2017 Instruction Type:Patient Education Patient Instructions Indication:Current non-smoker Start:17-Jun-2017 Instruction Type:Provider Instructions for Treatment How to access health informa tion online Indication:BMI 37.0-37.9, adult Start:19-Oct-2016 Instruction Type:Patient Education How to access health informa tion online - Detail Indication:Current non-smoker Start:19-Oct-2016 Instruction Type:Patient Education Patient Instructions Indication:Current non-smoker Start:19-Oct-2016 Instruction Type:Provider Instructions for Treatment How to access health informa tion online Indication:Current non-smoker Start:01-Oct-2016 Instruction Type:Patient Education Patient Instructions Indication:Current non-smoker Start:01-Oct-2016 Instruction Type:Provider Instructions for Treatment How to access health informa tion online Indication:BMI 39.0-39.9,adult Start:19-Apr-2016 Instruction Type:Patient Education How to access health informa tion online - Detail Indication:BMI 39.0-39.9,adult Start:19-Apr-2016 Instruction Type:Patient Education Patient Instructions Indication:BMI 39.0-39.9,adult Start:19-Apr-2016 Instruction Type:Provider Instructions for Treatment How to access health informa tion online Indication:BMI 38.0-38.9,adult Start:20-Feb-2016 Instruction Type:Patient Education How to access health informa tion online - Detail Indication:BMI 38.0-38.9,adult Start:20-Feb-2016 Instruction Type:Patient Education Patient Instructions Indication:BMI 38.0-38.9,adult Start:20-Feb-2016 Instruction Type:Provider Instructions for Treatment How to access health informa tion online Indication:Current non-smoker Start:16-Feb-2016 Instruction Type:Patient Education How to access health informa tion online - Detail Indication:Current non-smoker Start:16-Feb-2016 Instruction Type:Patient Education Patient Instructions Indication:Current non-smoker Start:16-Feb-2016 Instruction Type:Provider Instructions for Treatment How to access health informa tion online Indication:Impaired fasting glucose Start:22-Dec-2015 Instruction Type:Patient Education How to access health informa tion online - Detail Indication:Impaired fasting glucose Start:22-Dec-2015 Instruction Type:Patient Education Patient Instructions Indication:Impaired fasting glucose Start:22-Dec-2015 Instruction Type:Provider Instructions for Treatment Patient Instructions Indication:Stress reaction Start:04-Aug-2015 Instruction Type:Provider Instructions for Treatment Patient Instructions Indication:Impaired fasting glucose Start:03-Mar-2015 Instruction Type:Provider Instructions for Treatment How to access health informa tion online Indication:Need for prophylactic vaccination and inoculation against influenza Start:27-Jan-2015 Instruction Type:Patient Education How to access health informa tion online - Detail Indication:Need for prophylactic vaccination and inoculation against influenza Start:27-Jan-2015 Instruction Type:Patient Education Patient Instructions Indication:Need for prophylactic vaccination and inoculation against influenza Start:27-Jan-2015 Instruction Type:Provider Instructions for Treatment Patient Instructions Indication:Obesity, unspecified Start:01-Nov-2014 Instruction Type:Provider Instructions for Treatment Patient Instructions Indication:Obesity, unspecified Start:22-Apr-2014 Instruction Type:Provider Instructions for Treatment Patient Instructions Indication:Near syncope Start:18-Oct-2013 Instruction Type:Provider Instructions for Treatment Patient Instructions Indication:Depressive disorder Start:25-Sep-2013 Instruction Type:Provider Instructions for Treatment instructions Indication:Depressive disorder Start:15-Mar-2013 Instruction Type:Provider Instructions for Treatment Patient Instructions Indication:Depressive disorder Start:23-Jan-2013 Instruction Type:Provider Instructions for Treatment Patient Instructions Indication:Cyst, kidney, acquired Start:17-Feb-2012 Instruction Type:Provider Instructions for Treatment Patient Instructions Indication:Depressive disorder Start:27-Jan-2012 Instruction Type:Provider Instructions for Treatment Name Dates Details Patient Instructions Indication:BMI 34.0-34.9,adult Start:01-May-2020 Instruction Type:Provider Instructions for Treatment How to Access Health Informa tion Online using Patient Portal and [employer] Indication:BMI 34.0-34.9,adult Start:01-May-2020 Instruction Type:Patient Education How to Access Health Informa tion Online using Patient Portal and [employer] Apps Indication:Non-smoker Start:31-Mar-2020 Instruction Type:Patient Education Patient Instructions Indication:Non-smoker Start:31-Mar-2020 Instruction Type:Provider Instructions for Treatment How to access health informa tion online Indication:Non-smoker Start:08-Feb-2020 Instruction Type:Patient Education How to access health informa tion online - Detail Indication:Non-smoker Start:08-Feb-2020 Instruction Type:Patient Education Patient Instructions Indication:Non-smoker Start:08-Feb-2020 Instruction Type:Provider Instructions for Treatment How to access health informa tion online Indication:Non-smoker Start:26-Nov-2019 Instruction Type:Patient Education How to access health informa tion online - Detail Indication:Non-smoker Start:26-Nov-2019 Instruction Type:Patient Education Patient Instructions Indication:Non-smoker Start:26-Nov-2019 Instruction Type:Provider Instructions for Treatment How to access health informa tion online Indication:BMI 35.0-35.9,adult Start:04-Jul-2019 Instruction Type:Patient Education How to access health informa tion online - Detail Indication:BMI 35.0-35.9,adult Start:04-Jul-2019 Instruction Type:Patient Education Patient Instructions Indication:BMI 35.0-35.9,adult Start:04-Jul-2019 Instruction Type:Provider Instructions for Treatment How to access health informa tion online Indication:Anxiety Start:18-Apr-2019 Instruction Type:Patient Education How to access health informa tion online - Detail Indication:Anxiety Start:18-Apr-2019 Instruction Type:Patient Education Patient Instructions Indication:Anxiety Start:18-Apr-2019 Instruction Type:Provider Instructions for Treatment How to access health informa tion online Indication:BMI 35.0-35.9,adult Start:12-Apr-2019 Instruction Type:Patient Education How to access health informa tion online - Detail Indication:BMI 35.0-35.9,adult Start:12-Apr-2019 Instruction Type:Patient Education Patient Instructions Indication:BMI 35.0-35.9,adult Start:12-Apr-2019 Instruction Type:Provider Instructions for Treatment How to access health informa tion online Indication:BMI 36.0-36.9,adult Start:13-Oct-2018 Instruction Type:Patient Education How to access health informa tion online - Detail Indication:BMI 36.0-36.9,adult Start:13-Oct-2018 Instruction Type:Patient Education Patient Instructions Indication:BMI 36.0-36.9,adult Start:13-Oct-2018 Instruction Type:Provider Instructions for Treatment How to access health informa tion online Indication:Current non-smoker Start:14-Jul-2018 Instruction Type:Patient Education How to access health informa tion online - Detail Indication:Current non-smoker Start:14-Jul-2018 Instruction Type:Patient Education Patient Instructions Indication:Current non-smoker Start:14-Jul-2018 Instruction Type:Provider Instructions for Treatment How to access health informa tion online Indication:Current non-smoker Start:22-Jun-2018 Instruction Type:Patient Education How to access health informa tion online - Detail Indication:Current non-smoker Start:22-Jun-2018 Instruction Type:Patient Education Patient Instructions Indication:Sinusitis, bacterial Start:22-Jun-2018 Instruction Type:Provider Instructions for Treatment How to access health informa tion online Indication:Current non-smoker Start:16-Jun-2018 Instruction Type:Patient Education How to access health informa tion online - Detail Indication:Current non-smoker Start:16-Jun-2018 Instruction Type:Patient Education Patient Instructions Indication:Current non-smoker Start:16-Jun-2018 Instruction Type:Provider Instructions for Treatment Patient Instructions Indication:BMI 38.0-38.9,adult Start:23-Jan-2018 Instruction Type:Provider Instructions for Treatment How to access health informa tion online Indication:BMI 38.0-38.9,adult Start:23-Jan-2018 Instruction Type:Patient Education How to access health informa tion online - Detail Indication:BMI 38.0-38.9,adult Start:23-Jan-2018 Instruction Type:Patient Education How to access health informa tion online Indication:Current non-smoker Start:21-Nov-2017 Instruction Type:Patient Education How to access health informa tion online - Detail Indication:Current non-smoker Start:21-Nov-2017 Instruction Type:Patient Education Patient Instructions Indication:Current non-smoker Start:21-Nov-2017 Instruction Type:Provider Instructions for Treatment How to access health informa tion online Indication:BMI 38.0-38.9,adult Start:18-Nov-2017 Instruction Type:Patient Education How to access health informa tion online - Detail Indication:BMI 38.0-38.9,adult Start:18-Nov-2017 Instruction Type:Patient Education Patient Instructions Indication:BMI 38.0-38.9,adult Start:18-Nov-2017 Instruction Type:Provider Instructions for Treatment How to access health informa tion online Indication:Current non-smoker Start:27-Oct-2017 Instruction Type:Patient Education How to access health informa tion online - Detail Indication:Current non-smoker Start:27-Oct-2017 Instruction Type:Patient Education Patient Instructions Indication:Current non-smoker Start:27-Oct-2017 Instruction Type:Provider Instructions for Treatment How to access health informa tion online Indication:Current non-smoker Start:20-Jul-2017 Instruction Type:Patient Education How to access health informa tion online - Detail Indication:Current non-smoker Start:20-Jul-2017 Instruction Type:Patient Education Patient Instructions Indication:Current non-smoker Start:20-Jul-2017 Instruction Type:Provider Instructions for Treatment How to access health informa tion online Indication:Current non-smoker Start:17-Jun-2017 Instruction Type:Patient Education How to access health informa tion online - Detail Indication:Current non-smoker Start:17-Jun-2017 Instruction Type:Patient Education Patient Instructions Indication:Current non-smoker Start:17-Jun-2017 Instruction Type:Provider Instructions for Treatment How to access health informa tion online Indication:BMI 37.0-37.9, adult Start:19-Oct-2016 Instruction Type:Patient Education How to access health informa tion online - Detail Indication:Current non-smoker Start:19-Oct-2016 Instruction Type:Patient Education Patient Instructions Indication:Current non-smoker Start:19-Oct-2016 Instruction Type:Provider Instructions for Treatment How to access health informa tion online Indication:Current non-smoker Start:01-Oct-2016 Instruction Type:Patient Education Patient Instructions Indication:Current non-smoker Start:01-Oct-2016 Instruction Type:Provider Instructions for Treatment How to access health informa tion online Indication:BMI 39.0-39.9,adult Start:19-Apr-2016 Instruction Type:Patient Education How to access health informa tion online - Detail Indication:BMI 39.0-39.9,adult Start:19-Apr-2016 Instruction Type:Patient Education Patient Instructions Indication:BMI 39.0-39.9,adult Start:19-Apr-2016 Instruction Type:Provider Instructions for Treatment How to access health informa tion online Indication:BMI 38.0-38.9,adult Start:20-Feb-2016 Instruction Type:Patient Education How to access health informa tion online - Detail Indication:BMI 38.0-38.9,adult Start:20-Feb-2016 Instruction Type:Patient Education Patient Instructions Indication:BMI 38.0-38.9,adult Start:20-Feb-2016 Instruction Type:Provider Instructions for Treatment How to access health informa [employer] online Indication:Current non-smoker Start:16-Feb-2016 Instruction Type:Patient Education How to access health informa tion online - Detail Indication:Current non-smoker Start:16-Feb-2016 Instruction Type:Patient Education Patient Instructions Indication:Current non-smoker Start:16-Feb-2016 Instruction Type:Provider Instructions for Treatment How to access health informa tion online Indication:Impaired fasting glucose Start:22-Dec-2015 Instruction Type:Patient Education How to access health informa tion online - Detail Indication:Impaired fasting glucose Start:22-Dec-2015 Instruction Type:Patient Education Patient Instructions Indication:Impaired fasting glucose Start:22-Dec-2015 Instruction Type:Provider Instructions for Treatment Patient Instructions Indication:Stress reaction Start:04-Aug-2015 Instruction Type:Provider Instructions for Treatment Patient Instructions Indication:Impaired fasting glucose Start:03-Mar-2015 Instruction Type:Provider Instructions for Treatment How to access health informa tion online Indication:Need for prophylactic vaccination and inoculation against influenza Start:27-Jan-2015 Instruction Type:Patient Education How to access health informa tion online - Detail Indication:Need for prophylactic vaccination and inoculation against influenza Start:27-Jan-2015 Instruction Type:Patient Education Patient Instructions Indication:Need for prophylactic vaccination and inoculation against influenza Start:27-Jan-2015 Instruction Type:Provider Instructions for Treatment Patient Instructions Indication:Obesity, unspecified Start:01-Nov-2014 Instruction Type:Provider Instructions for Treatment Patient Instructions Indication:Obesity, unspecified Start:22-Apr-2014 Instruction Type:Provider Instructions for Treatment Patient Instructions Indication:Near syncope Start:18-Oct-2013 Instruction Type:Provider Instructions for Treatment Patient Instructions Indication:Depressive disorder Start:25-Sep-2013 Instruction Type:Provider Instructions for Treatment instructions Indication:Depressive disorder Start:15-Mar-2013 Instruction Type:Provider Instructions for Treatment Patient Instructions Indication:Depressive disorder Start:23-Jan-2013 Instruction Type:Provider Instructions for Treatment Patient Instructions Indication:Cyst, kidney, acquired Start:17-Feb-2012 Instruction Type:Provider Instructions for Treatment Patient Instructions Indication:Depressive disorder Start:27-Jan-2012 Instruction Type:Provider Instructions for Treatment Name Dates Details Current non-smoker : How to access health information online Indication:Current non-smoker Current non-smoker : How to access health information online - Detail Indication:Current non-smoker Sinusitis, bacterial : Patie nt Instructions Indication:Sinusitis, bacterial Current non-smoker : Patient Instructions Indication:Current non-smoker BMI 38.0-38.9,adult : Patien t Instructions Indication:BMI 38.0-38.9,adult BMI 38.0-38.9,adult : How to access health information online Indication:BMI 38.0-38.9,adult BMI 38.0-38.9,adult : How to access health information online - Detail Indication:BMI 38.0-38.9,adult BMI 37.0-37.9, adult : How t o access health information online Indication:BMI 37.0-37.9, adult BMI 39.0-39.9,adult : How to access health information online Indication:BMI 39.0-39.9,adult BMI 39.0-39.9,adult : How to access health information online - Detail Indication:BMI 39.0-39.9,adult BMI 39.0-39.9,adult : Patien t Instructions Indication:BMI 39.0-39.9,adult Impaired fasting glucose : H ow to access health information online Indication:Impaired fasting glucose Impaired fasting glucose : H ow to access health information online - Detail Indication:Impaired fasting glucose Impaired fasting glucose : P atient Instructions Indication:Impaired fasting glucose Stress reaction : Patient In structions Indication:Stress reaction Need for prophylactic vaccin ation and inoculation against influenza : How to access health information online Indication:Need for prophylactic vaccination and inoculation against influenza Need for prophylactic vaccin ation and inoculation against influenza : How to access health information online - Detail Indication:Need for prophylactic vaccination and inoculation against influenza Need for prophylactic vaccin ation and inoculation against influenza : Patient Instructions Indication:Need for prophylactic vaccination and inoculation against influenza Obesity, unspecified : Patie nt Instructions Indication:Obesity, unspecified Near syncope : Patient Instr uctions Indication:Near syncope Depressive disorder : Patien t Instructions Indication:Depressive disorder Depressive disorder : instru ctions Indication:Depressive disorder Cyst, kidney, acquired : Pat ient Instructions Indication:Cyst, kidney, acquired Name Dates Details How to access health informa tion online Indication:BMI 36.0-36.9,adult Start:13-Oct-2018 Instruction Type:Patient Education How to access health informa tion online - Detail Indication:BMI 36.0-36.9,adult Start:13-Oct-2018 Instruction Type:Patient Education Patient Instructions Indication:BMI 36.0-36.9,adult Start:13-Oct-2018 Instruction Type:Provider Instructions for Treatment How to access health informa tion online Indication:Current non-smoker Start:14-Jul-2018 Instruction Type:Patient Education How to access health informa tion online - Detail Indication:Current non-smoker Start:14-Jul-2018 Instruction Type:Patient Education Patient Instructions Indication:Current non-smoker Start:14-Jul-2018 Instruction Type:Provider Instructions for Treatment How to access health informa tion online Indication:Current non-smoker Start:22-Jun-2018 Instruction Type:Patient Education How to access health informa tion online - Detail Indication:Current non-smoker Start:22-Jun-2018 Instruction Type:Patient Education Patient Instructions Indication:Sinusitis, bacterial Start:22-Jun-2018 Instruction Type:Provider Instructions for Treatment How to access health informa tion online Indication:Current non-smoker Start:16-Jun-2018 Instruction Type:Patient Education How to access health informa tion online - Detail Indication:Current non-smoker Start:16-Jun-2018 Instruction Type:Patient Education Patient Instructions Indication:Current non-smoker Start:16-Jun-2018 Instruction Type:Provider Instructions for Treatment Patient Instructions Indication:BMI 38.0-38.9,adult Start:23-Jan-2018 Instruction Type:Provider Instructions for Treatment How to access health informa tion online Indication:BMI 38.0-38.9,adult Start:23-Jan-2018 Instruction Type:Patient Education How to access health informa tion online - Detail Indication:BMI 38.0-38.9,adult Start:23-Jan-2018 Instruction Type:Patient Education How to access health informa tion online Indication:Current non-smoker Start:21-Nov-2017 Instruction Type:Patient Education How to access health informa tion online - Detail Indication:Current non-smoker Start:21-Nov-2017 Instruction Type:Patient Education Patient Instructions Indication:Current non-smoker Start:21-Nov-2017 Instruction Type:Provider Instructions for Treatment How to access health informa tion online Indication:BMI 38.0-38.9,adult Start:18-Nov-2017 Instruction Type:Patient Education How to access health informa tion online - Detail Indication:BMI 38.0-38.9,adult Start:18-Nov-2017 Instruction Type:Patient Education Patient Instructions Indication:BMI 38.0-38.9,adult Start:18-Nov-2017 Instruction Type:Provider Instructions for Treatment How to access health informa tion online Indication:Current non-smoker Start:27-Oct-2017 Instruction Type:Patient Education How to access health informa tion online - Detail Indication:Current non-smoker Start:27-Oct-2017 Instruction Type:Patient Education Patient Instructions Indication:Current non-smoker Start:27-Oct-2017 Instruction Type:Provider Instructions for Treatment How to access health informa tion online Indication:Current non-smoker Start:20-Jul-2017 Instruction Type:Patient Education How to access health informa tion online - Detail Indication:Current non-smoker Start:20-Jul-2017 Instruction Type:Patient Education Patient Instructions Indication:Current non-smoker Start:20-Jul-2017 Instruction Type:Provider Instructions for Treatment How to access health informa tion online Indication:Current non-smoker Start:17-Jun-2017 Instruction Type:Patient Education How to access health informa tion online - Detail Indication:Current non-smoker Start:17-Jun-2017 Instruction Type:Patient Education Patient Instructions Indication:Current non-smoker Start:17-Jun-2017 Instruction Type:Provider Instructions for Treatment How to access health informa tion online Indication:BMI 37.0-37.9, adult Start:19-Oct-2016 Instruction Type:Patient Education How to access health informa tion online - Detail Indication:Current non-smoker Start:19-Oct-2016 Instruction Type:Patient Education Patient Instructions Indication:Current non-smoker Start:19-Oct-2016 Instruction Type:Provider Instructions for Treatment How to access health informa tion online Indication:Current non-smoker Start:01-Oct-2016 Instruction Type:Patient Education Patient Instructions Indication:Current non-smoker Start:01-Oct-2016 Instruction Type:Provider Instructions for Treatment How to access health informa tion online Indication:BMI 39.0-39.9,adult Start:19-Apr-2016 Instruction Type:Patient Education How to access health informa tion online - Detail Indication:BMI 39.0-39.9,adult Start:19-Apr-2016 Instruction Type:Patient Education Patient Instructions Indication:BMI 39.0-39.9,adult Start:19-Apr-2016 Instruction Type:Provider Instructions for Treatment How to access health informa tion online Indication:BMI 38.0-38.9,adult Start:20-Feb-2016 Instruction Type:Patient Education How to access health informa tion online - Detail Indication:BMI 38.0-38.9,adult Start:20-Feb-2016 Instruction Type:Patient Education Patient Instructions Indication:BMI 38.0-38.9,adult Start:20-Feb-2016 Instruction Type:Provider Instructions for Treatment How to access health informa tion online Indication:Current non-smoker Start:16-Feb-2016 Instruction Type:Patient Education How to access health informa tion online - Detail Indication:Current non-smoker Start:16-Feb-2016 Instruction Type:Patient Education Patient Instructions Indication:Current non-smoker Start:16-Feb-2016 Instruction Type:Provider Instructions for Treatment How to access health informa tion online Indication:Impaired fasting glucose Start:22-Dec-2015 Instruction Type:Patient Education How to access health informa tion online - Detail Indication:Impaired fasting glucose Start:22-Dec-2015 Instruction Type:Patient Education Patient Instructions Indication:Impaired fasting glucose Start:22-Dec-2015 Instruction Type:Provider Instructions for Treatment Patient Instructions Indication:Stress reaction Start:04-Aug-2015 Instruction Type:Provider Instructions for Treatment Patient Instructions Indication:Impaired fasting glucose Start:03-Mar-2015 Instruction Type:Provider Instructions for Treatment How to access health informa tion online Indication:Need for prophylactic vaccination and inoculation against influenza Start:27-Jan-2015 Instruction Type:Patient Education How to access health informa tion online - Detail Indication:Need for prophylactic vaccination and inoculation against influenza Start:27-Jan-2015 Instruction Type:Patient Education Patient Instructions Indication:Need for prophylactic vaccination and inoculation against influenza Start:27-Jan-2015 Instruction Type:Provider Instructions for Treatment Patient Instructions Indication:Obesity, unspecified Start:01-Nov-2014 Instruction Type:Provider Instructions for Treatment Patient Instructions Indication:Obesity, unspecified Start:22-Apr-2014 Instruction Type:Provider Instructions for Treatment Patient Instructions Indication:Near syncope Start:18-Oct-2013 Instruction Type:Provider Instructions for Treatment Patient Instructions Indication:Depressive disorder Start:25-Sep-2013 Instruction Type:Provider Instructions for Treatment instructions Indication:Depressive disorder Start:15-Mar-2013 Instruction Type:Provider Instructions for Treatment Patient Instructions Indication:Depressive disorder Start:23-Jan-2013 Instruction Type:Provider Instructions for Treatment Patient Instructions Indication:Cyst, kidney, acquired Start:17-Feb-2012 Instruction Type:Provider Instructions for Treatment Patient Instructions Indication:Depressive disorder Start:27-Jan-2012 Instruction Type:Provider Instructions for Treatment Advance Directives No Advanced Directives Records Found Name Dates Details Immunization Registry [place] - Effective on 04/12/2019. Expiration date unspecified Effective:12-Apr-2019 Name Dates Details Immunization Registry [place] - Effective on 04/12/2019. Expiration date unspecified Effective:12-Apr-2019 Name Dates Details Immunization Registry [place] - Effective on 04/12/2019. Expiration date unspecified Effective:12-Apr-2019 Name Dates Details Immunization Registry [place] - Effective on 04/12/2019. Expiration date unspecified Effective:12-Apr-2019 Name Dates Details Immunization Registry [place] - Effective on 04/12/2019. Expiration date unspecified Effective:12-Apr-2019 Name Dates Details Immunization Registry [place] - Effective on 04/12/2019. Expiration date unspecified Effective:12-Apr-2019 Name Dates Details Immunization Registry [place] - Effective on 04/12/2019. Expiration date unspecified Effective:12-Apr-2019 Name Dates Details Immunization Registry [place] - Effective on 04/12/2019. Expiration date unspecified Effective:12-Apr-2019 Name Dates Details Immunization Registry [place] - Effective on 04/12/2019. Expiration date unspecified Effective:12-Apr-2019 Name Dates Details Immunization Registry [place] - Effective on 04/12/2019. Expiration date unspecified Effective:12-Apr-2019 Name Dates Details Immunization Registry [place] - Effective on 04/12/2019. Expiration date unspecified Effective:12-Apr-2019 Name Dates Details Immunization Registry [place] - Effective on 04/12/2019. Expiration date unspecified Effective:12-Apr-2019 Name Dates Details Immunization Registry [place] - Effective on 04/12/2019. Expiration date unspecified Effective:12-Apr-2019 Advance Directive Response Recorded Date/ Time Advance Directives No April 22, 2016 9:43pm Living Will No [address], 2 019 7:58am Power of Cardiology Physician Assistant No March 21, 2019 7:58am Name Dates Details Immunization Registry [place] - Effective on 04/12/2019. Expiration date unspecified Effective:12-Apr-2019 Name Dates Details Immunization Registry [place] - Effective on 04/12/2019. Expiration date unspecified Effective:12-Apr-2019 Name Dates Details Immunization Registry [place] - Effective on 04/12/2019. Expiration date unspecified Effective:12-Apr-2019 Name Dates Details Immunization Registry [place] - Effective on 04/12/2019. Expiration date unspecified Effective:12-Apr-2019 Name Dates Details Immunization Registry [place] - Effective on 04/12/2019. Expiration date unspecified Effective:12-Apr-2019 Name Dates Details Immunization Registry [place] - Effective on 04/12/2019. Expiration date unspecified Effective:12-Apr-2019 Name Dates Details Immunization Registry [place] - Effective on 04/12/2019. Expiration date unspecified Effective:12-Apr-2019 Advance Directive Response Recorded Date/ Time Advance Directives No February 2:45pm Living Will No March 21 019 7:58am Power of Cardiology Physician Assistant No March 21, 2019 7:58am Name Dates Details Immunization Registry [place] - Effective on 04/12/2019. Expiration date unspecified Effective:12-Apr-2019 Name Dates Details Immunization Registry [place] - Effective on 04/12/2019. Expiration date unspecified Effective:12-Apr-2019 Advance Directive Response Recorded Date/ Time Advance Directives No February 1:45pm Living Will No March 21, 2 019 6:58am Power of Cardiology Physician Assistant No March 21, 2019 6:58am Advance Directive Response Recorded Date/ Time Advance Directives No February 2:45pm Chief Complaint and Reason for Visit Chief Complaint RIGHT SHOULDER xray R SHOULDER IMPINGEMENT. PT HAS RX Reason for Visit Impingement syndrome of right shoulder Shoulder pain Chief Complaint RIGHT SHOULDER xray R SHOULDER IMPINGEMENT. PT HAS RX RIGHT SHOULDER PAIN RIGHT SHOULDER Reason for Visit Impingement syndrome of right shoulder Shoulder pain Chief Complaint RIGHT SHOULDER xray R SHOULDER IMPINGEMENT. PT HAS RX RIGHT SHOULDER PAIN RIGHT SHOULDER RT SHOULDER PN/PT HAS RX Reason for Visit Impingement syndrome of right shoulder Shoulder pain Adhesive capsulitis of right shoulder Chief Complaint RIGHT SHOULDER xray RIGHT SHOULDER PAIN RIGHT SHOULDER RT SHOULDER PN/PT HAS RX R SHOULDER IMPINGEMENT. PT HAS RX Reason for Visit Impingement syndrome of right shoulder Shoulder pain Adhesive capsulitis of right shoulder Chief Complaint SCREENING Chief Complaint SCREENING CKD, STAGE 3A Chief Complaint SCREENING CKD, STAGE 3A LABS FOR 2 DOCTORS - ORDERS SCANNED. Chief Complaint LABS FOR 2 DOCTORS - ORDERS SCANNED. Chief Complaint Admit Date POISON SHRUTHI November 07, 2024 8:37 am Reason for Visit Admit Date Contact dermatitis due to poison shruthi Oct 8:37am Summary Purpose Family History No Family History Records Found Health Concerns Infection Onset Date Last Indicated Resolved Time COVID-19 Rule-Out 12/13/2022 12/13/2022 Additional Source Comments Goals (unrecognized section and content) Goals may be documented in a n alternate sectionGoals may be documented in an alternate sectionGoals may be documented in an alternate sectionGoals may be documented in an alternate sectionGoals may be documented in an alternate sectionGoals may be documented in an alternate sectionGoals may be documented in an alternate sectionGoals may be documented in an alternate sectionGoals may be documented in an alternate section No data available for this sectionGoals may be documented in an alternate sectionGoals may be documented in an alternate section INFORMATION SOURCE (unrecogn ized section and content) DATE CREATED AUTHOR 07/13/2022 [facility] DATE CREATED AUTHOR AUTHOR'S ORGANIZ ATION 12/17/2022 [facility] DATE CREATED AUTHOR AUTHOR'S ORGANIZ ATION 06/25/2023 [facility] ([place] DATE CREATED AUTHOR AUTHOR'S ORGANIZ ATION [facility] Care Teams (unrecognized sec tion and content) Team Status: Active Member Role Status Dates Dr. Renetta Angulo DO Family Provider Active Dr. Renetta Angulo DO Primary Care Provider Active Team Status: Inactive Member Role Status Dates Dr. Renetta Angulo DO Primary Care Pr ovider, Attending Provider, Referring Provider Active Team Status: Inactive Member Role Status Dates Dr. Renetta Angulo DO Primary Care Provider Active Dr. Demetrius Anderson MD Attending Provider, Referri ng Provider Active Community Product Specialist Relationship Specialty Start Date End Date Renetta Angulo DO PCP - General Internal Medicine 04/30/16 Community Product Specialist Relationship Specialty Start Date End Date Renetta Angulo DO PCP - General Internal Medicine 04/30/16 Team Status: Inactive Member Role Status Dates Dr. Renetta Angulo DO Primary Care Pr ovider, Attending Provider, Referring Provider Active Dr. Demetrius Anderson MD Other Provider Active Community Product Specialist Relationship Specialty Start Date End Date Renetta Angulo DO PCP - General Internal Medicine 04/30/16 Team Status: Inactive Member Role Status Dates Dr. Renetta Angulo DO Primary Care Provider Active Start: July 07, 2024 End: July 07, 2024 Dr. Renetta Angulo DO Attending Provider Active Start: July 07, 2024 End: July 07, 2024 Dr. Renetta Angulo DO Referring Provider Active Start: July 07, 2024 End: July 07, 2024 Team Status: Active Member Role/Relationship Status Dates Dr. Renetta Angulo DO Family Provider Active Dr. Renetta Angulo DO Primary Care Provider Active Team Status: Inactive Member Role/Relationship Status Dates Dr. Renetta Angulo DO Primary Care Provider Active Start: October 09, 2024 Dr. Mira Brooks MD Attending Provider Active Start: October 09, 2024 Team Status: Inactive Member Role/Relationship Status Dates Dr. Renetta Angulo DO Primary Care Provider Active Start: November 07, 2024 End: November 07, 2024 Dr. Renetta Angulo DO Referring Provider Active Start: November 07, 2024 End: November 07, 2024 RED Renteria Attending Provider Active Star t: November 07, 2024 End: November 07, 2024 Source Comments (unrecognize d section and content) In the event this informatio n is protected by the Federal Confidentiality of Alcohol and Drug Abuse Patient Records regulations: The Federal rules restrict any use of the information to criminally investigate or prosecute any alcohol or drug abuse patient.[facility] Center[facility] the event this information is protected by the Federal Confidentiality of Alcohol and Drug Abuse Patient Records regulations: The Federal rules restrict any use of the information to criminally investigate or prosecute any alcohol or drug abuse patient.[facility] Center[facility] the event this information is protected by the Federal Confidentiality of Alcohol and Drug Abuse Patient Records regulations: The Federal rules restrict any use of the information to criminally investigate or prosecute any alcohol or drug abuse patient.[facility] Reason for Visit (unrecogniz ed section and content) Reason Comments Nasal Congestion drainage, cough, sob x 5 days Reason Comments Results FOR RECORDS PERTAINING TO PATIENTS WHO ARE OR HAVE BEEN ENROLLED IN A CHEMICAL DEPENDENCY/SUBSTANCEABUSE PROGRAM, SOME INFORMATION MAY BE OMITTED. This clinical summary was aggregated from multiple sources. Caution should be exercised in using it in the provision of clinical care. This summary normalizes information from multiple sources, and as a consequence, information in this document may materially change the coding, format and clinical context of patient data. In addition, data may be omitted in some cases. CLINICAL DECISIONS SHOULD BE BASED ON THE PRIMARY CLINICAL RECORDS. [facility] [employer] [facility]. provides no warranty or guarantee of the accuracy or completeness of information in this document.
[2024-12-15 09:26] LABS: Color, Urine Yellow (Yellow); Glucose, Dipstick Normal (Normal); Ketone-Dipstick Negative (Negative); Leukocyte Esterase-Dipstick Negative /ul (Negative); Nitrite-Dipstick Negative (Negative); Occult Blood-Urine Negative /ul (Negative); Protein-Dipstick 15 mg/dl (Negative); Specific Gravity, Urine 1.015 (1.002-1.030); Urine Bilirubin Dipstick Negative (Negative)
[2024-12-15 09:32] LABS: Creatinine, Urine (random) 160.00 mg/dL (28.00-217.00); Microalbumin,Random Urine < 12.0 mg/L (<20 mg/L)
[2024-12-15 09:34] LABS: Hematocrit 40.1 % (37-47); Hemoglobin 13.8 g/dL (12.0-15.0); Immature Granulocytes Count 0.010 X10^3/uL (0.0-0.0); Mean Corp Hgb Conc 34.4 g/dL (32-36); Mean Corpuscular Volume 82.0 fL (81-99); Mean Platelet Vol. 10.2 fl (6.2-12.0); NRBC Flagged by Analyzer 0 % (0-5); Platelet Count 222 K/mm3 (150-450); RBC Distribution Width CV 13.2 % (11.6-14.6); RBC Distribution Width SD 38.6 fl (35.1-43.9); Red Blood Count 4.89 M/mm3 (4.2-5.4); White Blood Count 5.2 K/mm3 (4.4-11.0)
[2024-12-15 09:48] LABS: AST(SGOT) 17 U/L (<=31); Alanine Aminotransfer ALT/SGPT 14 U/L (<=34); Albumin, Serum 4.2 g/dL (3.5-5.0); Alkaline Phosphatase 84 U/L (35-104); Anion Gap 8 (5-15); BUN 24 mg/dL (4-19); BUN/Creat Ratio 23.0 RATIO (10-20); Calcium,Total 10.3 mg/dL (7.6-11.0); Carbon Dioxide 25.6 mmol/L (21.0-32.0); Chloride 107 mmol/L (98-108); Cholesterol 204 mg/dL (<=200); Ferritin 645 ng/mL (22-378); Globulin 2.4 g/dL (2.2-4.2); Glucose 100 mg/dL (70-99); Low Density Lipoprotein Calc. 137 mg/dL; Potassium 4.7 mmol/L (3.3-5.1); Triglycerides 72 mg/dL; Very Low Density Lipoprotein 14 mg/dL (5-40); Vitamin B12 597 pg/mL (180-914); cholesterol:hdl ratio screen 3.87
[2024-12-15 10:00] LABS: Iron 72 ug/dL (50-170); Iron Binding Capacity,Total 258 ug/dL (250-450); Iron Binding Capacity,Unsat 186 ug/dL (228-428); Magnesium 2.3 mg/dL (1.5-2.2)
== END | disposition home or self-care (01) ==
LOC: LAB 08:22
PROVIDERS: PCP Internal Medicine; Referring Provider Internal Medicine; Visit Provider Internal Medicine
DX: E53.8 Deficiency of other specified B group vitamins (principal); I10 Essential (primary) hypertension; R73.01 Impaired fasting glucose; G25.81 Restless legs syndrome
CPT/HCPCS: 36415; 80053; 80061; 81002; 82043; 82570; 82607; 82728; 83036; 83540; 83550; 83735; 84443; 85025

== ENCOUNTER → 2024-12-25 | Outpatient (CLI) | payer OTHER, SELFPAY ==
--- NOTE | 2024-12-25 15:53 | BI_ITS ---
EXAM: SCRN MAMM (CAD)W/ELIJAH BILAT DATE: 12/25/2024 CLINICAL HISTORY: F, Age 59 y/o , SCREENING No family history. TECHNIQUE: Procedure Code: [id number] Modality: MG Procedure: SCRN MAMM (CAD)W/ELIJAH BILAT COMPARISON: Prior exam(s) dated November 18, 2023.. FINDINGS: TISSUE DENSITY: The breasts are extremely dense, which lowers the sensitivity of mammography. Bilateral Breast Mammographic Findings: No significant masses, calcifications or other abnormalities are identified. No suspicious masses, areas of developing architectural distortion, or suspicious calcifications. There has been no significant interval change. BI/SCRN MAMM (CAD)W/ELIJAH BILAT IMPRESSION: Stable bilateral screening mammogram. OVERALL FINAL ASSESSMENT BI-RADS 1: NEGATIVE. RECOMMENDATION: Routine annual follow-up in 1 Year A letter with findings and recommendations will be mailed to the patient. Reading Location: [place] [id number]
--- NOTE | 2024-12-25 15:56 | BD_ITS ---
PROCEDURE: DEXA BONE DENSITY STUDY 12/25/2024 REASON FOR EXAM: F, age 59 y/o . Postmenopausal. TECHNIQUE: Procedure Code: BDDBD Modality: DX Procedure: DEXA BONE DENSITY STUDY COMPARISON: January 10, 2018. FINDINGS: BMD and T-SCORES Lumbar spine: 0.902 g/cm2, T-score -1.3 Levels: L1 through L4 Change from prior: Loss of 21.2%. Left femoral neck: 0.712 g/cm2, T-score -1.2 Femoral neck comparison data not recommended for monitoring change. Left total hip: 0.854 g/cm2, T-score -0.7 Change from prior: Loss of 23.2%. Right femoral neck: 0.709 g/cm2, T-score -1.3 Femoral neck comparison data not recommended for monitoring change. Right total hip: 0.857 g/cm2, T-score -0.7 Change from prior: Loss of 22.4%. The World Health Organization has defined the following categories based on bone density: Normal bone density: T-score equal to or greater than -1.0 Osteopenia: T-score between -1.0 and -2.5 Osteoporosis: T-score equal to or less than -2.5 FRAX (or Comparable) Fracture Risk Assessment: 10 Year Probability of Fracture: Major Osteoporotic Fracture: 12th% Hip Fracture: 1.4% (Note: FRAX is not to be reported in setting of normal range bone density, osteoporosis on DEXA, known history of osteoporosis, prior osteoporotic hip or vertebral fracture, or for any patient undergoing pharmacological treatment for bone loss.) The National Osteoporosis Foundation (NOF) recommends pharmacological treatment for patients with a FRAX 10-year risk of 3% or higher for a hip fracture, or 20% or higher for a major osteoporotic fracture, to prevent osteoporosis and reduce fracture risk. The patient does meet the pharmacological treatment recommendations for prevention of osteoporosis. BD/Dexa Bone Density Study IMPRESSION: OSTEOPENIA. Recommend follow-up as clinically warranted. Reading Location: [place] [address]
== END | disposition home or self-care (01) ==
LOC: OPBD 15:52
PROVIDERS: PCP Internal Medicine; Referring Provider Internal Medicine; Visit Provider Internal Medicine
DX: Z12.31 Encounter for screening mammogram for malignant neoplasm of breast (principal); Z78.0 Asymptomatic menopausal state
CPT/HCPCS: 77063; 77067; 77080

== ENCOUNTER → 2025-01-01 | Outpatient (CLI) | payer OTHER, SELFPAY ==
--- NOTE | 2025-01-01 08:46 | US_ITS ---
PROCEDURE: ABDOMEN LIMITED 01/01/2025 REASON FOR EXAM: ABDOMINAL ULTRASOUND, LIMITED ([id number]) : LIVER TECHNIQUE: Procedure Code: USABDL Modality: US Procedure: ABDOMEN LIMITED COMPARISON: None FINDINGS: GALLBLADDER: Surgically removed COMMON BILE DUCT: Measures 6 mm. No intrahepatic biliary dilatation. LIVER: Normal size. Normal echotexture. Multiple cystic lesions throughout the liver measuring 1.3 x 1.6 x 1.5 cm within the left and 1.7 x 1.4 x 1.2 cm and 1.0 x 1.1 x 0.9 cm within the right. RIGHT KIDNEY: Not well seen Pancreas is unremarkable. US/Abdomen Limited IMPRESSION: Multiple cystic lesions throughout the liver measuring 1.3 x 1.6 x 1.5 cm withi n the left and 1.7 x 1.4 x 1.2 cm and 1.0 x 1.1 x 0.9 cm within the right. Reading Location: [id number]
== END | disposition home or self-care (01) ==
PROVIDERS: PCP Internal Medicine; Referring Provider Internal Medicine; Visit Provider Internal Medicine
DX: K76.9 Liver disease, unspecified (principal)
CPT/HCPCS: 76705

== ENCOUNTER → 2025-02-25 | Outpatient (CLI) | payer OTHER, SELFPAY | END | disposition home or self-care (01) | LOC: PSN 12:03 | PROVIDERS: PCP Internal Medicine; Referring Provider Nurse Practitioner Family; Visit Provider Nurse Practitioner Family | DX: R06.02 Shortness of breath (principal) | CPT/HCPCS: 94060; 94726; 94729 ==

== ENCOUNTER → 2025-03-18 | Outpatient (CLI) | payer OTHER, SELFPAY | END | disposition home or self-care (01) | LOC: SL 11:20 | PROVIDERS: PCP Internal Medicine; Referring Provider Nurse Practitioner Family; Visit Provider Nurse Practitioner Family | DX: G47.33 Obstructive sleep apnea (adult) (pediatric) (principal) | CPT/HCPCS: 95806 ==